=== PATIENT | female | born 1950 | race Caucasian/White ===

== ENCOUNTER 2019-03-02 13:00 | Outpatient (RCR) | payer MEDICARE, SELFPAY ==
--- NOTE | 2019-02-16 07:52 | HP.PTEVAL_ITS ---
Patient's Visit Information SHANE BRITO is a 69 year old F referred to Physical Therapy by GRACIE GarciaC with a diagnosis of spinal stenosis. Date of Evaluation: 02/16/19 Physical Therapist: Barrera Allen, PT, ATC - Visit Plan Frequency: 2x /Week Duration: 2-4 Weeks Plan: SKTC/DKTC, core stab ex's, L LE strengthening, postural edu, nustep, and HEP - Subjective Findings: Pt reports she has had LBP for 10 years. Pt reports the pain has become consistent now, but the bad pain comes and goes. Pt reports 2 years ago her surgeon told her she would eventually need surgery, and she believes she is getting to that point. Pt reports she had x rays taken which revealed she has spinal stenosis. Pt reports she was told she has to do PT prior to having surgery. Pt reports she has constant tingling and numbness in her L LE which extends to her toes. Pt reports she has significant sleep difficulty secondary to pain. Pt reports she can sleep for about 4 hours until she has to wake up from the pain. Pt reports house chores and batheing her dog causes pain. Pt reports sitting is worse than standing. Pt reports it feels really good to bend forward. Pain is 5/10 at rest, 8/10 at worst. - Pain LBP Pain Intensity (Out of 10): 5 Pain Intensity Range: 8 - Objective Neuro: B LE sensation is WNL to light touch. B patellar reflex= 2/3. MMT: R LE is grossly 5/5 throughout. L LE is grossly 4/5 throughout. ROM: Pt is moderately limited with L/S extension. All other ranges are within normal limits. Gait: Pt begins to xperience significant LBP and L LE radiculopathy after 600'. Still able to ambulate 1000 feet but pain continued to increase. Repeated movements: SKTC/DKTC with 10 sec hold x 3 ea - Goals Goal 1:: Decrease LBP x 50% to aid with sleep Goal Time Frame: 2-4 Weeks Goal 2:: Decrease the frequency and intensity of L LE radiculopathy x 25% to aid with ambulation Goal Time Frame: 2-4 Weeks Goal 3:: I with HEP Goal Time Frame: 2-4 Weeks - Rehabilitation Potential Physical Therapy Diagnosis: Pt has LBP, limited L/S ROM, and L LE weakness secondary to spinal stenosis Rehabilitation Potential: Good - Anticipated Interventions Patient/Client Instruction: Educate patient on: Condition, Plan of Care For the Purpose of:: To improve self management Therapeutic Exercise to Include: Strength training, Endurance training, Postural training, Dynamic Lumbar Stabilization For the Purpose of:: To decrease pain, To increase ROM, To improve muscle performance and motor function Cryotherapy (ice pack, ice massage): Yes Thermo therapy (hot pack): Yes For the Purpose of:: To decrease pain Thank you for the opportunity to evaluate your patient. For Medicare and Medicare HMO plans, please review the plan of care and approve it. It will need to be FAXED BACK to us at [phone] for Medicare purposes. For Medicare only, by signing this I certify the plan of care. Please let me know if there are questions or concerns regarding this plan of care. Physician Signature: Date:___
--- NOTE | 2019-03-02 13:27 | HP.PTDCSUM ---
HP - PT D/C Summary It has been my pleasure to treat SHANE BRITO under orders from Shira Avila, JOSE-C, for the diagnosis of spinal stenosis for a total of 5 visit(s). Discharge Date: Please see the following information for a summary of their discharge status. - Subjective Subjective: Pt reports PT has only increased her pain - Pain LBP Pain Intensity (Out of 10): 6 - Overall Improvement % Improvement: 0 - Objective Objective/Function: Pain has remained at 6/10. L LE radiculopathy has remained the same. Pt is not making any progress at this time. - Goals Goal 1:: Decrease LBP x 50% to aid with sleep Goal Progress: Not Progressing Goal 2:: Decrease the frequency and intensity of L LE radiculopathy x 25% to aid with ambulation Goal Progress: Not Progressing Goal 3:: I with HEP Goal Progress: Goal Met - Plan Plan: Discontinue, RTD - D/C Information If there are questions or concerns regarding this patient's physical therapy, please feel free to call me at [phone]. Thank you for the referral of this patient. Sincerely, Barrera Allen, PT, ATC
== END 2019-03-02 14:44 | disposition home or self-care (01) ==
LOC: PT 13:00
PROVIDERS: Family Provider Surgery; PCP Surgery; Visit Provider Nurse Practitioner
DX: M48.061 Spinal stenosis, lumbar region without neurogenic claudication (principal)
CPT/HCPCS: 97110; 97161; 97530

== ENCOUNTER 2021-09-17 10:00 | Outpatient (RCR) | payer MEDICARE, SELFPAY ==
--- NOTE | 2021-08-27 09:02 | HP.PTEVAL_ITS ---
Patient's Visit Information SHANE BRITO is a 71 year old F referred to Physical Therapy by PENNY Pena with a diagnosis of LUMBAR STENOSIS WITH NEUROGENIC CLAUDICATION. Date of Evaluation: 08/27/21 Physical Therapist: Elyssa Ahumada, PT, Cert MDT - Visit Plan Frequency: 2-3x /Week Duration: 4-6 Weeks Plan: AQUATIC THERAPY FOR PAIN RELIEF, POSTURE CORRECTION/STRENGTHENING, INSTRUCTION IN APPROPRIATE BODY MECHANICS AND ACTIVITY MODIFICATIONS. DLS START ING WITH A NEUTRAL SPINE PROGRESSING ROM TOLERATED. NOEMI LE ROM, STRETCHING AND STRENGTHENING. HEP INSTRUCTION. 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 MWF DOES TREADMILL OR ELYPICAL OR WEIGHTS. T,TH DOES 30 MIN ON TREADMILL. [employer]. Interview. [employer]. [employer]ION VOLUNTEER. TRAV[place]ROUGHOUT [place] HAS 6 PROJECTS PLANNED THIS YEAR. Present symptoms: LOW BACK PAIN NOEMI, LEFT FOOT IS ALWAYS NUMB AND RIGHT FOOT IS STARTING TO GET NUMB TOO. PAIN IN RIGHT HIP AND THIGH. RIGHT LE WEAKNESS. Present since: ABOUT 6 MONTHS. Pain Scale: WORST 5/10, LEAST 3/10. Currently: 3/10. Commenced as a result of: NO APPARENT REASON. Symptoms at onset: RIGHT LOW BACK AND HIP PAIN. Worse: TRYING TO LIE DOWN AND SLEEP AT NIGHT, PROLONGED SITTING, RISING FROM SITTING AND TRYING TO WALK AFTER SITTING, WALKING, TWISTING, LIFTING AND TWISTING TOGETHER. STANDING. Better: HEAT, ADVIL. Disturbed sleep: YES. Previous history/Previous treatment: BACK SURGERY FOR STENOSIS APPROX [address] COSTA MONK. LEFT L3 AND LEFT L4 UNILATERAL LAMINECTOMY WITH LEFT L3-L4 MICRODISCECTOMY, LEFT L3-L4 PARTIAL FACETECTOMY AND FORMAINOTOMIES AND L3 AND L4 ON 05/11/19. NO AAKASH'S. PT PRIOR TO SURGERY BUT IT MADE IT WORSE. NO CHIROPRACTOR. LUMBAR MRI [facility] 2017 SHOWING DDD AND SPINAL STENOSIS. Treatment this episode: PT CONSULT. Coughing/sneezing/straining: NEGATIVE. Gait: LIMPING ON RIGHT LE. Difficulty initiating urination: NO. DENIES BOWEL AND BLADDER DYSFUNCTION. Accidents: NO. Unexplained weight loss: NO. Imaging: RECENT [facility] OF LOW BACK - PATIENT REPORTS IT WAS NORMAL. RECOMMENDED PT AND IF THAT DOESN'T HELP WILL DO MRI. PMH/Recent major surgery: ASTHMA, FIBROMYALGIA, ARTHRITIS, *OSTEOPROSIS*, SLEEP AID. OTHER: LEAVING FOR MISSION TRIP BEGINNING OF SEPTEMBER 2021. - Objective Sitting/Standing Posture: POOR. REDUCED LORDOSIS BUT NO RELEVENT LATERAL SHIFT. Active Correction of posture: NE. Other Observations: INDEP GAIT INTO PT WITHOUT ANY ASSISTIVE DEVICES BUT LIMPING ON RIGHT LE. LIMP IS WORSE UPON INITIATION OF GAIT AFTER SITTING. INDEP TRANSFER SIT TO STAND WITHOUT UE ASSIST. Motor deficit: NOEMI LE STRENGTH 5/5 WITH MMT'ING EXCEPT HIPS 4/5. Sensory deficit: NOEMI LE LIGHT TOUCH SENSATION GROSSLY INTACT AND SYMMETRICAL EXCEPT NOEMI FEET WITH DECREASED SENSATION. ROM deficit: NOEMI LE'S WFL. Reflexes: RIGHT LE QUAD AND ACHILLES 2/3. L LE ABSENT. Dural Signs: NEGATIVE NOEMI LE'S. Lumbar mvmt loss: flex - NIL. ext - MOD. R SG - MOD. L SG - MOD. PATIENT C/O INCRASED LBP WITH LUMBAR EXT AND NOEMI SG ROM TESTING. Core strength: POOR. Palpation: NO ACUTE TENDERNESS WITH PALPATION OF THE LOWER THORACIC, LUMBAR OR SACRAL REGIONS. TREATMENT: NEUROMUSCULAR REEDUCATION - RETRAINING OF MVMT AND POSTURE FOR SITTING, LYING AND STANDING ACTIVITIES. - Balance/Special Test Scores Oswestry Low Back Score: 10 - Goals Goal 1:: DECREASE C/O LOW BACK AND RIGHT LE SX'S. Goal Time Frame: 4-6 Weeks Goal 2:: IMPROVE LIFTING, SITTING, STANDING, SLEEP, SOCIAL LIFE, TRAVEL AND HOMEMAKING FUNCTION Goal Time Frame: 4-6 Weeks Goal 3:: INSTRUCT IN PROPHYLAXIS Goal Time Frame: 4-6 Weeks - Anticipated Interventions Patient/Client Instruction: Educate patient on: Condition, Plan of Care, Risk Factors For the Purpose of:: To improve self management Therapeutic Exercise to Include: Strength training, Body mechanics, Postural training, Flexibilty training, Gait and locomotor training, Neuromotor development, In an aquatic setting, Dynamic Lumbar Stabilization For the Purpose of:: To decrease pain, To increase ROM, To improve muscle performance and motor function, To increase tolerance to activity/condition/position, To improve ability of physical actions for home/community/work/leisure, To improve gait and locomotor functions Thank you for the opportunity to evaluate your patient. For Medicare and Medicare HMO plans, please review the plan of care and approve it. It will need to be FAXED BACK to us at [phone] for Medicare purposes. For Medicare only, by signing this I certify the plan of care. Please let me know if there are questions or concerns regarding this plan of care. Physician Signature: Date:
--- NOTE | 2021-09-17 11:12 | HP.PTDCSUM_ITS ---
It has been my pleasure to treat SHANE BRITO referred by PENNY Pena, with the diagnosis of LUMBAR STENOSIS WITH NEUROGENIC CLAUDICATION for a total of 10 visit(s). Discharge Date: 09/17/21 Please see the following information for a summary of their discharge status. Subjective: PATIENT REPORTS SHE IS DOING A LOT BETTER. SHE REPORTS THE PAIN IN HER HIPS IS BETTER. SHE REPORTS SHE IS SLEEPING BETTER TOO. IN GENERAL SHE REPORTS SHE FEELS SHE IS STRONGER AND CAN CORRECT HER MECHANICS NOW FOR PAIN RELIEF. LEAVING FOR [place]ION TRIP NEXT THURSDAY. PLANS TO USE HER MEMBERSHIP TO CONTINUE INDEP WATER PROGRAM BEFORE AND AFTER MISSION TRIP. PATIENT REPORTS HER BACK STILL HURTS THOUGH. HAPPY TO REPORT SHE WAS ABLE TO TRAVEL TO [place] TO SEE HER DAUGHTER WITH MUCH LESS PAIN AND THAT WAS A BIG IMPROVEMENT. NO CHANGE IN FOOT SX'S. Lumbar Spine Pain Intensity (Out of 10): 6 RLE Pain Intensity (Out of 10): 6 LLE Pain Intensity (Out of 10): 0 % Improvement: 75 Objective/Function: PATIENT WAS SEEN TODAY FOR RE-ASSESSMENT OF PROGRESS TOWARD THE SET PT GOALS AND THE NEED FOR FURTHER PHYSICAL THERAPY VS READINESS FOR DISCHARGE. UPON EXAM TODAY, PATIENT IS MAKING GOOD PROGRESS TOWARD ALL PT GOALS BUT HAS TO STOP AT THIS TIME DUE TO LEAVING FOR A MISSION TRIP. PATIENT CONTINUES TO HAVE A LIMP ON THE RIGHT LE AND LUMBAR MVMT LOSS SIMILAR TO INITIAL EVAL. SHE IS ABLE TO RISE FROM SITTING AND INITIATE GAIT MUCH BETTER NOW THOUGH. PHYSICIAN RE-ASSESSMENT RECOMMENDED AND PATIENT AGREEABLE. INSTRUCTED PATIENT IN PROPER USE OF BACK BRACE WHILE ON MISSION TRIP. INSTRUCTED PATIENT ON APPROPRIATE RESUMPTION OF EX AFTER MISSION TRIP BASED ON SX'S. PATIENT COMMUNICATED A GOOD UNDERSTANDING OF ALL INSTRUCTIONS AFTER GIVEN. Goal 1:: DECREASE C/O LOW BACK AND RIGHT LE SX'S. Goal Progress: Progressing Goal 2:: IMPROVE LIFTING, SITTING, STANDING, SLEEP, SOCIAL LIFE, TRAVEL AND HOMEMAKING FUNCTION Goal Progress: Progressing Goal 3:: INSTRUCT IN PROPHYLAXIS Goal Progress: Progressing Plan: D/C DUE TO UPCOMING MISSION TRIP X APPROX 1 MONTH. If there are questions or concerns regarding this patient's physical therapy, please feel free to call me at [phone]. Thank you for the referral of this patient. Sincerely, Elyssa Ahumada, PT, Cert MDT Balance/Gait/Functional tests - Balance/Special Test Scores Oswestry Low Back Score: 9
== END 2021-09-17 12:23 | disposition home or self-care (01) ==
LOC: PT 10:00
PROVIDERS: PCP Family Medicine; Referring Provider Nurse Practitioner Acute Care; Visit Provider Nurse Practitioner Acute Care
DX: M48.062 Spinal stenosis, lumbar region with neurogenic claudication (principal)
CPT/HCPCS: 97112; 97113; 97164

== ENCOUNTER 2022-02-20 10:30 | Outpatient (RCR) | payer MEDICARE, SELFPAY ==
--- NOTE | 2022-01-23 08:59 | HP.PTEVAL ---
Patient's Visit Information SHANE BRITO is a 71 year old F referred to Physical Therapy by PENNY Cheatham with a diagnosis of LUMBAR DDD, RADICULITIS, STENOSIS, IVD DISPLACEMENT AND SPONDYLOSIS.. Date of Evaluation: 01/23/22 Physical Therapist: Elyssa Ahumada, PT, Cert MDT - Visit Plan Frequency: 1x/Week Duration: 3 Weeks Plan: INSTRUCTION IN GYM EX PROGRAM FOR CORE STABILITY AND LE STRENGTH STARTING SLOW AND INSTRUCTING PATIENT HOW TO SAFELY PROGRESS INDEP'LY. - Subjective Work/Leisure: RETIRED. 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 MWF DOES TREADMILL OR ELYPICAL OR WEIGHTS. T,TH DOES 30 MIN ON TREADMILL. [employer]. [employer]ION VOLUNTEER. TRAV[place]S THROUGHOUT [place] HAS 6 PROJECTS PLANNED THIS YEAR. Present symptoms: MILD LOW BACK PAIN NOEMI, LEFT FOOT IS ALWAYS NUMB AND RIGHT FOOT IN R FOOT IS ALWAYS NUMB TOO BUT L>R. INTERMITTENT NOEMI HIP PAIN MAINLY AT NIGHT. Present since: ABOUT A YEAR OR MORE AGO. Pain Scale: WORST 3/10, LEAST 1/10. Currently: /10. Commenced as a result of: NO APPARENT REASON. Symptoms at onset: RIGHT LOW BACK AND HIP PAIN. Worse: BENDING, LIFTING AND TWISTING TOGETHER Better: NORMAL MOVEMENT. Disturbed sleep: NO Previous history/Previous treatment: BACK SURGERY FOR STENOSIS APPROX [address] COSTA MONK. LEFT L3 AND LEFT L4 UNILATERAL LAMINECTOMY WITH LEFT L3-L4 MICRODISCECTOMY, LEFT L3-L4 PARTIAL FACETECTOMY AND FORMAINOTOMIES AND L3 AND L4 ON 05/11/19. PT PRIOR TO SURGERY BUT IT MADE IT WORSE. NO CHIROPRACTOR. LUMBAR MRI [facility] 2016 SHOWING DDD AND SPINAL STENOSIS. Treatment this episode: AAKASH WITH DR. ZAZUETA ABOUT A MONTH AGO. OTHER: PATIENT REPORTS SHE IS CURRENTLY DOING GOOD AND SHE RELATES THE IMPROVEMENT TO A COMBINATION OF AQUATIC THERAPY AND THE AAKASH. SHE IS BACK TODAY TO SEE IF SHE CAN PROGRESS TO A SAFE LAND EX PROGRAM. HAS NOT EXERCISED WITH WEIGHT MACHINES SINCE BEFORE SHE DID THE AQUATIC THERAPY. SHE REPORTS SHE CONTINUED HER WATER EX PROGRAM UNTIL ABOUT A MONTH AGO AND FEELS SHE IS MIGHT BE READY TO PROGRESS TO LAND NOW. Coughing/sneezing/straining: NEGATIVE. Gait: NORMAL. Difficulty initiating urination: NO. DENIES BOWEL AND BLADDER DYSFUNCTION. Accidents: NO. Unexplained weight loss: NO. Imaging: NONE RECENT THAT PATIENT CAN RE-CALL BUT SHE THINKS SHE DID HAVE AN MRI SOMEWHERE THIS YEAR. PMH/Recent major surgery: ASTHMA, FIBROMYALGIA, ARTHRITIS, *OSTEOPROSIS*. - Objective Sitting/Standing Posture: POOR. REDUCED LORDOSIS BUT NO RELEVENT LATERAL SHIFT. Active Correction of posture: NE. Other Observations: INDEP GAIT INTO PT WITHOUT ANY ASSISTIVE DEVICES OR LIMPING ON RIGHT LE. INDEP TRANSFER SIT TO STAND WITHOUT UE ASSIST. Motor deficit: NOEMI LE STRENGTH 5/5 WITH MMT'ING EXCEPT HIPS 4/5. Sensory deficit: NOEMI LE LIGHT TOUCH SENSATION GROSSLY INTACT AND SYMMETRICAL EXCEPT NOEMI FEET WITH DECREASED SENSATION. ROM deficit: NOEMI LE'S WFL. Dural Signs: NEGATIVE NOEMI LE'S. Lumbar mvmt loss: flex - NIL. ext - MOD. R SG - MOD. L SG - MOD. PATIENT DENIES LBP WITH LUMBAR EXT AND NOEMI SG ROM TESTING. Core strength: FAIR. - Balance/Special Test Scores Oswestry Low Back Score: 1 - Goals Goal 1:: PATIENT WILL BE INDEP WITH A GYM EX PROGRAM TO IMPROVE CORE STABILITY AND LE STRENGTH. Goal Time Frame: 2 Weeks - Anticipated Interventions Patient/Client Instruction: Educate patient on: Benefits of Fitness Program For the Purpose of:: To improve self management Therapeutic Exercise to Include: Strength training, Body mechanics, Postural training For the Purpose of:: To improve muscle performance and motor function Thank you for the opportunity to evaluate your patient. For Medicare and Medicare HMO plans, please review the plan of care and approve it. It will need to be FAXED BACK to us at [phone] for Medicare purposes. For Medicare only, by signing this I certify the plan of care. Please let me know if there are questions or concerns regarding this plan of care. Physician Signature: Date:
--- NOTE | 2022-02-20 11:00 | HP.PTDCSUM ---
It has been my pleasure to treat SHANE BRITO referred by PENNY Cheatham, with the diagnosis of LUMBAR DDD, RADICULITIS, STENOSIS, IVD DISPLACEMENT AND SPONDYLOSIS. for a total of 4 visit(s). Discharge Date: 02/20/22 Please see the following information for a summary of their discharge status. Subjective: PATIENT REPORTS SHE IS DOING REALLY GOOD. NOEMI LOW Pain Intensity (Out of 10): 2 % Improvement: 100 Objective/Function: PATIENT WAS SEEN TODAY FOR RE-ASSESSMENT OF PROGRESS TOWARD THE SET PT GOALS AND THE NEED FOR FURTHER PHYSICAL THERAPY VS READINESS FOR DISCHARGE (SEE THER EX ABOVE) UPON EXAM TODAY: PATIENT DEMONSTRATED AND COMMUNICATED A GOOD UNDERSTANDING OF ALL INSTRUCTIONS AFTER GIVEN. WRITTEN GYM EX LOG PROVIDED TO PATIENT. ABLE TO GET FEET UP ON LEG PRESS WITHOUT DIFFICULTY TODAY. MINIMAL CUES NEEDED WITH CYBEX CELI EX'S. AND WTS ADJUSTED A BIT TO REMAIN PAINFREE AND USE GOOD TECHNIQUE. ALL GOALS MET. Goal 1:: PATIENT WILL BE INDEP WITH A GYM EX PROGRAM TO IMPROVE CORE STABILITY AND LE STRENGTH. Goal Progress: Goal Met Plan: D/C TO INDEP EX PROGRAMS. PATIENT AGREEABLE. If there are questions or concerns regarding this patient's physical therapy, please feel free to call me at [phone]. Thank you for the referral of this patient. Sincerely, Elyssa Ahumada, PT, Cert MDT Balance/Gait/Functional tests - Balance/Special Test Scores Oswestry Low Back Score: 0
== END 2022-02-20 13:08 | disposition home or self-care (01) ==
LOC: PT 10:30
PROVIDERS: PCP Family Medicine; Referring Provider Nurse Practitioner Family; Visit Provider Nurse Practitioner Family
DX: M51.17 Intervertebral disc disorders with radiculopathy, lumbosacral region (principal); M48.07 Spinal stenosis, lumbosacral region; M47.27 Other spondylosis with radiculopathy, lumbosacral region
CPT/HCPCS: 97110; 97162; 97164; 97530

== ENCOUNTER 2023-02-26 08:00 | Outpatient (RCR) | payer MEDICARE, SELFPAY ==
--- NOTE | 2023-01-21 08:15 | HP.OTEVAL ---
Patient's Visit Information Visit Information Visit Information: SHANE BRITO is a 72 year old F, referred to Occupational Therapy by Dr. Patric Roberts MD, with a diagnosis of ganglion cyst right LF. Date of Evaluation: 01/20/23 Occupational Therapist: Valerie Barnes, OTR/Remy, CHT Subjective Subjective: This 72 year old female was seen for OT eval with dx of ganglion cyst of right LF. pt had sx. on January 15, 2023 and arrives today for evaluation. pt states really no pain and minimal swelling. states she is changing incision dressing daily. admits she is not performing her ex. 6-8x a day per OT rec'd. ADLs Dressing: Pants and Socks Bathing: Handle washcloth & soap and Wash hair Kitchen: Peel fruits & vegetables, Open jars, Open bottle caps, Lift gallon of milk and Lift saucepan Comments: Due to supportive splint pt limited with IND use of right hand for all ADls and IADLs Pain left LF: Current Pain Intensity: 1 Pain Intensity Range: 1 Objective Objective/Observation: incision clean-dry- red with slight swelling ROM MP: right LF 0/80 PIP: right LF -25/30 DIP: right LF 0/5 ROM Comments: pt demo with healing incision Edema Other: slight signs of swelling Sensation Sensation Comments: denies Quick DASH-Disab of Arm,Shoulder& Hand Quick DASH Score: 45.4525 Goals Goal:Daily scar massage when approriate: Yes Goal:ROM equal to unaffected hand: Yes Goal:Founder And Chief Technical Officer/Pinch strength at least 75% of unaffected hand: Yes Comment: will not initiate until week 6 Goal:No pain with affected hand use: Yes Goal:Decrease scar hypersensitivity: Yes Other Goal: Eval tx AAROM/AROM to digits edema reduction tech remove drssing begin short arch ROM digital gutter splint May progress to full ROM at 3 weeks s/p and then orthosis at night x 4 weeks Rehabilitation General Assessment: Pt arrives5 days following ganglion cyst removal of right LF. Pt also states sx did remove some spurs and cleaned up finger. Pt demo with newly healing incision and limited ROM increasing need of assistance with ADLs and IADLs. pt would benefit from skilled OT services 1-2x week for 4-6 weeks to assist pt in returning to her PLOF. Rehabilitation Potential: Good Anticipated Interventions Anticipated Interventions: A/AAROM/PROM, Edema Control, Scar Care, Triggerpoint Release, Modalities, Orthoses, Joint Protection/Energy Conservation, Ergonomic Education, Education re Diagnosis and Home Program Visit Plan Frequency: 1-2x /Week Duration: 6 Weeks General Plan: Eval tx AAROM/AROM to digits edema reduction tech remove drssing begin short arch ROM digital gutter splint May progress to full ROM at 3 weeks s/p and then spling at night x 4 weeks TEXT: Thank you for the opportunity to evaluate your patient. For Medicare and Medicare HMO plans, please review the plan of care and approve it. It will need to be FAXED BACK to us at [phone] for Medicare purposes. Please let me know if there are questions or concerns regarding this plan of care. Physician Signature: Date:
--- NOTE | 2023-02-26 08:31 | HP.OTREVAL ---
Re-Evaluation Intro: Dr. Patric Roberts MD, It has been my pleasure to treat SHANE BRITO over the last 9 visits for ganglion cyst right LF. Please see the progress note below for an update on the occupational therapy plan of care! Subjective Subjective: Pt arrives at 6 weeks s/p from right LF ganglion cyst removal. Pt reports no limits in her daily activities and is using her hand throughout her daily tasks. She reports no pain. Objective Objective/Function: Pt has been seen for 9 skilled OT visits. Pt is using her right little finger within functional daily tasks. Pt continues to have a lag in extension of the DIP. Patient has been educated in traction stretching, place and hold for flexion/extension for improvement in mobility. Pt was given a handout of an LMB with education of wear. Also recommended to wear gutter splint at night. Measurements were taken and are listed below. right LF MCP Current +19/109 Prior 0/80 right LF PIP Current -30/84 Prior -25/30 right LF DIP Current -10/11, with blocking flexion 15 Prior 0/5 please advise tx plan as needed therapy session was directly supervised and doc. approved by Valerie PARTIDA/Remy,CHT. Plan Plan Frequency: 1-2x /Week Duration: 6 Weeks Visits in this POC: 12 Plan: pt advised to return to wearing the gutter splint at night due to increase in PIP extension lag and LMB day to increase PIP extension pt to continue with DIP blocking pt to return to Dr. Goals Goals Patient Goals: Regain Mobility and Use Hand/Wrist/Arm Normally Again Goal:Daily scar massage when approriate: Yes Goal:ROM equal to unaffected hand: Yes Goal:Perinatal Technician/Pinch strength at least 75% of unaffected hand: Yes Goal:No pain with affected hand use: Yes Goal:Decrease scar hypersensitivity: Yes Other Goal: Eval tx AAROM/AROM to digits edema reduction tech remove drssing begin short arch ROM digital gutter splint May progress to full ROM at 3 weeks s/p and then orthosis at night x 4 weeks Anticipated Interventions Anticipated Interventions Anticipated Interventions: A/AAROM/PROM, Edema Control, Scar Care, Triggerpoint Release, Modalities, Orthoses, Joint Protection/Energy Conservation, Ergonomic Education, Education re Diagnosis and Home Program Re-Evaluation Ending Re-evaluation ending: Please do not hesitate to contact me at [phone] by phone or if you have questions or concerns regarding this new plan of care! Sincerely, Valerie Barnes OTR/L, CHT
--- NOTE | 2023-07-02 12:44 | HP.OTDCSUM ---
Discharge Summary D/C Summary: It has been my pleasure to treat SHANE BRITO under orders from Dr. Patric Roberts MD, for the diagnosis of ganglion cyst right LF for a total of 9 visit(s). Please see the following information for a summary of their discharge status. Overall Improvement % Improvement: 75 Objective Objective/Function: Pt has been seen for 9 skilled OT visits. Pt is using her right little finger within functional daily tasks. Pt continues to have a lag in extension of the DIP. Patient has been educated in traction stretching, place and hold for flexion/extension for improvement in mobility. Pt was given a handout of an LMB with education of wear. Also recommended to wear gutter splint at night. Measurements were taken and are listed below. right LF MCP Current +/109 Prior 0 right LF PIP Current - Prior - right LF DIP Current -05/06, with blocking flexion 15 Prior 0 therapy session was directly supervised and doc. approved by Valerie Barnes OTR/L,CHT. Goals Patient Goals: Regain Mobility and Use Hand/Wrist/Arm Normally Again Goal:Daily scar massage when approriate: Yes Goal:ROM equal to unaffected hand: Yes Goal:Transplant Surgeon/Pinch strength at least 75% of unaffected hand: Yes Goal:No pain with affected hand use: Yes Goal:Decrease scar hypersensitivity: Yes Other Goal: Eval tx AAROM/AROM to digits edema reduction tech remove drssing begin short arch ROM digital gutter splint May progress to full ROM at 3 weeks s/p and then orthosis at night x 4 weeks Plan Plan: pt advised to return to wearing the gutter splint at night due to increase in PIP extension lag and LMB day to increase PIP extension pt to continue with DIP blocking pt to return to Dr. D/C Information d/c sentence: If there are questions or concerns regarding this patient's occupational therapy, please fell free to call me at [phone]. Thank you for the referral of this patient. Sincerely, HELGA Erickson/L, CHT
== END 2023-02-26 19:00 | disposition home or self-care (01) ==
LOC: OT 08:00
PROVIDERS: PCP Family Medicine; Referring Provider Orthopaedic Surgery; Visit Provider Orthopaedic Surgery
DX: M67.441 Ganglion, right hand (principal)
CPT/HCPCS: 97110; 97140; 97166; 97530

== ENCOUNTER 2023-08-03 13:40 | Emergency (ER) | payer MEDICARE, SELFPAY ==
[2023-08-03 13:41] VITALS: BP 129/85; PULSE 82; RESP 18; TEMP 35.8; O2SAT 99; BMI 22.1
--- NOTE | 2023-08-03 13:58 | RAD_ITS ---
STUDY: X-RAY CHEST REASON FOR EXAM: Female, 73 years old. Chest pain. TECHNIQUE: Single frontal view of the chest. COMPARISON: None. FINDINGS: Hyperinflation. There is no demonstrated pleural abnormality. Borderline cardiomegaly. Normal mediastinum and kevon. Normal visualized pulmonary arteries. Aortic tortuosity with calcification. Normal visualized thoracic spine. Normal visualized ribs, clavicles, and shoulders. There is no demonstrated abnormality of the visualized soft tissue structures of the upper abdomen. RAD/Chest 1 View (Portable) IMPRESSION: No active or acute cardiopulmonary disease. Electronically Signed: David Smith MD at 14:56 EST ,
--- NOTE | 2023-08-03 13:58 | EKG12_ITS ---
Test Reason : CHEST TIGHTNESS Blood Pressure : / mmHG Vent. Rate : 074 BPM Atrial Rate : 074 BPM P-R Int : 196 ms QRS Dur : 066 ms QT Int : 382 ms P-R-T Axes : 076 049 059 degrees QTc Int : 424 ms Normal sinus rhythm Normal ECG Confirmed by TOYIN MILLER, BLAINE ([id number]), senior editor SHERRY HAN ([id number]) on 08/04/2023 10:06:56 AM Referred By: Confirmed By:BLAINE DEAL MD
--- NOTE | 2023-08-03 14:02 | EX.ED.DYSGE1 ---
HPI <PENNY Cassidy - Last Filed: 08/03/23 15:27> History of Present Illness Chief Complaint: Chest Pain Narrative Narrative: Patient is a 73-year-old female with history of arthritis asthma who presents to the emergency department with complaints of midsternal chest tightness, some radiation to the left shoulder left arm. The symptoms have been ongoing for the last 2 weeks, they have been intermittent. Patient states that they are not worse on exertion, she goes to the gym 5 times a week, while she is on the treadmill walking they have not affected her. Patient states that this occurred last evening when it radiated down her left arm, she was more concerned, calling her PCP who referred her to the emergency department. Patient denies any cardiac history, has not had any cardiac workup such as a stress test, echocardiogram. Patient denies any recent travel, history of blood clots in the legs or lungs PFSH <PENNY Cassidy - Last Filed: 08/03/23 15:27> [facility] Allergy/AdvReac Type Severity Reaction Status Date / Time Penicillins AdvReac Mild Nausea Verified 08/03/23 13:43 Sulfa (Sulfonamide AdvReac Mild Nausea Verified 08/03/23 13:43 Antibiotics) Social History Smoking Status: Never smoker ROS <PENNY Cassidy - Last Filed: 08/03/23 15:27> ROS ED ROS Narrative Constitutional: Negative for fever, chills, weight loss, weakness Eyes: Negative for vision loss, vision change, double vision ENT: Negative for any sore throat, ear pain, congestion Cardiovascular: Negative for any palpitations. Positive chest pain, chest tightness Respiratory: Negative for any cough, sputum production, hemoptysis, dyspnea, dyspnea on exertion, orthopnea Gastrointestinal: Negative for any abdominal pain, nausea, vomiting, diarrhea, constipation, blood in stool, blood in vomit : Negative for any urinary frequency, dysuria, retention, blood in urine Muscle skeletal: Negative for any myalgias, arthralgias, neck pain, back pain. For radiation to pain to the left shoulder Neurological: Negative for any headache, syncope, paresthesias, dizziness Skin: Negative for any rashes, lumps, itching, abrasions, lacerations Psychiatric: Negative for any depression, anxiety, stress, suicidal ideation, homicidal ideation Hematologic: Negative for any easy bruising, excessive bruising, easy bleeding Allergies: Negative for any eczema, hives, rash EXAM <PENNY Cassidy - Last Filed: 08/03/23 15:27> Physical Exam Narrative Exam Narrative: Vital signs reviewed. HEET: Head normocephalic atraumatic, TMs clear bilaterally. Posterior pharynx is clear, moist mucous membranes. Nares clear bilaterally. Neck: Supple with no lymphadenopathy or tenderness. No signs of meningismus. Cardiac: Regular rate and rhythm no murmurs gallops or rubs, equal peripheral pulses bilaterally. Respiratory: Lungs clear to auscultation bilaterally. No chest tenderness. Abdomen: Soft, nontender, nondistended. No abdominal bruit or pulsatile masses. No hepatosplenomegaly Extremities: No peripheral edema, no signs of gross trauma or deformity. Active full range of motion of all extremities. Neuro: Cranial nerves II through XII intact, no focal neurological deficits. Skin: Clean dry and intact with no rash, purpura, petechiae, vesicles or pustules. Backs/flank: No CVA tenderness, no midline spinal tenderness, no deformity. Psych: Normal mood and affect. No SI, HI or acute psychosis. Const Vital Signs: 08/03/23 13:41 Temperature 96.5 F L Temperature Source Temporal Pulse Rate 82 Respiratory Rate 18 Blood Pressure 129/85 H Blood Pressure Mean 99 Pulse Ox 99 Oxygen Delivery Method Room Air <Dr. Gallo Hurtado MD - Last Filed: 08/03/23 14:32> Physical Exam Const Vital Signs: 08/03/23 13:41 Temperature 96.5 F L Temperature Source Temporal Pulse Rate 82 Respiratory Rate 18 Blood Pressure 129/85 H Blood Pressure Mean 99 Pulse Ox 99 Oxygen Delivery Method Room Air MDM <PENNY Cassidy - Last Filed: 08/03/23 15:27> [facility] Lab Data Labs: Laboratory Results - last 24 hr 08/03/23 14:11 WBC 7.0 RBC 4.06 L Hgb 12.2 Hct 37.1 MCV 91.4 MCH 30.0 MCHC 32.9 RDW Std Deviation 45.0 H RDW Coeff of Angy 13.4 Plt Count 286 MPV 9.3 Immature Gran % (Auto) 0.300 Neut % (Auto) 62.7 Lymph % (Auto) 25.0 [place] % (Auto) 8.2 Eos % (Auto) 2.9 Baso % (Auto) 0.9 Absolute Neuts (auto) 4.4 Absolute Lymphs (auto) 1.74 Nucleated RBC % 0 Sodium 139 Potassium 3.9 Chloride 105 Carbon Dioxide 30.0 Anion Gap 4 L BUN 21 H Creatinine 0.93 Estim Creat Clear Calc 49.93 Est GFR (MDRD) Af Amer 77 Est GFR (MDRD) Non-Af 63 BUN/Creatinine Ratio 22.7 H Glucose 127 H Calcium 9.7 Total Bilirubin 0.60 AST 19 ALT 19 Alkaline Phosphatase 54 Troponin I High Sens 4 Total Protein 7.4 Albumin 3.6 Globulin 3.8 Albumin/Globulin Ratio 0.9 Radiography Diagnostic Testing: Clinical Impression(s) from Imaging Studies Chest X-Ray 08/03/23 13:58 IMPRESSION: No active or acute cardiopulmonary disease. Electronically Signed: David Smith MD at 14:56 EST , Treatment and Re-Evaluation :: Patient appears generally well, patient appears nontoxic, vital signs are stable. Presenting to the emergency department with complaints of midsternal chest pressure, tightness, radiation to the left arm. Differential diagnose includes ACS, MT, pneumonia, muscle skeletal pain, pulmonary embolus. Patient has no history of DVT, long car ride, travel, recent surgery. Patient is asymptomatic on exam. The patient's symptoms are intermittent. Patient received a two-view chest x-ray. Basic laboratory values including troponin will be drawn. All radiologic examinations were read, reviewed by the emergency department attending. From these reads, a plan of care will be put in place. Patient's CBC was unremarkable, chemistries were unremarkable, patient had negative troponin. EKG showed no acute cardiopulmonary process, negative for any ACS, MT. Secondary to the patient's coronary of becoming more short of breath going uphill, did speak with the patient regarding admission for cardiac testing. However we did do shared decision-making, patient like to performed this cardiac testing outpatient. I will speak to the patient's primary care provider and have a outpatient stress test set up [facility]. Patient and were given strict return precaution to return here for worsening chest pain, shortness of breath, fever or chills. All questions were answered, patient stable for discharge. <Dr. Gallo Hurtado MD - Last Filed: 08/03/23 14:32> [facility] Narrative Medical decision making narrative: I have personally performed a face to face assessment of the patient and have reviewed the [facility]HDI Note. I performed a substantive portion of the visit including all aspects of the following. My marcelo findings include: History is [73-year-old healthy female. States over the last several weeks she has had a squeezing chest discomfort. Not specifically associated with exertion. She works out several times a week and has had not had any problems on the treadmill. She has noticed walking her dog or walking up a hill lately she has become more winded. No history of DVT or PE. No leg pain or swelling. No pleuritic chest pain. No hemoptysis. No recent travel, surgery or immobilization. She has no cardiac history or significant family history. She is a non-smoker.] Exam is [well-appearing 73-year-old female. Vital signs stable afebrile. HEENT exam unremarkable. Neck nontender. No JVD. Lungs clear to auscultation bilaterally. Heart regular rhythm no murmur. Chest wall nontender no rashes. No reproducible chest wall pain. Abdomen soft nontender. Moving all 4 extremities. Calves are nontender without edema. Equal symmetrical radial pulses. Normal motor strength. Back nontender. Neurologically she is awake and alert with no focal motor deficits.] Medical Decision Making [73-year-old female with chest pain. Cardiac workup will be done.] Other additions or changes: [None] History & Record Review Discussion w/independent historian: Patient Lab Data Attestation: I reviewed the patient's lab results. Lab results narrative: CBC normal. White count of 7. H&H 12 and 37. Platelets 286. Labs: Laboratory Results - last 24 hr 08/03/23 14:11 WBC 7.0 RBC 4.06 L Hgb 12.2 Hct 37.1 MCV 91.4 MCH 30.0 MCHC 32.9 RDW Std Deviation 45.0 H RDW Coeff of Angy 13.4 Plt Count 286 MPV 9.3 Immature Gran % (Auto) 0.300 Neut % (Auto) 62.7 Lymph % (Auto) 25.0 [place] % (Auto) 8.2 Eos % (Auto) 2.9 Baso % (Auto) 0.9 Absolute Neuts (auto) 4.4 Absolute Lymphs (auto) 1.74 Nucleated RBC % 0 Sodium 139 Potassium 3.9 Chloride 105 Carbon Dioxide 30.0 Anion Gap 4 L BUN 21 H Creatinine 0.93 Estim Creat Clear Calc 49.93 Est GFR (MDRD) Af Amer 77 Est GFR (MDRD) Non-Af 63 BUN/Creatinine Ratio 22.7 H Glucose 127 H Calcium 9.7 Total Bilirubin 0.60 AST 19 ALT 19 Alkaline Phosphatase 54 Troponin I High Sens 4 Total Protein 7.4 Albumin 3.6 Globulin 3.8 Albumin/Globulin Ratio 0.9 Radiography Diagnostic Testing: Clinical Impression(s) from Imaging Studies Chest X-Ray 08/03/23 13:58 IMPRESSION: No active or acute cardiopulmonary disease. Electronically Signed: David Smith MD at 14:56 EST Reading Location ID and State: [address] [place] [address] , Service support , Rhythm Strip Rhythm Strip: Sinus Rhythm Rate: 74 Ectopy: None EKG Initial EKG: Attestation: I personally reviewed and interpreted this EKG as follows: Interpretation: Sinus Rhythm and No Acute Injury Pattern Comments: Normal sinus rhythm no acute abnormality. Rate of 74. No signs of MT nor ischemia. No [id number]. Discharge Plan Triage Chief Complaint: Chest Pain ED Midlevel Provider: Cody Gonzalez ED Provider: Gallo Hurtado Dx/Rx/DC Orders Instructions: ED Chest Pain, Uncertain Cause Primary Care Provider: Tacos Johnson Referrals: Tacos Johnsno MD [Primary Care Provider] - Activity Restrictions/Additional Instructions: We did speak with your primary care physician's office, you need to follow-up outpatient for stress test CHAD. Return for any worsening symptoms Disposition Disposition: Home, Self Care
--- NOTE | 2023-08-03 14:07 | ED.RN ---
NO OLD EKG
[2023-08-03 14:22] LABS: Absolute Lymphocyte Count 1.74 X10^3/uL (0.83-4.51); Absolute Neutrophil Count 4.4 X10^3/uL (2.0-7.7); Basophil# 0.06 X10^3/uL; Basophil% 0.9 % (0-1); Eosinophils% 2.9 % (0-5); Hematocrit 37.1 % (37-47); Hemoglobin 12.2 g/dL (12.0-15.0); Lymphocyte # 1.74 X10^3/ul (0.83-4.51); Mean Corp Hgb Conc 32.9 g/dL (32-36); Mean Corpuscular Volume 91.4 fL (81-99); Mean Platelet Vol. 9.3 fl (6.2-12.0); Monocyte# 0.57 X10^3/uL; Monocyte% 8.2 % (0-10); NRBC Flagged by Analyzer 0 % (0-5); Neutrophil # 4.38 X10^3/uL (2.7-7.7); Neutrophil % 62.7 % (47-70); Platelet Count 286 K/mm3 (150-450); RBC Distribution Width CV 13.4 % (11.6-14.6); Red Blood Count 4.06 M/mm3 (4.2-5.4)
[2023-08-03 14:40] LABS: ALB/GLOB Ratio 0.9 RATIO (0.9-2.4); AST(SGOT) 19 U/L (15-37); Alanine Aminotransfer ALT/SGPT 19 U/L (13-56); Albumin, Serum 3.6 g/dL (3.2-5.0); Alkaline Phosphatase 54 U/L (45-117); Anion Gap 4 (5-15); BUN 21 mg/dL (7-18); BUN/Creat Ratio 22.7 RATIO (10-20); Calcium,Total 9.7 mg/dL (8.5-10.1); Chloride 105 mmol/L (98-107); Creatinine, Serum 0.93 mg/dL (0.55-1.02); EST Glomerular Filtration Rate 63 mL/min (>60); Est Glom Filt Rate - Afr Amer 77 mL/min (>60); Estimated Creatinine Clearance 49.93 ml/min; Globulin 3.8 g/dL (2.2-4.2); Glucose 127 mg/dL (74-106); Potassium 3.9 mmol/L (3.5-5.1); Protein, Total 7.4 g/dL (6.4-8.2); Sodium Level 139 mmol/L (136-145); Troponin-I HS 4 pg/mL (3.0-54.0)
--- OUTSIDE RECORDS SUMMARY | 2023-08-03 15:47 | XMS RPT_ITS | CCD ---
Author Name Unknown Address [address] [place] [address] Organization [facility] Care Team Providers Care 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 Name Role Phone [place] Funez DO Norm Unavailable Joan Hein MD Primary Care Provider Joan Hein MD Primary Care Provider [phone] Joan Hein MD Primary Care Provider Joan Hein MD Primary Care Provider [phone] JAON HEIN Primary Care Unavailable ALONA BAUER Attending Unavailable MELVINA, JOAN A Primary Care Unavailable MELVINA, JOAN A Primary Care Unavailable CHRYSTAL MARIEE Referring Unavailable MELVINA, JOAN A Primary Care Unavailable CHRYSTAL MARIEE Referring Unavailable MELVINA, JOAN A Primary Care Unavailable MELVINA, JOAN A Referring Unavailable CHRYSTAL MARIEE Attending Unavailable MELVINA, JOAN A Primary Care Unavailable MELVINA, JOAN A Referring Unavailable MELVINA, JOAN A Primary Care Unavailable MELVINA, JOAN A Primary Care Unavailable MELVINA, JOAN A Referring Unavailable MELVINA, JOAN A Primary Care Unavailable MELVINA, JOAN A Attending Unavailable MELVINA, JOAN A Primary Care Unavailable MELVINA, JOAN A Referring Unavailable MELVINA, JOAN A Primary Care Unavailable ALONA BAUER Referring Unavailable MELVINA, JOAN A Primary Care Unavailable MELVINA, JOAN A Primary Care Unavailable MARILOU NARVAEZ Attending Unavailable Allergies Allergy Classification Reported Allergen(s) Allergy Type Date of Onset Reaction(s) Facility (20 sources) Mold Extract; Translations: [MOLD] Drug Allergy 09-23-19 17 Other: See Comments [facility] Work Phone: (1 source) Penicillin G Drug Allergy 09-23-19 17 [facility] Work Phone: (1 source) Sulfacetamide Drug Allergy 09-23-19 17 [facility] Work Phone: (1 source) STINGING INSECTS; Translations: [STINGING INSECTS] allergy to substance 08-22-19 [facility] Work Phone: (1 source) PLANT POLLENS; Translations: [PLANT POLLENS] allergy to substance 09-23-19 hay fever [facility] Work Phone: (4 sources) Penicillins; Translations: [PENICILLINS] Propensity to adverse reactions to drug 08-20-19 05 Unknown [facility] Work Phone: (20 sources) Pollen; Translations: [POLLEN EXTRACTS] Drug Allergy 02-10-20 19 Other: See Comments [facility] Work Phone: (20 sources) Sulfonamides (Antibiotic); Translations: [SULFA (SULFONAMIDE ANTIBIOTICS)] Propensity to adverse reactions to drug 08-20-19 05 Unknown [facility] Work Phone: (20 sources) Penicillins Propensity to adverse reactions to drug 08-20-19 05 Unknown [facility] Work Phone: (20 sources) Alendronate; Translations: [ALENDRONATE] Drug Allergy 07-09-20 22 GI Upset [facility] (20 sources) Ibandronate; Translations: [IBANDRONATE] Drug Allergy 07-09-20 22 GI Upset [facility] (9 sources) Clindamycin; Translations: [CLINDAMYCIN] Drug Allergy 02-22-20 23 Rash [facility] Work Phone: Medications Current Medications Medication Drug Class(es) Dates Sig (Normalized) Sig (Original) azithromycin 250 mg oral tablet (1 source) Macrolide Antimicrobial Start: 12-31-2022 End: 01-05-2023 take 2 tablets by mouth once daily, then take 1 tablet by mouth once daily azithromycin (ZITHROMAX) 250 mg tablet Take 2 tablets by mouth once daily for 1 day, THEN 1 tablet once daily for 4 days. 6 tablet 0 12/31/2022 01/05/2023 Active Completed/Discontinued Medications Medication Drug Class(es) Dates Sig (Normalized) Sig (Original) [id number] 200 actuat albuterol 0.09 mg/actuat metered dose inhaler (20 sources) beta2-Adrenergic Agonist Start: 02-09-2019 End: 04-13-2023 take 2 puff(s) by inhalation every four hours as needed for wheezing albuterol HFA (VENTOLIN HFA) 90 mcg/actuation inhaler Inhale 2 Puffs as instructed every 4 hours as needed for Wheezing/Shortness of Breath. 1 Inhaler 5 02/09/2019 04/13/2023 Discontinued Problems Active Problems Problem Classification Problem Date Documented Date Episodic/Chronic Allergic reactions (3 sources) Allergic reaction; Translations: [Allergy, unspecified, initial encounter] 02-21-2023 Episodic Asthma (20 sources) Intrinsic asthma; Translations: [Unspecified asthma, uncomplicated] Onset: 10-31-2014 01-21-2021 Chronic Diseases of white blood cells (1 source) Leukocytosis; Translations: [Elevated white blood cell count, unspecified] Chronic Disorders of lipid metabolism (20 sources) Dyslipidemia; Translations: [Hyperlipidemia, unspecified] Onset: 01-22-2021 01-22-2021 Chronic Menopausal disorders (20 sources) Atrophic vaginitis; Translations: [Postmenopausal atrophic vaginitis] Onset: 11-03-2012 01-21-2021 Chronic Nutritional deficiencies (20 sources) Vitamin D deficiency; Translations: [Vitamin D deficiency, unspecified] Onset: 12-12-2009 01-21-2021 Chronic Osteoarthritis (20 sources) Arthritis; Translations: [Unspecified osteoarthritis, unspecified site] Onset: 03-26-2015 01-21-2021 Chronic Osteoporosis (20 sources) Osteoporosis; Translations: [Age-related osteoporosis without current pathological fracture] Onset: 12-10-2009 01-21-2021 Chronic Other connective tissue disease (3 sources) Ganglion cyst; Translations: [Ganglion, unspecified site] Episodic Other connective tissue disease (3 sources) Ganglion cyst of right hand; Translations: [Ganglion, right hand] Episodic Other hereditary and degenerative nervous system conditions (20 sources) Restless legs; Translations: [Restless legs syndrome] Onset: 03-25-2010 01-21-2021 Chronic Other hereditary and degenerative nervous system conditions (1 source) Restless legs syndrome; Translations: [Restless leg syndrome] Onset: 01-21-2021 Chronic Other inflammatory condition of skin (20 sources) Psoriasis of nail; Translations: [Psoriasis, unspecified] Onset: 03-26-2015 01-21-2021 Chronic Other inflammatory condition of skin (1 source) Seborrheic dermatitis of scalp; Translations: [Seborrheic dermatitis, unspecified] Episodic Other lower respiratory disease (1 source) Dyspnea; Translations: [Dyspnea, unspecified] 03-26-2023 Episodic Other nutritional; endocrine; and metabolic disorders (18 sources) Hypercalcemia; Translations: [Hypercalcemia] Onset: 08-14-2021 08-14-2021 Chronic Other upper respiratory disease (2 sources) Deviated nasal septum; Translations: [Deviated nasal septum] 04-13-2023 Episodic Other upper respiratory infections (5 sources) Viral sinusitis; Translations: [Chronic sinusitis, unspecified] Onset: 02-17-2023 Chronic Other upper respiratory infections (1 source) Acute upper respiratory infection; Translations: [Acute upper respiratory infection, unspecified] Episodic Otitis media and related conditions (1 source) Acute left otitis media; Translations: [Otitis media, unspecified, left ear] Episodic Spondylosis; intervertebral disc disorders; other back problems (20 sources) Prolapsed lumbar intervertebral disc; Translations: [Other intervertebral disc displacement, lumbar region] Onset: 12-16-2010 04-12-2019 Chronic Past or Other Problems Problem Classification Problem Date Documented Da te Episodic/Chronic Administrative/social admission (18 sources) Advance directive discussed with patient; Translations: [Other specified counseling] Onset: 08-15-2022 Episodic Immunizations and screening for infectious disease (2 sources) Needs influenza immunization; Translations: [Encounter for immunization] Onset: 08-15-2022 05-27-2023 Episodic Other aftercare (1 source) Surgical follow-up; Translations: [Encounter for other specified surgical aftercare] Onset: 05-26-2019 05-26-2019 Episodic Other aftercare (20 sources) Patient encounter status; Translations: [Other detention (current) drug therapy] Onset: 01-21-2021 01-21-2021 Episodic Other aftercare (1 source) Other detention (current) drug therapy; Translations: [Medication management] Onset: 01-21-2021 Episodic Other bone disease and musculoskeletal deformities (1 source) Osteopenia; Translations: [Other specified disorders of bone density and structure, multiple sites] Onset: 10-28-2016 10-28-2016 Episodic Other bone disease and musculoskeletal deformities (1 source) Disorder of bone; Translations: [Disorder of bone density and structure, unspecified] Onset: 10-02-2016 10-02-2016 Episodic Other bone disease and musculoskeletal deformities (2 sources) Other specified disorders of bone density and structure, other site; Translations: [Swelling, mass, or lump in head and neck] Onset: 02-17-2023 02-17-2023 Episodic Other connective tissue disease (20 sources) Fibromyalgia; Translations: [Fibromyalgia] Onset: 08-23-2015 01-21-2021 Episodic Other connective tissue disease (1 source) Fibromyalgia; Translations: [Fibromyalgia] Onset: 01-21-2021 Episodic Other lower respiratory disease (1 source) Dyspnea, unspecified; Translations: [Dyspnea, unspecified type] Onset: 04-13-2023 Episodic Other nervous system disorders (18 sources) Numbness of face; Translations: [Anesthesia of skin] Onset: 08-14-2021 08-14-2021 Episodic Residual codes; unclassified (20 sources) Insomnia; Translations: [Insomnia, unspecified] Onset: 03-26-2015 01-21-2021 Episodic Residual codes; unclassified (17 sources) Active living will ; Translations: [Other specified health status] Onset: 08-15-2022 08-15-2022 Episodic Spondylosis; intervertebral disc disorders; other back problems (20 sources) Spinal stenosis of lumbar region; Translations: [Spinal stenosis, lumbar region] Onset: 10-02-2016 10-02-2016 Episodic Unclassified (1 source) Problem Results Test Name Value Interpretation Reference Range Facil ity Vital Signs Date Time Vital Sign Value Performing Clinician Facility 05-27-2023 09:54-0400 Body weight 59.42 kg Marilou Narvaez PA-C Work Phone: [facility] 05-27-2023 09:54-0400 Diastolic blood pressure 80 mm[Hg] Marilou Layla PA-C Work Phone: [facility] 05-27-2023 09:54-0400 Heart rate 74 /min Mariolu Layla PA-C Work Phone: [facility] 05-27-2023 09:54-0400 Respiratory rate 15 /min Marilou Layla PA-C Work Phone: [facility] 05-27-2023 09:54-0400 SaO2% (BldA) [Mass fraction] 100 % Marilou Layla PA-C Work Phone: [facility] 05-27-2023 09:54-0400 Systolic blood pressure 124 mm[Hg] Marilou Layla PA-C Work Phone: [facility] 04-13-2023 08:35-0400 Body height 162.6 cm Alona Bauer MD Work Phone: [facility] 04-13-2023 08:35-0400 Body weight 59.88 kg Alona Bauer MD Work Phone: [facility] 04-13-2023 08:35-0400 Diastolic blood pressure 68 mm[Hg] Alona Bauer MD Work Phone: [facility] 04-13-2023 08:35-0400 Heart rate 80 /min Alona Bauer MD Work Phone: [facility] 04-13-2023 08:35-0400 Respiratory rate 14 /min Alona Bauer MD Work Phone: [facility] 04-13-2023 08:35-0400 SaO2% (BldA) [Mass fraction] 97 % Alona Bauer MD Work Phone: [facility] 04-13-2023 08:35-0400 Systolic blood pressure 112 mm[Hg] Alona Bauer MD Work Phone: [facility] 02-21-2023 13:03-0400 Body temperature 98.2 [degF] Josephine Athy PA-C Work Phone: [facility] 02-21-2023 13:03-0400 Body weight 59.88 kg Josephine Athy PA-C Work Phone: [facility] 02-21-2023 13:03-0400 Diastolic blood pressure 80 mm[Hg] Josephine Athy PA-C Work Phone: [facility] 02-21-2023 13:03-0400 Heart rate 79 /min Josephine Athy PA-C Work Phone: [facility] 02-21-2023 13:03-0400 Respiratory rate 18 /min Josephine Athy PA-C Work Phone: [facility] 02-21-2023 13:03-0400 SaO2% (BldA) [Mass fraction] 97 % Josephine Athy PA-C Work Phone: [facility] 02-21-2023 13:03-0400 Systolic blood pressure 118 mm[Hg] Josephine Athy PA-C Work Phone: [facility] 12-31-2022 13:28-0400 Body temperature 99.19 [degF] Nadia Reddy GLASS CALIBRATOR.RESIDENTIAL SOLAR SALES CONSULTANT Work Phone: [facility] 12-31-2022 13:28-0400 Body weight 58.15 kg Nadia Reddy GLASS CALIBRATOR.RESIDENTIAL SOLAR SALES CONSULTANT Work Phone: [facility] 12-31-2022 13:28-0400 Diastolic blood pressure 80 mm[Hg] Nadia Reddy GLASS CALIBRATOR.RESIDENTIAL SOLAR SALES CONSULTANT Work Phone: [facility] 12-31-2022 13:28-0400 Heart rate 88 /min Nadia Reddy GLASS CALIBRATOR.RESIDENTIAL SOLAR SALES CONSULTANT Work Phone: [facility] 12-31-2022 13:28-0400 Respiratory rate 21 /min Nadia Reddy GLASS CALIBRATOR.RESIDENTIAL SOLAR SALES CONSULTANT Work Phone: [facility] 12-31-2022 13:28-0400 SaO2% (BldA) [Mass fraction] 97 % Nadia Reddy GLASS CALIBRATOR.RESIDENTIAL SOLAR SALES CONSULTANT Work Phone: [facility] 12-31-2022 13:28-0400 Systolic blood pressure 104 mm[Hg] Nadia Reddy GLASS CALIBRATOR.RESIDENTIAL SOLAR SALES CONSULTANT Work Phone: [facility] 08-15-2022 08:00-0500 Body height 163.2 cm Joan Hein MD Work Phone: [facility] 08-15-2022 08:00-0500 Body weight 60.33 kg Joan Hein MD Work Phone: [facility] 08-15-2022 08:00-0500 Diastolic blood pressure 70 mm[Hg] Joan Hein MD Work Phone: [facility] 08-15-2022 08:00-0500 Heart rate 83 /min Joan Hein MD Work Phone: [facility] 08-15-2022 08:00-0500 Respiratory rate 14 /min Joan Hein MD Work Phone: [facility] 08-15-2022 08:00-0500 Systolic blood pressure 110 mm[Hg] Joan Hein MD Work Phone: [facility] 01-28-2022 07:07-0400 Body temperature 97.3 [degF] Chrystal Mariee PA-C Work Phone: [facility] 01-28-2022 07:07-0400 Body weight 60.33 kg Chrystal Mariee PA-C Work Phone: [facility] 01-28-2022 07:07-0400 Diastolic blood pressure 70 mm[Hg] Chrystal Mariee PA-C Work Phone: [facility] 01-28-2022 07:07-0400 Heart rate 68 /min Chrystal Mariee PA-C Work Phone: [facility] 01-28-2022 07:07-0400 Respiratory rate 16 /min Chrystal Mariee PA-C Work Phone: [facility] 01-28-2022 07:07-0400 Systolic blood pressure 106 mm[Hg] Chrystal Mariee PA-C Work Phone: [facility] 12-17-2021 08:07-0400 Body temperature 97 [degF] Chrystal Mariee PA-C Work Phone: [facility] 12-17-2021 08:07-0400 Body weight 59.88 kg Chrystal Mariee PA-C Work Phone: [facility] 12-17-2021 08:07-0400 Diastolic blood pressure 70 mm[Hg] Chrystal Mariee PA-C Work Phone: [facility] 12-17-2021 08:07-0400 Heart rate 84 /min Chrystal Mariee PA-C Work Phone: [facility] 12-17-2021 08:07-0400 Respiratory rate 16 /min Chrystal Mariee PA-C Work Phone: [facility] 12-17-2021 08:07-0400 Systolic blood pressure 100 mm[Hg] Chrystal Mariee PA-C Work Phone: [facility] NEGATED: Highlighted [id number] 08:27-0400 Body height 165.1 cm Susie Sutter AT [facility] Work Phone: NEGATED: Highlighted [id number] 08:27-0400 Body height 165 cm Susie Sutter AT [facility] Work Phone: NEGATED: Highlighted [id number] 08:27-0400 Body mass index (BMI) [Ratio] 21.71 kg/m2 Susie Sutter AT [facility] Work Phone: NEGATED: Highlighted [id number] 08:27-0400 Body weight 58.97 kg Susie Sutter AT [facility] Work Phone: NEGATED: Highlighted [id number] 08:27-0400 Body weight 59 kg Susie Sutter AT [facility] Work Phone: Encounters Encounter Date Encounter Type Care Provider Facility Start: 05-27-2023 End: 05-28-2023 ambulatory ALONA BAUER Facility:[facility] Start: 05-27-2023 End: 05-27-2023 Office outpatient visit 25 minutes Marilou Narvaez PA-C Work Phone: Pulmonary Medicine Procedures Date Procedure Procedure Detail Performing Clinician Start: 05-27-2023 INFLUENZA VACCINE, P RSV FREE, AGE 65+ YR, HIGH DOSE, QUADRIVALENT (FLUZONE HIGH-DOSE) Marilou Narvaez PA-C Work Phone: Start: 02-17-2023 Ct maxillofacial w/o contrast material Chrystal Mariee PA-C Work Phone: Start: 02-12-2023 Lipid 1996 panel - S kelly or Plasma Alona Bauer MD Work Phone: Start: 03-10-2022 Dxa bone density stephan dy 1/> sites axial skel Chrystal Mariee PA-C Work Phone: Start: 01-03-2008 Colonoscopy Ryann ugarte NEGATED: Highlighted rowStart: 10-29-2021 End: 10-29-2021 Documentation of current medications Susie Limon AT Plan of Treatment Date Care Activity Detail Author Start: 02-09-2029 Urine microalbumin profile [facility] Start: 02-13-2028 Lipid 1996 panel - S kelly or Plasma Lipid Screening [facility] Start: 02-13-2028 LIPID SCREEN LIPID SCREEN [facility] Start: 08-15-2027 LIPID SCREEN LIPID SCREEN [facility] Start: 02-24-2027 LIPID SCREEN LIPID SCREEN [facility] Start: 08-15-2026 LIPID SCREEN LIPID SCREEN [facility] Start: 02-12-2026 DIABETES SCREEN DIABETES SCREEN [facility] Start: 02-12-2026 Diabetes Screening Diabetes Screenin g [facility] Start: 08-15-2025 DIABETES SCREEN DIABETES SCREEN [facility] Start: 02-24-2025 DIABETES SCREEN DIABETES SCREEN [facility] Start: 02-13-2024 ANNUAL PCP TEAM PIPE FITTER GAS PIPE LIBRADO DISEASE VISIT ANNUAL PCP TEAM CHRONIC DISEASE VISIT [facility] Start: 01-22-2024 DIABETES SCREEN DIABETES SCREEN [facility] Start: 08-15-2023 ANNUAL PCP TEAM PIPE FITTER GAS PIPE LIBRADO DISEASE VISIT ANNUAL PCP TEAM CHRONIC DISEASE VISIT [facility] Start: 08-15-2023 COVID-19 VACCINE (5 - Booster for Moderna series) COVID-19 VACCINE (5 - Booster for Moderna series) [facility] Immunizations Immunization Date Immunization Notes Care Provider Fa cass 05-27-2023 influenza (HD-IIV4) vaccine, age 65+ yr, high dose, quadrivalent, PF (FLUZONE HIGH-DOSE) Marilou Narvaez PA-C Work Phone: [facility] 04-22-2022 influenza (aIIV4) vaccine, age 65+ yr, quadrivalent, PF (FLUAD QUADRIVALENT) Joan Hein MD Work Phone: [facility] 04-22-2022 zoster vaccine recombinant Joan Hein MD Work Phone: [facility] 04-22-2022 influenza virus vacc ine, unspecified formulation Alona Bauer MD Work Phone: [facility] 11-04-2021 COVID-19 vaccine, booster dose (MODERNA) Chrystal Mariee PA-C Work Phone: [facility] 08-14-2021 pneumococcal polysaccharide vaccine, 23 valent Ry[facility] 05-14-2021 influenza (aIIV4) vaccine, age 65+ yr, quadrivalent, PF (FLUAD QUADRIVALENT) Chrystal Mariee PA-C Work Phone: [facility] 05-14-2021 influenza, high dose seasonal, preservative-free Ry[facility] Work Phone: 01-22-2021 zoster vaccine recombinant Chrystal Mariee PA-C Work Phone: [facility] 11-15-2020 COVID-19 vaccine, fu ll dose (MODERNA) Ryann [facility] Work Phone: 10-11-2020 COVID-19 vaccine, fu ll dose (MODERNA) Ryann [facility] Work Phone: 04-19-2020 influenza, seasonal, injectable [facility] 05-24-2019 influenza, high dose seasonal, preservative-free [facility] 02-09-2019 pneumococcal conjuga te vaccine, [address] [facility] 02-09-2019 tetanus toxoid, redu ira diphtheria toxoid, and acellular pertussis vaccine, adsorbed [facility] 04-08-2018 influenza, high dose seasonal, preservative-free [facility] 05-19-2017 influenza, seasonal, injectable [facility] Work Phone: 05-15-2016 influenza, injectabl e, quadrivalent, contains preservative [facility] Work Phone: 05-15-2016 pneumococcal polysaccharide vaccine, [address] [facility] Work Phone: 04-30-2015 influenza, seasonal, injectable [facility] Work Phone: 05-24-2014 influenza, seasonal, injectable [facility] 06-22-2012 zoster vaccine, live [facility] Payers Date Payer Category Payer Medicare A[employer] MEDICARE A ETNA MEDICARE PPO [id number] 2021-Present [phone] [address] [place] [address] O [id number] 2021 Medicare AET[employer] MEDICARE A ETNA MEDICARE PPO [id number] 2021-Present [phone] [address] [place] [address] PP [id number] 2021 Medicare [id number] Social History Date Type Detail Facility Start: 10-30-2021 End: 10-30-2021 Assertion Unknown if ever smoked [facility] Work Phone: Start: 02-18-2011 Tobacco smoking status NHIS Never smoked tobacco [facility] Start: 08-14-2021 End: 02-12-2023 Alcohol intake Current drinker of alcohol (finding) [facility] Start: 08-12-2021 End: 08-08-2022 History SDOH Alcohol Frequency 3 [facility] Start: 08-12-2021 End: 08-08-2022 History SDOH Alcohol Std Drinks 1 [facility] Start: 08-12-2021 End: 08-08-2022 History SDOH Social Connections Get Together 2 [facility] Start: 08-12-2021 End: 08-08-2022 History SDOH Physical Activity DPW 5 [facility] Start: 08-12-2021 History SDOH Physical Activity MPS 4 [facility] Start: 04-03-2020 Education 18 [facility] Start: 1950 Sex Assigned At Female [facility] Start: 12-07-2021 End: 04-21-2022 Exposure to SARS-CoV-2 (event) Not sure [facility] Start: 01-04-2022 End: 01-14-2022 Exposure to SARS-CoV-2 (event) Unable to assess [facility] Start: 02-18-2011 Tobacco use and exposure Smokeless tobacco non-user [facility] Start: 08-08-2022 End: 01-29-2023 History of Social function [facility] Start: 08-08-2022 End: 01-29-2023 Social connection and isolation panel [facility] Attends [employer] Not on file [facility] Do you belong to any clubs or organizations such as judaism groups, unions, fraternal or athletic groups, or school groups? Yes [facility] Are you now , , , , never or living with a partner? [facility] How often to you hav e a drink containing alcohol? 2-4 times a month [facility] How often do you hav e 6 or more drinks on 1 occasion? Never [facility] Do you feel stress - tense, restless, nervous, or anxious, or unable to sleep at night because your mind is troubled all the time - these days [OSQ] Not at all [facility] (I/We) worried wheth er (my/our) food would run out before (I/we) got money to buy more. Never true [facility] In the past 12 month s, was there a time when you were not able to pay the mortgage or rent on time? No [facility] Start: 2021 Gender identity Identifies as female gender (finding) [facility] Start: 2021 Sexual orientation Heterosexual (finding) [facility] Clinical Notes 01-03-2008 to 07-02-2023 Marilou Narvaez PA-C - 05/27/2023 10:00 AM EDTTelephone Encounter - Cassia Santos LPN - 04/14/2023 11:11 AM Alona Fry MD - 04/13/2023 8:45 AM EDTPatient Instructions Note Date & Type Note Facility 07-02-2023 Note HNO ID: [id number] Author: Manny Holm LPN Service: ? Author Type: ? Type: Progress Notes Filed: 07/02/2023 2:06 PM Note Text: Scan on 07/02/2023 12:48 PM by Provider, PHUONG Juarez: Consultation - PT/OT/Speech [facility] 05-27-2023 Note HNO ID: [id number] Author: Marilou Narvaez PA-C Service: ? Author Type: Physician Meter Technician Type: Progress Notes Filed: 05/27/2023 11:37 AM Note Text: Patient: Lupis Ramirez PCP: Joan Hein MD CC: follow up HPI: Lupis Ramirez 73 year old female never smoker with PMH significant for allergic rhinitis, asthma, fibromyalgia, and osteoporosis. 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 Initially evaluated by Dr. Bauer on 04/13 at which time she was started on ICS with as needed Albuterol. She was also instructed to continue Singulair. Today, patient states since starting ICS cough has subsided. No wheezing. She does note a whistling sound through her nose. She has a history of a deviated septum that was repaired years ago . Is planning on following up with ENT, however, she has been out of town on a mission trip for the past 3 weeks. No SOB since starting Qvar. Is not requiring Albuterol. No nocturnal awakenings. PAST MEDICAL HISTORY Diagnosis Date Acute gastritis without mention of hemorrhage Advance directive discussed with patient 08/15/2022 Discussed 07/2022: Needs to bring in copies. Arthritis of both hips 08/23/2015 Benign neoplasm of colon Dyslipidemia 01/22/2021 Fibromyalgia 03/25/2010 Incidental lung nodule, less than or equal to 3mm 10/19/2014 F/u not needed Inflammatory arthritis 03/26/2015 Insomnia 03/26/2015 Intrinsic asthma 10/31/[address] 08/15/2022 DPA: Lainey () Lumbar degenerative disc disease 12/16/2010 Medicare annual wellness visit, subsequent 08/14/2021 Medicare Part B: Not able to find, Last done: 08/14/2021 Osteoporosis 12/10/2009 PMH - PAST MEDICAL HISTORY OF allergic rhinitis Postmenopausal atrophic vaginitis 11/03/2012 Psoriasis of nail 03/26/2015 Restless leg syndrome 03/25/2010 Spinal stenosis of lumbar region with radiculopathy 10/09/2016 Vitamin D deficiency 12/12/2009 Allergies: Clindamycin Rash Boniva [Ibandronate] GI Upset Comment:Increase in GERD Fosamax [Alendronat* GI Upset Comment:Increase heartburn/GI Mold Other: See Comments Comment:Nasal/sinus Penicillins Unknown Pollen Extracts Other: See Comments Comment:Nasal/sinus Sulfa (Sulfonamide * Unknown beclomethasone (QVAR REDIHALER) 80 mcg/actuation inhaler Inhale 2 Puffs as instructed twice daily. calcium carbonate (CALCIUM 300 ORAL) Take by mouth once daily. fluticasone (FLOVENT HFA) 44 mcg/actuation inhaler Inhale 2 Puffs as instructed twice daily. Shake well before use. Rinse mouth after use. albuterol HFA (VENTOLIN HFA) 90 mcg/actuation inhaler Inhale 2 Puffs as instructed every 4 hours as needed for wheezing/shortness of breath. fluticasone (FLONASE) 50 mcg/actuation nasal spray instill 2 sprays into each nostril once daily meloxicam (MOBIC) 7.5 mg tablet Take 1 tablet by mouth once daily. gabapentin (NEURONTIN) 300 mg capsule Take 1 capsule by mouth twice daily for 180 days. montelukast (SINGULAIR) 10 mg tablet Take 1 tablet by mouth daily at bedtime. denosumab (PROLIA) 60 mg/mL 1 milliliter subcutaneously every 6 months. MELATONIN ORAL Take by mouth as directed. VITAMIN B COMPLEX ORAL Take by mouth. L.ACID/L.CASEI/B.BIF/B.ROBIN/FOS (PROBIOTIC BLEND ORAL) Take by mouth. folic acid 800 mcg ORAL Tab Take one(1) tablet daily. DAILY MULTIVITAMIN TAB Take one(1) tablet daily. Social History Tobacco Use Smoking status: Never Smokeless tobacco: Never Vaping Use Vaping Use: Never used Substance Use Topics Alcohol use: Yes Comment: occasionally Drug use: No Family History Problem Relation Age of Onset Hypertension Mother Lipids Mother Skin Cancer Mother chemo and radiation Heart Father irregular heart beat. Asthma No Family History PAST SURGICAL HISTORY Procedure Laterality Date COLSC FLX W/RMVL OF TUMOR POLYP LESION SNARE TQ 01/03/2008 Repeat in EGD TRANSORAL BIOPSY SINGLE/MULTIPLE 01/03/2008 EXC LESION TDN SHTH/JT CAPSL HAND/FNGR Right 04/10/2022 Excision ganglion cyst right 5th finger PAST SURGICAL HISTORY OF 07/27/1979 deviated septum I reviewed the past medical history, family history, social history and surgical history with changes noted above and updated in EMR. IMMUNIZATIONS Prevnar 01/2019 Pneumovax 07/2021 Influenza - 05/27/2023 COVID-19 - most recent 11/04/2021 ROS: CONSTITUTIONAL: No fevers, chills, nightsweats, unintended weight loss HEENT: Denies nasal congestion/sinus symptoms, current allergy problems. EYES: No diplopia or blurry vision, itchy eyes CARDIOVASCULAR: No chest pain, dyspnea, palpitations, orthopnea, PND, edema. PULM: See HPI GI: No dysphagia/odynophagia, problematic reflux, MUSC-SKEL: No joint pain, swelling, or erythema. INTEGUMENTARY: No new skin changes, rashes, eczema PHYSICAL EXAMINATION: BP 124/80 Pulse 74 Resp 15 (more content not included)... [facility] 05-27-2023 History of Presen t illness Narrative Images from the original note were not included. Patient: Lupis Ramirez PCP: Joan Hein MD CC: follow up HPI: Lupis Ramirez 73 year old female never smoker with PMH significant for allergic rhinitis, asthma, fibromyalgia, and osteoporosis. 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 Initially evaluated by Dr. Bauer on 04/13 at which time she was started on ICS with as needed Albuterol. She was also instructed to continue Singulair. Today, patient states since starting ICS cough has subsided. No wheezing. She does note a whistling sound through her nose. She has a history of a deviated septum that was repaired years ago . Is planning on following up with ENT, however, she has been out of town on a mission trip for the past 3 weeks. No SOB since starting Qvar. Is not requiring Albuterol. No nocturnal awakenings. PAST MEDICAL HISTORY Diagnosis Date Acute gastritis without mention of hemorrhage Advance directive discussed with patient 08/15/2022 Discussed 07/2022: Needs to bring in copies. Arthritis of both hips 08/23/2015 Benign neoplasm of colon Dyslipidemia 01/22/2021 Fibromyalgia 03/25/2010 Incidental lung nodule, less than or equal to 3mm 10/19/2014 F/u not needed Inflammatory arthritis 03/26/2015 Insomnia 03/26/2015 Intrinsic asthma 10/31/[address] 08/15/2022 DPA: Lainey () Lumbar degenerative disc disease 12/16/2010 Medicare annual wellness visit, subsequent 08/14/2021 Medicare Part B: Not able to find, Last done: 08/14/2021 Osteoporosis 12/10/2009 PMH - PAST MEDICAL HISTORY OF allergic rhinitis Postmenopausal atrophic vaginitis 11/03/2012 Psoriasis of nail 03/26/2015 Restless leg syndrome 03/25/2010 Spinal stenosis of lumbar region with radiculopathy 10/09/2016 Vitamin D deficiency 12/12/2009 Allergies: Clindamycin Rash Boniva [Ibandronate] GI Upset Comment:Increase in GERD Fosamax [Alendronat* GI Upset Comment:Increase heartburn/GI Mold Other: See Comments Comment:Nasal/sinus Penicillins Unknown Pollen Extracts Other: See Comments Comment:Nasal/sinus Sulfa (Sulfonamide * Unknown beclomethasone (QVAR REDIHALER) 80 mcg/actuation inhaler Inhale 2 Puffs as instructed twice daily. calcium carbonate (CALCIUM 300 ORAL) Take by mouth once daily. fluticasone (FLOVENT HFA) 44 mcg/actuation inhaler Inhale 2 Puffs as instructed twice daily. Shake well before use. Rinse mouth after use. albuterol HFA (VENTOLIN HFA) 90 mcg/actuation inhaler Inhale 2 Puffs as instructed every 4 hours as needed for wheezing/shortness of breath. fluticasone (FLONASE) 50 mcg/actuation nasal spray instill 2 sprays into each nostril once daily meloxicam (MOBIC) 7.5 mg tablet Take 1 tablet by mouth once daily. gabapentin (NEURONTIN) 300 mg capsule Take 1 capsule by mouth twice daily for 180 days. montelukast (SINGULAIR) 10 mg tablet Take 1 tablet by mouth daily at bedtime. denosumab (PROLIA) 60 mg/mL 1 milliliter subcutaneously every 6 months. MELATONIN ORAL Take by mouth as directed. VITAMIN B COMPLEX ORAL Take by mouth. L.ACID/L.CASEI/B.BIF/B.ROBIN/FOS (PROBIOTIC BLEND ORAL) Take by mouth. folic acid 800 mcg ORAL Tab Take one(1) tablet daily. DAILY MULTIVITAMIN TAB Take one(1) tablet daily. Social History Tobacco Use Smoking status: Never Smokeless tobacco: Never Vaping Use Vaping Use: Never used Substance Use Topics Alcohol use: Yes Comment: occasionally Drug use: No Family History Problem Relation Age of Onset Hypertension Mother Lipids Mother Skin Cancer Mother chemo and radiation Heart Father irregular heart beat. Asthma No Family History PAST SURGICAL HISTORY Procedure Laterality Date COLSC FLX W/RMVL OF TUMOR POLYP LESION SNARE TQ 01/03/2008 Repeat in EGD TRANSORAL BIOPSY SINGLE/MULTIPLE 01/03/2008 EXC LESION TDN SHTH/JT CAPSL HAND/FNGR Right 04/10/2022 Excision ganglion cyst right 5th finger PAST SURGICAL HISTORY OF 07/27/1979 deviated septum I reviewed the past medical history, family history, social history and surgical history with changes noted above and updated in EMR. IMMUNIZATIONS Prevnar 01/2019 Pneumovax - 07/2021 Influenza - 05/27/2023 COVID-19 - most recent 11/04/2021 ROS: CONSTITUTIONAL: No fevers, chills, nightsweats, unintended weight loss HEENT: Denies nasal congestion/sinus symptoms, current allergy problems. EYES: No diplopia or blurry vision, itchy eyes CARDIOVASCULAR: No chest pain, dyspnea, palpitations, orthopnea, PND, edema. PULM: See HPI GI: No dysphagia/odynophagia, problematic reflux, MUSC-SKEL: No joint pain, swelling, or erythema. INTEGUMENTARY: No new skin changes, rashes, eczema PHYSICAL EXAMINATION: BP 124/80 Pulse 74 Resp 15 Wt 59.4 kg (131 lb) SpO2 100% BMI 22.49 kg/m Gen: No acute distress. Cooperative with examination. HEENT: Normocephalic. Sclera, conjunctiva clear. Oral hygeine and dentition good. No thrush. Resp: No stridor, accessory respiratory muscle use, supra-sternal or intercostal retractions. No wheezes, crackles. CV: Regular rythm. Heart tones normal. Radial pulses normal. MSK: No kyphoscoliosis. Ext: Warm and well perfused. No clubbing, cyanosis, edema. Skin: No rash, ecchymoses Neuro: Mental status normal. Affect normal. No tremor. DATA: PFT, 04/13/2023: Pulmonary function tests show no obstruction PFT 2020: Imaging / Diagnostic Studies: DATE OF EXAM: Feb 17 2023 10:34AM [facility] 0488 - CT SINUS WO IVCON / IMPRESSION: Clear paranasal sinuses. No acute process. DATE OF EXAM: Sep 04 2014 9:00AM [facility] 0347 - CT CHEST W CONTRAST / Findings: CT CHEST FINDINGS: There is some parenchymal scarring or atelectasis in the lingula and in the RIGHT middle lobe which may account for the density noted on previous chest x-ray. There is apical pleural parenchymal scarring bilaterally . There is a 2 mm noncalcified nodular density RIGHT midlung field image 80. No hilar or mediastinal adenopathy is seen. ASSESSMENT/PLAN: 1. Mild persistent asthma without complication - ICD9: 493.90, ICD10: J45.30 (primary diagnosis) Continue Qvar at this time. Rinse mouth after each use to help prevent oral thrush. Albuterol HFA inhaler, 2 inhalations 10-15 minutes prior to activities associated with shortness of breath, and as needed for rescue relief of shortness of breath or wheezing, up to 4 times daily. Continue Singulair. - QVAR REDIHALER 80 MCG/ACTUATION HFA BREATH ACTIVATED AEROSOL 2. Need for influenza vaccination - ICD9: V04.81, ICD10: Z23 - INFLUENZA VACCINE, PRSV FREE, AGE 65+ YR, HIGH DOSE, QUADRIVALENT (FLUZONE HIGH-DOSE) 3. Deviated nasal septum - ICD9: 470, ICD10: J34.2 Patient to follow up with ENT for further evaluation and treatment. 4. History of seasonal allergies - ICD9: V15.09, ICD10: Z88.9 See #1. Will get allergy labs done today. Portions of this documentation were copied and pasted from previous office visit notes in order to provide a cohesive continuity of the history. The note has been reviewed and edited and updated as necessary. Marilou Narvaez PA-C documented in this encounter [facility] 04-14-2023 Miscellaneous Notes Flovent non formulary on patient's insurance. Requesting Asmanex Twisthaler, Asmanex HFA, or Qvar Redihaler. Cassia Santos LPN documented in this encounter [facility] 04-13-2023 Note HNO ID: [id number] Author: Alona Bauer MD Service: ? Author Type: Physician Type: Progress Notes Filed: 04/13/2023 12:29 PM Note Text: . Respiratory [place] Note Patient name: Lupis Ramirez PCP: Joan Hein MD Referring Physician: Self CC: SOB HPI: Lupis Ramirez 73 year old female never smoker with PMH significant for allergic rhinitis, asthma, fibromyalgia, osteoporosis being seen as a self referral for SOB. Cough variant diagnosed by positive methacholine challenge testing in 2014 (24% drop in FEV1 at 10 mg/mL). Patient's symptoms at that time consisted of dry cough and difficulty taking a deep breath. She has been on albuterol as needed for many years. At her initial diagnosis, Qvar was recommended but she does not remember ever taking an inhaled corticosteroid. She also has a history of allergies with testing positive to grass, pollen, corn. She never required immunotherapy. Allergy treatment consists of Singulair and OTC antihistamines. Her concerns today are twofold including recrudescence of her shortness of breath/feeling that she cannot take a deep breath and whistling noise through her nose and difficulty breathing at night. Symptoms have been occurring over the last several months. Albuterol does help with her shortness of breath but is not long-lasting. She has noted poor vocal quality and phonation especially when trying to sing at judaism. She has raspy voice and difficulty speaking for prolonged periods. She does have some mild intermittent acid reflux symptoms. She has noted difficulty breathing through her nose with whistling noise at night and states that it makes it difficult for her to breathe. At times she has to sleep in her recliner. She has had a history of this deviated septum repair in her 20s. Recent sinus CT showed no sinusitis. Denies any allergy symptoms at this time. No significant cough, activity limiting shortness of breath, audible wheezing. DATA: PFT: Pulmonary function tests show no obstruction PFT 2020: Labs: Component Ref Range AND Units 1 mo ago (02/12/23) 2 yr ago (01/21/21) WBC 3.70 - 11.00 k/uL 6.17 7.20 RBC 3.90 - 5.20 m/uL 4.12 4.44 Hemoglobin 11.5 - 15.5 g/dL 12.2 13.3 Hematocrit 36.0 - 46.0 % 37.4 40.5 MCV 80.0 - 100.0 fL 90.8 91.2 MCH 26.0 - 34.0 pg 29.6 30.0 R MCHC 30.5 - 36.0 g/dL 32.6 32.8 RDW-CV 11.5 - 15.0 % 13.9 13.8 Platelet Count 150 - 400 k/uL 276 289 MPV 9.0 - 12.7 fL 9.7 9.7 Neutrophils % % 56.4 55.3 Abs Neut 1.45 - 7.50 k/uL 3.48 3.96 Lymphocytes % % 31.9 34.7 Abs Lymph 1.00 - 4.00 k/uL 1.97 2.50 Monocytes % % 8.1 6.3 Abs [place] <0.87 k/uL 0.50 0.45 Eosinophils % % 2.4 2.6 Abs Eosin <0.46 k/uL 0.15 0.19 Basophils % % 1.0 1.1 Abs Baso <0.11 k/uL 0.06 0.08 Immature Granulocytes % % 0.2 Abs Immature Gran <0.10 k/uL <0.03 NRBC /100 WBC 0.0 Absolute nRBC <0.01 k/uL <0.01 <0.01 Diff Type Auto Imaging / Diagnostic Studies: DATE OF EXAM: Feb 17 2023 10:34AM [facility] 0488 - CT SINUS WO IVCON / IMPRESSION: Clear paranasal sinuses. No acute process. DATE OF EXAM: Sep 04 2014 9:00AM [facility] 0347 - CT CHEST W CONTRAST / Findings: CT CHEST FINDINGS: There is some parenchymal scarring or atelectasis in the lingula and in the RIGHT middle lobe which may account for the density noted on previous chest x-ray. There is apical pleural parenchymal scarring bilaterally . There is a 2 mm noncalcified nodular density RIGHT midlung field image 80. No hilar or mediastinal adenopathy is seen. I personally reviewed the images of her past CT of the chest which is relatively unremarkable PAST MEDICAL HISTORY Diagnosis Date Acute gastritis without mention of hemorrhage Advance directive discussed with patient 08/15/2022 Discussed 07/2022: Needs to bring in copies. Arthritis of both hips 08/23/2015 Benign neoplasm of colon Dyslipidemia 01/22/2021 Fibromyalgia 03/25/2010 Incidental lung nodule, less than or equal to 3mm 10/19/2014 F/u not needed Inflammatory arthritis 03/26/2015 Insomnia 03/26/2015 Intrinsic asthma 10/31/[address] 08/15/2022 DPA: Lainey () Lumbar degenerative disc disease 12/16/2010 Medicare annual wellness visit, subsequent 08/14/2021 Medicare Part B: Not able to find, Last done: 08/14/2021 Osteoporosis 12/10/2009 PMH - PAST MEDICAL HISTORY OF allergic rhinitis Postmenopausal atrophic vaginitis 11/03/2012 Psoriasis of nail 03/26/2015 Restless leg syndrome 03/25/2010 Spinal stenosis of lumbar region with radiculopathy 10/09/2016 Vitamin D deficiency 12/12/2009 ALLERGIES Allergen Reactions Clindamycin Rash Boniva [Ibandronate] GI Upset Increase in GERD Fosamax [Alendronat* GI Upset Increase heartburn/GI Mold Other: See Comments Nasal/sinus Penicillins Unknown Pollen Extracts Other: See Comments Na (more content not included)... [facility] 04-13-2023 Note HNO ID: [id number] Author: Dinah Colón RPFT Service: ? Author Type: Respiratory Therapist Type: Progress Notes Filed: 04/13/2023 8:30 AM Note Text: PULM FUNCTION SMARTBLOCK: Provider: Alona Bauer MD Assisting Tech: Dinah Colón RPFT Spirometry: 1 [facility] 04-13-2023 History of Presen t illness Narrative Images from the original note were not included. . [facility] [place] Note Patient name: Lupis Ramirez PCP: Joan Hein MD Referring Physician: Self CC: SOB HPI: Lupis Ramirez 73 year old female never smoker with PMH significant for allergic rhinitis, asthma, fibromyalgia, osteoporosis being seen as a self referral for SOB. Cough variant diagnosed by positive methacholine challenge testing in 2014 (24% drop in FEV1 at 10 mg/mL). Patient's symptoms at that time consisted of dry cough and difficulty taking a deep breath. She has been on albuterol as needed for many years. At her initial diagnosis, Qvar was recommended but she does not remember ever taking an inhaled corticosteroid. She also has a history of allergies with testing positive to grass, pollen, corn. She never required immunotherapy. Allergy treatment consists of Singulair and OTC antihistamines. Her concerns today are twofold including recrudescence of her shortness of breath/feeling that she cannot take a deep breath and whistling noise through her nose and difficulty breathing at night. Symptoms have been occurring over the last several months. Albuterol does help with her shortness of breath but is not long-lasting. She has noted poor vocal quality and phonation especially when trying to sing at judaism. She has raspy voice and difficulty speaking for prolonged periods. She does have some mild intermittent acid reflux symptoms. She has noted difficulty breathing through her nose with whistling noise at night and states that it makes it difficult for her to breathe. At times she has to sleep in her recliner. She has had a history of this deviated septum repair in her 20s. Recent sinus CT showed no sinusitis. Denies any allergy symptoms at this time. No significant cough, activity limiting shortness of breath, audible wheezing. DATA: PFT: Pulmonary function tests show no obstruction PFT 2020: Labs: Component Ref Range & Units 1 mo ago (02/12/23) 2 yr ago (01/21/21) WBC 3.70 - 11.00 k/uL 6.17 7.20 RBC 3.90 - 5.20 m/uL 4.12 4.44 Hemoglobin 11.5 - 15.5 g/dL 12.2 13.3 Hematocrit 36.0 - 46.0 % 37.4 40.5 MCV 80.0 - 100.0 fL 90.8 91.2 MCH 26.0 - 34.0 pg 29.6 30.0 R MCHC 30.5 - 36.0 g/dL 32.6 32.8 RDW-CV 11.5 - 15.0 % 13.9 13.8 Platelet Count 150 - 400 k/uL 276 289 MPV 9.0 - 12.7 fL 9.7 9.7 Neutrophils % % 56.4 55.3 Abs Neut 1.45 - 7.50 k/uL 3.48 3.96 Lymphocytes % % 31.9 34.7 Abs Lymph 1.00 - 4.00 k/uL 1.97 2.50 Monocytes % % 8.1 6.3 Abs [place] <0.87 k/uL 0.50 0.45 Eosinophils % % 2.4 2.6 Abs Eosin <0.46 k/uL 0.15 0.19 Basophils % % 1.0 1.1 Abs Baso <0.11 k/uL 0.06 0.08 Immature Granulocytes % % 0.2 Abs Immature Gran <0.10 k/uL <0.03 NRBC /100 WBC 0.0 Absolute nRBC <0.01 k/uL <0.01 <0.01 Diff Type Auto Imaging / Diagnostic Studies: DATE OF EXAM: Feb 17 2023 10:34AM [facility] 0488 - CT SINUS WO IVCON / IMPRESSION: Clear paranasal sinuses. No acute process. DATE OF EXAM: Sep 04 2014 9:00AM [facility] 0347 - CT CHEST W CONTRAST / Findings: CT CHEST FINDINGS: There is some parenchymal scarring or atelectasis in the lingula and in the RIGHT middle lobe which may account for the density noted on previous chest x-ray. There is apical pleural parenchymal scarring bilaterally . There is a 2 mm noncalcified nodular density RIGHT midlung field image 80. No hilar or mediastinal adenopathy is seen. I personally reviewed the images of her past CT of the chest which is relatively unremarkable PAST MEDICAL HISTORY Diagnosis Date Acute gastritis without mention of hemorrhage Advance directive discussed with patient 08/15/2022 Discussed 07/2022: Needs to bring in copies. Arthritis of both hips 08/23/2015 Benign neoplasm of colon Dyslipidemia 01/22/2021 Fibromyalgia 03/25/2010 Incidental lung nodule, less than or equal to 3mm 10/19/2014 F/u not needed Inflammatory arthritis 03/26/2015 Insomnia 03/26/2015 Intrinsic asthma 10/31/[address] 08/15/2022 DPA: Lainey () Lumbar degenerative disc disease 12/16/2010 Medicare annual wellness visit, subsequent 08/14/2021 Medicare Part B: Not able to find, Last done: 08/14/2021 Osteoporosis 12/10/2009 PMH - PAST MEDICAL HISTORY OF allergic rhinitis Postmenopausal atrophic vaginitis 11/03/2012 Psoriasis of nail 03/26/2015 Restless leg syndrome 03/25/2010 Spinal stenosis of lumbar region with radiculopathy 10/09/2016 Vitamin D deficiency 12/12/2009 ALLERGIES Allergen Reactions Clindamycin Rash Boniva [Ibandronate] GI Upset Increase in GERD Fosamax [Alendronat* GI Upset Increase heartburn/GI Mold Other: See Comments Nasal/sinus Penicillins Unknown Pollen Extracts Other: See Comments Nasal/sinus Sulfa (Sulfonamide * Unknown calcium carbonate (CALCIUM 300 ORAL) Take by mouth once daily. fluticasone (FLONASE) 50 mcg/actuation nasal spray instill 2 sprays into each nostril once daily meloxicam (MOBIC) 7.5 mg tablet Take 1 tablet by mouth once daily. gabapentin (NEURONTIN) 300 mg capsule Take 1 capsule by mouth twice daily for 180 days. montelukast (SINGULAIR) 10 mg tablet Take 1 tablet by mouth daily at bedtime. denosumab (PROLIA) 60 mg/mL 1 milliliter subcutaneously every 6 months. MELATONIN ORAL Take by mouth as directed. VITAMIN B COMPLEX ORAL Take by mouth. L.ACID/L.CASEI/B.BIF/B.ROBIN/FOS (PROBIOTIC BLEND ORAL) Take by mouth. folic acid 800 mcg ORAL Tab Take one(1) tablet daily. DAILY MULTIVITAMIN TAB Take one(1) tablet daily. fluticasone (FLOVENT HFA) 44 mcg/actuation inhaler Inhale 2 Puffs as instructed twice daily. Shake well before use. Rinse mouth after use. albuterol HFA (VENTOLIN HFA) 90 mcg/actuation inhaler Inhale 2 Puffs as instructed every 4 hours as needed for wheezing/shortness of breath. 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 Asthma No Family History PAST SURGICAL HISTORY Procedure Laterality Date COLSC FLX W/RMVL OF TUMOR POLYP LESION SNARE TQ 01/03/2008 Repeat in EGD TRANSORAL BIOPSY SINGLE/MULTIPLE 01/03/2008 EXC LESION TDN SHTH/JT CAPSL HAND/FNGR Right 04/10/2022 Excision ganglion cyst right 5th finger PAST SURGICAL HISTORY OF 07/27/1979 deviated septum PMH, Social history, family history and surgical history reviewed and updated in EMR REVIEW OF SYSTEMS: CONSTITUTIONAL: No fevers, chills, nightsweats, unintended weight loss HEENT: Denies nasal congestion/sinus symptoms, current allergy problems. EYES: No diplopia or blurry vision, itchy eyes CARDIOVASCULAR: No chest pain, dyspnea, palpitations, orthopnea, PND, edema. PULM: No dyspnea, unexplained cough. GI: No dysphagia/odynophagia, problematic reflux, constipation, diarrhea, changes in stool habits : No urinary complaints, including dysuria, gross hematuria or pyuria. NEURO: No balance problems, peripheral weakness/paresthesias or numbness of concern. MUSC-SKEL: No joint pain, swelling, or erythema. PSY: No concerns regarding depression, anxiety INTEGUMENTARY: No new skin changes, rashes, eczema PHYSICAL EXAMINATION: BP 112/68 Pulse 80 Resp 14 Ht 5' 4 (1.63m) Wt 132 lb (59.9kg) SpO2 97% BMI 22.65 kg/(m^2). General Appearance: Age-appropriate female, NAD. Skin: Skin color, texture, turgor normal, no suspicious rashes or lesions. Head: Atraumatic, no lesions Eyes: Sclera, conjunctiva normal. Oropharynx: No oral lesions, no posterior pharyngeal cobblestoning. Neck: No JVD, no masses, no thyromegaly. Lungs: Not labored, normal to percussion, no wheezes or crackles. Heart: Regular rate and rhythm, no murmurs or gallops. Extremities: No edema or clubbing. Musculoskeletal: Osteoarthritis. Neurologic: Alert and oriented, no focal findings. Restless, shifting positions Lymph Nodes: No cervical lymphadenopathy and No supraclavicular lymphadenopathy. Assessment/Plan 1. Mild persistent asthma, uncomplicated -Started inhaled corticosteroid, Flovent 44 mcg -She will continue albuterol as needed -Update allergy panel 2. Deviated nasal septum -History of deviated septum with difficulty breathing through her nose -She had a previous ENT evaluation which she canceled. Reinstate consultation 3. History of seasonal allergies -See #1 -Continue Singulair, Flonase and antihistamines for now Alona Bauer MD Respiratory [place] documented in this encounter [facility] 03-19-2023 Miscellaneous Notes The following approved medication requests have been transmitted electronically. Requested Prescriptions Signed Prescriptions Disp Refills fluticasone (FLONASE) 50 mcg/actuation nasal spray 3 Each 3 Sig: instill 2 sprays into each nostril once daily Authorizing Provider: JOAN HEIN meloxicam (MOBIC) 7.5 mg tablet 90 tablet 1 Sig: Take 1 tablet by mouth once daily. Authorizing Provider: JOAN HEIN gabapentin (NEURONTIN) 300 mg capsule 180 capsule 1 Sig: Take 1 capsule by mouth twice daily for 180 days. Authorizing Provider: JOAN HEIN montelukast (SINGULAIR) 10 mg tablet 90 tablet 1 Sig: Take 1 tablet by mouth daily at bedtime. Authorizing Provider: JOAN HEIN denosumab (PROLIA) 60 mg/mL 1 mL 1 Si milliliter subcutaneously every 6 months. Authorizing Provider: JOAN HEIN MD Spoke with pt. She would like rx for Prolia to go to [facility]. Manny Holm LPN Find out from patient if she wants the [facility]? Pt is requesting to have refills sent to [facility]. Last refills went to [facility]. [facility] 02/12/23 NOV 08/27/23 Manny Holm LPN documented in this encounter [facility] 03-19-2023 Miscellaneous Notes This is being addressed in another encounter. Manny Holm LPN documented in this encounter [facility] 02-21-2023 Note HNO ID: [id number] Author: Josephine Iniguez PA-C Service: ? 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 Subjective Lupis Ramirez is a 73 year old female. HPI Presents with a rash on her face for 1 day. She had started clindamycin and has taken 2 days worth of doses. She was put on 300 mg 4 times a day. Started getting a tingling red rash on her face bilaterally. She denies any history of rosacea. No new soaps or detergents. No new lotions. She was put on clindamycin for possible tooth abscess. She had a CT scan for chronic sinusitis and right-sided sinus pain which showed periapical lucency around the maxillary molar. No other rash anywhere else. No trouble breathing or wheezing. No swelling of her mouth tongue or posterior oropharynx. Review of Systems Constitutional: Negative. HENT: Positive for facial swelling. Eyes: Negative. Respiratory: Negative. Cardiovascular: Negative. Gastrointestinal: Negative. Genitourinary: Negative. Musculoskeletal: Negative. Skin: Positive for rash. All other systems reviewed and are negative. PAST MEDICAL HISTORY Diagnosis Date Acute gastritis without mention of hemorrhage Advance directive discussed with patient 08/15/2022 Discussed 07/2022: Needs to bring in copies. Arthritis of both hips 08/23/2015 Benign neoplasm of colon Dyslipidemia 01/22/2021 Fibromyalgia 03/25/2010 Incidental lung nodule, less than or equal to 3mm 10/19/2014 F/u not needed Inflammatory arthritis 03/26/2015 Insomnia 03/26/2015 Intrinsic asthma 10/31/[address] 08/15/2022 DPA: Lainey () Lumbar degenerative disc disease 12/16/2010 Medicare annual wellness visit, subsequent 08/14/2021 Medicare Part B: Not able to find, Last done: 08/14/2021 Osteoporosis 12/10/2009 PMH - PAST MEDICAL HISTORY OF allergic rhinitis Postmenopausal atrophic vaginitis 11/03/2012 Psoriasis of nail 03/26/2015 Restless leg syndrome 03/25/2010 Spinal stenosis of lumbar region with radiculopathy 10/09/2016 Vitamin D deficiency 12/12/2009 Current Outpatient Medications Medication Sig Dispense Refill clindamycin (CLEOCIN) 300 mg capsule Take 1 capsule by mouth four times daily for 7 days. 28 capsule 0 fluticasone (FLONASE) 50 mcg/actuation nasal spray instill 2 sprays into each nostril once daily 48 g 11 meloxicam (MOBIC) 7.5 mg tablet Take 1 tablet by mouth once daily. 90 tablet 1 gabapentin (NEURONTIN) 300 mg capsule Take 1 capsule by mouth twice daily for 180 days. 180 capsule 1 montelukast (SINGULAIR) 10 mg tablet Take 1 tablet by mouth daily at bedtime. 90 tablet 1 denosumab (PROLIA) 60 mg/mL 1 milliliter subcutaneously every 6 months. 1 mL 1 MELATONIN ORAL Take by mouth as directed. albuterol HFA (VENTOLIN HFA) 90 mcg/actuation inhaler Inhale 2 Puffs as instructed every 4 hours as needed for Wheezing/Shortness of Breath. 1 Inhaler 5 VITAMIN B COMPLEX ORAL Take by mouth. L.ACID/L.CASEI/B.BIF/B.ROBIN/FOS (PROBIOTIC BLEND ORAL) Take by mouth. folic acid 800 mcg ORAL Tab Take one(1) tablet daily. 0 DAILY MULTIVITAMIN TAB Take one(1) tablet daily. 0 cephALEXin (KEFLEX) 500 mg capsule Take 1 capsule by mouth four times daily for 7 days. 28 capsule 0 No current facility-administered medications for this visit. PAST SURGICAL HISTORY Procedure Laterality Date COLSC FLX W/RMVL OF TUMOR POLYP LESION SNARE TQ 01/03/2008 Repeat in EGD TRANSORAL BIOPSY SINGLE/MULTIPLE 01/03/2008 EXC LESION TDN SHTH/JT CAPSL HAND/FNGR Right 04/10/2022 Excision ganglion cyst right 5th finger PAST SURGICAL HISTORY OF 07/27/1979 deviated septum FAMILY HISTORY Problem Relation Age of Onset Hypertension Mother Lipids Mother Heart Father irregular heart beat. Social History Tobacco Use Smoking status: Never Smokeless tobacco: Never Vaping Use Vaping Use: Never used Substance Use Topics Alcohol use: Yes Comment: occasionally Drug use: No Objective BP 118/80 Pulse 79 Temp 36.8 ?C (98.2 ?F) (Tympanic) Resp 18 Wt 59.9 kg (132 lb) SpO2 97% BMI 22.48 kg/m? Physical Exam Vitals reviewed. Constitutional: Appearance: Normal appearance. HENT: Head: Atraumatic. Comments: Patient has erythematous slightly raised rash to the bilateral cheek areas of her face. No vesicles. No petechia or purpura. Blanches. Skin: General: Skin is warm and dry. Findings: Rash present. Neurological: Mental Status: She is alert. Assessment and Plan ASSESSMENT/PLAN: 1. Allergic reaction, initial encounter - ICD9: 995.3, ICD10: T78.40XA Patient having allergic reaction to the clindamycin. No signs of anaphylaxis. I did add this to her list of allergies. I did review the CT scan of her sinuses which did show the periapical lucency on the right maxillary molar so I will start her on keflex. She has been on cephalosporins previously. (more content not included)... [facility] 02-21-2023 History of Presen t illness Narrative Images from the original note were not included. This note was created using [employer] Foundry[employer]. Subjective Lupis Ramirez is a 73 year old female. HPI Presents with a rash on her face for 1 day. She had started clindamycin and has taken 2 days worth of doses. She was put on 300 mg 4 times a day. Started getting a tingling red rash on her face bilaterally. She denies any history of rosacea. No new soaps or detergents. No new lotions. She was put on clindamycin for possible tooth abscess. She had a CT scan for chronic sinusitis and right-sided sinus pain which showed periapical lucency around the maxillary molar. No other rash anywhere else. No trouble breathing or wheezing. No swelling of her mouth tongue or posterior oropharynx. Review of Systems Constitutional: Negative. HENT: Positive for facial swelling. Eyes: Negative. Respiratory: Negative. Cardiovascular: Negative. Gastrointestinal: Negative. Genitourinary: Negative. Musculoskeletal: Negative. Skin: Positive for rash. All other systems reviewed and are negative. PAST MEDICAL HISTORY Diagnosis Date Acute gastritis without mention of hemorrhage Advance directive discussed with patient 08/15/2022 Discussed 07/2022: Needs to bring in copies. Arthritis of both hips 08/23/2015 Benign neoplasm of colon Dyslipidemia 01/22/2021 Fibromyalgia 03/25/2010 Incidental lung nodule, less than or equal to 3mm 10/19/2014 F/u not needed Inflammatory arthritis 03/26/2015 Insomnia 03/26/2015 Intrinsic asthma 10/31/[address] 08/15/2022 DPA: Lainey () Lumbar degenerative disc disease 12/16/2010 Medicare annual wellness visit, subsequent 08/14/2021 Medicare Part B: Not able to find, Last done: 08/14/2021 Osteoporosis 12/10/2009 PMH - PAST MEDICAL HISTORY OF allergic rhinitis Postmenopausal atrophic vaginitis 11/03/2012 Psoriasis of nail 03/26/2015 Restless leg syndrome 03/25/2010 Spinal stenosis of lumbar region with radiculopathy 10/09/2016 Vitamin D deficiency 12/12/2009 Current Outpatient Medications Medication Sig Dispense Refill clindamycin (CLEOCIN) 300 mg capsule Take 1 capsule by mouth four times daily for 7 days. 28 capsule 0 fluticasone (FLONASE) 50 mcg/actuation nasal spray instill 2 sprays into each nostril once daily 48 g 11 meloxicam (MOBIC) 7.5 mg tablet Take 1 tablet by mouth once daily. 90 tablet 1 gabapentin (NEURONTIN) 300 mg capsule Take 1 capsule by mouth twice daily for 180 days. 180 capsule 1 montelukast (SINGULAIR) 10 mg tablet Take 1 tablet by mouth daily at bedtime. 90 tablet 1 denosumab (PROLIA) 60 mg/mL 1 milliliter subcutaneously every 6 months. 1 mL 1 MELATONIN ORAL Take by mouth as directed. albuterol HFA (VENTOLIN HFA) 90 mcg/actuation inhaler Inhale 2 Puffs as instructed every 4 hours as needed for Wheezing/Shortness of Breath. 1 Inhaler 5 VITAMIN B COMPLEX ORAL Take by mouth. L.ACID/L.CASEI/B.BIF/B.ROBIN/FOS (PROBIOTIC BLEND ORAL) Take by mouth. folic acid 800 mcg ORAL Tab Take one(1) tablet daily. 0 DAILY MULTIVITAMIN TAB Take one(1) tablet daily. 0 cephALEXin (KEFLEX) 500 mg capsule Take 1 capsule by mouth four times daily for 7 days. 28 capsule 0 No current facility-administered medications for this visit. PAST SURGICAL HISTORY Procedure Laterality Date COLSC FLX W/RMVL OF TUMOR POLYP LESION SNARE TQ 01/03/2008 Repeat in EGD TRANSORAL BIOPSY SINGLE/MULTIPLE 01/03/2008 EXC LESION TDN SHTH/JT CAPSL HAND/FNGR Right 04/10/2022 Excision ganglion cyst right 5th finger PAST SURGICAL HISTORY OF 07/27/1979 deviated septum FAMILY HISTORY Problem Relation Age of Onset Hypertension Mother Lipids Mother Heart Father irregular heart beat. Social History Tobacco Use Smoking status: Never Smokeless tobacco: Never Vaping Use Vaping Use: Never used Substance Use Topics Alcohol use: Yes Comment: occasionally Drug use: No Objective BP 118/80 Pulse 79 Temp 36.8 C (98.2 F) (Tympanic) Resp 18 Wt 59.9 kg (132 lb) SpO2 97% BMI 22.48 kg/m Physical Exam Vitals reviewed. Constitutional: Appearance: Normal appearance. HENT: Head: Atraumatic. Comments: Patient has erythematous slightly raised rash to the bilateral cheek areas of her face. No vesicles. No petechia or purpura. Blanches. Skin: General: Skin is warm and dry. Findings: Rash present. Neurological: Mental Status: She is alert. Assessment and Plan ASSESSMENT/PLAN: 1. Allergic reaction, initial encounter - ICD9: 995.3, ICD10: T78.40XA Patient having allergic reaction to the clindamycin. No signs of anaphylaxis. I did add this to her list of allergies. I did review the CT scan of her sinuses which did show the periapical lucency on the right maxillary molar so I will start her on keflex. She has been on cephalosporins previously. Recommended dental follow-up. Also did discuss she has multiple antibiotic class allergies, may benefit from follow-up with allergy to have penicillin testing to see if she is truly allergic. She was not sure what had happened when she took a penicillin and had been so many years. Discussed red flags to be seen in the emergency department. Patient agreeable with plan. Josephine Iniguez PA-C documented in this encounter [facility] 02-17-2023 Note HNO ID: [id number] Author: Kira Villasenor RT(R) Service: ? Author Type: Facilities Maintenance Assistant Type: Progress Notes Filed: 02/17/2023 1:56 PM Note Text: Radiology Service Progress Note PATIENT NAME: Lupis Ramirez DATE OF SERVICE: February 17, 2023 TIME: 1:55 PM PATIENT IDENTITY VERIFICATION COMPLETED USING TWO (2) IDENTIFIERS: Name and Date of confirmed by patient verbally. FALL SCREENING: Has the patient had 2 falls in the last year or 1 fall with injury or currently using an Ambulatory Assistive Device (Walker, Cane, Wheelchair, Crutches, etc.)? No PATIENT GENDER DATA: Female. status: : No status: NO. PATIENT RELEVANT IMPLANT DATA REVIEWED: Yes RADIOLOGY DEPARTMENT: CT; Exam(s) Completed: Sinus PERIPHERAL IV DATA: Not applicable SIGNED BY: RT Rodney(R) February 17, 2023 1:55 PM [facility] 02-17-2023 History of Presen t illness Narrative Radiology Service Progress Note PATIENT NAME: Lupis Ramirez DATE OF SERVICE: February 17, 2023 TIME: 1:55 PM PATIENT IDENTITY VERIFICATION COMPLETED USING TWO (2) IDENTIFIERS: Name and Date of confirmed by patient verbally. FALL SCREENING: Has the patient had 2 falls in the last year or 1 fall with injury or currently using an Ambulatory Assistive Device (Walker, Cane, Wheelchair, Crutches, etc.)? No PATIENT GENDER DATA: Female. status: : No status: NO. PATIENT RELEVANT IMPLANT DATA REVIEWED: Yes RADIOLOGY DEPARTMENT: CT; Exam(s) Completed: Sinus PERIPHERAL IV DATA: Not applicable SIGNED BY: RT Rodney(R) February 17, 2023 1:55 PM documented in this encounter [facility] 02-12-2023 Note HNO ID: [id number] Author: Chrystal Mariee PA-C Service: ? Author Type: Physician Meter Technician Type: Progress Notes Filed: 02/12/2023 8:24 AM Note Text: Chief Complaint Patient presents with: 6 Month Exam HPI Lupis Ramirez is a 73 year old female who presents here today for Chronic Medical Conditions.. Patient with hx of hyperlipidemia, osteoporosis, DDD, RLS, insomnia, fibro, and those as below. Patient has been dealing with recurring sinus and teeth pain for months. Gets better and then worsens again. Dentist has not mentioned any issues with her teeth. She is taking singulair, flonase, sudafed and tylenol. Otherwise doing okay. Past medical history, appointments, medications, allergies reviewed. Previous Medical History PAST MEDICAL HISTORY Diagnosis Date Acute gastritis without mention of hemorrhage Advance directive discussed with patient 08/15/2022 Discussed 07/2022: Needs to bring in copies. Arthritis of both hips 08/23/2015 Benign neoplasm of colon Dyslipidemia 01/22/2021 Fibromyalgia 03/25/2010 Incidental lung nodule, less than or equal to 3mm 10/19/2014 F/u not needed Inflammatory arthritis 03/26/2015 Insomnia 03/26/2015 Intrinsic asthma 10/31/[address] 08/15/2022 DPA: Lainey () Lumbar degenerative disc disease 12/16/2010 Medicare annual wellness visit, subsequent 08/14/2021 Medicare Part B: Not able to find, Last done: 08/14/2021 Osteoporosis 12/10/2009 PMH - PAST MEDICAL HISTORY OF allergic rhinitis Postmenopausal atrophic vaginitis 11/03/2012 Psoriasis of nail 03/26/2015 Restless leg syndrome 03/25/2010 Spinal stenosis of lumbar region with radiculopathy 10/09/2016 Vitamin D deficiency 12/12/2009 Previous Surgical History PAST SURGICAL HISTORY Procedure Laterality Date COLSC FLX W/RMVL OF TUMOR POLYP LESION SNARE TQ 01/03/2008 Repeat in EGD TRANSORAL BIOPSY SINGLE/MULTIPLE 01/03/2008 EXC LESION TDN SHTH/JT CAPSL HAND/FNGR Right 04/10/2022 Excision ganglion cyst right 5th finger PAST SURGICAL HISTORY OF 07/27/1979 deviated septum Family History FAMILY HISTORY Problem Relation Age of Onset Hypertension Mother Lipids Mother Heart Father irregular heart beat. Patient Allergies ALLERGIES Allergen Reactions Boniva [Ibandronate] GI Upset Increase in GERD Fosamax [Alendronat* GI Upset Increase heartburn/GI Mold Other: See Comments Nasal/sinus Penicillins Unknown Pollen Extracts Other: See Comments Nasal/sinus Sulfa (Sulfonamide * Unknown Current Medications Current Outpatient Medications on File Prior to Visit Medication Sig montelukast (SINGULAIR) 10 mg tablet Take 1 tablet by mouth daily at bedtime. meloxicam (MOBIC) 7.5 mg tablet Take 1 tablet by mouth once daily. gabapentin (NEURONTIN) 300 mg capsule Take 1 capsule by mouth daily at bedtime for 180 days. denosumab (PROLIA) 60 mg/mL 1 milliliter subcutaneously every 6 months. fluticasone (FLONASE) 50 mcg/actuation nasal spray instill 2 sprays into each nostril once daily MELATONIN ORAL Take by mouth as directed. albuterol HFA (VENTOLIN HFA) 90 mcg/actuation inhaler Inhale 2 Puffs as instructed every 4 hours as needed for Wheezing/Shortness of Breath. VITAMIN B COMPLEX ORAL Take by mouth. L.ACID/L.CASEI/B.BIF/B.ROBIN/FOS (PROBIOTIC BLEND ORAL) Take by mouth. folic acid 800 mcg ORAL Tab Take one(1) tablet daily. DAILY MULTIVITAMIN TAB Take one(1) tablet daily. cefADROxil (DURICEF) 500 mg capsule Take 1 capsule by mouth twice daily. (Patient not taking: Reported on 12/31/2022) Calcium-Cholecalciferol, D3, 600 mg-10 mcg (400 unit) cap Take by mouth. (Patient not taking: Reported on 02/12/2023) No current facility-administered medications on file prior to visit. Social History Social History Tobacco Use Smoking status: Never Smokeless tobacco: Never Vaping Use Vaping Use: Never used Substance Use Topics Alcohol use: Yes Comment: occasionally Drug use: No Review of Symptoms REVIEW OF SYSTEMS GENERAL: No weight loss, malaise or fevers HEENT: SEE HPI NECK: Negative for lumps, goiter, pain and significant neck swelling RESPIRATORY: Negative for cough, hemoptysis, wheezing, COPD, dyspnea or shortness of breath CARDIOVASCULAR: Negative for chest pain, leg swelling, hypertension, CHF or palpitations NEURO: has noted increase in her RLS/neuropathy in her feet at night/evening EXAM: BP 120/70 (BP Site: Right Arm, BP Position: Sitting, BP Cuff Size: Regular Adult) Pulse 60 Temp 36.6 ?C (97.8 ?F) Resp 16 Wt 59.4 kg (131 lb) BMI 22.31 kg/m? General Appearance: Well appearing, alert, in no acute distress, well-hydrated, well nourished.. Ears: External ears normal, canals clear, TMs pearly balderas. Nose/Sinuses: Nares normal, septum midline, mucosa normal, no drainage or sinus tenderness. Oropharynx: Neck: Supple, no adenopathy; thyroid symmetric, normal size, no bruits. Lungs: L (more content not included)... [facility] 01-29-2023 Note HNO ID: [id number] Author: Felicia Love MA Service: ? Author Type: Metal Fabricating Inspector Type: Progress Notes Filed: 01/29/2023 5:25 PM Note Text: Scan on 01/21/2023 8:22 AM by External Provider, PHUONG: Consultation - PT/OT/Speech Felicia Love MA [facility] 01-29-2023 History of Presen t illness Narrative Scan on 01/21/2023 8:22 AM by External Provider, PHUONG: Consultation - PT/OT/Speech Felicia Love MA documented in this encounter [facility] 01-29-2023 Note HNO ID: [id number] Author: Susanne West LPN Service: ? Author Type: ? Type: Progress Notes Filed: 01/29/2023 10:07 AM Note Text: Patient presents for Prolia injection. Denies any problems at this time. Brought own medication. Patient instructed on any SE of medication, verbalized understanding and agreed to proceed with treatment. Tolerated injection well. Susanne West LPN [facility] 01-29-2023 History of Presen t illness Narrative Patient presents for Prolia injection. Denies any problems at this time. Brought own medication. Patient instructed on any SE of medication, verbalized understanding and agreed to proceed with treatment. Tolerated injection well. Susanne West LPN documented in this encounter [facility] 12-31-2022 Note HNO ID: [id number] Author: Nadia Reddy APRN.RESIDENTIAL SOLAR SALES CONSULTANT Service: ? Author Type: Nurse Practitioner Type: Progress Notes Filed: 12/31/2022 1:58 PM Note Text: This note was created using NoteWriter. Subjective Lupis Ramirez is a 72 year old female. 72 year old female with PMH asthma, RLS, fibromyalgia, dyslipidemia, arthritis presents for illness. Acute onset 4 days ago +post nasal drainage +runny nose Has since progressed into cough Harsh and non productive Denies wheezing Denies fever or chills. Denies tobacco usage Has used nasal spray and Tylenol (last dosage @ 2100 yesterday) Denies SOB or dyspnea Denies CP. Denies malaise or fatigue. The history is provided by the patient. No commission clerk was used. Cough This is a new problem. The current episode started more than 2 days ago. The problem occurs constantly. The problem has been gradually worsening. The cough is Non-productive. The maximum temperature recorded prior to her arrival was 100 to 100.9 F. Associated symptoms include ear congestion and rhinorrhea. Pertinent negatives include no chest pain, no chills, no sweats, no weight loss, no ear pain, no headaches, no sore throat, no myalgias, no shortness of breath, no wheezing and no eye redness. Treatments tried: nasal spray and Tylenol. The treatment provided mild relief. She is not a smoker. Her past medical history is significant for asthma. Her past medical history does not include bronchitis, pneumonia, bronchiectasis, COPD or emphysema. PAST MEDICAL HISTORY Diagnosis Date Acute gastritis without mention of hemorrhage Advance directive discussed with patient 08/15/2022 Discussed 07/2022: Needs to bring in copies. Arthritis of both hips 08/23/2015 Benign neoplasm of colon Dyslipidemia 01/22/2021 Fibromyalgia 03/25/2010 Incidental lung nodule, less than or equal to 3mm 10/19/2014 F/u not needed Inflammatory arthritis 03/26/2015 Insomnia 03/26/2015 Intrinsic asthma 10/31/[address] 08/15/2022 DPA: Lainey () Lumbar degenerative disc disease 12/16/2010 Medicare annual wellness visit, subsequent 08/14/2021 Medicare Part B: Not able to find, Last done: 08/14/2021 Osteoporosis 12/10/2009 PMH - PAST MEDICAL HISTORY OF allergic rhinitis Postmenopausal atrophic vaginitis 11/03/2012 Psoriasis of nail 03/26/2015 Restless leg syndrome 03/25/2010 Spinal stenosis of lumbar region with radiculopathy 10/09/2016 Vitamin D deficiency 12/12/2009 PAST SURGICAL HISTORY Procedure Laterality Date COLSC FLX W/RMVL OF TUMOR POLYP LESION SNARE TQ 01/03/2008 Repeat in EGD TRANSORAL BIOPSY SINGLE/MULTIPLE 01/03/2008 EXC LESION TDN SHTH/JT CAPSL HAND/FNGR Right 04/10/2022 Excision ganglion cyst right 5th finger PAST SURGICAL HISTORY OF 07/27/1979 deviated septum ALLERGIES Boniva [Ibandronate], Fosamax [Alendronate], Mold, Penicillins, Pollen Extracts, and Sulfa (Sulfonamide Antibiotics) MEDICATIONS montelukast (SINGULAIR) 10 mg tabletTake 1 tablet by mouth daily at bedtime.Disp: 90 tabletRfl: 1 meloxicam (MOBIC) 7.5 mg tabletTake 1 tablet by mouth once daily.Disp: 90 tabletRfl: 1 gabapentin (NEURONTIN) 300 mg capsuleTake 1 capsule by mouth daily at bedtime for 180 days.Disp: 90 capsuleRfl: 1 denosumab (PROLIA) 60 mg/mL1 milliliter subcutaneously every 6 months.Disp: 1 mLRfl: 1 fluticasone (FLONASE) 50 mcg/actuation nasal sprayinstill 2 sprays into each nostril once dailyDisp: 48 gRfl: 11 MELATONIN ORALTake by mouth as directed.Disp: Rfl: albuterol HFA (VENTOLIN HFA) 90 mcg/actuation inhalerInhale 2 Puffs as instructed every 4 hours as needed for Wheezing/Shortness of Breath.Disp: 1 InhalerRfl: 5 VITAMIN B COMPLEX ORALTake by mouth.Disp: Rfl: L.ACID/L.CASEI/B.BIF/B.ROBIN/FOS (PROBIOTIC BLEND ORAL)Take by mouth.Disp: Rfl: Calcium-Cholecalciferol, D3, 600 mg-10 mcg (400 unit) capTake by mouth.Disp: Rfl: 0 folic acid 800 mcg ORAL TabTake one(1) tablet daily.Disp: Rfl: 0 DAILY MULTIVITAMIN TABTake one(1) tablet daily.Disp: Rfl: 0 azithromycin (ZITHROMAX) 250 mg tabletTake 2 tablets by mouth once daily for 1 day, THEN 1 tablet once daily for 4 days.Disp: 6 tabletRfl: 0 cefADROxil (DURICEF) 500 mg capsuleTake 1 capsule by mouth twice daily.Disp: 20 capsuleRfl: 0 (Patient not taking: Reported on 12/31/2022) FAMILY HISTORY Problem Relation Age of Onset Hypertension Mother Lipids Mother Heart Father irregular heart beat. Social History Tobacco Use Smoking status: Never Smokeless tobacco: Never Vaping Use Vaping Use: Never used Substance Use Topics Alcohol use: Yes Comment: occasionally Drug use: No Review of Systems Constitutional: Positive for fever. Negative for chills, fatigue and weight loss. HENT: Positive for congestion, postnasal drip, rhinorrhea, sinus pressure and sinus pain. Negative for ear pain and sore throat. Eyes: Negative for pain, discharge, redness and itching. (more content not included)... [facility] 12-31-2022 History of Presen t illness Narrative This note was created using [employer]. Subjective Lupis Ramirez is a 72 year old female. 72 year old female with PMH asthma, RLS, fibromyalgia, dyslipidemia, arthritis presents for illness. Acute onset 4 days ago +post nasal drainage +runny nose Has since progressed into cough Harsh and non productive Denies wheezing Denies fever or chills. Denies tobacco usage Has used nasal spray and Tylenol (last dosage @ 2100 yesterday) Denies SOB or dyspnea Denies CP. Denies malaise or fatigue. The history is provided by the patient. No commission clerk was used. Cough This is a new problem. The current episode started more than 2 days ago. The problem occurs constantly. The problem has been gradually worsening. The cough is Non-productive. The maximum temperature recorded prior to her arrival was 100 to 100.9 F. Associated symptoms include ear congestion and rhinorrhea. Pertinent negatives include no chest pain, no chills, no sweats, no weight loss, no ear pain, no headaches, no sore throat, no myalgias, no shortness of breath, no wheezing and no eye redness. Treatments tried: nasal spray and Tylenol. The treatment provided mild relief. She is not a smoker. Her past medical history is significant for asthma. Her past medical history does not include bronchitis, pneumonia, bronchiectasis, COPD or emphysema. PAST MEDICAL HISTORY Diagnosis Date Acute gastritis without mention of hemorrhage Advance directive discussed with patient 08/15/2022 Discussed 07/2022: Needs to bring in copies. Arthritis of both hips 08/23/2015 Benign neoplasm of colon Dyslipidemia 01/22/2021 Fibromyalgia 03/25/2010 Incidental lung nodule, less than or equal to 3mm 10/19/2014 F/u not needed Inflammatory arthritis 03/26/2015 Insomnia 03/26/2015 Intrinsic asthma 10/31/[address] 08/15/2022 DPA: Lainey () Lumbar degenerative disc disease 12/16/2010 Medicare annual wellness visit, subsequent 08/14/2021 Medicare Part B: Not able to find, Last done: 08/14/2021 Osteoporosis 12/10/2009 PMH - PAST MEDICAL HISTORY OF allergic rhinitis Postmenopausal atrophic vaginitis 11/03/2012 Psoriasis of nail 03/26/2015 Restless leg syndrome 03/25/2010 Spinal stenosis of lumbar region with radiculopathy 10/09/2016 Vitamin D deficiency 12/12/2009 PAST SURGICAL HISTORY Procedure Laterality Date COLSC FLX W/RMVL OF TUMOR POLYP LESION SNARE TQ 01/03/2008 Repeat in EGD TRANSORAL BIOPSY SINGLE/MULTIPLE 01/03/2008 EXC LESION TDN SHTH/JT CAPSL HAND/FNGR Right 04/10/2022 Excision ganglion cyst right 5th finger PAST SURGICAL HISTORY OF 07/27/1979 deviated septum ALLERGIES Boniva [Ibandronate], Fosamax [Alendronate], Mold, Penicillins, Pollen Extracts, and Sulfa (Sulfonamide Antibiotics) MEDICATIONS montelukast (SINGULAIR) 10 mg tablet^Take 1 tablet by mouth daily at bedtime.^Disp: 90 tablet^Rfl: 1 meloxicam (MOBIC) 7.5 mg tablet^Take 1 tablet by mouth once daily.^Disp: 90 tablet^Rfl: 1 gabapentin (NEURONTIN) 300 mg capsule^Take 1 capsule by mouth daily at bedtime for 180 days.^Disp: 90 capsule^Rfl: 1 denosumab (PROLIA) 60 mg/mL^1 milliliter subcutaneously every 6 months.^Disp: 1 mL^Rfl: 1 fluticasone (FLONASE) 50 mcg/actuation nasal spray^instill 2 sprays into each nostril once daily^Disp: 48 g^Rfl: 11 MELATONIN ORAL^Take by mouth as directed.^Disp: ^Rfl: albuterol HFA (VENTOLIN HFA) 90 mcg/actuation inhaler^Inhale 2 Puffs as instructed every 4 hours as needed for Wheezing/Shortness of Breath.^Disp: 1 Inhaler^Rfl: 5 VITAMIN B COMPLEX ORAL^Take by mouth.^Disp: ^Rfl: L.ACID/L.CASEI/B.BIF/B.ROBIN/FOS (PROBIOTIC BLEND ORAL)^Take by mouth.^Disp: ^Rfl: Calcium-Cholecalciferol, D3, 600 mg-10 mcg (400 unit) cap^Take by mouth.^Disp: ^Rfl: 0 folic acid 800 mcg ORAL Tab^Take one(1) tablet daily.^Disp: ^Rfl: 0 DAILY MULTIVITAMIN TAB^Take one(1) tablet daily.^Disp: ^Rfl: 0 azithromycin (ZITHROMAX) 250 mg tablet^Take 2 tablets by mouth once daily for 1 day, THEN 1 tablet once daily for 4 days.^Disp: 6 tablet^Rfl: 0 cefADROxil (DURICEF) 500 mg capsule^Take 1 capsule by mouth twice daily.^Disp: 20 capsule^Rfl: 0 (Patient not taking: Reported on 12/31/2022) FAMILY HISTORY Problem Relation Age of Onset Hypertension Mother Lipids Mother Heart Father irregular heart beat. Social History Tobacco Use Smoking status: Never Smokeless tobacco: Never Vaping Use Vaping Use: Never used Substance Use Topics Alcohol use: Yes Comment: occasionally Drug use: No Review of Systems Constitutional: Positive for fever. Negative for chills, fatigue and weight loss. HENT: Positive for congestion, postnasal drip, rhinorrhea, sinus pressure and sinus pain. Negative for ear pain and sore throat. Eyes: Negative for pain, discharge, redness and itching. Respiratory: Positive for cough. Negative for apnea, choking, chest tightness, shortness of breath and wheezing. Cardiovascular: Negative for chest pain. Gastrointestinal: Negative for abdominal pain, diarrhea, nausea and vomiting. Musculoskeletal: Negative for arthralgias, back pain and myalgias. Allergic/Immunologic: Negative for environmental allergies, food allergies and immunocompromised state. Neurological: Negative for headaches. Hematological: Negative for adenopathy. Does not bruise/bleed easily. Psychiatric/Behavioral: Negative for agitation and behavioral problems. Objective BP 104/80 Pulse 88 Temp 37.3 C (99.2 F) Resp 21 Wt 58.2 kg (128 lb 3.2 oz) SpO2 97% BMI 21.83 kg/m Physical Exam Vitals and nursing note reviewed. Constitutional: General: She is not in acute distress. Appearance: Normal appearance. She is normal weight. She is not ill-appearing, toxic-appearing or diaphoretic. HENT: Head: Normocephalic and atraumatic. Comments: +maxillary sinus pressure Right Ear: Ear canal and external ear normal. Left Ear: Ear canal and external ear normal. Ears: Comments: TM erythematous and bulging Nose: Nose normal. No congestion or rhinorrhea. Mouth/Throat: Mouth: Mucous membranes are moist. Pharynx: No oropharyngeal exudate or posterior oropharyngeal erythema. Eyes: General: Right eye: No discharge. Left eye: No discharge. Extraocular Movements: Extraocular movements intact. Conjunctiva/sclera: Conjunctivae normal. Pupils: Pupils are equal, round, and reactive to light. Cardiovascular: Rate and Rhythm: Normal rate and regular rhythm. Pulses: Normal pulses. Heart sounds: Normal heart sounds. No murmur heard. No friction rub. Pulmonary: Effort: Pulmonary effort is normal. No respiratory distress. Breath sounds: Normal breath sounds. No stridor. No wheezing, rhonchi or rales. Chest: Chest wall: No tenderness. Abdominal: General: Abdomen is flat. There is no distension. Palpations: Abdomen is soft. There is no mass. Tenderness: There is no abdominal tenderness. There is no right CVA tenderness, left CVA tenderness, guarding or rebound. Hernia: No hernia is present. Musculoskeletal: General: No swelling, tenderness, deformity or signs of injury. Normal range of motion. Cervical back: Normal range of motion and neck supple. No rigidity. Right lower leg: No edema. Left lower leg: No edema. Lymphadenopathy: Cervical: No cervical adenopathy. Skin: General: Skin is warm and dry. Coloration: Skin is not jaundiced or pale. Findings: No bruising, erythema, lesion or rash. Neurological: General: No focal deficit present. Mental Status: She is alert and oriented to person, place, and time. Cranial Nerves: No cranial nerve deficit. Sensory: No sensory deficit. Motor: No weakness. Coordination: Coordination normal. Gait: Gait normal. Psychiatric: Mood and Affect: Mood normal. Behavior: Behavior normal. Thought Content: Thought content normal. Judgment: Judgment normal. Assessment and Plan ASSESSMENT/PLAN: 1. Acute otitis media, left - ICD9: 382.9, ICD10: H66.92 (primary diagnosis) - Will begin treatment with as per antibiotic as written, see orders - The patient should also be given OTC cough and cold meds as needed and nasal saline gtts and suction prn for the first 5-7 days of treatment. - Supportive care with plenty of fluids, rest, and analgesia prn. - Follow up in 3-5 days if symptoms persist or worsen. 2. URI, acute - ICD9: 465.9, ICD10: J06.9 - Symptomatic treatment with prn analgesia - Supportive care with fluids and rest - The patient may also use OTC cough and cold meds as needed, warm salt water gargles, throat lozenges and/or OTC throat spray as needed, and nasal saline gtts and suction prn. - Follow up in 3-5 days if symptoms persist or sooner if worsening of symptoms Nadia Reddy APRN.RESIDENTIAL SOLAR SALES CONSULTANT documented in this encounter [facility] 12-26-2022 Miscellaneous Notes Records have been faxed as requested. Confirmation received. Patient called. Verified name and date of . Patient states she was told by someone when she called into the clinic to call department to get her records and have them sent to [facility], Dr. Calvert. Attention: Brisa- fax to [phone]. Records from June including operative records, x-rays, testing done. Kira Miles LPN documented in this encounter [facility] 09-12-2022 Note Patient Outreach (MICHELLE DUNCANAV) LUPIS RAMIREZ ([id number]) 1950 F Date Time Provider Department 09/12/22 RYANN NEWTON ([facility]) LAI During your visit today, we recorded the following information about you: Ryann Newton [facility] 09/12/2022 10:29 AM Signed POPULATION HEALTH NAVIGATION OUTREACH Action/FYI: [employer] Care Gaps 09/12/22 Discuss the following due/overdue care gaps: ~6 Month follow up (around 02/12/23 w/ GLASS CALIBRATOR.RESIDENTIAL SOLAR SALES CONSULTANT per 08/15/22 PCP notes) Outcome: ~Spoke with patient, scheduled with PA per patient request on 02/12/23. Patient Identified by Name and : YES, via phone Outreach Outcome/Action Spoke to patient / parent / legal guardian: Patient scheduled Did you use a PCP flex slot to schedule this appointment? No Reason for Outreach Care Gap or Scheduling/Wellness visits Payer: Payor: [employer] MEDICARE / Plan: AET MEDICARE PPO / Product Type: PPO / Care Gap Reviewed:: Follow-up appointment Reminder: Reminder note to check Health Maintenance for items below Health Maintenance items due: There are no preventive care reminders to display for this patient. Navigation Signature: Ryann Newton Population Health Navigator September 12, 2022 10:02 AM Allergies As of Date: 09/12/2022 Noted Allergy Reaction BONIVA (IBANDRONATE) 07/09/2022 8 - GI Upset Comments: Increase in GERD FOSAMAX (ALENDRONATE) 07/09/2022 8 - GI Upset Comments: Increase heartburn/GI MOLD 02/09/2019 14 - Other: See Comments Comments: Nasal/sinus PENICILLINS 08/20/2004 16 - Unknown POLLEN EXTRACTS 02/09/2019 14 - Other: See Comments Comments: Nasal/sinus SULFA (SULFONAMIDE ANTIBIOTICS) 08/20/2004 16 - Unknown Date Reviewed: 08/15/2022 Reviewed by: Joan Hein MD - Fully Assessed Reason for Visit: Population Health Navigation Outreach [3910] Cmt: [employer] Care Gaps Prescriptions as of 09/12/2022 - montelukast (SINGULAIR) 10 mg tablet Take 1 tablet by mouth daily at bedtime. - meloxicam (MOBIC) 7.5 mg tablet Take 1 tablet by mouth once daily. - gabapentin (NEURONTIN) 300 mg capsule Take 1 capsule by mouth daily at bedtime for 180 days. - cefADROxil (DURICEF) 500 mg capsule Take 1 capsule by mouth twice daily. - denosumab (PROLIA) 60 mg/mL 1 milliliter subcutaneously every 6 months. - fluticasone (FLONASE) 50 mcg/actuation nasal spray instill 2 sprays into each nostril once daily - MELATONIN ORAL Take by mouth as directed. - albuterol HFA (VENTOLIN HFA) 90 mcg/actuation inhaler Inhale 2 Puffs as instructed every 4 hours as needed for Wheezing/Shortness of Breath. - VITAMIN B COMPLEX ORAL Take by mouth. - L.ACID/L.CASEI/B.BIF/B.ROBIN/FOS (PROBIOTIC BLEND ORAL) Take by mouth. - Calcium-Cholecalciferol, D3, 600 mg-10 mcg (400 unit) cap Take by mouth. - folic acid 800 mcg ORAL Tab Take one(1) tablet daily. - DAILY MULTIVITAMIN TAB Take one(1) tablet daily. Facility-Administered Medications as of 09/12/2022 - denosumab 60 mg injection (PROLIA) Problem List As Of Date 09/12/2022 Noted Resolved BURSITIS NEC [M71.50] 08/20/2004 10/18/2004 Acute gastritis without mention of hemorrhage [*01/03/2008 01/01/2015 Osteoporosis [M81.0] 12/10/2009 Vitamin D deficiency [E55.9] 12/12/2009 Restless leg syndrome [G25.81] 03/25/2010 Lumbar degenerative disc disease [M51.36] 12/16/2010 Postmenopausal atrophic vaginitis [N95.2] 11/03/2012 Intrinsic asthma [J45.909] 10/31/2014 Insomnia [G47.00] 03/26/2015 Inflammatory arthritis [M19.90] 03/26/2015 Psoriasis of nail [L40.9] 03/26/2015 Arthritis of both hips [M16.0] 08/23/2015 Fibromyalgia [M79.7] 08/23/2015 Spinal stenosis of lumbar region with radiculop*10/09/2016 Screening for colon cancer [Z12.11] 01/21/2021 Medication management [Z79.899] 01/21/2021 Dyslipidemia [E78.5] 01/22/2021 Medicare annual wellness visit, subsequent [Z00*08/14/[address] [Z78.9] 08/15/2022 Advance directive discussed with patient [Z71.8*08/15/2022 Encounter Status:Closed by RYANN HAQUE on 09/12/22 [facility] 09-12-2022 Note HNO ID: [id number] Author: Ryann Spears Service: ? Author Type: ? Type: Progress Notes Filed: 09/12/2022 10:29 AM Note Text: POPULATION HEALTH NAVIGATION OUTREACH Action/FYI: [employer] Care Gaps 09/12/22 Discuss the following due/overdue HM care gaps: ~6 Month follow up (around 02/12/23 w/ GLASS CALIBRATOR.RESIDENTIAL SOLAR SALES CONSULTANT per 08/15/22 PCP notes) Outcome: ~Spoke with patient, scheduled with PA per patient request on 02/12/23. Patient Identified by Name and : YES, via phone Outreach Outcome/Action Spoke to patient / parent / legal guardian: Patient scheduled Did you use a PCP flex slot to schedule this appointment? No Reason for Outreach Care Gap or Scheduling/Wellness visits Payer: Payor: [employer] MEDICARE / Plan: [employer] MEDICARE PPO / Product Type: PPO / Care Gap Reviewed:: Follow-up appointment Reminder: Reminder note to check Health Maintenance for items below Health Maintenance items due: There are no preventive care reminders to display for this patient. Navigation Signature: Ryann Newton Population Health Navigator September 12, 2022 10:02 AM [facility] 09-12-2022 History of Presen t illness Narrative POPULATION HEALTH NAVIGATION OUTREACH Action/FYI: [employer] Care Gaps 09/12/22 Discuss the following due/overdue HM care gaps: ~6 Month follow up (around 02/12/23 w/ GLASS CALIBRATOR.RESIDENTIAL SOLAR SALES CONSULTANT per 08/15/22 PCP notes) Outcome: ~Spoke with patient, scheduled with PA per patient request on 02/12/23. Patient Identified by Name and : YES, via phone Outreach Outcome/Action Spoke to patient / parent / legal guardian: Patient scheduled Did you use a PCP flex slot to schedule this appointment? No Reason for Outreach Care Gap or Scheduling/Wellness visits Payer: Payor: [employer] MEDICARE / Plan: [employer] MEDICARE PPO / Product Type: PPO / Care Gap Reviewed:: Follow-up appointment Reminder: Reminder note to check Health Maintenance for items below Health Maintenance items due: There are no preventive care reminders to display for this patient. Navigation Signature: Ryann Newton Population Health Navigator September 12, 2022 10:02 AM documented in this encounter [facility] 08-28-2022 Miscellaneous Notes Pt notified an Rx has been sent to the pharmacy for her. Pt voiced understanding. Josee Berman LPN Let patient know antibiotic sent to [facility]. The following approved medication requests have been transmitted electronically. Requested Prescriptions Signed Prescriptions Disp Refills cefADROxil (DURICEF) 500 mg capsule 20 capsule 0 Sig: Take 1 capsule by mouth twice daily. Authorizing Provider: JOAN HEIN MD Esme saw Dr. Hein on 08-15-22 for a check up and had some cold symptoms. They have not improved much and she was told that he would call in a script if she let him know her status. Please send to [facility] in [place]. Esme [phone] documented in this encounter [facility] 08-20-2022 Miscellaneous Notes Patient notified and voiced understanding. Felicia Love MA Let patient know her elevated white blood cell count may be from the steroid injection. I want to repeat the CBC in a month. Order placed. Spoke with pt and information listed below given. Pt verbalizes understanding. Pt got a pain injection about 2 to 3 weeks ago. Pt not scheduled for another injections but they are considering doing a procedure and she is not sure what it is called. Kim Charles LPN Left message for patient to contact office. Felicia Love MA Let patient know her UA, electrolytes, liver functions, kidney functions and Vit D were all good. Here CBC shows that her white blood cells are elevated. See if she just got a steroid inject from pain management recently? If so is she to get another one in the next month? Her lipid pane showed Trigs are good at 133, HDL good at 86. LDL high at 162 (goal<130 and last time was 150). Advise working on less fat in diet and walking for exercise. If this continues to be elevated we may need to treat with medication. documented in this encounter [facility] 08-15-2022 Note HNO ID: [id number] Author: Joan Hein MD Service: ? Author Type: Physician Type: Progress Notes Filed: 08/15/2022 2:24 PM Note Text: Medicare Yearly Visit Medical B eligibilty date Not able to find Date of last exam 08/04/2021 PAST MEDICAL HISTORY PAST MEDICAL HISTORY Diagnosis Date Acute gastritis without mention of hemorrhage Arthritis of both hips 08/23/2015 Benign neoplasm of colon Dyslipidemia 01/22/2021 Fibromyalgia 03/25/2010 Incidental lung nodule, less than or equal to 3mm 10/19/2014 F/u not needed Inflammatory arthritis 03/26/2015 Insomnia 03/26/2015 Intrinsic asthma 10/31/2014 Lumbar degenerative disc disease 12/16/2010 Medicare annual wellness visit, subsequent 08/14/2021 Medicare Part B: Not able to find, Last done: 08/14/2021 Osteoporosis 12/10/2009 PMH - PAST MEDICAL HISTORY OF allergic rhinitis Postmenopausal atrophic vaginitis 11/03/2012 Psoriasis of nail 03/26/2015 Restless leg syndrome 03/25/2010 Spinal stenosis of lumbar region with radiculopathy 10/09/2016 Vitamin D deficiency 12/12/2009 PAST SURGICAL HISTORY PAST SURGICAL HISTORY Procedure Laterality Date COLSC FLX W/RMVL OF TUMOR POLYP LESION SNARE TQ 01/03/08 Repeat in EGD TRANSORAL BIOPSY SINGLE/MULTIPLE 01/03/08 PAST SURGICAL HISTORY OF 1980 deviated septum ALLERGIES: Mold, Penicillins, Pollen Extracts, and Sulfa (Sulfonamide Antibiotics) Medications reviewed: Yes FAMILY HISTORY FAMILY HISTORY Problem Relation Age of Onset Hypertension Mother Lipids Mother Heart Father irregular heart beat. SOCIAL HISTORY: SOCIAL HISTORY Social History Tobacco Use Smoking status: Never Smoker Smokeless tobacco: Never Used Substance Use Topics Alcohol use: Yes Comment: occasionally Drug use: No Lupis works out regularly 7 times per week with walking on treadmill and light weights. She watches her diet for sodium, low fat and low cholesterol generally not very much. List of current specialists seen: Dr. Seth Funez ([place]) Dr. Alves (pain management) End of Live Planning discussed including patients advanced directive wishes: Yes I am willing to follow Lupis's advanced directives. PHQ-2 / Depression screen Depression Screening 10/09/2016 11/10/2017 02/09/2019 08/15/2022 PHQ-2 Score 0 0 0 0 Depression screening tool completed and reviewed. Based on score and interview, patient is not at risk for depression. Screening tool discussed with patient, and I recommended no further intervention at this time. Functional Ability/Safety Screen 1. Was the patient's timed Up and Go test unsteady or longer than 30 seconds? No 2. Does the patient need help with the phone, transportation, shopping,preparing meals, housework, laundry, medications or managing money? No 3. Does your home have rugs in the hallway, lack of grab bars in the bathroom, lack of handrails on the stairs or have poor lighting? No Hearing Evaluation: normal PHYSICAL EXAM BP 110/70 (BP Site: Left Arm, BP Position: Sitting, BP Cuff Size: Regular Adult) Pulse 83 Resp 14 Ht 163.2 cm (5' 4.25 ) Wt 60.3 kg (133 lb) BMI 22.65 kg/m? Alert and oriented X 3: YES Body mass index is 22.65 kg/m?. Visual acuity: seeing optho See below ASSESSMENT/PLAN: 72 year old female The following prevention plan was discussed during the office visit and provided to the patient: See below Joan Hein MD Chief Complaint Patient presents with: Medicare Wellness Exam HPI Lupis Ramirez is a 72 year old female who presents here today for Medicare wellness. Patient with hx of asthma, HLP, inflammatory arthritis, RLS, insomnia, fibro, osteoporosis, chronic back pains and those as reviewed below. Patient has been doing ok. Had a cyst removed from the right pinkie. No new issues or concern. Past medical history, appointments, medications, allergies reviewed. Previous Medical History PAST MEDICAL HISTORY Diagnosis Date Acute gastritis without mention of hemorrhage Arthritis of both hips 08/23/2015 Benign neoplasm of colon Dyslipidemia 01/22/2021 Fibromyalgia 03/25/2010 Incidental lung nodule, less than or equal to 3mm 10/19/2014 F/u not needed Inflammatory arthritis 03/26/2015 Insomnia 03/26/2015 Intrinsic asthma 10/31/2014 Lumbar degenerative disc disease 12/16/2010 Medicare annual wellness visit, subsequent 08/14/2021 Medicare Part B: Not able to find, Last done: 08/14/2021 Osteoporosis 12/10/2009 PMH - PAST MEDICAL HISTORY OF allergic rhinitis Postmenopausal atrophic vaginitis 11/03/2012 Psoriasis of nail 03/26/2015 Restless leg syndrome 03/25/2010 Spinal stenosis of lumbar region with radiculopathy 10/09/2016 Vitamin D deficiency 12/12/2009 Previous Surgical History PAST SURGICAL HISTORY Procedure Laterality Date COLSC FLX W/RMVL OF TUMOR POLYP LESION SNARE TQ 01/03/2008 Repeat in EGD TRANSORAL BIOPSY SINGLE/MULTIPLE 01/03/2008 EXC (more content not included)... [facility] 08-15-2022 Instructions Joan Hein MD - 08/15/2022 8:12 AM EST Please bring in copies of living davis and durable power of clip wrapper's for health care. For Lain[place] Dr. Bauer Recommend over the counter Astepro nasal spray. He can still use flonase. documented in this encounter [facility] 08-15-2022 History of Presen t illness Narrative Medicare Yearly Visit Medical B eligibilty date Not able to find Date of last exam 08/04/2021 PAST MEDICAL HISTORY PAST MEDICAL HISTORY Diagnosis Date Acute gastritis without mention of hemorrhage Arthritis of both hips 08/23/2015 Benign neoplasm of colon Dyslipidemia 01/22/2021 Fibromyalgia 03/25/2010 Incidental lung nodule, less than or equal to 3mm 10/19/2014 F/u not needed Inflammatory arthritis 03/26/2015 Insomnia 03/26/2015 Intrinsic asthma 10/31/2014 Lumbar degenerative disc disease 12/16/2010 Medicare annual wellness visit, subsequent 08/14/2021 Medicare Part B: Not able to find, Last done: 08/14/2021 Osteoporosis 12/10/2009 PMH - PAST MEDICAL HISTORY OF allergic rhinitis Postmenopausal atrophic vaginitis 11/03/2012 Psoriasis of nail 03/26/2015 Restless leg syndrome 03/25/2010 Spinal stenosis of lumbar region with radiculopathy 10/09/2016 Vitamin D deficiency 12/12/2009 PAST SURGICAL HISTORY PAST SURGICAL HISTORY Procedure Laterality Date COLSC FLX W/RMVL OF TUMOR POLYP LESION SNARE TQ 01/03/08 Repeat in EGD TRANSORAL BIOPSY SINGLE/MULTIPLE 01/03/08 PAST SURGICAL HISTORY OF 1980 deviated septum ALLERGIES: Mold, Penicillins, Pollen Extracts, and Sulfa (Sulfonamide Antibiotics) Medications reviewed: Yes FAMILY HISTORY FAMILY HISTORY Problem Relation Age of Onset Hypertension Mother Lipids Mother Heart Father irregular heart beat. SOCIAL HISTORY: SOCIAL HISTORY Social History Tobacco Use Smoking status: Never Smoker Smokeless tobacco: Never Used Substance Use Topics Alcohol use: Yes Comment: occasionally Drug use: No Lupis works out regularly 7 times per week with walking on treadmill and light weights. She watches her diet for sodium, low fat and low cholesterol generally not very much. List of current specialists seen: Dr. Seth Funez (oth[place]) Dr. Alves (pain management) End of Live Planning discussed including patients advanced directive wishes: Yes I am willing to follow Lupis's advanced directives. PHQ-2 / Depression screen Depression Screening 10/09/2016 11/10/2017 02/09/2019 08/15/2022 PHQ-2 Score 0 0 0 0 Depression screening tool completed and reviewed. Based on score and interview, patient is not at risk for depression. Screening tool discussed with patient, and I recommended no further intervention at this time. Functional Ability/Safety Screen 1. Was the patient's timed Up and Go test unsteady or longer than 30 seconds? No 2. Does the patient need help with the phone, transportation, shopping,preparing meals, housework, laundry, medications or managing money? No 3. Does your home have rugs in the hallway, lack of grab bars in the bathroom, lack of handrails on the stairs or have poor lighting? No Hearing Evaluation: normal PHYSICAL EXAM BP 110/70 (BP Site: Left Arm, BP Position: Sitting, BP Cuff Size: Regular Adult) Pulse 83 Resp 14 Ht 163.2 cm (5' 4.25 ) Wt 60.3 kg (133 lb) BMI 22.65 kg/m Alert and oriented X 3: YES Body mass index is 22.65 kg/m . Visual acuity: seeing optho See below ASSESSMENT/PLAN: 72 year old female The following prevention plan was discussed during the office visit and provided to the patient: See below Joan Hein MD Chief Complaint Patient presents with: Medicare Wellness Exam HPI Lupis Ramirez is a 72 year old female who presents here today for Medicare wellness. Patient with hx of asthma, HLP, inflammatory arthritis, RLS, insomnia, fibro, osteoporosis, chronic back pains and those as reviewed below. Patient has been doing ok. Had a cyst removed from the right pinkie. No new issues or concern. Past medical history, appointments, medications, allergies reviewed. Previous Medical History PAST MEDICAL HISTORY Diagnosis Date Acute gastritis without mention of hemorrhage Arthritis of both hips 08/23/2015 Benign neoplasm of colon Dyslipidemia 01/22/2021 Fibromyalgia 03/25/2010 Incidental lung nodule, less than or equal to 3mm 10/19/2014 F/u not needed Inflammatory arthritis 03/26/2015 Insomnia 03/26/2015 Intrinsic asthma 10/31/2014 Lumbar degenerative disc disease 12/16/2010 Medicare annual wellness visit, subsequent 08/14/2021 Medicare Part B: Not able to find, Last done: 08/14/2021 Osteoporosis 12/10/2009 PMH - PAST MEDICAL HISTORY OF allergic rhinitis Postmenopausal atrophic vaginitis 11/03/2012 Psoriasis of nail 03/26/2015 Restless leg syndrome 03/25/2010 Spinal stenosis of lumbar region with radiculopathy 10/09/2016 Vitamin D deficiency 12/12/2009 Previous Surgical History PAST SURGICAL HISTORY Procedure Laterality Date COLSC FLX W/RMVL OF TUMOR POLYP LESION SNARE TQ 01/03/2008 Repeat in EGD TRANSORAL BIOPSY SINGLE/MULTIPLE 01/03/2008 EXC LESION TDN SHTH/JT CAPSL HAND/FNGR Right 04/10/2022 Excision ganglion cyst right 5th finger PAST SURGICAL HISTORY OF 07/27/1979 deviated septum Family History FAMILY HISTORY Problem Relation Age of Onset Hypertension Mother Lipids Mother Heart Father irregular heart beat. Patient Allergies ALLERGIES Allergen Reactions Boniva [Ibandronate] GI Upset Increase in GERD Fosamax [Alendronat* GI Upset Increase heartburn/GI Mold Other: See Comments Nasal/sinus Penicillins Unknown Pollen Extracts Other: See Comments Nasal/sinus Sulfa (Sulfonamide * Unknown Current Medications Current Outpatient Medications on File Prior to Visit Medication Sig denosumab (PROLIA) 60 mg/mL 1 milliliter subcutaneously every 6 months. fluticasone (FLONASE) 50 mcg/actuation nasal spray instill 2 sprays into each nostril once daily montelukast (SINGULAIR) 10 mg tablet Take 1 tablet by mouth daily at bedtime. meloxicam (MOBIC) 7.5 mg tablet Take 1 tablet by mouth once daily. gabapentin (NEURONTIN) 300 mg capsule Take 1 capsule by mouth daily at bedtime for 180 days. triamcinolone acetonide (KENALOG) 0.1 % cream Apply 1 application to affected area twice daily. Apply to affected area. MELATONIN ORAL Take by mouth as directed. ketoconazole (NIZORAL) 2 % shampoo Apply to affected area every 72 hours. albuterol HFA (VENTOLIN HFA) 90 mcg/actuation inhaler Inhale 2 Puffs as instructed every 4 hours as needed for Wheezing/Shortness of Breath. VITAMIN B COMPLEX ORAL Take by mouth. L.ACID/L.CASEI/B.BIF/B.ROBIN/FOS (PROBIOTIC BLEND ORAL) Take by mouth. Calcium-Cholecalciferol, D3, 600 mg-10 mcg (400 unit) cap Take by mouth. folic acid 800 mcg ORAL Tab Take one(1) tablet daily. DAILY MULTIVITAMIN TAB Take one(1) tablet daily. Current Facility-Administered Medications on File Prior to Visit Medication denosumab 60 mg injection (PROLIA) Social History Social History Tobacco Use Smoking status: Never Smokeless tobacco: Never Vaping Use Vaping Use: Never used Substance Use Topics Alcohol use: Yes Comment: occasionally Drug use: No Review of Symptoms REVIEW OF SYSTEMS GENERAL: No weight loss, malaise or fevers HEENT: Negative for frequent or significant headaches, No changes in hearing or vision, slight congestion. Was having sinus pain and now just drainage and seems to be improving. Has some dizziness. NECK: Negative for lumps, goiter, pain and significant neck swelling. Sometimes gets a catching on the right posterior neck and then a sharp pain and stops. RESPIRATORY: Negative for hemoptysis, wheezing, COPD, dyspnea or shortness of breath. Has a slight non-productive cough. CARDIOVASCULAR: Negative for chest pain, leg swelling, hypertension, CHF or palpitations GI: No nausea, vomiting, or diarrhea, No heartburn or reflux symptoms, and no blood : No history of dysuria, blood MUSCULOSKELETAL: Negative for new or changes in her typical joint pain or swelling, back pain or muscle pain SKIN: Negative for lesions, rash, and itching PSYCH: Negative for sleep disturbance, mood disorder and recent psychosocial stressors HEMATOLOGY/LYMPHOLOGY: Negative for prolonged bleeding, bruising easily or swollen nodes ENDOCRINE: Negative for cold or heat intolerance, polyuria, polydipsia and goiter NEURO: No history of headaches, syncope, paralysis, seizures or tremors EXAM: BP 110/70 (BP Site: Left Arm, BP Position: Sitting, BP Cuff Size: Regular Adult) Pulse 83 Resp 14 Ht 163.2 cm (5' 4.25 ) Wt 60.3 kg (133 lb) BMI 22.65 kg/m General Appearance: Well appearing, alert, in no acute distress, well-hydrated, well nourished. and Thin. Skin: Skin color, texture, turgor normal, no suspicious rashes or lesions. Head: Normocephalic, no masses, lesions, tenderness or abnormalities. Eyes: Anicteric sclera. Pupils are equally round and reactive to light. Extraocular movements are intact. . Ears: External ears, TM's normal, canals clear. Neck: Supple, no adenopathy; thyroid symmetric, normal size, no bruits. Lungs: Lungs clear to auscultation. No wheezing, rhonchi, rales.. Heart: RRR without murmur, gallop, or rubs. No ectopy. Abdomen: Normal abdominal exam, Abdomen soft, non-tender. Bowel sounds normal. No masses, organomegaly. Extremities: No deformities, edema, skin discoloration, Good capillary refill. . Musculoskeletal:Muscular strength intact, No joint swelling, deformity, or tenderness. Peripheral Pulses: Normal. Neurologic: Gait normal. Reflexes normal and symmetric. Sensation to light touch and crainal nerves 2-12 intact.. Health Maintenance List SHINGRIX VACCINE(3 of 3) due on 03/19/2021 COVID-19 VACCINE(5 - Booster for Moderna series) due on 12/30/2021 ADVANCE DIRECTIVE DISCUSSION Never done DEPRESSION ASSESSMENT Never done ANNUAL PCP TEAM CHRONIC DISEASE VISIT due on 01/28/2023 DIABETES SCREEN due on 02/24/2025 LIPID SCREEN due on 02/24/2027 DTAP,TDAP,TD(2 - Td or Tdap) due on 02/09/2029 BONE DENSITY Completed SPIROMETRY Completed INFLUENZA Completed PNEUMOCOCCAL: 65+ Completed MAMMOGRAM Discontinued COLORECTAL CANCER SCREENING Discontinued HEPATITIS C SCREENING Discontinued Data reviewed Component Latest Ref Rng & Units 02/24/2022 WBC 3.70 - 11.00 k/uL 6.26 RBC 3.90 - 5.20 m/uL 4.17 Hemoglobin 11.5 - 15.5 g/dL 12.4 Hematocrit 36.0 - 46.0 % 37.6 MCV 80.0 - 100.0 fL 90.2 MCH 26.0 - 34.0 pg 29.7 MCHC 30.5 - 36.0 g/dL 33.0 RDW-CV 11.5 - 15.0 % 13.4 Platelet Count 150 - 400 k/uL 272 MPV 9.0 - 12.7 fL 9.1 Neut% % 55.9 Abs Neut (ANC) 1.45 - 7.50 k/uL 3.50 Lymph% % 34.7 Abs Lymph 1.00 - 4.00 k/uL 2.17 Livingston% % 5.6 Abs Livingston <0.87 k/uL 0.35 Eosin% % 2.7 Abs Eosin <0.46 k/uL 0.17 Baso% % 1.1 Abs Baso <0.11 k/uL 0.07 Immature Gran % % 0.0 IMMATURE GRANS (ABS) <0.10 k/uL <0.03 NRBC /100 WBC 0.0 Absolute nRBC <0.01 k/uL <0.01 DTYPE Auto Protein, Total 6.3 - 8.0 g/dL 7.0 Albumin 3.9 - 4.9 g/dL 4.4 Calcium 8.5 - 10.2 mg/dL 8.6 Bilirubin, Total 0.2 - 1.3 mg/dL 0.5 Alkaline Phosphatase 34 - 123 U/L 74 AST 13 - 35 U/L 22 ALT 7 - 38 U/L 12 Glucose 74 - 99 mg/dL 103 (H) BUN 7 - 21 mg/dL 18 Creatinine 0.58 - 0.96 mg/dL 0.70 Sodium 136 - 144 mmol/L 139 Potassium 3.7 - 5.1 mmol/L 4.2 Chloride 97 - 105 mmol/L 103 CO2 22 - 30 mmol/L 22 Anion Gap 9 - 18 mmol/L 14 eGFR >=60 mL/min/1.73m 93 Total Cholesterol, Nonfasting <200 mg/dL 253 (H) Triglycerides, Nonfasting <150 mg/dL 78 HDL Cholesterol, Nonfasting >39 mg/dL 87 LDL Cholesterol, Nonfasting <100 mg/dL 150 (H) Non HDL Cholesterol, Nonfasting <130 mg/dL 166 (H) VLDL Cholesterol, Nonfasting <30 mg/dL 16 Total Chol/HDL Ratio, Nonfasting <5.10 mg/dL 2.91 LDL/HDL Ratio, Nonfasting <2.54 mg/dL 1.72 Vitamin D 25 Hydroxy 31.0 - 80.0 ng/mL 33.9 A/P ASSESSMENT/PLAN: 1. Medicare annual wellness visit, subsequent - ICD9: V70.0, ICD10: Z00.00 (primary diagnosis) - Counseled on healthy diet and regular exercise - Calcium intake with supplements or by diet of 1000 mg/day for under 50, 2562-2005 mg/day for 50+ - Follow up for annual exam in one year 2. Dyslipidemia - ICD9: 272.4, ICD10: E78.5 - to be determined upon return of lab results - Encouraged following a low fat, low cholesterol diet. - Discussed the benefits of regular aerobic exercise and weight loss. - Encouraged following a low carbohydrate, healthy oil intake diet. - Continue current therapy. Check - COMP METABOLIC PANEL - URINALYSIS, WITH MICROSCOPIC - LIPID PANEL, NONFASTING 3. Intrinsic asthma - ICD9: 493.10, ICD10: J45.909 Mild intermittent Asthma stable - Avoidance of triggers recommended 4. Vitamin D deficiency - ICD9: 268.9, ICD10: E55.9 Cont daily intake. Check - VITAMIN D 25 HYDROXY 5. Restless leg syndrome - ICD9: 333.94, ICD10: G25.81 Stable no changes. - COMP METABOLIC PANEL 6. Insomnia, unspecified type - ICD9: 780.52, ICD10: G47.00 - stable no changes. 7. Fibromyalgia - ICD9: 729.1, ICD10: M79.7 - stable no changes. - CBC + DIFF 8. Lumbar degenerative disc disease - ICD9: 722.52, ICD10: M51.36 - management per Ortho and pain management 9. Medication management - ICD9: V58.69, ICD10: Z79.899 Check - CBC + DIFF 10. Advance directive discussed with patient - ICD9: V65.49, ICD10: Z71.89 - patient to bring in copies. 11. Neck pain - ICD9: 723.1, ICD10: M54.2 - muscular in nature. Discussed a HEP 12. Viral sinusitis - ICD9: 473.9, 079.99, ICD10: J32.9, B97.89 - Discussed viral etiology and rationale for treatment. - Symptomatic treatment with prn analgesia - Supportive care with fluids and rest - if not continuing to improve or getting worse in the next week patient is to contact office and will treat with course of antibiotics. Requested Prescriptions Signed Prescriptions Disp Refills montelukast (SINGULAIR) 10 mg tablet 30 tablet 5 Sig: Take 1 tablet by mouth daily at bedtime. meloxicam (MOBIC) 7.5 mg tablet 90 tablet 1 Sig: Take 1 tablet by mouth once daily. gabapentin (NEURONTIN) 300 mg capsule 30 capsule 5 Sig: Take 1 capsule by mouth daily at bedtime for 180 days. F/u 6 months routine I spent a total of 40 minutes on the date of the service which included preparing to see the patient, [id number] patient care, completing clinical documentation, performing a medically appropriate examination, counseling and educating the patient/family/caregiver and ordering medications, tests, or procedures. Joan Hein MD documented in this encounter [facility] 07-25-2022 Miscellaneous Notes Patient signed medical release form. Operative note faxed. Release form scanned into [employer]. Phone call to patient. Advised patient to sign release of medical records prior to faxing report. Patient to stop in office and sign release. Release placed at Ortho/Podi/PT PSS desk. Patient is requesting the procedure notes from her surgery on 04/10/[address] Burgess. Please fax to [facility] at [phone] attn: Maya Mohan. documented in this encounter [facility] 07-16-2022 Note HNO ID: [id number] Author: Susanne West LPN Service: ? Author Type: ? Type: Progress Notes Filed: 07/16/2022 9:48 AM Note Text: Patient presents for Prolia injection. Denies any problems at this time. Brought own medication. Patient instructed on any SE of medication, verbalized understanding and agreed to proceed with treatment. Tolerated injection well. Susanne West LPN [facility] 07-16-2022 History of Presen t illness Narrative Patient presents for Prolia injection. Denies any problems at this time. Brought own medication. Patient instructed on any SE of medication, verbalized understanding and agreed to proceed with treatment. Tolerated injection well. Susanne West LPN documented in this encounter [facility] 07-07-2022 Miscellaneous Notes The following approved medication requests have been transmitted electronically. Requested Prescriptions Signed Prescriptions Disp Refills denosumab (PROLIA) 60 mg/mL 1 mL 1 Si milliliter subcutaneously every 6 months. Authorizing Provider: JOAN HEIN MD Patient has been identified by name and date of : Yes Requested Prescriptions Pending Prescriptions Disp Refills denosumab (PROLIA) 60 mg/mL 1 mL 1 Si milliliter subcutaneously every 6 months. RX INSTRUCTIONS: Patient aware RX will be sent to pharmacy. No need to notify patient. Felicia Love MA Asim: 01/2022 Nov: 07/2022 Last refill: 01/2021 documented in this encounter [facility] 07-07-2022 History of Presen t illness Narrative Jose A Burgess MD Department of Orthopaedics Orthopaedics [address] [facility] [address] Dept: [phone] Dept July 07, 2022 CHIEF COMPLAINT: Established Patient and Blister of the Right Hand HPI Patient here today for right 5th finger blister . She is s/p excision ganglion cyst right 5th finger on 04/10/2022. She reports the blister has been there for about a month. ASSESSMENT: M67.441 Ganglion cyst of finger of right hand (primary encounter diagnosis) PLAN: Recollection had recurrence of the ganglion over the PIP joint. We had a discussion about her options. Certainly we can repeat surgical procedure under local if she would like to. She will let us know if she has any issues with it. Ms. Lupis Ramirez was advised as to contrast therapies and/or to take analgesics/anti-inflammatories as needed and all contraindications were reviewed. OBJECTIVE: Ms. Lupis Ramirez is a pleasant 72 year old in no apparent distress. Gen:There were no vitals taken for this visit. nl development, non obese, no deformities ENT: Normocephalic, normal hearing, moist mucosa CV: Pulses:Radial= 2+ and symmetric, capillary refill < 2 secs, no peripheral edema/varicosities Skin: no rash, bruising or lesions. Good turgor. Psych: cooperative and appropriate, alert and oriented x 3, good mood and affect. Musculoskeletal: Obvious ganglion cyst over the PIP joint. Little bit of pinkness but no signs of infection, likely secondary to the thinner skin. Supporting Subjective Information Below: Past Surgical History: PAST SURGICAL HISTORY Procedure Laterality Date COLSC FLX W/RMVL OF TUMOR POLYP LESION SNARE TQ 01/03/2008 Repeat in EGD TRANSORAL BIOPSY SINGLE/MULTIPLE 01/03/2008 EXC LESION TDN SHTH/JT CAPSL HAND/FNGR Right 04/10/2022 Excision ganglion cyst right 5th finger PAST SURGICAL HISTORY OF 07/27/1979 deviated septum Medications: Current Outpatient Medications Medication Sig fluticasone (FLONASE) 50 mcg/actuation nasal spray instill 2 sprays into each nostril once daily montelukast (SINGULAIR) 10 mg tablet Take 1 tablet by mouth daily at bedtime. meloxicam (MOBIC) 7.5 mg tablet Take 1 tablet by mouth once daily. gabapentin (NEURONTIN) 300 mg capsule Take 1 capsule by mouth daily at bedtime for 180 days. triamcinolone acetonide (KENALOG) 0.1 % cream Apply 1 application to affected area twice daily. Apply to affected area. MELATONIN ORAL Take by mouth as directed. ketoconazole (NIZORAL) 2 % shampoo Apply to affected area every 72 hours. denosumab (PROLIA) 60 mg/mL 1 milliliter subcutaneously every 6 months. albuterol HFA (VENTOLIN HFA) 90 mcg/actuation inhaler Inhale 2 Puffs as instructed every 4 hours as needed for Wheezing/Shortness of Breath. VITAMIN B COMPLEX ORAL Take by mouth. L.ACID/L.CASEI/B.BIF/B.ROBIN/FOS (PROBIOTIC BLEND ORAL) Take by mouth. Calcium-Cholecalciferol, D3, 600 mg-10 mcg (400 unit) cap Take by mouth. folic acid 800 mcg ORAL Tab Take one(1) tablet daily. DAILY MULTIVITAMIN TAB Take one(1) tablet daily. Current Facility-Administered Medications Medication Dose Route Frequency [START ON 07/16/2022] denosumab 60 mg injection (PROLIA) 60 mg SUBCUTANEOUS Q 6 MONTH Allergies: Mold, Penicillins, Pollen Extracts, and Sulfa (Sulfonamide Antibiotics) ROS: General (negative for fatigue, malaise, weight loss/gain) HEENT (negative for headache, earache, recent vision changes, sinus pain, sore throat) Respiratory (no recent shortness of breath, hemoptysis) CV (negative for chest tightness, palpitations) Musculoskeletal (see HPI) Psych (no depression, anxiety) Jose A Burgess, MD documented in this encounter [facility] 07-02-2022 Miscellaneous Notes Patient has been contacted and appointment moved to 07/07/2022. Pt scheduled an appt for 07/17/22, the soonest appt available at the time of call. She states she is having pain at the site of her surgery done in March along with what looks like a water blister and some redness. She was concerned she should be seen sooner. documented in this encounter [facility] 06-30-2022 Miscellaneous Notes done Patient scheduled for nurse visit 07/16/22 to receive Prolia injection. Please place new administration order at this time. Susanne West LPN documented in this encounter [facility] 06-07-2022 Miscellaneous Notes The following approved medication requests have been transmitted electronically. Requested Prescriptions Signed Prescriptions Disp Refills fluticasone (FLONASE) 50 mcg/actuation nasal spray 48 g 11 Sig: instill 2 sprays into each nostril once daily Authorizing Provider: JOAN HEIN MD Patient phones requesting refills as follows: Requested Prescriptions Pending Prescriptions Disp Refills fluticasone (FLONASE) 50 mcg/actuation nasal spray 48 g 11 Sig: instill 2 sprays into each nostril once daily ASIM 01/28/22 NOV 08/15/22 Please review and advise. Bryan Faustin LPN documented in this encounter [facility] 04-21-2022 History of Presen t illness Narrative Anna Delcid PA-C Department of Orthopaedics Orthopaedics [address] [facility] [address] Dept: [phone] Dept April 21, 2022 CHIEF COMPLAINT: Established Patient and Post Op of the Right Hand (1wk 4days postop excision ganglion cyst right 5th finger). ASSESSMENT: M67.441 Ganglion cyst of finger of right hand (primary encounter diagnosis) SUMMARY/PLAN: Patient presents 1 week and 4 days status post excision of right fifth digit ganglion cyst. She is doing very well and denies any pain today. We discussed proper hand washing, no soaking of the operative hand. No heavy lifting, pushing or pulling with the operative hand, encourage gentle motion. We discussed scar massage. Follow up as planned. Exam: Incision site is well approximated without erythema or drainage. There is mild but appropriate edema of the right pinky digit. Patient is able to form a composite fist and extend all digits. Imaging: Deferred today. Ms. Lupis Ramirez was advised as to contrast therapies and/or to take analgesics/anti-inflammatories as needed and all contraindications were reviewed. Supporting Information Below: Medications: Current Outpatient Medications Medication Sig montelukast (SINGULAIR) 10 mg tablet Take 1 tablet by mouth daily at bedtime. meloxicam (MOBIC) 7.5 mg tablet Take 1 tablet by mouth once daily. gabapentin (NEURONTIN) 300 mg capsule Take 1 capsule by mouth daily at bedtime for 180 days. triamcinolone acetonide (KENALOG) 0.1 % cream Apply 1 application to affected area twice daily. Apply to affected area. MELATONIN ORAL Take by mouth as directed. ketoconazole (NIZORAL) 2 % shampoo Apply to affected area every 72 hours. denosumab (PROLIA) 60 mg/mL 1 milliliter subcutaneously every 6 months. fluticasone (FLONASE) 50 mcg/actuation nasal spray instill 2 sprays into each nostril once daily albuterol HFA (VENTOLIN HFA) 90 mcg/actuation inhaler Inhale 2 Puffs as instructed every 4 hours as needed for Wheezing/Shortness of Breath. VITAMIN B COMPLEX ORAL Take by mouth. L.ACID/L.CASEI/B.BIF/B.ROBIN/FOS (PROBIOTIC BLEND ORAL) Take by mouth. Calcium-Cholecalciferol, D3, 600 mg-10 mcg (400 unit) cap Take by mouth. folic acid 800 mcg ORAL Tab Take one(1) tablet daily. DAILY MULTIVITAMIN TAB Take one(1) tablet daily. No current facility-administered medications for this visit. Allergies: Mold, Penicillins, Pollen Extracts, and Sulfa (Sulfonamide Antibiotics) This note was partially generated using [employer] voice recognition system, and there may be some incorrect words, spellings, and punctuation that were not noted in checking the note before saving. Anna Delcid PA-C Patient presents with: Right Hand - Established Patient, Post Op: 1wk 4days postop excision ganglion cyst right 5th finger AMB ROOMING INTAKE FLOWSHEET DATA Risk Screening Do you have concerns about personal safety or safety in the home?: No Patient is here 1wk 4days postop ganglion cyst removal right 5th finger. Patient states everything is healing well and she is not having any pain. documented in this encounter [facility] 03-10-2022 Miscellaneous Notes Patient notified and voiced understanding. Felicia Love MA Let patient know that bone density still shows osteoporosis however has improved. Continue prolia. Chrystal Mariee PA-C documented in this encounter [facility] 03-10-2022 Miscellaneous Notes PDMP website checked and validated. All prescriptions have been APPROPRIATELY filled. No suspicious activity was identified. 03/10/2022 by Ginny Frey APRN.CNP The following approved medication requests have been transmitted electronically. Requested Prescriptions Signed Prescriptions Disp Refills montelukast (SINGULAIR) 10 mg tablet 30 tablet 5 Sig: Take 1 tablet by mouth daily at bedtime. Authorizing Provider: JOAN HEIN Ordering User: GINNY FREY meloxicam (MOBIC) 7.5 mg tablet 90 tablet 1 Sig: Take 1 tablet by mouth once daily. Authorizing Provider: JOAN HEIN Ordering User: GINNY FREY gabapentin (NEURONTIN) 300 mg capsule 30 capsule 5 Sig: Take 1 capsule by mouth daily at bedtime for 180 days. Authorizing Provider: JOAN HEIN Ordering User: GINNY FREY APRN.CNP Patient has been identified by name and date of : Yes Requested Prescriptions Pending Prescriptions Disp Refills montelukast (SINGULAIR) 10 mg tablet 30 tablet 5 Sig: Take 1 tablet by mouth daily at bedtime. meloxicam (MOBIC) 7.5 mg tablet 90 tablet 1 Sig: Take 1 tablet by mouth once daily. gabapentin (NEURONTIN) 300 mg capsule 30 capsule 5 Sig: Take 1 capsule by mouth daily at bedtime for 180 days. RX INSTRUCTIONS: Patient aware RX will be sent to pharmacy. No need to notify patient. Felicia Love MA Asim: 01/2022 Nov: 07/2022 Last refill: 08/2021 documented in this encounter [facility] 03-10-2022 History of Presen t illness Narrative Radiology Service Progress Note PATIENT NAME: Lupis Ramirez DATE OF SERVICE: March 10, 2022 TIME: 9:32 AM PATIENT IDENTITY VERIFICATION COMPLETED USING TWO (2) IDENTIFIERS: Name and Date of confirmed by patient verbally. FALL SCREENING: Has the patient had 2 falls in the last year or 1 fall with injury or currently using an Ambulatory Assistive Device (Walker, Cane, Wheelchair, Crutches, etc.)? No PATIENT GENDER DATA: Female. status: : No status: NO. PATIENT RELEVANT IMPLANT DATA REVIEWED: Not Applicable RADIOLOGY DEPARTMENT: Bone Density PERIPHERAL IV DATA: Not applicable SIGNED BY: RT Inés(R) March 10, 2022 9:32 AM documented in this encounter [facility] 02-28-2022 Miscellaneous Notes Surgery has been scheduled as requested. Patient scheduled for Right 5th finger excision ganglion cyst on 04/10/22. Surgical request completed. Post op appointment scheduled and mailed to patient. documented in this encounter [facility] 02-25-2022 Miscellaneous Notes Noted. Chrystal Mariee PA-C Call to pt and notified of message below. Verbalized understanding. Pt ate about 30 minutes before completing labs. Ruchi Domínguez Ma Let patient know that cholesterol Is high. LDL at 150 with goal of 100. Glucose was 103. Was she fasting? Rest of labs are normal. Watch diet. documented in this encounter [facility] 02-20-2022 History of Presen t illness Narrative Patient presents with: Right Hand - New, Pain: 5th finger Jose A Burgess MD Department of Orthopaedics Orth[facility] [address] [place] [address] Dept: [phone] Dept February 20, 2022 Consultation requested by Chrystal PIPER for an opinion regarding finger cyst. My final recommendations will be communicated back to the requesting physician by way of shared Medical record or letter to requesting physician via [place] mail. CHIEF COMPLAINT: New and Pain of the Right Hand (5th finger ) HPI Pt states cyst is more painful with movement of the right hand. Pt is right hand dominant. AMB ROOMING INTAKE FLOWSHEET DATA Risk Screening Do you have concerns about personal safety or safety in the home?: No Pain Pain Level: 0 Pain Location: Hand-Right (5th finger) Description: Dull, Aching Duration Amount of Time: 6 Duration Units: Months Frequency: Intermittent ASSESSMENT: M67.40 Ganglion cyst PLAN: We discussed different treatment options. The risks, benefits, alternatives and potential complications were reviewed. She would like to pursue excision of the ganglion. FOLLOW UP INSTRUCTIONS: As above Ms. Lupis Ramirez was advised as to contrast therapies and/or to take analgesics/anti-inflammatories as needed and all contraindications were reviewed. OBJECTIVE: Ms. Lupis Ramirez is a pleasant 72 year old in no apparent distress. Gen:There were no vitals taken for this visit. nl development, non obese, no deformities ENT: Normocephalic, normal hearing, moist mucosa CV: Pulses:Radial= 2+ and symmetric, capillary refill < 2 secs, no peripheral edema/varicosities Skin: no rash, bruising or lesions. Good turgor. Psych: cooperative and appropriate, alert and oriented x 3, good mood and affect. Musculoskeletal: Right hand, small finger, over the PIP. Ganglion cyst. IMAGING: Deferred today Supporting Subjective Information Below: Past Medical History: PAST MEDICAL HISTORY Diagnosis Date Acute gastritis without mention of hemorrhage Arthritis of both hips 08/23/2015 Benign neoplasm of colon Dyslipidemia 01/22/2021 Fibromyalgia 03/25/2010 Incidental lung nodule, less than or equal to 3mm 10/19/2014 F/u not needed Inflammatory arthritis 03/26/2015 Insomnia 03/26/2015 Intrinsic asthma 10/31/2014 Lumbar degenerative disc disease 12/16/2010 Medicare annual wellness visit, subsequent 08/14/2021 Medicare Part B: Not able to find, Last done: 08/14/2021 Osteoporosis 12/10/2009 PMH - PAST MEDICAL HISTORY OF allergic rhinitis Postmenopausal atrophic vaginitis 11/03/2012 Psoriasis of nail 03/26/2015 Restless leg syndrome 03/25/2010 Spinal stenosis of lumbar region with radiculopathy 10/09/2016 Vitamin D deficiency 12/12/2009 Past Surgical History: PAST SURGICAL HISTORY Procedure Laterality Date COLSC FLX W/RMVL OF TUMOR POLYP LESION SNARE TQ 01/03/08 Repeat in EGD TRANSORAL BIOPSY SINGLE/MULTIPLE 01/03/08 PAST SURGICAL HISTORY OF 1980 deviated septum Family History: FAMILY HISTORY Problem Relation Age of Onset Hypertension Mother Lipids Mother Heart Father irregular heart beat. Social History: Social History Tobacco Use Smoking status: Never Smoker Smokeless tobacco: Never Used Vaping Use Vaping Use: Never used Substance Use Topics Alcohol use: Yes Comment: occasionally Drug use: No Medications: Current Outpatient Medications Medication Sig triamcinolone acetonide (KENALOG) 0.1 % cream Apply 1 application to affected area twice daily. Apply to affected area. MELATONIN ORAL Take by mouth as directed. ketoconazole (NIZORAL) 2 % shampoo Apply to affected area every 72 hours. gabapentin (NEURONTIN) 300 mg capsule Take 1 capsule by mouth daily at bedtime for 180 days. meloxicam (MOBIC) 7.5 mg tablet Take 1 tablet by mouth once daily. montelukast (SINGULAIR) 10 mg tablet Take 1 tablet by mouth daily at bedtime. denosumab (PROLIA) 60 mg/mL 1 milliliter subcutaneously every 6 months. fluticasone (FLONASE) 50 mcg/actuation nasal spray instill 2 sprays into each nostril once daily albuterol HFA (VENTOLIN HFA) 90 mcg/actuation inhaler Inhale 2 Puffs as instructed every 4 hours as needed for Wheezing/Shortness of Breath. VITAMIN B COMPLEX ORAL Take by mouth. L.ACID/L.CASEI/B.BIF/B.ROBIN/FOS (PROBIOTIC BLEND ORAL) Take by mouth. Calcium-Cholecalciferol, D3, (CALCIUM 600 WITH VITAMIN D3) 600 mg(1,500mg) -400 unit cap Take by mouth. folic acid 800 mcg ORAL Tab Take one(1) tablet daily. DAILY MULTIVITAMIN TAB Take one(1) tablet daily. No current facility-administered medications for this visit. Allergies: Mold, Penicillins, Pollen Extracts, and Sulfa (Sulfonamide Antibiotics) ROS: General (negative for fatigue, malaise, weight loss/gain) HEENT (negative for headache, earache, recent vision changes, sinus pain, sore throat) Respiratory (no recent shortness of breath, hemoptysis) CV (negative for chest tightness, palpitations) Musculoskeletal (see HPI) Psych (no depression, anxiety) REFERRING PHYSICIAN: Ms. Lupis Ramirez was referred to me for consultation by the following physician. This consultation note will be sent to the following physician by either mail or electronic medical record. Chrystal Mariee [address] [facility] [id number] Joan Hein MD [address] [facility] [id number] Jose A Burgess MD documented in this encounter [facility] 01-28-2022 Instructions Chrystal Mariee PA-C - 01/28/2022 7:46 AM EDT BONE MINERAL DENSITY PATIENT INSTRUCTIONS ========= Bone mineral density testing measures the amount of calcium in certain parts of your bones. This information determines how strong your bones are. The test is used to detect osteoporosis, a disease in which the bone's mineral content and density are low, increasing a person's risk of fractures. The lumbar spine (lower back) and the hip are the skeletal sites usually examined. For the test, remember that: 1. You cannot take this test if you are . 2. Eat a normal diet on the day of the test. 3. Take your medications as you normally would. 4. DO NOT take calcium supplements (such as Tums) for 24 hours before the test. 5. On the day of the test, leave valuables (jewelry or credit cards) at home. 6. The test should be performed prior to oral, rectal or IV contrast studies, or at least 7 days after any of these studies. For the test, you may be asked to wear a hospital gown. You will lie on your back, on a padded table, in a comfortable position. Generally, you can resume your usual activities immediately. documented in this encounter [facility] 01-28-2022 History of Presen t illness Narrative Chief Complaint Patient presents with: F/U 6 Month HPI Lupis Ramirez is a 71 year old female who presents here today for Chronic Medical Conditions.. Patient with hx of asthma, HLP, inflammatory arthritis, RLS, insomnia, fibro, osteoporosis, chronic back pains and those as below. Patient overall doing okay. Cyst on Right 5th digit is getting larger. Does have a rash on her legs after doing some yard work. Has been improving. Past medical history, appointments, medications, allergies reviewed. Previous Medical History PAST MEDICAL HISTORY Diagnosis Date Acute gastritis without mention of hemorrhage Arthritis of both hips 08/23/2015 Benign neoplasm of colon Dyslipidemia 01/22/2021 Fibromyalgia 03/25/2010 Incidental lung nodule, less than or equal to 3mm 10/19/2014 F/u not needed Inflammatory arthritis 03/26/2015 Insomnia 03/26/2015 Intrinsic asthma 10/31/2014 Lumbar degenerative disc disease 12/16/2010 Medicare annual wellness visit, subsequent 08/14/2021 Medicare Part B: Not able to find, Last done: 08/14/2021 Osteoporosis 12/10/2009 PMH - PAST MEDICAL HISTORY OF allergic rhinitis Postmenopausal atrophic vaginitis 11/03/2012 Psoriasis of nail 03/26/2015 Restless leg syndrome 03/25/2010 Spinal stenosis of lumbar region with radiculopathy 10/09/2016 Vitamin D deficiency 12/12/2009 Previous Surgical History PAST SURGICAL HISTORY Procedure Laterality Date COLSC FLX W/RMVL OF TUMOR POLYP LESION SNARE TQ 01/03/08 Repeat in EGD TRANSORAL BIOPSY SINGLE/MULTIPLE 01/03/08 PAST SURGICAL HISTORY OF 1980 deviated septum Family History FAMILY HISTORY Problem Relation Age of Onset Hypertension Mother Lipids Mother Heart Father irregular heart beat. Patient Allergies ALLERGIES Allergen Reactions Mold Other: See Comments Nasal/sinus Penicillins Unknown Pollen Extracts Other: See Comments Nasal/sinus Sulfa (Sulfonamide * Unknown Current Medications Current Outpatient Medications on File Prior to Visit Medication Sig MELATONIN ORAL Take by mouth as directed. ketoconazole (NIZORAL) 2 % shampoo Apply to affected area every 72 hours. gabapentin (NEURONTIN) 300 mg capsule Take 1 capsule by mouth daily at bedtime for 180 days. meloxicam (MOBIC) 7.5 mg tablet Take 1 tablet by mouth once daily. montelukast (SINGULAIR) 10 mg tablet Take 1 tablet by mouth daily at bedtime. denosumab (PROLIA) 60 mg/mL 1 milliliter subcutaneously every 6 months. fluticasone (FLONASE) 50 mcg/actuation nasal spray instill 2 sprays into each nostril once daily albuterol HFA (VENTOLIN HFA) 90 mcg/actuation inhaler Inhale 2 Puffs as instructed every 4 hours as needed for Wheezing/Shortness of Breath. VITAMIN B COMPLEX ORAL Take by mouth. L.ACID/L.CASEI/B.BIF/B.ROBIN/FOS (PROBIOTIC BLEND ORAL) Take by mouth. Calcium-Cholecalciferol, D3, (CALCIUM 600 WITH VITAMIN D3) 600 mg(1,500mg) -400 unit cap Take by mouth. folic acid 800 mcg ORAL Tab Take one(1) tablet daily. DAILY MULTIVITAMIN TAB Take one(1) tablet daily. No current facility-administered medications on file prior to visit. Social History Social History Tobacco Use Smoking status: Never Smoker Smokeless tobacco: Never Used Vaping Use Vaping Use: Never used Substance Use Topics Alcohol use: Yes Comment: occasionally Drug use: No Review of Symptoms REVIEW OF SYSTEMS GENERAL: No weight loss, malaise or fevers NECK: Negative for lumps, goiter, pain and significant neck swelling RESPIRATORY: Negative for cough, hemoptysis, wheezing, COPD, dyspnea or shortness of breath CARDIOVASCULAR: Negative for chest pain, leg swelling, hypertension, CHF or palpitations NEURO: No history of headaches, syncope, paralysis, seizures or tremors EXAM: BP 106/70 (BP Site: Left Arm, BP Position: Sitting, BP Cuff Size: Regular Adult) Pulse 68 Temp 36.3 C (97.3 F) Resp 16 Wt 60.3 kg (133 lb) BMI 22.03 kg/m General Appearance: Well appearing, alert, in no acute distress, well-hydrated, well nourished.. Neck: Supple, no adenopathy; thyroid symmetric, normal size, no bruits. Lungs: Lungs clear to auscultation. No wheezing, rhonchi, rales.. Heart: RRR without murmur, gallop, or rubs. No ectopy. Extremities: No deformities, edema, skin discoloration, clubbing or cyanosis. Good capillary refill. . Peripheral Pulses: Normal. Health Maintenance List SHINGRIX VACCINE(3 of 3) due on 03/19/2021 ADVANCE DIRECTIVE DISCUSSION Never done COLORECTAL CANCER SCREENING due on 01/22/2022 INFLUENZA(1) due on 03/27/2022 ANNUAL PCP TEAM CHRONIC DISEASE VISIT due on 01/28/2023 DIABETES SCREEN due on 01/22/2024 LIPID SCREEN due on 08/15/2026 DTAP,TDAP,TD(2 - Td or Tdap) due on 02/09/2029 BONE DENSITY Completed SPIROMETRY Completed COVID-19 VACCINE Completed PNEUMOCOCCAL: 65+ Completed MAMMOGRAM Discontinued HEPATITIS C SCREENING Discontinued DEPRESSION SCREENING Discontinued Data reviewed ASSESSMENT/PLAN: 1. Dyslipidemia - ICD9: 272.4, ICD10: E78.5 (primary diagnosis) Await labs - Encouraged following a low carbohydrate, healthy oil intake diet. - Continue current therapy. - LIPID PANEL, NONFASTING - CBC + DIFF 2. Insomnia, unspecified type - ICD9: 780.52, ICD10: G47.00 stable 3. Lumbar degenerative disc disease - ICD9: 722.52, ICD10: M51.36 Continue with pain management 4. Osteoporosis, unspecified osteoporosis type, unspecified pathological fracture presence - ICD9: 733.00, ICD10: M81.0 - Reviewed the need for Calcium and Vitamin D supplements and weight bearing exercise as tolerated - DXA-AXIAL SKELETON 5. Inflammatory arthritis - ICD9: 714.9, ICD10: M19.90 stable 6. Screening for colon cancer - ICD9: V76.51, ICD10: Z12.11 7. Restless leg syndrome - ICD9: 333.94, ICD10: G25.81 stable 8. Intrinsic asthma - ICD9: 493.10, ICD10: J45.909 stable 9. Fibromyalgia - ICD9: 729.1, ICD10: M79.7 - COMP METABOLIC PANEL 10. Vitamin D deficiency - ICD9: 268.9, ICD10: E55.9 - VITAMIN D 25 HYDROXY 11. Ganglion cyst - ICD9: 727.43, ICD10: M67.40 - CONSULT TO ORTHOPAEDICS 12. Age-related osteoporosis without current pathological fracture - ICD9: 733.01, ICD10: M81.0 - Reviewed the need for Calcium and Vitamin D supplements and weight bearing exercise as tolerated Chrystal Mariee PA-C documented in this encounter [facility] 01-14-2022 History of Presen t illness Narrative Patient presents for Prolia injection. Denies any problems at this time. Brought own medication. Patient instructed on any SE of medication, verbalized understanding and agreed to proceed with treatment. Tolerated injection well. Susanne West LPN documented in this encounter [facility] 12-17-2021 History of Presen t illness Narrative Chief Complaint Patient presents with: Derm Problem: cyst? on right fifth digit HPI Lupis Ramirez is a 71 year old female who presents here today for Above Complaints.. Patient has had a lump on her R fifth digit on the PIP joint. Has arthritic changes but then area swollen and was more tender which is when she called for the appointment. Since then has improved. This is first time she had this. Rash on scalp. Itchy. Flakes. Started around left ear and now more in her hair. Patient also hx of fibro. Has had some increased symptoms. On Thursday she was feeling more stress and had all over body pain and brain fog. Past medical history, appointments, medications, allergies reviewed. Previous Medical History PAST MEDICAL HISTORY Diagnosis Date Acute gastritis without mention of hemorrhage Arthritis of both hips 08/23/2015 Benign neoplasm of colon Dyslipidemia 01/22/2021 Fibromyalgia 03/25/2010 Incidental lung nodule, less than or equal to 3mm 10/19/2014 F/u not needed Inflammatory arthritis 03/26/2015 Insomnia 03/26/2015 Intrinsic asthma 10/31/2014 Lumbar degenerative disc disease 12/16/2010 Medicare annual wellness visit, subsequent 08/14/2021 Medicare Part B: Not able to find, Last done: 08/14/2021 Osteoporosis 12/10/2009 PMH - PAST MEDICAL HISTORY OF allergic rhinitis Postmenopausal atrophic vaginitis 11/03/2012 Psoriasis of nail 03/26/2015 Restless leg syndrome 03/25/2010 Spinal stenosis of lumbar region with radiculopathy 10/09/2016 Vitamin D deficiency 12/12/2009 Previous Surgical History PAST SURGICAL HISTORY Procedure Laterality Date COLSC FLX W/RMVL OF TUMOR POLYP LESION SNARE TQ 01/03/08 Repeat in EGD TRANSORAL BIOPSY SINGLE/MULTIPLE 01/03/08 PAST SURGICAL HISTORY OF 1980 deviated septum Family History FAMILY HISTORY Problem Relation Age of Onset Hypertension Mother Lipids Mother Heart Father irregular heart beat. Patient Allergies ALLERGIES Allergen Reactions Mold Other: See Comments Nasal/sinus Penicillins Unknown Pollen Extracts Other: See Comments Nasal/sinus Sulfa (Sulfonamide * Unknown Current Medications Current Outpatient Medications on File Prior to Visit Medication Sig MELATONIN ORAL Take by mouth as directed. meloxicam (MOBIC) 7.5 mg tablet Take 1 tablet by mouth once daily. montelukast (SINGULAIR) 10 mg tablet Take 1 tablet by mouth daily at bedtime. denosumab (PROLIA) 60 mg/mL 1 milliliter subcutaneously every 6 months. fluticasone (FLONASE) 50 mcg/actuation nasal spray instill 2 sprays into each nostril once daily albuterol HFA (VENTOLIN HFA) 90 mcg/actuation inhaler Inhale 2 Puffs as instructed every 4 hours as needed for Wheezing/Shortness of Breath. VITAMIN B COMPLEX ORAL Take by mouth. L.ACID/L.CASEI/B.BIF/B.ROBIN/FOS (PROBIOTIC BLEND ORAL) Take by mouth. folic acid 800 mcg ORAL Tab Take one(1) tablet daily. DAILY MULTIVITAMIN TAB Take one(1) tablet daily. traZODone (DESYREL) 50 mg tablet Take 1 tablet by mouth daily at bedtime. Calcium-Cholecalciferol, D3, (CALCIUM 600 WITH VITAMIN D3) 600 mg(1,500mg) -400 unit cap Take by mouth. Current Facility-Administered Medications on File Prior to Visit Medication denosumab 60 mg injection (PROLIA) Social History Social History Tobacco Use Smoking status: Never Smoker Smokeless tobacco: Never Used Substance Use Topics Alcohol use: Yes Comment: occasionally Drug use: No Review of Symptoms REVIEW OF SYSTEMS see hpi EXAM: BP 100/70 (BP Site: Left Arm, BP Position: Sitting, BP Cuff Size: Regular Adult) Pulse 84 Temp 36.1 C (97 F) Resp 16 Wt 59.9 kg (132 lb) BMI 21.86 kg/m General Appearance: Well appearing, alert, in no acute distress, well-hydrated, well nourished.. Skin: scaling and erythema on posterior scalp. . Head: Normocephalic, no masses, lesions, tenderness or abnormalities. Musculoskeletal: small nontender cyst like lump on 5th PIP joint.. Health Maintenance List SHINGRIX VACCINE(3 of 3) due on 03/19/2021 ADVANCE DIRECTIVE DISCUSSION Never done COLORECTAL CANCER SCREENING due on 01/22/2022 ANNUAL PCP TEAM CHRONIC DISEASE VISIT due on 08/14/2022 DIABETES SCREEN due on 01/22/2024 LIPID SCREEN due on 08/15/2026 DTAP,TDAP,TD(2 - Td or Tdap) due on 02/09/2029 BONE DENSITY Completed SPIROMETRY Completed INFLUENZA Completed COVID-19 VACCINE Completed PNEUMOCOCCAL: 65+ Completed MAMMOGRAM Discontinued HEPATITIS C SCREENING Discontinued DEPRESSION SCREENING Discontinued Data reviewed ASSESSMENT/PLAN: 1. Fibromyalgia - ICD9: 729.1, ICD10: M79.7 (primary diagnosis) Discussed different options. Patient would like to try gabapentin 300mg qhs Recheck in 1 month 2. Seborrheic dermatitis of scalp - ICD9: 690.18, ICD10: L21.9 Start ketoconazole shampoo 3. 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 Ganglion cyst - ICD9: 727.43, ICD10: M67.40 As #3. Could consider consult to ortho if worsening. Chrystal Mariee PA-C documented in this encounter [facility] 11-01-2021 History of Presen t illness Narrative POPULATION HEALTH NAVIGATION OUTREACH Action/FYI: [employer] Care Gaps Discuss/Due: Advance Directives, Colorectal Cancer Screening 01/23/22 or after Outcome: Left message on voice mail and sent [employer] message. Pt identified by name and : NO Outreach Outcome/Action Unable to reach patient: Left message MyChart message sent Reason for Outreach Care Gap or Scheduling/Wellness visits Payer: Payor: [employer] MEDICARE / Plan: [employer] MED[employer]ARE PPO / Product Type: PPO / Care Gap Reviewed:: Colorectal Cancer Screening Reminder: Reminder note to check Health Maintenance for items below Health Maintenance items due: ADVANCE DIRECTIVE DISCUSSION Never done Message Sent to Practice: No Navigation Signature: Ryann Newton Population Health Navigator November 01, 2021 10:40 AM documented in this encounter [facility] documented as of this encounter (statuses as of 11/01/2021) [facility] History of Past illness Narrative* Problem Noted Date Resolved Date Acute gastritis without mention of hemorrhage 01/01/2015 Other bursitis disorders 08/20/2004 005 documented as of this encounter (statuses as of 12/17/2021) [facility] History of Past illness Narrative* Problem Noted Date Resolved Date Acute gastritis without mention of hemorrhage 01/01/2015 Other bursitis disorders 08/20/2004 005 documented as of this encounter (statuses as of 01/14/2022) [facility] History of Past illness Narrative* Problem Noted Date Resolved Date Acute gastritis without mention of hemorrhage 01/01/2015 Other bursitis disorders 08/20/2004 005 documented as of this encounter (statuses as of 01/28/2022) [facility] History of Past illness Narrative* Problem Noted Date Resolved Date Acute gastritis without mention of hemorrhage 01/01/2015 Other bursitis disorders 08/20/2004 005 documented as of this encounter (statuses as of 02/25/2022) [facility] History of Past illness Narrative* Problem Noted Date Resolved Date Acute gastritis without mention of hemorrhage 01/01/2015 Other bursitis disorders 08/20/2004 005 documented as of this encounter (statuses as of 02/28/2022) [facility] History of Past illness Narrative* Problem Noted Date Resolved Date Acute gastritis without mention of hemorrhage 01/01/2015 Other bursitis disorders 08/20/2004 005 documented as of this encounter (statuses as of 03/04/2022) [facility] History of Past illness Narrative* Problem Noted Date Resolved Date Acute gastritis without mention of hemorrhage 01/01/2015 Other bursitis disorders 08/20/2004 005 documented as of this encounter (statuses as of 03/10/2022) [facility] History of Past illness Narrative* Problem Noted Date Resolved Date Acute gastritis without mention of hemorrhage 01/01/2015 Other bursitis disorders 08/20/2004 005 documented as of this encounter (statuses as of 03/10/2022) [facility] History of Past illness Narrative* Problem Noted Date Resolved Date Acute gastritis without mention of hemorrhage 01/01/2015 Other bursitis disorders 08/20/2004 005 documented as of this encounter (statuses as of 03/11/2022) [facility] History of Past illness Narrative* Problem Noted Date Resolved Date Acute gastritis without mention of hemorrhage 01/01/2015 Other bursitis disorders 08/20/2004 005 documented as of this encounter (statuses as of 04/21/2022) [facility] History of Past illness Narrative* Problem Noted Date Resolved Date Acute gastritis without mention of hemorrhage 01/01/2015 Other bursitis disorders 08/20/2004 005 documented as of this encounter (statuses as of 06/07/2022) [facility] History of Past illness Narrative* Problem Noted Date Resolved Date Acute gastritis without mention of hemorrhage 01/01/2015 Other bursitis disorders 08/20/2004 005 documented as of this encounter (statuses as of 06/30/2022) [facility] History of Past illness Narrative* Problem Noted Date Resolved Date Acute gastritis without mention of hemorrhage 01/01/2015 Other bursitis disorders 08/20/2004 005 documented as of this encounter (statuses as of 07/02/2022) [facility] History of Past illness Narrative* Problem Noted Date Resolved Date Acute gastritis without mention of hemorrhage 01/01/2015 Other bursitis disorders 08/20/2004 005 documented as of this encounter (statuses as of 07/07/2022) [facility] History of Past illness Narrative* Problem Noted Date Resolved Date Acute gastritis without mention of hemorrhage 01/01/2015 Other bursitis disorders 08/20/2004 005 documented as of this encounter (statuses as of 07/07/2022) [facility] History of Past illness Narrative* Problem Noted Date Resolved Date Acute gastritis without mention of hemorrhage 01/01/2015 Other bursitis disorders 08/20/2004 005 documented as of this encounter (statuses as of 07/16/2022) [facility] History of Past illness Narrative* Problem Noted Date Resolved Date Acute gastritis without mention of hemorrhage 01/01/2015 Other bursitis disorders 08/20/2004 005 documented as of this encounter (statuses as of 07/30/2022) [facility] History of Past illness Narrative* Problem Noted Date Resolved Date Acute gastritis without mention of hemorrhage 01/01/2015 Other bursitis disorders 08/20/2004 005 documented as of this encounter (statuses as of 08/15/2022) [facility] History of Past illness Narrative* Problem Noted Date Resolved Date Acute gastritis without mention of hemorrhage 01/01/2015 Other bursitis disorders 08/20/2004 005 documented as of this encounter (statuses as of 08/20/2022) [facility] History of Past illness Narrative* Problem Noted Date Resolved Date Acute gastritis without mention of hemorrhage 01/01/2015 Other bursitis disorders 08/20/2004 005 documented as of this encounter (statuses as of 08/28/2022) [facility] History of Past illness Narrative* Problem Noted Date Resolved Date Acute gastritis without mention of hemorrhage 01/01/2015 Other bursitis disorders 08/20/2004 005 documented as of this encounter (statuses as of 09/12/2022) [facility] History of Past illness Narrative* Problem Noted Date Resolved Date Acute gastritis without mention of hemorrhage 01/01/2015 Other bursitis disorders 08/20/2004 005 documented as of this encounter (statuses as of 12/26/2022) [facility] History of Past illness Narrative* Problem Noted Date Resolved Date Acute gastritis without mention of hemorrhage 01/01/2015 Other bursitis disorders 08/20/2004 005 documented as of this encounter (statuses as of 12/31/2022) [facility] History of Past illness Narrative* Problem Noted Date Resolved Date Acute gastritis without mention of hemorrhage 01/01/2015 Other bursitis disorders 08/20/2004 005 documented as of this encounter (statuses as of 01/29/2023) [facility] History of Past illness Narrative* Problem Noted Date Resolved Date Acute gastritis without mention of hemorrhage 01/01/2015 Other bursitis disorders 08/20/2004 005 documented as of this encounter (statuses as of 01/30/2023) [facility] History of Past illness Narrative* Problem Noted Date Diagnosed Date Resolved Date Acute gastritis without mention of hemorrhage 01/03/20 08 01/01/2015 Other bursitis disorders 08/20/2004 documented as of this encounter (statuses as of 02/21/2023) [facility] History of Past illness Narrative* Problem Noted Date Diagnosed Date Resolved Date Acute gastritis without mention of hemorrhage 01/03/20 08 01/01/2015 Other bursitis disorders 08/20/2004 documented as of this encounter (statuses as of 03/19/2023) [facility] History of Past illness Narrative* Problem Noted Date Diagnosed Date Resolved Date Acute gastritis without mention of hemorrhage 01/03/20 08 01/01/2015 Other bursitis disorders 08/20/2004 documented as of this encounter (statuses as of 03/19/2023) [address]09-2008 History of Past illness Narrative* Problem Noted Date Diagnosed Date Resolved Date Acute gastritis without mention of hemorrhage 01/03/20 08 01/01/2015 Other bursitis disorders 08/20/2004 documented as of this encounter (statuses as of 03/19/2023) [facility] History of Past illness Narrative* Problem Noted Date Diagnosed Date Resolved Date Acute gastritis without mention of hemorrhage 01/03/20 08 01/01/2015 Other bursitis disorders 08/20/2004 documented as of this encounter (statuses as of 03/26/2023) [facility] History of Past illness Narrative* Problem Noted Date Diagnosed Date Resolved Date Acute gastritis without mention of hemorrhage 01/03/20 08 01/01/2015 Other bursitis disorders 08/20/2004 documented as of this encounter (statuses as of 04/13/2023) [address]09-2008 History of Past illness Narrative* Problem Noted Date Diagnosed Date Resolved Date Acute gastritis without mention of hemorrhage 01/03/20 08 01/01/2015 Other bursitis disorders 08/20/2004 documented as of this encounter (statuses as of 04/15/2023) [facility] History of Past illness Narrative* Problem Noted Date Diagnosed Date Resolved Date Acute gastritis without mention of hemorrhage 01/03/20 08 01/01/2015 Other bursitis disorders 08/20/2004 documented as of this encounter (statuses as of 05/27/2023) [facility] History of Past illness Narrative* Problem Noted Date Diagnosed Date Resolved Date Acute gastritis without mention of hemorrhage 01/03/20 08 01/01/2015 Other bursitis disorders 08/20/2004 documented as of this encounter (statuses as of 05/31/2023) [facility] noteThere may be information available, but it has not been provided by the sender.[facility] Work Phone: Evaluation note* Diagnosis Fibromyalgia- Primary Mylagia and myositis, unspecified Seborrheic dermatitis of scalp Other seborrheic dermatitis Hand arthritis Unspecified arthropathy, hand Ganglion cyst Ganglion, unspecified [facility] this encounter [facility]* Diagnosis Osteoporosis, unspecified osteoporosis type, unspecified pathological fracture presence- Primary [facility] Diagnosis Dyslipidemia- Primary Other and unspecified hyperlipidemia Insomnia, unspecified type Lumbar degenerative disc disease Degeneration of lumbar or lumbosacral intervertebral disc Osteoporosis, unspecified osteoporosis type, unspecified pathological fracture presence Inflammatory arthritis Unspecified inflammatory polyarthropathy Screening for colon cancer Special screening for malignant neoplasms, colon Restless leg syndrome Restless legs syndrome (RLS) Intrinsic asthma Intrinsic asthma, unspecified Fibromyalgia Mylagia and myositis, unspecified Vitamin D deficiency Unspecified vitamin D deficiency Ganglion cyst Ganglion, unspecified Age-related osteoporosis without current pathological fracture Senile osteoporosis [facility] Diagnosis Ganglion cyst of finger of right hand- Primary Ganglion cyst of finger of right hand [facility] Diagnosis Ganglion cyst Ganglion, unspecified Ganglion cyst of finger of right hand [facility] Diagnosis Osteoporosis, unspecified osteoporosis type, unspecified pathological fracture presence Ganglion cyst of finger of right hand documented [facility] this encounter [facility]* Diagnosis Ganglion cyst of finger of right hand- Primary [facility] this encounter [facility]* Diagnosis Osteoporosis, unspecified osteoporosis type, unspecified pathological fracture presence- Primary [facility] Diagnosis Ganglion cyst of finger of right hand- Primary [facility] Diagnosis Osteoporosis, unspecified osteoporosis type, unspecified pathological fracture presence documented [facility]* Diagnosis Osteoporosis, unspecified osteoporosis type, unspecified pathological fracture presence- Primary documented [facility] this encounter [facility]* Diagnosis Medicare annual wellness visit, subsequent- Primary Routine general medical examination at a health care facility Dyslipidemia Other and unspecified hyperlipidemia Intrinsic asthma Intrinsic asthma, unspecified Vitamin D deficiency Unspecified vitamin D deficiency Restless leg syndrome Restless legs syndrome (RLS) Insomnia, unspecified type Fibromyalgia Mylagia and myositis, unspecified Lumbar degenerative disc disease Degeneration of lumbar or lumbosacral intervertebral disc Medication management Encounter for long-term (current) use of other medications Advance directive discussed with patient Other specified counseling Neck pain Cervicalgia Viral sinusitis Unspecified sinusitis (chronic) documented [facility] this [facility]* Diagnosis Leukocytosis, unspecified type- Primary documented [facility] this encounter [facility]* Diagnosis Acute otitis media, left- Primary Unspecified otitis media URI, acute Acute upper respiratory infections of unspecified site [facility]* Diagnosis Allergic reaction, initial encounter- Primary documented [facility]* Diagnosis Osteoporosis, unspecified osteoporosis type, unspecified pathological fracture presence [facility]* Diagnosis Osteoporosis, unspecified osteoporosis type, unspecified pathological fracture presence [facility]* Diagnosis Dyspnea, unspecified type- Primary documented in this encounter [facility] note* Diagnosis Mild persistent asthma without complication- Primary Unspecified asthma Deviated nasal septum History of seasonal allergies Other allergy, other than to medicinal agents documented in this encounter [facility] note* Diagnosis Mild persistent asthma without complication- Primary Unspecified asthma Need for influenza vaccination Need for prophylactic vaccination and inoculation against influenza Deviated nasal septum History of seasonal allergies Other allergy, other than to medicinal agents [facility]* Diagnosis Chronic sinusitis, unspecified location Chronic pansinusitis Other chronic sinusitis Mass of hard palate Swelling, mass, or lump in head and neck documented [facility] this encounter [facility] Instruction Description Start Date Completed [facility] Work Phone: Reason for referral (narrative)* Outpatient Procedure (Routine) - Authorized Specialty Diagnoses / Procedures Referred By Neeraj frias Referred To Contact [facility] Diagnoses Dyspnea, unspecified type Procedures SPIROMETRY WITH DILATOR IF OBSTRUCTED BRNCDILAT RSPSE SPMTRY PRE&POST-BRNCDILAT ADMAlona Srivastava MD [address] [place] [address] Respiratory [place] [address] [place] [address] Referral ID Status Reason Start Date Expiration Date Visits Requested Visits Authorized [id number] Authorized Auto-Generat ed Referral 03/26/2023 04/24/2024 1 1 [facility] Chief Complaint Chief Complaint Description Start Date lower back pain Preliminary chief co mplaint data, not yet signed by the author as of Advance Directives There may be information available, but it has not been provided by the sender. No Advanced Directives Records Found Family History There may be information available, but it has not been provided by the sender.No Family History Records Found Medications Administered Section Inactive Administered Medications - up to 3 most recent administrations Medication Order MAR Action Action Date Dose Rate Site denosumab 60 mg injection (PROLIA) 60 mg, SUBCUTANEOUS, EVERY 6 MONTHS, 2 doses, First dose on Silvia 02/07/21 at 0000, Last dose on Thu08/06/21 at 0000, Allow To Come To Room Temperature Before Administration. REFRIGERATE Given 01/14/2022 10:49 AM EDT 60 mg Arm, Left Active Administered Medications - up to 3 most recent administrations Medication Order MAR Action Action Date Dose Rate Site denosumab 60 mg injection (PROLIA) 60 mg, SUBCUTANEOUS, EVERY 6 MONTHS, 2 doses, First dose on Thu07/16/22 at 0000, Last dose on Thu01/12/23 at 0000, Allow To Come To Room Temperature Before Administration. REFRIGERATE Given 07/16/2022 9:47 AM EST 60 mg Arm, Right Inactive Administered Medications - up to 3 most recent administrations Medication Order MAR Action Action Date Dose Rate Site denosumab 60 mg injection (PROLIA) 60 mg, SUBCUTANEOUS, EVERY 6 MONTHS, 2 doses, First dose on Thu07/16/22 at 0000, Last dose on Thu01/12/23 at 0000, Allow To Come To Room Temperature Before Administration. REFRIGERATE Given 01/29/2023 10:06 AM EDT 60 mg Arm, Right Reason for Referral Specialty Diagnoses / Procedures Referred By Neeraj frias Referred To Contact Orthopedics Diagnoses Ganglion cyst Procedures CONSULT TO ORTHOPAEDICS OFFICE/OUTPATIENT [facility] [place] 60-74 MINUTES Chrystal Mariee PA-C [address] [place] [address] Referral ID Status Reason Start Date Expiration Date Visits Requested Visits Authorized [id number] Pending Review PCP Requested Referral 01/28/2022 01/28/2023 1 1 Specialty Diagnoses / Procedures Referred By Contac t Referred To Contact Ent - Otolaryngology Diagnoses Deviated nasal septum Procedures CONSULT TO ENT Alona Bauer MD [address] [place] [address] Ray Ediall Nicole [address] [place] [address] Referral ID Status Reason Start Date Expiration Date Visits Requested Visits Authorized [id number] Ref Not Required PCP Requested Referral 04/13/2023 04/12/2024 1 1 Specialty Diagnoses / Procedures Referred By Contac t Referred To Contact CT IMAGING Diagnoses Chronic sinusitis, unspecified location Chronic pansinusitis Mass of hard palate Procedures CT SINUS WO IVCON CT MAXILLOFACIAL W/O CONTRAST MATERIAL Chrystal Mariee PA-C [address] [place] [address] Ct Imaging [id number] Referral ID Status Reason Start Date Expiration Date V isits Requested Visits Authorized [id number] Closed Auto-Generate d Referral 02/12/2023 03/13/2024 1 1 Summary Purpose Additional Source Comments Reason for Visit (unrecogniz ed section and content) Reason Onset Date Comments Population Health Navigation Outreach 11/01/2021 [employer] Care Gaps Reason Comments Derm Problem cyst? on right fifth digit Reason Comments Imm/Inj Reason Comments F/U 6 Month Reason Comments Results Reason Comments Schedule Surgery Reason Comments New 5th finger Pain 5th finger Specialty Diagnoses / Procedures Referred By Contac t Referred To Contact Orthopedics Diagnoses Ganglion cyst Procedures CONSULT TO ORTHOPAEDICS OFFICE/OUTPATIENT NEW HIGH MDM 60-74 MINUTES Chrystal Mariee PA-C [address] [place] [address] Referral ID Status Reason Start Date Expiration Date Visits Requested Visits Authorized [id number] Pending Review PCP Requested Referral 01/28/2022 01/28/2023 1 1 Reason Onset Date Comments Refill Request 03/10/2022 Reason Comments Established Patient 1wk 4days postop exc ision ganglion cyst right 5th finger Post Op 1wk 4days postop exc ision ganglion cyst right 5th finger Reason Onset Date Comments Refill Request 06/07/2022 Reason Comments Orders Reason Comments Patient Question Reason Comments Established Patient Blister Reason Onset Date Comments Refill Request 07/07/2022 Reason Comments Medicare Wellness Exam Reason Comments Symptoms Reason Onset Date Comments Population Health Navigation Outreach 09/12/2022 [employer] Care Gaps Reason Comments Release Of Medical Records Reason Comments Cough Chest congestion x 3 days Reason Comments Physical Therapy Reason Comments Rash Rash on face x 1 day Reason Onset Date Comments Refill Request 03/19/2023 Reason Comments Difficulty Breathing Nasal , worse at ni ght, using flonase and inhaler for past months Reason Comments Insurance Authorization Reason Onset Date Comments Established Patient 6 week follo w up asthma Immunizations 05/27/2023 Flu vaccination Reason Comments Radiology CT Specialty Diagnoses / Procedures Referred By Neeraj frias Referred To Contact CT IMAGING Diagnoses Chronic sinusitis, unspecified location Chronic pansinusitis Mass of hard palate Procedures CT SINUS WO IVCON CT MAXILLOFACIAL W/O CONTRAST MATERIAL Chrystal Mariee PA-C [address] [place] [address] [place] [address] Referral ID Status Reason Start Date Expiration Date V isits Requested Visits Authorized [id number] Closed Auto-Generate d Referral 02/12/2023 03/13/2024 1 1 Source Comments (unrecognize d section and content) In the event this informatio n is protected by the Federal Confidentiality of Alcohol and Drug Abuse Patient Records regulations: The Federal rules restrict any use of the information to criminally investigate or prosecute any alcohol or drug abuse patient.[facility] the event this information is protected by the Federal Confidentiality of Alcohol and Drug Abuse Patient Records regulations: The Federal rules restrict any use of the information to criminally investigate or prosecute any alcohol or drug abuse patient.[facility] CenterIn the event this information is protected by the Federal Confidentiality of Alcohol and Drug Abuse Patient Records regulations: The Federal rules restrict any use of the information to criminally investigate or prosecute any alcohol or drug abuse patient.[facility] CenterIn the event this information is protected by the Federal Confidentiality of Alcohol and Drug Abuse Patient Records regulations: The Federal rules restrict any use of the information to criminally investigate or prosecute any alcohol or drug abuse patient.[facility] CenterIn the event this information is protected by the Federal Confidentiality of Alcohol and Drug Abuse Patient Records regulations: The Federal rules restrict any use of the information to criminally investigate or prosecute any alcohol or drug abuse patient.[facility] CenterIn the event this information is protected by the Federal Confidentiality of Alcohol and Drug Abuse Patient Records regulations: The Federal rules restrict any use of the information to criminally investigate or prosecute any alcohol or drug abuse patient.[facility] CenterIn the event this information is protected by the Federal Confidentiality of Alcohol and Drug Abuse Patient Records regulations: The Federal rules restrict any use of the information to criminally investigate or prosecute any alcohol or drug abuse patient.[facility] CenterIn the event this information is protected by the Federal Confidentiality of Alcohol and Drug Abuse Patient Records regulations: The Federal rules restrict any use of the information to criminally investigate or prosecute any alcohol or drug abuse patient.[facility] CenterIn the event this information is protected by the Federal Confidentiality of Alcohol and Drug Abuse Patient Records regulations: The Federal rules restrict any use of the information to criminally investigate or prosecute any alcohol or drug abuse patient.[facility] CenterIn the event this information is protected by the Federal Confidentiality of Alcohol and Drug Abuse Patient Records regulations: The Federal rules restrict any use of the information to criminally investigate or prosecute any alcohol or drug abuse patient.[facility] CenterIn the event this information is protected by the Federal Confidentiality of Alcohol and Drug Abuse Patient Records regulations: The Federal rules restrict any use of the information to criminally investigate or prosecute any alcohol or drug abuse patient.[facility] CenterIn the event this information is protected by the Federal Confidentiality of Alcohol and Drug Abuse Patient Records regulations: The Federal rules restrict any use of the information to criminally investigate or prosecute any alcohol or drug abuse patient.[facility] CenterIn the event this information is protected by the Federal Confidentiality of Alcohol and Drug Abuse Patient Records regulations: The Federal rules restrict any use of the information to criminally investigate or prosecute any alcohol or drug abuse patient.[facility] CenterIn the event this information is protected by the Federal Confidentiality of Alcohol and Drug Abuse Patient Records regulations: The Federal rules restrict any use of the information to criminally investigate or prosecute any alcohol or drug abuse patient.[facility] CenterIn the event this information is protected by the Federal Confidentiality of Alcohol and Drug Abuse Patient Records regulations: The Federal rules restrict any use of the information to criminally investigate or prosecute any alcohol or drug abuse patient.[facility] CenterIn the event this information is protected by the Federal Confidentiality of Alcohol and Drug Abuse Patient Records regulations: The Federal rules restrict any use of the information to criminally investigate or prosecute any alcohol or drug abuse patient.[facility] CenterIn the event this information is protected by the Federal Confidentiality of Alcohol and Drug Abuse Patient Records regulations: The Federal rules restrict any use of the information to criminally investigate or prosecute any alcohol or drug abuse patient.[facility] CenterIn the event this information is protected by the Federal Confidentiality of Alcohol and Drug Abuse Patient Records regulations: The Federal rules restrict any use of the information to criminally investigate or prosecute any alcohol or drug abuse patient.[facility] CenterIn the event this information is protected by the Federal Confidentiality of Alcohol and Drug Abuse Patient Records regulations: The Federal rules restrict any use of the information to criminally investigate or prosecute any alcohol or drug abuse patient.[facility] CenterIn the event this information is protected by the Federal Confidentiality of Alcohol and Drug Abuse Patient Records regulations: The Federal rules restrict any use of the information to criminally investigate or prosecute any alcohol or drug abuse patient.[facility] CenterIn the event this information is protected by the Federal Confidentiality of Alcohol and Drug Abuse Patient Records regulations: The Federal rules restrict any use of the information to criminally investigate or prosecute any alcohol or drug abuse patient.[facility] CenterIn the event this information is protected by the Federal Confidentiality of Alcohol and Drug Abuse Patient Records regulations: The Federal rules restrict any use of the information to criminally investigate or prosecute any alcohol or drug abuse patient.[facility] CenterIn the event this information is protected by the Federal Confidentiality of Alcohol and Drug Abuse Patient Records regulations: The Federal rules restrict any use of the information to criminally investigate or prosecute any alcohol or drug abuse patient.[facility] CenterIn the event this information is protected by the Federal Confidentiality of Alcohol and Drug Abuse Patient Records regulations: The Federal rules restrict any use of the information to criminally investigate or prosecute any alcohol or drug abuse patient.[facility] CenterIn the event this information is protected by the Federal Confidentiality of Alcohol and Drug Abuse Patient Records regulations: The Federal rules restrict any use of the information to criminally investigate or prosecute any alcohol or drug abuse patient.[facility] CenterIn the event this information is protected by the Federal Confidentiality of Alcohol and Drug Abuse Patient Records regulations: The Federal rules restrict any use of the information to criminally investigate or prosecute any alcohol or drug abuse patient.[facility] CenterIn the event this information is protected by the Federal Confidentiality of Alcohol and Drug Abuse Patient Records regulations: The Federal rules restrict any use of the information to criminally investigate or prosecute any alcohol or drug abuse patient.[facility] CenterIn the event this information is protected by the Federal Confidentiality of Alcohol and Drug Abuse Patient Records regulations: The Federal rules restrict any use of the information to criminally investigate or prosecute any alcohol or drug abuse patient.[facility] CenterIn the event this information is protected by the Federal Confidentiality of Alcohol and Drug Abuse Patient Records regulations: The Federal rules restrict any use of the information to criminally investigate or prosecute any alcohol or drug abuse patient.[facility] CenterIn the event this information is protected by the Federal Confidentiality of Alcohol and Drug Abuse Patient Records regulations: The Federal rules restrict any use of the information to criminally investigate or prosecute any alcohol or drug abuse patient.[facility] CenterIn the event this information is protected by the Federal Confidentiality of Alcohol and Drug Abuse Patient Records regulations: The Federal rules restrict any use of the information to criminally investigate or prosecute any alcohol or drug abuse patient.[facility] CenterIn the event this information is protected by the Federal Confidentiality of Alcohol and Drug Abuse Patient Records regulations: The Federal rules restrict any use of the information to criminally investigate or prosecute any alcohol or drug abuse patient.[facility] CenterIn the event this information is protected by the Federal Confidentiality of Alcohol and Drug Abuse Patient Records regulations: The Federal rules restrict any use of the information to criminally investigate or prosecute any alcohol or drug abuse patient.[facility] CenterIn the event this information is protected by the Federal Confidentiality of Alcohol and Drug Abuse Patient Records regulations: The Federal rules restrict any use of the information to criminally investigate or prosecute any alcohol or drug abuse patient.[facility] CenterIn the event this information is protected by the Federal Confidentiality of Alcohol and Drug Abuse Patient Records regulations: The Federal rules restrict any use of the information to criminally investigate or prosecute any alcohol or drug abuse patient.[facility] Care Teams (unrecognized sec tion and content) 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 Start Date End Date Joan Hein MD [address] [place], [place] [id number] PCP - General Family Practice 01/22/21 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 Start Date End Date Joan Hein MD [address] [place] [address] PCP - General Family Practice 01/22/21 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 Start Date End Date Joan Hein MD [address] [place] [address] PCP - General Family Practice 01/22/21 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 Start Date End Date Joan Hein MD [address] [place] [address], [place] [address] PCP - General Family Practice 01/22/21 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 Start Date End Date Joan Hein MD [address] [place] [address], [place] [address] PCP - General Family Practice 01/22/21 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 Start Date End Date Joan Hein MD [address] [place] [address] PCP - General Family Practice 01/22/21 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 Start Date End Date Joan Hein MD [address] [place] [address] PCP - General Family Practice 01/22/21 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 Start Date End Date Joan Hein MD [address] [place] [address] [place] [address] PCP - General Family Practice 01/22/21 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 Start Date End Date Joan Hein MD [address] [place] [address] PCP - General Family Medicine 01/22/21 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 Start Date End Date Joan Hein MD [address] [place] [address] [place] [address] PCP - General Family Medicine 01/22/21 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 Start Date End Date Joan Hein MD [address] [place] [address] [place] [address] PCP - General Family Medicine 01/22/21 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 Start Date End Date Joan Hein MD [address] [facility] [place] [address] PCP - General Family Medicine 01/22/21 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 Start Date End Date Joan Hein MD [address] [place] [address] PCP - General Family Medicine 01/22/21 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 Start Date End Date Joan Hein MD [address] [place] [address] PCP - General Family Medicine 01/22/21 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 Start Date End Date Joan Hein MD [address] [place] [address] PCP - General Family Medicine 01/22/21 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 Start Date End Date Joan Hein MD [address] [place] [address] PCP - General Family Medicine 01/22/21 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 Start Date End Date Joan Hein MD [address] [place] [address] PCP - General Family Medicine 01/22/21 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 Start Date End Date Joan Hein MD [address] [place] [address] PCP - General Family Medicine 01/22/21 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 Start Date End Date Joan Hein MD [address] [place] [address] PCP - General Family Medicine 01/22/21 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 Start Date End Date Joan Hein MD [address] [place] [address] PCP - General Family Medicine 01/22/21 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 Start Date End Date Joan Hein MD [address] [place], [place] [address] PCP - General Family Medicine 01/22/21 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 This clinical summary was aggregated from multiple sources. Caution should be exercised in using it in the provision of clinical care. This summary normalizes information from multiple sources, and as a consequence, information in this document may materially change the coding, format and clinical context of patient data. In addition, data may be omitted in some cases. CLINICAL DECISIONS SHOULD BE BASED ON THE PRIMARY CLINICAL RECORDS. [employer] provides no warranty or guarantee of the accuracy or completeness of information in this document.
== END 2023-08-03 15:36 | disposition home or self-care (01) ==
PROVIDERS: Nurse Practitioner; Emergency Provider Emergency Medicine; PCP Family Medicine; Visit Provider Emergency Medicine
DX: R07.9 Chest pain, unspecified (principal)
CPT/HCPCS: 71045; 80053; 84484; 85025; 93005; 99284; A4216

== ENCOUNTER → 2023-08-11 | Outpatient (CLI) | payer MEDICARE, SELFPAY ==
--- NOTE | 2023-08-11 13:28 | STRESSREP_ITS ---
Stress Test Report Exercise myocardial perfusion stress test. 73-year-old lady with a history of chest pain Stress protocol: Resting EKG demonstrates normal sinus rhythm with a rate of 75 bpm resting blood pressure is 110/76 mmHg. The patient exercised according to the regular Natan protocol for a total duration of 8 minutes and 14 seconds attaining a maximum heart rate of 142 bpm which was 95% of maximum predicted heart rate; the maximum workload was 10.1 metabolic equivalents. At rest there were no ST or T wave changes noted to suggest ischemia and at peak exercise upsloping ST changes only were noted which did not meet the criteria for ischemia. No clinical angina was noted the test was terminated due to the target heart rate being achieved/fati yuniel. The peak blood pressure was 148/84 mmHg. Rate-pressure product was 21,000. Conclusion: Normal sinus rhythm with no acute changes and no chest pain or EKG changes suggestive of ischemia
== END | disposition home or self-care (01) ==
LOC: CVS 10:50
PROVIDERS: PCP Family Medicine; Referring Provider Family Medicine; Visit Provider Family Medicine
DX: I20.0 Unstable angina (principal)
CPT/HCPCS: 93017

== ENCOUNTER 2024-01-28 23:14 | Observation (INO) | payer MEDICARE, SELFPAY ==
[2024-01-28 23:17] VITALS: BP 132/100; PULSE 130; RESP 18; TEMP 36.7; O2SAT 98; BMI 22.6
--- NOTE | 2024-01-28 23:24 | EKG12_ITS ---
Test Reason : DYSRHYTHMIA Blood Pressure : / mmHG Vent. Rate : 127 BPM Atrial Rate : 000 BPM P-R Int : 000 ms QRS Dur : 078 ms QT Int : 298 ms P-R-T Axes : 000 055 066 degrees QTc Int : 433 ms Accelerated Junctional rhythm Nonspecific ST abnormality Abnormal ECG Confirmed by Son Fontana ([id number]), editorial assistant SHERRY HAN ([id number]) on 02/01/2024 10:34:24 AM Referred By: MARCY Confirmed By:Son Fontana
--- NOTE | 2024-01-28 23:24 | EKG12_ITS ---
Test Reason : DYSRHYTHMIA Blood Pressure : / mmHG Vent. Rate : 085 BPM Atrial Rate : 085 BPM P-R Int : 196 ms QRS Dur : 078 ms QT Int : 348 ms P-R-T Axes : 078 046 064 degrees QTc Int : 414 ms Normal sinus rhythm Normal ECG Confirmed by Son Fontana ([id number]), proposal editor SHERRY HAN ([id number]) on 02/01/2024 10:34:04 AM Referred By: MARCY Confirmed By:Son Fontaan
--- NOTE | 2024-01-28 23:24 | RAD_ITS ---
INDICATION: cp EXAMINATION/TECHNIQUE: X-RAY - XR Chest 1 View COMPARISON: 08/03/2023. FINDINGS: LINES/DEVICES: None. LUNGS: Lungs symmetrically hyperexpanded. No consolidation, edema or effusion. No pneumothorax. MEDIASTINUM AND CARDIOVASCULAR STRUCTURES: Cardiac silhouette not enlarged. Mild aortic atherosclerosis and tortuosity BONES AND SOFT TISSUES: Unremarkable. RAD/Chest 1 View (Portable) IMPRESSION: Hyperexpansion as can be seen with chronic obstructive pulmonary disease. No radiographic evidence of consolidative pneumonia or florid edema. Electronically Signed: Yassine Whittington MD at 0:14 EDT ,
--- NOTE | 2024-01-28 23:32 | EDS_ITS ---
HPI History of Present Illness Chief Complaint: Palpitations Detail of Chief Complaint: Palpitations, nausea, chest tightness Informant: patient Narrative Narrative: Patient presents with high heart rate, chest tightness, and some nausea that started around 8 PM this evening. She was wearing an Apple Watch and noted her heart rate was between 130s and 150s. She had some slight chest tightness. No significant lightheadedness or dizziness. She does not feel short of breath. [facility] Medical History (Updated 01/29/24 @ 02:[address] Marilou Ariza MD) Asthma Arthritis Home Medications ?Medication ?Instructions ?Recorded ?Last Taken ?Type albuterol sulfate 90 mcg/actuation 2 puff inhalation Q4H PRN 01/28/24 Unknown History aerosol inhaler shortness of breath or wheezing beclomethasone dipropionate 80 2 inh inhalation BID 01/28/24 Unknown History mcg/actuation HFA breath activated aerosol (Qvar RediHaler) denosumab 60 mg/mL subcutaneous 60 mg subcut .[id number] 01/28/24 Unknown History syringe (Prolia) doxycycline hyclate 100 mg tablet 50 mg PO BID 01/28/24 Unknown History fluticasone furoate 100 1 inh inhalation DAILY 01/28/24 Unknown History mcg/actuation blister powder for inhalation (Arnuity Ellipta) gabapentin 300 mg capsule 300 mg PO Q12H 01/28/24 Unknown History meloxicam 7.5 mg tablet 7.5 mg PO DAILY 01/28/24 Unknown History montelukast 10 mg tablet 10 mg PO QHS 01/28/24 Unknown History Allergy/AdvReac Type Severity Reaction Status Date / Time Penicillins AdvReac Mild Nausea Verified 01/28/24 23:22 Sulfa (Sulfonamide AdvReac Mild Nausea Verified 01/28/24 23:22 Antibiotics) Social History Smoking Status: Never smoker ROS ROS ED Constitutional Constitutional ED: Denies chills or fever(s) Eyes Eyes: Denies change in vision ENT ENT ED: Denies rhinorrhea or sore throat Cardiovascular Cardiovascular: Reports chest pain and palpitations Respiratory/Chest Respiratory/Chest: Denies cough or dyspnea Gastrointestinal Gastrointestinal: Reports nausea; Denies abdominal pain, diarrhea or vomiting Genitourinary Genitourinary ED: Denies dysuria Musculoskeletal Musculoskeletal: Denies back pain or extremity pain Integumentary Denies Abrasions or rash Neurologic Neurologic: Denies headache(s) or weakness Psychiatric Psychiatric: Denies anxiety or depression Allergic/Immunologic Allergic/Immunologic ED: Denies lip swelling or urticaria EXAM Physical Exam Const Vital Signs: 01/28/24 23:17 01/29/24 01:14 Temperature 98.1 F Temperature Source Temporal Pulse Rate 130 H 75 Respiratory Rate 18 12 Blood Pressure 132/100 H 117/81 H Blood Pressure Mean 110 93 Pulse Ox 98 97 Oxygen Delivery Method Room Air Room Air Positive well nourished and well developed General Appearance ED: well developed HEENT Reports moist mucous membranes Eyes EOMs intact bilaterally Chest Wall inspection of chest normal and palpation of chest normal Resp normal respiratory effort and clear to auscultation bilaterally Cardio regular rate and regular rhythm GI non-tender Auscultation: hypoactive bowel sounds Palpation: soft Extremity normal to inspection Neuro oriented x3 and no sensory deficits noted Motor Exam: strength 5/5 throughout Psych mental status grossly normal Skin no rashes or lesions noted MDM MDM MDM Narrative Medical decision making narrative: Patient was placed on compliance monitor. IV line initiated. EKG obtained to evaluate for cardiac arrhythmia/ischemia. Chest x-ray obtained to evaluate for acute lung pathology, cardiac size, or mediastinal abnormality. Labwork obtained to evaluate for leukocytosis, anemia, and electrolyte derangement. Lab Data Labs: Laboratory Results - last 24 hr 01/28/24 01/29/24 23:31 01:39 WBC 7.3 RBC 4.16 L Hgb 12.3 Hct 37.6 MCV 90.4 MCH 29.6 MCHC 32.7 RDW Std Deviation 44.4 H RDW Coeff of Angy 13.3 Plt Count 288 MPV 9.3 Immature Gran % (Auto) 0.100 Neut % (Auto) 48.1 Lymph % (Auto) 38.1 Vance % (Auto) 9.8 Eos % (Auto) 3.1 Baso % (Auto) 0.8 Absolute Neuts (auto) 3.5 Absolute Lymphs (auto) 2.79 Nucleated RBC % 0 Sodium 140 Potassium 4.1 Chloride 105 Carbon Dioxide 25.0 Anion Gap 10 BUN 27 H Creatinine 0.81 Estim Creat Clear Calc 55.01 Est GFR (MDRD) Af Amer 89 Est GFR (MDRD) Non-Af 74 BUN/Creatinine Ratio 33.2 H Glucose 110 H Calcium 9.4 Total Bilirubin 0.40 Direct Bilirubin 0.09 AST 21 ALT 18 Alkaline Phosphatase 52 Troponin I High Sens 31 94 H Total Protein 7.7 Albumin 3.7 Globulin 4.0 TSH 4.95 H Radiography Chest X-Ray - ED: 1 View, Read by ED Physician, Normal, Heart, Lungs and Mediastinum Diagnostic Testing: Clinical Impression(s) from Imaging Studies Chest X-Ray 01/28/24 23:24 IMPRESSION: Hyperexpansion as can be seen with chronic obstructive pulmonary disease. No radiographic evidence of consolidative pneumonia or florid edema. Electronically Signed: Yassine Whittington MD at 0:14 EDT , Treatment and Re-Evaluation :: Patient's initial EKG reveals an accelerated junctional rhythm at 127. There is mild, 1/2 to 1 mm, ST depression in V3, V4, and V5. When I walked in the room to evaluate the patient her heart rate was in the 80s and appeared to be in a sinus rhythm. Repeat EKG was obtained and does confirm sinus rhythm 85 bpm with no obvious ischemia. Patient does report her chest tightness is improving. CBC reveals normal white count 7.3 with a hemoglobin of 12.3. Differential unremarkable. Chemistry studies are normal. LFTs are unremarkable and initial troponin is 31. 2-hour repeat troponin has increased to 94 for a delta troponin of 63. Patient's TSH is slightly elevated at 4.95. Portable chest x-ray per my interpretation reveals hyperinflation with no focal infiltrate or pneumothorax. Radiology interpretation reviewed and agrees. Given the patient's delta troponin did increase from the 20 points, I will speak with hospitalist regarding observation for cycling of enzymes and cardiac monitoring. Discharge Plan Triage Chief Complaint: Palpitations ED Provider: Marilou Ariza Dx/Rx/DC Orders Clinical Impression: Accelerated atrioventricular junctional rhythm, Chest pain, Elevated troponin Prescriptions: No Action albuterol sulfate 90 mcg/actuation HFA aerosol inhaler 2 puff inhalation Q4H PRN (Reason: shortness of breath or wheezing) doxycycline hyclate 100 mg tablet 50 mg PO BID Qvar RediHaler 80 mcg/actuation HFA aerosol breath activated 2 inh inhalation BID Prolia 60 mg/mL syringe 60 mg subcut .[id number] gabapentin 300 mg capsule 300 mg PO Q12H Arnuity Ellipta 100 mcg/actuation blister with device 1 inh INHALATION DAILY meloxicam 7.5 mg tablet 7.5 mg PO DAILY montelukast 10 mg tablet 10 mg PO QHS Primary Care Provider: Tacos Johnson Referrals: Tacos Johnson MD [Primary Care Provider] - Print Language: Tongan Disposition Disposition: Acute Care Hospital [facility]
[2024-01-28] MEDS: 0.9% Normal Saline (1000mL) 1,000 ML 150 ML IV (23:34)
[2024-01-28 23:41] LABS: Absolute Lymphocyte Count 2.79 X10^3/uL (0.83-4.51); Absolute Neutrophil Count 3.5 X10^3/uL (2.0-7.7); Basophil# 0.06 X10^3/uL; Basophil% 0.8 % (0-1); Eosinophil# 0.23 X10^3/uL; Eosinophils% 3.1 % (0-5); Hematocrit 37.6 % (37-47); Hemoglobin 12.3 g/dL (12.0-15.0); Lymphocyte # 2.79 X10^3/ul (0.83-4.51); Lymphocyte % 38.1 % (19-41); Mean Corp Hgb Conc 32.7 g/dL (32-36); Mean Corpuscular Hgb 29.6 pg (27.0-32.0); Mean Corpuscular Volume 90.4 fL (81-99); Mean Platelet Vol. 9.3 fl (6.2-12.0); Monocyte# 0.72 X10^3/uL; Monocyte% 9.8 % (0-10); NRBC Flagged by Analyzer 0 % (0-5); Neutrophil # 3.52 X10^3/uL (2.7-7.7); Neutrophil % 48.1 % (47-70); Platelet Count 288 K/mm3 (150-450); RBC Distribution Width CV 13.3 % (11.6-14.6); RBC Distribution Width SD 44.4 fl (35.1-43.9); Red Blood Count 4.16 M/mm3 (4.2-5.4); White Blood Count 7.3 K/mm3 (4.4-11.0)
[2024-01-29 00:15] LABS: AST(SGOT) 21 U/L (15-37); Alanine Aminotransfer ALT/SGPT 18 U/L (13-56); Albumin, Serum 3.7 g/dL (3.2-5.0); Alkaline Phosphatase 52 U/L (45-117); Anion Gap 10 (5-15); BUN 27 mg/dL (7-18); BUN/Creat Ratio 33.2 RATIO (10-20); Bilirubin, Direct 0.09 mg/dL (0.00-0.30); Calcium,Total 9.4 mg/dL (8.5-10.1); Chloride 105 mmol/L (98-107); Creatinine, Serum 0.81 mg/dL (0.55-1.02); EST Glomerular Filtration Rate 74 mL/min (>60); Est Glom Filt Rate - Afr Amer 89 mL/min (>60); Estimated Creatinine Clearance 55.01 ml/min; Glucose 110 mg/dL (74-106); Potassium 4.1 mmol/L (3.5-5.1); Protein, Total 7.7 g/dL (6.4-8.2); Sodium Level 140 mmol/L (136-145); Thyroid Stim Hormone (TSH) 4.95 uIU/mL (0.358-3.74); Troponin-I HS (w/2H Reflex) 31 pg/mL (3.0-54.0)
[2024-01-29 01:14] VITALS: BP 117/81; PULSE 75; RESP 12; O2SAT 97
[2024-01-29 01:37] LABS: Reflex Troponin-HS? (from REC) Y
[2024-01-29 02:01] LABS: Troponin-I HS 94 pg/mL (3.0-54.0)
--- NOTE | 2024-01-29 02:16 | PCM.HP.STD ---
HPI - General General Date of Admission: 01/29/24 Date of Service: 01/29/24 Chief Complaint: Palpitations. HPI Narrative SHANE RAMIREZ, is a 73 F with a past medical history of asthma, history of chest pain; with negative stress test in July 2023, history of osteoporosis; on Prolia, neuropathy, history of ganglion cyst (2022), osteoarthritis and recently diagnosed blocked oil duct with suspected mild persistent infection of the Left eye for which she was recently started on oral Doxycycline two days ago who presents to [facility] ER complaining of palpitations. Ms. Ramirez reports her symptoms began at approximately 8 PM on January 28, 2024 when she began to experience a rapid-onset of elevated heart rate with her Apple Watch indicating speeds of 130 to 150 bpm. She also admits to associated chest tightness that was slight, precordial and nonradiating with associated nausea but she denies vomiting, abdominal pain, shortness of breath, lightheadedness or dizziness. She denies excessive caffeine use, increased rescue inhaler use, recent travel, recent asthma exacerbation or similar previous episodes but both the patient and her daughter suspect her issues are related to an adverse drug reaction to her recently started oral Doxycycline. There is no report of fever, chills, diarrhea, constipation, chest pain or diaphoresis. In the ER her initial EKG revealed accelerated atrial ventricular junctional rhythm @ ~127 bpm suspected to be due an adverse drug reaction to recently started oral Doxycycline (with this agent now added to her list of allergies) with CXR revealing only hyperexpansion as can be seen with COPD with no radiographic evidence of consolidative pneumonia or florid edema with the patient then quickly converted back to normal sinus rhythm at 85 bpm with EKG showing no signs of ischemia though her troponin had increased from initial troponin of 31 pg/mL and a 2-hour repeat troponin increased to 94 pg/mL consistent with suspected troponin leak due to acute cardiac strain and she was then admitted to the PCU under observation status for ongoing care and monitoring for stay that is expected to be less than 2 midnights. [facility] Medical History Asthma Arthritis Home Medications ?Medication ?Instructions ?Recorded ?Last Taken ?Type albuterol sulfate 90 mcg/actuation 2 puff inhalation Q4H PRN 01/28/24 Unknown History aerosol inhaler shortness of breath or wheezing beclomethasone dipropionate 80 2 inh inhalation BID 01/28/24 Unknown History mcg/actuation HFA breath activated aerosol (Qvar RediHaler) denosumab 60 mg/mL subcutaneous 60 mg subcut .[id number] 01/28/24 Unknown History syringe (Prolia) doxycycline hyclate 100 mg tablet 50 mg PO BID 01/28/24 Unknown History fluticasone furoate 100 1 inh inhalation DAILY 01/28/24 Unknown History mcg/actuation blister powder for inhalation (Arnuity Ellipta) gabapentin 300 mg capsule 300 mg PO Q12H 01/28/24 Unknown History meloxicam 7.5 mg tablet 7.5 mg PO DAILY 01/28/24 Unknown History montelukast 10 mg tablet 10 mg PO QHS 01/28/24 Unknown History Allergy/AdvReac Type Severity Reaction Status Date / Time doxycycline AdvReac Intermediate Other Verified 01/29/24 03:39 Penicillins AdvReac Mild Nausea Verified 01/28/24 23:22 Sulfa (Sulfonamide AdvReac Mild Nausea Verified 01/28/24 23:22 Antibiotics) Social History Smoking Status: Never smoker ROS ROS Narrative Review of systems: General: Patient denies fever or chills. HENT: Denies headache, denies stuffy nose, denies sore throat EYES: Denies changes in vision or discharge from eyes. Resp: Denies cough, denies shortness of breath Cardiac: Patient admits to chest pressure and palpitations but she denies chest pain. GI: Denies abdominal pain, denies changes in bowel, had some nausea but denies vomiting : Denies changes in urination Extremity: Denies swelling Musculoskeletal: Patient denies arthralgias or myalgias. Neuro: Patient denies headache, paresthesias or focal neurologic deficits. Heme: Denies any bleeding or bruising Skin: Denies rashes Psychiatric: No complaints voiced related to uncontrolled depression or anxiety. Endocrine: No polyuria, polydipsia or polyphagia. The rest of the 14 point ROS was negative except for positives in HPI. Vital Signs Vital Signs Vital Signs: 01/28/24 23:17 01/29/24 01:14 Temperature 98.1 F Temperature Source Temporal Pulse Rate 130 H 75 Respiratory Rate 18 12 Blood Pressure 132/100 H 117/81 H Blood Pressure Mean 110 93 Pulse Ox 98 97 Oxygen Delivery Method Room Air Room Air Weight Weight: 132 lb Body Mass Index (BMI) 22.6 Physical Exam Const alert, oriented x3, no apparent distress, average body habitus and healthy appearing General Appearance: cooperative HEENT normocephalic, head/scalp atraumatic, hearing grossly normal bilaterally and moist oral mucous membranes Eyes PERRL and EOMs intact bilaterally Neck no lymphadenopathy and supple Resp normal respiratory effort, no retractions, no use of accessory muscles and clear to auscultation bilaterally Cardio regular rate and regular rhythm GI normal to inspection, nondistended, normoactive bowel sounds, soft to palpation, non-tender and non-distended Extremity normal to inspection, full ROM and no clubbing, cyanosis or edema Skin Skin Narrative: Patient has no evidence of abscess, rash or jaundice Neuro oriented x3, CN's II-XII intact bilaterally, moves all extremities and no focal motor deficits Sensorium / Orientation: awake, alert, oriented to person, oriented to place and oriented to time Speech: speech normal Psych affect normal Results Medical Records Data Attestation: I reviewed the patient's medical records Lab / Micro Data Attestation: I reviewed the patient's lab results. 01/28/24 23:31 01/28/24 23:31 Labs: Laboratory Results - last 24 hr 01/28/24 23:31: WBC 7.3, RBC 4.16 L, Hgb 12.3, Hct 37.6, MCV 90.4, MCH 29.6, MCHC 32.7, RDW Std Deviation 44.4 H, RDW Coeff of Angy 13.3, Plt Count 288, MPV 9.3, Immature Gran % (Auto) 0.100, Neut % (Auto) 48.1, Lymph % (Auto) 38.1, Castro % (Auto) 9.8, Eos % (Auto) 3.1, Baso % (Auto) 0.8, Absolute Neuts (auto) 3.5, Absolute Lymphs (auto) 2.79, Nucleated RBC % 0, Sodium 140, Potassium 4.1, Chloride 105, Carbon Dioxide 25.0, Anion Gap 10, BUN 27 H, Creatinine 0.81, Estim Creat Clear Calc 55.01, Est GFR (MDRD) Af Amer 89, Est GFR (MDRD) Non-Af 74, BUN/Creatinine Ratio 33.2 H, Glucose 110 H, Calcium 9.4, Total Bilirubin 0.40, Direct Bilirubin 0.09, AST 21, ALT 18, Alkaline Phosphatase 52, Troponin I High Sens 31, Total Protein 7.7, Albumin 3.7, Globulin 4.0, TSH 4.95 H 01/29/24 01:39: Troponin I High Sens 94 H Imaging Radiology Impression Chest X-Ray 01/28/24 23:24 IMPRESSION: Hyperexpansion as can be seen with chronic obstructive pulmonary disease. No radiographic evidence of consolidative pneumonia or florid edema. Electronically Signed: Yassine Whittington MD at 0:14 EDT , Assessment & Plan Assessment/Plan (1) Accelerated atrioventricular junctional rhythm: (2) Elevated troponin: (3) Chest pressure: (4) Adverse drug reaction: QUALIFIERS: Encounter type: initial encounter Qualified Code(s): T50.905A - Adverse effect of unspecified drugs, medicaments and biological substances, initial encounter (5) Chronic asthma: QUALIFIERS: Asthma complication type: unspecified Asthma persistence: unspecified Asthma severity: unspecified severity Qualified Code(s): J45.909 - Unspecified asthma, uncomplicated PLAN: Plan 1. EKG revealed accelerated atrial ventricular junctional rhythm @ ~127 bpm followed by spontaneous conversion back to normal sinus rhythm - Admit to PCU under observation status. Maintain on telemetric monitoring in case of possible recurrence. Beta-blockers would be a suboptimal choice in this patient with severe and longstanding asthma with plan for initiation of oral Cardizem in case of recurrence. Give Zofran IV as needed for nausea. Give Tylenol as needed for pain or fever. 2. Troponin had increased from initial troponin of 31 pg/mL and a 2-hour repeat troponin increased to 94 pg/mL consistent with suspected troponin leak due to acute cardiac strain arising from #1 - Serialize troponin. Give baby aspirin and check lipid profile. Recent negative stress test in July 2023 noted. Check echocardiogram to evaluate LVEF. TSH normal when adjusted for age at 4.95. 3. Suspected adverse drug reaction to Doxycycline used to treat suspected infection in Left eye with blocked oil duct and persistent mild irritation since a mission trip precipitating #1 & #2 - Add doxycycline to list of allergies to prevent recurrence though admittedly this agent is rarely associated with cardiac side effects. Start Cipro 0.3% eye drops q. 4 hours to treat potential infection and help resolve oil duct obstruction. 4. Chronic asthma - Stable and without evidence of acute flare at this time. Continue scheduled and as needed nebulizers/inhalers plus daily montelukast. Non-acute CXR noted above. 5. Osteoporosis; on Prolia - Stable. Resume this agent as outpatient. 6. Neuropathy - Continue gabapentin as previous. 7. History of ganglion cyst (2022) - Resolved. 8. Osteoarthritis - Hold meloxicam in light of #2. Give Tylenol as needed. 9. DVT prophylaxis - Lovenox 40 mg subcu daily. Total time: Approximately 85 minutes. Charges/Coding Visit Charges OBSV E&M: 32928 Observ/hosp same date L2
--- NOTE | 2024-01-29 02:48 | ECHOD_ITS ---
Reason For Study: OTHER Procedure This was a 2D Doppler, Color Flow transthoracic echocardiogram. Exam performed portable in patient room. Left Ventricle Normal LV size. Left ventricular systolic function is normal. The left ventricular ejection fraction is 55 %. No regional wall motion abnormalities noted. Right Ventricle Normal RV size. Normal systolic function. Atria Normal left atrium. Normal right atrium. Mitral Valve Normal mitral valve. Tricuspid Valve Normal tricuspid valve. Mild tricuspid valve insufficiency. Pulmonary artery systolic pressure is 26 mmHg. Aortic Valve Trisinus/trileaflet aortic valve. Pulmonic Valve Normal pulmonic valve. Great Vessels Normal aortic root. The pulmonary artery is normal size. Normal inferior vena cava. Pericardium/Pleural No pericardial effusion. MMode/2D Measurements & Calculations LVIDd: 4.5 cm IVSd: 0.64 cm LVOT diam: 2.0 cm LVIDs: 3.2 cm LVPWd: 0.76 cm LVOT area: 3.2 cm2 FS: 28.4 % Ao root diam: 3.3 cm LAV(MOD-bp): 36.1 ml LVAd ap4: 25.5 cm2 LAV(MOD-bp) Indexed: 22.1 ml/m2 LVLd ap4: 7.4 cm LAV(MOD-sp2): 35.4 ml EDV(MOD-sp4): 75.9 ml LAV(MOD-sp4): 27.2 ml EDV(sp4-el): 74.1 ml LVAs ap4: 12.7 cm2 LVLs ap4: 5.5 cm ESV(MOD-sp4): 25.5 ml ESV(sp4-el): 24.8 ml EF(MOD-sp4): 66.5 % EF(sp4-el): 66.5 % SV(MOD-sp4): 50.5 ml SV(sp4-el): 49.2 ml LA A4 area: 11.4 cm2 LA dimension(2D): 2.8 cm RA A4 area: 14.9 cm2 TAPSE: 2.4 cm Time Measurements MV dec time: 0.16 sec Doppler Measurements & Calculations MV E max gutierrez: 58.7 cm/sec Lat Peak E' Gutierrez: 10.5 cm/sec Med Peak E' Gutierrez: 9.2 cm/sec MV A max gutierrez: 61.9 cm/sec E/E' lat: 5.6 E/E' med: 6.4 MV E/A: 0.95 Ao V2 max: 141.7 cm/sec LV V1 max: 100.7 cm/sec MV dec slope: 364.1 cm/sec2 Ao max P.0 mmHg LV V1 max P.1 mmHg Ao V2 mean: 98.9 cm/sec LV V1 mean P.1 mmHg Ao mean P.5 mmHg LV V1 mean: 67.3 cm/sec Ao V2 VTI: 32.9 cm LV V1 VTI: 21.9 cm AV (velocity ratio): 0.67 CHIKA(I,D): 2.1 cm2 CHIKA(V,D): 2.2 cm2 SV(LVOT): 69.5 ml PA V2 max: 71.9 cm/sec PI end-d gutierrez: 77.3 cm/sec PA max PG (full): 0.76 mmHg TR max gutierrez: 237.6 cm/sec TR max P.6 mmHg ECHO/Echo Complete Interpretation Summary Normal LV size. Left ventricular systolic function is normal. No regional wall motion abnormalities noted. The left ventricular ejection fraction is 55 %. Pulmonary artery systolic pressure is 26 mmHg. Structurally normal valves. Ordering Physician: Odin Ware Referring Physician: JOAN HEIN Performed By: Cherelle Saldana and Student
[2024-01-29 03:00] VITALS: BP 127/87; PULSE 74; RESP 16; TEMP 36.6; O2SAT 98
[2024-01-29 03:01] LABS: Magnesium 2.2 mg/dL (1.6-2.6); Phosphorus 4.1 mg/dL (2.5-4.9)
[2024-01-29 03:25] VITALS: BP 122/80; PULSE 72; RESP 18; TEMP 36.3; O2SAT 98; BMI 22.6
[2024-01-29] MEDS: 0.9% Normal Saline (1000mL) 1,000 ML 70 ML IV (04:30)
[2024-01-29] MEDS: Aspirin 81 MG TAB.CHEW PO (04:30)
[2024-01-29] MEDS: Ciprofloxacin 0.3% 2.5ml Bottle 1 DRP LEFT EYE ×3 (05:25→14:02)
[2024-01-29 05:39] VITALS: BMI 22.6
--- NOTE | 2024-01-29 07:18 | PCM.PN.HOSP ---
Reason for Visit Reason for Visit: Diagnoses Other specified cardiac arrhythmias (01/29/24) Unspecified asthma, uncomplicated (01/29/24) Other chest pain (01/29/24) Chest pain, unspecified (01/29/24) Other specified abnormal findings of blood chemistry (01/29/24) Adverse effect of unspecified drugs, medicaments and biological substances, initial encounter (01/29/24) Subjective Subjective 73-year-old female with history of asthma, osteoporosis on Prolia, neuropathy, ganglion cyst, osteoarthritis, was admitted last night from the ED for concerns regarding ongoing palpitations. Her EKG revealed accelerated atrioventricular junctional rhythm off around 127 bpm suspected to be due to an adverse drug reaction to oral doxycycline. Her evaluation for ischemia was negative but troponin increased from 31-94 PG/mL consistent with acute cardiac strain. She is being admitted for further observation and management. Objective Data Objective Data Vital Signs: Vital Signs Temp Pulse Resp BP Pulse Ox O2 Del Method 97.4 F L 72 18 122/80 H 98 Room Air 01/29/24 03:25 01/29/24 03:25 01/29/24 03:25 01/29/24 03:25 01/29/24 03:25 01/29/24 04:51 Oxygen Delivery Method Room Air Weight: 131 lb 13.383 oz Body Mass Index (BMI) 22.6 Intake & Output: Intake and Output for Last 24 Hours 01/27/24 01/28/24 01/29/24 23:59 23:59 23:59 Intake Total 1000 / 1000 Balance 1000 / 1000 Lab / Micro Data 01/29/24 05:39 01/29/24 05:39 Labs: Laboratory Results - last 24 hr 01/28/24 23:31: WBC 7.3, RBC 4.16 L, Hgb 12.3, Hct 37.6, MCV 90.4, MCH 29.6, MCHC 32.7, RDW Std Deviation 44.4 H, RDW Coeff of Angy 13.3, Plt Count 288, MPV 9.3, Immature Gran % (Auto) 0.100, Neut % (Auto) 48.1, Lymph % (Auto) 38.1, Sharkey % (Auto) 9.8, Eos % (Auto) 3.1, Baso % (Auto) 0.8, Absolute Neuts (auto) 3.5, Absolute Lymphs (auto) 2.79, Nucleated RBC % 0, Sodium 140, Potassium 4.1, Chloride 105, Carbon Dioxide 25.0, Anion Gap 10, BUN 27 H, Creatinine 0.81, Estim Creat Clear Calc 55.01, Est GFR (MDRD) Af Amer 89, Est GFR (MDRD) Non-Af 74, BUN/Creatinine Ratio 33.2 H, Glucose 110 H, Calcium 9.4, Total Bilirubin 0.40, Direct Bilirubin 0.09, AST 21, ALT 18, Alkaline Phosphatase 52, Troponin I High Sens 31, Total Protein 7.7, Albumin 3.7, Globulin 4.0, TSH 4.95 H 01/29/24 01:39: Troponin I High Sens 94 H 01/29/24 02:50: Phosphorus 4.1, Magnesium 2.2 Radiography Diagnostic Testing: Radiology Impression Chest X-Ray 01/28/24 23:24 IMPRESSION: Hyperexpansion as can be seen with chronic obstructive pulmonary disease. No radiographic evidence of consolidative pneumonia or florid edema. Electronically Signed: Yassine Whittington MD at 0:14 EDT Reading Location ID and State: [facility] / [place] Tel , Service support , Physical Exam Const alert, oriented x3, no apparent distress, average body habitus and healthy appearing General Appearance: cooperative HEENT normocephalic, head/scalp atraumatic, hearing grossly normal bilaterally and moist oral mucous membranes Eyes PERRL and EOMs intact bilaterally Neck no lymphadenopathy and supple Resp normal respiratory effort, no retractions, no use of accessory muscles and clear to auscultation bilaterally Cardio regular rate and regular rhythm GI normal to inspection, nondistended, normoactive bowel sounds, soft to palpation, non-tender and non-distended Extremity normal to inspection, full ROM and no clubbing, cyanosis or edema Skin no rashes or lesions noted Skin Narrative: Patient has no evidence of abscess, rash or jaundice Neuro oriented x3, CN's II-XII intact bilaterally, moves all extremities and no focal motor deficits Sensorium / Orientation: awake, alert, oriented to person, oriented to place and oriented to time Speech: speech normal Psych affect normal Assessment & Plan Assessment/Plan (1) Accelerated atrioventricular junctional rhythm: (2) Chest pressure: (3) Adverse drug reaction: QUALIFIERS: Encounter type: initial encounter Qualified Code(s): T50.905A - Adverse effect of unspecified drugs, medicaments and biological substances, initial encounter PLAN: Plan 73-year-old female is admitted under observation for evaluation management of palpitations and associated elevated troponin levels. Her stress test was recently negative on July 2023. #accelerated atrioventricular junctional rhythm: -Continue telemetry monitoring -Will consult initiation of Cardizem if there is a recurrence of the rhythm #Troponin increase: -Follow-up on echocardiogram -If any further chest pain/rising troponin levels will consider cardiology consult #Chronic asthma: -Continue home as needed nebulizers and inhalers with montelukast. #Osteoporosis: On Prolia, Continue same #Neuropathy: Continue gabapentin #Ganglion cyst resolved #Osteoarthritis: Tylenol as needed #DVT prophylaxis: Levofloxacin 40 mg subcu
[2024-01-29 07:20] LABS: ALB/GLOB Ratio 0.9 RATIO (0.9-2.4); AST(SGOT) 26 U/L (15-37); Alanine Aminotransfer ALT/SGPT 16 U/L (13-56); Albumin, Serum 3.3 g/dL (3.2-5.0); Alkaline Phosphatase 36 U/L (45-117); Anion Gap 6 (5-15); BUN 21 mg/dL (7-18); BUN/Creat Ratio 32.1 RATIO (10-20); Calcium,Total 8.6 mg/dL (8.5-10.1); Chloride 108 mmol/L (98-107); Creatinine, Serum 0.66 mg/dL (0.55-1.02); EST Glomerular Filtration Rate 94 mL/min (>60); Est Glom Filt Rate - Afr Amer 114 mL/min (>60); Globulin 3.6 g/dL (2.2-4.2); Glucose 86 mg/dL (74-106); Protein, Total 6.9 g/dL (6.4-8.2); Sodium Level 140 mmol/L (136-145)
[2024-01-29 07:26] LABS: Troponin-I HS 86 pg/mL (3.0-54.0)
[2024-01-29 07:36] LABS: Absolute Lymphocyte Count 2.14 X10^3/uL (0.83-4.51); Absolute Neutrophil Count 3.4 X10^3/uL (2.0-7.7); Basophil# 0.06 X10^3/uL; Basophil% 0.9 % (0-1); Eosinophil# 0.22 X10^3/uL; Eosinophils% 3.5 % (0-5); Hematocrit 35.4 % (37-47); Hemoglobin 11.3 g/dL (12.0-15.0); Lymphocyte # 2.14 X10^3/ul (0.83-4.51); Lymphocyte % 33.7 % (19-41); Mean Corp Hgb Conc 31.9 g/dL (32-36); Mean Corpuscular Hgb 29.4 pg (27.0-32.0); Mean Corpuscular Volume 91.9 fL (81-99); Mean Platelet Vol. 9.7 fl (6.2-12.0); Monocyte# 0.55 X10^3/uL; Monocyte% 8.7 % (0-10); NRBC Flagged by Analyzer 0 % (0-5); Neutrophil # 3.36 X10^3/uL (2.7-7.7); Neutrophil % 52.9 % (47-70); Platelet Count 252 K/mm3 (150-450); RBC Distribution Width CV 13.4 % (11.6-14.6); RBC Distribution Width SD 45.3 fl (35.1-43.9); Red Blood Count 3.85 M/mm3 (4.2-5.4); White Blood Count 6.4 K/mm3 (4.4-11.0)
[2024-01-29 08:39] LABS: Cholesterol 260 mg/dL (200); High Density Lipoprotein 75 mg/dL; T4 Free Direct 0.95 ng/dL (0.76-1.46); Triglycerides 197 mg/dL; Very Low Density Lipoprotein 39 mg/dL (5-40)
[2024-01-29] MEDS: Budesonide Respules 0.5 MG/2 ML AMPUL.NEB. INHALATION (09:17)
[2024-01-29 09:18] VITALS: PULSE 93; RESP 16; O2SAT 96
[2024-01-29] MEDS: Gabapentin 300 MG Capsule PO (10:58)
--- NOTE | 2024-01-29 11:40 | CASEMGMT ---
JOHANNA STEELE NOTE: JOHANNA CM to room. Pt resting in bed. Introduced self and role. Pt states she lives w/her and is independent and manages her own medications. Pt denies having any discharge needs/concerns. Geoffrey MCKAY RN, CM
[2024-01-29 14:00] VITALS: BP 132/76; PULSE 60; RESP 16; TEMP 36; O2SAT 99
--- NOTE | 2024-01-29 15:23 | PCM.DC.SUM ---
Providers Date of Admission: 01/29/24 Date of Discharge: 01/29/24 Primary Care Physician: Dr. Joan Hein MD Reason For Visit: ACCELERATED AV-JUNCTIONAL RHYTHM W/INC Diagnosis Discharge Diagnosis (1) Accelerated atrioventricular junctional rhythm: Status: Acute Code(s): I49.8 - Other specified cardiac arrhythmias (2) Elevated troponin: Status: Acute Code(s): R79.89 - Other specified abnormal findings of blood chemistry (3) Chest pressure: Status: Acute Code(s): R07.89 - Other chest pain (4) Adverse drug reaction: Status: Acute Code(s): T50.905A - Adverse effect of unspecified drugs, medicaments and biological substances, initial encounter Qualifiers: Encounter type: initial encounter Qualified Code(s): T50.905A - Adverse effect of unspecified drugs, medicaments and biological substances, initial encounter (5) Chronic asthma: Status: Chronic Code(s): J45.909 - Unspecified asthma, uncomplicated Qualifiers: Asthma severity: unspecified severity Asthma persistence: unspecified Asthma complication type: unspecified Qualified Code(s): J45.909 - Unspecified asthma, uncomplicated Plan 73-year-old female is admitted under observation for evaluation management of palpitations and associated elevated troponin levels. Her stress test was recently negative back in July 2023. Her rhythm during her observation was sinus and normal. No runs of tachycardia. Echocardiogram was normal ejection fraction no valvular changes. She will follow-up with cardiology as an outpatient. The tachycardia rhythm was considered a side effect of doxycycline. For this reason it was discontinued and she was started on ciprofloxacin 0.3% eyedrops for her blocked duct Medications at Discharge Home Medications albuterol sulfate 90 mcg/actuation aerosol inhaler 2 puff inhalation Q4H PRN shortness of breath or wheezing 01/28/24 beclomethasone dipropionate 80 mcg/actuation HFA breath activated aerosol (Qvar RediHaler) 2 inh inhalation BID 01/28/24 denosumab 60 mg/mL subcutaneous syringe (Prolia) 60 mg subcut .[id number] 01/28/24 fluticasone furoate 100 mcg/actuation blister powder for inhalation (Arnuity Ellipta) 1 inh inhalation DAILY 01/28/24 gabapentin 300 mg capsule 300 mg PO Q12H 01/28/24 meloxicam 7.5 mg tablet 7.5 mg PO DAILY 01/28/24 montelukast 10 mg tablet 10 mg PO QHS 01/28/24 ciprofloxacin HCl 0.3 % eye drops 1 drp LEFT EYE Q4 #5 mL 01/29/24 Hospital Course Summary of Care Provided Hospital Course: 73-year-old female was admitted to the hospital with concerns regarding accelerated idioventricular junctional rhythm for further monitoring. After overnight monitoring her heart rate was in sinus rhythm and regular. Echocardiogram was done which showed normal ejection fraction. The tachycardia rhythm was considered a side effect of doxycycline. 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 #Troponin increase: -No changes on echocardiogram, patient has no symptoms at this time, stress test was recently negative #Chronic asthma: -Continue home as needed nebulizers and inhalers with montelukast. #Osteoporosis: On Prolia, Continue same #Neuropathy: Continue gabapentin #Ganglion cyst resolved #Osteoarthritis: Tylenol as needed #DVT prophylaxis: Levofloxacin 40 mg subcu Physical Exam Const alert and oriented x3 HEENT normocephalic Eyes PERRL Neck no lymphadenopathy Resp normal respiratory effort Cardio regular rate and regular rhythm GI normal to inspection, nondistended, normoactive bowel sounds Extremity normal to inspection Skin no rashes or lesions noted Neuro oriented x3 Psych affect normal Weight / BMI Weight Weight: 131 lb 13.383 oz Body Mass Index (BMI) 22.6 ABG / Lab / Microbiology Data 01/29/24 05:39 01/29/24 05:39 Laboratory: Laboratory Results - last 24 hr 01/28/24 23:31: WBC 7.3, RBC 4.16 L, Hgb 12.3, Hct 37.6, MCV 90.4, MCH 29.6, MCHC 32.7, RDW Std Deviation 44.4 H, RDW Coeff of Angy 13.3, Plt Count 288, MPV 9.3, Immature Gran % (Auto) 0.100, Neut % (Auto) 48.1, Lymph % (Auto) 38.1, Walton % (Auto) 9.8, Eos % (Auto) 3.1, Baso % (Auto) 0.8, Absolute Neuts (auto) 3.5, Absolute Lymphs (auto) 2.79, Nucleated RBC % 0, Sodium 140, Potassium 4.1, Chloride 105, Carbon Dioxide 25.0, Anion Gap 10, BUN 27 H, Creatinine 0.81, Estim Creat Clear Calc 55.01, Est GFR (MDRD) Af Amer 89, Est GFR (MDRD) Non-Af 74, BUN/Creatinine Ratio 33.2 H, Glucose 110 H, Calcium 9.4, Total Bilirubin 0.40, Direct Bilirubin 0.09, AST 21, ALT 18, Alkaline Phosphatase 52, Troponin I High Sens 31, Total Protein 7.7, Albumin 3.7, Globulin 4.0, TSH 4.95 H 01/29/24 01:39: Troponin I High Sens 94 H 01/29/24 02:50: Phosphorus 4.1, Magnesium 2.2 01/29/24 05:39: WBC 6.4, RBC 3.85 L, Hgb 11.3 L, Hct 35.4 L, MCV 91.9, MCH 29.4, MCHC 31.9 L, RDW Std Deviation 45.3 H, RDW Coeff of Angy 13.4, Plt Count 252, MPV 9.7, Immature Gran % (Auto) 0.300, Neut % (Auto) 52.9, Lymph % (Auto) 33.7, Walton % (Auto) 8.7, Eos % (Auto) 3.5, Baso % (Auto) 0.9, Absolute Neuts (auto) 3.4, Absolute Lymphs (auto) 2.14, Nucleated RBC % 0, Sodium 140, Potassium 4.0, Chloride 108 H, Carbon Dioxide 26.0, Anion Gap 6, BUN 21 H, Creatinine 0.66, Estim Creat Clear Calc 55.70, Est GFR (MDRD) Af Amer 114, Est GFR (MDRD) Non-Af 94, BUN/Creatinine Ratio 32.1 H, Glucose 86, Calcium 8.6, Total Bilirubin 0.50, AST 26, ALT 16, Alkaline Phosphatase 36 L, Troponin I High Sens 86 H, Total Protein 6.9, Albumin 3.3, Globulin 3.6, Albumin/Globulin Ratio 0.9, Triglycerides 197, Cholesterol 260 H, LDL Cholesterol 146 H, VLDL Cholesterol 39, HDL Cholesterol 75, Free T4 0.95 Radiography Diagnostic Testing: Radiology Impression Chest X-Ray 01/28/24 23:24 IMPRESSION: Hyperexpansion as can be seen with chronic obstructive pulmonary disease. No radiographic evidence of consolidative pneumonia or florid edema. Electronically Signed: Yassine Whittington MD at 0:14 EDT Reading Location ID and State: [facility] / [place] Tel , Service support , Echocardiogram 01/29/24 02:48 Interpretation Summary Normal LV size. Left ventricular systolic function is normal. No regional wall motion abnormalities noted. The left ventricular ejection fraction is 55 %. Pulmonary artery systolic pressure is 26 mmHg. Structurally normal valves. Ordering Physician: Odin Ware Referring Physician: JOAN HEIN Performed By: Cherelle Saldana and Student D/C Instructions Discharge Diet: No restrictions Meaningful Use Info Meaningful Use Meaningful Use Diagnoses (Choose all that apply): None applicable Ischemic Stroke Statin Dosing Therapy Reference: STATIN DOSE THERAPY REFERENCE: * Patients > 75 years receive moderate or high dose statin therapy. * Patients 75 years or YOUNGER should receive HIGH intensity statin dose unless contraindicated. You will be required to document reason for non-treatment if statin daily dose does not meet guidelines. HIGH DOSE STATIN THERAPY DAILY Atorvastatin > than or = to 40 mg Rosuvastatin > than or = to 20 mg Amlodipine + Atorvastatin > than or = to 2.5/40 mg Ezetimibe + Simvastatin 10/80 mg Simvastatin 80mg Discharge Plan Admission Admit Date/Time: 01/29/24 02:42 Attending Provider: Inez Moya Primary Care Provider: Joan Hein Consulting Providers: Odin Ware Discharge Orders/Prescriptions Prescriptions: New ciprofloxacin HCl 0.3 % Drops 1 drp LEFT EYE Q4 Qty: 5 0RF Continued albuterol sulfate 90 mcg/actuation HFA aerosol inhaler 2 puff inhalation Q4H PRN (Reason: shortness of breath or wheezing) Qvar RediHaler 80 mcg/actuation HFA aerosol breath activated 2 inh inhalation BID Prolia 60 mg/mL syringe 60 mg subcut .[id number] gabapentin 300 mg capsule 300 mg PO Q12H Arnuity Ellipta 100 mcg/actuation blister with device 1 inh INHALATION DAILY meloxicam 7.5 mg tablet 7.5 mg PO DAILY montelukast 10 mg tablet 10 mg PO QHS Discontinued doxycycline hyclate 100 mg tablet 50 mg PO BID Referrals / Follow Up: Joan Hein MD [Primary Care Provider] - Disposition Disposition (needs filled in before D/C Order can be placed): Home, Self Care
== END 2024-01-29 16:19 | disposition home or self-care (01) ==
LOC: ED 01-29 02:15 → PCU 01-29 03:18
PROVIDERS: Admitting Provider Internal Medicine; Emergency Provider Emergency Medicine; PCP Family Medicine; Visit Provider Internal Medicine
DX: I49.8 Other specified cardiac arrhythmias (principal); R07.89 Other chest pain; R79.89 Other specified abnormal findings of blood chemistry; R00.2 Palpitations; Z79.51 Long term (current) use of inhaled steroids; R11.0 Nausea; T36.4X5A Adverse effect of tetracyclines, initial encounter; J45.909 Unspecified asthma, uncomplicated; G62.9 Polyneuropathy, unspecified; Z79.899 Other long term (current) drug therapy; M81.0 Age-related osteoporosis without current pathological fracture
CPT/HCPCS: 71045; 80048; 80053; 80061; 80076; 83735; 84100; 84439; 84443; 84484; 85025; 93005; 93306; 94640; 94668; 96360; 96361; 99221; 99252; 99285; J7030; A4216; G0378; G0463

== ENCOUNTER → 2024-08-31 | Outpatient (CLI) | payer MEDICARE, SELFPAY ==
--- NOTE | 2024-08-31 14:30 | NEURO ---
NCS and/or EMG Patient Report Ordering Doctor: Tacos Johnson DATE OF SERVICE: 08/31/24 Lupis presents with complaints of numbness and tingling in both feet. Electrodiagnostic findings: Peroneal motor nerve demonstrates normal distal latency, amplitude on the left side. There is decrease in conduction velocity across the fibular head. Right peroneal motor nerve demonstrates normal distal latency, amplitude with a drop in conduction across the fibular head. Tibial motor responses are within normal limits bilaterally. Sensory responses are normal. Normal peroneal and tibial F?waves. H?reflex normal bilaterally. Needle EMG testing shows no evidence of denervation with normal motor unit action potentials. Electrodiagnostic impression: This is an abnormal study. 1. 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 2. There is no electrodiagnostic evidence for peripheral polyneuropathy. 3. There is no electrodiagnostic evidence for lumbosacral radiculopathy. Multi Select Codes Neurology Neurology Interp Codes: 67546-72 Musc test done w/n test comp (interp) (2) and 93962-50 Nrv cndj test 9-10 studies (interp)
== END | disposition home or self-care (01) ==
LOC: PSN 08:23
PROVIDERS: PCP Family Medicine; Referring Provider Family Medicine; Visit Provider Family Medicine
DX: R20.0 Anesthesia of skin (principal); R20.2 Paresthesia of skin
CPT/HCPCS: 95886; 95911

== ENCOUNTER 2024-11-15 09:02 | Emergency (ER) | payer MEDICARE, SELFPAY ==
[2024-11-15 09:02] VITALS: BP 113/93; PULSE 147; RESP 19; TEMP 36.8; O2SAT 99; BMI 21.9
[2024-11-15 09:11] VITALS: BP 127/89; PULSE 133; RESP 16; O2SAT 97
--- NOTE | 2024-11-15 09:18 | EX.ED.DYSGE1 ---
HPI History of Present Illness Chief Complaint: Palpitations Informant: patient Onset/Context/Timing Onset: Today Context: Sudden Onset Timing: Continuous Quality: Racing, tightness Location: Chest Worsened by: Nothing Relieved by: Nothing Narrative Narrative: Patient presents with palpitations that began this morning. Patient states she feels like her heart is racing. Patient states that started about 5:30 AM today. Patient states it has been constant. Patient states nothing makes it better and nothing makes it worse. Patient admits to some slight shortness of breath. Patient denies any nausea or vomiting. Patient states she does have some pain into her upper back. Patient denies any fevers or chills. [facility] Medical History (Updated 11/15/24 @ 12:[address] Isai Landeros, DO) Chronic asthma Elevated troponin Chest pain Asthma Arthritis Home Medications ?Medication ?Instructions ?Recorded ?Last Taken ?Type albuterol sulfate 90 mcg/actuation 2 puff inhalation Q4H PRN 01/28/24 Unknown History aerosol inhaler shortness of breath or wheezing denosumab 60 mg/mL subcutaneous 60 mg subcut .[id number] bone health 01/28/24 10/04/24 History syringe (Prolia) gabapentin 300 mg capsule 300 mg PO Q12H nerve pain 01/28/24 11/15/24 History meloxicam 7.5 mg tablet 7.5 mg PO DAILY pain 01/28/24 11/15/24 History montelukast 10 mg tablet 10 mg PO QHS allergies 01/28/24 11/14/24 History beclomethasone dipropionate 40 2 inh inhalation BID 11/15/24 11/15/24 History mcg/actuation HFA breath activated aerosol (Qvar RediHaler) cyclosporine 0.05 % eye drops in a 1 drp ophthalmic (eye) BID 11/15/24 11/15/24 History dropperette (Restasis) fluticasone propionate 50 2 spray intranasal DAILY 11/15/24 11/15/24 History mcg/actuation nasal spray,suspension Allergy/AdvReac Type Severity Reaction Status Date / Time doxycycline AdvReac Intermediate Other Verified 11/15/24 09:06 Penicillins AdvReac Mild Nausea Verified 11/15/24 09:06 Sulfa (Sulfonamide AdvReac Mild Nausea Verified 11/15/24 09:06 Antibiotics) Surgical History (Updated 11/15/24 @ 09:[address] Isai Landeros DO) Hx of section Hx of rhinoplasty Social History Smoking Status: Never smoker ROS ROS ED Constitutional Constitutional ED: Denies chills or fever(s) Eyes Eyes: Denies blurry vision or change in vision ENT ENT ED: Denies rhinorrhea or sore throat Cardiovascular Cardiovascular: Reports chest pain and palpitations Respiratory/Chest Respiratory/Chest: Reports dyspnea; Denies cough Gastrointestinal Gastrointestinal: Denies nausea or vomiting Genitourinary Genitourinary ED: Denies dysuria or hematuria Musculoskeletal Musculoskeletal: Reports back pain and neck pain Integumentary Reports rash; Denies abscess Neurologic Neurologic: Denies headache(s) or weakness Allergic/Immunologic Allergic/Immunologic ED: Denies mouth swelling or urticaria EXAM Physical Exam Const Vital Signs: 11/15/24 09:02 11/15/24 09:02 11/15/24 09:11 Temperature 98.2 F Temperature Source Oral Pulse Rate 147 H 133 H Respiratory Rate 19 H 16 Respiratory Effort Normal Blood Pressure 113/93 H 127/89 H Blood Pressure Mean 99 101 Pulse Ox 99 97 Oxygen Delivery Method Room Air Room Air 11/15/24 10:11 11/15/24 11:00 11/15/24 12:00 Temperature Temperature Source Pulse Rate 81 63 75 Respiratory Rate 13 18 16 Respiratory Effort Blood Pressure 102/77 123/80 H 123/80 H Blood Pressure Mean 85 94 94 Pulse Ox 100 98 98 Oxygen Delivery Method Room Air 11/15/24 12:11 Temperature 98.6 F Temperature Source Pulse Rate 75 Respiratory Rate 16 Respiratory Effort Blood Pressure 123/80 H Blood Pressure Mean 94 Pulse Ox 98 Oxygen Delivery Method Positive well nourished and well developed Constitutional Narrative: BMI is 22.0 General Appearance ED: well developed and NAD HEENT Reports moist mucous membranes Neck supple and no JVD Resp normal respiratory effort and clear to auscultation bilaterally Cardio regular rhythm Rate: tachycardic GI non-tender and non-distended Palpation: soft Extremity normal to inspection General Extremety ED: Negative for edema or tenderness General Extremity: Negative for edema Neuro oriented x3, CN's II-XII intact bilaterally and no sensory deficits noted Sensorium / Orientation: alert Motor Exam: strength 5/5 throughout MDM MDM MDM Narrative Medical decision making narrative: Differential diagnosis includes cardiac dysrhythmia, cardiac ischemia, pneumonia, pneumothorax, electrolyte abnormality, and anxiety. EKG will be obtained to assess for cardiac dysrhythmia cardiac ischemia. Chest x-ray will be obtained to assess for pneumonia and pneumothorax. CBC will be obtained to assess for leukocytosis and anemia. Basic metabolic profile will be obtained to assess for electrolyte abnormality and renal function. High-sensitivity troponin will be obtained to assess for cardiac ischemia. 2-hour repeat high-sensitivity troponin will be obtained to assess for ongoing cardiac ischemia. History & Record Review Additional record(s) reviewed:: Prior outpatient record and Prior labs Lab Data Attestation: I reviewed the patient's lab results. Lab results narrative: CBC was reviewed and was within normal limits. Basic metabolic profile was reviewed and was essentially within normal limits. Initial high-sensitivity troponin was reviewed and was normal at 7. 2-hour repeat high-sensitivity troponin was reviewed and was normal at 12. Labs: Laboratory Results - last 24 hr 11/15/24 11/15/24 09:08 11:14 WBC 10.9 RBC 4.74 Hgb 14.1 Hct 42.0 MCV 88.6 MCH 29.7 MCHC 33.6 RDW Std Deviation 44.9 H RDW Coeff of Angy 13.9 Plt Count 350 MPV 9.4 Immature Gran % (Auto) 0.400 Neut % (Auto) 66.1 Lymph % (Auto) 22.1 White % (Auto) 8.1 Eos % (Auto) 2.1 Baso % (Auto) 1.2 H Absolute Neuts (auto) 7.2 Absolute Lymphs (auto) 2.42 Nucleated RBC % 0 Sodium 138 Potassium 4.3 Chloride 102 Carbon Dioxide 22.9 Anion Gap 13 BUN 20 H Creatinine 0.98 Estim Creat Clear Calc 44.81 L Est GFR (MDRD) Non-Af 61 BUN/Creatinine Ratio 20.3 H Glucose 105 H Calcium 9.9 Troponin T High Sens 7 Troponin T Hi Sens 2 Hr 12 Radiography Chest X-Ray - ED: 1 View, Read by ED Physician, Read by Radiologist and No Acute Disease Diagnostic Testing: Clinical Impression(s) from Imaging Studies Chest X-Ray 11/15/24 10:15 IMPRESSION: No acute cardiopulmonary process. Reading Location: [facility] Portable 1 view chest x-ray was obtained. On my independent interpretation, lung simeon are clear. There is normal cardiac silhouette. Bony thorax is normal. There is no acute process noted. Radiologist also interpreted the x-ray and agrees. EKG Initial EKG: Attestation: I personally reviewed and interpreted this EKG as follows: Interpretation: SVT (134) Comments: EKG was obtained. On my independent interpretation, it showed a supraventricular tachycardia with a rate of 134. QRS and QTc intervals were normal. [place] was normal. There are no acute ST or T wave changes. Prior EKG tracings: available for review Prior: Unchanged (01/28/2024 ) Follow-up EKG: Attestation: I personally reviewed and interpreted this EKG as follows: Interpretation: Sinus Rhythm (99) and No Acute Injury Pattern Comments: EKG was obtained. On my independent interpretation, it showed a normal sinus rhythm with a rate of 99. NE interval, QRS interval, and QTc intervals were all normal. [place] was normal. There are no acute ST or T wave changes. Prior EKG tracings: available for review Prior: Unchanged (01/28/2024) Treatment and Re-Evaluation :: Patient was given a dose of 6 mg of adenosine. Patient heart rate slowed down and a underlying sinus rhythm was identified. Patient went back into SVT after this. Patient was given a dose of 12 mg of adenosine. Patient had a sinus pause and then went to a normal sinus rhythm. Patient was feeling better after this. On reevaluation, patient was advised of her findings. Patient states she is feeling better. Patient was instructed to follow-up with her primary care physician in 5 to 7 days. Patient instructed to return if worse in any way. Patient understood and was agreeable with the plan. All questions were answered. Discharge Plan Triage Chief Complaint: Palpitations ED Provider: Isai Landeros Dx/Rx/DC Orders Clinical Impression: Supraventricular tachycardia, Asthma Instructions: ED Understanding Supraventricular Tachycardia (SVT) Prescriptions: No Action albuterol sulfate 90 mcg/actuation HFA aerosol inhaler 2 puff inhalation Q4H PRN (Reason: shortness of breath or wheezing) Prolia 60 mg/mL syringe 60 mg subcut .[id number] gabapentin 300 mg capsule 300 mg PO Q12H meloxicam 7.5 mg tablet 7.5 mg PO DAILY montelukast 10 mg tablet 10 mg PO QHS fluticasone propionate 50 mcg/actuation spray,suspension 2 spray INTRANASAL DAILY cyclosporine [Restasis] 0.05 % dropperette 1 drp ophthalmic (eye) BID Qvar RediHaler 40 mcg/actuation HFA aerosol breath activated 2 inh inhalation BID Primary Care Provider: Tacos Johnson Referrals: Tacos Johnson MD [Primary Care Provider] - 5-7 Days Print Language: Maldivian Disposition Disposition: Home, Self Care Discharge Date/Time: 11/15/24 12:12
[2024-11-15] MEDS: Adenosine 6 MG/2 ML Syringe IV (09:25)
[2024-11-15] MEDS: Adenosine 6 MG/2 ML Syringe 12 MG IV (09:33)
[2024-11-15 09:53] LABS: Absolute Lymphocyte Count 2.42 X10^3/uL (0.83-4.51); Absolute Neutrophil Count 7.2 X10^3/uL (2.0-7.7); Basophil# 0.13 X10^3/uL; Basophil% 1.2 % (0-1); Eosinophil# 0.23 X10^3/uL; Eosinophils% 2.1 % (0-5); Hemoglobin 14.1 g/dL (12.0-15.0); Lymphocyte # 2.42 X10^3/ul (0.83-4.51); Lymphocyte % 22.1 % (19-41); Mean Corp Hgb Conc 33.6 g/dL (32-36); Mean Corpuscular Hgb 29.7 pg (27.0-32.0); Mean Corpuscular Volume 88.6 fL (81-99); Mean Platelet Vol. 9.4 fl (6.2-12.0); Monocyte# 0.89 X10^3/uL; Monocyte% 8.1 % (0-10); NRBC Flagged by Analyzer 0 % (0-5); Neutrophil # 7.22 X10^3/uL (2.7-7.7); Neutrophil % 66.1 % (47-70); Platelet Count 350 K/mm3 (150-450); RBC Distribution Width CV 13.9 % (11.6-14.6); RBC Distribution Width SD 44.9 fl (35.1-43.9); Red Blood Count 4.74 M/mm3 (4.2-5.4); White Blood Count 10.9 K/mm3 (4.4-11.0)
[2024-11-15] MEDS: 0.9% Normal Saline (1000mL) 1,000 ML 1000 ML IV (10:04)
[2024-11-15 10:11] VITALS: BP 102/77; PULSE 81; RESP 13; O2SAT 100
--- NOTE | 2024-11-15 10:15 | RAD_ITS ---
EXAM: XR Chest, 1 View CLINICAL INDICATION: SHORTNESS OF BREATH TECHNIQUE: Frontal view of the chest. COMPARISON: No relevant prior studies available. FINDINGS: LUNGS AND PLEURAL SPACES: Unremarkable. No consolidation. No pneumothorax. HEART: Unremarkable. No cardiomegaly. MEDIASTINUM: Unremarkable. Normal mediastinal contour. BONES/JOINTS: Unremarkable. No acute fracture. RAD/Chest 1 View (Portable) IMPRESSION: No acute cardiopulmonary process. Reading Location: [facility]
[2024-11-15 10:58] LABS: Anion Gap 13 (5-15); BUN 20 mg/dL (4-19); BUN/Creat Ratio 20.3 RATIO (10-20); Calcium,Total 9.9 mg/dL (7.6-11.0); Carbon Dioxide 22.9 mmol/L (21.0-32.0); Chloride 102 mmol/L (98-108); Creatinine, Serum 0.98 mg/dL (0.70-1.20); EST Glomerular Filtration Rate 61 (>60); Estimated Creatinine Clearance 44.81 ml/min (50-250); Glucose 105 mg/dL (70-99); Potassium 4.3 mmol/L (3.3-5.1); Sodium Level 138 mmol/L (133-145)
[2024-11-15 11:00] VITALS: BP 123/80; PULSE 63; RESP 18; O2SAT 98
[2024-11-15 11:27] LABS: Troponin T High Sensitivity 7 ng/L (<=14)
[2024-11-15 11:42] LABS: Troponin T High Sens 2 HR 12 ng/L (<=14)
[2024-11-15 12:00] VITALS: BP 123/80; PULSE 75; RESP 16; O2SAT 98
[2024-11-15 12:11] VITALS: BP 123/80; PULSE 75; RESP 16; TEMP 37; O2SAT 98
== END 2024-11-15 12:12 | disposition home or self-care (01) ==
PROVIDERS: Emergency Provider Emergency Medicine; PCP Family Medicine; Visit Provider Emergency Medicine
DX: I47.10 Supraventricular tachycardia, unspecified (principal); J45.909 Unspecified asthma, uncomplicated; R07.9 Chest pain, unspecified; R06.00 Dyspnea, unspecified
CPT/HCPCS: 71045; 80048; 84484; 85025; 93005; 96360; 96361; 99284; A4216; J0153

== ENCOUNTER → 2025-01-20 | Outpatient (CLI) | payer MEDICARE, SELFPAY ==
--- OUTSIDE RECORDS SUMMARY | 2025-01-20 06:05 | XMS RPT_ITS | CCD ---
Author Organization [facility] Care Team Providers Care Trim Die Maker Name Role Phone [place] Funez DO Unavailable Tacos Hein MD Primary Care Provider Tacos Hein MD Primary Care Provider Tacos Hein MD Primary Care Provider Tacos Hein MD Primary Care Provider Dr. Tacos Hein Primary Care Provider Dr. Tacos Hein Referring Provider Dr. Tacos eHin Other Provider Dr. Rasta Alejandro Attending Provider Tacos Hein MD Primary Care Provider Tacos Hein MD Primary Care Provider Gildardo EXECUTIVE ADMINISTRATIVE ASSISTANT.Tess SPENCER Unavailable Madison Mariee PA-C Unavailable Rody Pablo PA-C Unavailable Dr. Tacos Hein MD Primary Care Provider Dr. Tacos Hein MD Attending Provider Dr. Tacos Hein MD Referring Provider Dr. Tacos Hein MD Other Provider Dr. Jackson Mcallister MD Attending Provider Dr. Isai Landeros DO Emergency Provider [place]le EXECUTIVE ADMINISTRATIVE ASSISTANT.SNOW RANGER, Tess Unavailable Gildardo EXECUTIVE ADMINISTRATIVE ASSISTANT.SNOW RANGER, Tess Unavailable Madison Mariee PA-C Unavailable Melvina, Tacos Referring Unavailable Melvina, Tacos Primary Care Unavailable Kailee Mcnair Attending Unavailable Melvina, Tacos Primary Care Unavailable Kailee Mcnair Attending Unavailable Kailee Mcnair Referring Unavailable Inez Moya Attending Unavailable Odin Ware Consulting Unavailable Melvina, Tacos Primary Care Unavailable Odin Ware Admitting Unavailable Rasta Alejandro Attending Unavailable Melvina, Tacos Primary Care Unavailable Jackson Mcallister Attending Unavailable Melvina, Tacos Consulting Unavailable Melvina, Tacos Referring Unavailable Melvina, Tacos Primary Care Unavailable Melvina, Tacos Primary Care Unavailable Odin Ware Consulting Unavailable Odin Ware Attending Unavailable Odin Ware Admitting Unavailable Melvina, Tacos Attending Unavailable Melvina, Tacos Referring Unavailable Melvina, Tacos Primary Care Unavailable Isai Landeros Attending Unavailable Melvina, Tacos Primary Care Unavailable Dr. Isai Landeros DO Attending Provider [phone]. Kailee Mcnair MD Attending Provider [phone] MELVINA, TACOS A Primary Care Unavailable QUEENER, RODY Referring Unavailable MELVINA, TACOS A Primary Care Unavailable QUEENER, RODY Referring Unavailable MELVINA, TACOS A Attending Unavailable MELVINA, TACOS A Primary Care Unavailable ALONA CRUZ Attending Unavailable MELVINA, TACOS A Primary Care Unavailable MELVINA, TACOS A Primary Care Unavailable TESS NAVARRETE Attending Unavailable MELVINA, TACOS A Referring Unavailable MELVINA, TACOS A Primary Care Unavailable MASCI, CODY A Attending Unavailable MELVINA, TACOS A Primary Care Unavailable QUEENER, RODY Referring Unavailable MASCI, CODY A Referring Unavailable MELVINA, TACOS A Primary Care Unavailable MELVINA, TACOS A Referring Unavailable MELVINA, TACOS A Primary Care Unavailable MELVINA, TACOS A Primary Care Unavailable QUEENER, RODY Referring Unavailable MELVINA, TACOS A Primary Care Unavailable MELVINA, TACOS A Attending Unavailable MELVINA, TACOS A Primary Care Unavailable MELVINA, TACOS A Referring Unavailable MELVINA, TACOS A Primary Care Unavailable QUEENER, RODY Referring Unavailable MELVINA, TACOS A Primary Care Unavailable QUEENER, RODY Referring Unavailable ROBERTO, BARRERA Attending Unavailable MELVINA, TACOS A Primary Care Unavailable QUEENER, RODY Referring Unavailable ROBERTO, BARRERA Attending Unavailable ROBERTO, BARRERA Attending Unavailable QUEENER, RODY Referring Unavailable MELVINA, TACOS A Primary Care Unavailable MELVINA, TACOS A Primary Care Unavailable MELVINA, TACOS A Primary Care Unavailable QUEENER, RODY Referring Unavailable ROBERTO, BARRERA Attending Unavailable QUEENER, RODY Referring Unavailable MELVINA, TACOS A Primary Care Unavailable CODY JULIAN Attending Unavailable MELVINA, TACOS A Primary Care Unavailable MELVINA, TACOS A Referring Unavailable MELVINA, TACOS A Primary Care Unavailable MELVINA, TACOS A Referring Unavailable MELVINA, TACOS A Primary Care Unavailable QUEENER, RODY Attending Unavailable MELVINA, TACOS A Primary Care Unavailable QUEENER, RODY Referring Unavailable MELVINA, TACOS A Referring Unavailable MELVINA, TACOS A Primary Care Unavailable MELVINA, TACOS A Primary Care Unavailable ALONA CRUZ Attending Unavailable MELVINA, TACOS A Primary Care Unavailable MELVINA, TACOS A Attending Unavailable Allergies Allergy Classification Reported Allergen(s) Allergy Type Date of Onset Reaction(s) Facility (20 sources) Mold Extract; Translations: [MOLD] Drug Allergy 09-23-19 17 Other: See Comments [facility] Work Phone: (1 source) Penicillin G Drug Allergy 09-23-19 17 [facility] Work Phone: (1 source) Sulfacetamide Drug Allergy 09-23-19 17 [facility] Work Phone: (1 source) STINGING INSECTS; Translations: [STINGING INSECTS] allergy to substance 08-22-19 22 [facility] Work Phone: (1 source) PLANT POLLENS; Translations: [PLANT POLLENS] allergy to substance 09-23-19 17 hay fever [facility] Work Phone: (14 sources) Penicillins; Translations: [PENICILLINS] Propensity to adverse reactions to drug 08-20-19 05 Unknown [facility] Work Phone: (20 sources) Pollen; Translations: [pollen extracts] Drug Allergy 02-10-20 19 Other: See Comments [facility] Work Phone: (20 sources) Sulfonamides (Antibiotic); Translations: [SULFA (SULFONAMIDE ANTIBIOTICS)] Propensity to adverse reactions to drug 08-20-19 05 Unknown [facility] Work Phone: (20 sources) Penicillins Propensity to adverse reactions to drug 08-20-19 05 Unknown [facility] Work Phone: (20 sources) Alendronate; Translations: [ALENDRONATE] Drug Allergy 07-09-20 GI Upset [facility] (20 sources) Ibandronate; Translations: [IBANDRONATE] Drug Allergy 07-09-20 GI Upset [facility] (20 sources) Clindamycin; Translations: [CLINDAMYCIN] Drug Allergy 02-22-20 23 Rash [facility] Work Phone: (4 sources) Penicillins Propensity to adverse reactions 08-03-19 24 Nausea [facility] (4 sources) Sulfonamides (Antibiotic) Propensity to adverse reactions 08-03-19 24 Nausea [facility] (20 sources) Doxycycline; Translations: [DOXYCYCLINE] Drug Allergy 02-01-20 Other: See Comments [facility] Comment on above: atrioventricular tac hycardia (14 sources) Penicillins Propensity to adverse reactions to drug 08-20-19 05 Unknown [facility] (1 source) Alendronate Drug Allergy 12-27-19 25 [facility] (1 source) Clindamycin Drug Allergy 12-27-19 25 [facility] (1 source) Doxycycline Drug Allergy 12-27-19 25 [facility] (1 source) Ibadronate Drug Allergy 12-27-19 25 [facility] (1 source) Penicillins Drug allergy (disorder) 12-27-19 25 [facility] (1 source) Sulfonamides (Antibiotic) Drug allergy (disorder) 12-27-19 25 [facility] Medications Current Medications Medication Drug Class(es) Dates Sig (Normalized) Sig (Original) [id number] 200 actuat albuterol 0.09 mg/actuat metered dose inhaler (20 sources) beta2-Adrenergic Agonist Start: 01-28-2024 Albuterol Sulfate 90 mcg/actuation HFA aerosol inhaler Active 2 NMA INHALATION Q4H as needed for shortness of breath or wheezing January 28, 2024 12:00am Start: 02-09-2019 End: 04-13-2023 take 2 puff(s) by inhalation every four hours as needed for wheezing albuterol HFA (VENTOLIN HFA) 90 mcg/actuation inhaler Inhale 2 Puffs as instructed every 4 hours as needed for wheezing/shortness of breath. 3 Each 2 04/13/2023 Active Start: 09-23-2016 PROAIR HFA 108 (90 Base) MCG/ACT AERS using inhaler as needed as directed albuterol sulfate [id number] Stephanie Juárez LPN Comment on above: Inhale 2 Puffs as in structed every 4 hours as needed for Wheezing/Shortness of Breath. azithromycin 250 mg oral tablet (1 source) Macrolide Antimicrobial Start: 2022 End: 2022 take 2 tablets by mouth once daily, then take 1 tablet by mouth once daily azithromycin (ZITHROMAX) 250 mg tablet Take 2 tablets by mouth once daily for 1 day, THEN 1 tablet once daily for 4 days. 6 tablet 0 12/31/2022 01/05/2023 Active Comment on above: Take 2 tablets by mo uth once daily for 1 day, THEN 1 tablet once daily for 4 days. Beclomethasone Dipropionate [Beclomethasone Dipropionate 40 Mcg/Actuation Hfa Breath Activated Aerosol] (20 sources) Corticosteroid Start: 2024 take 40 ug by inhalation twice daily Beclomethasone Dipropionate [Beclomethasone Dipropionate 40 Mcg/Actuation Hfa Breath Activated Aerosol] (Beclomethasone Dipropionate 40 Mcg/Actuation Hfa ) 40 mcg/actuation HFA aerosol breath activated Active 2 NMA INHALATION TWICE A DAY November 15, 2024 12:00am Start: 08-29-2024 take 2 puff(s) by in halation twice daily QVAR REDIHALER 40 mcg/actuation inhaler Inhale 2 Puffs as instructed two times a day. 08/29/2024 Active Start: 06-30-2024 End: 08-16-2024 take 2 puff(s) by inhalation twice daily beclomethasone (QVAR REDIHALER) 40 mcg/actuation inhaler Inhale 2 Puffs as instructed two times a day. 1 Each 06/30/2024 08/16/2024 Discontinued (Not on Formulary) Start: 01-28-2024 End: 11-15-2024 take 80 ug by inhalation twice daily Beclomethasone Dipropionate (Qvar Redihaler) 80 mcg/actuation HFA aerosol breath activated Discontinued 2 NMA INHALATION TWICE A DAY January 28, 2024 12:00am November 15, 2024 9:20am Start: 09-02-2023 End: 02-29-2024 take 2 puff(s) by inhalation twice daily beclomethasone (QVAR REDIHALER) 80 mcg/actuation inhaler Indications: Mild persistent asthma without complication Inhale 2 Puffs as instructed two times a day. 32 g 1 09/02/2023 11/18/2023 Discontinued (Not on Formulary) Start: 04-14-2023 End: 05-27-2023 take 2 puff(s) by inhalation twice daily beclomethasone (QVAR REDIHALER) 80 mcg/actuation inhaler Indications: Mild persistent asthma without complication Inhale 2 Puffs as instructed two times a day. 3 Each 3 05/27/2023 Active Comment on above: Inhale 2 Puffs as in structed twice daily. Inhale 2 Puffs as in structed two times a day. calcium carbonate 750 mg chewable tablet (20 sources) Start: 12-26-2024 take 1 tablet by mouth once daily Calcium Carbonate (Calcium Antacid) 300 mg (750 mg) tablet,chewable Active 300 mg PO daily December 26, 2024 12:00am take 1 tablet by mouth once abdullahi y calcium carbonate (CALCIUM 300 ORAL) Take 1 tablet by mouth once daily. Active calcium carbonat e (CALCIUM 300 ORAL) Take by mouth once daily. Active calcium carbonat e (CALCIUM 300 ORAL) Take by mouth once daily. 0 Active Comment on above: Take by mouth once d aily. cephalexin 500 mg oral capsule (1 source) Cephalosporin Antibacterial Start: 3 End: 3 take 1 capsule by mouth four times daily cephALEXin (KEFLEX) 500 mg capsule Take 1 capsule by mouth four times daily for 7 days. 28 capsule 0 02/21/2023 02/28/2023 Active Comment on above: Take 1 capsule by [facility] four times daily for 7 days. clindamycin 300 mg oral capsule (2 sources) Lincosamide Antibacterial Start: take 1 capsule by mouth three times daily Clindamycin Hcl 300 mg capsule Active 300 mg PO THREE TIMES A DAY December 27, 2024 12:00am Start: 02-17-2023 End: 02-24-2023 take 1 capsule by mouth four times daily clindamycin (CLEOCIN) 300 mg capsule Take 1 capsule by mouth four times daily for 7 days. 28 capsule 0 02/17/2023 02/24/2023 Active Comment on above: Take 1 capsule by [facility] four times daily for 7 days. cyclobenzaprine hydrochloride 10 mg oral tablet (5 sources) Muscle Relaxant Start: 2024 take 1 tablet by mouth every twelve hours as needed cyclobenzaprine (FLEXERIL) 10 mg tablet Take 1 tablet by mouth two times a day as needed. 40 tablet 12/26/2024 Active cycloSPORINE 0.5 mg/ml ophthalmic suspension (20 sources) Calcineurin Inhibitor Immunosuppressant Start: 2024 take 1 drop(s) into the eye(s) twice daily RESTASIS 0.05 % ophthalmic emulsion Use 1 Drop in both eyes two times a day. 08/29/2024 Active Start: 08-29-2024 take 1 drop(s) into the eye(s) every twelve hours RESTASIS 0.05 % ophthalmic emulsion Use 1 Drop in both eyes every 12 hours. 08/29/2024 Active Cyclosporine (Cyclosporine 0.05 % Eye Drops In A Dropperette) 0.05 % dropperette (2 sources) Start: 11-15-2024 Cyclosporine (Cyclosporine 0.05 % Eye Drops In A Dropperette) 0.05 % dropperette Active 1 NMA OPHTHALMIC TWICE A DAY November 15, 2024 12:00am DAILY MULTIVITAMIN TAB (20 sources) Start: 06-03-2006 take 1 tablet by mouth once daily DAILY MULTIVITAMIN TAB Take 1 tablet by mouth once daily. 0 06/03/2006 Active Start: 06-03-2006 DAILY MULTIVIT KOHLER TAB Take one(1) tablet daily. 0 06/03/2006 Active Comment on above: Take one(1) tablet d aily. 1 ml denosumab 60 mg/ml prefilled syringe (20 sources) RANK Ligand Inhibitor Start: 10-05-2024 End: 09-29-2025 denosumab 60 mg injection (PROLIA) Start: 10-05-2024 End: 09-29-2025 60 mg, SUBCUTANEOUS, EVERY 6 MONTHS, 2 doses, First dose on Thu10/05/24 at 0000, Last dose on Thu04/03/25 at 0000, Allow To Come To Room Temperature Before Administration. REFRIGERATE Start: 09-18-2023 End: 04-06-2024 60 mg, SUBCUTANEOUS, EVERY 6 MONTHS, 2 doses, First dose on Thu09/18/23 at 0000, Last dose on Thu03/16/24 at 0000, Allow To Come To Room Temperature Before Administration. REFRIGERATE Start: 09-18-2023 End: 09-11-2024 denosumab 60 mg injection (P ROLIA) Start: 08-14-2023 End: 09-22-2024 Denosumab (Prolia) 60 mg/mL syringe Active 60 mg SC [id number] January 28, 2024 12:00am Start: 07-16-2022 End: 07-10-2023 denosumab 60 mg injection (P ROLIA) Start: 02-07-2021 End: 02-01-2022 denosumab 60 mg injection (P ROLIA) Start: 01-30-2021 End: 03-19-2023 denosumab (PROLIA) 60 mg/mL Indications: Osteoporosis, unspecified osteoporosis type, unspecified pathological fracture presence 1 milliliter subcutaneously every 6 months. 1 mL 1 07/07/2022 03/19/2023 Discontinued PROLIA 60 MG/ML SOSY subcutaneously as directed 2 injections annually denosumab [id number] Stephanie Juárez LPN Comment on above: 1 milliliter subcuta neously every 6 months. folic acid 0.8 mg oral tablet (20 sources) Start: 12-26-2024 take 0.8 mg by mouth once daily Folic Acid 800 mcg tablet Active 0.8 mg PO daily December 26, 2024 12:00am Start: 02-03-2007 take 1 tablet by chuckie th once daily folic acid 800 mcg ORAL Tab Take 800 mcg by mouth once daily. 0 02/03/2007 Active Comment on above: Take one(1) tablet d aily. gabapentin 300 mg oral capsule (20 sources) Anti-epileptic Agent Start: 01-28-2024 take 1 capsule by mouth every twelve hours Gabapentin 300 mg capsule Active 300 mg PO Q12H January 28, 2024 12:00am Start: 02-12-2023 End: 03-25-2025 take 1 capsule by mouth twice daily gabapentin (NEURONTIN) 300 mg capsule Take 1 capsule by mouth two times a day for 180 days. 180 capsule 1 09/26/2024 03/25/2025 Active Start: 12-17-2021 End: 03-11-2023 take 1 capsule by mouth once daily at bedtime gabapentin (NEURONTIN) 300 mg capsule Take 1 capsule by mouth daily at bedtime for 180 days. 90 capsule 1 09/12/2022 03/11/2023 Active Comment on above: Take 1 capsule by mo [facility] daily at bedtime for 180 days. Take 1 capsule by mo [facility] twice daily for 180 days. L.ACID/L.CASEI/B.BIF/B .ROBIN/FOS (PROBIOTIC BLEND ORAL) (20 sources) take 1 tablet by mouth once daily L.ACID/L.CASEI/B.BIF /B.ROBIN/FOS (PROBIOTIC BLEND ORAL) Take 1 tablet by mouth once daily. Active L.ACID/L.CASEI/B .BIF/B.ROBIN/FOS (PROBIOTIC BLEND ORAL) Take by mouth. Active L.ACID/L.CASEI/B .BIF/B.ROBIN/FOS (PROBIOTIC BLEND ORAL) Take by mouth. 0 Active Comment on above: Take by mouth. L.acidoph,saliva-B.bif-S.t herm (Acidophilus Probiotic Blend) (1 source) Start: 12-26-2024 L.acidoph,sali va-B.bif-S. therm (Acidophilus Probiotic Blend) Active PO DAILY December 26, 2024 12:00am Melatonin (20 sources) Start: 12-26-2024 melatonin Acti ve PO BEDTIME as needed December 26, 2024 12:00am take 10 mg by mouth every twenty-four hours as needed MELATONIN ORAL Take 10 mg by mouth at bedtime as needed. Active MELATONIN ORAL T niesha by mouth as directed. Active MELATONIN ORAL T niesha by mouth as directed. 0 Active Comment on above: Take by mouth as dir ected. meloxicam 7.5 mg oral tablet (20 sources) Nonsteroidal Anti-inflammatory Drug Start: 02-12-2023 End: 06-28-2024 take 1 tablet by mouth once daily meloxicam (MOBIC) 7.5 mg tablet Take 1 tablet by mouth once daily. 90 tablet 1 06/28/2024 Active Start: 09-12-2022 take 1 tablet by chuckie th once daily meloxicam (MOBIC) 7.5 mg tablet Take 1 tablet by mouth once daily. 90 tablet 1 09/12/2022 Active Start: 02-07-2019 End: 08-15-2022 take 1 tablet by mouth once daily meloxicam (MOBIC) 7.5 mg tablet Take 1 tablet by mouth once daily. 90 tablet 1 08/15/2022 Active Comment on above: Take 1 tablet by chuckie th once daily. montelukast 10 mg oral tablet (20 sources) Leukotriene Receptor Antagonist Start: 3 End: 5 take 1 tablet by mouth once daily at bedtime montelukast (SINGULAIR) 10 mg tablet Take 1 tablet by mouth daily at bedtime. 90 tablet 1 11/10/2024 Active Start: 09-12-2022 take 1 tablet by chuckie th once daily at bedtime montelukast (SINGULAIR) 10 mg tablet Take 1 tablet by mouth daily at bedtime. 90 tablet 1 09/12/2022 Active Start: 08-27-2021 End: 08-15-2022 take 1 tablet by mouth once daily at bedtime montelukast (SINGULAIR) 10 mg tablet Take 1 tablet by mouth daily at bedtime. 30 tablet 5 08/15/2022 Active Comment on above: Take 1 tablet by chuckie th daily at bedtime. Multivitamin tablet (1 source) Start: 5 Multivitamin tablet Active 1 {tbl} PO daily December 26, 2024 12:00am polymyxin b [id number] unt/ml / trimethoprim 1 mg/ml ophthalmic solution (1 source) Dihydrofolate Reductase Inhibitor Antibacterial, Polymyxin-class Antibacterial Start: 4 End: 4 take 1 drop(s) into the eye(s) every four hours trimethoprim-polymyx in (POLYTRIM) 10,000 unit- 1 mg/mL ophthalmic solution Use 1 Drop in the right eye every 4 hours for 7 days. 10 mL 0 10/13/2023 10/20/2023 Active Comment on above: Use 1 Drop in the ri ght eye every 4 hours for 7 days. predniSONE 20 mg oral tablet (6 sources) Start: Prednisone 20 mg tablet Active mg PO December 27, 2024 12:00am Start: 12-26-2024 predniSONE (DE LTASONE) 20 mg tablet Take 3 tabs by mouth for 3 days, then 2 tabs by mouth for 3 days, then 1 tab by mouth for 3 days and then 1/2 a tab by mouth for 4 days. 20 tablet 12/26/2024 Active tiZANidine 2 mg oral tablet (1 source) Central alpha-2 Adrenergic Agonist Start: 12-27-2024 Tizanidine 2 mg tablet Active 2 - 4 mg PO EVERY 6-8 HOURS as needed December 27, 2024 12:00am Completed/Discontinued Medications Medication Drug Class(es) Dates Sig (Normalized) Sig (Original) calcium carbonate 1500 mg / cholecalciferol 0.01 mg oral capsule (20 sources) Vitamin D Start: 01-01-2015 Calcium-Cholecalci ferol, D3, 600 mg-10 mcg (400 unit) cap Take by mouth. 0 01/01/2015 Active Comment on above: Take by mouth. cefadroxil 500 mg oral capsule (6 sources) Cephalosporin Antibacterial Start: 08-28-2022 take 1 capsule by mouth twice daily cefADROxil (DURICEF) 500 mg capsule Take 1 capsule by mouth twice daily. 20 capsule 0 08/28/2022 Active Comment on above: Take 1 capsule by [facility] twice daily. ciprofloxacin 3 mg/ml ophthalmic solution (2 sources) Quinolone Antimicrobial Start: 01-29-2024 End: 11-15-2024 Ciprofloxacin Hcl 0.3 % Drops Discontinued 1 NMA LEFT EYE EVERY 4 HOURS 5 January 29, 2024 12:00am November 15, 2024 9:19am doxycycline hyclate 100 mg oral tablet (3 sources) Tetracycline-class Drug Start: 01-28-2024 End: 01-29-2024 Doxycycline Hyclate 100 mg tablet Discontinued 50 mg PO TWICE A DAY January 28, 2024 12:00am January 29, 2024 3:26pm Start: 10-13-2023 End: 10-20-2023 take 1 tablet by mouth twice daily doxycycline (VIBRA-TABS) 100 mg tablet Take 1 tablet by mouth two times a day for 7 days. 14 tablet 0 10/13/2023 10/20/2023 Active Comment on above: Take 1 tablet by chuckie th two times a day for 7 days. 30 actuat fluticasone furoate 0.1 mg/actuat dry powder inhaler (20 sources) Corticosteroid Start: 12-27-19 End: 12-28-19 take 100 ug by inhalation once daily Fluticasone Furoate (Arnuity Ellipta) 100 mcg/actuation blister with device Discontinued 1 NMA INHALATION DAILY December 26, 2024 12:00am December 27, 2024 10:09am Start: 11-15-2024 Fluticasone Pr opionate 50 mcg/actuation spray,suspension Active 2 NMA INTRANASAL DAILY November 15, 2024 12:00am Start: 01-28-2024 End: 11-15-2024 take 100 ug by inhalation once daily Fluticasone Furoate (Arnuity Ellipta) 100 mcg/actuation blister with device Discontinued 1 NMA INHALATION DAILY January 28, 2024 12:00am November 15, 2024 9:20am Start: 11-18-2023 End: 12-03-2024 take 1 puff(s) by inhalation once daily fluticasone furoate (ARNUITY ELLIPTA) 100 mcg/actuation inhaler Inhale 1 Puff as instructed once daily. 30 Each 06/06/2024 08/16/2024 Discontinued (Discontinued by Patient) Start: 04-13-2023 End: 05-27-2023 take 2 puff(s) by mouth twice daily fluticasone (FLOVENT HFA) 44 mcg/actuation inhaler Inhale 2 Puffs as instructed twice daily. Shake well before use. Rinse mouth after use. 1 Each 5 04/13/2023 05/27/2023 Discontinued Start: 03-19-2023 End: 02-08-2024 take 2 spray(s) nasal route once daily fluticasone (FLONASE) 50 mcg/actuation nasal spray instill 2 sprays into each nostril once daily 3 Each 3 02/08/2024 Active Start: 02-12-2023 End: 03-19-2023 take 2 spray(s) nasal route once daily fluticasone (FLONASE) 50 mcg/actuation nasal spray instill 2 sprays into each nostril once daily 48 g 11 02/12/2023 03/19/2023 Discontinued Start: 01-30-2021 End: 06-07-2022 take 2 spray(s) nasal route once daily fluticasone (FLONASE) 50 mcg/actuation nasal spray instill 2 sprays into each nostril once daily 48 g 11 06/07/2022 Active fluticasone furo ate 50 mcg/actuation blister with device as directed once a day fluticasone furoate Stephanie Juárez LPN Comment on above: instill 2 sprays int o each nostril once daily Inhale 2 Puffs as in structed twice daily. Shake well before use. Rinse mouth after use. ketoconazole 20 mg/ml medicated shampoo (18 sources) Azole Antifungal Start: End: ketoconazole (NIZORAL) 2 % shampoo Apply to affected area every 72 hours. 120 mL 1 12/17/2021 08/15/2022 Discontinued Comment on above: Apply to affected ar ea every 72 hours. 120 actuat mometasone furoate 0.1 mg/actuat metered dose inhaler (5 sources) Corticosteroid Start: 024 End: take 1 puff(s) by inhalation twice daily mometasone (ASMANEX HFA) 100 mcg/actuation Inhale 1 Puff as instructed two times a day. 1 Each 11/05/2023 11/18/2023 Discontinued (Not on Formulary) Comment on above: Inhale 1 Puff as ins tructed two times a day. traZODone hydrochloride 50 mg oral tablet (3 sources) Serotonin Reuptake Inhibitor Start: 017 End: take 1 tablet by mouth once daily at bedtime traZODone (DESYREL) 50 mg tablet Indications: Fibromyalgia Take 1 tablet by mouth daily at bedtime. 90 tablet 1 08/27/2021 12/17/2021 Discontinued Comment on above: Take 1 tablet by chuckie th daily at bedtime. triamcinolone acetonide 1 mg/ml topical cream (16 sources) Corticosteroid Start: 022 End: 023 triamcinolone acetonide (KENALOG) 0.1 % cream Apply 1 application to affected area twice daily. Apply to affected area. 30 g 0 01/28/2022 08/15/2022 Discontinued Comment on above: Apply 1 application to affected area twice daily. Apply to affected area. VITAMIN B COMPLEX ORAL (20 sources) End: 025 VITAMIN B COMPLEX ORAL Take by mouth. 10/20/2024 Discontinued VITAMIN B COMPLE X ORAL Take by mouth. Active VITAMIN B COMPLE X ORAL Take by mouth. 0 Active Comment on above: Take by mouth. Vitamin B Complex tablet (1 source) Start: 12-26-2024 End: 12-27-2024 Vitamin B Complex tablet Discontinued 1 {tbl} PO daily December 26, 2024 12:00am December 27, 2024 10:09am Problems Active Problems Problem Classification Problem Date Documented Date Episodic/Chronic Allergic reactions (3 sources) Allergic reaction; Translations: [Allergy, unspecified, initial encounter] 02-21-2023 Episodic Asthma (20 sources) Intrinsic asthma; Translations: [Unspecified asthma, uncomplicated] Onset: 10-31-2014 Resolved: 12-01-2023 01-21-2021 Chronic Cardiac dysrhythmias (14 sources) EKG: accelerated junctional rhythm; Translations: [Other specified cardiac arrhythmias] Onset: 01-29-2024 02-12-2024 Chronic Cardiac dysrhythmias (1 source) Palpitations; Translations: [Palpitations] Onset: 11-21-2024 Episodic Diseases of white blood cells (1 source) Leukocytosis; Translations: [Elevated white blood cell count, unspecified] Chronic Disorders of lipid metabolism (20 sources) Dyslipidemia; Translations: [Hyperlipidemia, unspecified] Onset: 01-22-2021 01-22-2021 Chronic Immunizations and screening for infectious disease (2 sources) Needs influenza immunization; Translations: [Encounter for immunization] 05-27-2023 Episodic Inflammation; infection of eye (except that caused by tuberculosis or sexually transmitteddisease) (1 source) Conjunctivitis of right eye; Translations: [Unspecified conjunctivitis] 10-13-2023 Episodic Menopausal disorders (20 sources) Atrophic vaginitis; Translations: [Postmenopausal atrophic vaginitis] Onset: 11-03-2012 01-21-2021 Chronic Neoplasms of unspecified nature or uncertain behavior (2 sources) Monoclonal gammopathy (clinical); Translations: [Monoclonal gammopathy] Onset: 10-04-2024 10-04-2024 Chronic Nonspecific chest pain (7 sources) Chest discomfort; Translations: [Other chest pain] Onset: 01-29-2024 2024 Episodic Nutritional deficiencies (20 sources) Vitamin D deficiency; Translations: [Vitamin D deficiency, unspecified] Onset: 12-12-2009 01-21-2021 Chronic Osteoarthritis (20 sources) Arthritis; Translations: [Unspecified osteoarthritis, unspecified site] Onset: 03-26-2015 01-21-2021 Chronic Osteoporosis (20 sources) Osteoporosis; Translations: [Age-related osteoporosis without current pathological fracture] Onset: 12-10-2009 01-21-2021 Chronic Other bone disease and musculoskeletal deformities (1 source) Other specified disorders of bone density and structure, other site; Translations: [Swelling, mass, or lump in head and neck] 02-17-2023 Episodic Other connective tissue disease (3 sources) Ganglion cyst; Translations: [Ganglion, unspecified site] Episodic Other connective tissue disease (3 sources) Ganglion cyst of right hand; Translations: [Ganglion, right hand] Episodic Other connective tissue disease (1 source) Trochanteric bursitis; Translations: [Trochanteric bursitis, right hip] 12-26-2024 Episodic Other connective tissue disease (1 source) Recurrent falls ; Translations: [Repeated falls] 12-27-2024 Episodic Other connective tissue disease (1 source) Trochanteric bursitis, right hip; Translations: [Greater trochanteric bursitis of right hip] Onset: 12-26-2024 Episodic Other hereditary and degenerative nervous system conditions (20 sources) Restless legs; Translations: [Restless legs syndrome] Onset: 03-25-2010 01-21-2021 Chronic Other inflammatory condition of skin (20 sources) Psoriasis of nail; Translations: [Psoriasis, unspecified] Onset: 03-26-2015 01-21-2021 Chronic Other inflammatory condition of skin (1 source) Seborrheic dermatitis of scalp; Translations: [Seborrheic dermatitis, unspecified] Episodic Other lower respiratory disease (1 source) Dyspnea; Translations: [Dyspnea, unspecified] 03-26-2023 Episodic Other nervous system disorders (20 sources) Neuropathy of lower limb; Translations: [Lesion of lateral popliteal nerve, unspecified lower limb] Onset: 09-01-2024 09-01-2024 Chronic Other nervous system disorders (3 sources) Neuropathy; Translations: [Polyneuropathy, unspecified] 09-13-2024 Chronic Other nervous system disorders (1 source) Polyneuropathy, unspecified; Translations: [Neuropathy] Onset: 10-07-2024 Chronic Other nervous system disorders (1 source) Lesion of lateral popliteal nerve, unspecified lower limb; Translations: [Peroneal neuropathy, unspecified laterality] Onset: 09-01-2024 Chronic Other nervous system disorders (2 sources) Paresthesia of foot ; Translations: [Anesthesia of skin] 08-16-2024 Episodic Other nervous system disorders (1 source) Paresthesia; Translations: [Paresthesia of skin] 10-07-2024 Episodic Other nervous system disorders (2 sources) Paresthesia of skin; Translations: [Paresthesia of skin] Onset: 09-29-2024 Episodic Other nervous system disorders (3 sources) Anesthesia of skin; Translations: [Anesthesia of skin] Onset: 09-29-2024 Episodic Other nutritional; endocrine; and metabolic disorders (18 sources) Hypercalcemia; Translations: [Hypercalcemia] Onset: 08-14-2021 08-14-2021 Chronic Other upper respiratory disease (1 source) Seasonal allergy; Translations: [Other seasonal allergic rhinitis] 12-01-2023 Chronic Other upper respiratory disease (2 sources) Deviated nasal septum; Translations: [Deviated nasal septum] 04-13-2023 Episodic Other upper respiratory disease (1 source) Hoarse; Translations: [Dysphonia] 06-30-2024 Episodic Other upper respiratory infections (4 sources) Viral sinusitis; Translations: [Chronic sinusitis, unspecified] Chronic Other upper respiratory infections (1 source) Acute upper respiratory infection; Translations: [Acute upper respiratory infection, unspecified] Episodic Otitis media and related conditions (1 source) Acute left otitis media; Translations: [Otitis media, unspecified, left ear] Episodic Poisoning by nonmedicinal substances (1 source) Spider bite wound; Translations: [Toxic effect of unspecified spider venom, accidental (unintentional), initial encounter] 12-27-2024 Episodic Comment on above: brown recluse Spondylosis; intervertebral disc disorders; other back problems (20 sources) Prolapsed lumbar intervertebral disc; Translations: [Other intervertebral disc displacement, lumbar region] Onset: 12-16-2010 04-12-2019 Chronic Spondylosis; intervertebral disc disorders; other back problems (20 sources) Spinal stenosis of lumbar region; Translations: [Spinal stenosis, lumbar region] Onset: 10-02-2016 10-02-2016 Episodic Thyroid disorders (2 sources) Subclinical hypothyroidism; Translations: [Other specified hypothyroidism] Onset: 02-12-2024 02-12-2024 Chronic Unclassified (1 source) Supraventricular tachycardia, unspecified; Translations: [Supraventricular tachycardia, unspecified] Onset: 12-27-2024 Unclassified (1 source) Appointment Cancelled Onset: 11-15-2024 Past or Other Problems Problem Classification Problem Date Documented Da te Episodic/Chronic Administrative/social admission (20 sources) Advance directive discussed with patient; Translations: [Other specified counseling] Onset: 08-15-2022 Episodic E Codes: Adverse effects of medical drugs (3 sources) Adverse reaction to drug; Translations: [Adverse effect of unspecified drugs, medicaments and biological substances, initial encounter] Onset: 01-29-2024 2024 Episodic Gastritis and duodenitis (20 sources) Acute gastritis; Translations: [Acute gastritis without bleeding] Onset: 01-03-2008 Resolved: 01-01-2015 01-01-2015 Episodic Other aftercare (1 source) Surgical follow-up; Translations: [Encounter for other specified surgical aftercare] Onset: 05-26-2019 05-26-2019 Episodic Other aftercare (20 sources) Patient encounter status; Translations: [Other correction (current) drug therapy] Onset: 01-21-2021 01-21-2021 Episodic Other aftercare (1 source) Other correction (current) drug therapy; Translations: [Medication management] Onset: 01-21-2021 Episodic Other bone disease and musculoskeletal deformities (1 source) Osteopenia; Translations: [Other specified disorders of bone density and structure, multiple sites] Onset: 10-28-2016 10-28-2016 Episodic Other bone disease and musculoskeletal deformities (1 source) Disorder of bone; Translations: [Disorder of bone density and structure, unspecified] Onset: 10-02-2016 10-02-2016 Episodic Other connective tissue disease (20 sources) Fibromyalgia; Translations: [Fibromyalgia] Onset: 08-23-2015 01-21-2021 Episodic Other connective tissue disease (20 sources) Bursitis; Translations: [Other bursitis, not elsewhere classified, unspecified site] Onset: 08-20-2004 Resolved: 10-18-2004 10-18-2004 Episodic Other nervous system disorders (18 sources) Numbness of face; Translations: [Anesthesia of skin] Onset: 08-14-2021 08-14-2021 Episodic Other screening for suspected conditions (not mental disorders or infectious disease) (3 sources) Raised cardiac enzyme or marker; Translations: [Other specified abnormal findings of blood chemistry] Onset: 01-29-2024 2024 Episodic Residual codes; unclassified (20 sources) Insomnia; Translations: [Insomnia, unspecified] Onset: 03-26-2015 01-21-2021 Episodic Residual codes; unclassified (20 sources) Active living will ; Translations: [Other specified health status] Onset: 08-15-2022 08-15-2022 Episodic Screening and history of mental health and substance abuse codes (2 sources) Encounter for screening for depression; Translations: [Encounter for screening examination for other mental health and behavioral disorders] Onset: 08-16-2024 Episodic Unclassified (1 source) Problem Results Test Name Value Interpretation Reference Range Facility CNTHERAPYon 01-16-2025 CNTHERAPY OT/PT/Speech Visit (PTWS) LUPIS BRITO ([id number]) 1950 F Date Time Provider Department 01/16/25 3:30 PM BARRERA MEJIA PTWS Date Time Provider Department Center 01/16/2025 3:30 PM [id number], SEAN PTWS Rashad Purcell Reason for Visit: PT Discharge [752] Primary Visit Diagnosis:Spinal stenosis of lumbar region without neurogenic claudication [M48.061] Allergies As of Date: 01/16/2025 Noted Allergy Reaction CLINDAMYCIN 02/21/2023 2 - Rash BONIVA (IBANDRONATE) 07/09/2022 8 - GI Upset Comments: Increase in GERD DOXYCYCLINE 02/01/2024 14 - Other: See Comments Comments: Accelerated heart rate FOSAMAX (ALENDRONATE) 07/09/2022 8 - GI Upset Comments: Increase heartburn/GI MOLD 02/09/2019 14 - Other: See Comments Comments: Nasal/sinus PENICILLINS 08/20/2004 16 - Unknown POLLEN EXTRACTS 02/09/2019 14 - Other: See Comments Comments: Nasal/sinus SULFA (SULFONAMIDE ANTIBIOTICS) 08/20/2004 16 - Unknown Date Reviewed: 01/06/2025 Reviewed by: Alona Cruz MD - Fully Assessed Prescriptions as of 01/18/2025 - predniSONE (DELTASONE) 20 mg tablet Take 3 tabs by mouth for 3 days, then 2 tabs by mouth for 3 days, then 1 tab by mouth for 3 days and then 1/2 a tab by mouth for 4 days. - cyclobenzaprine (FLEXERIL) 10 mg tablet Take 1 tablet by mouth two times a day as needed. - montelukast (SINGULAIR) 10 mg tablet Take 1 tablet by mouth daily at bedtime. - QVAR REDIHALER 40 mcg/actuation inhaler Inhale 2 Puffs as instructed two times a day. - gabapentin (NEURONTIN) 300 mg capsule Take 1 capsule by mouth two times a day for 180 days. - RESTASIS 0.05 % ophthalmic emulsion Use 1 Drop in both eyes two times a day. - meloxicam (MOBIC) 7.5 mg tablet Take 1 tablet by mouth once daily. - fluticasone (FLONASE) 50 mcg/actuation nasal spray instill 2 sprays into each nostril once daily - calcium carbonate (CALCIUM 300 ORAL) Take 1 tablet by mouth once daily. - albuterol HFA (VENTOLIN HFA) 90 mcg/actuation inhaler Inhale 2 Puffs as instructed every 4 hours as needed for wheezing/shortness of breath. - MELATONIN ORAL Take 10 mg by mouth at bedtime as needed. - L.ACID/L.CASEI/B.BIF/ B.ROBIN/FOS (PROBIOTIC BLEND ORAL) Take 1 tablet by mouth once daily. - folic acid 800 mcg ORAL Tab Take 800 mcg by mouth once daily. - DAILY MULTIVITAMIN TAB Take 1 tablet by mouth once daily. Facility-Administered Medications as of 01/18/2025 - denosumab 60 mg injection (PROLIA) [employer]: Therapy (PT/OT/Speech/Resp) ID: [id number] 01/16/2025 4:02 PM Author: BARRERA MEJIA Signed by BARRERA MEJIA PT on 01/16/2025 at 4:02 PM Document text: Program_ID:[id number] Access Code: [email or web address] URL: [email or web address] Date: 01-16-2025 Prepared By: Barrera Mejia Program Notes Exercises - Hooklying Single Knee to Chest - 1 x daily - 7 x weekly - 3 sets - 3 reps - Supine Double Knee to Chest - 1 x daily - 7 x weekly - 3 sets - 3 reps - Supine Posterior Pelvic Tilt - 1 x daily - 7 x weekly - 3 sets - 10 reps - Seated Thoracic Flexion and Rotation with Citizen [place] Ball - 1 x daily - 7 x weekly - 2 sets - 10 reps - Supine Lower Trunk Rotation - 1 x daily - 7 x weekly - 2 sets - 10 reps - Hooklying Lumbar Traction - 1 x daily - 7 x weekly - 3 sets - 10 reps ----- Normal [facility] THERAPY NTon 01-16-2025 THERAPY NT HNO ID: [id number] Author: BARRERA MEJIA PT Service: ? Author Type: Physical Therapist Type: Therapy (PT/OT/Speech/Resp) Filed: 01/16/2025 16:02 Note Text: Program_ID:[id number] Access Code: [email or web address] URL: [email or web address] Date: 01-16-2025 Prepared By: Barrera Mejia Program Notes Exercises - Hooklying Single Knee to Chest - 1 x daily - 7 x weekly - 3 sets - 3 reps - Supine Double Knee to Chest - 1 x daily - 7 x weekly - 3 sets - 3 reps - Supine Posterior Pelvic Tilt - 1 x daily - 7 x weekly - 3 sets - 10 reps - Seated Thoracic Flexion and Rotation with Citizen [place] Ball - 1 x daily - 7 x weekly - 2 sets - 10 reps - Supine Lower Trunk Rotation - 1 x daily - 7 x weekly - 2 sets - 10 reps - Hooklying Lumbar Traction - 1 x daily - 7 x weekly - 3 sets - 10 reps Normal [facility] CNOVon 01-06-2025 CNOV Office Visit (PULMWS ) LUPIS BRITO ([id number]) 1950 F Date Time Provider Department 01/06/25 9:30 AM ALONA CRUZ PULMCAIO During your visit today, we recorded the following information about you: Pulse Respiration Blood pressure Weight 64/minute 16/minute 120/74 59 kg Alona Cruz MD 01/06/2025 9:43 AM Signed . Respiratory [place] Note Patient name: Lupis Brito PCP: Tacos Hein MD CC: Asthma HPI: Lupis Brito 74 year old female never smoker with PMH significant for asthma diagnosed by methacholine challenge, allergic rhinitis, fibromyalgia, osteoporosis, neuropathy presenting for follow-up. Previous therapy with ICS (Arnuity) and as needed albuterol. At [facility] [place], she had issues with dysphonia due to ICS. Initially she was prescribed QVAR which controlled her symptoms and had no adverse effects but this inhaler became nonformulary. She has since changed back to QVAR Redihaler. Doing well. Only needed albuterol when very physically active with home projects. She denies significant dyspnea, cough, sputum production or wheezing. She has not been ill with any upper respiratory infection nor required hospitalization. No nocturnal awakenings. She has significant seasonal allergies but did well this past spring due to the fact that [place]. Still has some slight raspy voice but able to sing. DATA: ASTHMA CONTROL TEST Date: 01/06/2025 In the last 4 weeks, how much of the time did your asthma keep you from getting as much done at work or home that you wanted to do? None of the time (5) In the last 4 weeks, how often have you had shortness of breath? Not at all (5) In the last 4 weeks, how often did your asthma symptoms (wheezing, coughing, shortness of breath, chest tightness or pain) wake you up at night or earlier than usual? Not at all (5) In the last 4 weeks, how often have you used your rescue inhaler or nebulizer medication (such as Albuterol, Proventil, Ventolin, Maxair, Xoponex, or Primatene Mist)? Once a week or less (4) In the last 4 weeks, how would you rate your asthma control? Completely controlled (5) Total: more than 20 PAST MEDICAL HISTORY Diagnosis Date Acute gastritis without mention of hemorrhage Advance directive discussed with patient 08/15/2022 Discussed 07/2022: Needs to bring in copies. Arthritis of both hips 08/23/2015 Asthma (HCC) Positive JEREMIAH Benign neoplasm of colon Dyslipidemia 01/22/2021 Fibromyalgia 03/25/2010 Incidental lung nodule, less than or equal to 3mm 10/19/2014 F/u not needed Inflammatory arthritis 03/26/2015 Insomnia 03/26/[address] 08/15/2022 DPA: Lainey [...] Boniva [Ibandronate] GI Upset Increase in GERD Doxycycline Other: See Comments Accelerated heart rate Fosamax [Alendronat* GI Upset Increase heartburn/GI Mold Other: See Comments Nasal/sinus Penicillins Unknown Pollen Extracts Other: See Comments Nasal/sinus Sulfa (Sulfonamide * Unknown predniSONE (DELTASONE) 20 mg tabletTake 3 tabs by mouth for 3 days, then 2 tabs by mouth for 3 days, then 1 tab by mouth for 3 days and then 1/2 a tab by mouth for 4 days.Disp: 20 tabletRfl: 0 montelukast (SINGULAIR) 10 mg tabletTake 1 tablet by mouth daily at bedtime.Disp: 90 tabletRfl: 1 QVAR REDIHALER 40 mcg/actuation inhalerInhale 2 Puffs as instructed two times a day.Disp: Rfl: albuterol HFA (VENTOLIN HFA) 90 mcg/actuation inhalerInhale 2 Puffs as instructed every 4 hours as needed for wheezing/shortness of breath.Disp: 3 EachRfl: 2 cyclobenzaprine (FLEXERIL) 10 mg tabletTake 1 tablet by mouth two times a day as needed.Disp: 40 tabletRfl: 0 gabapentin (NEURONTIN) 300 mg capsuleTake 1 capsule by mouth two times a day for 180 days.Disp: 180 capsuleRfl: 1 RESTASIS 0.05 % ophthalmic emulsionUse 1 Drop in both eyes two times a day.Disp: Rfl: meloxicam (MOBIC) 7.5 mg tabletTake 1 tablet by mouth once daily.Disp: 90 tabletRfl: 1 fluticasone (FLONASE) 50 mcg/actuation nasal sprayinstill 2 sprays into each nostril once dailyDisp: 3 EachRfl: 3 calcium carbonate (CALCIUM 300 ORAL)Take 1 tablet by mouth once daily.Disp: Rfl: MELATONIN ORALTake 10 mg by mouth at bedtime as needed.Disp: Rfl: L.ACID/L.CASEI/B.BIF/ B.ROBIN/FOS (PROBIOTIC BLEND ORAL)Take 1 tablet by mouth once daily.Disp: Rfl: folic a (more content not included)... Normal [facility] CNTHERAPYon 12-30-2024 CNTHERAPY OT/PT/Speech Visit (PTWS) LUPIS BRITO ([id number]) 1950 F Date Time Provider Department 12/30/24 9:00 AM BARRERA MEJIA PTWS Date Time Provider Department Center 12/30/2024 9:00 AM [id number], SEAN PTWS Rashad Purcell Reason for Visit: PT Progress Note [1596] Primary Visit Diagnosis:Spinal stenosis of lumbar region without neurogenic claudication [M48.061] Allergies As of Date: 12/30/2024 Noted Allergy Reaction CLINDAMYCIN 02/21/2023 2 - Rash BONIVA (IBANDRONATE) 07/09/2022 8 - GI Upset Comments: Increase in GERD DOXYCYCLINE 02/01/2024 14 - Other: See Comments Comments: Accelerated heart rate FOSAMAX (ALENDRONATE) 07/09/2022 8 - GI Upset Comments: Increase heartburn/GI MOLD 02/09/2019 14 - Other: See Comments Comments: Nasal/sinus PENICILLINS 08/20/2004 16 - Unknown POLLEN EXTRACTS 02/09/2019 14 - Other: See Comments Comments: Nasal/sinus SULFA (SULFONAMIDE ANTIBIOTICS) 08/20/2004 16 - Unknown Date Reviewed: 12/26/2024 Reviewed by: Tacos Hein MD - Fully Assessed Prescriptions as of 12/30/2024 - predniSONE (DELTASONE) 20 mg tablet Take 3 tabs by mouth for 3 days, then 2 tabs by mouth for 3 days, then 1 tab by mouth for 3 days and then 1/2 a tab by mouth for 4 days. - cyclobenzaprine (FLEXERIL) 10 mg tablet Take 1 tablet by mouth two times a day as needed. - montelukast (SINGULAIR) 10 mg tablet Take 1 tablet by mouth daily at bedtime. - QVAR REDIHALER 40 mcg/actuation inhaler Inhale 2 Puffs as instructed two times a day. - gabapentin (NEURONTIN) 300 mg capsule Take 1 capsule by mouth two times a day for 180 days. - RESTASIS 0.05 % ophthalmic emulsion Use 1 Drop in both eyes two times a day. - meloxicam (MOBIC) 7.5 mg tablet Take 1 tablet by mouth once daily. - fluticasone (FLONASE) 50 mcg/actuation nasal spray instill 2 sprays into each nostril once daily - calcium carbonate (CALCIUM 300 ORAL) Take 1 tablet by mouth once daily. - albuterol HFA (VENTOLIN HFA) 90 mcg/actuation inhaler Inhale 2 Puffs as instructed every 4 hours as needed for wheezing/shortness of breath. - MELATONIN ORAL Take 10 mg by mouth at bedtime as needed. - L.ACID/L.CASEI/B.BIF/ B.ROBIN/FOS (PROBIOTIC BLEND ORAL) Take 1 tablet by mouth once daily. - folic acid 800 mcg ORAL Tab Take 800 mcg by mouth once daily. - DAILY MULTIVITAMIN TAB Take 1 tablet by mouth once daily. Facility-Administered Medications as of 12/30/2024 - denosumab 60 mg injection (PROLIA) [employer]: Therapy (PT/OT/Speech/Resp) ID: [id number] 12/30/2024 9:20 AM Author: BARRERA MEJIA Signed by BARRERA MEJIA PT on 12/30/2024 at 9:20 AM Document text: Program_ID:[id number] Access Code: [email or web address] URL: [email or web address] Date: 12-30-2024 Prepared By: Barrera Mejia Program Notes Exercises - Hooklying Single Knee to Chest - 1 x daily - 7 x weekly - 3 sets - 3 reps - Supine Double Knee to Chest - 1 x daily - 7 x weekly - 3 sets - 3 reps - Supine Posterior Pelvic Tilt - 1 x daily - 7 x weekly - 3 sets - 10 reps - Seated Thoracic Flexion and Rotation with Citizen [place] Ball - 1 x daily - 7 x weekly - 2 sets - 10 reps - Supine Lower Trunk Rotation - 1 x daily - 7 x weekly - 2 sets - 10 reps ----- Normal [facility] THERAPY NTon 12-30-2024 THERAPY NT HNO ID: [id number] Author: BARRERA MEJIA PT Service: ? Author Type: Physical Therapist Type: Therapy (PT/OT/Speech/Resp) Filed: 12/30/2024 09:20 Note Text: Program_ID:[id number] Access Code: [email or web address] URL: [email or web address] Date: 12-30-2024 Prepared By: Barrera Mejia Program Notes Exercises - Hooklying Single Knee to Chest - 1 x daily - 7 x weekly - 3 sets - 3 reps - Supine Double Knee to Chest - 1 x daily - 7 x weekly - 3 sets - 3 reps - Supine Posterior Pelvic Tilt - 1 x daily - 7 x weekly - 3 sets - 10 reps - Seated Thoracic Flexion and Rotation with Citizen [place] Ball - 1 x daily - 7 x weekly - 2 sets - 10 reps - Supine Lower Trunk Rotation - 1 x daily - 7 x weekly - 2 sets - 10 reps Normal [facility] Cardiology Visit Reporton Cardiology Visit Report [facility] [address] [place] [address]. [address] [place], [place] [address] OFFICE VISIT Date of Service: 12/27/24 MR#: [id number] Acct: [id number] Name: LUPIS BRITO Rep #: [id number] : 1950 Provider: Dr. Kailee Mcnair MD Age/Sex: 74/F [place] [facility] [place]: Signed HPI HPI History of Present Illness Details: This lady is here for evaluation and management of her recently diagnosed SVT. Patient complains of intermittent palpitations. She went to the emergency room with 1 6 long episode back in October of this year. She was noted to be in supraventricular tachycardia. This was successfully terminated with IV adenosine. Since then, patient has had event monitoring done. It showed runs of supraventricular tachycardia. Per patient, she occasionally feels lightheaded with her palpitations. No syncope or presyncope. Denies any chest pains or shortness of breath associated with these. Her last such episode was last week. According to her, it lasted about 10 to 15 minutes. Denies any history of chest pains or shortness of breath either at rest or with exertion. No orthopnea. No PND. No ankle edema. Denies illicit substance abuse. No EtOH abuse. No excessive caffeine intake. Denies being excessively hot or cold. Intake Vital Signs 11/15/24 09:02 12/26/24 07:42 12/27/24 07:32 Height 5 ft 4 in 5 ft 4 in 5 ft 4 in Weight: 130 lb BMI 22.3 BP 107/74 Blood Pressure Location Lt brachial Position Sitting Respiration 18 Pulse 72 Pulse Source NIBP Intake Visit Reasons: S/P [facility] 11/15 (SELF) Radiology Therapist Required: No Accompanied by: Is patient in pain?: Yes (7/10 back pain) Allergies clindamycin Allergy (Mild, Verified 12/26/24 07:30) Rash pollen extracts Allergy (Mild, Verified 12/26/24 07:30) Nasal Congestion doxycycline Adverse Reaction (Intermediate, Verified 12/26/24 07:30) Other alendronate sodium (From Fosamax) Adverse Reaction (Mild, Verified 12/26/24 07:30) Upset Stomach ibandronate sodium (From Boniva) Adverse Reaction (Mild, Verified 12/26/24 07:30) Upset Stomach mold Adverse Reaction (Mild, Verified 12/26/24 07:30) Nasal Congestion Penicillins Adverse Reaction (Mild, Verified 12/26/24 07:30) Nausea Sulfa (Sulfonamide Antibiotics) Adverse Reaction (Mild, Verified 12/26/24 07:30) Nausea Medications ???Medication ???Instructions ???Recorded ???Confirmed ???Type albuterol sulfate 90 mcg/actuation 2 puff inhalation Q4H PRN 12/27/24 History aerosol inhaler shortness of breath or wheezing denosumab 60 mg/mL subcutaneous 60 mg subcut .[id number] bone health 01/28/24 12/27/24 History syringe (Prolia) gabapentin 300 mg capsule 300 mg PO Q12H nerve pain 01/28/24 12/27/24 History meloxicam 7.5 mg tablet 7.5 mg PO DAILY pain 01/28/2410/18 History montelukast 10 mg tablet 10 mg PO QHS allergies 01/28/24 History beclomethasone dipropionate 40 2 inh inhalation BID 11/15/2410/18 History mcg/actuation HFA breath activated aerosol (Qvar RediHaler) cyclosporine 0.05 % eye drops in a 1 drp ophthalmic (eye) BID 11/1512/27/24 History dropperette (Restasis) fluticasone propionate 50 2 spray intranasal DAILY 11/15/24 12/27/24 History mcg/actuation nasal spray,suspension LEduardoacidoph,saliva-B.bi f-S.therm PO DAILY 12/26/24 12/27/24 History [Acidophilus Probiotic Blend] calcium carbonate (Calcium Antacid) 300 mg PO QDAY 12/26/24 5 History folic acid 800 mcg tablet 0.8 mg PO QDAY 12/26/24 12/27/24 H istory melatonin PO HS PRN 12/26/24 12/27/24 Histor y multivitamin 1 tab PO QDAY 12/26/24 12/27/24 Hi story clindamycin HCl 300 mg capsule 300 mg PO TID 12/27/24 12/27/24 Hi story prednisone 20 mg tablet mg PO 12/27/24 12/27/24 History tizanidine 2 mg tablet 2 - 4 mg PO Q6-8H PRN 12/27/2410/18 History Ejection fraction %: 55 Have you fallen in the past year?: Yes (2 in the past month, related to back pain) PFSH Medical History (Updated 12/27/24 @ 10:[address] Kailee Mcnair MD) Numbness and tingling of both feet Mild intermittent asthma without complication History of deviated nasal septum Vitamin D deficiency Psoriasis of nail Allergic rhinitis Spinal stenosis of lumbar region with radiculopathy Restless leg syndrome Postmenopausal atrophic vaginitis Osteoporosis Lumbar degenerative disc disease Intrinsic asthma Insomnia Inflammatory arthritis Incidental lung nodule, less than or equal to 3mm Fibromyalgia Dyslipidemia Benign neoplasm of colon Acute gastritis without mention of hemorrhage Supraventricular tachycardia Accelerated atrioventricular junctional rhythm Chronic asthma Elevated troponin Chest pain Asthma Arthritis Surgical History (Reviewed 12/27/24 (more content not included)... Normal [facility] 12[facility]26[facility]UP[facility] ([id number]) 1950 F Date Time Provider Department 12/26/24 1:00 PM TACOS HEIN During your visit today, we recorded the following information about you: Pulse Respiration Blood pressure Weight 81/minute 16/minute 108/70 59 kg Tacos Hein MD 12/26/2024 3:12 PM Signed Chief Complaint Patient presents with: Hospital F/U HPI Lupis Brito is a 74 year old female who presents here today for Hospital Discharge Follow up.. Phone note 12/12/2024 [facility] Address: [address] [place] [address]. ( # [phone]). Reports she was seen for severe back pain after falling off her RV steps, and falling flat on her back onto soft grassy area. Reports she see's Dr Alves for pain management for chronic back problems, and also does therapy at [facility]. Reports the back is not her problem right now, the problem is that she has bulging discs and the fall probably popped one out. Reports the pain starts at her left hip, radiates down buttock then radiates around to knee and into the foot. Reports the CT showed no breaks anywhere. She is also having pain on the right side in the lower back and numbness radiating down the side of the right leg and into the foot. She also notes that the numbness she was having in her feet prior to the trip is worse. (See below) Reports ER prescribed flexeril 5 mg 1/2 tabs 3 x's daily prn, and tizanidine 2 mg 1-2 tabs q6-8 hours prn, but instructed her if the flexeril does not help after 1 hour she can take 1 tizanidine. Also prescribed hydrocodone-acetamino phen 5-325 and told not to take this one with the muscle relaxers. Reports the hydrocodone/acet doesn't really give relief so she took advil dual action 250- 125 mg. Reports the ER only gave her a couple days worth of these pills and told her to call pcp for more. Patient was seen again in the ER about 1 1/2 weeks ago for a spider bite on the right great toe that was felt to be due to a [place] Recluse spider. Patient was placed on clindamycin and has 3-4 more days to complete. She feels this has been improving. . [place], she had been seen by neuro for numbness in her feet. It was found on MRI done 10/12/2024 that she had spinal stenosis. She was sent to PHYSICAL THERAPY. Prior to the trip the numbness in the feet had been improving but it did make her back hurt more. Has noticed weakness in just the left lower extremity. At times it feels like it could give way. Has not had a fall due to the left leg feeling week. Balance does seem more off. Past medical history, appointments, medications, allergies reviewed. [...] History PAST SURGICAL HISTORY Procedure Laterality Date BACK SURGERY HX SECTION HX 09/27/1980 COLSC FLX W/RMVL OF TUMOR POLYP LESION SNARE TQ 01/03/2008 Repeat in EGD TRANSORAL BIOPSY SINGLE/MULTIPLE 01/03/2008 EXC LESION TDN SHTH/JT CAPSL HAND/FNGR Right 04/10/2022 Excision ganglion cyst right 5th finger PAST SURGICAL HISTORY OF 07/27/1979 deviated septum Family History FAMILY HISTORY Problem Relation Age of Onset Hypertension Mother Lipids Mother Skin Cancer Mother chemo and radiation Heart Father irregular heart beat. Skin Cancer Sister Asthma No Family History Coronary Artery Disease No Family History Patient Allergies ALLERGIES Allergen Reactions Clindamycin Rash Boniva [Ibandronate] GI Upset Increase in GERD Doxycycline Other: See Comments Accelerated heart rate Fosamax [Alendronat* GI Upset Increase heartburn/GI Mold Other: See Comments Nasal/sinus Penicillins Unknown Pollen Extracts Other: See Comments Nasal/sinus Sulfa (Sulfonamide * Unknown Current Medications Current Out (more content not included)... Normal [facility] CNPNon 12-12-2024 CNPN Telephone ([facility]) LUPIS BRITO ([id number]) 1950 F Date Time Provider Department 12/12/24 [facility] During your visit today, we recorded the following information about you: Dorian Thomson RN 12/12/2024 2:00 PM Signed Pt reports she was [facility] yesterday (12/11/24). Address: [address] [place] [address]. ( # [phone]). Reports she was seen for severe back pain after falling off her RV steps, and falling flat on her back onto soft grassy area. Reports she see's Dr Alves for pain management for chronic back problems, and also does therapy at [facility]. Reports the back is not her problem right now, the problem is that she has bulging discs and the fall probably popped one out. Reports the pain starts at her left hip, radiates down buttock then radiates to knee. Reports the CT showed no breaks anywhere. Reports ER prescribed flexeril 5 mg 1/2 tabs 3 x's daily prn, and tizanidine 2 mg 1-2 tabs q6-8 hours prn, but instructed her if the flexeril does not help after 1 hour she can take 1 tizanidine. Also prescribed hydrocodone-acetamino phen 5-325 and told not to take this one with the muscle relaxers. Reports the hydrocodone/acet doesn't really give relief so she took advil dual action 250- 125 mg. Reports the ER only gave her a couple days worth of these pills and told her to call pcp for more. Scheduled hosp f/u for 12/26/24 with pcp. Pt will not return to [place] for 2 weeks. Wants to know if pcp can send Rx for the muscle relaxers and pain medication to where she is at in [place], [place]? Advised pt pcp is out of office until Thu and I will be sending message to Syl Mariee. Advised patient provider would not send controlled, but will ask about the muscle relaxers. Pt states she will try to call Dr. Malik office also. Please advise patient and phone her with reply. Madison Mariee PA-C 12/12/2024 2:36 PM Signed Agree with patient discussing medication usage with Pain management. Prosper Rodriguez LPN 12/12/2024 2:47 PM Signed Pt notified of same and will contact. Dr Alves's office. Prosper Rodriguez LPN Allergies As of Date: 12/12/2024 Noted Allergy Reaction CLINDAMYCIN 02/21/2023 2 - Rash BONIVA (IBANDRONATE) 07/09/2022 8 - GI Upset Comments: Increase in GERD DOXYCYCLINE 02/01/2024 14 - Other: See Comments Comments: Accelerated heart rate FOSAMAX (ALENDRONATE) 07/09/2022 8 - GI Upset Comments: Increase heartburn/GI MOLD 02/09/2019 14 - Other: See Comments Comments: Nasal/sinus PENICILLINS 08/20/2004 16 - Unknown POLLEN EXTRACTS 02/09/2019 14 - Other: See Comments Comments: Nasal/sinus SULFA (SULFONAMIDE ANTIBIOTICS) 08/20/2004 16 - Unknown Date Reviewed: 11/18/2024 Reviewed by: Abbe Rust MA - Fully Assessed Reason for Visit: [facility] ER f/u [Other] Prescriptions as of 12/12/2024 - montelukast (SINGULAIR) 10 mg tablet Take 1 tablet by mouth daily at bedtime. - QVAR REDIHALER 40 mcg/actuation inhaler Inhale 2 Puffs as instructed two times a day. - gabapentin (NEURONTIN) 300 mg capsule Take 1 capsule by mouth two times a day for 180 days. - RESTASIS 0.05 % ophthalmic emulsion Use 1 Drop in both eyes two times a day. - meloxicam (MOBIC) 7.5 mg tablet Take 1 tablet by mouth once daily. - fluticasone (FLONASE) 50 mcg/actuation nasal spray instill 2 sprays into each nostril once daily - calcium carbonate (CALCIUM 300 ORAL) Take 1 tablet by mouth once daily. - albuterol HFA (VENTOLIN HFA) 90 mcg/actuation inhaler Inhale 2 Puffs as instructed every 4 hours as needed for wheezing/shortness of breath. - MELATONIN ORAL Take 10 mg by mouth at bedtime as needed. - L.ACID/L.CASEI/B.BIF/ B.ROBIN/FOS (PROBIOTIC BLEND ORAL) Take 1 tablet by mouth once daily. - folic acid 800 mcg ORAL Tab Take 800 mcg by mouth once daily. - DAILY MULTIVITAMIN TAB Take 1 tablet by mouth once daily. Facility-Administered Medications as of 12/12/2024 - denosumab 60 mg injection (PROLIA) Problem List As Of Date 12/12/2024 Noted Resolved BURSITIS NEC [M71.50] 08/20/2004 10/18/2004 Acute gastritis without mention of hemorrhage [*01/03/2008 01/01/2015 Osteoporosis [M81.0] 12/10/2009 Vitamin D deficiency [E55.9] 12/12/2009 Restless leg syndrome [G25.81] 03/25/2010 Lumbar degenerative disc disease [M51.369] 12/16/2010 Postmenopausal atrophic vaginitis [N95.2] 11/03/2012 Intrinsic asthma [J45.909] 10/31/2014 12/01/2023 Insomnia [G47.00] 03/26/2015 Inflammatory arthritis [M19.90] 03/26/2015 Psoriasis of nail [L40.9] 03/26/2015 Arthritis of both hips [M16.0] 08/23/2015 Fibromyalgia [M79.7] 08/23/2015 Spinal stenosis of lumbar region with radiculop*10/09/2016 Screening for colon cancer [Z12.11] 01/21/2021 Medication management [Z79.899] 01/21/2021 Dyslipidemia [E78.5] 01/22/2021 Medicare (more content not included)... Normal [facility] CNTHERAPYon 11-29-2024 CNTHERAPY OT/PT/Speech Visit (PTWS) LUPIS BRITO ([id number]) 1950 F Date Time Provider Department 11/29/24 9:15 AM BARRERA MEJIA PTCAIO Date Time Provider Department Center 11/29/2024 9:15 AM [id number], SEAN PTCAIO Purcell Reason for Visit: PT Progress Note [1596] Primary Visit Diagnosis:Spinal stenosis of lumbar region without neurogenic claudication [M48.061] Allergies As of Date: 11/29/2024 Noted Allergy Reaction CLINDAMYCIN 02/21/2023 2 - Rash BONIVA (IBANDRONATE) 07/09/2022 8 - GI Upset Comments: Increase in GERD DOXYCYCLINE 02/01/2024 14 - Other: See Comments Comments: Accelerated heart rate FOSAMAX (ALENDRONATE) 07/09/2022 8 - GI Upset Comments: Increase heartburn/GI MOLD 02/09/2019 14 - Other: See Comments Comments: Nasal/sinus PENICILLINS 08/20/2004 16 - Unknown POLLEN EXTRACTS 02/09/2019 14 - Other: See Comments Comments: Nasal/sinus SULFA (SULFONAMIDE ANTIBIOTICS) 08/20/2004 16 - Unknown Date Reviewed: 11/18/2024 Reviewed by: Abbe Rust MA - Fully Assessed Prescriptions as of 11/29/2024 - montelukast (SINGULAIR) 10 mg tablet Take 1 tablet by mouth daily at bedtime. - QVAR REDIHALER 40 mcg/actuation inhaler Inhale 2 Puffs as instructed two times a day. - gabapentin (NEURONTIN) 300 mg capsule Take 1 capsule by mouth two times a day for 180 days. - RESTASIS 0.05 % ophthalmic emulsion Use 1 Drop in both eyes two times a day. - meloxicam (MOBIC) 7.5 mg tablet Take 1 tablet by mouth once daily. - fluticasone (FLONASE) 50 mcg/actuation nasal spray instill 2 sprays into each nostril once daily - calcium carbonate (CALCIUM 300 ORAL) Take 1 tablet by mouth once daily. - albuterol HFA (VENTOLIN HFA) 90 mcg/actuation inhaler Inhale 2 Puffs as instructed every 4 hours as needed for wheezing/shortness of breath. - MELATONIN ORAL Take 10 mg by mouth at bedtime as needed. - L.ACID/L.CASEI/B.BIF/ B.ROBIN/FOS (PROBIOTIC BLEND ORAL) Take 1 tablet by mouth once daily. - folic acid 800 mcg ORAL Tab Take 800 mcg by mouth once daily. - DAILY MULTIVITAMIN TAB Take 1 tablet by mouth once daily. Facility-Administered Medications as of 11/29/2024 - denosumab 60 mg injection (PROLIA) [employer] Helper: Addendum Therapy (PT/OT/Speech/Resp) ID: [id number] 11/29/2024 9:39 AM Author: BARRERA MEJIA Signed by BARRERA MEJIA PT on 11/29/2024 at 9:39 AM * * * This document replaces document [id number] * * * Document text: Program_ID:[id number] Access Code: [email or web address] URL: [email or web address]/ Date: 11-29-2024 Prepared By: Barrera Mejia Program Notes Exercises - Hooklying Single Knee to Chest - 1 x daily - 7 x weekly - 3 sets - 3 reps - Supine Double Knee to Chest - 1 x daily - 7 x weekly - 3 sets - 3 reps - Supine Posterior Pelvic Tilt - 1 x daily - 7 x weekly - 3 sets - 10 reps - Seated Thoracic Flexion and Rotation with Citizen [place] Ball - 1 x daily - 7 x weekly - 2 sets - 10 reps - Supine Lower Trunk Rotation - 1 x daily - 7 x weekly - 2 sets - 10 reps - Supine March with Posterior Pelvic Tilt - 1 x daily - 7 x weekly - 3 sets - 10 reps - Bent Knee Fallouts - 1 x daily - 7 x weekly - 3 sets - 10 reps - Standing Anti-Rotation Press with Anchored Resistance - 1 x daily - 7 x weekly - 3 sets - 10 reps - Stir the Pot - 1 x daily - 7 x weekly - 3 sets - 10 reps ----- Normal [facility] THERAPY NTon 11-29-2024 THERAPY NT HNO ID: [id number] Author: BARRERA MEJIA PT Service: ? Author Type: Physical Therapist Type: Therapy (PT/OT/Speech/Resp) Filed: 11/29/2024 09:39 Note Text: Program_ID:[id number] Access Code: [email or web address] URL: [email or web address]/ Date: 11-29-2024 Prepared By: Barrera Mejia Program Notes Exercises - Hooklying Single Knee to Chest - 1 x daily - 7 x weekly - 3 sets - 3 reps - Supine Double Knee to Chest - 1 x daily - 7 x weekly - 3 sets - 3 reps - Supine Posterior Pelvic Tilt - 1 x daily - 7 x weekly - 3 sets - 10 reps - Seated Thoracic Flexion and Rotation with Citizen [place] Ball - 1 x daily - 7 x weekly - 2 sets - 10 reps - Supine Lower Trunk Rotation - 1 x daily - 7 x weekly - 2 sets - 10 reps - Supine March with Posterior Pelvic Tilt - 1 x daily - 7 x weekly - 3 sets - 10 reps - Bent Knee Fallouts - 1 x daily - 7 x weekly - 3 sets - 10 reps - Standing Anti-Rotation Press with Anchored Resistance - 1 x daily - 7 x weekly - 3 sets - 10 reps - Stir the Pot - 1 x daily - 7 x weekly - 3 sets - 10 reps Normal [facility] CNTHERAPYon 11-21-2024 CNTHERAPY OT/PT/Speech Visit (PTWS) LUPIS BRITO ([id number]) 1950 F Date Time Provider Department 11/21/24 12:30 PM ADRIANA SALCEDO PTCAIO Date Time Provider Department Center 11/21/2024 12:30 PM [id number], MARIAH PTWS Rashad Purcell Reason for Visit: Physical Therapy [503] Primary Visit Diagnosis:Spinal stenosis of lumbar region without neurogenic claudication [M48.061] Allergies As of Date: 11/21/2024 Noted Allergy Reaction CLINDAMYCIN 02/21/2023 2 - Rash BONIVA (IBANDRONATE) 07/09/2022 8 - GI Upset Comments: Increase in GERD DOXYCYCLINE 02/01/2024 14 - Other: See Comments Comments: Accelerated heart rate FOSAMAX (ALENDRONATE) 07/09/2022 8 - GI Upset Comments: Increase heartburn/GI MOLD 02/09/2019 14 - Other: See Comments Comments: Nasal/sinus PENICILLINS 08/20/2004 16 - Unknown POLLEN EXTRACTS 02/09/2019 14 - Other: See Comments Comments: Nasal/sinus SULFA (SULFONAMIDE ANTIBIOTICS) 08/20/2004 16 - Unknown Date Reviewed: 11/18/2024 Reviewed by: Abbe Rust MA - Fully Assessed Prescriptions as of 11/21/2024 - montelukast (SINGULAIR) 10 mg tablet Take 1 tablet by mouth daily at bedtime. - QVAR REDIHALER 40 mcg/actuation inhaler Inhale 2 Puffs as instructed two times a day. - gabapentin (NEURONTIN) 300 mg capsule Take 1 capsule by mouth two times a day for 180 days. - RESTASIS 0.05 % ophthalmic emulsion Use 1 Drop in both eyes two times a day. - meloxicam (MOBIC) 7.5 mg tablet Take 1 tablet by mouth once daily. - fluticasone (FLONASE) 50 mcg/actuation nasal spray instill 2 sprays into each nostril once daily - calcium carbonate (CALCIUM 300 ORAL) Take 1 tablet by mouth once daily. - albuterol HFA (VENTOLIN HFA) 90 mcg/actuation inhaler Inhale 2 Puffs as instructed every 4 hours as needed for wheezing/shortness of breath. - MELATONIN ORAL Take 10 mg by mouth at bedtime as needed. - L.ACID/L.CASEI/B.BIF/ B.ROBIN/FOS (PROBIOTIC BLEND ORAL) Take 1 tablet by mouth once daily. - folic acid 800 mcg ORAL Tab Take 800 mcg by mouth once daily. - DAILY MULTIVITAMIN TAB Take 1 tablet by mouth once daily. Facility-Administered Medications as of 11/21/2024 - denosumab 60 mg injection (PROLIA) [employer] Helper: Therapy (PT/OT/Speech/Resp) ID: [id number] 11/21/2024 12:55 PM Author: ADRIANA SALCEDO Signed by ADRIANA SALCEDO PSYCHIATRIC AIDES TEACHER on 11/21/2024 at 12:55 PM Document text: Program_ID:[id number] Access Code: [email or web address] URL: [email or web address]/ Date: 11-21-2024 Prepared By: Barrera Meija Program Notes Exercises - Hooklying Single Knee to Chest - 1 x daily - 7 x weekly - 3 sets - 3 reps - Supine Double Knee to Chest - 1 x daily - 7 x weekly - 3 sets - 3 reps - Supine Posterior Pelvic Tilt - 1 x daily - 7 x weekly - 3 sets - 10 reps - Seated Thoracic Flexion and Rotation with Citizen [place] Ball - 1 x daily - 7 x weekly - 2 sets - 10 reps - Supine Lower Trunk Rotation - 1 x daily - 7 x weekly - 2 sets - 10 reps - Supine March with Posterior Pelvic Tilt - 1 x daily - 7 x weekly - 3 sets - 10 reps - Bent Knee Fallouts - 1 x daily - 7 x weekly - 3 sets - 10 reps ----- Normal [facility] THERAPY NTon 11-21-2024 THERAPY NT HNO ID: [id number] Author: ADRIANA SALCEDO PTA Service: ? Author Type: Ciso Type: Therapy (PT/OT/Speech/Resp) Filed: 11/21/2024 12:55 Note Text: Program_ID:[id number] Access Code: [email or web address] URL: [email or web address] Date: 11-21-2024 Prepared By: Barrera Mejia Program Notes Exercises - Hooklying Single Knee to Chest - 1 x daily - 7 x weekly - 3 sets - 3 reps - Supine Double Knee to Chest - 1 x daily - 7 x weekly - 3 sets - 3 reps - Supine Posterior Pelvic Tilt - 1 x daily - 7 x weekly - 3 sets - 10 reps - Seated Thoracic Flexion and Rotation with Citizen [place] Ball - 1 x daily - 7 x weekly - 2 sets - 10 reps - Supine Lower Trunk Rotation - 1 x daily - 7 x weekly - 2 sets - 10 reps - Supine March with Posterior Pelvic Tilt - 1 x daily - 7 x weekly - 3 sets - 10 reps - Bent Knee Fallouts - 1 x daily - 7 x weekly - 3 sets - 10 reps Normal [facility] CNOVon 11-18-2024 CNOV Office Visit (FAMPWS ) LUPIS BRITO ([id number]) 1950 F Date Time Provider Department 11/18/24 9:20 AM TESS NAVARRETE During your visit today, we recorded the following information about you: Pulse Blood pressure Weight 80/minute 94/63 59 kg Tess Navarerte APRN.SNOW RANGER 11/18/2024 10:07 AM Signed Chief Complaint Patient presents with: ER F/U HPI Lupis Brito is a 74 year old female who presents here today for Above Complaints.. Patient presents for ER follow up for SVT. Patient reports she was not given any new prescriptions and told to follow up with her PCP for cardiology referral. Patient requesting to go to [facility]. Reports she was given adenosine which was effective. Past medical history, appointments, medications, allergies reviewed. [...] History PAST SURGICAL HISTORY Procedure Laterality Date BACK SURGERY HX SECTION HX 09/27/1980 COLSC FLX W/RMVL OF TUMOR POLYP LESION SNARE TQ 01/03/2008 Repeat in EGD TRANSORAL BIOPSY SINGLE/MULTIPLE 01/03/2008 EXC LESION TDN SHTH/JT CAPSL HAND/FNGR Right 04/10/2022 Excision ganglion cyst right 5th finger PAST SURGICAL HISTORY OF 07/27/1979 deviated septum Family History FAMILY HISTORY Problem Relation Age of Onset Hypertension Mother Lipids Mother Skin Cancer Mother chemo and radiation Heart Father irregular heart beat. Skin Cancer Sister Asthma No Family History Coronary Artery Disease No Family History Patient Allergies ALLERGIES Allergen Reactions Clindamycin Rash Boniva [Ibandronate] GI Upset Increase in GERD Doxycycline Other: See Comments Accelerated heart rate Fosamax [Alendronat* GI Upset Increase heartburn/GI Mold Other: See Comments Nasal/sinus Penicillins Unknown Pollen Extracts Other: See Comments Nasal/sinus Sulfa (Sulfonamide * Unknown Current Medications Current Outpatient Medications on File Prior to Visit Medication Sig montelukast (SINGULAIR) 10 mg tablet Take 1 tablet by mouth daily at bedtime. QVAR REDIHALER 40 mcg/actuation inhaler Inhale 2 Puffs as instructed two times a day. gabapentin (NEURONTIN) 300 mg capsule Take 1 capsule by mouth two times a day for 180 days. RESTASIS 0.05 % ophthalmic emulsion Use 1 Drop in both eyes two times a day. meloxicam (MOBIC) 7.5 mg tablet Take 1 tablet by mouth once daily. fluticasone (FLONASE) 50 mcg/actuation nasal spray instill 2 sprays into each nostril once daily calcium carbonate (CALCIUM 300 ORAL) Take 1 tablet by mouth once daily. albuterol HFA (VENTOLIN HFA) 90 mcg/actuation inhaler Inhale 2 Puffs as instructed every 4 hours as needed for wheezing/shortness of breath. MELATONIN ORAL Take 10 mg by mouth at bedtime as needed. L.ACID/L.CASEI/B.BIF/ B.ROBIN/FOS (PROBIOTIC BLEND ORAL) Take 1 tablet by mouth once daily. folic acid 800 mcg ORAL Tab Take 800 mcg by mouth once daily. DAILY MULTIVITAMIN TAB Take 1 tablet by mouth once daily. Current Facility-Administered Medications on File Prior to Visit Medication denosumab 60 mg injection (PROLIA) Social History Social History Tobacco Use Smoking status: Never Smokeless tobacco: Never Vaping Use Vaping status: Never Used Substance Use Topics Alcohol use: Yes Comment: occasionally Drug use: No Review of Symptoms REVIEW OF SYSTEMS SEE HPI EXAM: BP 94/63 Pulse 80 Wt 59 kg (130 lb 1.1 oz) BMI 22.41 kg/m? General Appearance: Well appearing, alert, in no acute distress, well-hydrated, well nourished. Lungs: Lungs clear to auscultation. No wheezing, rhonchi, rales.. Heart: RRR without murmur, gallop, or rubs. No ectopy. Health Maintenance List RSV Vaccine(1 - Risk 60-74 years 1-dose series) due on 08/16/2025 Annual PCP Team Chronic Disease Visit due on 08/16/2025 Depression Screening due on 08/16/2025 Anxiety Screening due on 08/16/2025 Bone Density Scree (more content not included)... Normal [facility] [id number] 11-18-2024 ECG01 Ventricular Rate : 7 0 BPM Atrial Rate : 70 BPM P-R Interval : 184 ms QRS Duration : 74 ms Q-T Interval : 400 ms QTC Calculation(Bazett) : 432 ms Calculated P [place] : 69 degrees Calculated R [place] : 52 degrees Calculated T [place] : 64 degrees NORMAL SINUS RHYTHM NORMAL ECG Confirmed by TACOS KAUFFMAN M.D. ([id number]) on 11/18/2024 4:39:20 PM NAME : LUPIS BRITO PID : [id number] : 1950 Gender : Female Race : ORD : Procedure Date : Nov 18 2024 09:51:44 Edit Date : Nov 18 2024 16:39:22 Diagnosis: NORMAL SINUS RHYTHM NORMAL ECG Confirmed by TACOS KAUFFMAN M.D. ([id number]) on 11/18/2024 4:39:20 PM Test Reason : Location : 136 : [place] Overread By : TACOS KAUFFMAN M.D. Edited By : TACOS KAUFFMAN M.D. Referred By : Tess Navarrete Acquired by : Femi fenton [facility] Absolute lymphocyte countOrd ered By: Isai Landeros on 11-15-2024 Lymphocytes Auto (Unsp spec) [#/Vol] 2.42 10*3/uL 0.83-4.51 [facility] Absolute neutrophil countOrd ered By: Isai Landeros on 11-15-2024 Neutrophils (Bld) [#/Vol] 7.2 10*3/uL 2.0-7.7 [facility] Anion gap in Serum or Plasma Ordered By: Isai Landeros on 11-15-2024 Anion gap [Moles/Vol] 13 mmol/L 5-15 [facility] Automated lymphocyte count a s percentage of total leukocytesOrdered By: Isai Landeros on 11-15-2024 Lymphocytes/100 WBC Auto (Unsp spec) 22.1 % 19-41 [facility] BUN/creatinine ratioOrdered By: Isai Landeros on 11-15-2024 Urea nitrogen/Creatinine [Mass ratio] 20.3 mg/mg High 10- [facility] Basic Metabolic Profile (BMP )on 11-15-2024 BUN/CRE 20.3 RATIO High 05-15 [facility] Comment on above: Performed By: #### L 500.2500, L100.0100 ####[facility] [address] [place], [address] Calcium [Mass/Vol] 9.9 mg/dL Normal 7.6-11.0 [facility] Comment on above: Performed By: #### L 500.2500, L100.0100 ####[facility] [address] [place], [address] Chloride [Moles/Vol] 102 mmol/L Normal 98-108 [facility] Comment on above: Performed By: #### L 500.2500, L100.0100 ####[facility] [address] [place], [address] CO2 [Moles/Vol] 22.9 mmol/L Normal 21.0-32.0 [facility] Comment on above: Performed By: #### L 500.2500, L100.0100 ####[facility] [address] [place], [address] Creatinine [Mass/Vol] 0.98 mg/dL Normal 0.70-1.20 [facility] Comment on above: Performed By: #### L 500.2500, L100.0100 ####[facility] [address] [place], [address] ECRCL 44.81 ml/min Low 50-250 [facility] Comment on above: Performed By: #### L 500.2500, L100.0100 ####[facility] [address] [place], [address] GAP 13 Normal 5-15 [facility] Comment on above: Performed By: #### L 500.2500, L100.0100 ####[facility] [address] [place], [address] GFR/1.73 sq M.predicted among non-blacks MDRD (S/P/Bld) [Vol rate/Area] 61 mL/min/{1.73_m2} Normal >60 [facility] Comment on above: Result Comment: mL/m in/1.73m2 CKD-EPI Creatinine Equation (2020) Performed By: #### L 500.2500, L100.0100 ####[facility] [address] [place], [address] Glucose [Mass/Vol] 105 mg/dL High 70-99 [facility] Comment on above: Performed By: #### L 500.2500, L100.0100 ####[facility] [address] [place], [address] Potassium [Moles/Vol] 4.3 mmol/L Normal 3.3-5.1 [facility] Comment on above: Performed By: #### L 500.2500, L100.0100 ####[facility] [address] [place], [address] Sodium [Moles/Vol] 138 mmol/L Normal 133-145 [facility] Comment on above: Performed By: #### L 500.2500, L100.0100 ####[facility] [address] [place], [address] Urea nitrogen [Mass/Vol] 20 mg/dL High 4-19 [facility] Comment on above: Performed By: #### L 500.2500, L100.0100 ####[facility] [address] [place], [address] Basophil percentageOrdered B y: Isai Landeros on 11-15-2024 Basophils/100 WBC (Bld) 1.2 % High 0-1 [facility] CBC W/Diff, Automatedon 10-26 Absolute Lymph 2.42 X10 3/uL Normal 0.83-4.51 [facility] Comment on above: Performed By: #### L 500.2500, L100.0100 ####[facility] [address] [place], [address] Absolute Neut 7.2 X10 3/uL Normal 2.0-7.7 [facility] Comment on above: Performed By: #### L 500.2500, L100.0100 ####[facility] [address] [place], [address] Basophils/100 WBC (Bld) 1.2 % High 0-1 [facility] Comment on above: Performed By: #### L 500.2500, L100.0100 ####[facility] [address] [place], [address] Eosinophils/100 WBC (Bld) 2.1 % Normal 0-5 [facility] Comment on above: Performed By: #### L 500.2500, L100.0100 ####[facility] [address] [place], [address] Erythrocyte distribution width (RBC) [Ratio] 13.9 % Normal 11.6-14.6 [facility] Comment on above: Performed By: #### L 500.2500, L100.0100 ####[facility] [address] [place], [address] Hematocrit (Bld) [Volume fraction] 42.0 % Normal 37-47 [facility] Comment on above: Performed By: #### L 500.2500, L100.0100 ####[facility] [address] [place], [address] Hemoglobin (Bld) [Mass/Vol] 14.1 g/dL Normal 12.0-15.0 [facility] Comment on above: Performed By: #### L 500.2500, L100.0100 ####[facility] [address] [place], [address] IG% 0.400 Normal 0.0-0.9 [facility] Comment on above: Result Comment: IG% - Immature Granulocytes (promyelocytes, myelocytes and metamyelocytes) > 1% indicates that a LEFT SHIFT is Present. Performed By: #### L 500.2500, L100.0100 ####[facility] [address] [place], [address] Lymphocytes/100 WBC (Bld) 22.1 % Normal 19-41 [facility] Comment on above: Performed By: #### L 500.2500, L100.0100 ####[facility] [address] [place], [address] MCH (RBC) [Entitic mass] 29.7 pg Normal 27.0-32.0 [facility] Comment on above: Performed By: #### L 500.2500, L100.0100 ####[facility] [address] [place], [address] MCHC (RBC) [Mass/Vol] 33.6 g/dL Normal 32-36 [facility] Comment on above: Performed By: #### L 500.2500, L100.0100 ####[facility] [address] [place], [address] MCV (RBC) [Entitic vol] 88.6 fL Normal 81-99 [facility] Comment on above: Performed By: #### L 500.2500, L100.0100 ####[facility] [address] [place], [address] Monocytes/100 WBC (Bld) 8.1 % Normal 0-10 [facility] Comment on above: Performed By: #### L 500.2500, L100.0100 ####[facility] [address] [place], [address] Neutrophils/100 WBC (Bld) 66.1 % Normal 47-70 [facility] Comment on above: Performed By: #### L 500.2500, L100.0100 ####[facility] [address] [place], [address] Nucleated RBC (Bld) [#/Vol] 0 10*3/uL Normal 0-5 [facility] Comment on above: Performed By: #### L 500.2500, L100.0100 ####[facility] [address] [place], [address] Platelet mean volume (Bld) [Entitic vol] 9.4 fL Normal 6.2-12.0 [facility] Comment on above: Performed By: #### L 500.2500, L100.0100 ####[facility] [address] [place], [address] Platelets (Bld) [#/Vol] 350 10*3/uL Normal 150-450 [facility] Comment on above: Performed By: #### L 500.2500, L100.0100 ####[facility] [address] [place], [address] RBC (Bld) [#/Vol] 4.74 10*6/uL Normal 4.2-5.4 [facility] Comment on above: Performed By: #### L 500.2500, L100.0100 ####[facility] [address] [place], [address] RDW SD 44.9 fl High 35.1-43.9 [facility] Comment on above: Performed By: #### L 500.2500, L100.0100 ####[facility] [address] [place], [address] WBC (Bld) [#/Vol] 10.9 10*3/uL Normal 4.4-11.0 [facility] Comment on above: Performed By: #### L 500.2500, L100.0100 ####[facility] [address] [place], [address] CNTHERAPYon 11-15-2024 CNTHERAPY OT/PT/Speech Visit (PTWS) LUPIS BRITO ([id number]) 1950 F Date Time Provider Department 11/15/24 8:45 AM ADRIANA SALCEDO Date Time Provider Department Center 11/15/2024 8:45 AM [id number], MARIAH PTCAIO [facility] Reason for Visit: Appointment Cancelled [1023] Allergies As of Date: 11/15/2024 Noted Allergy Reaction CLINDAMYCIN 02/21/2023 2 - Rash BONIVA (IBANDRONATE) 07/09/2022 8 - GI Upset Comments: Increase in GERD DOXYCYCLINE 02/01/2024 14 - Other: See Comments Comments: Accelerated heart rate FOSAMAX (ALENDRONATE) 07/09/2022 8 - GI Upset Comments: Increase heartburn/GI MOLD 02/09/2019 14 - Other: See Comments Comments: Nasal/sinus PENICILLINS 08/20/2004 16 - Unknown POLLEN EXTRACTS 02/09/2019 14 - Other: See Comments Comments: Nasal/sinus SULFA (SULFONAMIDE ANTIBIOTICS) 08/20/2004 16 - Unknown Date Reviewed: 10/20/2024 Reviewed by: Charles Meredith MA - Fully Assessed Prescriptions as of 11/15/2024 - montelukast (SINGULAIR) 10 mg tablet Take 1 tablet by mouth daily at bedtime. - QVAR REDIHALER 40 mcg/actuation inhaler Inhale 2 Puffs as instructed two times a day. - gabapentin (NEURONTIN) 300 mg capsule Take 1 capsule by mouth two times a day for 180 days. - RESTASIS 0.05 % ophthalmic emulsion Use 1 Drop in both eyes two times a day. - meloxicam (MOBIC) 7.5 mg tablet Take 1 tablet by mouth once daily. - fluticasone (FLONASE) 50 mcg/actuation nasal spray instill 2 sprays into each nostril once daily - calcium carbonate (CALCIUM 300 ORAL) Take 1 tablet by mouth once daily. - albuterol HFA (VENTOLIN HFA) 90 mcg/actuation inhaler Inhale 2 Puffs as instructed every 4 hours as needed for wheezing/shortness of breath. - MELATONIN ORAL Take 10 mg by mouth at bedtime as needed. - L.ACID/L.CASEI/B.BIF/ B.ROBIN/FOS (PROBIOTIC BLEND ORAL) Take 1 tablet by mouth once daily. - folic acid 800 mcg ORAL Tab Take 800 mcg by mouth once daily. - DAILY MULTIVITAMIN TAB Take 1 tablet by mouth once daily. Facility-Administered Medications as of 11/15/2024 - denosumab 60 mg injection (PROLIA) Normal [facility] Carbon dioxide, total [Moles /volume] in Central venous bloodOrdered By: Isai Landeros on 11-15-2024 CO2 [Moles/Vol] 22.9 mmol/L 21.0-32.0 [facility] Chest 1 View (Portable)on Chest 1 View (Portable) [facility] Imaging Services [address] [place] [address] Chest 1 View (Portable) MR#: [id number] Acct: [id number] Name: LUPIS BRITO Rep #: [id number] : 1950 F 74 From: Ignacio Burgos MD PCP: Dr. Tacos Hein MD Status: [facility] ER Study: Chest 1 View (Portable) Date of Exam: 11/15/24 Exam# [id number] Ordering Dr: Isai Landeros DO EXAM: XR Chest, 1 View CLINICAL INDICATION: SHORTNESS OF BREATH TECHNIQUE: Frontal view of the chest. COMPARISON: No relevant prior studies available. FINDINGS: LUNGS AND PLEURAL SPACES: Unremarkable. No consolidation. No pneumothorax. HEART: Unremarkable. No cardiomegaly. MEDIASTINUM: Unremarkable. Normal mediastinal contour. BONES/JOINTS: Unremarkable. No acute fracture. RAD/Chest 1 View (Portable) IMPRESSION: No acute cardiopulmonary process. Reading Location: [facility] CC: Dr. Isai Landeros DO; Dr. Tacos Hein MD Geophysical Computer: Signed Normal [facility] Chloride assayOrdered By: Vincent Landeros on 11-15-2024 Chloride [Moles/Vol] 102 mmol/L 98-108 [facility] Emergency Department Summary on 11-15-2024 Emergency Department Summary [facility] Medical Records Department [address] [place] [address] Emergency Department Summary 11/15/24 MR#: [id number] Acct: [id number] Name: LUPIS BRITO Rep #: [id number] : 1950 74 From: Isai Landeros DO PCP: Dr. Tacos Hein MD Status:DEP ER Location: ED HPI History of Present Illness Chief Complaint: Palpitations Informant: patient Onset/Context/Timing Onset: Today Context: Sudden Onset Timing: Continuous Quality: Racing, tightness Location: Chest Worsened by: Nothing Relieved by: Nothing Narrative Narrative: Patient presents with palpitations that began this morning. Patient states she feels like her heart is racing. Patient states that started about 5:30 AM today. Patient states it has been constant. Patient states nothing makes it better and nothing makes it worse. Patient admits to some slight shortness of breath. Patient denies any nausea or vomiting. Patient states she does have some pain into her upper back. Patient denies any fevers or chills. [facility] Medical History (Updated 11/15/24 @ 12:[address] Isai Landeros DO) Chronic asthma Elevated troponin Chest pain Asthma Arthritis Home Medications ???Medication ???Instructions ???Recorded ???Last Taken ???Type albuterol sulfate 90 mcg/actuation 2 puff inhalation Q4H PRN Unknown History aerosol inhaler shortness of breath or wheezing denosumab 60 mg/mL subcutaneous 60 mg subcut .[id number] bone health 01/28/24 10/04/24 History syringe (Prolia) gabapentin 300 mg capsule 300 mg PO Q12H nerve pain 01/28/24 11/15/24 History meloxicam 7.5 mg tablet 7.5 mg PO DAILY pain 01/28/2410/26 History montelukast 10 mg tablet 10 mg PO QHS allergies 01/28/24 History beclomethasone dipropionate 40 2 inh inhalation BID 11/15/2410/26 History mcg/actuation HFA breath activated aerosol (Qvar RediHaler) cyclosporine 0.05 % eye drops in a 1 drp ophthalmic (eye) BID 11/1511/15/24 History dropperette (Restasis) fluticasone propionate 50 2 spray intranasal DAILY 11/15/24 11/15/24 History mcg/actuation nasal spray,suspension Allergy/AdvReac Type Severity Reaction Status Date / Time doxycycline AdvReac Intermediate Other Verified 11/15/24 09:06 Penicillins AdvReac Mild Nausea Verified 11/15/24 09:06 Sulfa (Sulfonamide AdvReac Mild Nausea Verified 11/15/24 09:06 Antibiotics) Surgical History (Updated 11/15/24 @ 09:[address] Isai Landeros DO) Hx of section Hx of rhinoplasty Social History Smoking Status: Never smoker ROS ROS ED Constitutional Constitutional ED: Denies chills or fever(s) Eyes Eyes: Denies blurry vision or change in vision ENT ENT ED: Denies rhinorrhea or sore throat Cardiovascular Cardiovascular: Reports chest pain and palpitations Respiratory/Chest Respiratory/Chest: Reports dyspnea; Denies cough Gastrointestinal Gastrointestinal: Denies nausea or vomiting Genitourinary Genitourinary ED: Denies dysuria or hematuria Musculoskeletal Musculoskeletal: Reports back pain and neck pain Integumentary Reports rash; Denies abscess Neurologic Neurologic: Denies headache(s) or weakness Allergic/Immunologic Allergic/Immunologic ED: Denies mouth swelling or urticaria EXAM Physical Exam Const Vital Signs: 11/15/24 09:02 11/15/24 09:02 11/15/24 09:11 Temperature 98.2 F Temperature Source Oral Pulse Rate 147 H 133 H Respiratory Rate 19 H 16 Respiratory Effort Normal Blood Pressure 113/93 H 127/89 H Blood Pressure Mean 99 101 Pulse Ox 99 97 Oxygen Delivery Method Room Air Room Air 11/15/24 10:11 11/15/24 11:00 11/15/24 12:00 Temperature Temperature Source Pulse Rate 81 63 75 Respiratory Rate 13 18 16 Respiratory Effort Blood Pressure 102/77 123/80 H 123/80 H Blood Pressure Mean 85 94 94 Pulse Ox 100 98 98 Oxygen Delivery Method Room Air 11/15/24 12:11 Temperature 98.6 F Temperature Source Pulse Rate 75 Respiratory Rate 16 Respiratory Effort Blood Pressure 123/80 H Blood Pressure Mean 94 Pulse Ox 98 Oxygen Delivery Method Positive well nourished and well developed Constitutional Narrative: BMI is 22.0 General Appearance ED: well developed and NAD HEENT Reports moist mucous membranes Neck supple and no JVD Resp normal respiratory effort and clear to auscultation bilaterally Cardio regular rhythm Rate: tachycardic GI non-tender and non-distended Palpation: soft Extremity normal to inspection General Extremety ED: Negative for edema or tenderness General Extremity: Negative for edema Neuro oriented x3, CN's II-XII intact bilaterally and no sensor (more content not included)... Normal [facility] Eosinophil percentageOrdered By: Isai Landeros on 11-15-2024 Eosinophils/100 WBC (Bld) 2.1 % 0-5 [facility] Erythrocyte distribution wid th (RBC) [Ratio]Ordered By: Isai Landeros on 11-15-2024 Erythrocyte distribution width (RBC) [Entitic vol] 44.9 fL High 35.1-43.9 [facility] Erythrocyte distribution wid th ratioOrdered By: Isai Landeros on 11-15-2024 Erythrocyte distribution width (RBC) [Ratio] 13.9 % 11.6-14.6 [facility] Erythrocyte distribution wid th standard deviationOrdered By: Isai Landeros on 11-15-2024 Erythrocyte distribution width (RBC) [Ratio] 44.9 fl High 35.1-43.9 [facility] Estimation of creatinine katiana aranceOrdered By: Isai Landeros on 11-15-2024 Estimated Creatinine Clearance Calc 44.81 ml/min Low 50-250 [facility] GFR/1.73 sq M.predicted adam g non-blacks MDRD (S/P/Bld) [Vol rate/Area]Ordered By: Isai Landeros on 11-15-2024 Estimated GFR (MDRD) Non-Af Amer 61 >60 [facility] Comment on above: mL/min/1.73m2 CKD-EP I Creatinine Equation (2020) Glomerular filtration rate ( GFR) estimation/1.73 sq m using serum, plasma, or whole bOrdered By: Isai Landeros on 11-15-2024 GFR/1.73 sq M.predicted among non-blacks MDRD (S/P/Bld) [Vol rate/Area] 61 mL/min/{1.73_m2} >60 [facility] Comment on above: mL/min/1.73m2 CKD-EP I Creatinine Equation (2020) Hematocrit Auto (Bld) [Volum e fraction]Ordered By: Isai Landeros on 11-15-2024 Hematocrit (Bld) [Volume fraction] 42.0 % 37-47 [facility] Hemoglobin measurementOrdere d By: Isai Landeros on 11-15-2024 Hemoglobin (Bld) [Mass/Vol] 14.1 g/dL 12.0-15.0 [facility] Immature granulocytes/100 WB C Auto (Bld)Ordered By: Isai Landeros on 11-15-2024 Immature granulocytes/100 WBC (Bld) 0.400 % 0.0-0.9 [facility] Comment on above: IG% - Immature Granu locytes (promyelocytes, myelocytes and metamyelocytes) > 1% indicates that a LEFT SHIFT is Present. L499.0042on 11-15-2024 Trop T High Sen 12 ng/L Normal <=14 [facility] Comment on above: Performed By: #### L 499.0042 #### [facility] [address] [place], [place] [address]taisha. [place], [place], [address] L499.0043on 11-15-2024 Trop T High Sen Normal <=14 [facility] Comment on above: Result Comment: Canc elled via OM: Order cancelled - Patient discharged Performed By: #### L 499.0043 #### [facility] [address] [place], [place], [address] L501.4021on 11-15-2024 Trop T High Sen 7 ng/L Normal <=14 [facility] Comment on above: Performed By: #### L 501.4021 ####[facility] [address] [place], [place], [address] Lymphocytes Auto (Unsp spec) [#/Vol]Ordered By: Isai Landeros on 11-15-2024 Lymphocytes (Bld) [#/Vol] 2.42 10*3/uL 0.83-4.51 [facility] Lymphocytes/100 WBC Auto (Un sp spec)Ordered By: Isai Landeros on 11-15-2024 Lymphocytes/100 WBC (Bld) 22.1 % 19-41 [facility] MCV (mean corpuscular volume ) determinationOrdered By: Isai Landeros on 11-15-2024 MCV (RBC) [Entitic vol] 88.6 fL 81-99 [facility] Mean corpuscular hemoglobin (MCH) determinationOrdered By: Isai Landeros on 11-15-2024 MCH (RBC) [Entitic mass] 29.7 pg 27.0-32.0 [facility] Mean corpuscular hemoglobin concentration (MCHC) determinationOrdered By: Isai Landeros on 11-15-2024 MCHC (RBC) [Mass/Vol] 33.6 g/dL 32-36 [facility] Mean platelet volume determi nationOrdered By: Isai Landeros on 11-15-2024 Platelet mean volume (Bld) [Entitic vol] 9.4 fL 6.2-12.0 [facility] Monocyte percentageOrdered B y: Isai Landeros on 11-15-2024 Monocytes/100 WBC (Bld) 8.1 % 0-10 [facility] Neutrophil percentageOrdered By: Isai Landeros on 11-15-2024 Neutrophils/100 WBC (Bld) 66.1 % 47-70 [facility] Nucleated red blood cell per centageOrdered By: Isai Landeros on 11-15-2024 Nucleated RBC/100 WBC (Bld) [Ratio] 0 % 0-5 [facility] Platelet countOrdered By: Vincent Landeros on 11-15-2024 Platelets (Bld) [#/Vol] 350 10*3/uL 150-450 [facility] Potassium (Unsp spec) [Mass/ Vol]Ordered By: Isai Landeros on 11-15-2024 Potassium [Moles/Vol] 4.3 mmol/L 3.3-5.1 [facility] Potassium measurement (mass/ volume)Ordered By: Isai Landeros on 11-15-2024 Potassium (Unsp spec) [Mass/Vol] 4.3 mmol/L 3.3-5.1 [facility] RBC Auto (Bld) [#/Vol]Ordere d By: Isai Landeros on 11-15-2024 RBC (Bld) [#/Vol] 4.74 10*6/uL 4.2-5.4 [facility] Serum creatinine measurement (mass/volume)Ordered By: Isai Landeros on 11-15-2024 Creatinine [Mass/Vol] 0.98 mg/dL 0.70-1.20 [facility] Serum glucose measurement (m ass/volume)Ordered By: Isai Lnaderos on 11-15-2024 Glucose [Mass/Vol] 105 mg/dL High 70-99 [facility] Serum or plasma calcium radha urement (mass/volume)Ordered By: Isai Landeros on 11-15-2024 Calcium [Mass/Vol] 9.9 mg/dL 7.6-11.0 [facility] Serum or plasma urea nitroge n measurement (mass/volume)Ordered By: Isai Landeros on 11-15-2024 Urea nitrogen [Mass/Vol] 20 mg/dL High 4-19 [facility] Sodium levelOrdered By: Isai Landeros on 11-15-2024 Sodium [Moles/Vol] 138 mmol/L 133-145 [facility] Troponin T.cardiac High sens itivity method [Mass/Vol]Ordered By: Isai Landeros on 11-15-2024 Troponin T High Sensitivity 2 Hour 12 ng/L <14 [facility] Troponin T High Sensitivity 7 ng/L <14 [facility] Troponin T.cardiac [Mass/vol ume] in Serum or Plasma by High sensitivity methodOrdered By: Isai Landeros on 11-15-2024 Troponin T.cardiac High sensitivity method [Mass/Vol] 12 ng/L <14 [facility] Troponin T.cardiac High sensitivity method [Mass/Vol] 7 ng/L <14 [facility] White blood cell (WBC) count Ordered By: Isai Landeros on 11-15-2024 WBC (Bld) [#/Vol] 10.9 10*3/uL 4.4-11.0 [facility] CNTHERAPYon 11-08-2024 CNTHERAPY OT/PT/Speech Visit (PTWS) LUPIS BRITO ([id number]) 1950 F Date Time Provider Department 11/08/24 8:45 AM ADRIANA SALCEDO PTCAIO Date Time Provider Department Center 11/08/2024 8:45 AM [id number], MARIAH PTWS [facility] Reason for Visit: Physical Therapy [503] Primary Visit Diagnosis:Spinal stenosis of lumbar region without neurogenic claudication [M48.061] Allergies As of Date: 11/08/2024 Noted Allergy Reaction CLINDAMYCIN 02/21/2023 2 - Rash BONIVA (IBANDRONATE) 07/09/2022 8 - GI Upset Comments: Increase in GERD DOXYCYCLINE 02/01/2024 14 - Other: See Comments Comments: Accelerated heart rate FOSAMAX (ALENDRONATE) 07/09/2022 8 - GI Upset Comments: Increase heartburn/GI MOLD 02/09/2019 14 - Other: See Comments Comments: Nasal/sinus PENICILLINS 08/20/2004 16 - Unknown POLLEN EXTRACTS 02/09/2019 14 - Other: See Comments Comments: Nasal/sinus SULFA (SULFONAMIDE ANTIBIOTICS) 08/20/2004 16 - Unknown Date Reviewed: 10/20/2024 Reviewed by: Charles Meredith MA - Fully Assessed Prescriptions as of 11/10/2024 - montelukast (SINGULAIR) 10 mg tablet Take 1 tablet by mouth daily at bedtime. - QVAR REDIHALER 40 mcg/actuation inhaler Inhale 2 Puffs as instructed two times a day. - gabapentin (NEURONTIN) 300 mg capsule Take 1 capsule by mouth two times a day for 180 days. - RESTASIS 0.05 % ophthalmic emulsion Use 1 Drop in both eyes two times a day. - meloxicam (MOBIC) 7.5 mg tablet Take 1 tablet by mouth once daily. - fluticasone (FLONASE) 50 mcg/actuation nasal spray instill 2 sprays into each nostril once daily - calcium carbonate (CALCIUM 300 ORAL) Take 1 tablet by mouth once daily. - albuterol HFA (VENTOLIN HFA) 90 mcg/actuation inhaler Inhale 2 Puffs as instructed every 4 hours as needed for wheezing/shortness of breath. - MELATONIN ORAL Take 10 mg by mouth at bedtime as needed. - L.ACID/L.CASEI/B.BIF/ B.ROBIN/FOS (PROBIOTIC BLEND ORAL) Take 1 tablet by mouth once daily. - folic acid 800 mcg ORAL Tab Take 800 mcg by mouth once daily. - DAILY MULTIVITAMIN TAB Take 1 tablet by mouth once daily. 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/OT/Speech/Resp) ID: [id number] 11/08/2024 9:29 AM Author: ADRIANA SALCEDO Signed by ADRIANA SALCEDO PSYCHIATRIC AIDES TEACHER on 11/08/2024 at 9:29 AM Document text: Program_ID:[id number] Access Code: [email or web address] URL: [email or web address]/ Date: 11-08-2024 Prepared By: Barrera Mejia Program Notes Exercises - Hooklying Single Knee to Chest - 1 x daily - 7 x weekly - 3 sets - 3 reps - Supine Double Knee to Chest - 1 x daily - 7 x weekly - 3 sets - 3 reps - Supine Posterior Pelvic Tilt - 1 x daily - 7 x weekly - 3 sets - 10 reps - Seated Thoracic Flexion and Rotation with Citizen Of [place] Ball - 1 x daily - 7 x weekly - 2 sets - 10 reps - Supine Lower Trunk Rotation - 1 x daily - 7 x weekly - 2 sets - 10 reps ----- Normal [facility] THERAPY NTon 11-08-2024 THERAPY NT HNO ID: [id number] Author: ADRIANA SALCEDO PTA Service: ? Author Type: Ciso Type: Therapy (PT/OT/Speech/Resp) Filed: 11/08/2024 09:29 Note Text: Program_ID:[id number] Access Code: [email or web address] URL: [email or web address] Date: 11-08-2024 Prepared By: Barrera Mejia Program Notes Exercises - Hooklying Single Knee to Chest - 1 x daily - 7 x weekly - 3 sets - 3 reps - Supine Double Knee to Chest - 1 x daily - 7 x weekly - 3 sets - 3 reps - Supine Posterior Pelvic Tilt - 1 x daily - 7 x weekly - 3 sets - 10 reps - Seated Thoracic Flexion and Rotation with Citizen Of [place] Ball - 1 x daily - 7 x weekly - 2 sets - 10 reps - Supine Lower Trunk Rotation - 1 x daily - 7 x weekly - 2 sets - 10 reps Normal [facility] [id number] 10-24-2024 [id number] HNO ID: [id number] Author: BARRERA MEJAI PT Service: ? Author Type: Physical Therapist Type: [id number] Filed: 10/24/2024 10:46 Note Text: [facility] Physical Therapy Plan of Care Certification Patient Name: Lupis Brito : 1950 [facility] #: [id number] Date: 10/24/2024 To: Rody Pablo PA-C From Therapist: Barrera Mejia PT RE: Patient Certification/ Recertification Your review, approval and electronic signature are required in order to comply with Payor: [employer] MEDICARE / Plan: [employer] MEDICARE PPO / Product Type: PPO / regulations. The identified Physical Therapy PLAN OF CARE for the patient is as follows: M48.061 Spinal stenosis of lumbar region without neurogenic claudication (primary encounter diagnosis) PLAN OF CARE: Assessment: Lupis Brito presents with chief complaint of LBP and BLE numbness that interferes with sitting, walking in the community, heavy exertion . The patient presents with impairments in ADL's, overall function, range of motion, strength, and symptom management. PROMIS? (Patient-Reported Outcomes Measurement Information System) scores were reviewed and identified as a rehabilitation concern. Prognosis for therapy is Good due to: current objective clinical presentation, good overall health status, within-session changes, good support system/ coping skills . The patient will benefit from skilled therapy services to meet the goals established for this plan of care as noted below. Classification Pain Mechanism Classification: Neuropathic Low Back Pain Classification: Symptom Modulation Goals for Episode of Care: established 10/24/24 Independent in home exercises. Patient will decrease pain rating by 2 points to meet minimal clinical important difference for numeric pain rating scale. Restore pain-free lumbar ROM to WNL to allow for decreased pain and improved functional mobility Sleep through night without pain/symptoms. Sit 1 hours without pain/symptoms to allow for improved tolerance for driving and sitting ADLs Patient will increase strength of trunk/core to 4/5 to allow for improve ability to complete ADLs. Time Frame for Goals and Treatment : 12/24/24 Planned Interventions, Frequency, and Duration: Current Frequency: 1x/week Duration: 8 weeks Total Number of Visits Planned: 8 Planned Treatment Interventions: Therapeutic exercise (31997), Neuromuscular re-education (24629), Manual therapy (18236), Therapeutic activities (15742), Self-alf management (37937), Patient/Family/Caregi leonila Education, Body Mechanics Training PLAN FOR NEXT VISIT: Continue flexion bias, may trial traction, neutral spine strengthening Patient demonstrates good understanding of plan of care and treatment. The above goals and plan of care were discussed and agreed upon by patient/family. For further details regarding this patient refer to the Physical Therapy electronically documented visit dated 10/24/2024. Provider Attestation I have reviewed the treatment plan for Lupis Brito, [facility]# [id number] for the period of 10/24/24 -- 01/23/25, established on 10/24/2024. Signature certifies the need for therapy services. Normal [facility] CNTHERAPYon 10-24-2024 CNTHERAPY OT/PT/Speech Visit (PTWS) LUPIS BRITO ([id number]) 1950 F Date Time Provider Department 10/24/24 9:00 AM BARRERA MEJIA Date Time Provider Department Center 10/24/2024 9:00 AM [id number], SEAN PTCAIO Purcell Reason for Visit: PT Eval [747] Primary Visit Diagnosis:Spinal stenosis of lumbar region without neurogenic claudication [M48.061] Allergies As of Date: 10/24/2024 Noted Allergy Reaction CLINDAMYCIN 02/21/2023 2 - Rash BONIVA (IBANDRONATE) 07/09/2022 8 - GI Upset Comments: Increase in GERD DOXYCYCLINE 02/01/2024 14 - Other: See Comments Comments: Accelerated heart rate FOSAMAX (ALENDRONATE) 07/09/2022 8 - GI Upset Comments: Increase heartburn/GI MOLD 02/09/2019 14 - Other: See Comments Comments: Nasal/sinus PENICILLINS 08/20/2004 16 - Unknown POLLEN EXTRACTS 02/09/2019 14 - Other: See Comments Comments: Nasal/sinus SULFA (SULFONAMIDE ANTIBIOTICS) 08/20/2004 16 - Unknown Date Reviewed: 10/20/2024 Reviewed by: Charles Meredith MA - Fully Assessed Prescriptions as of 10/24/2024 - QVAR REDIHALER 40 mcg/actuation inhaler Inhale 2 Puffs as instructed two times a day. - gabapentin (NEURONTIN) 300 mg capsule Take 1 capsule by mouth two times a day for 180 days. - RESTASIS 0.05 % ophthalmic emulsion Use 1 Drop in both eyes two times a day. - meloxicam (MOBIC) 7.5 mg tablet Take 1 tablet by mouth once daily. - montelukast (SINGULAIR) 10 mg tablet Take 1 tablet by mouth daily at bedtime. - fluticasone (FLONASE) 50 mcg/actuation nasal spray instill 2 sprays into each nostril once daily - calcium carbonate (CALCIUM 300 ORAL) Take 1 tablet by mouth once daily. - albuterol HFA (VENTOLIN HFA) 90 mcg/actuation inhaler Inhale 2 Puffs as instructed every 4 hours as needed for wheezing/shortness of breath. - MELATONIN ORAL Take 10 mg by mouth at bedtime as needed. - L.ACID/L.CASEI/B.BIF/ B.ROBIN/FOS (PROBIOTIC BLEND ORAL) Take 1 tablet by mouth once daily. - folic acid 800 mcg ORAL Tab Take 800 mcg by mouth once daily. - DAILY MULTIVITAMIN TAB Take 1 tablet by mouth once daily. Facility-Administered Medications as of 10/24/2024 - denosumab 60 mg injection (PROLIA) [employer] Helper: Addendum Therapy (PT/OT/Speech/Resp) ID: [id number] 10/24/2024 9:38 AM Author: BARRERA MEJIA Signed by BARRERA MEJIA PT on 10/24/2024 at 9:38 AM * * * This document replaces document [id number] * * * Document text: Program_ID:[id number] Access Code: [email or web address] URL: [email or web address]/ Date: 10-24-2024 Prepared By: Barrera Mejia Program Notes Exercises - Hooklying Single Knee to Chest - 1 x daily - 7 x weekly - 3 sets - 3 reps - Supine Double Knee to Chest - 1 x daily - 7 x weekly - 3 sets - 3 reps - Supine Posterior Pelvic Tilt - 1 x daily - 7 x weekly - 3 sets - 10 reps ----- Normal [facility] THERAPY NTon 10-24-2024 THERAPY NT HNO ID: [id number] Author: BARRERA MEJIA PT Service: ? Author Type: Physical Therapist Type: Therapy (PT/OT/Speech/Resp) Filed: 10/24/2024 09:38 Note Text: Program_ID:[id number] Access Code: [email or web address] URL: [email or web address]/ Date: 10-24-2024 Prepared By: Barrera Mejia Program Notes Exercises - Hooklying Single Knee to Chest - 1 x daily - 7 x weekly - 3 sets - 3 reps - Supine Double Knee to Chest - 1 x daily - 7 x weekly - 3 sets - 3 reps - Supine Posterior Pelvic Tilt - 1 x daily - 7 x weekly - 3 sets - 10 reps Normal [facility] CNOVSPon 10-20-2024 CNOVSP Visit (SP) Office (HEMAWS) LUPIS BRITO ([id number]) 1950 F Date Time Provider Department 10/20/24 9:10 AM CODY JULIAN During your visit today, we recorded the following information about you: Temperature Pulse Blood pressure Weight 98.2 degrees 69/minute 113/75 59.4 kg Height 1.623 m Cody Julian DO 10/20/2024 10:03 AM Signed Oncologic problem(s): 1) 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 HPI: The patient is a 74-year-old female with a past medical history as outlined below. Protein electrophoresis was ordered to workup symptoms of peripheral neuropathy. EMG testing at [facility] suggested left and right peroneal neuropathy with evidence of a mild conduction block at the fibular head bilaterally. There was no electrodiagnostic evidence of peripheral polyneuropathy or lumbosacral radiculopathy. Trace proteinuria on urinalysis 08/12/2024. CBC and chemistry panels in July 2024 were unremarkable. Initial consultation: Fatigued, but active. Walks her dog. Goes to [employer]. Occasional dizziness. Intermittent dull FISHER. Describes the neuropathy as numbness of the soles of the feet and the toes. Toes are very sensitive at night when the sheet is on them. She does not have any balance problems. No strength problems. Occasionally the pain will radiate up to the knee on the left more laterally not so much on the right. Presents for ongoing hematologic management. Interim history: Had MRI spine--results reviewed. Explains symptoms. PAST MEDICAL HISTORY Diagnosis Date Acute gastritis [...] 12/12/2009 PAST SURGICAL HISTORY Procedure Laterality Date BACK SURGERY HX SECTION HX 09/27/1980 COLSC FLX W/RMVL OF TUMOR POLYP LESION SNARE TQ 01/03/2008 Repeat in EGD TRANSORAL BIOPSY SINGLE/MULTIPLE 01/03/2008 EXC LESION TDN SHTH/JT CAPSL HAND/FNGR Right 04/10/2022 Excision ganglion cyst right 5th finger PAST SURGICAL HISTORY OF 07/27/1979 deviated septum QVAR REDIHALER 40 mcg/actuation inhalerInhale 2 Puffs as instructed two times a day.Disp: Rfl: gabapentin (NEURONTIN) 300 mg capsuleTake 1 capsule by mouth two times a day for 180 days.Disp: 180 capsuleRfl: 1 RESTASIS 0.05 % ophthalmic emulsionUse 1 Drop in both eyes two times a day.Disp: Rfl: meloxicam (MOBIC) 7.5 mg tabletTake 1 tablet by mouth once daily.Disp: 90 tabletRfl: 1 montelukast (SINGULAIR) 10 mg tabletTake 1 tablet by mouth daily at bedtime.Disp: 90 tabletRfl: 1 fluticasone (FLONASE) 50 mcg/actuation nasal sprayinstill 2 sprays into each nostril once dailyDisp: 3 EachRfl: 3 calcium carbonate (CALCIUM 300 ORAL)Take 1 tablet by mouth once daily.Disp: Rfl: albuterol HFA (VENTOLIN HFA) 90 mcg/actuation inhalerInhale 2 Puffs as instructed every 4 hours as needed for wheezing/shortness of breath.Disp: 3 EachRfl: 2 MELATONIN ORALTake 10 mg by mouth at bedtime as needed.Disp: Rfl: VITAMIN B COMPLEX ORALTake by mouth.Disp: Rfl: L.ACID/L.CASEI/B.BIF/ B.ROBIN/FOS (PROBIOTIC BLEND ORAL)Take 1 tablet by mouth once daily.Disp: Rfl: folic acid 800 mcg ORAL TabTake one(1) tablet daily.Disp: Rfl: 0 DAILY MULTIVITAMIN TABTake one(1) tablet daily.Disp: Rfl: 0 ALLERGIES Allergen Reactions Clindamycin Rash Boniva [Ibandronate] GI Upset Increase in GERD Doxycycline Other: See Comments Accelerated heart rate Fosamax [Alendronat* GI Upset Increase heartburn/GI Mold Other: See Comments Nasal/sinus Penicillins Unknown Pollen Extracts Other: See Comments Nasal/sinus Sulfa (Sulfonamide * Unknown Social History Tobacco Use Smoking status: Never Smokeless tobacco: Never Vaping Use Vaping status: Never Used Substance Use Topics Alcohol use: Yes Comment: occasionally Drug use: No FAMILY HISTORY Problem Relation Age of Onset Hypertension Mother Lipids Mother Skin Cancer Mother chemo and radiation Heart Father irregular heart beat. Skin Cancer Sister Asthma No Family History Coronary Artery Disease No Family Histo (more content not included)... Normal [facility] MR Lumbar spine WO contrasto n 10-12-2024 IMPRESSION: Multilevel lumbar spine degenerative changes as detailed, without high-grade canal narrowing. Mild to moderate canal narrowing at L1-L2 and L3-L4. Moderate left foraminal narrowing at L3-L4. Additional details as above. Anatomic Lumbar Variant: None. L4-5 is considered the level of the iliac crest and assume there are 5 lumbar-type vertebrae. Geophysical Computer: JOHNATHAN Transcribe Date/Time: Oct 12 2024 8:52A Dictated by : SARA SANON MD This examination was interpreted and the report reviewed and electronically signed by: SARA SANON MD on Oct 12 2024 8:59AM [facility] DIVISION OF RADIOLOGY * * *Final Report* * * DATE OF EXAM: Oct 12 2024 7:25AM [facility] 0303 - MRI LUMBAR SPINE WO IVCON / PROCEDURE REASON: Spinal stenosis of lumbar region without neurogenic claudication * * * * Physician Interpretation * * * * EXAMINATION: MRI LUMBAR SPINE WO IVCON CLINICAL HISTORY: Spinal stenosis of lumbar region without neurogenic claudication TECHNIQUE: Routine lumbosacral spine MR protocol without gadolinium. MQ: [id number] COMPARISON: None. RESULT: Counting reference: Lumbosacral junction. For the purposes of this report, L4-5 is considered the level of the iliac crest and assume there are 5 lumbar-type vertebrae. Anatomic variant: None. Localizer images: Multiple lobulated T2 hyperintensities in the liver, presumably cysts, although incompletely assessed. Bilateral presumed renal cysts. Alignment: Mild dextrocurvature to the apex of the right at L3-4. Straightening of lumbar lordosis. Bone marrow signal/fracture: Prominent superior endplate most noted at T12. Small intraosseous hemangioma at T12. No evidence of pathologic marrow infiltration. No evidence of prior fracture. Conus: The conus is within normal limits of signal intensity and morphology. Paraspinal soft tissues: Paraspinal soft tissues are within normal limits. T11-12: Minimal disc bulge. Canal and foramina are patent. T12-L1: Mild disc bulge with mild canal narrowing. Bilateral facet arthropathy and ligamentous prominence. Mild right foraminal narrowing. Left foramen is patent. L1-L2: Mild diffuse disc bulge eccentric to the right. Bilateral facet arthropathy and ligamentous prominence. Mild to moderate canal narrowing. Mild bilateral foraminal narrowing. L2-L3: Mild disc bulge eccentric to the left. Bilateral facet arthropathy and ligamentous prominence. Mild canal narrowing. Left subarticular recess effacement. Mild left foraminal narrowing. Right foramen is patent. L3-L4: Mild disc bulge with superimposed small left subarticular protrusion and annular fissure. Left subarticular recess effacement with trace contact of the traversing nerve roots. Bilateral facet arthropathy and ligamentous prominence. Mild to moderate canal narrowing. Bilateral subarticular recess effacement. Moderate left and ssdn-iv-kqyirlnh right foraminal narrowing. L4-L5: Mild disc bulge. Bilateral facet arthropathy and ligamentous prominence. Bilateral subarticular recess effacement. Mild canal narrowing. Mild to moderate bilateral foraminal narrowing. L5-S1: Mild disc bulge. Small right central annular fissure. Bilateral facet arthropathy. Canal is patent. Aplp-if-rryumwat right foraminal narrowing. Left foramen is patent. Sacrum and iliac wings: The visualized sacrum and iliac wings are within normal limits. DIVISION OF RADIOLOGY Provider, [facility] - 10/12/2024 * * *Final Report* * * DATE OF EXAM: Oct 12 2024 7:25AM [facility] 0303 - MRI LUMBAR SPINE WO IVCON / PROCEDURE REASON: Spinal stenosis of lumbar region without neurogenic claudication * * * * Physician Interpretation * * * * EXAMINATION: MRI LUMBAR SPINE WO IVCON CLINICAL HISTORY: Spinal stenosis of lumbar region without neurogenic claudication TECHNIQUE: Routine lumbosacral spine MR protocol without gadolinium. MQ: [id number]_[id number] COMPARISON: None. RESULT: Counting reference: Lumbosacral junction. For the purposes of this report, L4-5 is considered the level of the iliac crest and assume there are 5 lumbar-type vertebrae. Anatomic variant: None. Localizer images: Multiple lobulated T2 hyperintensities in the liver, presumably cysts, although incompletely assessed. Bilateral presumed renal cysts. Alignment: Mild dextrocurvature to the apex of the right at L3-4. Straightening of lumbar lordosis. Bone marrow signal/fracture: Prominent superior endplate most noted at T12. Small intraosseous hemangioma at T12. No evidence of pathologic marrow infiltration. No evidence of prior fracture. Conus: The conus is within normal limits of signal intensity and morphology. Paraspinal soft tissues: Paraspinal soft tissues are within normal limits. T11-12: Minimal disc bulge. Canal and foramina are patent. T12-L1: Mild disc bulge with mild canal narrowing. Bilateral facet arthropathy and ligamentous prominence. Mild right foraminal narrowing. Left foramen is patent. L1-L2: Mild diffuse disc bulge eccentric to the right. Bilateral facet arthropathy and ligamentous prominence. Mild to moderate canal narrowing. Mild bilateral foraminal narrowing. L2-L3: Mild disc bulge eccentric to the left. Bilateral facet arthropathy and ligamentous prominence. Mild canal narrowing. Left subarticular recess effacement. Mild left foraminal narrowing. Right foramen is patent. L3-L4: Mild disc bulge with superimposed small left subarticular protrusion and annular fissure. Left subarticular recess effacement with trace contact of the traversing nerve roots. Bilateral facet arthropathy and ligamentous prominence. Mild to moderate canal narrowing. Bilateral subarticular recess effacement. Moderate left and ytif-fz-sveocglu right foraminal narrowing. L4-L5: Mild disc bulge. Bilateral facet arthropathy and ligamentous prominence. Bilateral subarticular recess effacement. Mild canal narrowing. Mild to moderate bilateral foraminal narrowing. L5-S1: Mild disc bulge. Small right central annular fissure. Bilateral facet arthropathy. Canal is patent. Sypn-eb-ybztzkxm right foraminal narrowing. Left foramen is patent. Sacrum and iliac wings: The visualized sacrum and iliac wings are within normal limits. IMPRESSION IMPRESSION: Multilevel lumbar spine degenerative changes as detailed, without high-grade canal narrowing. Mild to moderate canal narrowing at L1-L2 and L3-L4. Moderate left foraminal narrowing at L3-L4. Additional details as above. Anatomic Lumbar Variant: None. L4-5 is considered the level of the iliac crest and assume there are 5 lumbar-type vertebrae. Geophysical Computer: PSCB Transcribe Date/Time: Oct 12 2024 8:52A Dictated by : SARA SANON MD This examination was interpreted and the report reviewed and electronically signed by: SARA SANON MD on Oct 12 2024 8:59AM EST [facility] Radiology Study observation (narrative) [facility] MR Lumbar spine WO contrastO rdered By: [facility] Provider on 10-12-2024 [facility] MRI LUMBAR SPINE WO IVCONon 10-12-2024 MRI LUMBAR SPINE WO IVCON * * *Final Report* * * DATE OF EXAM: Oct 12 2024 7:25AM [facility] 0303 - MRI LUMBAR SPINE WO IVCON / PROCEDURE REASON: Spinal stenosis of lumbar region without neurogenic claudication * * * * Physician Interpretation * * * * EXAMINATION: MRI LUMBAR SPINE WO IVCON CLINICAL HISTORY: Spinal stenosis of lumbar region without neurogenic claudication TECHNIQUE: Routine lumbosacral spine MR protocol without gadolinium. MQ: [email or web address]_[id number] COMPARISON: None. RESULT: Counting reference: Lumbosacral junction. For the purposes of this report, L4-5 is considered the level of the iliac crest and assume there are 5 lumbar-type vertebrae. Anatomic variant: None. Localizer images: Multiple lobulated T2 hyperintensities in the liver, presumably cysts, although incompletely assessed. Bilateral presumed renal cysts. Alignment: Mild dextrocurvature to the apex of the right at L3-4. Straightening of lumbar lordosis. Bone marrow signal/fracture: Prominent superior endplate most noted at T12. Small intraosseous hemangioma at T12. No evidence of pathologic marrow infiltration. No evidence of prior fracture. Conus: The conus is within normal limits of signal intensity and morphology. Paraspinal soft tissues: Paraspinal soft tissues are within normal limits. T11-12: Minimal disc bulge. Canal and foramina are patent. T12-L1: Mild disc bulge with mild canal narrowing. Bilateral facet arthropathy and ligamentous prominence. Mild right foraminal narrowing. Left foramen is patent. L1-L2: Mild diffuse disc bulge eccentric to the right. Bilateral facet arthropathy and ligamentous prominence. Mild to moderate canal narrowing. Mild bilateral foraminal narrowing. L2-L3: Mild disc bulge eccentric to the left. Bilateral facet arthropathy and ligamentous prominence. Mild canal narrowing. Left subarticular recess effacement. Mild left foraminal narrowing. Right foramen is patent. L3-L4: Mild disc bulge with superimposed small left subarticular protrusion and annular fissure. Left subarticular recess effacement with trace contact of the traversing nerve roots. Bilateral facet arthropathy and ligamentous prominence. Mild to moderate canal narrowing. Bilateral subarticular recess effacement. Moderate left and nnjz-cz-fgumoivb right foraminal narrowing. L4-L5: Mild disc bulge. Bilateral facet arthropathy and ligamentous prominence. Bilateral subarticular recess effacement. Mild canal narrowing. Mild to moderate bilateral foraminal narrowing. L5-S1: Mild disc bulge. Small right central annular fissure. Bilateral facet arthropathy. Canal is patent. Pqgc-vx-ijhcndxh right foraminal narrowing. Left foramen is patent. Sacrum and iliac wings: The visualized sacrum and iliac wings are within normal limits. IMPRESSION: Multilevel lumbar spine degenerative changes as detailed, without high-grade canal narrowing. Mild to moderate canal narrowing at L1-L2 and L3-L4. Moderate left foraminal narrowing at L3-L4. Additional details as above. Anatomic Lumbar Variant: None. L4-5 is considered the level of the iliac crest and assume there are 5 lumbar-type vertebrae. Geophysical Computer: JOHNATHAN Transcribe Date/Time: Oct 12 2024 8:52A Dictated by : SARA SANON MD This examination was interpreted and the report reviewed and electronically signed by: SARA SANON MD on Oct 12 2024 8:59AM EST [id number] Normal [facility] EMG(NEURO/NI)on 10-07-2024 Results can be seen in attached scanned documents. If you are a patient reviewing this test result, call the doctor who ordered the test with any questions. [facility] MONOCLONAL PROT 24 UR W/INTE RPon 10-07-2024 INTERPRETATION (PA) Poorly defined reg ion of restricted mobility in IgG and kappa lanes. Pattern is less well defined or fainter than typically seen in monoclonal gammopathy. This could represent either an atypical presentation of polyclonal immunoglobulins or the presence of a low level IgG kappa monoclonal gammopathy. If clinically indicated, serum monoclonal protein analysis and serum free light chain measurements are recommended to evaluate further for monoclonal gammopathy. Clinical correlation is necessary. Normal [facility] Comment on above: Order Comment: Speci men Type: BLOOD SPECIMEN Ordering Facility: [facility] Address: [address] [place] [address] Performed By: #### L [id number] #### [facility] CLIA [id number] [address] [place] [address] [place] STAFF REVIEW ([place]) Reviewed by Nola Mcclellan MD Normal [facility] Comment on above: Order Comment: Speci men Type: BLOOD SPECIMEN Ordering Facility: [facility] Address: [address] [place] [address] Performed By: #### L [id number] #### [facility] CLIA [id number] [address] [place] [address] [place] UMPA RESULT A poorly defined region of restricted mobility is present that may represent an M protein. Abnormal No M protein is identified. [facility] Comment on above: Order Comment: Speci men Type: BLOOD SPECIMEN Ordering Facility: [facility] Address: [address] [place] [address] Performed By: #### L [id number] #### [facility] CLIA [id number] [address] [place] [address] [place] PROT ELEC UR 24HR W/M SPIKE (P)on 10-07-2024 Albumin/Globulin Elph (24H U) [Mass ratio] 44.72 % Normal [facility] Comment on above: Order Comment: Speci men Type: URINE SPECIMEN Ordering Facility: [facility] Address: [address] [place] [address] Performed By: #### L [id number] #### [facility] CLIA [id number] [address] [place] [address] [place] Alpha 1 globulin Elph (24H U) [Mass fraction] 5.63 % Normal [facility] Comment on above: Order Comment: Speci men Type: URINE SPECIMEN Ordering Facility: [facility] Address: [address] [place] [address] Performed By: #### L [id number] #### [facility] CLIA [id number] [address] [place] [address] [place] Alpha 2 globulin Elph (24H U) [Mass fraction] 11.84 % Normal [facility] Comment on above: Order Comment: Speci men Type: URINE SPECIMEN Ordering Facility: [facility] Address: [address] [place] [address] Performed By: #### L [id number] #### [facility] CLIA [id number] [address] [place] [address] [place] Beta globulin Elph (24H U) [Mass fraction] 23.80 % Normal [facility] Comment on above: Order Comment: Speci men Type: URINE SPECIMEN Ordering Facility: [facility] Address: [address] [place] [address] Performed By: #### L [id number] #### [facility] CLIA [id number] [address] [place] [address] [place] Gamma globulin Elph (24H U) [Mass fraction] 14.01 % Normal [facility] Comment on above: Order Comment: Speci men Type: URINE SPECIMEN Ordering Facility: [facility] Address: [address] [place] [address] Performed By: #### L [id number] #### [facility] CLIA [id number] [address] [place] [address] [place] Protein Fractions Elph Jaya (24H U) [Interp] No definitive M protein is identified on protein electrophoresis. Normal No definitive M protein is identified on protein electrophore sis. [facility] Comment on above: Order Comment: Speci men Type: URINE SPECIMEN Ordering Facility: [facility] Address: [address] [place] [address] Performed By: #### L [id number] #### [facility] CLIA [id number] [address] [place] [address] [place] Protein.monoclonal Elph (24H U) [Mass/Time] 0.00 g/24hr Normal [facility] Comment on above: Order Comment: Speci men Type: URINE SPECIMEN Ordering Facility: [facility] Address: [address] [place] [address] Performed By: #### L [id number] #### [facility] CLIA [id number] [id number] [place] STAFF REVIEW ([id number]) Reviewed by Nola Mcclellan MD Normal [facility] Comment on above: Order Comment: Speci men Type: URINE SPECIMEN Ordering Facility: [facility] Address: [address] [place] [address] Performed By: #### L [id number] #### [facility] CLIA [id number] [address] [place] [address] [place] Prot 24h Ur-mRateon 10-08-19 25 Protein (24H U) [Mass/Time] 0.13 g/24 Hr Normal <0.15 [facility] Comment on above: Order Comment: Speci men Type: BLOOD SPECIMEN Ordering Facility: [facility] Address: [address] [place] [address] Result Comment: Adul t Proteinuria Categories: <0.15 g/24 hours is considered normal to mildly increased 0.15 - 0.50 g/24 hours is considered moderately increased >0.50 g/24 hours is considered severely increased KDIGO. (2013). KDIGO 2012 Clinical Practice Guideline for the Evaluation and Management of Chronic Kidney Disease. Official Journal of the International Society of Nephrology, 3(1), 1-150. Performed By: #### L [id number] #### [facility] CLIA [id number] [address] [place] [address] [place] Protein (24H U) [Mass/Time]o n 10-07-2024 PERIOD (HRS) 24 hr Normal [facility] Comment on above: Order Comment: Speci men Type: BLOOD SPECIMEN Ordering Facility: [facility] Address: [address] [place] [address] Performed By: #### L [id number] #### [facility] CLIA [id number] [address] [place] [address] [place] Specimen volume (24H U) 2.125 L Normal [facility] Comment on above: Order Comment: Speci men Type: BLOOD SPECIMEN Ordering Facility: [facility] Address: [address] [place], [place] [address] Performed By: #### L [id number] #### [facility] CLIA [id number] [address] [place] [id number] [place], [place] [id number] [facility] [place] CNNURSEon 10-05-2024 CNNURSE Nurse Visit (FAMPWS) LUPIS BRITO ([id number]) 1950 F Date Time Provider Department 10/05/24 2:15 PM [place] [facility] During your visit today, we recorded the following information about you: SUSANNE WEST 10/05/2024 2:22 PM Signed Patient presents for Prolia injection. Denies any problems at this time. Brought own medication. Patient instructed on any SE of medication, verbalized understanding and agreed to proceed with treatment. Tolerated injection well. Susanne West LPN Referring Provider: TACOS HEIN [[id number]] Allergies As of Date: 10/05/2024 Noted Allergy Reaction CLINDAMYCIN 02/21/2023 2 - Rash BONIVA (IBANDRONATE) 07/09/2022 8 - GI Upset Comments: Increase in GERD DOXYCYCLINE 02/01/2024 14 - Other: See Comments Comments: Accelerated heart rate FOSAMAX (ALENDRONATE) 07/09/2022 8 - GI Upset Comments: Increase heartburn/GI MOLD 02/09/2019 14 - Other: See Comments Comments: Nasal/sinus PENICILLINS 08/20/2004 16 - Unknown POLLEN EXTRACTS 02/09/2019 14 - Other: See Comments Comments: Nasal/sinus SULFA (SULFONAMIDE ANTIBIOTICS) 08/20/2004 16 - Unknown Date Reviewed: 10/04/2024 Reviewed by: Cody Julian DO - Fully Assessed Reason for Visit: Imm/Inj [58] Primary Visit Diagnosis:Osteoporosi s, unspecified osteoporosis type, unspecified pathological fracture presence [M81.0] Prescriptions as of 10/05/2024 - QVAR REDIHALER 40 mcg/actuation inhaler Inhale 2 Puffs as instructed two times a day. - gabapentin (NEURONTIN) 300 mg capsule Take 1 capsule by mouth two times a day for 180 days. - RESTASIS 0.05 % ophthalmic emulsion Use 1 Drop in both eyes two times a day. - meloxicam (MOBIC) 7.5 mg tablet Take 1 tablet by mouth once daily. - montelukast (SINGULAIR) 10 mg tablet Take 1 tablet by mouth daily at bedtime. - fluticasone (FLONASE) 50 mcg/actuation nasal spray instill 2 sprays into each nostril once daily - calcium carbonate (CALCIUM 300 ORAL) Take 1 tablet by mouth once daily. - albuterol HFA (VENTOLIN HFA) 90 mcg/actuation inhaler Inhale 2 Puffs as instructed every 4 hours as needed for wheezing/shortness of breath. - MELATONIN ORAL Take 10 mg by mouth at bedtime as needed. - VITAMIN B COMPLEX ORAL Take by mouth. - L.ACID/L.CASEI/B.BIF/ B.ROBIN/FOS (PROBIOTIC BLEND ORAL) Take 1 tablet by mouth once daily. - folic acid 800 mcg ORAL Tab Take one(1) tablet daily. - DAILY MULTIVITAMIN TAB Take one(1) tablet daily. Facility-Administered Medications as of 10/05/2024 - denosumab 60 mg injection (PROLIA) Problem List As Of Date 10/05/2024 Noted Resolved BURSITIS NEC [M71.50] 08/20/2004 10/18/2004 Acute gastritis without mention of hemorrhage [*01/03/2008 01/01/2015 Osteoporosis [M81.0] 12/10/2009 Vitamin D deficiency [E55.9] 12/12/2009 Restless leg syndrome [G25.81] 03/25/2010 Lumbar degenerative disc disease [M51.369] 12/16/2010 Postmenopausal atrophic vaginitis [N95.2] 11/03/2012 Intrinsic asthma [J45.909] 10/31/2014 12/01/2023 Insomnia [G47.00] 03/26/2015 Inflammatory arthritis [M19.90] 03/26/2015 Psoriasis of nail [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] 03/26/2015 Arthritis of both hips [M16.0] 08/23/2015 Fibromyalgia [M79.7] 08/23/2015 Spinal stenosis of lumbar region with radiculop*10/09/2016 Screening for colon cancer [Z12.11] 01/21/2021 Medication management [Z79.899] 01/21/2021 Dyslipidemia [E78.5] 01/22/2021 Medicare annual wellness visit, subsequent [Z00*08/14/[address] [Z78.9] 08/15/2022 Advance directive discussed with patient [Z71.8*08/15/2022 Mild intermittent asthma without complication [*12/01/2023 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 HPI: The patient is a 74-year-old female with a past medical history as outlined below. Protein electrophoresis was ordered to workup symptoms of peripheral neuropathy. EMG testing at [facility] suggested left and right peroneal neuropathy with evidence of a mild conduction block at the fibular head bilaterally. There was no electrodiagnostic evidence of peripheral polyneuropathy or lumbosacral radiculopathy. Trace proteinuria on urinalysis 08/12/2024. CBC and chemistry panels in July 2024 were unremarkable. Fatigued, but active. Walks her dog. Goes to [employer]. Occasional dizziness. Intermittent dull FISHER. Describes the neuropathy as numbness of the soles of the feet and the toes. Toes are very sensitive at night when the sheet is on them. She does not have any balance problems. No strength problems. Occasionally the pain will radiate up to the knee on the left more laterally not so much on the right. PAST MEDICAL HISTORY Diagnosis Date Acute gastritis [...] 12/12/2009 PAST SURGICAL HISTORY Procedure Laterality Date BACK SURGERY HX SECTION HX 09/27/1980 COLSC FLX W/RMVL OF TUMOR POLYP LESION SNARE TQ 01/03/2008 Repeat in EGD TRANSORAL BIOPSY SINGLE/MULTIPLE 01/03/2008 EXC LESION TDN SHTH/JT CAPSL HAND/FNGR Right 04/10/2022 Excision ganglion cyst right 5th finger PAST SURGICAL HISTORY OF 07/27/1979 deviated septum QVAR REDIHALER 40 mcg/actuation inhalerInhale 2 Puffs as instructed two times a day.Disp: Rfl: gabapentin (NEURONTIN) 300 mg capsuleTake 1 capsule by mouth two times a day for 180 days.Disp: 180 capsuleRfl: 1 RESTASIS 0.05 % ophthalmic emulsionUse 1 Drop in both eyes two times a day.Disp: Rfl: meloxicam (MOBIC) 7.5 mg tabletTake 1 tablet by mouth once daily.Disp: 90 tabletRfl: 1 montelukast (SINGULAIR) 10 mg tabletTake 1 tablet by mouth daily at bedtime.Disp: 90 tabletRfl: 1 fluticasone (FLONASE) 50 mcg/actuation nasal sprayinstill 2 sprays into each nostril once dailyDisp: 3 EachRfl: 3 calcium carbonate (CALCIUM 300 ORAL)Take 1 tablet by mouth once daily.Disp: Rfl: albuterol HFA (VENTOLIN HFA) 90 mcg/actuation inhalerInhale 2 Puffs as instructed every 4 hours as needed for wheezing/shortness of breath.Disp: 3 EachRfl: 2 MELATONIN ORALTake 10 mg by mouth at bedtime as needed.Disp: Rfl: L.ACID/L.CASEI/B.BIF/ B.ROBIN/FOS (PROBIOTIC BLEND ORAL)Take 1 tablet by mouth once daily.Disp: Rfl: folic acid 800 mcg ORAL TabTake one(1) tablet daily.Disp: Rfl: 0 DAILY MULTIVITAMIN TABTake one(1) tablet daily.Disp: Rfl: 0 VITAMIN B COMPLEX ORALTake by mouth.Disp: Rfl: ALLERGIES Allergen Reactions Clindamycin Rash Boniva [Ibandronate] GI Upset Increase in GERD Doxycycline Other: See Comments Accelerated heart rate Fosamax [Alendronat* GI Upset Increase heartburn/GI Mold Other: See Comments Nasal/sinus Penicillins Unknown Pollen Extracts Other: See Comments Nasal/sinus Sulfa (Sulfonamide * Unknown Social History Tobacco Use Smoking status: Never Smokeless tobacco: Never Vaping Use Vaping status: Never Used Substance Use Topics Alcohol use: Yes Comment: occasionally Drug use: No FAMILY HISTORY Problem Relation Age of Onset Hypertension Mother Lipids Mother Skin Cancer Mother chemo and radiation Heart Father irregular heart beat. Skin Cancer Sister Asthma No Family History Coronary Artery Disease No Family History REVIEW OF SYSTEMS: Constitutional: No episodes of fever and night sweats. Not significantly fatigued. Normal appetite. (more content not included)... Normal [facility] IMMUNOFIXATION SCREEN, SERUM on 10-04-2024 MPA RESULT No M protein is identified. Normal No M protein is identified. [facility] Comment on above: Order Comment: Speci men Type: BLOOD SPECIMEN Ordering Facility: [facility] Address: [address] [place] [address] [place] [address] Performed By: #### L [id number] #### [facility] CLIA [id number] [address] [place] [address] [place] STAFF REVIEW (MPA) Reviewed by Christine Glez M.D., Ph.D Normal [facility] Comment on above: Order Comment: Speci men Type: BLOOD SPECIMEN Ordering Facility: [facility] Address: [address] [place] [address] Performed By: #### L [id number] #### [facility] CLIA [id number] [address] [place] [address] [place] IMMUNOGLOBULINS,IGG,IGA,IGMo n 10-04-2024 IgA [Mass/Vol] 367 mg/dL Normal 70-400 [facility] Comment on above: Order Comment: Speci men Type: BLOOD SPECIMEN Ordering Facility: [facility] Address: [address] [place] [address] Performed By: #### L [id number] #### [facility] CLIA [id number] [address] [place] [address] [place] IgG [Mass/Vol] 1696 mg/dL High 700-1600 [facility] Comment on above: Order Comment: Speci men Type: BLOOD SPECIMEN Ordering Facility: [facility] Address: [address] [place] [address] Performed By: #### L [id number] #### [facility] CLIA [id number] [address] [place] [address] [place] IgM [Mass/Vol] 94 mg/dL Normal 40-230 [facility] Comment on above: Order Comment: Speci men Type: BLOOD SPECIMEN Ordering Facility: [facility] Address: [address] [place] [address] Performed By: #### L [id number] #### [facility] CLIA [id number] [address] [place] [address] [place] KAPPA/MARSHALL,FREE,SERon 2024 Immunoglobulin light chains.kappa.free (S) [Mass/Vol] 22.4 mg/L High 3.3-19.4 [facility] Comment on above: Order Comment: Speci men Type: BLOOD SPECIMEN Ordering Facility: [facility] Address: [address] [place] [address] Result Comment: Rare ly, increased serum free light chains levels may not be detected or accurately quantified due to prozone phenomenon or in high viscosity samples using this immunoturbidimetric assay. Correlation with other laboratory results and clinical findings is recommended. The Doctor Phillips Free Light Chain was performed using the Binding Site Optilite immunoturbidimetric method. Result obtained with different assay methods or kits cannot be used interchangeably. Performed By: #### K LFRS #### [facility] CLIA [id number] [address] [place] [address] [place] Immunoglobulin light chains.kappa/Immunoglo bulin light chains.lambda (S) [Mass ratio] 1.38 Normal 0.26-1.65 [facility] Comment on above: Order Comment: Leonori ricardo Type: BLOOD SPECIMEN Ordering Facility: [facility] Address: [address] [place] [address] Performed By: #### K LFRS #### [facility] CLIA [id number] [address] [place] [address] [place] Immunoglobulin light chains.lambda.free [Mass/Vol] 16.2 mg/L Normal 5.7-26.3 [facility] Comment on above: Order Comment: Speci ricardo Type: BLOOD SPECIMEN Ordering Facility: [facility] Address: [address] [place] [address] Result Comment: Rare ly, increased serum free light chains levels may not be detected or accurately quantified due to prozone phenomenon or in high viscosity samples using this immunoturbidimetric assay. Correlation with other laboratory results and clinical findings is recommended. The Lambda Free Light Chain was performed using the Binding Site Optilite immunoturbidimetric method. Result obtained with different assay methods or kits cannot be used interchangeably. Performed By: #### K LFRS #### [facility] CLIA [id number] [address] [place] [address] [place] PROTEIN ELECTROPHORESIS SERU M (P)on 10-04-2024 Albumin [Mass/Vol] 4.41 g/dL Normal 3.43-5.41 [facility] Comment on above: Order Comment: Speci men Type: BLOOD SPECIMEN Ordering Facility: [facility] Address: [address] [place] [address] Performed By: #### L [id number] #### [facility] CLIA [id number] [address] [place] [address] [place] Alpha 1 globulin Elph [Mass/Vol] 0.33 g/dL Normal 0.18-0.43 [facility] Comment on above: Order Comment: Speci men Type: BLOOD SPECIMEN Ordering Facility: [facility] Address: [address] [place] [address] Performed By: #### L [id number] #### [facility] CLIA [id number] [address] [place] [address] [place] Alpha 2 globulin Elph [Mass/Vol] 0.68 g/dL Normal 0.42-0.98 [facility] Comment on above: Order Comment: Speci men Type: BLOOD SPECIMEN Ordering Facility: [facility] Address: [address] [place] [address] Performed By: #### L [id number] #### [facility] CLIA [id number] [address] [place] [address] [place] Beta globulin Elph [Mass/Vol] 0.99 g/dL Normal 0.61-1.17 [facility] Comment on above: Order Comment: Speci men Type: BLOOD SPECIMEN Ordering Facility: [facility] Address: [address] [place] [address] Performed By: #### L [id number] #### [facility] CLIA [id number] [address] [place] [address] [place] Gamma globulin Elph [Mass/Vol] 1.59 g/dL High 0.53-1.51 [facility] Comment on above: Order Comment: Speci men Type: BLOOD SPECIMEN Ordering Facility: [facility] Address: [address] [place] [address] Performed By: #### L [id number] #### [facility] CLIA [id number] [address] [place] [address] [place] INTERPRETATION COMMENT FOR PROTEIN ELECTROPHORESIS The atypical region did not stain on accompanying immunofixation and therefore is unlikely to be a monoclonal immunoglobulin. Normal [facility] Comment on above: Order Comment: Speci men Type: BLOOD SPECIMEN Ordering Facility: [facility] Address: [address] [place] [address] Performed By: #### L [id number] #### [facility] CLIA [id number] [address] [place] [address] [place] M-PROTEIN LOCATION Normal [facility] Comment on above: Order Comment: Speci men Type: BLOOD SPECIMEN Ordering Facility: [facility] Address: [address] [place] [address] Result Comment: Not Applicable. Performed By: #### L [id number] #### [facility] CLIA [id number] [address] [place] [address] [place] Protein Fractions [Interp] An atypical region of restricted mobility is identified on protein electrophoresis. Abnormal No definitive M protein is identified on protein electrophore sis. [facility] Comment on above: Order Comment: Speci men Type: BLOOD SPECIMEN Ordering Facility: [facility] Address: [address] [place] [address] Performed By: #### L [id number] #### [facility] CLIA [id number] [address] [place] [address] [place] Protein.monoclonal Elph [Mass/Vol] 0.00 g/dL Normal <=0.00 [facility] Comment on above: Order Comment: Speci men Type: BLOOD SPECIMEN Ordering Facility: [facility] Address: [address] [place] [address] Performed By: #### L [id number] #### [facility] CLIA [id number] [address] [place] [address] [place] SPE STAFF REVIEW Reviewed by Nola Mcclellan MD Normal [facility] Comment on above: Order Comment: Speci men Type: BLOOD SPECIMEN Ordering Facility: [facility] Address: [address] [place] [address] Performed By: #### L [id number] #### [facility] CLIA [id number] [address] [place] [address] [place] Prot SerPl-mCncon 10-04-2024 Protein [Mass/Vol] 8.0 g/dL Normal 6.3-8.0 [facility] Comment on above: Order Comment: Speci men Type: BLOOD SPECIMEN Ordering Facility: [facility] Address: [address] [place] [address] Performed By: #### L [id number] #### [facility] CLIA [id number] [address] [place] [address] [place] CNPKadni 09-22-2024 [facility] LUPIS BRITO ([id number]) 1950 F Date Time Provider Department 09/22/24 [facility] During your visit today, we recorded the following information about you: SUSANNE WEST 09/22/2024 1:29 PM Signed Patient scheduled for nurse visit 09/1224 to receive Prolia injection. Please place order at this time. 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 Allergies As of Date: 09/22/2024 Noted Allergy Reaction CLINDAMYCIN 02/21/2023 2 - Rash BONIVA (IBANDRONATE) 07/09/2022 8 - GI Upset Comments: Increase in GERD DOXYCYCLINE 02/01/2024 14 - Other: See Comments Comments: Accelerated heart rate FOSAMAX (ALENDRONATE) 07/09/2022 8 - GI Upset Comments: Increase heartburn/GI MOLD 02/09/2019 14 - Other: See Comments Comments: Nasal/sinus PENICILLINS 08/20/2004 16 - Unknown POLLEN EXTRACTS 02/09/2019 14 - Other: See Comments Comments: Nasal/sinus SULFA (SULFONAMIDE ANTIBIOTICS) 08/20/2004 16 - Unknown Date Reviewed: 09/13/2024 Reviewed by: Rody Pablo PA-C - Fully Assessed Reason for Visit: Orders [681] Primary Visit Diagnosis:Osteoporosi s, unspecified osteoporosis type, unspecified pathological fracture presence [M81.0] Order(s):[START ON 10/05/2024] denosumab 60 mg injection (PROLIA)Disp: Rfl: Prescriptions as of 09/22/2024 - RESTASIS 0.05 % ophthalmic emulsion Use 1 Drop in both eyes every 12 hours. - gabapentin (NEURONTIN) 300 mg capsule Take 1 capsule by mouth two times a day for 180 days. - meloxicam (MOBIC) 7.5 mg tablet Take 1 tablet by mouth once daily. - montelukast (SINGULAIR) 10 mg tablet Take 1 tablet by mouth daily at bedtime. - fluticasone (FLONASE) 50 mcg/actuation nasal spray instill 2 sprays into each nostril once daily - calcium carbonate (CALCIUM 300 ORAL) Take by mouth once daily. - albuterol HFA (VENTOLIN HFA) 90 mcg/actuation inhaler Inhale 2 Puffs as instructed every 4 hours as needed for wheezing/shortness of breath. - MELATONIN ORAL Take by mouth as directed. - VITAMIN B COMPLEX ORAL Take by mouth. - L.ACID/L.CASEI/B.BIF/ B.ROBIN/FOS (PROBIOTIC BLEND ORAL) Take by mouth. - folic acid 800 mcg ORAL Tab Take one(1) tablet daily. - DAILY MULTIVITAMIN TAB Take one(1) tablet daily. Facility-Administered Medications as of 09/22/2024 - denosumab 60 mg injection (PROLIA) Problem List As Of Date 09/22/2024 Noted Resolved BURSITIS NEC [M71.50] 08/20/2004 10/18/2004 Acute gastritis without mention of hemorrhage [*01/03/2008 01/01/2015 Osteoporosis [M81.0] 12/10/2009 Vitamin D deficiency [E55.9] 12/12/2009 Restless leg syndrome [G25.81] 03/25/2010 Lumbar degenerative disc disease [M51.369] 12/16/2010 Postmenopausal atrophic vaginitis [N95.2] 11/03/2012 Intrinsic asthma [J45.909] 10/31/2014 12/01/2023 Insomnia [G47.00] 03/26/2015 Inflammatory arthritis [M19.90] 03/26/2015 Psoriasis of nail [L40.9] 03/26/2015 Arthritis of both hips [M16.0] 08/23/2015 Fibromyalgia [M79.7] 08/23/2015 Spinal stenosis of lumbar region with radiculop*10/09/2016 Screening for colon cancer [Z12.11] 01/21/2021 Medication management [Z79.899] 01/21/2021 Dyslipidemia [E78.5] 01/22/2021 Medicare annual wellness visit, subsequent [Z00*08/14/[address] [Z78.9] 08/15/2022 Advance directive discussed with patient [Z71.8*08/15/2022 Mild intermittent asthma without complication [*12/01/2023 Peroneal neuropathy [G57.30] 09/01/2024 Prescriptions ordered this encounter Disp Refills Start End DENOSUMAB 60 MG/ML SUBCUTANEOUS SYRI* 10/05/2024 09/29/2025 Route: SUBCUTANEOUS Medications Discontinued During This Encounter Prescriptions - denosumab (PROLIA) 60 mg/mL (Discontinued) 1 milliliter subcutaneously every 6 months. Encounter Status:Closed by TACOS HEIN on 09/22/24 [facility] Sai 09-20-2024 SHAWN Telephone (NIQ) ESME BRITOELA Sandoval ([id number]) 1950 F Date Time Provider Department 09/20/24 RODY PABLO During your visit today, we recorded the following information about you: tanner Priscila Spears 09/20/2024 9:22 AM Signed Patient is calling requesting a return call to discuss lab results, and why would EMG need repeated. Rody Pablo PA-C 09/23/2024 9:43 AM Signed Patient does have an elevated B6 level and this can contribute to numbness, tingling and nerve damage. Would recommend stopping this supplement. Additionally, one of your labs M protein is a little elevated. This is a protein marker in the blood. This result can be an insignificant finding. We check this as a potential cause of your neuropathy. Would recommend seeing hematology to see if further evaluation is needed. Regarding EMG, would recommend repeating this due to the protocols done at the [facility] and reports at [facility] do not include the specific measurements in the report so this makes it difficult to interpret the results. PHUONG Meyer Samaria, LPN 09/23/2024 10:05 AM Signed Called patient, no answer. [facility] sent mychart. Saba Cruz LPN September 23, 2024 10:05 AM Allergies As of Date: 09/20/2024 Noted Allergy Reaction CLINDAMYCIN 02/21/2023 2 - Rash BONIVA (IBANDRONATE) 07/09/2022 8 - GI Upset Comments: Increase in GERD DOXYCYCLINE 02/01/2024 14 - Other: See Comments Comments: Accelerated heart rate FOSAMAX (ALENDRONATE) 07/09/2022 8 - GI Upset Comments: Increase heartburn/GI MOLD 02/09/2019 14 - Other: See Comments Comments: Nasal/sinus PENICILLINS 08/20/2004 16 - Unknown POLLEN EXTRACTS 02/09/2019 14 - Other: See Comments Comments: Nasal/sinus SULFA (SULFONAMIDE ANTIBIOTICS) 08/20/2004 16 - Unknown Date Reviewed: 09/13/2024 Reviewed by: Rody Pablo PA-C - Fully Assessed Reason for Visit: Patient Question [3998] Primary Visit Diagnosis:Gammopathy, 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 - RESTASIS 0.05 % ophthalmic emulsion Use 1 Drop in both eyes every 12 hours. - meloxicam (MOBIC) 7.5 mg tablet Take 1 tablet by mouth once daily. - montelukast (SINGULAIR) 10 mg tablet Take 1 tablet by mouth daily at bedtime. - fluticasone (FLONASE) 50 mcg/actuation nasal spray instill 2 sprays into each nostril once daily - calcium carbonate (CALCIUM 300 ORAL) Take by mouth once daily. - albuterol HFA (VENTOLIN HFA) 90 mcg/actuation inhaler Inhale 2 Puffs as instructed every 4 hours as needed for wheezing/shortness of breath. - MELATONIN ORAL Take by mouth as directed. - VITAMIN B COMPLEX ORAL Take by mouth. - L.ACID/L.CASEI/B.BIF/ B.ROBIN/FOS (PROBIOTIC BLEND ORAL) Take by mouth. - folic acid 800 mcg ORAL Tab Take one(1) tablet daily. - DAILY MULTIVITAMIN TAB Take one(1) tablet daily. Facility-Administered Medications as of 09/26/2024 - denosumab 60 mg injection (PROLIA) Problem List As Of Date 09/20/2024 Noted Resolved BURSITIS NEC [M71.50] 08/20/2004 10/18/2004 Acute gastritis without mention of hemorrhage [*01/03/2008 01/01/2015 Osteoporosis [M81.0] 12/10/2009 Vitamin D deficiency [E55.9] 12/12/2009 Restless leg syndrome [G25.81] 03/25/2010 Lumbar degenerative disc disease [M51.369] 12/16/2010 Postmenopausal atrophic vaginitis [N95.2] 11/03/2012 Intrinsic asthma [J45.909] 10/31/2014 12/01/2023 Insomnia [G47.00] 03/26/2015 Inflammatory arthritis [M19.90] 03/26/2015 Psoriasis of nail [L40.9] 03/26/2015 Arthritis of both hips [M16.0] 08/23/2015 Fibromyalgia [M79.7] 08/23/2015 Spinal stenosis of lumbar region with radiculop*10/09/2016 Screening for colon cancer [Z12.11] 01/21/2021 Medication management [Z79.899] 01/21/2021 Dyslipidemia [E78.5] 01/22/2021 Medicare annual wellness visit, subsequent [Z00*08/14/[address] [Z78.9] 08/15/2022 Advance directive discussed with patient [Z71.8*08/15/2022 Mild intermittent asthma without complication [*12/01/2023 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 - Return Path C [id number] Date Scanned: 09/19/2024 11:55 AM CLINICAL HISTORY: DIAGNOSTIC Osteoporosis, unspecified osteoporosis type, unspecified pathological fracture presence . RISK FACTORS FOR OSTEOPOROSIS AND ASSOCIATED FRACTURES REPORTED BY THIS PATIENT: Please refer to Bone Health Questionnaire in the EMR CURRENT THERAPY: Please refer to Bone Health Questionnaire in the EMR RESULTS: Lumbar spine (L1, L2, L3, L4): 0.981 g/cm2, T-score -0.6, Z-score 1.7 Lumbar spine: 2021: 0.865 g/cm2 Statistically significant increase Right Femoral Neck: 0.502 g/cm2, T-score -3.1, Z-score -1.2 Right Femoral Neck: 2021: 0.502 g/cm2 No statistically significant change Right Total Hip: 0.694 g/cm2, T-score -2.0, Z-score -0.4 Right Total Hip: 2021: 0.674 g/cm2 No statistically significant change Left Femoral Neck: 0.519 g/cm2, T-score -3.0, Z-score -1.0 Left Femoral Neck: 2021: 0.495 g/cm2 No statistically significant change Left Total Hip: 0.678 g/cm2, T-score -2.2, Z-score -0.5 Left Total Hip: 2021: 0.719 g/cm2 Statistically significant decrease CHANGE IS STATISTICALLY SIGNIFICANT IN THE SPINE OR HIP IF GREATER THAN OR EQUAL TO 0.04 g/cm2 VERTEBRAL FRACTURE ASSESSMENT Not performed. TRABECULAR BONE ASSESSMENT TBS score: 1.294 Bone micro-architecture: Partially degraded (1.231 - 1.310) IMPRESSION: THE LOWEST T-SCORE IS -3.1 IN THE RIGHT HIP 1) DIAGNOSIS (based on BMD alone): OSTEOPOROSIS Caution: Medical conditions other than osteoporosis may cause low bone density, such as osteomalacia or renal osteodystrophy. Clinical correlation is necessary. 2) FRACTURE RISK (Based on TBS adjusted FRAX): 10-year absolute fracture risk: - major osteoporotic fracture = 18 % - hip fracture = 6.8 % - A diagnosis of Osteoporosis, a 10 year probability of hip fracture greater than or equal to 3% or a 10 year probability of any major osteoporosis-related fracture greater than or equal to 20% should be considered for treatment. - DXA scanner generated FRAX calculations may slightly differ from online FRAX calculations due to differences in software versions. - All recommendations and calculations are to be considered as guidelines and should not replace sound clinical judgement - Caution: Fracture risk may be increased independent of BMD in patients with corticosteroid use, age greater than 65 years, or a history of prior fragility fracture. RECOMMENDATIONS: Follow-up in 2 years or as clinically indicated. Patients that are taking corticosteroids, are transplant recipients or have hyperparathyroidism should have annual follow-up. Follow-up scans should always be done on the same machine for accurate comparison. FOR MORE INFORMATION ABOUT DIAGNOSIS AND TREATMENT: [facility] Center for Osteoporosis and Metabolic Bone Disease:? [email or web address].org/arthritis /osteo National Osteoporosis Foundation:? www.nof.org International Society of Clinical Densitometry www.iscd.org Geophysical Computer: JOHNATHAN Transcribe Date/Time: Sep 19 2024 2:35P Dictated by : ALEJANDRA LAMB MD This examination was interpreted and the report reviewed and electronically signed by: ALEJANDRA LAMB MD on Sep 19 2024 2:37PM EST [id number] N -3.1 Normal [facility] BD DXA TRABECLR BONE SCORE ( TBS)on 09-19-2024 BD DXA TRABECLR BONE SCORE (TBS) * * *Final Report* * * DATE OF EXAM: Sep 19 2024 11:55AM [facility] 0801 - BD DXA TRABECLR BONE SCORE (TBS) / PROCEDURE REASON: Osteoporosis, unspecified osteoporosis type, unspecified pathological fracture p * * * * Physician Interpretation * * * * EXAMINATION: DXA BONE DENSITOMETRY BD DXA - AXIAL SKELETON, BD DXA TRABECLR BONE SCORE (TBS) PATIENT DEMOGRAPHICS: Age: 74 years, Gender: Female SCANNER INFORMATION: DXA Model: [employer] - Return Path C [id number] Date Scanned: 09/19/2024 11:55 AM CLINICAL HISTORY: DIAGNOSTIC Osteoporosis, unspecified osteoporosis type, unspecified pathological fracture presence . RISK FACTORS FOR OSTEOPOROSIS AND ASSOCIATED FRACTURES REPORTED BY THIS PATIENT: Please refer to Bone Health Questionnaire in the EMR CURRENT THERAPY: Please refer to Bone Health Questionnaire in the EMR RESULTS: Lumbar spine (L1, L2, L3, L4): 0.981 g/cm2, T-score -0.6, Z-score 1.7 Lumbar spine: 2021: 0.865 g/cm2 Statistically significant increase Right Femoral Neck: 0.502 g/cm2, T-score -3.1, Z-score -1.2 Right Femoral Neck: 2021: 0.502 g/cm2 No statistically significant change Right Total Hip: 0.694 g/cm2, T-score -2.0, Z-score -0.4 Right Total Hip: 2021: 0.674 g/cm2 No statistically significant change Left Femoral Neck: 0.519 g/cm2, T-score -3.0, Z-score -1.0 Left Femoral Neck: 2021: 0.495 g/cm2 No statistically significant change Left Total Hip: 0.678 g/cm2, T-score -2.2, Z-score -0.5 Left Total Hip: 2021: 0.719 g/cm2 Statistically significant decrease CHANGE IS STATISTICALLY SIGNIFICANT IN THE SPINE OR HIP IF GREATER THAN OR EQUAL TO 0.04 g/cm2 VERTEBRAL FRACTURE ASSESSMENT Not performed. TRABECULAR BONE ASSESSMENT TBS score: 1.294 Bone micro-architecture: Partially degraded (1.231 - 1.310) IMPRESSION: THE LOWEST T-SCORE IS -3.1 IN THE RIGHT HIP 1) DIAGNOSIS (based on BMD alone): OSTEOPOROSIS Caution: Medical conditions other than osteoporosis may cause low bone density, such as osteomalacia or renal osteodystrophy. Clinical correlation is necessary. 2) FRACTURE RISK (Based on TBS adjusted FRAX): 10-year absolute fracture risk: - major osteoporotic fracture = 18 % - hip fracture = 6.8 % - A diagnosis of Osteoporosis, a 10 year probability of hip fracture greater than or equal to 3% or a 10 year probability of any major osteoporosis-related fracture greater than or equal to 20% should be considered for treatment. - DXA scanner generated FRAX calculations may slightly differ from online FRAX calculations due to differences in software versions. - All recommendations and calculations are to be considered as guidelines and should not replace sound clinical judgement - Caution: Fracture risk may be increased independent of BMD in patients with corticosteroid use, age greater than 65 years, or a history of prior fragility fracture. RECOMMENDATIONS: Follow-up in 2 years or as clinically indicated. Patients that are taking corticosteroids, are transplant recipients or have hyperparathyroidism should have annual follow-up. Follow-up scans should always be done on the same machine for accurate comparison. FOR MORE INFORMATION ABOUT DIAGNOSIS AND TREATMENT: [facility] Center for Osteoporosis and Metabolic Bone Disease:? [email or web address].org/arthritis /osteo National Osteoporosis Foundation:? www.nof.org International Society of Clinical Densitometry www.iscd.org Geophysical Computer: JOHNATHAN Transcribe Date/Time: Sep 19 2024 2:35P Dictated by : ALEJANDRA LAMB MD This examination was interpreted and the report reviewed and electronically signed by: ALEJANDRA LAMB MD on Sep 19 2024 2:37PM EST [id number] N -3.1 Normal [facility] DXA Femur [T-score] Bone quang sadler 09-19-2024 * * *Final Report* * * DATE OF EXAM: Sep 19 2024 11:55AM [facility] 0801 - BD DXA TRABECLR BONE SCORE (TBS) / PROCEDURE REASON: Osteoporosis, unspecified osteoporosis type, unspecified pathological fracture p * * * * Physician Interpretation * * * * EXAMINATION: DXA BONE DENSITOMETRY BD DXA - AXIAL SKELETON, BD DXA TRABECLR BONE SCORE (TBS) PATIENT DEMOGRAPHICS: Age: 74 years, Gender: Female SCANNER INFORMATION: DXA Model: [employer] - Return Path C [id number] Date Scanned: 09/19/2024 11:55 AM CLINICAL HISTORY: DIAGNOSTIC Osteoporosis, unspecified osteoporosis type, unspecified pathological fracture presence . RISK FACTORS FOR OSTEOPOROSIS AND ASSOCIATED FRACTURES REPORTED BY THIS PATIENT: Please refer to Bone Health Questionnaire in the EMR CURRENT THERAPY: Please refer to Bone Health Questionnaire in the EMR RESULTS: Lumbar spine (L1, L2, L3, L4): 0.981 g/cm2, T-score -0.6, Z-score 1.7 Lumbar spine: 2021: 0.865 g/cm2 Statistically significant increase Right Femoral Neck: 0.502 g/cm2, T-score -3.1, Z-score -1.2 Right Femoral Neck: 2021: 0.502 g/cm2 No statistically significant change Right Total Hip: 0.694 g/cm2, T-score -2.0, Z-score -0.4 Right Total Hip: 2021: 0.674 g/cm2 No statistically significant change Left Femoral Neck: 0.519 g/cm2, T-score -3.0, Z-score -1.0 Left Femoral Neck: 2021: 0.495 g/cm2 No statistically significant change Left Total Hip: 0.678 g/cm2, T-score -2.2, Z-score -0.5 Left Total Hip: 2021: 0.719 g/cm2 Statistically significant decrease CHANGE IS STATISTICALLY SIGNIFICANT IN THE SPINE OR HIP IF GREATER THAN OR EQUAL TO 0.04 g/cm2 VERTEBRAL FRACTURE ASSESSMENT Not performed. TRABECULAR BONE ASSESSMENT TBS score: 1.294 Bone micro-architecture: Partially degraded (1.231 - 1.310) DIVISION [facility]OLOGY [facility] * * *Final Report* * * DATE OF EXAM: Sep 19 2024 11:55AM [facility] 0801 - DXA TRABECLR BONE SCORE (TBS) / PROCEDURE REASON: Osteoporosis, unspecified osteoporosis type, unspecified pathological fracture p * * * * Physician Interpretation * * * * EXAMINATION: DXA BONE DENSITOMETRY BD DXA - AXIAL SKELETON, BD DXA TRABECLR BONE SCORE (TBS) PATIENT DEMOGRAPHICS: Age: 74 years, Gender: Female SCANNER INFORMATION: DXA Model: [employer] - Return Path C [id number] Date Scanned: 09/19/2024 11:55 AM CLINICAL HISTORY: DIAGNOSTIC Osteoporosis, unspecified osteoporosis type, unspecified pathological fracture presence . RISK FACTORS FOR OSTEOPOROSIS AND ASSOCIATED FRACTURES REPORTED BY THIS PATIENT: Please refer to Bone Health Questionnaire in the EMR CURRENT THERAPY: Please refer to Bone Health Questionnaire in the EMR RESULTS: Lumbar spine (L1, L2, L3, L4): 0.981 g/cm2, T-score -0.6, Z-score 1.7 Lumbar spine: 2021: 0.865 g/cm2 Statistically significant increase Right Femoral Neck: 0.502 g/cm2, T-score -3.1, Z-score -1.2 Right Femoral Neck: 2021: 0.502 g/cm2 No statistically significant change Right Total Hip: 0.694 g/cm2, T-score -2.0, Z-score -0.4 Right Total Hip: 2021: 0.674 g/cm2 No statistically significant change Left Femoral Neck: 0.519 g/cm2, T-score -3.0, Z-score -1.0 Left Femoral Neck: 2021: 0.495 g/cm2 No statistically significant change Left Total Hip: 0.678 g/cm2, T-score -2.2, Z-score -0.5 Left Total Hip: 2021: 0.719 g/cm2 Statistically significant decrease CHANGE IS STATISTICALLY SIGNIFICANT IN THE SPINE OR HIP IF GREATER THAN OR EQUAL TO 0.04 g/cm2 VERTEBRAL FRACTURE ASSESSMENT Not performed. TRABECULAR BONE ASSESSMENT TBS score: 1.294 Bone micro-architecture: Partially degraded (1.231 - 1.310) IMPRESSION IMPRESSION: THE LOWEST T-SCORE IS -3.1 IN THE RIGHT HIP 1) DIAGNOSIS (based on BMD alone): OSTEOPOROSIS Caution: Medical conditions other than osteoporosis may cause low bone density, such as osteomalacia or renal osteodystrophy. Clinical correlation is necessary. 2) FRACTURE RISK (Based on TBS adjusted FRAX): 10-year absolute fracture risk: - major osteoporotic fracture = 18 % - hip fracture = 6.8 % - A diagnosis of Osteoporosis, a 10 year probability of hip fracture greater than or equal to 3% or a 10 year probability of any major osteoporosis-related fracture greater than or equal to 20% should be considered for treatment. - DXA scanner generated FRAX calculations may slightly differ from online FRAX calculations due to differences in software versions. - All recommendations and calculations are to be considered as guidelines and should not replace sound clinical judgement - Caution: Fracture risk may be increased independent of BMD in patients with corticosteroid use, age greater than 65 years, or a history of prior fragility fracture. RECOMMENDATIONS: Follow-up in 2 years or as clinically indicated. Patients that are taking corticosteroids, are transplant recipients or have hyperparathyroidism should have annual follow-up. Follow-up scans should always be done on the same machine for accurate comparison. FOR MORE INFORMATION ABOUT DIAGNOSIS AND TREATMENT: [facility] Center for Osteoporosis and Metabolic Bone Disease:? [email or web address]/arthritis /osteo National Osteoporosis Foundation:? www.nof.org International Society of Clinical Densitometry www.iscd.org Geophysical Computer: JOHNATHAN Transcribe Date/Time: Sep 19 2024 2:35P Dictated by : ALEJANDRA LAMB MD This examination was interpreted and the report reviewed and electronically signed by: ALEJANDRA LAMB MD on Sep 19 2024 2:37PM EST [facility] DXA Skeletal system.axial Vi ews for bone densityon 09-19-2024 * * *Final Report* * * DATE OF EXAM: Sep 19 2024 11:55AM [facility] 0804 - BD DXA - AXIAL SKELETON / PROCEDURE REASON: Osteoporosis, unspecified osteoporosis type, unspecified pathological fracture p * * * * Physician Interpretation * * * * EXAMINATION: DXA BONE DENSITOMETRY BD DXA - AXIAL SKELETON, BD DXA TRABECLR BONE SCORE (TBS) PATIENT DEMOGRAPHICS: Age: 74 years, Gender: Female SCANNER INFORMATION: DXA Model: [employer] - Return Path C [id number] Date Scanned: 09/19/2024 11:55 AM CLINICAL HISTORY: DIAGNOSTIC Osteoporosis, unspecified osteoporosis type, unspecified pathological fracture presence . RISK FACTORS FOR OSTEOPOROSIS AND ASSOCIATED FRACTURES REPORTED BY THIS PATIENT: Please refer to Bone Health Questionnaire in the EMR CURRENT THERAPY: Please refer to Bone Health Questionnaire in the EMR RESULTS: Lumbar spine (L1, L2, L3, L4): 0.981 g/cm2, T-score -0.6, Z-score 1.7 Lumbar spine: 2021: 0.865 g/cm2 Statistically significant increase Right Femoral Neck: 0.502 g/cm2, T-score -3.1, Z-score -1.2 Right Femoral Neck: 2021: 0.502 g/cm2 No statistically significant change Right Total Hip: 0.694 g/cm2, T-score -2.0, Z-score -0.4 Right Total Hip: 2021: 0.674 g/cm2 No statistically significant change Left Femoral Neck: 0.519 g/cm2, T-score -3.0, Z-score -1.0 Left Femoral Neck: 2021: 0.495 g/cm2 No statistically significant change Left Total Hip: 0.678 g/cm2, T-score -2.2, Z-score -0.5 Left Total Hip: 2021: 0.719 g/cm2 Statistically significant decrease CHANGE IS STATISTICALLY SIGNIFICANT IN THE SPINE OR HIP IF GREATER THAN OR EQUAL TO 0.04 g/cm2 VERTEBRAL FRACTURE ASSESSMENT Not performed. TRABECULAR BONE ASSESSMENT TBS score: 1.294 Bone micro-architecture: Partially degraded (1.231 - 1.310) DIVISION OF RADIOLOGY Provider, [facility] - 09/19/2024 * * *Final Report* * * DATE OF EXAM: Sep 19 2024 11:55AM [facility] 0804 - BD DXA - AXIAL SKELETON / PROCEDURE REASON: Osteoporosis, unspecified osteoporosis type, unspecified pathological fracture p * * * * Physician Interpretation * * * * EXAMINATION: DXA BONE DENSITOMETRY BD DXA - AXIAL SKELETON, BD DXA TRABECLR BONE SCORE (TBS) PATIENT DEMOGRAPHICS: Age: 74 years, Gender: Female SCANNER INFORMATION: DXA Model: [employer] - Return Path C [id number] Date Scanned: 09/19/2024 11:55 AM CLINICAL HISTORY: DIAGNOSTIC Osteoporosis, unspecified osteoporosis type, unspecified pathological fracture presence . RISK FACTORS FOR OSTEOPOROSIS AND ASSOCIATED FRACTURES REPORTED BY THIS PATIENT: Please refer to Bone Health Questionnaire in the EMR CURRENT THERAPY: Please refer to Bone Health Questionnaire in the EMR RESULTS: Lumbar spine (L1, L2, L3, L4): 0.981 g/cm2, T-score -0.6, Z-score 1.7 Lumbar spine: 2021: 0.865 g/cm2 Statistically significant increase Right Femoral Neck: 0.502 g/cm2, T-score -3.1, Z-score -1.2 Right Femoral Neck: 2021: 0.502 g/cm2 No statistically significant change Right Total Hip: 0.694 g/cm2, T-score -2.0, Z-score -0.4 Right Total Hip: 2021: 0.674 g/cm2 No statistically significant change Left Femoral Neck: 0.519 g/cm2, T-score -3.0, Z-score -1.0 Left Femoral Neck: 2021: 0.495 g/cm2 No statistically significant change Left Total Hip: 0.678 g/cm2, T-score -2.2, Z-score -0.5 Left Total Hip: 2021: 0.719 g/cm2 Statistically significant decrease CHANGE IS STATISTICALLY SIGNIFICANT IN THE SPINE OR HIP IF GREATER THAN OR EQUAL TO 0.04 g/cm2 VERTEBRAL FRACTURE ASSESSMENT Not performed. TRABECULAR BONE ASSESSMENT TBS score: 1.294 Bone micro-architecture: Partially degraded (1.231 - 1.310) IMPRESSION IMPRESSION: THE LOWEST T-SCORE IS -3.1 IN THE RIGHT HIP 1) DIAGNOSIS (based on BMD alone): OSTEOPOROSIS Caution: Medical conditions other than osteoporosis may cause low bone density, such as osteomalacia or renal osteodystrophy. Clinical correlation is necessary. 2) FRACTURE RISK (Based on TBS adjusted FRAX): 10-year absolute fracture risk: - major osteoporotic fracture = 18 % - hip fracture = 6.8 % - A diagnosis of Osteoporosis, a 10 year probability of hip fracture greater than or equal to 3% or a 10 year probability of any major osteoporosis-related fracture greater than or equal to 20% should be considered for treatment. - DXA scanner generated FRAX calculations may slightly differ from online FRAX calculations due to differences in software versions. - All recommendations and calculations are to be considered as guidelines and should not replace sound clinical judgement - Caution: Fracture risk may be increased independent of BMD in patients with corticosteroid use, age greater than 65 years, or a history of prior fragility fracture. RECOMMENDATIONS: Follow-up in 2 years or as clinically indicated. Patients that are taking corticosteroids, are transplant recipients or have hyperparathyroidism should have annual follow-up. Follow-up scans should always be done on the same machine for accurate comparison. FOR MORE INFORMATION ABOUT DIAGNOSIS AND TREATMENT: [facility] for Osteoporosis and Metabolic Bone Disease:? www.cc.org/arthritis /osteo National Osteoporosis Foundation:? www.nof.org International Society of Clinical Densitometry www.iscd.org Geophysical Computer: JOHNATHAN Transcribe Date/Time: Sep 19 2024 2:35P Dictated by : AELJANDRA LAMB MD This examination was interpreted and the report reviewed and electronically signed by: ALEJANDRA LAMB MD on Sep 19 2024 2:37PM EST [facility] No Panel InformationOrdered By: Psychiatric Provider on 09-19-2024 LOWEST T-SCORE -3.1 [facility] No Panel Informationon 09-19 IMPRESSION: THE LOWEST T-SCORE IS -3.1 IN THE RIGHT HIP 1) DIAGNOSIS (based on BMD alone): OSTEOPOROSIS Caution: Medical conditions other than osteoporosis may cause low bone density, such as osteomalacia or renal osteodystrophy. Clinical correlation is necessary. 2) FRACTURE RISK (Based on TBS adjusted FRAX): 10-year absolute fracture risk: - major osteoporotic fracture = 18 % - hip fracture = 6.8 % - A diagnosis of Osteoporosis, a 10 year probability of hip fracture greater than or equal to 3% or a 10 year probability of any major osteoporosis-related fracture greater than or equal to 20% should be considered for treatment. - DXA scanner generated FRAX calculations may slightly differ from online FRAX calculations due to differences in software versions. - All recommendations and calculations are to be considered as guidelines and should not replace sound clinical judgement - Caution: Fracture risk may be increased independent of BMD in patients with corticosteroid use, age greater than 65 years, or a history of prior fragility fracture. RECOMMENDATIONS: Follow-up in 2 years or as clinically indicated. Patients that are taking corticosteroids, are transplant recipients or have hyperparathyroidism should have annual follow-up. Follow-up scans should always be done on the same machine for accurate comparison. FOR MORE INFORMATION ABOUT DIAGNOSIS AND TREATMENT: [facility] for Osteoporosis and Metabolic Bone Disease:? www.ccf.org/arthritis /osteo National Osteoporosis Foundation:? www.nof.org International Society of Clinical Densitometry www.iscd.org Geophysical Computer: JOHNATHAN Transcribe Date/Time: Sep 19 2024 2:35P Dictated by : ALEJANDRA LAMB MD This examination was interpreted and the report reviewed and electronically signed by: ALEJANDRA LAMB MD on Sep 19 2024 2:37PM [facility] DIVISION OF RADIOLOGY Radiology Study observation (narrative) [facility] CNOVon 09-13-2024 CNOV Office Visit (NEMOWS ) LUPIS BRITO ([id number]) 1950 F Date Time Provider Department 09/13/24 9:00 AM RODY PABLO During your visit today, we recorded the following information about you: Blood pressure Weight 111/77 58.3 kg Rody Pablo PA-C 09/13/2024 9:52 AM Signed [facility] for General Neurology Name: Lupis Brito Age: [age] year old Gender: female Primary Care Provider: Tacos Hein MD Consult requested for neuropathy by Tacos Hein. Recommendations will be communicated via shared medical record or US mail. Chief Complaint:New Patient (Peroneal Neuropathy) 09/13/2024 - General Neurology, Rody Pablo PA-C ASSESSMENT ASSESSMENT/PLAN: 1. Neuropathy - ICD9: 355.9, ICD10: G62.9 (primary diagnosis) 2. Peroneal neuropathy, unspecified laterality - ICD9: 355.3, ICD10: G57.30 Patient with a year of slightly worsening paresthesias to the bottom of the feet and toes bilaterally. Started on the left a few months later started on the right. Notes constant ktcy-afi-dtnvrvu and a dull ache to the toes on the bottom which occasionally radiates to the heel but does not go to the top of the foot, ankle or up the leg. Has chronic lumbar issues for which she sees pain management for. Had an EMG done at [facility], but does not show any readings, describes a bilateral peroneal neuropathy, patient states occasionally she crosses her legs but nothing consistent. No surgeries to the lower legs, did have 1 lumbar surgery in the past. History is more suggestive of a possible polyneuropathy, stocknathalie glove, does not really have any deficits in the peroneal distribution on the legs bilaterally. Discussed the close of the lumbar and etiology. Does take B complex and has done so for years, discussed obtaining further laboratory studies, previous B12, TSH were normal. Patient is amenable to this, discussed repeating the EMG and she would like to first complete laboratory studies. No falls, trips, signs or symptoms of cord compression. Notes her discomfort is well-controlled with gabapentin. Patient agreeable to treatment plan of care at this time, questions were answered. Patient to follow-up as needed. Rody Pablo PA-C Encounter Diagnosis ICD-10-CM 1. Neuropathy G62.9 EMG(NEURO/NI) VITAMIN B1 (THIAMINE), WHOLE BLOOD VITAMIN B6/PYRIDOXIN PROTEIN ELECTROPHORESIS SERUM W/INTERP C-REACTIVE PROTEIN SEDIMENTATION RATE, WESTERGREN 2. Peroneal neuropathy, unspecified laterality G57.30 No follow-ups on file. Chart, labs,and relevant images reviewed. HPI: Saw PCP for leg paresthesias, Let patient know her nerve study shows an abnormal conduction study suggestive of a right and left peroneal nerve neuropathy at the fibular head on both sides. Last seen on 08/16/24 Patient fisher been having burning in the toes and bottom of her feet for abut year and has slowly increased. Has not discussed this in the past. Taking the gabapentin twice a day does help reduce this discomfort and control her nightly RSL and improves her ablility to fall asleep. B12, folate and TSH normal. This is a 74 year old female presenting with numbness to the feet. Patient reports about a year ago she began experiencing some numbness starting on the left foot to the toes and bottom of the foot. Few months later she started experiencing similar symptoms to the left foot. Typically the symptoms are constant to the toes but occasionally will radiate to the entire bottom of the foot to the heel. Does not go to the top of the foot at the ankle or higher up to the leg. Started on gabapentin and notes some improvement with this. Also helps with the restless leg symptoms at night as well. No history of surgeries or injuries to the feet or ankles. Does report that she crosses her legs but mostly at the ankles and not at the knees. Has a history of lumbar issues for years, has had 1 spinal stenosis surgery many years ago and follows with Dr. Alves for pain management. Notes that her pain is controlled at this time. No falls recently, occasional weakness in the legs but attributes this more to her lumbar issues. Describes discomfort in the feet as a dull ache with occasional cofh-lfz-yyfmunj that is worse at nighttime. No symptoms in the hands. Of note she has been on B complex for many years, no history of diabetes or risk factors. Numbness in feet: yes, Numbness in hands: no Burning pain in feet: no Burning pain in hands: no Abnormal temperature sensation in limbs:no Falls: no Balance issues: no Worse at night?: yes, Neuropathy risk factors: Excess B6 intake FH- none Review of Systems ACTIVE PROBLEM LIST Osteoporosis Vitamin D Deficiency Restless Leg Syndrome Lumbar Degenerative Disc Disease Postmenopausal Atrophic Vaginitis Insomnia Inflammatory (more content not included)... Normal [facility] CRP [facility] CRP [Mass/Vol] 0.5 mg/dL Normal <0.9 [facility] Comment on above: Order Comment: Speci men Type: BLOOD SPECIMENOrdering Facility: [facility] Address: [address] [place] [address] Performed By: #### 1 988-5, 2885-2 ####[facility] [id number] [place] [address] [place] ESR Westergren method (Bld) [Velocity]on 09-13-2024 ESR (Bld) [Velocity] 27 mm/h High 0-20 [facility] Comment on above: Order Comment: Speci men Type: BLOOD SPECIMEN Ordering Facility: [facility] Address: [address] [place] [address] Performed By: #### L [id number] #### [facility] CLIA [id number] [address] [place] [address] [place] PROTEIN ELECTROPHORESIS SERU M (P)on 02-18-2025 Albumin [Mass/Vol] 4.40 g/dL Normal 3.43-5.41 [facility] Comment on above: Order Comment: Speci men Type: BLOOD SPECIMEN [facility]ing Facility: [facility] Address: [address] [place] [address] Performed By: #### L [id number] #### [facility] CLIA [id number] [address] [place] [address] [place] Alpha 1 globulin Elph [Mass/Vol] 0.31 g/dL Normal 0.18-0.43 [facility] Comment on above: Order Comment: Speci men Type: BLOOD SPECIMEN Ordering Facility: [facility] Address: [address] [place] [address] Performed By: #### L [id number] #### [facility] CLIA [id number] [address] [place] [address] [place] Alpha 2 globulin Elph [Mass/Vol] 0.68 g/dL Normal 0.42-0.98 [facility] Comment on above: Order Comment: Speci men Type: BLOOD SPECIMEN Ordering Facility: [facility] Address: [address] [place] [address] Performed By: #### L [id number] #### [facility] CLIA [id number] [address] [place] [address] [place] Beta globulin Elph [Mass/Vol] 1.00 g/dL Normal 0.61-1.17 [facility] Comment on above: Order Comment: Speci men Type: BLOOD SPECIMEN Order[facility] Facility: [facility] Address: [address] [place] [address] Performed By: #### L [id number] #### [facility] CLIA [id number] [address] [place] [address] [place] Gamma globulin Elph [Mass/Vol] 1.52 g/dL High 0.53-1.51 [facility] Comment on above: Order Comment: Speci men Type: BLOOD SPECIMEN Ordering Facility: [facility] Address: [address] [place] [address] Performed By: #### L [id number] #### [facility] CLIA [id number] [address] [place] [address] [place] INTERPRETATION COMMENT FOR PROTEIN ELECTROPHORESIS The atypical region is relatively poorly defined and may represent an unusual presentation of polyclonal immunoglobulins, but cannot rule out the presence of a low level M protein. If clinically indicated, monoclonal protein analysis and serum free light chain analysis are suggested to evaluate further for monoclonal gammopathy. Normal [facility] Comment on above: Order Comment: Speci men Type: BLOOD SPECIMEN Ordering Facility: [facility] Address: [address] [place] [address] Performed By: #### L [id number] #### [facility] CLIA [id number] [address] [place] [address] [place] M-PROTEIN LOCATION Normal [facility] Comment on above: Order Comment: Speci ricardo Type: BLOOD SPECIMEN [facility] Facility: [facility] Address: [address] [place] [address] Result Comment: Not Applicable. Performed By: #### L [id number] #### [facility] CLIA [id number] [address] [place] [address] [place] Protein Fractions [Interp] An atypical region of restricted mobility is identified on protein electrophoresis. Abnormal No definitive M protein is identified on protein electrophore sis. [facility] Comment on above: Order Comment: Speci men Type: BLOOD SPECIMEN [facility]: [facility] Address: [address] [place] [address] Performed By: #### L [id number] #### [facility] CLIA [id number] [address] [place] [address] [place] Protein.monoclonal Elph [Mass/Vol] 0.00 g/dL Normal <=0.00 [facility] Comment on above: Order Comment: Speci men Type: BLOOD SPECIMEN [facility]: [facility] Address: [address] [place] [address] Performed By: #### L [id number] #### [facility] CLIA [id number] [address] [place] [address] [place] SPE STAFF REVIEW Reviewed by Christine Glez M.D., Ph.D Normal [facility] Comment on above: Order Comment: Speci men Type: BLOOD SPECIMEN [facility]: [facility] Address: [address] [place] [address] Performed By: #### L [id number] #### [facility] CLIA [id number] [address] [place] [address] [place] Prot SerPl-mCncon 09-13-2024 Protein [Mass/Vol] 7.9 g/dL Normal 6.3-8.0 [facility] Comment on above: Order Comment: Carmela silva Type: BLOOD SPECIMENOrdering Facility: [facility] Address: [address] [place] [address] Performed By: #### 1 988-5, 2885-2 ####[facility] [id number] [place] [address] [place] VITAMIN B1 (THIAMINE), WHOLE BLOODon 09-13-2024 Thiamine (Bld) [Moles/Vol] 224.1 nmol/L High 84.3-213.3 [facility] Comment on above: Order Comment: Carmela silva Type: BLOOD SPECIMEN [facility]: [facility] Address: [address] [place] [address] Result Comment: This assay measures the concentration of thiamine diphosphate (TDP), the primary active form of vitamin B1. Approximately 90 percent of vitamin B1 present in whole blood is TDP. Thiamine and thiamine monophosphate, which comprise the remaining 10 percent, are not measured. This test was developed, and its performance characteristics determined by the [facility] Department of Pathology and Laboratory Medicine. It has not been cleared or approved by the FDA. The [facility] Department of Pathology and Laboratory Medicine is regulated under CLIA as qualified to perform high-complexity testing. This test is used for clinical purposes. It should not be regarded as investigational or for research. Performed By: #### L [id number] #### [facility] CLIA [id number] [address] [place] [address] [place] VITAMIN B6/PYRIDOXINon 09-13 VITAMIN B6 177.0 nmol/L High 20.0-125.0 [facility] Comment on above: Order Comment: Speci men Type: URINE SPECIMEN Order[facility] Facility: [facility] Address: [address] [place] [address] Result Comment: INTE RPRETIVE INFORMATION: Vitamin B6 (Pyridoxal 5-Phosphate) Pyridoxal 5'-phosphate measured in a specimen collected following an 8-hour or overnight fast accurately indicates vitamin B6 nutritional status. Non-fasting specimen concentration reflects recent vitamin intake. This test was developed and its performance characteristics determined by [employer] It has not been cleared or approved by the US Food and Drug Administration. This test was performed in a CLIA certified laboratory and is intended for clinical purposes. Performed By: [facility] [address] [place] [address] Utility Aircrewman: Aman Aldridge MD, PhD CLIA Number: [id number] Performed By: #### L [id number] #### [facility] CLIA [id number] [address] [place] [address] [place] CNPNon 09-01-2024 [facility] LUP[facility] BRITO ([id number]) 1950 F Date Time Provider Department 09/01/24 [facility] During your visit today, we recorded the following information about you: Prosper Rodriguez LPN 09/01/2024 7:10 AM Signed Received EMG/NCS report from [facility] ordered by PCP. 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 I have placed a referral to see Neuromuscular. Kyara Gao RN 09/01/2024 5:18 PM Signed Pt called and is notified of providers results and instructions. Pt voices understanding. Pt states she will call back in tomorrow to set up appointment. Kyara Gao RN Allergies As of Date: 09/01/2024 Noted Allergy Reaction CLINDAMYCIN 02/21/2023 2 - Rash BONIVA (IBANDRONATE) 07/09/2022 8 - GI Upset Comments: Increase in GERD DOXYCYCLINE 02/01/2024 14 - Other: See Comments Comments: Accelerated heart rate FOSAMAX (ALENDRONATE) 07/09/2022 8 - GI Upset Comments: Increase heartburn/GI MOLD 02/09/2019 14 - Other: See Comments Comments: Nasal/sinus PENICILLINS 08/20/2004 16 - Unknown POLLEN EXTRACTS 02/09/2019 14 - Other: See Comments Comments: Nasal/sinus SULFA (SULFONAMIDE ANTIBIOTICS) 08/20/2004 16 - Unknown Date Reviewed: 08/16/2024 Reviewed by: Tacos Hein MD - Fully Assessed Reason for Visit: Results [95] Cmt: EMG Primary Visit Diagnosis:Peroneal neuropathy, 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 - meloxicam (MOBIC) 7.5 mg tablet Take 1 tablet by mouth once daily. - montelukast (SINGULAIR) 10 mg tablet Take 1 tablet by mouth daily at bedtime. - fluticasone (FLONASE) 50 mcg/actuation nasal spray instill 2 sprays into each nostril once daily - denosumab (PROLIA) 60 mg/mL 1 milliliter subcutaneously every 6 months. - calcium carbonate (CALCIUM 300 ORAL) Take by mouth once daily. - albuterol HFA (VENTOLIN HFA) 90 mcg/actuation inhaler Inhale 2 Puffs as instructed every 4 hours as needed for wheezing/shortness of breath. - MELATONIN ORAL Take by mouth as directed. - VITAMIN B COMPLEX ORAL Take by mouth. - L.ACID/L.CASEI/B.BIF/ B.ROBIN/FOS (PROBIOTIC BLEND ORAL) Take by mouth. - folic acid 800 mcg ORAL Tab Take one(1) tablet daily. - DAILY MULTIVITAMIN TAB Take one(1) tablet daily. 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] 03/26/2015 Arthritis of both hips [M16.0] 08/23/2015 Fibromyalgia [M79.7] 08/23/2015 Spinal stenosis of lumbar region with radiculop*10/09/2016 Screening for colon cancer [Z12.11] 01/21/2021 Medication management [Z79.899] 01/21/2021 Dyslipidemia [E78.5] 01/22/2021 Medicare annual wellness visit, subsequent [Z00*08/14/[address] [Z78.9] 08/15/2022 Advance directive discussed with patient [Z71.8*08/15/2022 Mild intermittent asthma without complication [*12/01/2023 Peroneal neuropathy [G57.30] 09/01/2024 Encounter Status:Closed by KYARA GAO on 09/01/24 Normal [facility] NCS and/or EMG Patienton NCS and/or EMG Patient [facility] Pulmonary Services/Neurology [address] [place] [address] MR#: [id number] Acct: [id number] Name: LUPIS BRITO Rep #: [id number] : 1950 74 From: Jackson Mcallister MD Referring Dr: Tacos Hein MD Status: REG CLI Location: PSN Date: 08/31/24 Sex: F C NCS and/or EMG Patient Report Ordering Doctor: Tacos Hein DATE OF SERVICE: 08/31/24 Lupis presents with complaints of numbness and tingling in both feet. Electrodiagnostic findings: Peroneal motor nerve demonstrates normal distal latency, amplitude on the left side. There is decrease in conduction velocity across the fibular head. Right peroneal motor nerve demonstrates normal distal latency, amplitude with a drop in conduction across the fibular head. Tibial motor responses are within normal limits bilaterally. Sensory responses are normal. Normal peroneal and tibial F???waves. H???reflex normal bilaterally. Needle EMG testing shows no evidence of denervation with normal motor unit action potentials. Electrodiagnostic impression: This is an abnormal study. 1. 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 2. There is no electrodiagnostic evidence for peripheral polyneuropathy. 3. There is no electrodiagnostic evidence for lumbosacral radiculopathy. Multi Select Codes Neurology Neurology Interp Codes: 28858-97 Musc test done w/n test comp (interp) (2) and 81243-48 Nr cndj test 9-10 studies (interp) 08/31/24 1434 Date Jackson Mcallister MD CC: Dr. Jackson Mcallister MD; Dr. Tacos Hein MD Date Dictated: 08/31/24 1430 Date Transcribed: 08/31/241429 Geophysical Computer: MCKENNA Signed Normal [facility] 08-22-2024 [facility] Telephone ([facility]) DARYLLUPIS Sandoval ([id number]) 1950 F Date Time Provider Department 08/22/24 TACOS HEIN During your visit today, we recorded the following information about you: Leann Leahy LPN 08/22/2024 11:55 AM Signed Last OV: 08/16/24 Pt is calling to report to pcp nurse that she did not get a call from the hospital to schedule nerve conduction study test. Did not see an order for this in pt's chart. Please review and advise. LEYLA Nelson Roxanne, MA 08/22/2024 3:27 PM Signed Re-faxed to [facility]. Jeannie Pool MA Allergies As of Date: 08/22/2024 Noted Allergy Reaction CLINDAMYCIN 02/21/2023 2 - Rash BONIVA (IBANDRONATE) 07/09/2022 8 - GI Upset Comments: Increase in GERD DOXYCYCLINE 02/01/2024 14 - Other: See Comments Comments: Accelerated heart rate FOSAMAX (ALENDRONATE) 07/09/2022 8 - GI Upset Comments: Increase heartburn/GI MOLD 02/09/2019 14 - Other: See Comments Comments: Nasal/sinus PENICILLINS 08/20/2004 16 - Unknown POLLEN EXTRACTS 02/09/2019 14 - Other: See Comments Comments: Nasal/sinus SULFA (SULFONAMIDE ANTIBIOTICS) 08/20/2004 16 - Unknown Date Reviewed: 08/16/2024 Reviewed by: Tacos Hein MD - Fully Assessed Reason for Visit: Appointment [186] Prescriptions as of 08/22/2024 - gabapentin (NEURONTIN) 300 mg capsule Take 1 capsule by mouth two times a day for 180 days. - meloxicam (MOBIC) 7.5 mg tablet Take 1 tablet by mouth once daily. - montelukast (SINGULAIR) 10 mg tablet Take 1 tablet by mouth daily at bedtime. - fluticasone (FLONASE) 50 mcg/actuation nasal spray instill 2 sprays into each nostril once daily - denosumab (PROLIA) 60 mg/mL 1 milliliter subcutaneously every 6 months. - calcium carbonate (CALCIUM 300 ORAL) Take by mouth once daily. - albuterol HFA (VENTOLIN HFA) 90 mcg/actuation inhaler Inhale 2 Puffs as instructed every 4 hours as needed for wheezing/shortness of breath. - MELATONIN ORAL Take by mouth as directed. - VITAMIN B COMPLEX ORAL Take by mouth. - L.ACID/L.CASEI/B.BIF/ B.ROIBN/FOS (PROBIOTIC BLEND ORAL) Take by mouth. - folic acid 800 mcg ORAL Tab Take one(1) tablet daily. - DAILY MULTIVITAMIN TAB Take one(1) tablet daily. 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] 03/26/2015 Arthritis of both hips [M16.0] 08/23/2015 Fibromyalgia [M79.7] 08/23/2015 Spinal stenosis of lumbar region with radiculop*10/09/2016 Screening for colon cancer [Z12.11] 01/21/2021 Medication management [Z79.899] 01/21/2021 Dyslipidemia [E78.5] 01/22/2021 Medicare annual wellness visit, subsequent [Z00*08/14/[address] [Z78.9] 08/15/2022 Advance directive discussed with patient [Z71.8*08/15/2022 Mild intermittent asthma without complication [*12/01/2023 Encounter Status:Closed by JEANNIE POOL on 08/22/24 [facility]UPIS BRITO ([id number]) 1950 F Date Time Provider Department 08/17/24 [facility] During your visit today, we recorded the following information about you: Tacos Hein MD 08/17/2024 9:52 AM Signed Let patient know her labs from yesterday were ok. Prosper Rodriguez LPN 08/17/2024 9:59 AM Signed Pt notified of same. Prosper Rodriguez LPN Allergies As of Date: 08/17/2024 Noted Allergy Reaction CLINDAMYCIN 02/21/2023 2 - Rash BONIVA (IBANDRONATE) 07/09/2022 8 - GI Upset Comments: Increase in GERD DOXYCYCLINE 02/01/2024 14 - Other: See Comments Comments: Accelerated heart rate FOSAMAX (ALENDRONATE) 07/09/2022 8 - GI Upset Comments: Increase heartburn/GI MOLD 02/09/2019 14 - Other: See Comments Comments: Nasal/sinus PENICILLINS 08/20/2004 16 - Unknown POLLEN EXTRACTS 02/09/2019 14 - Other: See Comments Comments: Nasal/sinus SULFA (SULFONAMIDE ANTIBIOTICS) 08/20/2004 16 - Unknown Date Reviewed: 08/16/2024 Reviewed by: Tacos Hein MD - Fully Assessed Reason for Visit: Results [95] Prescriptions as of 08/17/2024 - gabapentin (NEURONTIN) 300 mg capsule Take 1 capsule by mouth two times a day for 180 days. - meloxicam (MOBIC) 7.5 mg tablet Take 1 tablet by mouth once daily. - montelukast (SINGULAIR) 10 mg tablet Take 1 tablet by mouth daily at bedtime. - fluticasone (FLONASE) 50 mcg/actuation nasal spray instill 2 sprays into each nostril once daily - denosumab (PROLIA) 60 mg/mL 1 milliliter subcutaneously every 6 months. - calcium carbonate (CALCIUM 300 ORAL) Take by mouth once daily. - albuterol HFA (VENTOLIN HFA) 90 mcg/actuation inhaler Inhale 2 Puffs as instructed every 4 hours as needed for wheezing/shortness of breath. - MELATONIN ORAL Take by mouth as directed. - VITAMIN B COMPLEX ORAL Take by mouth. - L.ACID/L.CASEI/B.BIF/ B.ROBIN/FOS (PROBIOTIC BLEND ORAL) Take by mouth. - folic acid 800 mcg ORAL Tab Take one(1) tablet daily. - DAILY MULTIVITAMIN TAB Take one(1) tablet daily. Problem List As Of Date 08/17/2024 Noted Resolved BURSITIS NEC [M71.50] 08/20/2004 10/18/2004 Acute gastritis without mention of hemorrhage [*01/03/2008 01/01/2015 Osteoporosis [M81.0] 12/10/2009 Vitamin D deficiency [E55.9] 12/12/2009 Restless leg syndrome [G25.81] 03/25/2010 Lumbar degenerative disc disease [M51.369] 12/16/2010 Postmenopausal atrophic vaginitis [N95.2] 11/03/2012 Intrinsic asthma [J45.909] 10/31/2014 12/01/2023 Insomnia [G47.00] 03/26/2015 Inflammatory arthritis [M19.90] 03/26/2015 Psoriasis of nail [L40.9] 03/26/2015 Arthritis of both hips [M16.0] 08/23/2015 Fibromyalgia [M79.7] 08/23/2015 Spinal stenosis of lumbar region with radiculop*10/09/2016 Screening for colon cancer [Z12.11] 01/21/2021 Medication management [Z79.899] 01/21/2021 Dyslipidemia [E78.5] 01/22/2021 Medicare annual wellness visit, subsequent [Z00*08/14/[address] [Z78.9] 08/15/2022 Advance directive discussed with patient [Z71.8*08/15/2022 Mild intermittent asthma without complication [*12/01/2023 Encounter Status:Closed by PROSPER RODRIGUEZ on 08/17/24 [facility] CNOVon 08-16-2024 CNOV Office Visit (FAMPWS ) LUPIS BRITO ([id number]) 1950 F Date Time Provider Department 08/16/24 10:40 AM TACOS HEIN [facility] During your visit today, we recorded the following information about you: Pulse Respiration Blood pressure Weight 68/minute 16/minute 112/78 59 kg Height 1.632 m Tacos Hein MD 08/16/2024 8:14 PM Signed Lupis Brito is a 74 year old female here for a Medicare wellness visit. Medicare Health Risk Assessment General Health Very good Exercise: Minutes/Day 50 min Exercise: Days/Week 5 days Alcohol: Daily Use 2-4 times a month Alcohol: Drinks/Day 1 or 2 Alcohol: 6 or more drinks Never Feel off balance No Concerns: Teeth/Dentures No Concerns: Sexual function No Troubled by feelings None of the above Frequency: Eating healthy diet Several days ADLs requiring help None of the above Safety precautions in home/vehicle No Smoke, vape, chews tobacco No Difficulty hearing No Difficulty seeing No Current Providers Specialists: I have reviewed specialist-related care of the patient in the medical record. Current care team: Patient Care Team: Tacos Hein MD as PCP - General (Family Medicine) Tess Navarrete APRN.CNP as Audit Officer (Family Medicine) Madison Mariee PA-C as Audit Officer (Family Medicine) Dr. Sage: Pulm Medical/Family history review Reviewed and updated problem list, medical/surgical/fami ly/social history, medications, and allergies. Opioid use review Opioid Medications (last 90 days) No data to display Anxiety/Depression screening PHQ-9 Score: 0 . JOVANY-7 Score: 0 . Recommendation: no further intervention at this time Cognitive screening Score: 5 Cognitive screening reviewed and No further action needed (score 3-5). Functional Observation Was the patient's Timed Up AND Go test unsteady or >= 12 seconds? No Advance Care Planning Surrogate decision maker and/or advance care plan documented Measurements BP 112/78 Pulse 68 Resp 16 Ht 163.2 cm (5' 4.25) Wt 59 kg (130 lb) BMI 22.14 kg/m? Vision Screening: Follows with optometry/ophthalmolo gy Assessment/Plan Medicare annual wellness visit, subsequent (Z00.00) - Counseled on healthy diet and regular exercise - Fall avoidance information provided - Personalized prevention plan provided See below Chief Complaint Patient presents with: Medicare Wellness Exam HPI Lupis Brito is a 74 year old female who presents here today for Chronic Medical Conditions. and Medicare Annual Visit. Patient with hx of asthma, HLP, inflammatory arthritis, RLS, insomnia, fibro, osteoporosis, chronic back pains and those as reviewed below. Patient sees Dr. Cruz - Pulmonary last visit 06/2024 Patient fisher been having burning in the toes and bottom of her feet for abut year and has slowly increased. Has not discussed this in the past. Taking the gabapentin twice a day does help reduce this discomfort and control her nightly RSL and improves her ablility to fall asleep. Past medical history, appointments, medications, allergies reviewed. [...] irregular heart beat. Asthma No Family History Coronary Artery Disease No Family History Patient Allergies ALLERGIES Allergen Reactions Clindamycin Rash Boniva [Ibandronate] GI Upset Increase in GERD Doxycycline Other: See Comments Accelerate (more content not included)... Normal [facility] Folate SerPl-mCncon 08-16-19 25 Folate [Mass/Vol] ng/mL Normal >4.7 [facility] Comment on above: Order Comment: Speci men Type: BLOOD SPECIMEN Ordering Facility: [facility] Address: [address] [place] [address] Result Comment: A re sult of > 20 ng/mL is not necessarily indicative of a pathologic or treatable condition: it reflects a limitation of the test methodology. Assay reference range: 4.8 to 24.2 ng/mL. Suitable for detection of folate deficiency. Reference: Folate III (Folate III) [package insert V 1.0 Luxem[place]ish]. [facility], [place], [place]: May 2015. Performed By: #### K LFRS #### [facility] CLIA [id number] [address] [place] [address] [place] T4 Free SerPl-mCncon 025 Free T4 [Mass/Vol] 1.3 ng/dL Normal 0.9-1.7 [facility] Comment on above: Order Comment: Speci men Type: BLOOD SPECIMEN Ordering Facility: [facility] Address: [address] [place] [address] Performed By: #### K LFRS #### [facility] CLIA [id number] [address] [place] [address] OF [facility] TSH SerPl-aCncon 08-16-2024 TSH Qn 2.080 m[IU]/L Normal 0.270-4.200 [facility] Comment on above: Order Comment: Speci men Type: BLOOD SPECIMEN Ordering Facility: [facility] Address: [address] [place] [address] Performed By: #### L [id number] #### [facility] CLIA [id number] [address] [place] [address] OF [facility] Vit B12 [facility] 025 Cobalamin (Vitamin B12) [Mass/Vol] 1711 pg/mL High 232-1245 [facility] Comment on above: Order Comment: Speci men Type: BLOOD SPECIMEN Ordering Facility: [facility] Address: [address] [place] [address] Performed By: #### K LFRS #### [facility] CLIA [id number] [address] [place] [address] 25(OH)D3 [facility] 25-hydroxyvitamin D3 [Mass/Vol] 37.6 ng/mL Normal 31.0-80.0 [facility] Comment on above: Order Comment: Speci men Type: URINE SPECIMEN Ordering Facility: [facility] Address: [address] [place] [address] Result Comment: Clas sification of 25 [place] Vitamin D status: Deficiency/Insufficiency: < or = 30 ng/ml. Sufficiency/Optimal Levels: 31-80 ng/mL Toxicity: > 100 ng/mL. Test performed by chemiluminescent immunoassay. Performed By: #### L [id number] #### [facility] CLIA [id number] [address] [place] [address] [place] CBC W Auto Differential pane l (Bld)on 08-12-2024 Basophils (Bld) [#/Vol] 0.10 10*3/uL Normal <0.11 [facility] Comment on above: Order Comment: Speci men Type: BLOOD SPECIMEN Ordering Facility: [facility] Address: [address] [place] [address] Performed By: #### L [id number] #### [facility] CLIA [id number] [address] [place] [address] [place] Basophils/100 WBC (Bld) 1.3 % Normal [facility] Comment on above: Order Comment: Speci men Type: BLOOD SPECIMEN Ordering Facility: [facility] Address: [address] [place] [address] Performed By: #### L [id number] #### [facility] CLIA [id number] [address] [place] [address] [place] Differential cell count method Nom (Bld) Auto Normal [facility] Comment on above: Order Comment: Speci men Type: BLOOD SPECIMEN Ordering Facility: [facility] Address: [address] [place] [address] Performed By: #### L [id number] #### [facility] CLIA [id number] [address] [place] [address] [place] Eosinophils (Bld) [#/Vol] 0.28 10*3/uL Normal <0.46 [facility] Comment on above: Order Comment: Speci men Type: BLOOD SPECIMEN Ordering Facility: [facility] Address: [address] [place] [address] Performed By: #### L [id number] #### [facility] CLIA [id number] [address] [place] [address] [place] Eosinophils/100 WBC (Bld) 3.6 % Normal [facility] Comment on above: Order Comment: Speci men Type: BLOOD SPECIMEN Ordering Facility: [facility] Address: [address] [place] [address] Performed By: #### L [id number] #### [facility] CLIA [id number] [address] [place] [address] [place] Erythrocyte distribution width (RBC) [Ratio] 13.0 % Normal 11.5-15.0 [facility] Comment on above: Order Comment: Speci men Type: BLOOD SPECIMEN Ordering Facility: [facility] Address: [address] [place] [address] Performed By: #### L [id number] #### [facility] CLIA [id number] [address] [place] [address] [place] Hematocrit (Bld) [Volume fraction] 39.8 % Normal 36.0-46.0 [facility] Comment on above: Order Comment: Speci men Type: BLOOD SPECIMEN Ordering Facility: [facility] Address: [address] [place] [address] Performed By: #### L [id number] #### [facility] CLIA [id number] [address] [place] [address] [place] Hemoglobin (Bld) [Mass/Vol] 12.7 g/dL Normal 11.5-15.5 [facility] Comment on above: Order Comment: Speci men Type: BLOOD SPECIMEN Ordering Facility: [facility] Address: [address] [place] [address] Performed By: #### L [id number] #### [facility] CLIA [id number] [address] [place] [address] [place] Immature granulocytes (Bld) [#/Vol] 0.03 10*3/uL Normal <0.10 [facility] Comment on above: Order Comment: Speci men Type: BLOOD SPECIMEN Ordering Facility: [facility] Address: [address] [place] [address] Performed By: #### L [id number] #### [facility] CLIA [id number] [address] [place] [address] [place] Immature granulocytes/100 WBC (Bld) 0.4 % Normal [facility] Comment on above: Order Comment: Speci men Type: BLOOD SPECIMEN Ordering Facility: [facility] Address: [address] [place] [address] Performed By: #### L [id number] #### [facility] CLIA [id number] [address] [place] [address] [place] Lymphocytes (Bld) [#/Vol] 2.12 10*3/uL Normal 1.00-4.00 [facility] Comment on above: Order Comment: Speci men Type: BLOOD SPECIMEN Ordering Facility: [facility] Address: [address] [place] [address] Performed By: #### L [id number] #### [facility] CLIA [id number] [address] [place] [address] [place] Lymphocytes/100 WBC (Bld) 27.0 % Normal [facility] Comment on above: Order Comment: Speci men Type: BLOOD SPECIMEN Ordering Facility: [facility] Address: [address] [place] [address] Performed By: #### L [id number] #### [facility] CLIA [id number] [address] [place] [address] [place] MCH (RBC) [Entitic mass] 29.5 pg Normal 26.0-34.0 [facility] Comment on above: Order Comment: Speci men Type: BLOOD SPECIMEN Ordering Facility: [facility] Address: [address] [place] [address] Performed By: #### L [id number] #### [facility] CLIA [id number] [address] [place] [address] [place] MCHC (RBC) [Mass/Vol] 31.9 g/dL Normal 30.5-36.0 [facility] Comment on above: Order Comment: Speci men Type: BLOOD SPECIMEN Ordering Facility: [facility] Address: [address] [place] [address] Performed By: #### L [id number] #### [facility] CLIA [id number] [address] [place] [address] [place] MCV (RBC) [Entitic vol] 92.3 fL Normal 80.0-100.0 [facility] Comment on above: Order Comment: Speci men Type: BLOOD SPECIMEN Ordering Facility: [facility] Address: [address] [place] [address] Performed By: #### L [id number] #### [facility] CLIA [id number] [address] [place] [address] [place] Monocytes (Bld) [#/Vol] 0.76 10*3/uL Normal <0.87 [facility] Comment on above: Order Comment: Speci men Type: BLOOD SPECIMEN Ordering Facility: [facility] Address: [address] [place] [address] Performed By: #### L [id number] #### [facility] CLIA [id number] [address] [place] [address] [place] Monocytes/100 WBC (Bld) 9.7 % Normal [facility] Comment on above: Order Comment: Speci men Type: BLOOD SPECIMEN Ordering Facility: [facility] Address: [address] [place] [address] Performed By: #### L [id number] #### [facility] CLIA [id number] [address] [place] [address] [place] Neutrophils (Bld) [#/Vol] 4.56 10*3/uL Normal 1.45-7.50 [facility] Comment on above: Order Comment: Speci men Type: BLOOD SPECIMEN Ordering Facility: [facility] Address: [address] [place] [address] Performed By: #### L [id number] #### [facility] CLIA [id number] [address] [place] [address] [place] Neutrophils/100 WBC (Bld) 58.0 % Normal [facility] Comment on above: Order Comment: Speci men Type: BLOOD SPECIMEN Ordering Facility: [facility] Address: [address] [place] [address] Performed By: #### L [id number] #### [facility] CLIA [id number] [address] [place] [address] [place] Nucleated RBC (Bld) [#/Vol] 10*3/uL Normal <0.01 [facility] Comment on above: Order Comment: Speci men Type: BLOOD SPECIMEN Ordering Facility: [facility] Address: [address] [place] [address] Performed By: #### L [id number] #### [facility] CLIA [id number] [address] [place] [address] [place] Nucleated RBC/100 WBC (Bld) [Ratio] 0.0 /100 WBC Normal [facility] Comment on above: Order Comment: Speci men Type: BLOOD SPECIMEN Ordering Facility: [facility] Address: [address] [place] [address] Performed By: #### L [id number] #### [facility] CLIA [id number] [address] [place] [address] [place] Platelet mean volume (Bld) [Entitic vol] 9.6 fL Normal 9.0-12.7 [facility] Comment on above: Order Comment: Speci men Type: BLOOD SPECIMEN Ordering Facility: [facility] Address: [address] [place] [address] Performed By: #### L [id number] #### [facility] CLIA [id number] [address] [place] [address] [place] Platelets (Bld) [#/Vol] 288 10*3/uL Normal 150-400 [facility] Comment on above: Order Comment: Speci men Type: BLOOD SPECIMEN Ordering Facility: [facility] Address: [address] [place] [address] Performed By: #### L [id number] #### [facility] CLIA [id number] [address] [place], [place] [id number] [place] RBC (Bld) [#/Vol] 4.31 10*6/uL Normal 3.90-5.20 [facility] Comment on above: Order Comment: Speci men Type: BLOOD SPECIMEN Ordering Facility: [facility] Address: [address] [place] [address] Performed By: #### L [id number] #### [facility] CLIA [id number] [address] [place] [address] [place] WBC (Bld) [#/Vol] 7.85 10*3/uL Normal 3.70-11.00 [facility] Comment on above: Order Comment: Speci men Type: BLOOD SPECIMEN Ordering Facility: [facility] Address: [address] [place] [address] Performed By: #### L [id number] #### [facility] CLIA [id number] [address] [place] [address] [place] Comprehensive metabolic 2000 panelon 08-12-2024 Albumin [Mass/Vol] 4.3 g/dL Normal 3.9-4.9 [facility] Comment on above: Order Comment: Speci men Type: BLOOD SPECIMEN Ordering Facility: [facility] Address: [address] [place] [address] Performed By: #### 2 4323-8, LIPNF #### [facility] CLIA [id number] [address] [place] [address] [place] ALP [Catalytic activity/Vol] 62 U/L Normal 34-123 [facility] Comment on above: Order Comment: Speci men Type: BLOOD SPECIMEN Ordering Facility: [facility] Address: [address] [place] [address] Performed By: #### 2 4323-8, LIPNF #### [facility] CLIA [id number] [address] [id number] [address] [place] ALT [Catalytic activity/Vol] 13 U/L Normal 7-38 [facility] Comment on above: Order Comment: Speci men Type: BLOOD SPECIMEN Ordering Facility: [facility] Address: [address] [place] [address] Performed By: #### 2 4323-8, LIPNF #### [facility] CLIA [id number] [address] [place] [address] [place] Anion gap [Moles/Vol] 13 mmol/L Normal 8-15 [facility] Comment on above: Order Comment: Speci men Type: BLOOD SPECIMEN Ordering Facility: [facility] Address: [address] [place] [address] Performed By: #### 2 4323-8, LIPNF #### [facility] CLIA [id number] [address] [place] [address] [place] AST [Catalytic activity/Vol] 25 U/L Normal 13-35 [facility] Comment on above: Order Comment: Speci men Type: BLOOD SPECIMEN Ordering Facility: [facility] Address: [address] [place] [address] Performed By: #### 2 4323-8, LIPNF #### [facility] CLIA [id number] [address] [place] [address] [place] Bilirubin [Mass/Vol] 0.4 mg/dL Normal 0.2-1.3 [facility] Comment on above: Order Comment: Speci men Type: BLOOD SPECIMEN Ordering Facility: [facility] Address: [address] [place] [address] Performed By: #### 2 4323-8, LIPNF #### [facility] CLIA [id number] [address] [place] [address] [place] Calcium [Mass/Vol] 9.8 mg/dL Normal 8.5-10.2 [facility] Comment on above: Order Comment: Speci men Type: BLOOD SPECIMEN Ordering Facility: [facility] Address: [address] [place] [address] Performed By: #### 2 4323-8, LIPNF #### [facility] CLIA [id number] [address] [place] [address] [place] Chloride [Moles/Vol] 100 mmol/L Normal 98-107 [facility] Comment on above: Order Comment: Speci men Type: BLOOD SPECIMEN Ordering Facility: [facility] Address: [address] [place] [address] Performed By: #### 2 4323-8, LIPNF #### [facility] CLIA [id number] [address] [place] [address] [place] CO2 [Moles/Vol] 27 mmol/L Normal 22-30 [facility] Comment on above: Order Comment: Speci men Type: BLOOD SPECIMEN Ordering Facility: [facility] Address: [address] [place] [address] Performed By: #### 2 4323-8, LIPNF #### [facility] CLIA [id number] [address] [place] [address] [place] Creatinine [Mass/Vol] 0.74 mg/dL Normal 0.58-0.96 [facility] Comment on above: Order Comment: Speci men Type: BLOOD SPECIMEN Ordering Facility: [facility] Address: [address] [place] [address] Performed By: #### 2 4323-8, LIPNF #### [facility] CLIA [id number] [address] [place] [address] [place] Creatinine and Glomerular filtration rate.predicted panel (S/P/Bld) 86 mL/min/1.73m??? Normal >=60 [facility] Comment on above: Order Comment: Speci men Type: BLOOD SPECIMEN Ordering Facility: [facility] Address: [address] [place] [address] Result Comment: Tammi mated Glomerular Filtration Rate (eGFR) is calculated using the 2020 CKD-EPI creatinine equation. This equation utilizes serum creatinine, sex, and age as parameters. The creatinine assay has traceable calibration to isotope dilution-mass spectrometry. Refer to KDIGO guidelines for clinical interpretation. In patients with unstable renal function, e.g. those with acute kidney injury, the eGFR may not accurately reflect actual GFR. Performed By: #### 2 4323-8, LIPNF #### [facility] CLIA [id number] [address] [place] [address] [place] Glucose [Mass/Vol] 76 mg/dL Normal 74-99 [facility] Comment on above: Order Comment: Speci ricardo Type: BLOOD SPECIMEN Ordering Facility: [facility] Address: [address] [place] [address] Result Comment: The [place] [employer] (ADA) provides guidance for cutoff values for fasting glucose and random glucose. The ADA defines fasting as no caloric intake for at least 8 hours. Fasting plasma glucose results between 100 to 125 mg/dL indicate increased risk for diabetes (prediabetes). Fasting plasma glucose results greater than or equal to 126 mg/dL meet the criteria for diagnosis of diabetes. In the absence of unequivocal hyperglycemia, results should be confirmed by repeat testing. In a patient with classic symptoms of hyperglycemia or hyperglycemic crisis, random plasma glucose results greater than or equal to 200 mg/dL meet the criteria for diagnosis of diabetes. Reference: Standards of Medical Care in Diabetes 2016, [place] [employer]. Diabetes Care. 2016.39(Suppl 1). Performed By: #### 2 4323-8, LIPNF #### [facility] CLIA [id number] [address] [place] [address] [place] Potassium [Moles/Vol] 4.3 mmol/L Normal 3.7-5.1 [facility] Comment on above: Order Comment: Carmela silva Type: BLOOD SPECIMEN Ordering Facility: [facility] Address: [address] [place] [address] Performed By: #### 2 4323-8, LIPNF #### [facility] CLIA [id number] [address] [place] [address] [place] Protein [Mass/Vol] 8.0 g/dL Normal 6.3-8.0 [facility] Comment on above: Order Comment: Speci men Type: BLOOD SPECIMEN Ordering Facility: [facility] Address: [address] [place] [address] Performed By: #### 2 4323-8, LIPNF #### [facility] CLIA [id number] [address] [place] [address] [place] Sodium [Moles/Vol] 140 mmol/L Normal 136-144 [facility] Comment on above: Order Comment: Speci men Type: BLOOD SPECIMEN Ordering Facility: [facility] Address: [address] [place] [address] Performed By: #### 2 4323-8, LIPNF #### [facility] CLIA [id number] [address] [place] [address] [place] Urea nitrogen [Mass/Vol] 22 mg/dL High 7-21 [facility] Comment on above: Order Comment: Speci men Type: BLOOD SPECIMEN Ordering Facility: [facility] Address: [address] [place] [address] Performed By: #### 2 4323-8, LIPNF #### [facility] CLIA [id number] [address] [place] [address] [place] LIPID PANEL, NONFASTINGon Cholesterol [Mass/Vol] 235 mg/dL High <200 [facility] Comment on above: Order Comment: Speci men Type: BLOOD SPECIMEN Ordering Facility: [facility] Address: [address] [place] [address] Result Comment: <200 mg/dL, Desirable 200-239 mg/dL, Borderline high >239 mg/dL, High Performed By: #### 2 4323-8, LIPNF #### [facility] CLIA [id number] [address] [place] [address] [place] HDL CHOLESTEROL, NF 58 mg/dL Normal >39 [facility] Comment on above: Order Comment: Carmela silva Type: BLOOD SPECIMEN Ordering Facility: [facility] Address: [address] [place] [address] Result Comment: 40-5 9 mg/dL, Acceptable >59 mg/dL, High: Negative risk factor for coronary heart disease <40 mg/dL, Low: Positive risk factor for coronary heart disease Performed By: #### 2 4323-8, LIPNF #### [facility] CLIA [id number] [address] [place] [address] LDL CHOLESTEROL, NF 144 mg/dL High <100 [facility] Comment on above: Order Comment: Carmela silva Type: BLOOD SPECIMEN Ordering Facility: [facility] Address: [address] [place] [address] Result Comment: <100 mg/dL, Optimal 100-129 mg/dL, Near optimal/above optimal 130-159 mg/dL, Borderline high 160-189 mg/dL, High >189 mg/dL, Very high Secondary prevention optimal LDL Cholesterol levels are recommended to be < 70 mg/dL Performed By: #### 2 4323-8, LIPNF #### [facility] CLIA [id number] [address] [place] [address] [place] LDL/HDL RATIO, NF 2.48 mg/dL Normal <2.54 [facility] Comment on above: Order Comment: Carmela silva Type: BLOOD SPECIMEN Ordering Facility: [facility] Address: [address] [place] [address] Result Comment: Reftaisha platace: 1. National Cholesterol Education Program ATP III Guideline At-A-Glance Quick Desk Reference: National Heart, Lung, and Blood [place]. National Institutes of Health. 2001: NIH Publication No. 01-3305. 2. An International Atherosclerosis Society position paper: global recommendations for the management of dyslipidemia: executive summary, Atherosclerosis. 2014: 232(2):410-413. Performed By: #### 2 4323-8, LIPNF #### [facility] CLIA [id number] [id number] [address] [place] NON HDL CHOL, NF 177 mg/dL High <130 [facility] Comment on above: Order Comment: Speci men Type: BLOOD SPECIMEN Ordering Facility: [facility] Address: [address] [place] [address] Result Comment: <130 mg/dL, Optimal 130-159 mg/dL, Near optimal/above optimal 160-189 mg/dL, Borderline high 190-219 mg/dL, High >219 mg/dL, Very high Secondary prevention optimal non HDL Cholesterol levels are recommended to be <100 mg/dL Performed By: #### 2 4323-8, LIPNF #### [facility] CLIA [id number] [address] [place] [address] [place] T CHOL/HDL RATIO NF 4.05 mg/dL Normal <5.10 [facility] Comment on above: Order Comment: Speci men Type: BLOOD SPECIMEN Ordering Facility: [facility] Address: [address] [place] [address] Performed By: #### 2 4323-8, LIPNF #### [facility] CLIA [id number] [address] [place] [address] [place] TRIGLYCERIDES, NF 166 mg/dL High <150 [facility] Comment on above: Order Comment: Speci men Type: BLOOD SPECIMEN Ordering Facility: [facility] Address: [address] [place] [address] Result Comment: <150 mg/dL, Normal 150-199 mg/dL, Borderline high 200-499 mg/dL, High >499 mg/dL, Very high Performed By: #### 2 4323-8, LIPNF #### [facility] CLIA [id number] [address] [place] [address] [place] VLDL CHOLESTEROL, NF 33 mg/dL High <30 [facility] Comment on above: Order Comment: Speci men Type: BLOOD SPECIMEN Ordering Facility: [facility] Address: [address] [place] [address] Performed By: #### 2 4323-8, LIPNF #### [facility] CLIA [id number] [address] [place] [address] [place] Urinalysis complete panel (U )on 08-12-2024 Bacteria LM.HPF (Urine sed) [#/Area] Negative Normal Negative [facility] Comment on above: Order Comment: Speci men Type: BLOOD SPECIMEN Ordering Facility: [facility] Address: [address] [place] [address] Performed By: #### K LFRS #### [facility] CLIA [id number] [address] [place] [address] [place] Bilirubin Ql (U) Negative Normal Negative [facility] Comment on above: Order Comment: Speci men Type: BLOOD SPECIMEN Ordering Facility: [facility] Address: [address] [place] [address] Performed By: #### K LFRS #### [facility] CLIA [id number] [address] [place] [address] [place] Clarity (Unsp spec) Clear Normal Clear [facility] Comment on above: Order Comment: Speci men Type: BLOOD SPECIMEN Ordering Facility: [facility] Address: [address] [place] [address] Performed By: #### K LFRS #### [facility] CLIA [id number] [address] [place] [address] [place] Color (U) Dark Yellow Abnormal Yellow [facility] Comment on above: Order Comment: Speci men Type: BLOOD SPECIMEN Ordering Facility: [facility] Address: [address] [place] [address] Performed By: #### K LFRS #### [facility] CLIA [id number] [address] [place] [address] [place] Epithelial cells LM.HPF (Urine sed) [#/Area] None Seen Normal [facility] Comment on above: Order Comment: Speci men Type: BLOOD SPECIMEN Ordering Facility: [facility] Address: [address] [place] [address] Performed By: #### K LFRS #### [facility] CLIA [id number] [address] [place] [address] [place] Glucose Test strip (U) [Mass/Vol] Negative Normal Negative [facility] Comment on above: Order Comment: Speci men Type: BLOOD SPECIMEN Ordering Facility: [facility] Address: [address] [place] [address] Performed By: #### K LFRS #### [facility] CLIA [id number] [address] [place] [address] [place] Hemoglobin Ql (U) Negative Normal Negative [facility] Comment on above: Order Comment: Speci men Type: BLOOD SPECIMEN Ordering Facility: [facility] Address: [address] [place] [address] Performed By: #### K LFRS #### [facility] CLIA [id number] [address] [place] [address] [place] Hyaline casts (Urine sed) [#/Area] 1-3 /LPF Abnormal 0 /LPF [facility] Comment on above: Order Comment: Speci men Type: BLOOD SPECIMEN Ordering Facility: [facility] Address: [address] [place] [address] Performed By: #### K LFRS #### [facility] CLIA [id number] [address] [place], [place] [id number] [place] Ketones Ql (U) Negative Normal Negative [facility] Comment on above: Order Comment: Speci men Type: BLOOD SPECIMEN Ordering Facility: [facility] Address: [address] [place] [address] Performed By: #### K LFRS #### [facility] CLIA [id number] [address] [place], [place] [id number] [place] Leukocyte esterase Test strip Ql (U) Negative Normal Negative [facility] Comment on above: Order Comment: Speci men Type: BLOOD SPECIMEN Ordering Facility: [facility] Address: [address] [place] [address] Performed By: #### K LFRS #### [facility] CLIA [id number] [address] [place] [address] [place] Nitrite Ql (U) Negative Normal Negative [facility] Comment on above: Order Comment: Speci men Type: BLOOD SPECIMEN Ordering Facility: [facility] Address: [address] [place] [address] Performed By: #### K LFRS #### [facility] CLIA [id number] [address] [place] [address] [place] pH (U) 6.5 [pH] Normal <8.5 [facility] Comment on above: Order Comment: Speci men Type: BLOOD SPECIMEN Ordering Facility: [facility] Address: [address] [place] [address] Performed By: #### K LFRS #### [facility] CLIA [id number] [address] [place] [address] [place] Protein (U) [Mass/Vol] Trace Abnormal Negative [facility] Comment on above: Order Comment: Speci men Type: BLOOD SPECIMEN Ordering Facility: [facility] Address: [address] [place] [address] Performed By: #### K LFRS #### [facility] CLIA [id number] [address] [place] [address] [place] RBC LM.HPF (Urine sed) [#/Area] 0-2 /HPF Normal 0-2 /HPF [facility] Comment on above: Order Comment: Speci men Type: BLOOD SPECIMEN Ordering Facility: [facility] Address: [address] [place] [address] Performed By: #### K LFRS #### [facility] CLIA [id number] [address] [place] [address] [place] Specific gravity (U) [Rel density] 1.025 Normal 1.005-1.030 [facility] Comment on above: Order Comment: Speci men Type: BLOOD SPECIMEN Ordering Facility: [facility] Address: [address] [place] [address] Performed By: #### K LFRS #### [facility] CLIA [id number] [address] [place] [address] Urobilinogen Ql (U) 0.2 EU/dL Normal 0.2-1.0 EU/dL [facility] Comment on above: Order Comment: Speci men Type: BLOOD SPECIMEN Ordering Facility: [facility] Address: [address] [place] [address] Performed By: #### K LFRS #### [facility] CLIA [id number] [address] [place] [address] WBC LM.HPF (Urine sed) [#/Area] 0-5 /HPF Normal 0-5 /HPF [facility] Comment on above: Order Comment: Speci men Type: BLOOD SPECIMEN Ordering Facility: [facility] Address: [address] [place] [address] Performed By: #### K LFRS #### [facility] CLIA [id number] [address] [place] [address] [place] CNOVon 06-30-2024 CNOV Office Visit (PULMWS ) LUPIS BRITO ([id number]) 1950 F Date Time Provider Department 06/30/24 10:00 AM ALONA CRUZ PULMWS During your visit today, we recorded the following information about you: Pulse Respiration Weight 50/minute 16/minute 59 kg Alona Cruz MD 06/30/2024 12:43 PM Signed . [facility]piratory [place] Note Patient name: Lupis Brito PCP: Tacos Hein MD CC: Asthma HPI: Lupis Brito 74 year old female never smoker with PMH significant for asthma (positive JEREMIAH), allergic rhinitis, fibromyalgia, osteoporosis presenting for follow-up. Current therapy with Arnuity and as needed albuterol. From a respiratory standpoint she has been doing well. No cough, wheezing, chest pain or shortness of breath. However, she has had significant dysphonia unable to sing in her [employer]. She had previously been on Qvar with good control of her symptoms and no significant vocal issues but insurance deemed change. No thrush or sore throat. She has not been ill with any upper respiratory infections or ED visits. Rare need for her albuterol inhaler. DATA: ASTHMA CONTROL TEST Date: 06/30/2024 In the last 4 weeks, how much of the time did your asthma keep you from getting as much done at work or home that you wanted to do? None of the time (5) In the last 4 weeks, how often have you had shortness of breath? Not at all (5) In the last 4 weeks, how often did your asthma symptoms (wheezing, coughing, shortness of breath, chest tightness or pain) wake you up at night or earlier than usual? Not at all (5) In the last 4 weeks, how often have you used your rescue inhaler or nebulizer medication (such as Albuterol, Proventil, Ventolin, Maxair, Xoponex, or Primatene Mist)? Once a week or less (4) In the last 4 weeks, how would you rate your asthma control? Completely controlled (5) Total: more than 20 PAST MEDICAL HISTORY Diagnosis Date Acute gastritis [...] Boniva [Ibandronate] GI Upset Increase in GERD Doxycycline Other: See Comments Accelerated heart rate Fosamax [Alendronat* GI Upset Increase heartburn/GI Mold Other: See Comments Nasal/sinus Penicillins Unknown Pollen Extracts Other: See Comments Nasal/sinus Sulfa (Sulfonamide * Unknown beclomethasone (QVAR REDIHALER) 40 mcg/actuation inhaler Inhale 2 Puffs as instructed two times a day. gabapentin (NEURONTIN) 300 mg capsule Take 1 capsule by mouth two times a day for 180 days. meloxicam (MOBIC) 7.5 mg tablet Take 1 tablet by mouth once daily. fluticasone furoate (ARNUITY ELLIPTA) 100 mcg/actuation inhaler Inhale 1 Puff as instructed once daily. montelukast (SINGULAIR) 10 mg tablet Take 1 tablet by mouth daily at bedtime. fluticasone (FLONASE) 50 mcg/actuation nasal spray instill 2 sprays into each nostril once daily denosumab (PROLIA) 60 mg/mL 1 milliliter subcutaneously every 6 months. calcium carbonate (CALCIUM 300 ORAL) Take by mouth once daily. albuterol HFA (VENTOLIN HFA) 90 mcg/actuation inhaler Inhale 2 Puffs as instructed every 4 hours as needed for wheezing/shortness of breath. MELATONIN ORAL Take by mouth as directed. VITAMIN B COMPLEX ORAL Take by mouth. L.ACID/L.CASEI/B.BIF/ B.ROBIN/FOS (PROBIOTIC BLEND ORAL) Take by mouth. folic acid 800 mcg ORAL Tab Take one(1) tablet daily. DAILY MULTIVITAMIN TAB Take one(1) tablet daily. Social History Tobacco Use Smoking status: Never Smokeless tobacco: Never Vaping Use Vaping status: Never Used Substance Use Topics Alcohol use: Yes Comment: occasionally Drug use: No PMH, Social history, family history and surgical history reviewed and updated in EMR REVIEW OF SYSTEMS: CONSTITUTIONAL: No fevers, chills, nightsweats, unintended weight loss HEENT: Denies nasal congestion/sinus symptoms, current allergy problems. EYES: No diplopia or blurry vision. CARDIOVASCULAR: No chest pain, dyspn (more content not included)... Normal [facility] CNNURSEon 04-06-2024 [facility] Nurse Visit (FAMPWS) LUPIS BRITO ([id number]) 1950 F Date Time Provider Department 04/06/24 9:00 AM [place] [facility] During your visit today, we recorded the following information about you: Susanne West LPN 04/06/2024 9:20 AM Signed Patient presents for Prolia injection. Denies any problems at this time. Brought own medication. Patient instructed on any SE of medication, verbalized understanding and agreed to proceed with treatment. Tolerated injection well. Susanne West LPN Allergies As of Date: 04/06/2024 Noted Allergy Reaction CLINDAMYCIN 02/21/2023 2 - Rash BONIVA (IBANDRONATE) 07/09/2022 8 - GI Upset Comments: Increase in GERD DOXYCYCLINE 02/01/2024 14 - Other: See Comments Comments: Accelerated heart rate FOSAMAX (ALENDRONATE) 07/09/2022 8 - GI Upset Comments: Increase heartburn/GI MOLD 02/09/2019 14 - Other: See Comments Comments: Nasal/sinus PENICILLINS 08/20/2004 16 - Unknown POLLEN EXTRACTS 02/09/2019 14 - Other: See Comments Comments: Nasal/sinus SULFA (SULFONAMIDE ANTIBIOTICS) 08/20/2004 16 - Unknown Date Reviewed: 02/20/2024 Reviewed by: Tacos Hein MD - Fully Assessed Reason for Visit: Imm/Inj [58] Primary Visit Diagnosis:Osteoporosi s, unspecified osteoporosis type, unspecified pathological fracture presence [M81.0] Prescriptions as of 04/06/2024 - meloxicam (MOBIC) 7.5 mg tablet Take 1 tablet by mouth once daily. - fluticasone furoate (ARNUITY ELLIPTA) 100 mcg/actuation inhaler Inhale 1 Puff as instructed once daily. - fluticasone (FLONASE) 50 mcg/actuation nasal spray instill 2 sprays into each nostril once daily - gabapentin (NEURONTIN) 300 mg capsule Take 1 capsule by mouth two times a day for 180 days. - denosumab (PROLIA) 60 mg/mL 1 milliliter subcutaneously every 6 months. - montelukast (SINGULAIR) 10 mg tablet Take 1 tablet by mouth daily at bedtime. - calcium carbonate (CALCIUM 300 ORAL) Take by mouth once daily. - albuterol HFA (VENTOLIN HFA) 90 mcg/actuation inhaler Inhale 2 Puffs as instructed every 4 hours as needed for wheezing/shortness of breath. - MELATONIN ORAL Take by mouth as directed. - VITAMIN B COMPLEX ORAL Take by mouth. - L.ACID/L.CASEI/B.BIF/ B.ROBIN/FOS (PROBIOTIC BLEND ORAL) Take by mouth. - folic acid 800 mcg ORAL Tab Take one(1) tablet daily. - DAILY MULTIVITAMIN TAB Take one(1) tablet daily. Problem List As Of Date 04/06/2024 Noted Resolved BURSITIS NEC [M71.50] 08/20/2004 10/18/2004 Acute gastritis without mention of hemorrhage [*01/03/2008 01/01/2015 Osteoporosis [M81.0] 12/10/2009 Vitamin D deficiency [E55.9] 12/12/2009 Restless leg syndrome [G25.81] 03/25/2010 Lumbar degenerative disc disease [M51.36] 12/16/2010 Postmenopausal atrophic vaginitis [N95.2] 11/03/2012 Intrinsic asthma [J45.909] 10/31/2014 12/01/2023 Insomnia [G47.00] 03/26/2015 Inflammatory arthritis [M19.90] 03/26/2015 Psoriasis of nail [L40.9] 03/26/2015 Arthritis of both hips [M16.0] 08/23/2015 Fibromyalgia [M79.7] 08/23/2015 Spinal stenosis of lumbar region with radiculop*10/09/2016 Screening for colon cancer [Z12.11] 01/21/2021 Medication management [Z79.899] 01/21/2021 Dyslipidemia [E78.5] 01/22/2021 Medicare annual wellness visit, subsequent [Z00*08/14/[address] [Z78.9] 08/15/2022 Advance directive discussed with patient [Z71.8*08/15/2022 Mild intermittent asthma without complication [*12/01/2023 Encounter Status:Closed by SUSANNE WEST [facility]06[facility] (FAMWS[facility] LUPIS BRITO ([id number]) 1950 F Date Time Provider Department 02/17/24 TACOS HEIN [facility] During your visit today, we recorded the following information about you: Tacos Hein MD 02/17/2024 1:20 AM Signed Let patient know her lipid panel showed Trigs ok at 143, HDL very good ay 83 and LDL elevated at 152 (goal<130). Her 10 year risk for a heart attack or stroke is only 9%. However is interested we can start a lipid lowering medication to reduce this. Otherwise working on less fat/chol in the diet can help along with moderate exercise. Her other labs were ok. Jeannie Pool MA 02/17/2024 8:18 AM Signed Patient notified and results. She works out 5 days a week. No sure what foods would be good or not good. Mailed cholesterol food guideline. She would like to go that route first. Jeannie Pool MA Allergies As of Date: 02/17/2024 Noted Allergy Reaction CLINDAMYCIN 02/21/2023 2 - Rash BONIVA (IBANDRONATE) 07/09/2022 8 - GI Upset Comments: Increase in GERD DOXYCYCLINE 02/01/2024 14 - Other: See Comments Comments: Accelerated heart rate FOSAMAX (ALENDRONATE) 07/09/2022 8 - GI Upset Comments: Increase heartburn/GI MOLD 02/09/2019 14 - Other: See Comments Comments: Nasal/sinus PENICILLINS 08/20/2004 16 - Unknown POLLEN EXTRACTS 02/09/2019 14 - Other: See Comments Comments: Nasal/sinus SULFA (SULFONAMIDE ANTIBIOTICS) 08/20/2004 16 - Unknown Date Reviewed: 12/01/2023 Reviewed by: Alona Cruz MD - Fully Assessed Reason for Visit: Results [95] Prescriptions as of 02/17/2024 - fluticasone (FLONASE) 50 mcg/actuation nasal spray instill 2 sprays into each nostril once daily - gabapentin (NEURONTIN) 300 mg capsule Take 1 capsule by mouth two times a day for 180 days. - denosumab (PROLIA) 60 mg/mL 1 milliliter subcutaneously every 6 months. - fluticasone furoate (ARNUITY ELLIPTA) 100 mcg/actuation inhaler Inhale 1 Puff as instructed once daily. - meloxicam (MOBIC) 7.5 mg tablet Take 1 tablet by mouth once daily. - montelukast (SINGULAIR) 10 mg tablet Take 1 tablet by mouth daily at bedtime. - calcium carbonate (CALCIUM 300 ORAL) Take by mouth once daily. - albuterol HFA (VENTOLIN HFA) 90 mcg/actuation inhaler Inhale 2 Puffs as instructed every 4 hours as needed for wheezing/shortness of breath. - MELATONIN ORAL Take by mouth as directed. - VITAMIN B COMPLEX ORAL Take by mouth. - L.ACID/L.CASEI/B.BIF/ B.ROBIN/FOS (PROBIOTIC BLEND ORAL) Take by mouth. - folic acid 800 mcg ORAL Tab Take one(1) tablet daily. - DAILY MULTIVITAMIN TAB Take one(1) tablet daily. Facility-Administered Medications as of 02/17/2024 - denosumab 60 mg injection (PROLIA) Problem List As Of Date 02/17/2024 Noted Resolved BURSITIS NEC [M71.50] 08/20/2004 10/18/2004 Acute gastritis without mention of hemorrhage [*01/03/2008 01/01/2015 Osteoporosis [M81.0] 12/10/2009 Vitamin D deficiency [E55.9] 12/12/2009 Restless leg syndrome [G25.81] 03/25/2010 Lumbar degenerative disc disease [M51.36] 12/16/2010 Postmenopausal atrophic vaginitis [N95.2] 11/03/2012 Intrinsic asthma [J45.909] 10/31/2014 12/01/2023 Insomnia [G47.00] 03/26/2015 Inflammatory arthritis [M19.90] 03/26/2015 Psoriasis of nail [L40.9] 03/26/2015 Arthritis of both hips [M16.0] 08/23/2015 Fibromyalgia [M79.7] 08/23/2015 Spinal stenosis of lumbar region with radiculop*10/09/2016 Screening for colon cancer [Z12.11] 01/21/2021 Medication management [Z79.899] 01/21/2021 Dyslipidemia [E78.5] 01/22/2021 Medicare annual wellness visit, subsequent [Z00*08/14/[address] [Z78.9] 08/15/2022 Advance directive discussed with patient [Z71.8*08/15/2022 Mild intermittent asthma without complication [*12/01/2023 Encounter Status:Closed by JEANNIE POOL on 02/17/24 Normal [facility] Comprehensive metabolic 2000 panelon 02-13-2024 Albumin [Mass/Vol] 4.7 g/dL 3.9 - 4.9 g/dL [facility] ALP [Catalytic activity/Vol] 47 U/L 34 - 123 U/L [facility] ALT [Catalytic activity/Vol] 16 U/L 7 - 38 U/L [facility] Anion gap [Moles/Vol] 13 mmol/L 8 - 15 mmol/L [facility] AST [Catalytic activity/Vol] 26 U/L 13 - 35 U/L [facility] Bilirubin [Mass/Vol] 0.6 mg/dL 0.2 - 1 .3 mg/dL [facility] Calcium [Mass/Vol] 9.7 mg/dL 8.5 - 10. 2 mg/dL [facility] Chloride [Moles/Vol] 101 mmol/L 98 - 10 7 mmol/L [facility] CO2 [Moles/Vol] 24 mmol/L 22 - 30 mmol/L [facility] Creatinine [Mass/Vol] 0.70 mg/dL 0.58 - 0.96 mg/dL [facility] GFR/1.73 sq M.predicted among non-blacks MDRD (S/P/Bld) [Vol rate/Area] 92 mL/min/{1.73_m2} - PINF [facility] Comment on above: Estimated Glomerular Filtration Rate (eGFR) is calculated using the 2020 CKD-EPI creatinine equation. This equation utilizes serum creatinine, sex, and age as parameters. The creatinine assay has traceable calibration to isotope dilution-mass spectrometry. Refer to KDIGO guidelines for clinical interpretation. In patients with unstable renal function, e.g. those with acute kidney injury, the eGFR may not accurately reflect actual GFR. Glucose [Mass/Vol] 97 mg/dL 74 - 99 mg/dL [facility] Comment on above: The [place] Diabete s Association (ADA) provides guidance for cutoff values for fasting glucose and random glucose. The ADA defines fasting as no caloric intake for at least 8 hours. Fasting plasma glucose results between 100 to 125 mg/dL indicate increased risk for diabetes (prediabetes). Fasting plasma glucose results greater than or equal to 126 mg/dL meet the criteria for diagnosis of diabetes. In the absence of unequivocal hyperglycemia, results should be confirmed by repeat testing. In a patient with classic symptoms of hyperglycemia or hyperglycemic crisis, random plasma glucose results greater than or equal to 200 mg/dL meet the criteria for diagnosis of diabetes. Reference: Standards of Medical Care in Diabetes 2016, [place] Diabetes Association. Diabetes Care. 2016.39(Suppl 1). Potassium [Moles/Vol] 4.0 mmol/L 3.7 - 5.1 mmol/L [facility] Protein [Mass/Vol] 7.8 g/dL 6.3 - 8.0 g/dL [facility] Sodium [Moles/Vol] 138 mmol/L 136 - 144 mmol/L [facility] Urea nitrogen [Mass/Vol] 20 mg/dL 7 - 21 mg/dL [facility] LIPID PANEL, NONFASTINGon Cholesterol [Mass/Vol] 264 mg/dL High NINF - 200 mg/dL [facility] Comment on above: <200 mg/dL, Desirabl e 200-239 mg/dL, Borderline high >239 mg/dL, High HDL Cholesterol, Nonfasting 83 mg/dL 39 - PINF mg/dL [facility] Comment on above: 40-59 mg/dL, Accepta ble >59 mg/dL, High: Negative risk factor for coronary heart disease <40 mg/dL, Low: Positive risk factor for coronary heart disease Interpretation and review of laboratory results Abnormal [facility] LDL Cholesterol, Nonfasting 152 mg/dL High NINF - 100 mg/dL [facility] Comment on above: <100 mg/dL, Optimal 100-129 mg/dL, Near optimal/above optimal 130-159 mg/dL, Borderline high 160-189 mg/dL, High >189 mg/dL, Very high Secondary prevention optimal LDL Cholesterol levels are recommended to be < 70 mg/dL LDL/HDL Ratio, Nonfasting 1.83 mg/dL NINF - 2.54 mg/dL [facility] Comment on above: Reference: 1. National Cholesterol Education Program ATP III Guideline At-A-Glance Quick Desk Reference: National Heart, Lung, and Blood [place]. National Institutes of Health. 2001: NIH Publication No. 01-3305. 2. An International Atherosclerosis Society position paper: global recommendations for the management of dyslipidemia: executive summary, Atherosclerosis. 2014: 232(2):410-413. Non HDL Cholesterol, Nonfasting 181 mg/dL High NINF - 130 mg/dL [facility] Comment on above: <130 mg/dL, Optimal 130-159 mg/dL, Near optimal/above optimal 160-189 mg/dL, Borderline high 190-219 mg/dL, High >219 mg/dL, Very high Secondary prevention optimal non HDL Cholesterol levels are recommended to be <100 mg/dL Total Chol/HDL Ratio, Nonfasting 3.18 mg/dL NINF - 5.10 mg/dL [facility] Triglycerides, Nonfasting 143 mg/dL NINF - 150 mg/dL [facility] Comment on above: <150 mg/dL, Normal 150-199 mg/dL, Borderline high 200-499 mg/dL, High >499 mg/dL, Very high VLDL Cholesterol, Nonfasting 29 mg/dL NINF - 30 mg/dL [facility] No Panel Informationon 02-12 Interpretation and review of laboratory results Normal [facility] T3, FREEon 02-13-2024 Free T3 [Mass/Vol] 2.9 pg/mL 2.3 - 4.1 pg/mL [facility] T4 FREE/FREE THYROXINEon Free T4 [Mass/Vol] 1.2 ng/dL 0.9 - 1.7 ng/dL [facility] THYROID STIMULATING HORMONEo n 02-13-2024 TSH Qn 1.440 m[IU]/L [facility] TSH Qnon 02-13-2024 Interpretation and review of laboratory results Normal [facility] CNOVon 02-12-2024 CNOV Office Visit (FAMPWS ) LUPIS BRITO ([id number]) 1950 F Date Time Provider Department 02/12/24 2:00 PM [facility] During your visit today, we recorded the following information about you: Pulse Respiration Blood pressure Weight 60/minute 14/minute 112/80 59.4 kg Tacos Hein MD 02/21/2024 1:33 PM Addendum Chief Complaint Patient presents with: Hospital Follow Up HPI Lupis Brito is a 74 year old female who presents here today for Hospital Discharge Follow up.. Patient was admitted to [facility] on on for chest tightness, nausea and Palpitations. There was concern for accelerated Idioventricular junctional rhythm. Overnight monitor showed sinus rhythm and regular. Echocardiogram showed normal ejection fraction. The tachycardia rhythm was considered a side effect of the doxycycline. 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 Patient is to follow up with instruction assistant principal regarding changing of medication. Since discharge she has not had any plpations and her watch has not warned her of any. No shortness of breath or chest pain. No leg swelling. In the hospital her TSH was elevated at 4.95. patient has no Hx of thyroid issues. No FHx of thyroid issues. Past medical history, appointments, medications, allergies reviewed. [...] irregular heart beat. Asthma No Family History Coronary Artery Disease No Family History Patient Allergies ALLERGIES Allergen Reactions Clindamycin Rash Boniva [Ibandronate] GI Upset Increase in GERD Doxycycline Other: See Comments Accelerated heart rate Fosamax [Alendronat* GI Upset Increase heartburn/GI Mold Other: See Comments Nasal/sinus Penicillins Unknown Pollen Extracts Other: See Comments Nasal/sinus Sulfa (Sulfonamide * Unknown Current Medications Current Outpatient Medications on File Prior to Visit Medication Sig fluticasone (FLONASE) 50 mcg/actuation nasal spray instill 2 sprays into each nostril once daily gabapentin (NEURONTIN) 300 mg capsule Take 1 capsule by mouth two times a day for 180 days. denosumab (PROLIA) 60 mg/mL 1 milliliter subcutaneously every 6 months. fluticasone furoate (ARNUITY ELLIPTA) 100 mcg/actuation inhaler Inhale 1 Puff as instructed once daily. meloxicam (MOBIC) 7.5 mg tablet Take 1 tablet by mouth once daily. montelukast (SINGULAIR) 10 mg tablet Take 1 tablet by mouth daily at bedtime. calcium carbonate (CALCIUM 300 ORAL) Take by mouth once daily. albuterol HFA (VENTOLIN HFA) 90 mcg/actuation inhaler Inhale 2 Puffs as instructed every 4 hours as needed for wheezing/shortness of breath. MELATONIN ORAL Take by mouth as directed. VITAMIN B COMPLEX ORAL Take by mouth. L.ACID/L.CASEI/B.BIF/ B.ROBIN/FOS (PROBIOTIC BLEND ORAL) Take by mouth. folic [...] No Review of Symptoms REVIEW OF SYSTEMS See HPI EXAM: BP 112/80 (BP Site: Left Arm, BP Position: Sitting, BP Cuff Size: Regular (more content not included)... Normal [facility] Comprehensive metabolic 2000 panelon 02-12-2024 Albumin [Mass/Vol] 4.7 g/dL Normal 3.9-4.9 [facility] Comment on above: Order Comment: Speci men Type: BLOOD SPECIMEN Ordering Facility: [facility] Address: [address] [place] [address] Performed By: #### 3 051-0, 3024-7, 66904-3, LIPNF #### [facility] CLIA [id number] [address] [place] [address] [place] ALP [Catalytic activity/Vol] 47 U/L Normal 34-123 [facility] Comment on above: Order Comment: Speci men Type: BLOOD SPECIMEN Ordering Facility: [facility] Address: [address] [place] [address] Performed By: #### 3 051-0, 3023-7, 60206-7, LIPNF #### [facility] CLIA [id number] [address] [place] [address] [place] ALT [Catalytic activity/Vol] 16 U/L Normal 7-38 [facility] Comment on above: Order Comment: Speci men Type: BLOOD SPECIMEN Ordering Facility: [facility] Address: [address] [place] [address] Performed By: #### 3 051-0, 3023-7, 69707-6, LIPNF #### [facility] CLIA [id number] [address] [place] [address] [place] Anion gap [Moles/Vol] 13 mmol/L Normal 8-15 [facility] Comment on above: Order Comment: Speci men Type: BLOOD SPECIMEN Ordering Facility: [facility] Address: [address] [place] [address] Performed By: #### 3 051-0, 7, 93660-6, LIPNF #### [facility] CLIA [id number] [address] [place] [address] [place] AST [Catalytic activity/Vol] 26 U/L Normal 13-35 [facility] Comment on above: Order Comment: Speci men Type: BLOOD SPECIMEN Ordering Facility: [facility] Address: [address] [place] [address] Performed By: #### 3 051-0, 7, 15869-0, LIPNF #### [facility] CLIA [id number] [address] [place] [address] [place] Bilirubin [Mass/Vol] 0.6 mg/dL Normal 0.2-1.3 [facility] Comment on above: Order Comment: Speci men Type: BLOOD SPECIMEN Ordering Facility: [facility] Address: [address] [place] [address] Performed By: #### 3 051-0, 7, 29069-4, LIPNF #### [facility] CLIA [id number] [address] [place] [address] [place] Calcium [Mass/Vol] 9.7 mg/dL Normal 8.5-10.2 [facility] Comment on above: Order Comment: Speci men Type: BLOOD SPECIMEN Ordering Facility: [facility] Address: [address] [place] [address] Performed By: #### 3 051-0, 7, 04228-0, LIPNF #### [facility] CLIA [id number] [address] [place] [address] [place] Chloride [Moles/Vol] 101 mmol/L Normal 98-107 [facility] Comment on above: Order Comment: Speci men Type: BLOOD SPECIMEN Ordering Facility: [facility] Address: [address] [place] [address] Performed By: #### 3 051-0, 3024-01, , LIPNF #### [facility] CLIA [id number] [address] [place] [address] [place] CO2 [Moles/Vol] 24 mmol/L Normal 22-30 [facility] Comment on above: Order Comment: Speci men Type: BLOOD SPECIMEN Ordering Facility: [facility] Address: [address] [place] [address] Performed By: #### 3 051-0, 3024-01, , LIPNF #### [facility] CLIA [id number] [address] [place] [address] [place] Creatinine [Mass/Vol] 0.70 mg/dL Normal 0.58-0.96 [facility] Comment on above: Order Comment: Speci men Type: BLOOD SPECIMEN Ordering Facility: [facility] Address: [address] [place] [address] Performed By: #### 3 051-0, 3024-01, , LIPNF #### [facility] CLIA [id number] [address] [place] [address] [place] Creatinine and Glomerular filtration rate.predicted panel (S/P/Bld) 92 mL/min/1.73m??? Normal >=60 [facility] Comment on above: Order Comment: Carmela silva Type: BLOOD SPECIMEN Ordering Facility: [facility] Address: [address] [place] [address] Result Comment: Tammi mated Glomerular Filtration Rate (eGFR) is calculated using the 2020 CKD-EPI creatinine equation. This equation utilizes serum creatinine, sex, and age as parameters. The creatinine assay has traceable calibration to isotope dilution-mass spectrometry. Refer to KDIGO guidelines for clinical interpretation. In patients with unstable renal function, e.g. those with acute kidney injury, the eGFR may not accurately reflect actual GFR. Performed By: #### 3 051-0, 3024-7, 32917-0, LIPNF #### [facility] CLIA [id number] [address] [place] [address] [place] Glucose [Mass/Vol] 97 mg/dL Normal 74-99 [facility] Comment on above: Order Comment: Carmela silva Type: BLOOD SPECIMEN Ordering Facility: [facility] Address: [address] [place] [address] Result Comment: The [place] Diabetes Association (ADA) provides guidance for cutoff values for fasting glucose and random glucose. The ADA defines fasting as no caloric intake for at least 8 hours. Fasting plasma glucose results between 100 to 125 mg/dL indicate increased risk for diabetes (prediabetes). Fasting plasma glucose results greater than or equal to 126 mg/dL meet the criteria for diagnosis of diabetes. In the absence of unequivocal hyperglycemia, results should be confirmed by repeat testing. In a patient with classic symptoms of hyperglycemia or hyperglycemic crisis, random plasma glucose results greater than or equal to 200 mg/dL meet the criteria for diagnosis of diabetes. Reference: Standards of Medical Care in Diabetes 2016, [place] [employer] Association. Diabetes Care. 2016.39(Suppl 1). Performed By: #### 3 051-0, 3024-7, 31500-2, LIPNF #### [facility] CLIA [id number] [address] [place] [address] [place] Potassium [Moles/Vol] 4.0 mmol/L Normal 3.7-5.1 [facility] Comment on above: Order Comment: Speci men Type: BLOOD SPECIMEN Ordering Facility: [facility] Address: [address] [place] [address] Performed By: #### 3 051-0, 3024-01, , LIPNF #### [facility] CLIA [id number] [address] [place] [address] [place] Protein [Mass/Vol] 7.8 g/dL Normal 6.3-8.0 [facility] Comment on above: Order Comment: Speci men Type: BLOOD SPECIMEN Ordering Facility: [facility] Address: [address] [place] [address] Performed By: #### 3 051-0, 3024-01, , LIPNF #### [facility] CLIA [id number] [address] [place] [address] [place] Sodium [Moles/Vol] 138 mmol/L Normal 136-144 [facility] Comment on above: Order Comment: Speci men Type: BLOOD SPECIMEN Ordering Facility: [facility] Address: [address] [place] [address] Performed By: #### 3 051-0, 3024-01, , LIPNF #### [facility] CLIA [id number] [address] [place], [place] [id number] [place] Urea nitrogen [Mass/Vol] 20 mg/dL Normal 7-21 [facility] Comment on above: Order Comment: Speci men Type: BLOOD SPECIMEN Ordering Facility: [facility] Address: [address] [place] [address] Performed By: #### 3 051-0, 3024-01, , LIPNF #### [facility] CLIA [id number] [facility] [place] [address] [place] LIPID PANEL, NONFASTINGon Cholesterol [Mass/Vol] 264 mg/dL High <200 [facility] Comment on above: Order Comment: Speci men Type: BLOOD SPECIMEN Ordering Facility: [facility] Address: [address] [place] [address] Result Comment: <200 mg/dL, Desirable 200-239 mg/dL, Borderline high >239 mg/dL, High Performed By: #### 3 051-0, 3024-7, 43774-7, LIPNF #### [facility] CLIA [id number] [address] [place] [address] [place] HDL CHOLESTEROL, NF 83 mg/dL Normal >39 [facility] Comment on above: Order Comment: Speci men Type: BLOOD SPECIMEN Ordering Facility: [facility] Address: [address] [place] [address] Result Comment: 40-5 9 mg/dL, Acceptable >59 mg/dL, High: Negative risk factor for coronary heart disease <40 mg/dL, Low: Positive risk factor for coronary heart disease Performed By: #### 3 051-0, 302-7, 90012-5, LIPNF #### [facility] CLIA [id number] [address] [place] [address] [place] LDL CHOLESTEROL, NF 152 mg/dL High <100 [facility] Comment on above: Order Comment: Speci men Type: BLOOD SPECIMEN Ordering Facility: [facility] Address: [address] [place] [address] Result Comment: <100 mg/dL, Optimal 100-129 mg/dL, Near optimal/above optimal 130-159 mg/dL, Borderline high 160-189 mg/dL, High >189 mg/dL, Very high Secondary prevention optimal LDL Cholesterol levels are recommended to be < 70 mg/dL Performed By: #### 3 051-0, 3024-7, 30684-9, LIPNF #### [facility] CLIA [id number] [address] [place] [address] [place] LDL/HDL RATIO, NF 1.83 mg/dL Normal <2.54 [facility] Comment on above: Order Comment: Carmela silva Type: BLOOD SPECIMEN Ordering Facility: [facility] Address: [address] [place] [address] Result Comment: Refe bonice: 1. National Cholesterol Education Program ATP III Guideline At-A-Glance Quick Desk Reference: National Heart, Lung, and Blood [place]. National Institutes of Health. 2001: NIH Publication No. 01-3305. 2. An International Atherosclerosis Society position paper: global recommendations for the management of dyslipidemia: executive summary, Atherosclerosis. 2014: 232(2):410-413. Performed By: #### 3 051-0, 3024-7, 14348-9, LIPNF #### [facility] CLIA [id number] [address] [place] [address] [place] NON HDL CHOL, NF 181 mg/dL High <130 [facility] Comment on above: Order Comment: Carmela silva Type: BLOOD SPECIMEN Ordering Facility: [facility] Address: [address] [place] [address] Result Comment: <130 mg/dL, Optimal 130-159 mg/dL, Near optimal/above optimal 160-189 mg/dL, Borderline high 190-219 mg/dL, High >219 mg/dL, Very high Secondary prevention optimal non HDL Cholesterol levels are recommended to be <100 mg/dL Performed By: #### 3 051-0, 3024-7, 46472-4, LIPNF #### [facility] CLIA [id number] [address] [place] [address] [place] T CHOL/HDL RATIO NF 3.18 mg/dL Normal <5.10 [facility] Comment on above: Order Comment: Carmela silva Type: BLOOD SPECIMEN Ordering Facility: [facility] Address: [address] [place] [address] Performed By: #### 3 051-0, 3024-7, 91543-9, LIPNF #### [facility] CLIA [id number] [address] [place] [address] [place] TRIGLYCERIDES, NF 143 mg/dL Normal <150 [facility] Comment on above: Order Comment: Speci men Type: BLOOD SPECIMEN Ordering Facility: [facility] Address: [address] [place] [address] Result Comment: <150 mg/dL, Normal 150-199 mg/dL, Borderline high 200-499 mg/dL, High >499 mg/dL, Very high Performed By: #### 3 051-0, 3024-7, 81243-6, LIPNF #### [facility] CLIA [id number] [address] [place] [address] [place] VLDL CHOLESTEROL, NF 29 mg/dL Normal <30 [facility] Comment on above: Order Comment: Speci men Type: BLOOD SPECIMEN Ordering Facility: [facility] Address: [address] [place] [address] Performed By: #### 3 051-0, 3024-7, 52491-8, LIPNF #### [facility] CLIA [id number] [address] [place] [address] [place] T3Free SerPl-mCncon 20 24 Free T3 [Mass/Vol] 2.9 pg/mL Normal 2.3-4.1 [facility] Comment on above: Order Comment: Speci men Type: BLOOD SPECIMENOrdering Facility: [facility] Address: [address] [place] [address] Performed By: #### 3 051-0, 3024-7, 09085-4, LIPNF ####[facility] [id number] [place] [address] [place] T4 Free SerPl-mCncon 02-11-2 024 Free T4 [Mass/Vol] 1.2 ng/dL Normal 0.9-1.7 [facility] Comment on above: Order Comment: Speci men Type: BLOOD SPECIMENOrdering Facility: [facility] Address: [address] [place] [address] Performed By: #### 3 051-0, 3024-7, 43796-0, LIPNF ####[facility] [id number] [facility] [place] [address] [place] TSH SerPl-aCncon 02-12-2024 TSH Qn 1.440 m[IU]/L Normal 0.270-4.200 [facility] Comment on above: Order Comment: Speci men Type: BLOOD SPECIMEN Ordering Facility: [facility] Address: [address] [place] [address] Performed By: #### 3 016-3 #### [facility] CLIA [id number] [address] [place], [place] [address] [place] [address] [place] Basic Metabolic Profile (BMP )on 01-29-2024 BUN/CRE 33.2 RATIO High 10-20 [facility] Comment on above: Order Comment: 1Y Performed By: #### L 500.2500, L100.0100, L501.9520, L501.5425, L500.3400 ####[facility] [address] [facility] [address] [place],Total 9.4 mg/dL Normal 8.5-10.1 [facility] Comment on above: Order Comment: 1Y Performed By: #### L 500.2500, L100.0100, L501.9520, L501.5425, L500.3400 ####[facility] [address] [place], [address] Chloride [Moles/Vol] 105 mmol/L Normal 98-107 [facility] Comment on above: Order Comment: 1Y Performed By: #### L 500.2500, L100.0100, L501.9520, L501.5425, L500.3400 ####[facility] [address] [place], [address] CO2 [Moles/Vol] 25.0 mmol/L Normal 21.0-32.0 [facility] Comment on above: Order Comment: 1Y Performed By: #### L 500.2500, L100.0100, L501.9520, L501.5425, L500.3400 ####[facility] [address] [place], [address] Creatinine [Mass/Vol] 0.81 mg/dL Normal 0.55-1.02 [facility] Comment on above: Order Comment: 1Y Result Comment: The validity of the calculated GFR GFRAA in patients over 70 years has not been determined. Clinical correlation is essential. Performed By: #### L 500.2500, L100.0100, L501.9520, L501.5425, L500.3400 ####[facility] [address] [place], [address] ECRCL 55.01 ml/min Normal [facility] Comment on above: Order Comment: 1Y Performed By: #### L 500.2500, L100.0100, L501.9520, L501.5425, L500.3400 ####[facility] [address] [place], [address] EST GFR - AA 89 mL/min Normal >60 [facility] Comment on above: Order Comment: 1Y Result Comment: Afri can [place] GFR Calc Performed By: #### L 500.2500, L100.0100, L501.9520, L501.5425, L500.3400 ####[facility] [address] [place], [address] GAP 10 Normal 5-15 [facility] Comment on above: Order Comment: 1Y Performed By: #### L 500.2500, L100.0100, L501.9520, L501.5425, L500.3400 ####[facility] [address] [place], [address] GFR/1.73 sq M.predicted among non-blacks MDRD (S/P/Bld) [Vol rate/Area] 74 mL/min/{1.73_m2} Normal >60 [facility] Comment on above: Order Comment: 1Y Result Comment: Non- GFR Calc Performed By: #### L 500.2500, L100.0100, L501.9520, L501.5425, L500.3400 ####[facility] [address] [place], [address] Glucose [Mass/Vol] 110 mg/dL High 74-106 [facility] Comment on above: Order Comment: 1Y Result Comment: Fast ing Glucose result from 100 to 125 mg/dL suggests IMPAIRED HOMEOSTASIS per A.D.A. criteria. Performed By: #### L 500.2500, L100.0100, L501.9520, L501.5425, L500.3400 ####[facility] [address] [place], [address] Potassium [Moles/Vol] 4.1 mmol/L Normal 3.5-5.1 [facility] Comment on above: Order Comment: 1Y Performed By: #### L 500.2500, L100.0100, L501.9520, L501.5425, L500.3400 ####[facility] [address] [place], [address] Sodium [Moles/Vol] 140 mmol/L Normal 136-145 [facility] Comment on above: Order Comment: 1Y Performed By: #### L 500.2500, L100.0100, L501.9520, L501.5425, L500.3400 ####[facility] [address] [place], [address] Urea nitrogen [Mass/Vol] 27 mg/dL High 7-18 [facility] Comment on above: Order Comment: 1Y Performed By: #### L 500.2500, L100.0100, L501.9520, L501.5425, L500.3400 ####[facility] [address] [place], [address] CBC W/Diff, Automatedon 07-0 5-2023 Absolute Lymph 2.14 X10 3/uL Normal 0.83-4.51 [facility] Comment on above: Performed By: #### L 100.0100, L500.4050 #### [facility] [address] [place], [address] Absolute Neut 3.4 X10 3/uL Normal 2.0-7.7 [facility] Comment on above: Performed By: #### L 100.0100, L500.4050 #### [facility] [address] [place], [address] Basophils/100 WBC (Bld) 0.9 % Normal 0-1 [facility] Comment on above: Performed By: #### L 100.0100, L500.4050 #### [facility] [address] [place], [address] Eosinophils/100 WBC (Bld) 3.5 % Normal 0-5 [facility] Comment on above: Performed By: #### L 100.0100, L500.4050 #### [facility] [address] [place], [address] Erythrocyte distribution width (RBC) [Ratio] 13.4 % Normal 11.6-14.6 [facility] Comment on above: Performed By: #### L 100.0100, L500.4050 #### [facility] [address] [place], [address] Hematocrit (Bld) [Volume fraction] 35.4 % Low 37-47 [facility] Comment on above: Performed By: #### L 100.0100, L500.4050 #### [facility] [address] [place], [address] Hemoglobin (Bld) [Mass/Vol] 11.3 g/dL Low 12.0-15.0 [facility] Comment on above: Performed By: #### L 100.0100, L500.4050 #### [facility] [address] [place], [address] IG% 0.300 Normal 0.0-0.9 [facility] Comment on above: Result Comment: IG% - Immature Granulocytes (promyelocytes, myelocytes and metamyelocytes) > 1% indicates that a LEFT SHIFT is Present. Performed By: #### L 100.0100, L500.4050 #### [facility] [address] [place], [address] Lymphocytes/100 WBC (Bld) 33.7 % Normal 19-41 [facility] Comment on above: Performed By: #### L 100.0100, L500.4050 #### [facility] [address] [place], [address] MCH (RBC) [Entitic mass] 29.4 pg Normal 27.0-32.0 [facility] Comment on above: Performed By: #### L 100.0100, L500.4050 #### [facility] [address] [place], [address] MCHC (RBC) [Mass/Vol] 31.9 g/dL Low 32-36 [facility] Comment on above: Performed By: #### L 100.0100, L500.4050 #### [facility] [address] [place], [address] MCV (RBC) [Entitic vol] 91.9 fL Normal 81-99 [facility] Comment on above: Performed By: #### L 100.0100, L500.4050 #### [facility] [address] [place], [address] Monocytes/100 WBC (Bld) 8.7 % Normal 0-10 [facility] Comment on above: Performed By: #### L 100.0100, L500.4050 #### [facility] [address] [place], [address] Neutrophils/100 WBC (Bld) 52.9 % Normal 47-70 [facility] Comment on above: Performed By: #### L 100.0100, L500.4050 #### [facility] [address] [place], [address] Nucleated RBC (Bld) [#/Vol] 0 10*3/uL Normal 0-5 [facility] Comment on above: Performed By: #### L 100.0100, L500.4050 #### [facility] [address] [place], [address] Platelet mean volume (Bld) [Entitic vol] 9.7 fL Normal 6.2-12.0 [facility] Comment on above: Performed By: #### L 100.0100, L500.4050 #### [facility] [address] [place], [address] Platelets (Bld) [#/Vol] 252 10*3/uL Normal 150-450 [facility] Comment on above: Performed By: #### L 100.0100, L500.4050 #### [facility] [address] [place], [address] RBC (Bld) [#/Vol] 3.85 10*6/uL Low 4.2-5.4 [facility] Comment on above: Performed By: #### L 100.0100, L500.4050 #### [facility] [address] [place], [address] RDW SD 45.3 fl High 35.1-43.9 [facility] Comment on above: Performed By: #### L 100.0100, L500.4050 #### [facility] [address] [place], [address] WBC (Bld) [#/Vol] 6.4 10*3/uL Normal 4.4-11.0 [facility] Comment on above: Performed By: #### L 100.0100, L500.4050 #### [facility] [address] [place], [address] Comprehensive Metabolic Prof caon 01-29-2024 Albumin [Mass/Vol] 3.3 g/dL Normal 3.2-5.0 [facility] Comment on above: Performed By: #### L 100.0100, L500.4050 #### [facility] [address] [place], [address] Albumin/Globulin [Mass ratio] 0.9 {ratio} Normal 0.9-2.4 [facility] Comment on above: Performed By: #### L 100.0100, L500.4050 #### [facility] [address] [place], [address] ALK P 36 U/L Low 45-117 [facility] Comment on above: Performed By: #### L 100.0100, L500.4050 #### [facility] [address] [place], [address] ALT [Catalytic activity/Vol] 16 U/L Normal 13-56 [facility] Comment on above: Performed By: #### L 100.0100, L500.4050 #### [facility] [address] [place], [address] AST [Catalytic activity/Vol] 26 U/L Normal 15-37 [facility] Comment on above: Performed By: #### L 100.0100, L500.4050 #### [facility] [address] [place], [address] Bilirubin [Mass/Vol] 0.50 mg/dL Normal 0.20-1.00 [facility] Comment on above: Result Comment: For patients on eltrombopag therapy, use of Dimension Rosamond TBIL is not recommended. Performed By: #### L 100.0100, L500.4050 #### [facility] [address] [place], [address] BUN/CRE 32.1 RATIO High 10-20 [facility] Comment on above: Performed By: #### L 100.0100, L500.4050 #### [facility] [address] [place], [address] CA,Total 8.6 mg/dL Normal 8.5-10.1 [facility] Comment on above: Performed By: #### L 100.0100, L500.4050 #### [facility] [address] [place], [address] Chloride [Moles/Vol] 108 mmol/L High 98-107 [facility] Comment on above: Performed By: #### L 100.0100, L500.4050 #### [facility] [address] [place], [address] CO2 [Moles/Vol] 26.0 mmol/L Normal 21.0-32.0 [facility] Comment on above: Performed By: #### L 100.0100, L500.4050 #### [facility] [address] [place], [address] Creatinine [Mass/Vol] 0.66 mg/dL Normal 0.55-1.02 [facility] Comment on above: Result Comment: The validity of the calculated GFR GFRAA in patients over 70 years has not been determined. Clinical correlation is essential. Performed By: #### L 100.0100, L500.4050 #### [facility] [address] [place], [address] ECRCL 55.70 ml/min Normal [facility] Comment on above: Performed By: #### L 100.0100, L500.4050 #### [facility] [address] [place], [address] EST GFR - AA 114 mL/min Normal >60 [facility] Comment on above: Result Comment: Afri can Ecuadorean GFR Calc Performed By: #### L 100.0100, L500.4050 #### [facility] [address] [place], [address] GAP 6 Normal 5-15 [facility] Comment on above: Performed By: #### L 100.0100, L500.4050 #### [facility] [address] [place], [address] GFR/1.73 sq M.predicted among non-blacks MDRD (S/P/Bld) [Vol rate/Area] 94 mL/min/{1.73_m2} Normal >60 [facility] Comment on above: Result Comment: Non- GFR Calc Performed By: #### L 100.0100, L500.4050 #### [facility] [address] [place], [address] Globulin (S) [Mass/Vol] 3.6 g/dL Normal 2.2-4.2 [facility] Comment on above: Performed By: #### L 100.0100, L500.4050 #### [facility] [address] [place], [address] Glucose [Mass/Vol] 86 mg/dL Normal 74-106 [facility] Comment on above: Performed By: #### L 100.0100, L500.4050 #### [facility] [address] [place], [address] Potassium [Moles/Vol] 4.0 mmol/L Normal 3.5-5.1 [facility] Comment on above: Performed By: #### L 100.0100, L500.4050 #### [facility] [address] [place], [address] Sodium [Moles/Vol] 140 mmol/L Normal 136-145 [facility] Comment on above: Performed By: #### L 100.0100, L500.4050 #### [facility] [address] [place], [address] T PROT 6.9 g/dL Normal 6.4-8.2 [facility] Comment on above: Performed By: #### L 100.0100, L500.4050 #### [facility] [address] [place], [address] Urea nitrogen [Mass/Vol] 21 mg/dL High 7-18 [facility] Comment on above: Performed By: #### L 100.0100, L500.4050 #### [facility] [address] [place], [address] Echo Completeon 01-29-2024 Echo Complete [facility] [address] [place] [address] Echo Complete 01/29/24 0844 MR#: [id number] Acct: [id number] Name: LUPIS BRITO Rep #: [id number] : 1950 73 From: Rasta Alejandro MD Attending Dr: Dr. Inez Moya MD Status: AURELIO RODOÑEZ Ordering Dr: Odin Ware DO Date: 01/29/24 Location: [facility] Sex: F C Admitted: 01/29/24 Reason For Study: OTHER Procedure This was a 2D Doppler, Color Flow transthoracic echocardiogram. Exam performed portable in patient room. Left Ventricle Normal LV size. Left ventricular systolic function is normal. The left ventricular ejection fraction is 55 %. No regional wall motion abnormalities noted. Right Ventricle Normal RV size. Normal systolic function. Atria Normal left atrium. Normal right atrium. Mitral Valve Normal mitral valve. Tricuspid Valve Normal tricuspid valve. Mild tricuspid valve insufficiency. Pulmonary artery systolic pressure is 26 mmHg. Aortic Valve Trisinus/trileaflet aortic valve. Pulmonic Valve Normal pulmonic valve. Great Vessels Normal aortic root. The pulmonary artery is normal size. Normal inferior vena cava. Pericardium/Pleural No pericardial effusion. MMode/2D Measurements Calculations LVIDd: 4.5 cm IVSd: 0.64 cm LVOT diam: 2.0 cm LVIDs: 3.2 cm LVPWd: 0.76 cm LVOT area: 3.2 cm2 FS: 28.4 % Ao root diam: 3.3 cm LAV(MOD-bp): 36.1 ml LVAd ap4: 25.5 cm2 LAV(MOD-bp) Indexed: 22.1 ml/m2 LVLd ap4: 7.4 cm LAV(MOD-sp2): 35.4 ml EDV(MOD-sp4): 75.9 ml LAV(MOD-sp4): 27.2 ml EDV(sp4-el): 74.1 ml LVAs ap4: 12.7 cm2 LVLs ap4: 5.5 cm ESV(MOD-sp4): 25.5 ml ESV(sp4-el): 24.8 ml EF(MOD-sp4): 66.5 % EF(sp4-el): 66.5 % SV(MOD-sp4): 50.5 ml SV(sp4-el): 49.2 ml LA A4 area: 11.4 cm2 LA dimension(2D): 2.8 cm RA A4 area: 14.9 cm2 TAPSE: 2.4 cm Time Measurements MV dec time: 0.16 sec Doppler Measurements Calculations MV E max dallin: 58.7 cm/sec Lat Peak E' Dallin: 10.5 cm/sec Med Peak E' Dallin: 9.2 cm/sec MV A max dallin: 61.9 cm/sec E/E' lat: 5.6 E/E' med: 6.4 MV E/A: 0.95 Ao V2 max: 141.7 cm/sec LV V1 max: 100.7 cm/sec MV dec slope: 364.1 cm/sec2 Ao max P.0 mmHg LV V1 max P.1 mmHg Ao V2 mean: 98.9 cm/sec LV V1 mean P.1 mmHg Ao mean P.5 mmHg LV V1 mean: 67.3 cm/sec Ao V2 VTI: 32.9 cm LV V1 VTI: 21.9 cm AV (velocity ratio): 0.67 CHIKA(I,D): 2.1 cm2 CHIKA(V,D): 2.2 cm2 SV(LVOT): 69.5 ml PA V2 max: 71.9 cm/sec PI end-d dallin: 77.3 cm/sec PA max PG (full): 0.76 mmHg TR max dallin: 237.6 cm/sec TR max P.6 mmHg ECHO/Echo Complete Interpretation Summary Normal LV size. Left ventricular systolic function is normal. No regional wall motion abnormalities noted. The left ventricular ejection fraction is 55 %. Pulmonary artery systolic pressure is 26 mmHg. Structurally normal valves. Ordering Physician: Odin Ware Referring Physician: TACOS HEIN Performed By: Cherelle Saldana and Student 01/29/244 Date Rasta Alejandro MD CC: Dr. Inez Moya MD; Dr. Odin Ware DO; Dr. Tacos Hein MD Date Dictated: 01/29/2444 Date Transcribed: 01/29/241513 Geophysical Computer: Signed Normal [facility] H AND P Exam - Hospitaliston 01-29-2024 H&P Exam - Hospitalist [facility] Medical Records Department [address] [place] [address] H P Exam - Hospitalist 01/29/24 0216 MR#: [id number] Acct: [id number] Name: LUPIS BRITO Rep #: [id number] : 1950 73 From: Odin Ware DO PCP: Dr. Tacos Hein MD Status:ADM TIGAO Location: [place] [id number] HPI - General General Date of Admission: 01/29/24 Date of Service: 01/29/24 Chief Complaint: Palpitations. HPI Narrative LUPIS BRITO, is a 73 F with a past medical history of asthma, history of chest pain; with negative stress test in July 2023, history of osteoporosis; on Prolia, neuropathy, history of ganglion cyst (2022), osteoarthritis and recently diagnosed blocked oil duct with suspected mild persistent infection of the Left eye for which she was recently started on oral Doxycycline two days ago who presents to [facility] ER complaining of palpitations. Ms. Brito reports her symptoms began at approximately 8 PM on January 28, 2024 when she began to experience a rapid-onset of elevated heart rate with her Apple Watch indicating speeds of 130 to 150 bpm. She also admits to associated chest tightness that was slight, precordial and nonradiating with associated nausea but she denies vomiting, abdominal pain, shortness of breath, lightheadedness or dizziness. She denies excessive caffeine use, increased rescue inhaler use, recent travel, recent asthma exacerbation or similar previous episodes but both the patient and her daughter suspect her issues are related to an adverse drug reaction to her recently started oral Doxycycline. There is no report of fever, chills, diarrhea, constipation, chest pain or diaphoresis. In the ER her initial EKG revealed accelerated atrial ventricular junctional rhythm @ 127 bpm suspected to be due an adverse drug reaction to recently started oral Doxycycline (with this agent now added to her list of allergies) with CXR revealing only hyperexpansion as can be seen with COPD with no radiographic evidence of consolidative pneumonia or florid edema with the patient then quickly converted back to normal sinus rhythm at 85 bpm with EKG showing no signs of ischemia though her troponin had increased from initial troponin of 31 pg/mL and a 2-hour repeat troponin increased to 94 pg/mL consistent with suspected troponin leak due to acute cardiac strain and she was then admitted to the PCU under observation status for ongoing care and monitoring for stay that is expected to be less than 2 midnights. [facility] Medical History Asthma Arthritis Home Medications ???Medication ???Instructions ???Recorded ???Last Taken ???Type albuterol sulfate 90 mcg/actuation 2 puff inhalation Q4H PRN 01/28/24 Unknown History aerosol inhaler shortness of breath or wheezing beclomethasone dipropionate 80 2 inh inhalation BID 01/28/24 Unknown History mcg/actuation HFA breath activated aerosol (Qvar RediHaler) denosumab 60 mg/mL subcutaneous 60 mg subcut .[id number] 01/28/24 Unknown History syringe (Prolia) doxycycline hyclate 100 mg tablet 50 mg PO BID 01/28/24 Unknown History fluticasone furoate 100 1 inh inhalation DAILY 01/28/24 Unknown History mcg/actuation blister powder for inhalation (Arnuity Ellipta) gabapentin 300 mg capsule 300 mg PO Q12H 01/28/24 Unknown History meloxicam 7.5 mg tablet 7.5 mg PO DAILY 01/28/24 Unknown History montelukast 10 mg tablet 10 mg PO QHS 01/28/24 Unknown History Allergy/AdvReac Type Severity Reaction Status Date / Time doxycycline AdvReac Intermediate Other Verified 01/29/24 03:39 Penicillins AdvReac Mild Nausea Verified 01/28/24 23:22 Sulfa (Sulfonamide AdvReac Mild Nausea Verified 01/28/24 23:22 Antibiotics) Social History Smoking Status: Never smoker ROS ROS Narrative Review of systems: General: Patient denies fever or chills. HENT: Denies headache, denies stuffy nose, denies sore throat EYES: Denies changes in vision or discharge from eyes. Resp: Denies cough, denies shortness of breath Cardiac: Patient admits to chest pressure and palpitations but she denies chest pain. GI: Denies abdominal pain, denies changes in bowel, had some nausea but denies vomiting : Denies changes in urination Extremity: Denies swelling Musculoskeletal: Patient denies arthralgias or myalgias. Neuro: Patient denies headache, paresthesias or focal neurologic deficits. Heme: Denies any bleeding or bruising Skin: Denies rashes Psychiatric: No complaints voiced related to uncontrolled depression or anxiety. Endocrine: No polyuria, polydipsia or polyphagia. The rest of the 14 point ROS was negative except for positives in HPI. Vital Signs Vital Signs Vital Signs: 01/28/24 23:17 01/29/24 (more content not included)... Normal [facility] L501.4020on 01-29-2024 TROPONIN-I HS 86 pg/mL High 3.0-54.0 [facility] Comment on above: Order Comment: 'TROP ' Serial specimen #1, #2 or #3: 1 Result Comment: Plea se Note: New Test Units and Gender Specific Reference Ranges. For more information see Policy Stat Procedure [place] High Sensitivity Troponin (TNIH) and attachments. Performed By: #### L 499.0043 #### [facility] [address] [place], [address] TROPONIN-I HS 94 pg/mL High 3.0-54.0 [facility] Comment on above: Result Comment: Plea se Note: New Test Units and Gender Specific Reference Ranges. For more information see Policy Stat Procedure [place] High Sensitivity Troponin (TNIH) and attachments. Performed By: #### L 501.4020 ####[facility] [address] [place], [address] L501.5425on 01-29-2024 TROPONIN-I HS 31 pg/mL Normal 3.0-54.0 [facility] Comment on above: Order Comment: 1Y Result Comment: Plea se Note: New Test Units and Gender Specific Reference Ranges. For more information see Policy Stat Procedure [place] High Sensitivity Troponin (TNIH) and attachments. Performed By: #### L 500.2500, L100.0100, L501.9520, L501.5425, L500.3400 ####[facility] [address] [place], [address] Lipid Profileon 01-29-2024 Cholesterol [Mass/Vol] 260 mg/dL High 200 [facility] Comment on above: Result Comment: <200 mg/dL Desirable 200-240 mg/dL Borderline >240 mg/dL High Risk Performed By: #### L 506.0400, L500.4100 #### [facility] [address] [place], [address] Cholesterol in HDL [Mass/Vol] 75 mg/dL Normal [facility] Comment on above: Result Comment: The drugs N-Acetylcysteine and Metamizole may falsely depress this assay. Reference Range HDL <40 mg/dL Low HDL Cholesterol HDL >or= 60 mg/dL High HDL Cholesterol Performed By: #### L 506.0400, L500.4100 #### [facility] [address] [place], [address] Cholesterol in LDL [Mass/Vol] 146 mg/dL High 0-130 [facility] Comment on above: Performed By: #### L 506.0400, L500.4100 #### [facility] [address] [place], [address] Cholesterol in VLDL [Mass/Vol] 39 mg/dL Normal 5-40 [facility] Comment on above: Performed By: #### L 506.0400, L500.4100 #### [facility] [address] [place], [address] Triglyceride [Mass/Vol] 197 mg/dL Normal [facility] Comment on above: Result Comment: The drugs N-Acetylcysteine and Metamizole may falsely depress this assay. Serum Triglycerides Reference Interval Normal <150 mg/dL Borderline high 150 - 199 mg/dL High 200 - 499 mg/dL Very High > or = 500 mg/dL Performed By: #### L 506.0400, L500.4100 #### [facility] [address] [place], [address] Liver Profileon 01-29-2024 Albumin [Mass/Vol] 3.7 g/dL Normal 3.2-5.0 [facility] Comment on above: Order Comment: 1Y Performed By: #### L 500.2500, L100.0100, L501.9520, L501.5425, L500.3400 ####[facility] [address] [place], [address] ALK P 52 U/L Normal 45-117 [facility] Comment on above: Order Comment: 1Y Performed By: #### L 500.2500, L100.0100, L501.9520, L501.5425, L500.3400 ####[facility] [address] [place], [address] ALT [Catalytic activity/Vol] 18 U/L Normal 13-56 [facility] Comment on above: Order Comment: 1Y Performed By: #### L 500.2500, L100.0100, L501.9520, L501.5425, L500.3400 ####[facility] [address] [place], [address] AST [Catalytic activity/Vol] 21 U/L Normal 15-37 [facility] Comment on above: Order Comment: 1Y Performed By: #### L 500.2500, L100.0100, L501.9520, L501.5425, L500.3400 ####[facility] [address] [place], [address] Bilirubin [Mass/Vol] 0.40 mg/dL Normal 0.20-1.00 [facility] Comment on above: Order Comment: 1Y Result Comment: For patients on eltrombopag therapy, use of Dimension Rosamond TBIL is not recommended. Performed By: #### L 500.2500, L100.0100, L501.9520, L501.5425, L500.3400 ####[facility] [address] [place], [address] Bilirubin.direct [Mass/Vol] 0.09 mg/dL Normal 0.00-0.30 [facility] Comment on above: Order Comment: 1Y Performed By: #### L 500.2500, L100.0100, L501.9520, L501.5425, L500.3400 ####[facility] [address] [place], [address] Globulin (S) [Mass/Vol] 4.0 g/dL Normal 2.2-4.2 [facility] Comment on above: Order Comment: 1Y Performed By: #### L 500.2500, L100.0100, L501.9520, L501.5425, L500.3400 ####[facility] [address] [place], [address] T PROT 7.7 g/dL Normal 6.4-8.2 [facility] Comment on above: Order Comment: 1Y Performed By: #### L 500.2500, L100.0100, L501.9520, L501.5425, L500.3400 ####[facility] [address] [place], [address] Magnesiumon 01-29-2024 Magnesium [Mass/Vol] 2.2 mg/dL Normal 1.6-2.6 [facility] Comment on above: Performed By: #### L 501.5200, L501.2300 #### [facility] [address] [place], [address] Phosphoruson 01-29-2024 Phosphate [Mass/Vol] 4.1 mg/dL Normal 2.5-4.9 [facility] Comment on above: Performed By: #### L 501.5200, L501.2300 #### [facility] [address] [place], [address] T4 Free Directon 01-29-2024 T4 FREE DIRECT 0.95 ng/dL Normal 0.76-1.46 [facility] Comment on above: Performed By: #### L 506.0400, L500.4100 #### [facility] [address] [place], [address] Thyroid Stim Hormone (TSH)on 01-29-2024 TSH 4.95 uIU/mL High 0.358-3.74 [facility] Comment on above: Order Comment: 1Y Performed By: #### L 500.2500, L100.0100, L501.9570, L501.5421, L500.3400 ####[facility] [address] [place], [address] 12 Lead EKGon 01-28-2024 12 Lead EKG [facility] Cardiovascular Services [address] [place] [address] 12 Lead EKG 01/28/24 2319 MR#: [id number] Acct: [id number] Name: LUPIS BRITO Rep #: [id number] : 1950 73 From: Son Fontana MD Attending Dr: Dr. Inez Moya MD Status: KORI ORDOÑEZ Ordering Dr: Marilou Ariza MD Date: 01/28/24 Location: [facility] Sex: F C Admitted: 01/29/24 Test Reason : DYSRHYTHMIA Blood Pressure : / mmHG Vent. Rate : 127 BPM Atrial Rate : 000 BPM P-R Int : 000 ms QRS Dur : 078 ms QT Int : 298 ms P-R-T Axes : 000 055 066 degrees QTc Int : 433 ms Accelerated Junctional rhythm Nonspecific ST abnormality Abnormal ECG Confirmed by Son Fontana ([id number]), editor sound KYARA HAN ([id number]) on 02/01/2024 10:34:24 AM Referred By: MARCY Confirmed By:Son Fontana 02/01/24 1034 Date Son Fontana MD CC: Dr. Inez Moya MD; Dr. Tacos Hein MD; Dr. Marilou Ariza MD Signed Normal [facility] 12 Lead EKG [facility] Cardiovascular Services [address] [place] [address] 12 Lead EKG 01/28/24 2325 MR#: [id number] Acct: [id number] Name: LUPIS BRITO Rep #: [id number] : 1950 73 From: Son Fontana MD Attending Dr: Dr. Inez Moya MD Status: DI S TIAGO Ordering Dr: Marilou Ariza MD Date: 01/28/24 Location: [facility] Sex: F C Admitted: 01/29/24 Test Reason : DYSRHYTHMIA Blood Pressure : / mmHG Vent. Rate : 085 BPM Atrial Rate : 085 BPM P-R Int : 196 ms QRS Dur : 078 ms QT Int : 348 ms P-R-T Axes : 078 046 064 degrees QTc Int : 414 ms Normal sinus rhythm Normal ECG Confirmed by Son Fontana ([id number]), editor sound KYARA HAN ([id number]) on 02/01/2024 10:34:04 AM Referred By: MARCY Confirmed By:Son Fontana 02/01/24 1034 Date Son Fontana MD CC: Dr. Inez Moya MD; Dr. Tacos Hein MD; Dr. Marilou Ariza MD Signed Normal [facility] CBC W/Diff, Automatedon 07-0 -2023 Absolute Lymph 2.79 X10 3/uL Normal 0.83-4.51 [facility] Comment on above: Performed By: #### L 500.2500, L100.0100, L501.9520, L501.5425, L500.3400 ####[facility] [address] [place], [address] Absolute Neut 3.5 X10 3/uL Normal 2.0-7.7 [facility] Comment on above: Performed By: #### L 500.2500, L100.0100, L501.9520, L501.5425, L500.3400 ####[facility] [address] [place], [address] Basophils/100 WBC (Bld) 0.8 % Normal 0-1 [facility] Comment on above: Performed By: #### L 500.2500, L100.0100, L501.9520, L501.5425, L500.3400 ####[facility] [address] [place], [address] Eosinophils/100 WBC (Bld) 3.1 % Normal 0-5 [facility] Comment on above: Performed By: #### L 500.2500, L100.0100, L501.9520, L501.5425, L500.3400 ####[facility] [address] [place], [address] Erythrocyte distribution width (RBC) [Ratio] 13.3 % Normal 11.6-14.6 [facility] Comment on above: Performed By: #### L 500.2500, L100.0100, L501.9520, L501.5425, L500.3400 ####[facility] [address] [place], [address] Hematocrit (Bld) [Volume fraction] 37.6 % Normal 37-47 [facility] Comment on above: Performed By: #### L 500.2500, L100.0100, L501.9520, L501.5425, L500.3400 ####[facility] [address] [place], [address] Hemoglobin (Bld) [Mass/Vol] 12.3 g/dL Normal 12.0-15.0 [facility] Comment on above: Performed By: #### L 500.2500, L100.0100, L501.9520, L501.5425, L500.3400 ####[facility] [address] [place], [address] IG% 0.100 Normal 0.0-0.9 [facility] Comment on above: Result Comment: IG% - Immature Granulocytes (promyelocytes, myelocytes and metamyelocytes) > 1% indicates that a LEFT SHIFT is Present. Performed By: #### L 500.2500, L100.0100, L501.9520, L501.5425, L500.3400 ####[facility] [address] [place], [address] Lymphocytes/100 WBC (Bld) 38.1 % Normal 19-41 [facility] Comment on above: Performed By: #### L 500.2500, L100.0100, L501.9520, L501.5425, L500.3400 ####[facility] [address] [place], [address] MCH (RBC) [Entitic mass] 29.6 pg Normal 27.0-32.0 [facility] Comment on above: Performed By: #### L 500.2500, L100.0100, L501.9520, L501.5425, L500.3400 ####[facility] [address] [place], [address] MCHC (RBC) [Mass/Vol] 32.7 g/dL Normal 32-36 [facility] Comment on above: Performed By: #### L 500.2500, L100.0100, L501.9520, L501.5425, L500.3400 ####[facility] [address] [place], [address] MCV (RBC) [Entitic vol] 90.4 fL Normal 81-99 [facility] Comment on above: Performed By: #### L 500.2500, L100.0100, L501.9520, L501.5425, L500.3400 ####[facility] [address] [place], [address] Monocytes/100 WBC (Bld) 9.8 % Normal 0-10 [facility] Comment on above: Performed By: #### L 500.2500, L100.0100, L501.9520, L501.5425, L500.3400 ####[facility] [address] [place], [address] Neutrophils/100 WBC (Bld) 48.1 % Normal 47-70 [facility] Comment on above: Performed By: #### L 500.2500, L100.0100, L501.9520, L501.5425, L500.3400 ####[facility] [address] [place], [address] Nucleated RBC (Bld) [#/Vol] 0 10*3/uL Normal 0-5 [facility] Comment on above: Performed By: #### L 500.2500, L100.0100, L501.9520, L501.5425, L500.3400 ####[facility] [address] [place], [address] Platelet mean volume (Bld) [Entitic vol] 9.3 fL Normal 6.2-12.0 [facility] Comment on above: Performed By: #### L 500.2500, L100.0100, L501.9520, L501.5425, L500.3400 ####[facility] [address] [place], [address] Platelets (Bld) [#/Vol] 288 10*3/uL Normal 150-450 [facility] Comment on above: Performed By: #### L 500.2500, L100.0100, L501.9520, L501.5425, L500.3400 ####[facility] [address] [place], [address] RBC (Bld) [#/Vol] 4.16 10*6/uL Low 4.2-5.4 [facility] Comment on above: Performed By: #### L 500.2500, L100.0100, L501.9520, L501.5425, L500.3400 ####[facility] [address] [place], [address] RDW SD 44.4 fl High 35.1-43.9 [facility] Comment on above: Performed By: #### L 500.2500, L100.0100, L501.9520, L501.5425, L500.3400 ####[facility] [address] [place], [address] WBC (Bld) [#/Vol] 7.3 10*3/uL Normal 4.4-11.0 [facility] Comment on above: Performed By: #### L 500.2500, L100.0100, L501.9520, L501.5425, L500.3400 ####[facility] [address] [place], [address] Chest 1 View (Portable)on Chest 1 View (Portable) [facility] Imaging Services [address] [place] [address] Chest 1 View (Portable) MR#: [id number] Acct: [id number] Name: LUPIS BRITO Rep #: [id number] : 1950 F 73 From: Yassine Whittington MD PCP: Dr. Tacos Hein MD Status: REG ER Study: Chest 1 View (Portable) Date of Exam: 01/28/24 Exam# [id number] Ordering Dr: Marilou Ariza MD [id number] INDICATION: cp EXAMINATION/TECHNIQUE : X-RAY - XR Chest 1 View COMPARISON: 08/03/2023. __ FINDINGS: LINES/DEVICES: None. LUNGS: Lungs symmetrically hyperexpanded. No consolidation, edema or effusion. No pneumothorax. MEDIASTINUM AND CARDIOVASCULAR STRUCTURES: Cardiac silhouette not enlarged. Mild aortic atherosclerosis and tortuosity BONES AND SOFT TISSUES: Unremarkable. RAD/Chest 1 View (Portable) IMPRESSION: Hyperexpansion as can be seen with chronic obstructive pulmonary disease. No radiographic evidence of consolidative pneumonia or florid edema. Electronically Signed: Yassine Whittington MD at 0:14 EDT , CC: Dr. Tacos Hein MD; Dr. Marilou Ariza MD Geophysical Computer: Signed Normal [facility] Emergency Department Summary on 01-28-2024 Emergency Department Summary [facility] Medical Records Department [address] [place] [address] Emergency Department Summary 01/28/24 MR#: [id number] Acct: [id number] Name: LUPIS BRITO Rep #: [id number] : 1950 73 From: Marilou Ariza MD PCP: Dr. Tacos Hein MD Status:ADM TIAGO Location: [place] [address] HPI History of Present Illness Chief Complaint: Palpitations Detail of Chief Complaint: Palpitations, nausea, chest tightness Informant: patient Narrative Narrative: Patient presents with high heart rate, chest tightness, and some nausea that started around 8 PM this evening. She was wearing an Apple Watch and noted her heart rate was between 130s and 150s. She had some slight chest tightness. No significant lightheadedness or dizziness. She does not feel short of breath. [facility] Medical History (Updated 01/29/24 @ 02:[address] Marilou Ariza MD) Asthma Arthritis Home Medications ???Medication ???Instructions ???Recorded ???Last Taken ???Type albuterol sulfate 90 mcg/actuation 2 puff inhalation Q4H PRN 01/28/24 Unknown History aerosol inhaler shortness of breath or wheezing beclomethasone dipropionate 80 2 inh inhalation BID 01/28/24 Unknown History mcg/actuation HFA breath activated aerosol (Qvar RediHaler) denosumab 60 mg/mL subcutaneous 60 mg subcut .[id number] 01/28/24 Unknown History syringe (Prolia) doxycycline hyclate 100 mg tablet 50 mg PO BID 01/28/24 Unknown History fluticasone furoate 100 1 inh inhalation DAILY 01/28/24 Unknown History mcg/actuation blister powder for inhalation (Arnuity Ellipta) gabapentin 300 mg capsule 300 mg PO Q12H 01/28/24 Unknown History meloxicam 7.5 mg tablet 7.5 mg PO DAILY 01/28/24 Unknown History montelukast 10 mg tablet 10 mg PO QHS 01/28/24 Unknown History Allergy/AdvReac Type Severity Reaction Status Date / Time Penicillins AdvReac Mild Nausea Verified 01/28/24 23:22 Sulfa (Sulfonamide AdvReac Mild Nausea Verified 01/28/24 23:22 Antibiotics) Social History Smoking Status: Never smoker ROS ROS ED Constitutional Constitutional ED: Denies chills or fever(s) Eyes Eyes: Denies change in vision ENT ENT ED: Denies rhinorrhea or sore throat Cardiovascular Cardiovascular: Reports chest pain and palpitations Respiratory/Chest Respiratory/Chest: Denies cough or dyspnea Gastrointestinal Gastrointestinal: Reports nausea; Denies abdominal pain, diarrhea or vomiting Genitourinary Genitourinary ED: Denies dysuria Musculoskeletal Musculoskeletal: Denies back pain or extremity pain Integumentary Denies Abrasions or rash Neurologic Neurologic: Denies headache(s) or weakness Psychiatric Psychiatric: Denies anxiety or depression Allergic/Immunologic Allergic/Immunologic ED: Denies lip swelling or urticaria EXAM Physical Exam Const Vital Signs: 01/28/24 23:17 01/29/24 01:14 Temperature 98.1 F Temperature Source Temporal Pulse Rate 130 H 75 Respiratory Rate 18 12 Blood Pressure 132/100 H 117/81 H Blood Pressure Mean 110 93 Pulse Ox 98 97 Oxygen Delivery Method Room Air Room Air Positive well nourished and well developed General Appearance ED: well developed HEENT Reports moist mucous membranes Eyes EOMs intact bilaterally Chest Wall inspection of chest normal and palpation of chest normal Resp normal respiratory effort and clear to auscultation bilaterally Cardio regular rate and regular rhythm GI non-tender Auscultation: hypoactive bowel sounds Palpation: soft Extremity normal to inspection Neuro oriented x3 and no sensory deficits noted Motor Exam: strength 5/5 throughout Psych mental status grossly normal Skin no rashes or lesions noted MDM MDM MDM Narrative Medical decision making narrative: Patient was placed on monitor and storage bin tender. IV line initiated. EKG obtained to evaluate for cardiac arrhythmia/ischemia. Chest x-ray obtained to evaluate for acute lung pathology, cardiac size, or mediastinal abnormality. Labwork obtained to evaluate for leukocytosis, anemia, and electrolyte derangement. Lab Data Labs: Laboratory Results - last 24 hr 01/28/24 01/29/24 23:31 01:39 WBC 7.3 RBC 4.16 L Hgb 12.3 Hct 37.6 MCV 90.4 MCH 29.6 MCHC 32.7 RDW Std Deviation 44.4 H RDW Coeff of Angy 13.3 Plt Count 288 MPV 9.3 Immature Gran % (Auto) 0.100 Neut % (Auto) 48.1 Lymph % (Auto) 38.1 [place] % (Auto) 9.8 Eos % (Auto) 3.1 Baso % (Auto) 0.8 Absolute Neuts (auto) 3.5 Absolute Lymphs (auto) 2.79 Nucleated RBC % 0 Sodium 140 Potassium 4.1 Chloride 105 Carbon Dioxide 25.0 Anion Gap 10 BUN 27 H Creatinine 0.81 Estim Creat Clear Calc 55.01 Est GFR (MDRD) Af (more content not included)... Normal [facility] Absolute lymphocyte countOrd ered By: Cody Lisa on 08-03-2023 Lymphocytes Auto (Unsp spec) [#/Vol] 1.74 10*3/uL 0.83-4.51 [facility] Basophil percentageOrdered B y: Cody Stacyangelica on 08-03-2023 Basophils/100 WBC (Bld) 0.9 % 0-1 [facility] Bilirubin [Mass/Vol] 0.60 mg/dL 0.20-1.00 [facility] Comment on above: For patients on eltr ombopag therapy, use of Dimension [place] TBIL is not recommended. Chloride [Moles/Vol] 105 mmol/L 98-107 [facility] Eosinophils/100 WBC (Bld) 2.9 % 0-5 [facility] Glucose [Mass/Vol] 127 mg/dL 74-106 [facility] Comment on above: Fasting Glucose resu lt greater than or equal to 126 mg/dL suggests DIABETES MELLITUS per A.D.A. criteria. Neutrophils (Bld) [#/Vol] 4.4 10*3/uL 2.0-7.7 [facility] Neutrophils/100 WBC (Bld) 62.7 % 47-70 [facility] Potassium [Moles/Vol] 3.9 mmol/L 3.5-5.1 [facility] Protein [Mass/Vol] 7.4 g/dL 6.4-8.2 [facility] Sodium [Moles/Vol] 139 mmol/L 136-145 [facility] WBC (Bld) [#/Vol] 7.0 10*3/uL 4.4-11.0 [facility] Blood erythrocytes count (nu mber/volume)Ordered By: Cody Gonzalez on 08-03-2023 RBC (Bld) [#/Vol] 4.06 10*6/uL 4.2-5.4 [facility] Blood hemoglobin measurement (mass/volume)Ordered By: Cody Gonzalez on 08-03-2023 Hemoglobin (Bld) [Mass/Vol] 12.2 g/dL 12.0-15.0 [facility] Blood lymphocytes/100 leukoc ytesOrdered By: Cody Gonzalez on 08-03-2023 Lymphocytes/100 WBC (Bld) 25.0 % 19-41 [facility] Blood monocytes/100 leukocyt esOrdered By: Cody Gonzalez on 08-03-2023 Monocytes/100 WBC (Bld) 8.2 % 0-10 [facility] Blood platelet mean volumeOr dered By: Cody Gonzalez on 08-03-2023 Platelet mean volume (Bld) [Entitic vol] 9.3 fL 6.2-12.0 [facility] Determination of erythrocyte mean corpuscular volume (MCV)Ordered By: Cody Gonzalez on 08-03-2023 MCV (RBC) [Entitic vol] 91.4 fL 81-99 [facility] Hematocrit Auto (Bld) [Volum e fraction]Ordered By: Cody Gonzalez on 08-03-2023 Hematocrit (Bld) [Volume fraction] 37.1 % 37-47 [facility] - Chemistry and C hemistry - challengeOrdered By: Cody Gonzalez on 08-03-2023 ALP [Catalytic activity/Vol] 54 U/L 45-117 [facility] ALT [Catalytic activity/Vol] 19 U/L 13-56 [facility] CO2 [Moles/Vol] 30.0 mmol/L 21.0-32.0 [facility] Globulin (S) [Mass/Vol] 3.8 g/dL 2.2-4.2 [facility] Urea nitrogen/Creatinine [Mass ratio] 22.7 mg/mg 10-20 [facility] - Hematology and Cell countsOrdered By: Cody Gonzalez on 08-03-2023 Erythrocyte distribution width (RBC) [Entitic vol] 45.0 fL 35.1-43.9 [facility] Erythrocyte distribution width (RBC) [Ratio] 13.4 % 11.6-14.6 [facility] Immature granulocytes/100 WBC (Bld) 0.300 % 0.0-0.9 [facility] Comment on above: IG% - Immature Granu locytes (promyelocytes, myelocytes and metamyelocytes) > 1% indicates that a LEFT SHIFT is Present. MCH (RBC) [Entitic mass] 30.0 pg 27.0-32.0 [facility] Nucleated RBC/100 WBC (Bld) [Ratio] 0 % 0-5 [facility] MCHC Auto (RBC) [Mass/Vol]Or dered By: Cody Gonzalez on 08-03-2023 MCHC (RBC) [Mass/Vol] 32.9 g/dL 32-36 [facility] No Panel InformationOrdered By: Cody Gonzalez on 08-03-2023 Estimated Creatinine Clearance Calc 49.93 ml/min [facility] Estimated GFR (MDRD) Amer 77 mL/min >60 [facility] Comment on above: GFR Calc Estimated GFR (MDRD) Non-Af Amer 63 mL/min >60 [facility] Comment on above: Non- GFR Calc Troponin I High Sensitivity 4 pg/mL 3.0-54.0 [facility] Comment on above: Please Note: New Мария t Units and Gender Specific Reference Ranges. For more information see Policy Stat Procedure [place] High Sensitivity Troponin (TNIH) and attachments. Platelets bldOrdered By: Marisa Gonzalez on 08-03-2023 Platelets (Bld) [#/Vol] 286 10*3/uL 150-450 [facility] Serum or plasma albumin radha urement (mass/volume)Ordered By: Cody Gonzalez on 08-03-2023 Albumin [Mass/Vol] 3.6 g/dL 3.2-5.0 [facility] Serum or plasma albumin/glob ulin mass ratioOrdered By: Cody Gonzalez on 08-03-2023 Albumin/Globulin [Mass ratio] 0.9 {ratio} 0.9-2.4 [facility] Serum or plasma calcium radha urement (mass/volume)Ordered By: Cody Gonzalez on 08-03-2023 Calcium [Mass/Vol] 9.7 mg/dL 8.5-10.1 [facility] Serum or plasma creatinine m easurement (mass/volume)Ordered By: Cody Gonzalez on 08-03-2023 Creatinine [Mass/Vol] 0.93 mg/dL 0.55-1.02 [facility] Comment on above: The validity of the calculated GFR & GFRAA in patients over 70 years has not been determined. Clinical correlation is essential. Serum or plasma urea nitroge n measurement (mass/volume)Ordered By: Cody Gonzalez on 08-03-2023 Urea nitrogen [Mass/Vol] 21 mg/dL 7-18 [facility] Thin prep Papanicolaou smear with manual screeningOrdered By: Cody Gonzalez on 08-03-2023 Thin prep Papanicolaou smear with manual screening 19 U/L 15-37 [facility] Thin prep Papanicolaou smear with manual screening 4 5-[address] [facility] [address] SINUS WO IVCONon 02-18-20 [facility] CBC W Auto Differential pane l (Bld)on 08-15-2022 Basophils (Bld) [#/Vol] 0.07 10*3/uL <0.11 k/uL [facility] Basophils/100 WBC (Bld) 0.4 % [facility] Differential cell count method Nom (Bld) Auto [facility] Eosinophils (Bld) [#/Vol] 0.09 10*3/uL <0.46 k/uL [facility] Eosinophils/100 WBC (Bld) 0.6 % [facility] Erythrocyte distribution width (RBC) [Ratio] 13.0 % 11.5 - 15.0 % [facility] Hematocrit (Bld) [Volume fraction] 42.8 % 36.0 - 46.0 % [facility] Hemoglobin (Bld) [Mass/Vol] 13.6 g/dL 11.5 - 15.5 g/dL [facility] Immature granulocytes (Bld) [#/Vol] 0.07 10*3/uL <0.10 k/uL [facility] Immature granulocytes/100 WBC (Bld) 0.4 % [facility] Lymphocytes (Bld) [#/Vol] 1.18 10*3/uL 1.00 - 4.00 k/uL [facility] Lymphocytes/100 WBC (Bld) 7.4 % [facility] MCH (RBC) [Entitic mass] 29.3 pg 26.0 - 34.0 pg [facility] MCHC (RBC) [Mass/Vol] 31.8 g/dL 30.5 - 36.0 g/dL [facility] MCV (RBC) [Entitic vol] 92.2 fL 80.0 - 100.0 fL [facility] Monocytes (Bld) [#/Vol] 0.81 10*3/uL <0.87 k/uL [facility] Monocytes/100 WBC (Bld) 5.1 % [facility] Neutrophils (Bld) [#/Vol] 13.75 10*3/uL High 1.45 - 7.50 k/uL [facility] Neutrophils/100 WBC (Bld) 86.1 % [facility] Nucleated RBC (Bld) [#/Vol] <0.01 k/uL [facility] Nucleated RBC/100 WBC (Bld) [Ratio] 0.0 /100 WBC [facility] Platelet mean volume (Bld) [Entitic vol] 9.5 fL 9.0 - 12.7 fL [facility] Platelets (Bld) [#/Vol] 288 10*3/uL 150 - 400 k/uL [facility] RBC (Bld) [#/Vol] 4.64 10*6/uL 3.90 - 5.2 0 m/uL [facility] WBC (Bld) [#/Vol] 15.97 10*3/uL High 3.70 - 11 .00 k/uL [facility] DXA-AXIAL SKELETONon 022 [facility] Clinical Summary: NichelleWayneerum vivas 10-29-2021 MC75 OP Visit Invalid Interpretation Code [facility] Work Phone: Office Visit: Test Result, R m: 1on 10-29-2021 NEGATED: Highlighted rowMRI (magnetic resonance imaging) history of the Lumbar Spine with and without contrast on 10/25/2021 at [facility] Invalid Interpretation Code [facility] Work Phone: NEGATED: Highlighted rowxray history of the Lumbosacral on 08/22/2021 at [facility] Invalid Interpretation Code [facility] Work Phone: Vital Signs Date Time Vital Sign Value Performing Clinician Facility 01-06-2025 09:14-0400 Body mass index (BMI) [Ratio] 22.4 kg/m2 Alona Cruz MD Work Phone: [facility] 01-06-2025 09:14-0400 Body weight 58.97 kg Alona Cruz MD Work Phone: [facility] 01-06-2025 09:14-0400 Diastolic blood pressure 74 mm[Hg] Alona Cruz MD Work Phone: [facility] 01-06-2025 09:14-0400 Heart rate 64 /min Alona Cruz MD Work Phone: [facility] 01-06-2025 09:14-0400 Respiratory rate 16 /min Alona Cruz MD Work Phone: [facility] 01-06-2025 09:14-0400 SaO2% (BldA) [Mass fraction] 96 % Alnoa Cruz MD Work Phone: [facility] 01-06-2025 09:14-0400 Systolic blood pressure 120 mm[Hg] Alona Cruz MD Work Phone: [facility] 12-27-2024 07:32-0400 Body height 162.[address] Tacos Hein MD Work Phone: [facility] 12-27-2024 07:32-0400 Body mass index (BMI) [Ratio] 22.3 kg/m2 Dr. Tacos Hein MD Work Phone: [facility] 12-27-2024 07:32-0400 Body weight 58.[address] Tacos Hein MD Work Phone: [facility] 12-27-2024 07:32-0400 Diastolic blood pressure 74 mm[Hg] Dr. Tacos Hein MD Work Phone: [facility] 12-27-2024 07:32-0400 Heart rate 72 /min Dr. Tacos Hein MD Work Phone: [facility] 12-27-2024 07:32-0400 Respiratory rate 18 /min Dr. Tacos Hein MD Work Phone: [facility] 12-27-2024 07:32-0400 Systolic blood pressure 107 mm[Hg] Dr. Tacos Hein MD Work Phone: [facility] 12-26-2024 13:00-0400 Body mass index (BMI) [Ratio] 22.4 kg/m2 Tacos Hein MD Work Phone: [facility] 12-26-2024 13:00-0400 Body weight 58.97 kg Tacos Hein MD Work Phone: [facility] 12-26-2024 13:00-0400 Diastolic blood pressure 70 mm[Hg] Tacos Hein MD Work Phone: [facility] 12-26-2024 13:00-0400 Heart rate 81 /min Tacos Hein MD Work Phone: [facility] 12-26-2024 13:00-0400 Respiratory rate 16 /min Tacos Hein MD Work Phone: [facility] 12-26-2024 13:00-0400 SaO2% (BldA) [Mass fraction] 98 % Tacos Hein MD Work Phone: [facility] 12-26-2024 13:00-0400 Systolic blood pressure 108 mm[Hg] Tacos Hein MD Work Phone: [facility] 11-21-2024 12:00-0400 Diastolic blood pressure 81 mm[Hg] Adriana Springernorma PSYCHIATRIC AIDES TEACHER Work Phone: 5(788)065-913092 [place] [address] 11-21-2024 12:00-0400 Heart rate 84 /min Adriana Salcedo PSYCHIATRIC AIDES TEACHER Work Phone: [facility] 11-21-2024 12:00-0400 Systolic blood pressure 129 mm[Hg] Adriana Salcedo PSYCHIATRIC AIDES TEACHER Work Phone: 7(791)340-925992 [place] [address] 11-15-2024 12:11-0400 Body temperature 98.6 [degF] Dr. Tacos Hein MD Work Phone: 7(659)633-832015 [place] [address] 11-15-2024 12:11-0400 Diastolic blood pressure 80 mm[Hg] Dr. Tacos Hein MD Work Phone: 8(995)927-414215 [place] [address] 11-15-2024 12:11-0400 Heart rate 75 /min Dr. Tacos Hein MD Work Phone: 2(417)865-382015 [place] [address] 11-15-2024 12:11-0400 Respiratory rate 16 /min Dr. Tacos Hein MD Work Phone: 1(463)429-916115 [place] [address] 11-15-2024 12:11-0400 SaO2% (BldA) [Mass fraction] 98 % Dr. Tacos Hein MD Work Phone: 5(429)180-167115 [place] [address] 11-15-2024 12:11-0400 Systolic blood pressure 123 mm[Hg] Dr. Tacos Hein MD Work Phone: 6(169)082-870740 [place] [address] 11-15-2024 09:02-0400 Body height 162.[address] Tacos Hein MD Work Phone: 4(701)100-392215 [place] [address] 11-15-2024 09:02-0400 Body mass index (BMI) [Ratio] 21.9 kg/m2 Dr. Tacos Hein MD Work Phone: 5(604)757-161340 [place] [address] 11-15-2024 09:02-0400 Body weight 58.[address] Tacos Hein MD Work Phone: 8(510)836-695415 [place] [address] 10-20-2024 09:31-0400 Body height 162.3 cm Cody Masci DO Work Phone: [facility] 10-20-2024 09:31-0400 Body mass index (BMI) [Ratio] 22.57 kg/m2 Cody Masci DO Work Phone: [facility] 10-20-2024 09:31-0400 Body temperature 98.2 [degF] Cody Masci DO Work Phone: [facility] 10-20-2024 09:31-0400 Body weight 59.42 kg Cody Masci DO Work Phone: [facility] 10-20-2024 09:31-0400 Diastolic blood pressure 75 mm[Hg] Cody Masci DO Work Phone: [facility] 10-20-2024 09:31-0400 Heart rate 69 /min Cody Masci DO Work Phone: [facility] 10-20-2024 09:31-0400 SaO2% (BldA) [Mass fraction] 98 % Cody Masci DO Work Phone: [facility] 10-20-2024 09:31-0400 Systolic blood pressure 113 mm[Hg] Cody Masci DO Work Phone: [facility] 10-04-2024 14:42-0400 Body height 163.2 cm Cody Masci DO Work Phone: [facility] 10-04-2024 14:42-0400 Body mass index (BMI) [Ratio] 22.57 kg/m2 Cody Masci DO Work Phone: [facility] 10-04-2024 14:42-0400 Body temperature 97 [degF] Cody Masci DO Work Phone: [facility] 10-04-2024 14:42-0400 Body weight 60.1 kg Cody Masci DO Work Phone: [facility] 10-04-2024 14:42-0400 Diastolic blood pressure 66 mm[Hg] Cody Masci DO Work Phone: [facility] 10-04-2024 14:42-0400 Heart rate 76 /min Cody Julian DO Work Phone: [facility] 10-04-2024 14:42-0400 SaO2% (BldA) [Mass fraction] 96 % Cody Julian DO Work Phone: [facility] 10-04-2024 14:42-0400 Systolic blood pressure 101 mm[Hg] Cody Julian DO Work Phone: [facility] 09-13-2024 08:54-0500 Body mass index (BMI) [Ratio] 21.9 kg/m2 Rody Queener PA-C Work Phone: [facility] 09-13-2024 08:54-0500 Body weight 58.33 kg Rody Queener PA-C Work Phone: [facility] 09-13-2024 08:54-0500 Diastolic blood pressure 77 mm[Hg] Rody Queener PA-C Work Phone: [facility] 09-13-2024 08:54-0500 SaO2% (BldA) [Mass fraction] 96 % Rody Queener PA-C Work Phone: [facility] 09-13-2024 08:54-0500 Systolic blood pressure 111 mm[Hg] Rody Queener PA-C Work Phone: [facility] 08-16-2024 10:51-0500 Body height 163.2 cm Tacos Hein MD Work Phone: [facility] 08-16-2024 10:51-0500 Body mass index (BMI) [Ratio] 22.14 kg/m2 Tacos Hien MD Work Phone: [facility] 08-16-2024 10:51-0500 Body weight 58.97 kg Tacos Hein MD Work Phone: [facility] 08-16-2024 10:51-0500 Diastolic blood pressure 78 mm[Hg] Tacos Hein MD Work Phone: [facility] 08-16-2024 10:51-0500 Heart rate 68 /min Tacos Hein MD Work Phone: [facility] 08-16-2024 10:51-0500 Respiratory rate 16 /min Tacos Hein MD Work Phone: [facility] 08-16-2024 10:51-0500 Systolic blood pressure 112 mm[Hg] Tacos Hein MD Work Phone: [facility] 06-30-2024 09:46-0500 Body mass index (BMI) [Ratio] 22.31 kg/m2 Alona Cruz MD Work Phone: [facility] 06-30-2024 09:46-0500 Body weight 58.97 kg Alona Cruz MD Work Phone: [facility] 06-30-2024 09:46-0500 Heart rate 50 /min Alona Cruz MD Work Phone: [facility] 06-30-2024 09:46-0500 Respiratory rate 16 /min Alona Cruz MD Work Phone: [facility] 06-30-2024 09:46-0500 SaO2% (BldA) [Mass fraction] 98 % Alona Cruz MD Work Phone: [facility] 02-12-2024 13:48-0400 Body mass index (BMI) [Ratio] 22.49 kg/m2 Tacos Hein MD Work Phone: [facility] 02-12-2024 13:48-0400 Body weight 59.42 kg Tacos Hein MD Work Phone: [facility] 02-12-2024 13:48-0400 Diastolic blood pressure 80 mm[Hg] Tacos Hein MD Work Phone: [facility] 02-12-2024 13:48-0400 Heart rate 60 /min Tacos Hein MD Work Phone: [facility] 02-12-2024 13:48-0400 Respiratory rate 14 /min Tacos Hein MD Work Phone: [facility] 02-12-2024 13:48-0400 SaO2% (BldA) [Mass fraction] 98 % Tacos Hein MD Work Phone: [facility] 02-12-2024 13:48-0400 Systolic blood pressure 112 mm[Hg] Tacos Hein MD Work Phone: [facility] 12-01-2023 09:45-0400 Body mass index (BMI) [Ratio] 22.66 kg/m2 Alona Cruz MD Work Phone: [facility] 12-01-2023 09:45-0400 Body weight 59.88 kg Alona Cruz MD Work Phone: [facility] 10-13-2023 09:37-0400 Body temperature 97.7 [degF] Nadia Reddy EXECUTIVE ADMINISTRATIVE ASSISTANT.SNOW RANGER Work Phone: [facility] 10-13-2023 09:37-0400 Body weight 60.8 kg Nadia Reddy EXECUTIVE ADMINISTRATIVE ASSISTANT.SNOW RANGER Work Phone: [facility] 10-13-2023 09:37-0400 Diastolic blood pressure 82 mm[Hg] Nadia Reddy EXECUTIVE ADMINISTRATIVE ASSISTANT.SNOW RANGER Work Phone: [facility] 10-13-2023 09:37-0400 Heart rate 83 /min Nadia Reddy EXECUTIVE ADMINISTRATIVE ASSISTANT.SNOW RANGER Work Phone: [facility] 10-13-2023 09:37-0400 Respiratory rate 18 /min Nadia Reddy EXECUTIVE ADMINISTRATIVE ASSISTANT.SNOW RANGER Work Phone: [facility] 10-13-2023 09:37-0400 SaO2% (BldA) [Mass fraction] 99 % Nadia Reddy EXECUTIVE ADMINISTRATIVE ASSISTANT.SNOW RANGER Work Phone: [facility] 10-13-2023 09:37-0400 Systolic blood pressure 126 mm[Hg] Nadia Reddy EXECUTIVE ADMINISTRATIVE ASSISTANT.SNOW RANGER Work Phone: [facility] 08-03-2023 13:41-0500 Body height 165.1 cm [facility] 08-03-2023 13:41-0500 Body mass index (BMI) [Ratio] 22.1 kg/m2 [facility] 08-03-2023 13:41-0500 Body temperature 96.5 [degF] [facility] 08-03-2023 13:41-0500 Body weight 60.46 kg [facility] 08-03-2023 13:41-0500 Diastolic blood pressure 85 mm[Hg] [facility] 08-03-2023 13:41-0500 Heart rate 82 /min [facility] 08-03-2023 13:41-0500 Respiratory rate 18 /min [facility] 08-03-2023 13:41-0500 SaO2% (BldA) [Mass fraction] 99 % [facility] 08-03-2023 13:41-0500 Systolic blood pressure 129 mm[Hg] [facility] 05-27-2023 09:54-0400 Body weight 59.42 kg Marilou Layla PA-C Work Phone: [facility] 05-27-2023 09:54-0400 Diastolic blood pressure 80 mm[Hg] Marilou Layla PA-C Work Phone: [facility] 05-27-2023 09:54-0400 Heart rate 74 /min Marilou Layla PA-C Work Phone: [facility] 05-27-2023 09:54-0400 Respiratory rate 15 /min Marilou Layla PA-C Work Phone: [facility] 05-27-2023 09:54-0400 SaO2% (BldA) [Mass fraction] 100 % Marilou Layla PA-C Work Phone: [facility] 05-27-2023 09:54-0400 Systolic blood pressure 124 mm[Hg] Marilou Layla PA-C Work Phone: [facility] 04-13-2023 08:35-0400 Body height 162.6 cm Alona Cruz MD Work Phone: [facility] 04-13-2023 08:35-0400 Body weight 59.88 kg Alona Cruz MD Work Phone: [facility] 04-13-2023 08:35-0400 Diastolic blood pressure 68 mm[Hg] Alona Cruz MD Work Phone: [facility] 04-13-2023 08:35-0400 Heart rate 80 /min Alona Cruz MD Work Phone: [facility] 04-13-2023 08:35-0400 Respiratory rate 14 /min Alona Cruz MD Work Phone: [facility] 04-13-2023 08:35-0400 SaO2% (BldA) [Mass fraction] 97 % Alona Cruz MD Work Phone: [facility] 04-13-2023 08:35-0400 Systolic blood pressure 112 mm[Hg] Alona Cruz MD Work Phone: [facility] 02-21-2023 13:03-0400 Body temperature 98.2 [degF] Josephine Athy PA-C Work Phone: [facility] 02-21-2023 13:03-0400 Body weight 59.88 kg Josephine Athy PA-C Work Phone: [facility] 02-21-2023 13:03-0400 Diastolic blood pressure 80 mm[Hg] Josephine Athy PA-C Work Phone: [facility] 02-21-2023 13:03-0400 Heart rate 79 /min Josephine Athy PA-C Work Phone: [facility] 02-21-2023 13:03-0400 Respiratory rate 18 /min Josephine Athy PA-C Work Phone: [facility] 02-21-2023 13:03-0400 SaO2% (BldA) [Mass fraction] 97 % Josephine Athy PA-C Work Phone: [facility] 02-21-2023 13:03-0400 Systolic blood pressure 118 mm[Hg] Josephine Athy PA-C Work Phone: [facility] 12-31-2022 13:28-0400 Body temperature 99.19 [degF] Nadia Reddy EXECUTIVE ADMINISTRATIVE ASSISTANT.SNOW RANGER Work Phone: [facility] 12-31-2022 13:28-0400 Body weight 58.15 kg Nadia Reddy EXECUTIVE ADMINISTRATIVE ASSISTANT.SNOW RANGER Work Phone: [facility] 12-31-2022 13:28-0400 Diastolic blood pressure 80 mm[Hg] Nadia Reddy EXECUTIVE ADMINISTRATIVE ASSISTANT.SNOW RANGER Work Phone: [facility] 12-31-2022 13:28-0400 Heart rate 88 /min Nadia Reddy EXECUTIVE ADMINISTRATIVE ASSISTANT.SNOW RANGER Work Phone: [facility] 12-31-2022 13:28-0400 Respiratory rate 21 /min Nadia Reddy EXECUTIVE ADMINISTRATIVE ASSISTANT.SNOW RANGER Work Phone: [facility] 12-31-2022 13:28-0400 SaO2% (BldA) [Mass fraction] 97 % Nadia Reddy EXECUTIVE ADMINISTRATIVE ASSISTANT.SNOW RANGER Work Phone: [facility] 12-31-2022 13:28-0400 Systolic blood pressure 104 mm[Hg] Nadia Reddy EXECUTIVE ADMINISTRATIVE ASSISTANT.SNOW RANGER Work Phone: [facility] 08-15-2022 08:00-0500 Body height 163.2 cm Tacos Hein MD Work Phone: [facility] 08-15-2022 08:00-0500 Body weight 60.33 kg Tacos Hein MD Work Phone: [facility] 08-15-2022 08:00-0500 Diastolic blood pressure 70 mm[Hg] Tacos Hein MD Work Phone: [facility] 08-15-2022 08:00-0500 Heart rate 83 /min Tacos Hein MD Work Phone: [facility] 08-15-2022 08:00-0500 Respiratory rate 14 /min Tacos Hein MD Work Phone: [facility] 08-15-2022 08:00-0500 Systolic blood pressure 110 mm[Hg] Tacos Hein MD Work Phone: [facility] 01-28-2022 07:07-0400 Body temperature 97.3 [degF] Madison Mariee PA-C Work Phone: [facility] 01-28-2022 07:07-0400 Body weight 60.33 kg Madison Mariee PA-C Work Phone: [facility] 01-28-2022 07:07-0400 Diastolic blood pressure 70 mm[Hg] Madison Mariee PA-C Work Phone: [facility] 01-28-2022 07:07-0400 Heart rate 68 /min Madison Mariee PA-C Work Phone: [facility] 01-28-2022 07:07-0400 Respiratory rate 16 /min Madison Mariee PA-C Work Phone: [facility] 01-28-2022 07:07-0400 Systolic blood pressure 106 mm[Hg] Madison Mariee PA-C Work Phone: [facility] 12-17-2021 08:07-0400 Body temperature 97 [degF] Madison Mariee PA-C Work Phone: [facility] 12-17-2021 08:07-0400 Body weight 59.88 kg Madison Mariee PA-C Work Phone: [facility] 12-17-2021 08:07-0400 Diastolic blood pressure 70 mm[Hg] Madison Mariee PA-C Work Phone: [facility] 12-17-2021 08:07-0400 Heart rate 84 /min Madison Mariee PA-C Work Phone: [facility] 12-17-2021 08:07-0400 Respiratory rate 16 /min Madison Mariee PA-C Work Phone: [facility] 12-17-2021 08:07-0400 Systolic blood pressure 100 mm[Hg] Madison Mariee PA-C Work Phone: [facility] NEGATED: Highlighted [id number] 08:27-0400 Body height 165.1 cm Susie Hudspeth AT [facility] Work Phone: NEGATED: Highlighted [id number] 08:270400 Body height 165 cm Susei Hudspeth AT [facility] Work Phone: NEGATED: Highlighted [id number] 08:27-0400 Body mass index (BMI) [Ratio] 21.71 kg/m2 Susie Hudspeth AT [facility] Work Phone: NEGATED: Highlighted [id number] 08:270400 Body weight 58.97 kg Susie Hudspeth AT [facility] Work Phone: NEGATED: Highlighted [id number] 08:0400 Body weight 59 kg Susie Hudspeth AT [facility] Work Phone: Encounters Encounter Date Encounter Type Care Provider Facility Start: 02-02-2025 ambulatory Tacos Hein Facility :[facility] Start: 01-16-2025 End: 01-16-2025 ambulatory Barrera Mejia PT [facility] Comment on above: Spinal stenosis of l umbar region without neurogenic claudication (Primary Dx) Start: 01-06-2025 End: 01-06-2025 Patient encounter procedure Alona Cruz MD Work Phone: Pulmonary Medicine Comment on above: Mild intermittent as thma without complication (HCC) (Primary Dx) Start: 01-06-2025 End: 01-06-2025 ambulatory ALONA CRUZ Facility:[facility] Start: 12-30-2024 End: 12-30-2024 ambulatory Barrera Mejia PT [facility] Comment on above: Spinal stenosis of l umbar region without neurogenic claudication (Primary Dx) Start: 12-27-2024 End: 12-27-2024 Chart abstracting Tacos Hein MD Work Phone: [facility] Comment on above: Outside Cardiology Start: 12-27-2024 End: 12-27-[address] Kailee Mcnair MD -[facility] Work Phone: Start: 12-27-2024 End: 12-27-2024 ambulatory Tacos Hein Facility:[facility] Start: 12-26-2024 End: 12-26-2024 Patient encounter procedure Tacos Hein MD Work Phone: [facility] Comment on above: SI (sacroiliac) pain (Primary Dx); Greater trochanteric bursitis of right hip; Numbness and tingling of both feet Start: 12-26-2024 End: 12-26-2024 ambulatory TACOS HEIN Facility:[facility] Start: 12-12-2024 End: 12-12-2024 Telephone encounter Tacos Hein MD Work Phone: [facility] Comment on above: [facility] f[facility]u Start: 12-11-2024 End: 12-22-2024 Follow-up encounter Tess Navarrete APRN.SNOW RANGER Work Phone: [facility] Comment on above: Results Start: 11-29-2024 End: 11-29-2024 ambulatory Barrera Mejia PT [facility] Comment on above: Spinal stenosis of l umbar region without neurogenic claudication (Primary Dx) Start: 11-21-2024 End: 11-21-2024 ambulatory Adriana Salcedo PSYCHIATRIC AIDES TEACHER Work Phone: [facility] Comment on above: Spinal stenosis of l umbar region without neurogenic claudication (Primary Dx) Start: 11-18-2024 End: 11-18-2024 ambulatory TACOS HEIN Facility:[facility] Start: 11-15-2024 End: 11-15-2024 Emergency department patient visit Dr. Tacos Hein MD Work Phone: -Emergency Department Work Phone: Start: 11-15-2024 End: 11-15-2024 ambulatory Adriana Kasdanielba PSYCHIATRIC AIDES TEACHER Work Phone: [facility] Start: 11-10-2024 End: 11-10-2024 Refill Madison Mariee PA-C Work Phone: [facility] Comment on above: Refill Request Start: 11-08-2024 End: 11-08-2024 ambulatory Adriana Salcedo PSYCHIATRIC AIDES TEACHER Work Phone: [facility] Comment on above: Spinal stenosis of l umbar region without neurogenic claudication (Primary Dx) Start: 10-24-2024 End: 10-24-2024 ambulatory Barrera Mejia PT [facility] Comment on above: Spinal stenosis of l umbar region without neurogenic claudication (Primary Dx) Start: 10-20-2024 End: 10-20-2024 ambulatory Cody Julian DO Work Phone: Hematology/Oncology Comment on above: Increased immunoglob ulin (Primary Dx) Start: 10-20-2024 End: 10-20-2024 Patient encounter procedure Cody Julian DO Work Phone: Hematology/Oncology Start: 10-12-2024 End: 12-12-2024 Follow-up encounter Rody Pablo PA-C Work Phone: Neurology Start: 10-12-2024 End: 10-12-2024 ambulatory TACOS HEIN Facility:[facility] Start: 10-12-2024 End: 10-12-2024 Subsequent hospital visit by physician [facility] [employer] [facility] (I-Stat/1.5t) Work Phone: Radiology Comment on above: Spinal stenosis of l umbar region without neurogenic claudication [M48.061] Start: 10-07-2024 End: 10-11-2024 Follow-up encounter Rody Pablo PA-C Work Phone: Neurology Comment on above: Results Start: 10-07-2024 End: 10-07-2024 ambulatory TACOS HEIN Neurology Comment on above: EMG Start: 10-07-2024 End: 10-07-2024 Patient encounter procedure Emg 2 Neur Francisca Mc (Max Weight: 850) Neurology Start: 10-05-2024 End: 10-05-2024 ambulatory TACOS HEIN Facility:[facility] Start: 10-05-2024 End: 10-05-2024 Nursing evaluation of patient and report Mi Nurse Work Phone: [facility] Comment on above: Osteoporosis, unspec ified osteoporosis type, unspecified pathological fracture presence (Primary Dx) Start: 10-04-2024 End: 10-04-2024 ambulatory Cody Julian DO Work Phone: Hematology/Oncology Comment on above: Gammopathy, monoclon al (Primary Dx) Start: 10-04-2024 End: 10-04-2024 Patient encounter procedure Cody Rutledge Eliel DO Work Phone: Hematology/Oncology Start: 09-23-2024 End: 09-26-2024 Refill Madison Mariee PA-C Work Phone: [facility] Comment on above: Refill Request Start: 09-22-2024 End: 09-22-2024 Telephone encounter Tacos Hein MD Work Phone: [facility] Comment on above: Orders Start: 09-19-2024 End: 09-19-2024 Follow-up encounter Tacos Hein MD Work Phone: [facility] Comment on above: Osteoporosis, unspec ified osteoporosis type, unspecified pathological fracture presence (Primary Dx) Start: 09-19-2024 End: 09-19-2024 ambulatory TACOS HEIN Facility:[facility] Start: 09-19-2024 End: 09-19-2024 Subsequent hospital visit by physician [facility] Work Phone: Radiology Comment on above: Osteoporosis, unspec ified osteoporosis type, unspecified pathological fracture presence [M81.0] Start: 09-13-2024 End: 09-13-2024 Patient encounter procedure Rody Pablo PA-C Work Phone: Neurology Comment on above: Neuropathy (Primary Dx); Peroneal neuropathy, unspecified laterality Start: 09-13-2024 End: 09-13-2024 ambulatory TACOS HEIN Facility:[facility] Start: 09-01-2024 End: 09-01-2024 Telephone encounter Tacos Hein MD Work Phone: [facility] Comment on above: Results (EMG) Start: 08-31-2024 ambulatory Jackson Mcallister Facility:[facility] Start: 08-31-2024 Non-patient / Non-visit Dr. Jackson calix MD -[facility]- Start: 08-31-2024 End: 08-31-[address] Tacos Hein MD -Pulmonary Services/Neurology Work Phone: Start: 08-31-2024 End: 08-31-2024 ambulatory Tacos Hein Facility:[facility] Start: 08-23-2024 End: 08-23-2024 ambulatory Madison Mariee PA-C Work Phone: [facility] Comment on above: Meloxicam Start: 08-22-2024 End: 08-22-2024 Refill Madison Mariee PA-C Work Phone: [facility] Comment on above: Refill Request Appointment Start: 08-17-2024 End: 08-17-2024 Telephone encounter Tacos Hein MD Work Phone: [facility] Comment on above: Results Start: 08-16-2024 End: 08-16-2024 ambulatory TACOS HEIN Facility:[facility] Start: 08-16-2024 End: 08-16-2024 ambulatory TACOS HEIN Facility:[facility] Start: 08-16-2024 End: 08-16-2024 Patient encounter procedure Tacos Hein MD Work Phone: [facility] Comment on above: Medicare [facility], subsequent (Primary Dx); Dyslipidemia; Fibromyalgia; Insomnia, unspecified type; Restless leg syndrome; Vitamin D deficiency; Advance directive discussed with patient; Mild intermittent asthma without complication; Osteoporosis, unspecified osteoporosis type, unspecified pathological fracture presence; Numbness and tingling of both feet; Encounter for screening examination for other mental health and behavioral disorders; Screening for depression Start: 08-12-2024 End: 08-12-2024 ambulatory TACOS HEIN Facility:[facility] Start: 08-05-2024 End: 01-28-2025 ambulatory Alona Cruz MD Work Phone: Pulmonary Medicine Comment on above: Qvar Start: 06-30-2024 End: 06-30-2024 [facility] Facility:[facility] Start: 06-30-2024 End: 06-30-2024 Patient encounter procedure Alona Cruz MD Work Phone: Pulmonary Medicine Comment on above: Mild intermittent as thma without complication (Primary Dx); Hoarseness of voice Start: 06-28-2024 End: 06-28-2024 Refill Tess Navarrete EXECUTIVE ADMINISTRATIVE ASSISTANT.SNOW RANGER Work Phone: Family [facility] Comment on above: Refill Request Start: 06-04-2024 End: 06-06-2024 Refill Marilou Rich PA-C Work Phone: Pulmonary Medicine Comment on above: Refill Request Start: 05-31-2024 End: 05-31-2024 Refill Madison Mariee PA-C Work Phone: [facility] Comment on above: Refill Request Start: 05-11-2024 End: 05-11-2024 Refill Madison Mariee PA-C Work Phone: [facility] Comment on above: Refill Request Start: 04-06-2024 End: 04-06-2024 [facility] Facility:[facility] Start: 04-06-2024 End: 04-06-2024 Nursing evaluation of patient and report Mi Nurse Work Phone: Family [facility] [place] Comment on above: Osteoporosis, unspec ified osteoporosis type, unspecified pathological fracture presence (Primary Dx) Start: 04-03-2024 End: 04-04-2024 Refill Tess Navarrete EXECUTIVE ADMINISTRATIVE ASSISTANT.SNOW RANGER Work Phone: [facility] Comment on above: Refill Request Start: 03-09-2024 Refill Madison Sanchez on PA-C Work Phone: [facility] Comment on above: Refill Request Start: 03-05-2024 Refill Alona Cruz MD Work Phone: Pulmonary Medicine Comment on above: Refill Request Start: 02-17-2024 ambulatory Jeannie Pool [facility] Comment on above: Cholesterol informat ion Start: 02-17-2024 E-mail encounter stormy m caregiver Jeannie Pool MA [facility] Start: 02-17-2024 Telephone encounter Tacos Hein MD Work Phone: [facility] Comment on above: Results Start: 02-12-2024 End: 02-12-2024 ambulatory TACOS HEIN Facility:[facility] Start: 02-12-2024 End: 02-12-2024 Patient encounter procedure Tacos Hein MD Work Phone: [facility] Comment on above: Accelerated atrioven tricular junctional rhythm (Primary Dx); Subclinical hypothyroidism; Dyslipidemia; Medication management; Vitamin D deficiency Start: 02-08-2024 Refill Tacos ling MD Work Phone: [facility] Comment on above: Refill Request Start: 01-29-2024 ambulatory [place] Facility:[facility] Start: 01-29-2024 End: 01-29-2024 ambulatory Achintya Moya Facility:[facility] Start: 12-11-2023 ambulatory Tacos ling MD Work Phone: [facility] Comment on above: Medication Renewal P roblem Start: 12-01-2023 End: 12-01-2023 Patient encounter procedure Alona Cruz MD Work Phone: Pulmonary Medicine Comment on above: Mild intermittent as thma without complication (Primary Dx); Seasonal allergies Start: 11-18-2023 ambulatory Alona Cruz MD Work Phone: Pulmonary Medicine Comment on above: Asmanex Start: 11-05-2023 ambulatory Alona Cruz MD Work Phone: Pulmonary Medicine Comment on above: Mometasone Start: 10-29-2023 ambulatory Alona Cruz MD Work Phone: Pulmonary Medicine Comment on above: Prescription change Montelukast Start: 10-13-2023 End: 10-13-2023 Patient encounter procedure Nadia Reddy EXECUTIVE ADMINISTRATIVE ASSISTANT.SNOW RANGER Work Phone: [facility] Comment on above: Conjunctivitis of ri ght eye, unspecified conjunctivitis type (Primary Dx); Rhinosinusitis Start: 09-18-2023 End: 09-18-2023 Nursing evaluation of patient and report Mi Nurse Work Phone: [facility] Comment on above: Osteoporosis, unspec ified osteoporosis type, unspecified pathological fracture presence (Primary Dx) Start: 09-09-2023 Telephone encounter Tacos Hein MD Work Phone: [facility] Comment on above: Orders Start: 09-07-2023 ambulatory Tacos ling MD Work Phone: [facility] Comment on above: Reschedule Injection Start: 08-11-2023 Non-patient / Non-visit Dr. Juan Carlos Hein Work Phone: [facility] Start: 08-11-2023 End: 08-11-[address] Tacos Hein Work Phone: [facility] Work Phone: Start: 08-11-2023 End: 08-11-[address] Tacos Hein Work Phone: [facility] Work Phone: Start: 08-03-2023 End: 08-03-2023 Emergency department patient visit [facility] Work Phone: Start: 05-27-2023 End: 05-27-2023 Office outpatient visit 25 minutes Marilou Rich PA-C Work Phone: Pulmonary Medicine Comment on above: Mild persistent asth ma without complication (Primary Dx); Need for influenza vaccination; Deviated nasal septum; History of seasonal allergies Start: 04-14-2023 Telephone encounter Alona Cruz MD Work Phone: Pulmonary Medicine Comment on above: Insurance Authorizat ion Start: 04-13-2023 End: 04-13-2023 Patient encounter procedure Alona Cruz MD Work Phone: Pulmonary Medicine Comment on above: Mild persistent asth ma without complication (Primary Dx); Deviated nasal septum; History of seasonal allergies Start: 03-26-2023 Orders Only Alona Cruz MD Work Phone: [facility] [place] Comment on above: Dyspnea, unspecified type (Primary Dx) Start: 03-19-2023 Refill Tacos ling MD Work Phone: [facility] Comment on above: Refill Request Prescriptions Start: 02-21-2023 End: 02-21-2023 Patient encounter procedure Josephine Iniguez PA-C Work Phone: [facility] Comment on above: Allergic reaction, i nitial encounter (Primary Dx) Start: 02-17-2023 End: 02-17-2023 Subsequent hospital visit by physician Ct [facility] (I-Stat) Work Phone: [facility] Comment on above: Chronic sinusitis, u nspecified location [J32.9] Start: 01-29-2023 Chart abstracting Tacos babcock MD Work Phone: [facility] Comment on above: Physical Therapy Start: 01-29-2023 End: 01-29-2023 Nursing evaluation of patient and report Mi Nurse Work Phone: [facility] Comment on above: Osteoporosis, unspec ified osteoporosis type, unspecified pathological fracture presence (Primary Dx) Start: 12-31-2022 End: 12-31-2022 Patient encounter procedure Nadia Maureen EXECUTIVE ADMINISTRATIVE ASSISTANT.SNOW RANGER Work Phone: [facility] Comment on above: Acute otitis media, left (Primary Dx); URI, acute Start: 12-24-2022 Telephone encounter Tom vazquez DO Work Phone: Orthopaedics Comment on above: Release Of Medical R ecords Start: 09-12-2022 ambulatory Tess (Pss) [facility] Comment on above: Population Health Na vigation Outreach ([employer] Care Gaps) Start: 08-28-2022 Telephone encounter Tacos Hein MD Work Phone: [facility] [place] Comment on above: Symptoms Start: 08-18-2022 Telephone encounter Tacos Hein MD Work Phone: [facility] Comment on above: Results Start: 08-15-2022 End: 08-15-2022 Patient encounter procedure Tacos Hein MD Work Phone: [facility] [place] Comment on above: Medicare annual well ness visit, subsequent (Primary Dx); Dyslipidemia; Intrinsic asthma; Vitamin D deficiency; Restless leg syndrome; Insomnia, unspecified type; Fibromyalgia; Lumbar degenerative disc disease; Medication management; Advance directive discussed with patient; Neck pain; Viral sinusitis Start: 07-24-2022 Telephone encounter Jose A novoa MD Work Phone: Orthopaedics Comment on above: Results Start: 07-16-2022 End: 07-16-2022 Nursing evaluation of patient and report Mi Nurse Work Phone: [facility] [place] Comment on above: Osteoporosis, unspec ified osteoporosis type, unspecified pathological fracture presence (Primary Dx) Start: 07-07-2022 End: 07-07-2022 Patient encounter procedure Jose A Burgess MD Work Phone: Orthopaedics Comment on above: Ganglion cyst of fin bib of right hand (Primary Dx) Refill Request Start: 07-01-2022 Telephone encounter Jose A novoa MD Work Phone: Orthopaedics Comment on above: Patient Question Start: 06-30-2022 Telephone encounter Tacos Hein MD Work Phone: [facility] [place] Comment on above: Orders Start: 06-07-2022 Refill Tacos ling MD Work Phone: [facility] Comment on above: Refill Request Start: 04-21-2022 End: 04-21-2022 Patient encounter procedure Anna Delcid PA-C Work Phone: Orthopaedics Comment on above: Ganglion cyst of fin bib of right hand (Primary Dx) Start: 03-10-2022 End: 03-10-2022 Refill Madison Mariee PA-C Work Phone: [facility] Comment on above: Refill Request Results Osteoporosis, unspec ified osteoporosis type, unspecified pathological fracture presence [M81.0] Start: 02-27-2022 Telephone encounter Jose A novoa MD Work Phone: Orthopaedics Comment on above: Schedule Surgery Start: 02-25-2022 Telephone encounter Madison serna PA-C Work Phone: [facility] Comment on above: Results Start: 02-20-2022 End: 02-20-2022 Patient encounter procedure Jose A Burgess MD Work Phone: Orthopaedics Comment on above: Ganglion cyst Start: 02-20-2022 End: 02-20-2022 [facility] Start: 01-28-2022 End: 01-28-2022 Patient encounter procedure Madison Mariee PA-C Work Phone: [facility] Comment on above: Dyslipidemia (Primar y Dx); Insomnia, unspecified type; Lumbar degenerative disc disease; Osteoporosis, unspecified osteoporosis type, unspecified pathological fracture presence; Inflammatory arthritis; Screening for colon cancer; Restless leg syndrome; Intrinsic asthma; Fibromyalgia; Vitamin D deficiency; Ganglion cyst; Age-related osteoporosis without current pathological fracture Start: 01-14-2022 End: 01-14-2022 Nursing evaluation of patient and report Mi Nurse Work Phone: [facility] Comment on above: Osteoporosis, unspec ified osteoporosis type, unspecified pathological fracture presence (Primary Dx) Start: 12-17-2021 End: 12-17-2021 Patient encounter procedure Madison Mariee PA-C Work Phone: [facility] Comment on above: Fibromyalgia (Primar y Dx); Seborrheic dermatitis of scalp; Hand arthritis; Ganglion cyst Start: 11-01-2021 ambulatory Tess Acosta (Pss) [facility] [place] Comment on above: Population Health Na vigation Outreach ([employer] Care Gaps) Start: 09-17-2021 End: 09-17-2021 [facility] Start: 08-14-2021 Patient encounter procedure Tess Acosta [facility] Work Phone: Start: 07-30-2021 End: 07-30-2021 Discharged Recurring [facility] Procedures Date Procedure Procedure Detail Performing Clinician Start: 11-15-2024 Plain chest X-ray Dr. Sandoval Hein MD Work Phone: Start: 11-15-[address] Tacos Hein MD Work Phone: Start: 10-12-2024 Mri spinal canal lum bar w/o contrast material Rody Pablo PA-C Work Phone: Start: 10-07-2024 Nerve conduction stephan dies 5-6 studies Rody PIPER-C Work Phone: Start: 09-19-2024 BD DXA TRABECULAR SAMARA NE SCORE (TBS) Tacos Hein MD Work Phone: Start: 09-19-2024 Dxa bone density stephan dy 1/> sites axial skel Tacos Hein MD Work Phone: Start: 08-16-2024 Adult depression screening assessment Tacos Hein MD Work Phone: Start: 08-12-2024 Lipid 1995 panel - S kelly or Plasma Tacos Hein MD Work Phone: Start: 02-12-2024 Lipid 1996 panel - S kelly or Plasma Jeannie Pool MA Start: 08-03-2023 Plain chest X-ray Start: 05-27-2023 INFLUENZA VACCINE, P RSV FREE, AGE 65+ YR, HIGH DOSE, QUADRIVALENT (FLUZONE HIGH-DOSE) Marilou Rich PA-C Work Phone: Start: 02-17-2023 Ct maxillofacial w/o contrast material [place] Mariee PA-C Work Phone: Start: 02-12-2023 Lipid 1996 panel - S kelly or Plasma Alona Cruz MD Work Phone: Start: 03-10-2022 Dxa bone density stephan dy 1/> sites axial natalia Mariee PA-C Work Phone: Start: 01-03-2008 Ghassan ugarte NEGATED: Highlighted rowStart: 10-29-2021 End: 10-29-2021 Documentation of current medications Susie Limon AT Plan of Treatment Date Care Activity Detail Author Start: 08-12-2029 Lipid panel Lipid Screening [facility] Start: 02-11-2029 Lipid panel Lipid Screening [facility] Start: 02-09-2029 Urine microalbumin profile [facility] Start: 02-13-2028 Lipid 1996 panel - S kelly or Plasma Lipid Screening [facility] Start: 02-13-2028 Lipid panel Lipid Screening [facility] Start: 02-13-2028 LIPID SCREEN LIPID SCREEN [facility] Start: 08-15-2027 LIPID SCREEN LIPID SCREEN [facility] Start: 08-12-2027 Diabetes Screening Diabetes Screenin g [facility] Start: 02-24-2027 LIPID SCREEN LIPID SCREEN [facility] Start: 02-11-2027 Diabetes Screening Diabetes Screenin g [facility] Start: 09-19-2026 Screening for osteoporosis Bone Density Screening [facility] Start: 08-15-2026 LIPID SCREEN LIPID SCREEN [facility] Start: 02-12-2026 DIABETES SCREEN DIABETES SCREEN [facility] Start: 02-12-2026 Diabetes Screening Diabetes Screenin g [facility] Start: 12-26-2025 Annual PCP Team Performance Solutions Specialist jakob Disease Visit Annual PCP Team Chronic Disease Visit [facility] Start: 11-18-2025 Annual PCP Team [employer] Solutions Specialist jakob Disease Visit Annual PCP Team Chronic Disease Visit [facility] Start: 08-16-2025 Annual PCP Team [employer] Specialist jakob Disease Visit Annual PCP Team Chronic Disease Visit [facility] Start: 08-16-2025 Anxiety Screening Anxiety Screening [facility] Start: 08-16-2025 Depression Screening Depression Scre ening [facility] Start: 08-16-2025 RSV Vaccine (1 - Ris k 60-74 years 1-dose series) RSV Vaccine (1 - Risk 60-74 years 1-dose series) [facility] Comment on above: Postponed from 02/05 (Insurance Coverage) Start: 08-15-2025 DIABETES SCREEN [facility] Start: 05-04-2025 End: 05-04-2025 ambulatory 05/04/2025 9:30 AM EDT Visit (SP) Office Hematology/Oncology [address] [place] [address] Cody [place] DO [address] [place] [address] 6MO OV/LABS 04/24* Hematology/Oncology Comment on above: 6MO OV/LABS 04/24* Start: 04-24-2025 End: 04-24-2025 ambulatory 04/24/2025 8:00 AM EDT Results Only [place] [facility] [address] [place] [address] CBC/CMP/Myeloma labs/24 hour urine for M-spike [facility] Comment on above: CBC/CMP/Myeloma labs /24 hour urine for M-spike Start: 04-07-2025 End: 04-07-2025 Nursing evaluation of patient and report 04/07/2025 8:00 AM EDT Nurse Visit [facility] [address] [place] [place] [address] Nurse, Ma [address] [place] [address] [facility] [place] Comment on above: [facility] Start: 02-24-2025 DIABETES SCREEN DIABETES SCREEN [facility] Start: 02-20-2025 End: 02-20-2025 ambulatory 02/20/2025 8:15 AM EDT OT/PT/Speech Visit [facility] [address] [place] [address] Barrera Mejia PT M48.061 (ICD-10-CM) - Spinal stenosis of lumbar region without neurogenic claudication P [facility] Comment on above: M48.061 (ICD-10-CM) - Spinal stenosis of lumbar region without neurogenic claudication P Start: 02-14-2025 End: 02-14-2025 Patient encounter procedure 02/14/2025 8:20 AM EDT Office Visit [facility] [address] [facility] [address] [place] Mariee PA-C [address] [place] [address] 6 month follow up [facility] [place] Comment on above: 6 month follow up Start: 02-13-2025 End: 02-13-2025 ambulatory 02/13/2025 8:15 AM EDT OT/PT/Speech Visit [facility] [address] [place] [address] Barrera Mejia, PT M48.061 (ICD-10-CM) - Spinal stenosis of lumbar region without neurogenic claudication P [facility] Comment on above: M48.061 (ICD-10-CM) - Spinal stenosis of lumbar region without neurogenic claudication P Start: 02-11-2025 Annual PCP Team Performance Solutions Specialist jakob Disease Visit Annual PCP Team Chronic Disease Visit [facility] Start: 02-03-2025 End: 05-05-2025 LIPID PANEL, NONFASTING LIPID PANEL, NONFASTING Lab Routine Dyslipidemia Expected: 02/03/2025, Expires: 05/05/2025 [facility] Comment on above: Expected: 02/03/2025 , Expires: 05/05/2025 Start: 01-30-2025 End: 01-30-2025 ambulatory 01/30/2025 8:00 AM EDT OT/PT/Speech Visit [facility] [address] [place] [address] Adriana Salcedo, PSYCHIATRIC AIDES TEACHER [address] [place] [address] M48.061 (ICD-10-CM) - Spinal stenosis of lumbar region without neurogenic claudication P [facility] Comment on above: M48.061 (ICD-10-CM) - Spinal stenosis of lumbar region without neurogenic claudication P Start: 01-16-2025 End: 01-16-2025 ambulatory 01/16/2025 3:30 PM EDT OT/PT/Speech Visit [facility] [address] [place] [address] Barrera Mejia, PT M48.061 (ICD-10-CM) - Spinal stenosis of lumbar region without neurogenic claudication P [facility] Comment on above: M48.061 (ICD-10-CM) - Spinal stenosis of lumbar region without neurogenic claudication P Start: 01-06-2025 End: 01-06-2025 Patient encounter procedure 01/06/2025 9:30 AM EDT Office Visit Pulmonary Medicine [address] [place] [address] Alona Cruz MD [address] [place] [address] 6 month f/u Pulmonary Medicine Comment on above: 6 month f/u Start: 12-30-2024 End: 12-30-2024 ambulatory 12/30/2024 9:00 AM EDT OT/PT/Speech Visit [facility] [address] [place] [address] Barrera Mejia, PT M48.061 (ICD-10-CM) - Spinal stenosis of lumbar region without neurogenic claudication [facility] Comment on above: M48.061 (ICD-10-CM) - Spinal stenosis of lumbar region without neurogenic claudication Start: 12-27-2024 Evaluation of diagno stic study results [facility] Start: 12-26-2024 End: 12-26-2024 Patient encounter procedure 12/26/2024 1:00 PM EDT Office Visit [facility] [address] [place] [address] Tacos Hein MD [address] [place] [address] [facility], [address] [place] [address] (ph [phone]). Severe back pain. 12/11/24 [facility] Comment on above: [facility] ER, [facility] [address] (ph [phone]). Severe back pain. 12/11/24 Start: 11-29-2024 End: 11-29-2024 ambulatory 11/29/2024 9:15 AM EDT OT/PT/Speech Visit [facility] [address] [place] [address] Barrera Mejia, PT M48.061 (ICD-10-CM) - Spinal stenosis of lumbar region without neurogenic claudication [facility] Comment on above: M48.061 (ICD-10-CM) - Spinal stenosis of lumbar region without neurogenic claudication Start: 11-22-2024 End: 11-22-2024 ambulatory 11/22/2024 8:00 AM EDT OT/PT/Speech Visit [facility] [address] [place] [address] Adriana Salcedo, PSYCHIATRIC AIDES TEACHER [address] [place] [address] M48.061 (ICD-10-CM) - Spinal stenosis of lumbar region without neurogenic claudication [facility] Comment on above: M48.061 (ICD-10-CM) - Spinal stenosis of lumbar region without neurogenic claudication Start: 11-18-2024 End: 11-18-2024 Patient encounter procedure 11/18/2024 7:20 AM EDT Office Visit [facility] [place] [address] [place] [address] [place] Mariee PA-C [address] [place] [address] [facility] ER 11/15 follow up with SVT, needs Foster Care Social Worker referral [facility] Comment on above: [facility] ER 11/15 follow u p with SVT, needs Foster Care Social Worker referral Start: 11-15-2024 [facility] Start: 11-15-2024 [facility] Start: 11-15-2024 End: 11-15-2024 ambulatory 11/15/2024 8:45 AM EDT OT/PT/Speech Visit [facility] [address] [place] [address] Joy Adriana, PSYCHIATRIC AIDES TEACHER [address] [place] [address] M48.061 (ICD-10-CM) - Spinal stenosis of lumbar region without neurogenic claudication [facility] Comment on above: M48.061 (ICD-10-CM) - Spinal stenosis of lumbar region without neurogenic claudication Start: 11-08-2024 End: 11-08-2024 ambulatory 11/08/2024 8:45 AM EDT OT/PT/Speech Visit [facility] [address] [place] [address] Rachealonrma Adriana, PSYCHIATRIC AIDES TEACHER [address] [place] [address] M48.061 (ICD-10-CM) - Spinal stenosis of lumbar region without neurogenic claudication [facility] Comment on above: M48.061 (ICD-10-CM) - Spinal stenosis of lumbar region without neurogenic claudication Start: 10-24-2024 End: 10-24-2024 ambulatory 10/24/2024 9:00 AM EDT OT/PT/Speech Visit [facility] [address] [place] [address] Barrera Mejia, PT Determine why I am being sent to PT. [facility] Comment on above: Determine why I am b eing sent to PT. Start: 10-20-2024 End: 10-20-2024 ambulatory 10/20/2024 9:10 AM EDT Visit (SP) Office Hematology/Oncology [address] [place] [address] Cody [place] DO [address] [place] [address] 2WK OV/LABS 10/04* Hematology/Oncology Comment on above: 2WK OV/LABS 10/04* Start: 10-12-2024 End: 10-12-2024 Patient encounter procedure 10/12/2024 7:00 AM EDT Appointment Radiology [address] [place] [address] Spinal stenosis of lumbar region without neurogenic claudication [M48.061] Radiology Comment on above: Spinal stenosis of l umbar region without neurogenic claudication [M48.061] Start: 10-07-2024 End: 10-07-2024 ambulatory Neurology Comment on above: Neuropathy r L LE Start: 10-05-2024 End: 10-05-2024 Nursing evaluation of patient and report 10/05/2024 2:15 PM EDT Nurse Visit [facility] [address] [place] [address] Nurse, Ma [address] [place] [address] [facility] Comment on above: [facility] Start: 10-05-2024 End: 10-05-2024 Nursing evaluation of patient and report 10/05/2024 11:30 AM EDT Nurse Visit [facility] [place] [address] [place] [address] Nurse, Ma [address] [place] [address] [facility] Comment on above: [facility] Start: 10-04-2024 End: 10-04-2024 [facility] visit new patient 10/04/2024 3:00 PM EDT Visit (SP) Office Hematology/Oncology [address] [place], [place] [id number] Cody [place] DO [address] [place] [address] New patient Hematology/Oncology Comment on above: New patient Start: 10-04-2024 End: 01-03-2025 MONOCLONAL PROTEIN, SERUM (BLOOD) [facility] Work Phone: Comment on above: Expected: 10/04/2024 , Expires: 01/03/2025 Start: 10-04-2024 End: 01-03-2025 PROTEIN ELECTROPHORESIS SERUM W/INTERP [facility] Comment on above: Expected: 10/04/2024 , Expires: 01/03/2025 Start: 10-04-2024 End: 10-04-2024 Nursing evaluation of patient and report 10/04/2024 8:30 AM EDT Nurse Visit [facility] [place] [address] [place], [place] [address] Nurse, Ma [address] [place], [place] [address] [facility] [place] Comment on above: David Start: 09-19-2024 End: 09-19-2024 Patient encounter procedure 09/19/2024 1:40 PM EST Appointment Radiology [address] [place] [address] Osteoporosis, unspecified osteoporosis type, unspecified pathological fracture presence [M81.0] Radiology Comment on above: Osteoporosis, unspec ified osteoporosis type, unspecified pathological fracture presence [M81.0] Start: 09-13-2024 End: 12-13-2024 C reactive protein [Mass/volume] in Serum or Plasma [facility] Comment on above: Expected: 09/13/2024 , Expires: 12/13/2024 Start: 09-13-2024 End: 12-13-2024 Erythrocyte sedimentation rate [facility] Comment on above: Expected: 09/13/2024 , Expires: 12/13/2024 Start: 09-13-2024 End: 12-13-2024 PROTEIN ELECTROPHORESIS SERUM W/INTERP [facility] Comment on above: Expected: 09/13/2024 , Expires: 12/13/2024 Start: 09-13-2024 End: 12-13-2024 Pyridoxine [Mass/volume] in Serum or Plasma [facility] Comment on above: Expected: 09/13/2024 , Expires: 12/13/2024 Start: 09-13-2024 End: 12-13-2024 VITAMIN B1 (THIAMINE), WHOLE BLOOD [facility] Comment on above: Expected: 09/13/2024 , Expires: 12/13/2024 Start: 08-16-2024 End: 11-15-2024 Cobalamin (Vitamin B12) [Mass/volume] in Serum or Plasma [facility] Comment on above: Expected: 08/16/2024 , Expires: 11/15/2024 Start: 08-16-2024 End: 11-15-2024 Folate [Mass/volume] in Serum or Plasma [facility] Comment on above: Expected: 08/16/2024 , Expires: 11/15/2024 Start: 08-16-2024 End: 11-15-2024 Thyrotropin [Units/volume] in Serum or Plasma [facility] Comment on above: Expected: 08/16/2024 , Expires: 11/15/2024 Start: 08-16-2024 End: 11-15-2024 Thyroxine (T4) free [Mass/volume] in Serum or Plasma [facility] Comment on above: Expected: 08/16/2024 , Expires: 11/15/2024 Start: 08-16-2024 End: 08-16-2024 Patient encounter procedure 08/16/2024 10:40 AM EST Office Visit [facility] [place] [address] [place], [place] [phone] Tacos Hein MD [address] [place], [place] [phone] Medicare wellness [facility] Comment on above: Medicare wellness Start: 08-10-2024 Annual PCP Team Performance Solutions Specialist jakob Disease Visit Annual PCP Team Chronic Disease Visit [facility] Start: 08-05-2024 End: 11-04-2024 25-hydroxyvitamin D3 [Mass/volume] in Serum or Plasma VITAMIN D 25 HYDROXY Lab Routine Vitamin D deficiency Expected: 08/05/2024, Expires: 11/04/2024 [facility] Work Phone: Comment on above: Expected: 08/05/2024 , Expires: 11/04/2024 Start: 08-05-2024 End: 11-04-2024 CBC W Auto Differential panel - Blood COMPLETE BLOOD COUNT AND DIFFERENTIAL Lab Routine Medication management Expected: 08/05/2024, Expires: 11/04/2024 [facility] Comment on above: Expected: 08/05/2024 , Expires: 11/04/2024 Start: 08-05-2024 End: 11-04-2024 Comprehensive metabolic 2000 panel - Serum or Plasma COMPREHENSIVE METABOLIC PANEL Lab Routine Dyslipidemia Expected: 08/05/2024, Expires: 11/04/2024 [facility] Comment on above: Expected: 08/05/2024 , Expires: 11/04/2024 Start: 08-05-2024 End: 11-04-2024 LIPID PANEL, NONFASTING LIPID PANEL, NONFASTING Lab Routine Dyslipidemia Expected: 08/05/2024, Expires: 11/04/2024 [facility] Comment on above: Expected: 08/05/2024 , Expires: 11/04/2024 Start: 08-05-2024 End: 11-04-2024 Urinalysis complete panel - Urine URINALYSIS, WITH MICROSCOPIC Lab Routine Dyslipidemia Expected: 08/05/2024, Expires: 11/04/2024 [facility] Comment on above: Expected: 08/05/2024 , Expires: 11/04/2024 Start: 06-30-2024 End: 06-30-2024 Patient encounter procedure 06/30/2024 10:00 AM EST Office Visit Pulmonary Medicine [address] [place] [address] Alona Cruz MD [address] [place] [address] 6 MO OV Pulmonary Medicine Comment on above: 6 MO OV Start: 04-06-2024 End: 04-06-2024 Nursing evaluation of patient and report 04/06/2024 9:00 AM EDT Nurse Visit [facility] [address] [place] [id number] Nurse, [place] [address] [place] [address] [facility] [place] Comment on above: [facility] Start: 03-27-2024 Covid-19 Vaccine ( season) Covid-19 Vaccine ( season) [facility] Start: 03-27-2024 Covid-19 Vaccine ( season) Covid-19 Vaccine ( season) [facility] Start: 03-27-2024 Influenza vaccination Influenza Vacc ine (#1) [facility] Start: 03-10-2024 Screening for osteoporosis Bone Density Screening [facility] Start: 02-13-2024 ANNUAL PCP TEAM COMMERCIAL ACCOUNT MANAGER JAKOB DISEASE VISIT ANNUAL PCP TEAM CHRONIC DISEASE VISIT [facility] Start: 02-12-2024 End: 02-12-2024 Patient encounter procedure 02/12/2024 2:00 PM EDT Office Visit Family [facility] [address] [place] [address] Tacos Hein MD [address] [place] [address] Hospital follow up [facility] [place] Comment on above: Hospital follow up Start: 01-22-2024 DIABETES SCREEN DIABETES SCREEN [facility] Start: 12-01-2023 End: 12-01-2023 Patient encounter procedure 12/01/2023 10:00 AM EDT Office Visit Pulmonary Medicine [address] [place] [address] Alona Cruz MD [address] [place] [address] 6 mo follow up Pulmonary Medicine Comment on above: 6 mo follow up Start: 08-15-2023 ANNUAL PCP TEAM COMMERCIAL ACCOUNT MANAGER JAKOB DISEASE VISIT ANNUAL PCP TEAM CHRONIC DISEASE VISIT [facility] Start: 08-15-2023 COVID-19 VACCINE (5 - Booster for Moderna series) COVID-19 VACCINE (5 - Booster for Moderna series) [facility] Comment on above: Postponed from 12/30 (Declined at this time) Start: 08-15-2023 COVID-19 VACCINE (5 - Moderna series) COVID-19 VACCINE (5 - Moderna series) [facility] Comment on above: Postponed from 12/30 (Declined at this time) Start: 08-15-2023 SHINGRIX VACCINE (3 of 3) DAVID GRIX VACCINE (3 of 3) [facility] Comment on above: Postponed from 03/19 (Insurance Coverage) Start: 08-03-2023 [place] [facility] Start: 07-27-2023 Advance Directive Discussion Advance Directive Discussion [facility] Start: 07-27-2023 Behavioral Health Screening Behavioral Health Screening [facility] Start: 07-27-2023 Depression Assessment Depression Ass essment [facility] Start: 04-13-2023 End: 06-13-2023 ALGN ROANOKE GRP ALGN ROANOKE GRP Lab Routine Mild persistent asthma without complication Expected: 04/13/2023, Expires: 06/13/2023 [facility] Work Phone: Comment on above: Expected: 04/13/2023 , Expires: 06/13/2023 Start: 03-27-2023 Covid-19 Vaccine () Covid-19 Vaccine () [facility] Start: 03-27-2023 Influenza vaccination [facility] Start: 01-28-2023 ANNUAL PCP TEAM COMMERCIAL ACCOUNT MANAGER JAKOB DISEASE VISIT ANNUAL PCP TEAM CHRONIC DISEASE VISIT [facility] Start: 12-17-2022 ANNUAL PCP TEAM COMMERCIAL ACCOUNT MANAGER JAKOB DISEASE VISIT ANNUAL PCP TEAM CHRONIC DISEASE VISIT [facility] Start: 09-20-2022 End: 11-20-2022 CBC W Auto Differential panel - Blood CBC + DIFF Lab Routine Leukocytosis, unspecified type Expected: 09/20/2022, Expires: 11/20/2022 [facility] Work Phone: Comment on above: Expected: 09/20/2022 , Expires: 11/20/2022 Start: 08-15-2022 End: 10-15-2022 25-hydroxyvitamin D3 [Mass/volume] in Serum or Plasma [facility] Work Phone: Comment on above: Expected: 08/15/2022 , Expires: 10/15/2022 Start: 08-15-2022 End: 10-15-2022 Comprehensive metabolic 2000 panel - Serum or Plasma [facility] Work Phone: Comment on above: Expected: 08/15/2022 , Expires: 10/15/2022 Start: 08-15-2022 End: 10-15-2022 LIPID PANEL, NONFASTING [facility] Work Phone: Comment on above: Expected: 08/15/2022 , Expires: 10/15/2022 Start: 08-15-2022 End: 03-22-2023 Urinalysis complete panel - Urine [facility] Work Phone: Comment on above: Expected: 08/15/2022 , Expires: 10/15/2022 Start: 08-14-2022 ANNUAL PCP TEAM COMMERCIAL ACCOUNT MANAGER JAKOB DISEASE VISIT ANNUAL PCP TEAM CHRONIC DISEASE VISIT [facility] Start: 07-27-2022 ADVANCE DIRECTIVE DISCUSSION ADVANCE DIRECTIVE DISCUSSION [facility] Start: 07-27-2022 DEPRESSION ASSESSMENT DEPRESSION ASS ESSMENT [facility] Start: 03-27-2022 Influenza vaccination INFLUENZA (#1) [facility] Start: 01-28-2022 End: 03-30-2022 25-hydroxyvitamin D3 [Mass/volume] in Serum or Plasma VITAMIN D 25 HYDROXY Lab Routine Vitamin D deficiency Expected: 01/28/2022, Expires: 03/30/2022 [facility] Work Phone: Comment on above: Expected: 01/28/2022 , Expires: 03/30/2022 Start: 01-28-2022 End: 03-30-2022 CBC W Auto Differential panel - Blood CBC + DIFF Lab Routine Dyslipidemia Expected: 01/28/2022, Expires: 03/30/2022 [facility] Work Phone: Comment on above: Expected: 01/28/2022 , Expires: 03/30/2022 Start: 01-28-2022 End: 03-30-2022 Comprehensive metabolic 2000 panel - Serum or Plasma COMP METABOLIC PANEL Lab Routine Fibromyalgia Expected: 01/28/2022, Expires: 03/30/2022 [facility] Work Phone: Comment on above: Expected: 01/28/2022 , Expires: 03/30/2022 Start: 01-28-2022 End: 03-30-2022 LIPID PANEL, NONFASTING LIPID PANEL, NONFASTING Lab Routine Dyslipidemia Expected: 01/28/2022, Expires: 03/30/2022 [facility] Work Phone: Comment on above: Expected: 01/28/2022 , Expires: 03/30/2022 Start: 01-22-2022 COLORECTAL CANCER SCREENING COLORECTAL CANCER SCREENING [facility] Start: 01-22-2022 FECAL OCCULT BLOOD FECAL OCCULT BLOO D [facility] Start: 01-22-2022 Screening for malign ant neoplasm of colon Fecal Occult Blood [facility] Start: 01-21-2022 SHINGRIX VACCINE (2 of 3) DAVID GRIX VACCINE (2 of 3) [facility] Comment on above: Postponed from 08/17 (Insurance Coverage) Start: 12-30-2021 COVID-19 VACCINE (5 - Booster for Moderna series) COVID-19 VACCINE (5 - Booster for Moderna series) [facility] Start: 07-27-2021 ADVANCE DIRECTIVE DISCUSSION ADVANCE DIRECTIVE DISCUSSION [facility] Start: 07-27-2021 DEPRESSION ASSESSMENT DEPRESSION ASS ESSMENT [facility] Start: 03-19-2021 SHINGRIX VACCINE (3 of 3) DAVID GRIX VACCINE (3 of 3) [facility] Start: 2012 RSV Vaccine (1 - 1-d ose 60+ series) RSV Vaccine (1 - 1-dose 60+ series) [facility] Start: 2012 RSV Vaccine (1 - Ris k 60-74 years 1-dose series) RSV Vaccine (1 - Risk 60-74 years 1-dose series) [facility] Start: 01-02-2009 Colonoscopy COLONOSCOPY [facility] Start: 01-02-2009 Screening for malign ant neoplasm of colon Colonoscopy [facility] Start: 02-05-1997 COLOGUARD (FIT-DNA) COLOGUARD (FIT-D NA) [facility] Start: 02-05-[address] COLONOGRAPHY [facility] Start: 02-05-1997 Screening for malign ant neoplasm of colon [facility] Start: 02-05-1997 SIGMOIDOSCOPY SIGMOIDOSCOPY [facility] Start: 02-05-1970 Anxiety Screening Anxiety Screening [facility] Start: 02-05-1970 Depression Screening Depression Scre ening [facility] End: 09-15-2025 BD DXA TRABECULAR BONE SCORE (TBS) BD DXA TRABECULAR BONE SCORE (TBS) Radiology Routine Osteoporosis, unspecified osteoporosis type, unspecified pathological fracture presence 1 Occurrences starting 08/16/2024 until 09/15/2025 [facility] Comment on above: 1 Occurrences starti ng 08/16/2024 until 09/15/2025 End: 02-27-2023 Dxa bone density study 1/> sites axial skel DXA-AXIAL SKELETON Radiology Routine Osteoporosis, unspecified osteoporosis type, unspecified pathological fracture presence 1 Occurrences starting 01/28/2022 until 02/27/2023 [facility] Work Phone: Comment on above: 1 Occurrences starti ng 01/28/2022 until 02/27/2023 End: 09-15-2025 DXA Skeletal system.axial Views for bone density DXA-AXIAL SKELETON Radiology Routine Osteoporosis, unspecified osteoporosis type, unspecified pathological fracture presence 1 Occurrences starting 08/16/2024 until 09/15/2025 [facility] Work Phone: Comment on above: 1 Occurrences starti ng 08/16/2024 until 09/15/2025 End: 09-13-2025 EMG(NEURO/NI) EMG(NEURO/NI) EMG Routine Neuropathy 1 Occurrences starting 09/13/2024 until 09/13/2025 [facility] Work Phone: Comment on above: 1 Occurrences starti ng 09/13/2024 until 09/13/2025 MONOCLONAL PROT 24 U R W/INTERP MONOCLONAL PROT 24 UR W/INTERP Lab Routine Gammopathy, monoclonal Ordered: 10/04/2024 [facility] Comment on above: Ordered: 10/04/2024 End: 11-06-2025 MR Lumbar spine WO contrast MRI LUMBAR SPINE WO IVCON Radiology Routine Spinal stenosis of lumbar region without neurogenic claudication 1 Occurrences starting 10/07/2024 until 11/06/2025 [facility] Work Phone: Comment on above: 1 Occurrences starti ng 10/07/2024 until 11/06/2025 Patient Education \cps-sql1\CPS_ PtEducati on\[facility] 2001_FALL_PREVENTION. pdf [facility] Work Phone: Patient Education [facility] Work Phone: Patient referral [facility] Work Phone: PROT ELEC UR 24HR W/ M SPIKE (P) PROT ELEC UR 24HR W/M SPIKE (P) Lab Routine Gammopathy, monoclonal Ordered: 10/04/2024 [facility] Comment on above: Ordered: 10/04/2024 PROT ELEC UR 24HR W/ M SPIKE AND INTERP PROT ELEC UR 24HR W/M SPIKE AND INTERP Lab Routine Gammopathy, monoclonal Ordered: 10/04/2024 [facility] Comment on above: Ordered: 10/04/2024 Protein [Mass/time] in 24 hour Urine PROTEIN, 24 HOUR URINE Lab Routine Gammopathy, monoclonal Ordered: 10/04/2024 [facility] Comment on above: Ordered: 10/04/2024 End: 04-24-2024 Radiologic exam chest 2 views XR CHEST 2V FRONTAL/LAT Radiology Routine Dyspnea, unspecified type 1 Occurrences starting 03/26/2023 until 04/24/2024 [facility] Work Phone: Comment on above: 1 Occurrences starti ng 03/26/2023 until 04/24/2024 End: 04-24-2024 SPIROMETRY WITH DILATOR IF OBSTRUCTED SPIROMETRY WITH DILATOR IF OBSTRUCTED PFT Routine Dyspnea, unspecified type 1 Occurrences starting 03/26/2023 until 04/24/2024 [facility] Work Phone: Comment on above: 1 Occurrences starti ng 03/26/2023 until 04/24/2024 [facility] Immunizations Immunization Date Immunization Notes Care Provider [facility] 04-11-2024 influenza, high dose seasonal, preservative-free Tacos Hein MD Work Phone: [facility] 05-27-2023 influenza (HD-IIV4) vaccine, age 65+ yr, high dose, quadrivalent, PF (FLUZONE HIGH-DOSE) Marilou Rich PA-C Work Phone: [facility] 05-27-2023 influenza virus vacc ine, unspecified formulation Tacos Hein MD Work Phone: [facility] 04-22-2022 influenza (aIIV4) vaccine, age 65+ yr, quadrivalent, PF (FLUAD QUADRIVALENT) Tacos Hein MD Work Phone: [facility] 04-22-2022 zoster vaccine recombinant Tacos Hein MD Work Phone: [facility] 04-22-2022 influenza virus vacc ine, unspecified formulation Alona Cruz MD Work Phone: [facility] 11-04-2021 COVID-19 vaccine, booster dose (MODERNA) Madison Mariee PA-C Work Phone: [facility] 08-14-2021 pneumococcal polysaccharide vaccine, 23 valent [facility] 05-14-2021 influenza (aIIV4) vaccine, age 65+ yr, quadrivalent, PF (FLUAD QUADRIVALENT) Madison Mariee PA-C Work Phone: [facility] 05-14-2021 influenza, high dose seasonal, preservative-free [facility] Work Phone: 01-22-2021 zoster vaccine recombinant Madison Mariee PA-C Work Phone: [facility] 11-15-2020 COVID-19 vaccine, fu ll dose (MODERNA) [facility] Work Phone: 10-11-2020 COVID-19 vaccine, fu ll dose (MODERNA) [facility] Work Phone: 04-19-2020 influenza, seasonal, injectable [facility] 05-24-2019 influenza, high dose seasonal, preservative-free [facility] 02-09-2019 pneumococcal conjuga te vaccine, 13 valent [facility] 02-09-2019 tetanus toxoid, redu ira diphtheria toxoid, and acellular pertussis vaccine, adsorbed [facility] 04-08-2018 influenza, high dose seasonal, preservative-free [facility] 05-19-2017 influenza, seasonal, injectable [facility] Work Phone: 05-15-2016 influenza, injectabl e, quadrivalent, contains preservative [facility] Work Phone: 05-15-2016 pneumococcal polysaccharide vaccine, 23 valent Tess [facility] Work Phone: 04-30-2015 influenza, seasonal, injectable [facility] Work Phone: 05-24-2014 influenza, seasonal, injectable Tess [facility] 06-22-2012 zoster vaccine, live Tess [facility] Payers Date Payer Category Payer Self-pay [id number] 2021 Medicare AETNA MEDICARE A ETNA MEDICARE PPO [id number] 2021-Present [phone] [address] [place] [address] [facility] [id number] 2021 Medicare AETNA MEDICARE A ETNA MEDICARE PPO [id number] 2021-Present [phone] [address] [place] [address] PP [id number] 2021 Medicare (Managed Care) [place] [facility] [id number] 2021 Private Health Insurance 101 [id number] 2016 Unknown [id number] Unknown [id number] Unknown [id number] Unknown [id number] Unknown [id number] Unknown [id number] Unknown [id number] Unknown [id number] Unknown [id number] Social History Date Type Detail Facility Start: 10-30-2021 End: 10-30-2021 Assertion Unknown if ever smoked [facility] Work Phone: Start: 02-18-2011 End: 12-26-2024 Tobacco smoking status NHIS Never smoked tobacco [facility] Start: 08-14-2021 End: 01-06-2025 Alcohol intake Current drinker of alcohol (finding) [facility] Start: 08-12-2021 End: 08-08-2022 History SDOH Alcohol Frequency 3 [facility] Start: 08-12-2021 End: 08-08-2022 History SDOH Alcohol Std Drinks 1 [facility] Start: 08-12-2021 End: 08-08-2022 History SDOH Social Connections Get Together 2 [facility] Start: 08-12-2021 End: 08-08-2022 History SDOH Physical Activity DPW 5 [facility] Start: 08-12-2021 History SDOH Physical Activity MPS 4 [facility] Start: 04-03-2020 Education 18 [facility] Start: 1950 Sex Assigned At Female [facility] Start: 12-07-2021 End: 04-21-2022 Exposure to SARS-CoV-2 (event) Not sure [facility] Start: 01-04-2022 End: 01-14-2022 Exposure to SARS-CoV-2 (event) Unable to assess [facility] Start: 02-18-2011 Tobacco use and exposure Smokeless tobacco non-user [facility] Start: 08-08-2022 End: 01-29-2023 History of Social function [facility] Start: 08-08-2022 End: 01-29-2023 Social connection and isolation panel [facility] Attends Synagogue Services Not on file [facility] Do you belong to any clubs or organizations such as episcopal groups, unions, fraternal or athletic groups, or school groups? Yes [facility] Are you now , , , , never or living with a partner? [facility] How often to you hav e a drink containing alcohol? 2-4 times a month [facility] How often do you hav e 6 or more drinks on 1 occasion? Never [facility] Do you feel stress - tense, restless, nervous, or anxious, or unable to sleep at night because your mind is troubled all the time - these days [OSQ] Not at all [facility] (I/We) worried whetan er (my/our) food would run out before (I/we) got money to buy more. Never true [facility] In the past 12 month s, was there a time when you were not able to pay the mortgage or rent on time? No [facility] Start: 2021 Gender identity Identifies as female gender (finding) [facility] Start: 2021 Sexual orientation Heterosexual (finding) [facility] How many standard dr inks containing alcohol do you have on a typical day? 1 or 2 [facility] Do you feel stress - tense, restless, nervous, or anxious, or unable to sleep at night because your mind is troubled all the time - these days [OSQ] Only a little [facility] Start: 11-15-2024 Sex Female (finding) [facility] Functional Status Date Assessment Result Facility 01-01-2015 Are you deaf, or do you have serious difficulty hearing No 01/01/2015 3:10 PM EDT Jeannie Pool MA No [facility] 01-01-2015 Are you blind, or do you have serious difficulty seeing, even when wearing glasses No 01/01/2015 3:10 PM EDT Jeannie Pool MA No [facility] 01-01-2015 Do you have serious difficulty walking or climbing stairs No 01/01/2015 3:10 PM EDT Jeannie Pool MA No [facility] 01-01-2015 Do you have difficul ty dressing or bathing No 01/01/2015 3:10 PM EDT Jeannie Pool MA No [facility] 01-01-2015 Because of a physica l, mental, or emotional condition, do you have difficulty doing errands alone such as visiting a physician's office or shopping No 01/01/2015 3:10 PM EDT Jeannie Pool MA No [facility] Mental Status Date Assessment Result Facility 11-15-2024 Cognitive function Voice/Name [facility] Work Phone: 08-03-2023 Cognitive function Level Of Cons ciousness Awake;Alert;Appropriate;Fol lows Commands [facility] Work Phone: 01-01-2015 Because of a physica l, mental, or emotional condition, do you have serious difficulty concentrating, remembering, or making decisions No 01/01/2015 3:10 PM EDT Jeannie Pool MA [facility] Clinical Notes 01-03-2008 to 01-18-2025 Barrera Mejia PT - 01/18/2025 3:28 PM Barrera Hedrick PT - 01/16/2025 4:02 PM Alona Fry MD - 01/06/2025 9:30 AM Barrera Hedrick PT - 12/30/2024 12:53 PM EDTPatient Instructions Note Date & Type Note Facility 01-18-2025 Note HNO ID: [id number] Author: BARRERA MEJIA PT Service: ? Author Type: Physical Therapist Type: Progress Notes Filed: 01/18/2025 15:30 Note Text: Episode Visit Count: 6 Therapist That Will Accept/Oversee The Plan Of Care: Barrera Mejia Start of Care Date: 10/24/24 Onset Date: 07/27/24 Plan of Care Certification Date: 10/24/24 Next Certification Due Date: 01/23/25 [facility] PHYSICAL THERAPY DISCONTINUANCE OF CARE PLAN OF CARE UPDATE: Assessment: Lupis Brito is discontinued from Physical Therapy services due to goal achievement.. Patient was seen for 6 visits from Start of Care Date: 10/24/24 to 01/18/2025 and treatment included: Therapeutic exercise, Manual therapy, and Self-alf management. Goals updated on 01/18/2025. Goals for Episode of Care: established 10/24/24 Independent in home exercises. Met Patient will decrease pain rating by 2 points to meet minimal clinical important difference for numeric pain rating scale. Met Restore pain-free lumbar ROM to WNL to allow for decreased pain and improved functional mobility. Met Sleep through night without pain/symptoms. Met Sit 1 hours without pain/symptoms to allow for improved tolerance for driving and sitting ADLs. Met Patient will increase strength of trunk/core to 4/5 to allow for improve ability to complete ADLs. Met SUBJECTIVE: Patient notes that the numbness in her legs is worse at night. Both legs, from the knees down, feel totally numb at a certain point in the night. She is confident in her HEP and feels she can continue on her own at this point. Pain: Pain Pain Level: 2 Pain Location: Low Back/Lumbar Spine- Midline Description: Aching, Sore Frequency: Continuous PROMIS Scales 12/27/2024 11/09/2024 11/02/2024 Higher is Better Phys Func - T Score 40 (mild dysfunction) 47 (within normal limits) Phys Func - Percentile 16 38 Self-Eff Symptom - T Score 40 (Average) 42 (Average) Self-Eff Symptom - Percentile 16 21 10/17/2024 Lower is Better Pain Interference - T Score 53 (within normal limits) Pain Interference - Percentile 38 T-scores: mean of general population = 50. 5 points is clinically meaningfully difference Percentiles provide an indication of how the patient's score ranks in relation to the general population. Higher percentile rankings indicate better function/quality of life. 50th percentile is the average of the general population and indicates half of respondents had a worse score. OBJECTIVE MEASURES WITH LEVEL OF FUNCTION: Lumbar Spine AROM Lumbar Flexion: Normal Lumbar Extension: Peripheralizing Lumbar R Side-Bend: Minimal limitation Lumbar L Side-Bend: Minimal limitation Lumbar R Rotation: Minimal limitation Lumbar L Rotation: Minimal limitation LE Strength Trunk Strength: 4/5 grossly Special Tests - Hip and Spine Hip and Spine Special Tests: Prone Knee Bending (Femoral Nerve) Test SLR Test: Right Negative, Left Negative Prone Knee Bending (Femoral Nerve) Test: Right Negative, Left Negative TREATMENT: Therapeutic Exercise: 1: SKC 3x30 sec 2: DKC 3x30 sec 3: LTR 3x10 to R 4: TA bracing 3x10, 3 sec holds 5: TA bracing plus alt marching 3x10/side 6: Objective measures obtained Skilled Intervention: Patient was educated in proper exercise technique and purpose for exercises. Skilled judgment was used in selection of appropriate interventions. Manual Therapy: 1: Manual lumbar traction with BLE elevated on stool with caudal pull to tolerance x 10 minutes. Pt's symptoms monitored throughout Skilled Intervention: Manual skills to improve joint mobility, ROM, and decrease pain. Utilized anatomy knowledge of the clinician, and assessment of patient's response to intervention. Billing Therapeutic Exercise Treatment Minutes: 28 Manual TherapyTreatment Minutes: 10 Skilled Treatment Time Minutes (timed and untimed codes): 38 Total Session Time (minutes): 38 Session Start Time : 1530 Session Stop Time : 1608 Barrera Mejia, PT [facility] 01-18-2025 History of Present illness Narrative Images from the original note were not included. Episode Visit Count: 6 Therapist That Will Accept/Oversee The Plan Of Care: Barrera Mejia Start of Care Date: 10/24/24 Onset Date: 07/27/24 Plan of Care Certification Date: 10/24/24 Next Certification Due Date: 01/23/25 REHABILITATION AND SPORTS THERAPY PHYSICAL THERAPY DISCONTINUANCE OF CARE PLAN OF CARE UPDATE: Assessment: Lupis Brito is discontinued from Physical Therapy services due to goal achievement.. Patient was seen for 6 visits from Start of Care Date: 10/24/24 to 01/18/2025 and treatment included: Therapeutic exercise, Manual therapy, and Self-alf management. Goals updated on 01/18/2025. Goals for Episode of Care: established 10/24/24 Independent in home exercises. Met Patient will decrease pain rating by 2 points to meet minimal clinical important difference for numeric pain rating scale. Met Restore pain-free lumbar ROM to WNL to allow for decreased pain and improved functional mobility. Met Sleep through night without pain/symptoms. Met Sit 1 hours without pain/symptoms to allow for improved tolerance for driving and sitting ADLs. Met Patient will increase strength of trunk/core to 4/5 to allow for improve ability to complete ADLs. Met SUBJECTIVE: Patient notes that the numbness in her legs is worse at night. Both legs, from the knees down, feel totally numb at a certain point in the night. She is confident in her HEP and feels she can continue on her own at this point. Pain: Pain Pain Level: 2 Pain Location: Low Back/Lumbar Spine- Midline Description: Aching, Sore Frequency: Continuous PROMIS Scales 12/27/2024 11/09/2024 11/02/2024 Higher is Better Phys Func - T Score 40 (mild dysfunction) 47 (within normal limits) Phys Func - Percentile 16 38 Self-Eff Symptom - T Score 40 (Average) 42 (Average) Self-Eff Symptom - Percentile 16 21 10/17/2024 Lower is Better Pain Interference - T Score 53 (within normal limits) Pain Interference - Percentile 38 T-scores: mean of general population = 50. 5 points is clinically meaningfully difference Percentiles provide an indication of how the patient's score ranks in relation to the general population. Higher percentile rankings indicate better function/quality of life. 50th percentile is the average of the general population and indicates half of respondents had a worse score. OBJECTIVE MEASURES WITH LEVEL OF FUNCTION: Lumbar Spine AROM Lumbar Flexion: Normal Lumbar Extension: Peripheralizing Lumbar R Side-Bend: Minimal limitation Lumbar L Side-Bend: Minimal limitation Lumbar R Rotation: Minimal limitation Lumbar L Rotation: Minimal limitation LE Strength Trunk Strength: 4/5 grossly Special Tests - Hip and Spine Hip and Spine Special Tests: Prone Knee Bending (Femoral Nerve) Test SLR Test: Right Negative, Left Negative Prone Knee Bending (Femoral Nerve) Test: Right Negative, Left Negative TREATMENT: Therapeutic Exercise: 1: SKC 3x30 sec 2: DKC 3x30 sec 3: LTR 3x10 to R 4: TA bracing 3x10, 3 sec holds 5: TA bracing plus alt marching 3x10/side 6: Objective measures obtained Skilled Intervention: Patient was educated in proper exercise technique and purpose for exercises. Skilled judgment was used in selection of appropriate interventions. Manual Therapy: 1: Manual lumbar traction with BLE elevated on stool with caudal pull to tolerance x 10 minutes. Pt's symptoms monitored throughout Skilled Intervention: Manual skills to improve joint mobility, ROM, and decrease pain. Utilized anatomy knowledge of the clinician, and assessment of patient's response to intervention. Billing Therapeutic Exercise Treatment Minutes: 28 Manual TherapyTreatment Minutes: 10 Skilled Treatment Time Minutes (timed and untimed codes): 38 Total Session Time (minutes): 38 Session Start Time : 1530 Session Stop Time : 1608 Barrera Mejia PT Program_ID:[id number] Access Code: [email or web address] URL: [email or web address] Date: 01-16-2025 Prepared By: Barrera Mejia Program Notes Exercises - Hooklying Single Knee to Chest - 1 x daily - 7 x weekly - 3 sets - 3 reps - Supine Double Knee to Chest - 1 x daily - 7 x weekly - 3 sets - 3 reps - Supine Posterior Pelvic Tilt - 1 x daily - 7 x weekly - 3 sets - 10 reps - Seated Thoracic Flexion and Rotation with Citizen [place] Ball - 1 x daily - 7 x weekly - 2 sets - 10 reps - Supine Lower Trunk Rotation - 1 x daily - 7 x weekly - 2 sets - 10 reps - Hooklying Lumbar Traction - 1 x daily - 7 x weekly - 3 sets - 10 reps documented in this encounter [facility] 01-06-2025 History of Present illness Narrative Images from the original note were not included. . [facility] [place] Note Patient name: Lupis Brito PCP: Tacos Hein MD CC: Asthma HPI: Lupis Brito 74 year old female never smoker with PMH significant for asthma diagnosed by methacholine challenge, allergic rhinitis, fibromyalgia, osteoporosis, neuropathy presenting for follow-up. Previous therapy with ICS (Arnuity) and as needed albuterol. At [facility] [place], she had issues with dysphonia due to ICS. Initially she was prescribed QVAR which controlled her symptoms and had no adverse effects but this inhaler became nonformulary. She has since changed back to QVAR Redihaler. Doing well. Only needed albuterol when very physically active with home projects. She denies significant dyspnea, cough, sputum production or wheezing. She has not been ill with any upper respiratory infection nor required hospitalization. No nocturnal awakenings. She has significant seasonal allergies but did well this past spring due to the fact that [place] during [place]. Still has some slight raspy voice but able to sing. DATA: ASTHMA CONTROL TEST Date: 01/06/2025 In the last 4 weeks, how much of the time did your asthma keep you from getting as much done at work or home that you wanted to do? None of the time (5) In the last 4 weeks, how often have you had shortness of breath? Not at all (5) In the last 4 weeks, how often did your asthma symptoms (wheezing, coughing, shortness of breath, chest tightness or pain) wake you up at night or earlier than usual? Not at all (5) In the last 4 weeks, how often have you used your rescue inhaler or nebulizer medication (such as Albuterol, Proventil, Ventolin, Maxair, Xoponex, or Primatene Mist)? Once a week or less (4) In the last 4 weeks, how would you rate your asthma control? Completely controlled (5) Total: more than 20 PAST MEDICAL HISTORY Diagnosis Date Acute gastritis without mention of hemorrhage Advance directive discussed with patient 08/15/2022 Discussed 07/2022: Needs to bring in copies. Arthritis of both hips 08/23/2015 Asthma (HCC) Positive JEREMIAH Benign neoplasm of colon Dyslipidemia 01/22/2021 Fibromyalgia 03/25/2010 Incidental lung nodule, less than or equal to 3mm 10/19/2014 F/u not needed Inflammatory arthritis 03/26/2015 Insomnia 03/26/[address] 08/15/2022 DPA: Lainey [...] Boniva [Ibandronate] GI Upset Increase in GERD Doxycycline Other: See Comments Accelerated heart rate Fosamax [Alendronat* GI Upset Increase heartburn/GI Mold Other: See Comments Nasal/sinus Penicillins Unknown Pollen Extracts Other: See Comments Nasal/sinus Sulfa (Sulfonamide * Unknown predniSONE (DELTASONE) 20 mg tablet^Take 3 tabs by mouth for 3 days, then 2 tabs by mouth for 3 days, then 1 tab by mouth for 3 days and then 1/2 a tab by mouth for 4 days.^Disp: 20 tablet^Rfl: 0 montelukast (SINGULAIR) 10 mg tablet^Take 1 tablet by mouth daily at bedtime.^Disp: 90 tablet^Rfl: 1 QVAR REDIHALER 40 mcg/actuation inhaler^Inhale 2 Puffs as instructed two times a day.^Disp: ^Rfl: albuterol HFA (VENTOLIN HFA) 90 mcg/actuation inhaler^Inhale 2 Puffs as instructed every 4 hours as needed for wheezing/shortness of breath.^Disp: 3 Each^Rfl: 2 cyclobenzaprine (FLEXERIL) 10 mg tablet^Take 1 tablet by mouth two times a day as needed.^Disp: 40 tablet^Rfl: 0 gabapentin (NEURONTIN) 300 mg capsule^Take 1 capsule by mouth two times a day for 180 days.^Disp: 180 capsule^Rfl: 1 RESTASIS 0.05 % ophthalmic emulsion^Use 1 Drop in both eyes two times a day.^Disp: ^Rfl: meloxicam (MOBIC) 7.5 mg tablet^Take 1 tablet by mouth once daily.^Disp: 90 tablet^Rfl: 1 fluticasone (FLONASE) 50 mcg/actuation nasal spray^instill 2 sprays into each nostril once daily^Disp: 3 Each^Rfl: 3 calcium carbonate (CALCIUM 300 ORAL)^Take 1 tablet by mouth once daily.^Disp: ^Rfl: MELATONIN ORAL^Take 10 mg by mouth at bedtime as needed.^Disp: ^Rfl: L.ACID/L.CASEI/B.BIF/B.ROBIN/FOS (PROBIOTIC BLEND ORAL)^Take 1 tablet by mouth once daily.^Disp: ^Rfl: folic acid 800 mcg ORAL Tab^Take 800 mcg by mouth once daily.^Disp: ^Rfl: 0 DAILY MULTIVITAMIN TAB^Take 1 tablet by mouth once daily.^Disp: ^Rfl: 0 Social History Tobacco Use Smoking status: Never Smokeless tobacco: Never Vaping Use Vaping status: Never Used Substance Use Topics Alcohol use: Yes Comment: occasionally Drug use: No FAMILY HISTORY Problem Relation Age of Onset Hypertension Mother Lipids Mother Skin Cancer Mother chemo and radiation Heart Father irregular heart beat. Skin Cancer Sister Asthma No Family History Coronary Artery Disease No Family History PAST SURGICAL HISTORY Procedure Laterality Date BACK SURGERY HX SECTION HX 09/27/1980 COLSC FLX W/RMVL OF TUMOR POLYP LESION [...] chills, nightsweats, unintended weight loss HEENT: Denies current nasal congestion/sinus symptoms. No throat clearing. CARDIOVASCULAR: No chest pain, dyspnea, palpitations, edema. PULM: See HPI NEURO: Balance issues, neuropathy INTEGUMENTARY: Brown recluse spider bite great toe PHYSICAL EXAMINATION: BP 120/74 Pulse 64 Resp 16 Wt 130 lb (59.0kg) SpO2 96% General Appearance: Age-appropriate female, NAD. Skin: Skin color, texture, turgor normal, no suspicious rashes or lesions. Oropharynx: No oral lesions or thrush. Torus. Neck: No masses or adenopathy. Lungs: Not labored, normal to percussion, no wheezes or crackles. Heart: Regular rate and rhythm, no murmurs. Extremities: No edema or clubbing. Assessment/Plan: 1. Mild intermittent asthma, uncomplicated -Not currently controlled with low-dose ICS and as needed albuterol. She will maintain her current inhaled therapy - RTC 1 year or sooner with problems Alona Cruz MD [facility] [place] documented in this encounter [facility] 01-06-2025 Note HNO ID: [id number] Author: ALONA CRUZ MD Service: ? Author Type: Physician Type: Progress Notes Filed: 01/06/2025 09:43 Note Text: . [facility] [place] Note Patient name: Lupis Brito PCP: Tacos Hein MD CC: Asthma HPI: Lupis Brito 74 year old female never smoker with PMH significant for asthma diagnosed by methacholine challenge, allergic rhinitis, fibromyalgia, osteoporosis, neuropathy presenting for follow-up. Previous therapy with ICS (Arnuity) and as needed albuterol. At [facility] [place], she had issues with dysphonia due to ICS. Initially she was prescribed QVAR which controlled her symptoms and had no adverse effects but this inhaler became nonformulary. She has since changed back to QVAR Redihaler. Doing well. Only needed albuterol when very physically active with home projects. She denies significant dyspnea, cough, sputum production or wheezing. She has not been ill with any upper respiratory infection nor required hospitalization. No nocturnal awakenings. She has significant seasonal allergies but did well this past spring due to the fact that she was [place] of state during [place]. Still has some slight raspy voice but able to sing. DATA: ASTHMA CONTROL TEST Date: 01/06/2025 In the last 4 weeks, how much of the time did your asthma keep you from getting as much done at work or home that you wanted to do? None of the time (5) In the last 4 weeks, how often have you had shortness of breath? Not at all (5) In the last 4 weeks, how often did your asthma symptoms (wheezing, coughing, shortness of breath, chest tightness or pain) wake you up at night or earlier than usual? Not at all (5) In the last 4 weeks, how often have you used your rescue inhaler or nebulizer medication (such as Albuterol, Proventil, Ventolin, Maxair, Xoponex, or Primatene Mist)? Once a week or less (4) In the last 4 weeks, how would you rate your asthma control? Completely controlled (5) Total: more than 20 PAST MEDICAL HISTORY Diagnosis Date Acute gastritis without mention of hemorrhage Advance directive discussed with patient 08/15/2022 Discussed 07/2022: Needs to bring in copies. Arthritis of both hips 08/23/2015 Asthma (HCC) Positive JEREMIAH Benign neoplasm of colon Dyslipidemia 01/22/2021 Fibromyalgia 03/25/2010 Incidental lung nodule, less than or equal to 3mm 10/19/2014 F/u not needed Inflammatory arthritis 03/26/2015 Insomnia 03/26/[address] 08/15/2022 DPA: Lainey [...] Boniva [Ibandronate] GI Upset Increase in GERD Doxycycline Other: See Comments Accelerated heart rate Fosamax [Alendronat* GI Upset Increase heartburn/GI Mold Other: See Comments Nasal/sinus Penicillins Unknown Pollen Extracts Other: See Comments Nasal/sinus Sulfa (Sulfonamide * Unknown predniSONE (DELTASONE) 20 mg tabletTake 3 tabs by mouth for 3 days, then 2 tabs by mouth for 3 days, then 1 tab by mouth for 3 days and then 1/2 a tab by mouth for 4 days.Disp: 20 tabletRfl: 0 montelukast (SINGULAIR) 10 mg tabletTake 1 tablet by mouth daily at bedtime.Disp: 90 tabletRfl: 1 QVAR REDIHALER 40 mcg/actuation inhalerInhale 2 Puffs as instructed two times a day.Disp: Rfl: albuterol HFA (VENTOLIN HFA) 90 mcg/actuation inhalerInhale 2 Puffs as instructed every 4 hours as needed for wheezing/shortness of breath.Disp: 3 EachRfl: 2 cyclobenzaprine (FLEXERIL) 10 mg tabletTake 1 tablet by mouth two times a day as needed.Disp: 40 tabletRfl: 0 gabapentin (NEURONTIN) 300 mg capsuleTake 1 capsule by mouth two times a day for 180 days.Disp: 180 capsuleRfl: 1 RESTASIS 0.05 % ophthalmic emulsionUse 1 Drop in both eyes two times a day.Disp: Rfl: meloxicam (MOBIC) 7.5 mg tabletTake 1 tablet by mouth once daily.Disp: 90 tabletRfl: 1 fluticasone (FLONASE) 50 mcg/actuation nasal sprayinstill 2 sprays into each nostril once dailyDisp: 3 EachRfl: 3 calcium carbonate (CALCIUM 300 ORAL)Take 1 tablet by mouth once daily.Disp: Rfl: MELATONIN ORALTake 10 mg by mouth at bedtime as needed.Disp: Rfl: L.ACID/L.CASEI/B.BIF/B.ROBIN/FOS (PROBIOTIC BLEND ORAL)Take 1 tablet by mouth once daily.Disp: Rfl: folic acid 800 mcg ORAL TabTake 800 mcg by mouth once daily.Disp: Rfl: 0 DAILY MULTIVITAMIN TABTake 1 tablet by mouth once daily.Disp: Rfl: 0 Social History Tobacco Use Smoking status: Never Smokeless tobacco: Never Vaping Use Vaping status: Never Used Substance Use To (more content not included)... [facility] 12-30-2024 Note HNO ID: [id number] Author: BARRERA MEJIA, PT Service: ? Author Type: Physical Therapist Type: Progress Notes Filed: 12/30/2024 12:57 Note Text: Episode Visit Count: 5 Therapist That Will Accept/Oversee The Plan Of Care: Barrera Mejia Start of Care Date: 10/24/24 Onset Date: 07/27/24 Plan of Care Certification Date: 10/24/24 Next Certification Due Date: 01/23/25 REHABILITATION AND SPORTS THERAPY PHYSICAL THERAPY PROGRESS REPORT PLAN OF CARE UPDATE: Assessment: Lupis Brito demonstrates difficulty with standing, walking, and bending. The patient has progressed toward goals. Patient continues to present with impairments in ADL's, overall function, range of motion, strength, and symptom management that interfere with standing, walking, heavy exertion, lifting, bending . Current prognosis is Good due to: current objective clinical presentation, good overall health status, within-session changes, good support system/ coping skills . The patient will benefit from continued skilled therapy services to meet the updated goals for this plan of care as noted below. Goals updated on 12/30/2024. Goals for Episode of Care: established 10/24/24 Independent in home exercises. Met Patient will decrease pain rating by 2 points to meet minimal clinical important difference for numeric pain rating scale. Met Restore pain-free lumbar ROM to WNL to allow for decreased pain and improved functional mobility. Improved Sleep through night without pain/symptoms. Improved Sit 1 hours without pain/symptoms to allow for improved tolerance for driving and sitting ADLs. Improved Patient will increase strength of trunk/core to 4/5 to allow for improve ability to complete ADLs. Improved Time Frame for Goals and Treatment : 01/29/25 Planned Interventions, Frequency, and Duration: 1x/week, 4 weeks Total Number of Visits Planned: 4 Patient to be seen for Therapeutic exercise (30656), Neuromuscular re-education (68451), Manual therapy (80950), Therapeutic activities (05651), Self-alf management (20848), Patient/Family/Caregiver Education, Body Mechanics Training PLAN FOR NEXT VISIT: Continue traction and flexion bias, strengthening per symptom tolerance Classification Pain Mechanism Classification: Neuropathic Low Back Pain Classification: Movement Control SUBJECTIVE: Patient was on a mission trip for a month in [place]. She fell coming out of the RV she was staying in and that caused a great deal of back pain and sciatic symptoms down the L side > R. Trying to do back extension and hip flexor machines [facility] really flare her up now. She was also bit but a brown recluse spider, but she is recovering well from that. Functional Limitations: standing, walking, heavy exertion, lifting, bending Pain: Pain Pain Level: 6 Pain Location: Low Back/Lumbar Spine- Midline Description: Aching, Sore Frequency: Continuous PROMIS Scales 12/27/2024 11/09/2024 11/02/2024 Higher is Better Phys Func - T Score 40 (mild dysfunction) 47 (within normal limits) Phys Func - Percentile 16 38 Self-Eff Symptom - T Score 40 (Average) 42 (Average) Self-Eff Symptom - Percentile 16 21 10/17/2024 Lower is Better Pain Interference - T Score 53 (within normal limits) Pain Interference - Percentile 38 T-scores: mean of general population = 50. 5 points is clinically meaningfully difference Percentiles provide an indication of how the patient's score ranks in relation to the general population. Higher percentile rankings indicate better function/quality of life. 50th percentile is the average of the general population and indicates half of respondents had a worse score. OBJECTIVE MEASURES WITH LEVEL OF FUNCTION: Lumbar Spine AROM Lumbar Flexion: Normal Lumbar Extension: Peripheralizing, Moderate limitation Lumbar R Side-Bend: Minimal limitation Lumbar L Side-Bend: Minimal limitation Lumbar R Rotation: Moderate limitation Lumbar L Rotation: Moderate limitation LE Strength Trunk Strength: 4/5 Special Tests - Hip and Spine SLR Test: Right Negative, Left Negative TREATMENT: Therapeutic Exercise: 1: *SKC 3x30 sec 2: *DKC 3x30 sec 3: *LTR 3x10 to R 4: *TA bracing 3x10, 3 sec holds 5: *TA bracing plus alt marching 3x10/side 6: *Seated flexion/rollouts 3x10, 3-5 sec holds 7: Objective measures obtained Skilled Intervention: Patient was educated in proper exercise technique and purpose for exercises. Skilled judgment was used in selection of appropriate interventions. Provided written instruction for home exercise program to facilitate proper performance and compliance. Correct performance of therapeutic exercises was facilitated with verbal, visual, and tactile cuing. Manual Therapy: 1: Manual lumbar traction with BLE elevated on stool with caudal pull to tolerance x 10 minutes. Pt's symptoms monitored throughout Skilled Intervention: Manual skills to improve joint mobi (more content not included)... [facility] 12-30-2024 History of Present illness Narrative Episode Visit Count: 5 Therapist That Will Accept/Oversee The Plan Of Care: Barrera Mejia Start of Care Date: 10/24/24 Onset Date: 07/27/24 Plan of Care Certification Date: 10/24/24 Next Certification Due Date: 01/23/25 REHABILITATION AND SPORTS THERAPY PHYSICAL THERAPY PROGRESS REPORT PLAN OF CARE UPDATE: Assessment: Lupis Brito demonstrates difficulty with standing, walking, and bending. The patient has progressed toward goals. Patient continues to present with impairments in ADL's, overall function, range of motion, strength, and symptom management that interfere with standing, walking, heavy exertion, lifting, bending . Current prognosis is Good due to: current objective clinical presentation, good overall health status, within-session changes, good support system/ coping skills . The patient will benefit from continued skilled therapy services to meet the updated goals for this plan of care as noted below. Goals updated on 12/30/2024. Goals for Episode of Care: established 10/24/24 Independent in home exercises. Met Patient will decrease pain rating by 2 points to meet minimal clinical important difference for numeric pain rating scale. Met Restore pain-free lumbar ROM to WNL to allow for decreased pain and improved functional mobility. Improved Sleep through night without pain/symptoms. Improved Sit 1 hours without pain/symptoms to allow for improved tolerance for driving and sitting ADLs. Improved Patient will increase strength of trunk/core to 4/5 to allow for improve ability to complete ADLs. Improved Time Frame for Goals and Treatment : 01/29/25 Planned Interventions, Frequency, and Duration: 1x/week, 4 weeks Total Number of Visits Planned: 4 Patient to be seen for Therapeutic exercise (88979), Neuromuscular re-education (44497), Manual therapy (52097), Therapeutic activities (24242), Self-alf management (90468), Patient/Family/Caregiver Education, Body Mechanics Training PLAN FOR NEXT VISIT: Continue traction and flexion bias, strengthening per symptom tolerance Classification Pain Mechanism Classification: Neuropathic Low Back Pain Classification: Movement Control SUBJECTIVE: Patient was on a mission trip for a month in [place]. She fell coming out of the RV she was staying in and that caused a great deal of back pain and sciatic symptoms down the L side > R. Trying to do back extension and hip flexor machines [facility] really flare her up now. She was also bit but a brown recluse spider, but she is recovering well from that. Functional Limitations: standing, walking, heavy exertion, lifting, bending Pain: Pain Pain Level: 6 Pain Location: Low Back/Lumbar Spine- Midline Description: Aching, Sore Frequency: Continuous PROMIS Scales 12/27/2024 11/09/2024 11/02/2024 Higher is Better Phys Func - T Score 40 (mild dysfunction) 47 (within normal limits) Phys Func - Percentile 16 38 Self-Eff Symptom - T Score 40 (Average) 42 (Average) Self-Eff Symptom - Percentile 16 21 10/17/2024 Lower is Better Pain Interference - T Score 53 (within normal limits) Pain Interference - Percentile 38 T-scores: mean of general population = 50. 5 points is clinically meaningfully difference Percentiles provide an indication of how the patient's score ranks in relation to the general population. Higher percentile rankings indicate better function/quality of life. 50th percentile is the average of the general population and indicates half of respondents had a worse score. OBJECTIVE MEASURES WITH LEVEL OF FUNCTION: Lumbar Spine AROM Lumbar Flexion: Normal Lumbar Extension: Peripheralizing, Moderate limitation Lumbar R Side-Bend: Minimal limitation Lumbar L Side-Bend: Minimal limitation Lumbar R Rotation: Moderate limitation Lumbar L Rotation: Moderate limitation LE Strength Trunk Strength: 4/5 Special Tests - Hip and Spine SLR Test: Right Negative, Left Negative TREATMENT: Therapeutic Exercise: 1: *SKC 3x30 sec 2: *DKC 3x30 sec 3: *LTR 3x10 to R 4: *TA bracing 3x10, 3 sec holds 5: *TA bracing plus alt marching 3x10/side 6: *Seated flexion/rollouts 3x10, 3-5 sec holds 7: Objective measures obtained Skilled Intervention: Patient was educated in proper exercise technique and purpose for exercises. Skilled judgment was used in selection of appropriate interventions. Provided written instruction for home exercise program to facilitate proper performance and compliance. Correct performance of therapeutic exercises was facilitated with verbal, visual, and tactile cuing. Manual Therapy: 1: Manual lumbar traction with BLE elevated on stool with caudal pull to tolerance x 10 minutes. Pt's symptoms monitored throughout Skilled Intervention: Manual skills to improve joint mobility, ROM, and decrease pain. Utilized anatomy knowledge of the clinician, and assessment of patient's response to intervention. Billing Therapeutic Exercise Treatment Minutes: 29 Manual TherapyTreatment Minutes: 10 Skilled Treatment Time Minutes (timed and untimed codes): 39 Total Session Time (minutes): 39 Session Start Time : 903 Session Stop Time : 942 Barrera Mejia PT Program_ID:[id number] Access Code: [email or web address] URL: [email or web address] [email or web address] Date: 12-30-2024 Prepared By: Barrera Mejia Program Notes Exercises - Hooklying Single Knee to Chest - 1 x daily - 7 x weekly - 3 sets - 3 reps - Supine Double Knee to Chest - 1 x daily - 7 x weekly - 3 sets - 3 reps - Supine Posterior Pelvic Tilt - 1 x daily - 7 x weekly - 3 sets - 10 reps - Seated Thoracic Flexion and Rotation with Citizen [place] Ball - 1 x daily - 7 x weekly - 2 sets - 10 reps - Supine Lower Trunk Rotation - 1 x daily - 7 x weekly - 2 sets - 10 reps documented in this encounter [facility] 12-27-2024 Note HNO ID: [id number] Author: PROSPER RODRIGUEZ LPN Service: ? Author Type: LICENSED NURSE Type: Progress Notes Filed: 12/27/2024 12:34 Note Text: Scan on 12/27/2024 10:55 AM by ProviderAnn PA-C: Consultation - Cardiology [facility] 12-27-2024 History of Present illness Narrative Scan on 12/27/2024 10:55 AM by Provider, PHUONG Juarez: Consultation - Cardiology documented in this encounter [facility] 12-27-2024 Progress note [facility] 12-26-2024 History of Present illness Narrative Formatting of this note is different fro m the original. Chief Complaint Patient presents with: Hospital F/U HPI Lupis Brito is a 74 year old female who presents here today for Hospital Discharge Follow up.. Phone note 12/12/2024 [facility] Address: [address] [place] [address]. ( # [phone]). Reports she was seen for severe back pain after falling off her RV steps, and falling flat on her back onto soft grassy area. Reports she see's Dr Alves for pain management for chronic back problems, and also does therapy at [facility]. Reports the back is not her problem right now, the problem is that she has bulging discs and the fall probably popped one out. Reports the pain starts at her left hip, radiates down buttock then radiates around to knee and into the foot. Reports the CT showed no breaks anywhere. She is also having pain on the right side in the lower back and numbness radiating down the side of the right leg and into the foot. She also notes that the numbness she was having in her feet prior to the trip is worse. (See below) Reports ER prescribed flexeril 5 mg 1/2 tabs 3 x's daily prn, and tizanidine 2 mg 1-2 tabs q6-8 hours prn, but instructed her if the flexeril does not help after 1 hour she can take 1 tizanidine. Also prescribed hydrocodone-acetaminophen 5-325 and told not to take this one with the muscle relaxers. Reports the hydrocodone/acet doesn't really give relief so she took advil dual action 250- 125 mg. Reports the ER only gave her a couple days worth of these pills and told her to call pcp for more. Patient was seen again in the ER about 1 1/2 weeks ago for a spider bite on the right great toe that was felt to be due to a Brown Recluse spider. Patient was placed on clindamycin and has 3-4 more days to complete. She feels this has been improving. . [place], she had been seen by neuro for numbness in her feet. It was found on MRI done 10/12/2024 that she had spinal stenosis. She was sent to PHYSICAL THERAPY. Prior to the trip the numbness in the feet had been improving but it did make her back hurt more. Has noticed weakness in just the left lower extremity. At times it feels like it could give way. Has not had a fall due to the left leg feeling week. Balance does seem more off. Past medical history, appointments, medications, allergies reviewed. [...] History PAST SURGICAL HISTORY Procedure Laterality Date BACK SURGERY HX SECTION HX 09/27/1980 COLSC FLX W/RMVL OF TUMOR POLYP LESION SNARE TQ 01/03/2008 Repeat in EGD TRANSORAL BIOPSY SINGLE/MULTIPLE 01/03/2008 EXC LESION TDN SHTH/JT CAPSL HAND/FNGR Right 04/10/2022 Excision ganglion cyst right 5th finger PAST SURGICAL HISTORY OF 07/27/1979 deviated septum Family History FAMILY HISTORY Problem Relation Age of Onset Hypertension Mother Lipids Mother Skin Cancer Mother chemo and radiation Heart Father irregular heart beat. Skin Cancer Sister Asthma No Family History Coronary Artery Disease No Family History Patient Allergies ALLERGIES Allergen Reactions Clindamycin Rash Boniva [Ibandronate] GI Upset Increase in GERD Doxycycline Other: See Comments Accelerated heart rate Fosamax [Alendronat* GI Upset Increase heartburn/GI Mold Other: See Comments Nasal/sinus Penicillins Unknown Pollen Extracts Other: See Comments Nasal/sinus Sulfa (Sulfonamide * Unknown Current Medications Current Outpatient Medications on File Prior to Visit Medication Sig montelukast (SINGULAIR) 10 mg tablet Take 1 tablet by mouth daily at bedtime. QVAR REDIHALER 40 mcg/actuation inhaler Inhale 2 Puffs as instructed two times a day. gabapentin (NEURONTIN) 300 mg capsule Take 1 capsule by mouth two times a day for 180 days. RESTASIS 0.05 % ophthalmic emulsion Use 1 Drop in both eyes two times a day. meloxicam (MOBIC) 7.5 mg tablet Take 1 tablet by mouth once daily. fluticasone (FLONASE) 50 mcg/actuation nasal spray instill 2 sprays into each nostril once daily calcium carbonate (CALCIUM 300 ORAL) Take 1 tablet by mouth once daily. albuterol HFA (VENTOLIN HFA) 90 mcg/actuation inhaler Inhale 2 Puffs as instructed every 4 hours as needed for wheezing/shortness of breath. MELATONIN ORAL Take 10 mg by mouth at bedtime as needed. L.ACID/L.CASEI/B.BIF/B.ROBIN/FOS (PROBIOTIC BLEND ORAL) Take 1 tablet by mouth once daily. folic acid 800 mcg ORAL Tab Take 800 mcg by mouth once daily. DAILY MULTIVITAMIN TAB Take 1 tablet by mouth once daily. Current Facility-Administered Medications on File Prior to Visit Medication denosumab 60 mg injection (PROLIA) Social History Social History Tobacco Use Smoking status: Never Smokeless tobacco: Never Vaping Use Vaping status: Never Used Substance Use Topics Alcohol use: Yes Comment: occasionally Drug use: No Review of Symptoms REVIEW OF SYSTEMS SEE HPI EXAM: BP 108/70 Pulse 81 Resp 16 Wt 59 kg (130 lb) SpO2 98% BMI 22.40 kg/m General Appearance: Well appearing, alert, in no acute distress, well-hydrated, well nourished.. Skin: over the right great toe show signs of necrosis from the spider bite but healing. No Gangreen. No signs of infection. Cap refill was good in the great toe. . Back:no pain to palpation of vertebrae. Positive tenderness over the SI joint's (Lt>Rt), back feels better on flexion and worse with extension. Left and right torso rotation and hip bends were ok., no muscle tenderness, reflexes are 2+ and symmetric, motor and sensory are normal and symmetrical, negative SLR test, Musculoskeletal: see back section. Has tenderness to palpation over th right greater trochanter. Neurologic: Gait normal. Reflexes normal and symmetric. Sensation to light touch intact and symmetrical in both lower extremities. .. Health Maintenance List RSV Vaccine(1 - Risk 60-74 years 1-dose series) due on 08/16/2025 Depression Screening due on 08/16/2025 Anxiety Screening due on 08/16/2025 Annual PCP Team Chronic Disease Visit due on 11/18/2025 Bone Density Screening due on 09/19/2026 Diabetes Screening due on 08/12/2027 DTaP,Tdap,Td Vaccine(2 - Td or Tdap) due on 02/09/2029 Lipid Screening due on 08/12/2029 Influenza Vaccine Completed Advance Directive Discussion Completed Shingrix Vaccine Completed Pneumococcal Vaccine: 50+ Completed Mammogram Screening Discontinued Colorectal Cancer Screening Discontinued Hepatitis C Screening Discontinued Covid-19 Vaccine Discontinued Data reviewed No ER reports to be able to review. Assessment and Plan ASSESSMENT/PLAN: 1. SI (sacroiliac) pain - ICD9: 724.6, ICD10: M53.3 (primary diagnosis) - will place on medrol dose pck. - patient to proceed with PHYSICAL THERAPY. - message updating PHYSICAL THERAPY provider sent. - will cont the flexeril. - patient to use OTC tylenol as needed. No NSAID's while on the prednisone - advised on icing. 2. Greater trochanteric bursitis of right hip - ICD9: 726.5, ICD10: M70.61 - as above 3. Numbness and tingling of both feet - ICD9: 782.0, ICD10: R20.0, R20.2 - as above and suspect this is contributing to her feeling off balance. Requested Prescriptions Signed Prescriptions Disp Refills predniSONE (DELTASONE) 20 mg tablet 20 tablet 0 Sig: Take 3 tabs by mouth for 3 days, then 2 tabs by mouth for 3 days, then 1 tab by mouth for 3 days and then 1/2 a tab by mouth for 4 days. cyclobenzaprine (FLEXERIL) 10 mg tablet 40 tablet 0 Sig: Take 1 tablet by mouth two times a day as needed. F/u if not getting better otherwise next routine. I spent a total of 45 minutes on the date of the service which included preparing to see the patient, [id number] patient care, completing clinical documentation, performing a medically appropriate examination, counseling and educating the patient/family/caregiver and ordering medications, tests, or procedures. Tacos Hein MD documented in this encounter [facility] 12-26-2024 Note HNO ID: [id number] Author: TACOS HEIN MD Service: ? Author Type: Physician Type: Progress Notes Filed: 12/26/2024 15:12 Note Text: Chief Complaint Patient presents with: Hospital F/U HPI Lupis Brito is a 74 year old female who presents here today for Hospital Discharge Follow up.. Phone note 12/12/2024 Pt reports [facility]12[facility]). Address: [address] [place] [address]. ( # [phone]). Reports she was seen for severe back pain after falling off her RV steps, and falling flat on her back onto soft grassy area. Reports she see's Dr Alves for pain management for chronic back problems, and also does therapy at [facility]. Reports the back is not her problem right now, the problem is that she has bulging discs and the fall probably popped one out. Reports the pain starts at her left hip, radiates down buttock then radiates around to knee and into the foot. Reports the CT showed no breaks anywhere. She is also having pain on the right side in the lower back and numbness radiating down the side of the right leg and into the foot. She also notes that the numbness she was having in her feet prior to the trip is worse. (See below) Reports ER prescribed flexeril 5 mg 1/2 tabs 3 x's daily prn, and tizanidine 2 mg 1-2 tabs q6-8 hours prn, but instructed her if the flexeril does not help after 1 hour she can take 1 tizanidine. Also prescribed hydrocodone-acetaminophen 5-325 and told not to take this one with the muscle relaxers. Reports the hydrocodone/acet doesn't really give relief so she took advil dual action 250- 125 mg. Reports the ER only gave her a couple days worth of these pills and told her to call pcp for more. Patient was seen again in the ER about 1 1/2 weeks ago for a spider bite on the right great toe that was felt to be due to a Brown Recluse spider. Patient was placed on clindamycin and has 3-4 more days to complete. She feels this has been improving. . Prior to this mission trip out [place] she was on, starting December 01, she had been seen by neuro for numbness in her feet. It was found on MRI done 10/12/2024 that she had spinal stenosis. She was sent to PHYSICAL THERAPY. Prior to the trip the numbness in the feet had been improving but it did make her back hurt more. Has noticed weakness in just the left lower extremity. At times it feels like it could give way. Has not had a fall due to the left leg feeling week. Balance does seem more off. Past medical history, appointments, medications, allergies reviewed. [...] History PAST SURGICAL HISTORY Procedure Laterality Date BACK SURGERY HX SECTION HX 09/27/1980 COLSC FLX W/RMVL OF TUMOR POLYP LESION SNARE TQ 01/03/2008 Repeat in EGD TRANSORAL BIOPSY SINGLE/MULTIPLE 01/03/2008 EXC LESION TDN SHTH/JT CAPSL HAND/FNGR Right 04/10/2022 Excision ganglion cyst right 5th finger PAST SURGICAL HISTORY OF 07/27/1979 deviated septum Family History FAMILY HISTORY Problem Relation Age of Onset Hypertension Mother Lipids Mother Skin Cancer Mother chemo and radiation Heart Father irregular heart beat. Skin Cancer Sister Asthma No Family History Coronary Artery Disease No Family History Patient Allergies ALLERGIES Allergen Reactions Clindamycin Rash Boniva [Ibandronate] GI Upset Increase in GERD Doxycycline Other: See Comments Accelerated heart rate Fosamax [Alendronat* GI Upset Increase heartburn/GI Mold Other: See Comments Nasal/sinus Penicillins Unknown Pollen Extracts Other: See Comments Nasal/sinus Sulfa (Sulfonamide * Unknown Current Medications Current Outpatient Medications on File Prior to Visit Medication Sig montelukast (SINGULAIR) 10 mg tablet Take 1 tablet by mouth daily at bedtime. QVAR REDIHALER 40 mcg/actuation inhaler Inhale 2 Puffs as instructed two times a day. gabapentin (NEURONTIN) 300 mg capsule Mart (more content not included)... [facility] 12-22-2024 Telephone encounter Note Formatting of this note might be differe nt from the original. Spoke with patient and relayed result. She said she has an appointment with Cardiology on 12/27/24 and prefers to wait on the medication until she sees them and then will go from there. Karen Rojas MA [facility] 12-22-2024 Miscellaneous Notes Formatting of this note might be differe nt from the original. Spoke with patient and relayed result. She said she has an appointment with Cardiology on 12/27/24 and prefers to wait on the medication until she sees them and then will go from there. Karen Rojas MA Please let patient know her heart monitor shows SVT or an accelerated regular HR. Recommend starting low dose metoprolol. If patient is agreeable I will send in prescription. documented in this encounter [facility] 12-12-2024 Telephone encounter Note Formatting of this note might be differe nt from the original. Pt notified of same and will contact. Dr Alves's office. Prosper Rodriguez LPN [facility] 12-12-2024 Miscellaneous Notes Formatting of this note might be differe nt from the original. Pt notified of same and will contact. Dr Alves's office. Prosper Rodriguez LPN Agree with patient discussing medication usage with Pain management. Pt reports she [facility] (12/11/24). Address: [address] [place] [address]. ( # [phone]). Reports she was seen for severe back pain after falling off her RV steps, and falling flat on her back onto soft grassy area. Reports she see's Dr Alves for pain management for chronic back problems, and also does therapy at [facility]. Reports the back is not her problem right now, the problem is that she has bulging discs and the fall probably popped one out. Reports the pain starts at her left hip, radiates down buttock then radiates to knee. Reports the CT showed no breaks anywhere. Reports ER prescribed flexeril 5 mg 1/2 tabs 3 x's daily prn, and tizanidine 2 mg 1-2 tabs q6-8 hours prn, but instructed her if the flexeril does not help after 1 hour she can take 1 tizanidine. Also prescribed hydrocodone-acetaminophen 5-325 and told not to take this one with the muscle relaxers. Reports the hydrocodone/acet doesn't really give relief so she took advil dual action 250- 125 mg. Reports the ER only gave her a couple days worth of these pills and told her to call pcp for more. Scheduled hosp f/u for 12/26/24 with pcp. Pt will not return to [place] for 2 weeks. Wants to know if pcp can send Rx for the muscle relaxers and pain medication to where she is at in [place], [place]? Advised pt pcp is out of office until Thu and I will be sending message to Syl Mariee. Advised patient provider would not send controlled, but will ask about the muscle relaxers. Pt states she will try to call Dr. Malik office also. Please advise patient and phone her with reply. documented in this encounter [facility] 12-12-2024 Telephone encounter Note Formatting of this note might be differe nt from the original. Agree with patient discussing medication usage with Pain management. [facility] 12-12-2024 Telephone encounter Note Formatting of this note might be differe nt from the original. Pt reports she [facility] (12/11/24). Address: [address] [place], [place] [address], [place]. ( # [phone]). Reports she was seen for severe back pain after falling off her RV steps, and falling flat on her back onto soft grassy area. Reports she see's Dr Alves for pain management for chronic back problems, and also does therapy at [facility]. Reports the back is not her problem right now, the problem is that she has bulging discs and the fall probably popped one out. Reports the pain starts at her left hip, radiates down buttock then radiates to knee. Reports the CT showed no breaks anywhere. Reports ER prescribed flexeril 5 mg 1/2 tabs 3 x's daily prn, and tizanidine 2 mg 1-2 tabs q6-8 hours prn, but instructed her if the flexeril does not help after 1 hour she can take 1 tizanidine. Also prescribed hydrocodone-acetaminophen 5-325 and told not to take this one with the muscle relaxers. Reports the hydrocodone/acet doesn't really give relief so she took advil dual action 250- 125 mg. Reports the ER only gave her a couple days worth of these pills and told her to call pcp for more. Scheduled hosp f/u for 12/26/24 with pcp. Pt will not return to [place] for 2 weeks. Wants to know if pcp can send Rx for the muscle relaxers and pain medication to where she is at in [place], [place]? Advised pt pcp is out of office until Thu and I will be sending message to Syl Mariee. Advised patient provider would not send controlled, but will ask about the muscle relaxers. Pt states she will try to call Dr. Malik office also. Please advise patient and phone her with reply. T [facility] 12-11-2024 Telephone encounter Note Formatting of this note might be differe nt from the original. Please let patient know her heart monitor shows SVT or an accelerated regular HR. Recommend starting low dose metoprolol. If patient is agreeable I will send in prescription. T [facility] 11-29-2024 Note HNO ID: [id number] Author: BARRERA MEJIA, PT Service: ? Author Type: Physical Therapist Type: Progress Notes Filed: 11/29/2024 14:50 Note Text: Episode Visit Count: 4 Therapist That Will Accept/Oversee The Plan Of Care: Barrera Mejia Start of Care Date: 10/24/24 Onset Date: 07/27/24 Plan of Care Certification Date: 10/24/24 Next Certification Due Date: 01/23/25 REHABILITATION AND SPORTS THERAPY PHYSICAL THERAPY PROGRESS REPORT PLAN OF CARE UPDATE: Assessment: Lupis Brito demonstrates moderate improvement in sitting, rising from a chair, standing, walking, and physical activities. The patient has progressed toward goals. Patient continues to present with impairments in overall function, strength, and symptom management that interfere with sitting, heavy exertion, physical activities . Current prognosis is Good due to: current objective clinical presentation, good overall health status, within-session changes, good support system/ coping skills . The patient will benefit from continued skilled therapy services to meet the updated goals for this plan of care as noted below. Goals updated on 11/29/2024. Goals for Episode of Care: established 10/24/24 Independent in home exercises. Met Patient will decrease pain rating by 2 points to meet minimal clinical important difference for numeric pain rating scale. Met Restore pain-free lumbar ROM to WNL to allow for decreased pain and improved functional mobility. Improved Sleep through night without pain/symptoms. Improved Sit 1 hours without pain/symptoms to allow for improved tolerance for driving and sitting ADLs. Improved Patient will increase strength of trunk/core to 4/5 to allow for improve ability to complete ADLs. Improved Time Frame for Goals and Treatment : 12/30/24 Planned Interventions, Frequency, and Duration: 1x/month, 1 visit Total Number of Visits Planned: 1 Patient to be seen for Therapeutic exercise (76489), Neuromuscular re-education (66896), Manual therapy (23204), Therapeutic activities (76080), Self-alf management (60592), Gait Training (95370), Patient/Family/Caregiver Education, Body Mechanics Training PLAN FOR NEXT VISIT: PN vs DC SUBJECTIVE: Overall patient doing well. She has less numbness in the legs, but her back does hurt a little more. Notes increasing frequency of her R foot catching, but this usually happens after exercising or long bouts of activity. Notes she feels like she is controlling symptoms well. She is going on a mission trip for the next month in [place]. Functional Limitations: sitting, heavy exertion, physical activities Pain: Pain Pain Level: 3 Pain Location: Low Back/Lumbar Spine- Midline Description: Aching, Sore Frequency: Continuous PROMIS Scales 11/09/2024 11/02/2024 10/17/2024 Higher is Better Phys Func - T Score 47 (within normal limits) Phys Func - Percentile 38 Self-Eff Symptom - T Score 42 (Average) 41 (Average) Self-Eff Symptom - Percentile 21 18 10/17/2024 Lower is Better Pain Interference - T Score 53 (within normal limits) Pain Interference - Percentile 38 T-scores: mean of general population = 50. 5 points is clinically meaningfully difference Percentiles provide an indication of how the patient's score ranks in relation to the general population. Higher percentile rankings indicate better function/quality of life. 50th percentile is the average of the general population and indicates half of respondents had a worse score. OBJECTIVE MEASURES WITH LEVEL OF FUNCTION: Lumbar Spine AROM Lumbar Flexion: Normal Lumbar Extension: Normal Lumbar R Side-Bend: Normal Lumbar L Side-Bend: Normal Lumbar R Rotation: Normal Lumbar L Rotation: Normal LE Strength Trunk Strength: 4/5 TREATMENT: Therapeutic Exercise: 1: Seated flexion 3x30 sec 2: LTR x10/side 3: PPT x10 4: PPT with alt LE marching 3x10 B 5: PPT with alt BKFO 3x10 6: Objective measures taken Skilled Intervention: Patient was educated in proper exercise technique and purpose for exercises. Skilled judgment was used in selection of appropriate interventions. Provided written instruction for home exercise program to facilitate proper performance and compliance. Correct performance of therapeutic exercises was facilitated with verbal, visual, and tactile cuing. Manual Therapy: 1: Manual lumbar traction with BLE elevated on stool with caudal pull to tolerance x 10 minutes. Pt's symptoms monitored throughout. Skilled Intervention: Manual skills to improve joint mobility, ROM, and decrease pain. Utilized anatomy knowledge of the clinician, and assessment of patient's response to intervention. Billing Therapeutic Exercise Treatment Minutes: 24 Manual TherapyTreatment Minutes: 15 Skilled Treatment Time Minutes (timed and untimed codes): 39 Total Session Time (minutes): 39 Session Start Time : 919 Session Stop Time : 958 Barrera Mejia PT [facility] 11-29-2024 History of Present illness Narrative Formatting of this note is different fro m the original. Episode Visit Count: 4 Therapist That Will Accept/Oversee The Plan Of Care: Barrera Mejia Start of Care Date: 10/24/24 Onset Date: 07/27/24 Plan of Care Certification Date: 10/24/24 Next Certification Due Date: 01/23/25 REHABILITATION AND SPORTS THERAPY PHYSICAL THERAPY PROGRESS REPORT PLAN OF CARE UPDATE: Assessment: Lupis Brito demonstrates moderate improvement in sitting, rising from a chair, standing, walking, and physical activities. The patient has progressed toward goals. Patient continues to present with impairments in overall function, strength, and symptom management that interfere with sitting, heavy exertion, physical activities . Current prognosis is Good due to: current objective clinical presentation, good overall health status, within-session changes, good support system/ coping skills . The patient will benefit from continued skilled therapy services to meet the updated goals for this plan of care as noted below. Goals updated on 11/29/2024. Goals for Episode of Care: established 10/24/24 Independent in home exercises. Met Patient will decrease pain rating by 2 points to meet minimal clinical important difference for numeric pain rating scale. Met Restore pain-free lumbar ROM to WNL to allow for decreased pain and improved functional mobility. Improved Sleep through night without pain/symptoms. Improved Sit 1 hours without pain/symptoms to allow for improved tolerance for driving and sitting ADLs. Improved Patient will increase strength of trunk/core to 4/5 to allow for improve ability to complete ADLs. Improved Time Frame for Goals and Treatment : 12/30/24 Planned Interventions, Frequency, and Duration: 1x/month, 1 visit Total Number of Visits Planned: 1 Patient to be seen for Therapeutic exercise (49645), Neuromuscular re-education (44376), Manual therapy (55739), Therapeutic activities (80785), Self-alf management (22797), Gait Training (33838), Patient/Family/Caregiver Education, Body Mechanics Training PLAN FOR NEXT VISIT: PN vs DC SUBJECTIVE: Overall patient doing well. She has less numbness in the legs, but her back does hurt a little more. Notes increasing frequency of her R foot catching, but this usually happens after exercising or long bouts of activity. Notes she feels like she is controlling symptoms well. She is going on a mission trip for the next month in [place]. Functional Limitations: sitting, heavy exertion, physical activities Pain: Pain Pain Level: 3 Pain Location: Low Back/Lumbar Spine- Midline Description: Aching, Sore Frequency: Continuous PROMIS Scales 11/09/2024 11/02/2024 10/17/2024 Higher is Better Phys Func - T Score 47 (within normal limits) Phys Func - Percentile 38 Self-Eff Symptom - T Score 42 (Average) 41 (Average) Self-Eff Symptom - Percentile 21 18 10/17/2024 Lower is Better Pain Interference - T Score 53 (within normal limits) Pain Interference - Percentile 38 T-scores: mean of general population = 50. 5 points is clinically meaningfully difference Percentiles provide an indication of how the patient's score ranks in relation to the general population. Higher percentile rankings indicate better function/quality of life. 50th percentile is the average of the general population and indicates half of respondents had a worse score. OBJECTIVE MEASURES WITH LEVEL OF FUNCTION: Lumbar Spine AROM Lumbar Flexion: Normal Lumbar Extension: Normal Lumbar R Side-Bend: Normal Lumbar L Side-Bend: Normal Lumbar R Rotation: Normal Lumbar L Rotation: Normal LE Strength Trunk Strength: 4/5 TREATMENT: Therapeutic Exercise: 1: Seated flexion 3x30 sec 2: LTR x10/side 3: PPT x10 4: PPT with alt LE marching 3x10 B 5: PPT with alt BKFO 3x10 6: Objective measures taken Skilled Intervention: Patient was educated in proper exercise technique and purpose for exercises. Skilled judgment was used in selection of appropriate interventions. Provided written instruction for home exercise program to facilitate proper performance and compliance. Correct performance of therapeutic exercises was facilitated with verbal, visual, and tactile cuing. Manual Therapy: 1: Manual lumbar traction with BLE elevated on stool with caudal pull to tolerance x 10 minutes. Pt's symptoms monitored throughout. Skilled Intervention: Manual skills to improve joint mobility, ROM, and decrease pain. Utilized anatomy knowledge of the clinician, and assessment of patient's response to intervention. Billing Therapeutic Exercise Treatment Minutes: 24 Manual TherapyTreatment Minutes: 15 Skilled Treatment Time Minutes (timed and untimed codes): 39 Total Session Time (minutes): 39 Session Start Time : 919 Session Stop Time : 958 Barrera Mejia PT Program_ID:[id number] Access Code: [email or web address] URL: [email or web address] Date: 11-29-2024 Prepared By: Barrera Mejia Program Notes Exercises - Hooklying Single Knee to Chest - 1 x daily - 7 x weekly - 3 sets - 3 reps - Supine Double Knee to Chest - 1 x daily - 7 x weekly - 3 sets - 3 reps - Supine Posterior Pelvic Tilt - 1 x daily - 7 x weekly - 3 sets - 10 reps - Seated Thoracic Flexion and Rotation with Citizen [place] Ball - 1 x daily - 7 x weekly - 2 sets - 10 reps - Supine Lower Trunk Rotation - 1 x daily - 7 x weekly - 2 sets - 10 reps - Supine March with Posterior Pelvic Tilt - 1 x daily - 7 x weekly - 3 sets - 10 reps - Bent Knee Fallouts - 1 x daily - 7 x weekly - 3 sets - 10 reps - Standing Anti-Rotation Press with Anchored Resistance - 1 x daily - 7 x weekly - 3 sets - 10 reps - Stir the Pot - 1 x daily - 7 x weekly - 3 sets - 10 reps documented in this encounter [facility] 11-21-2024 History of Present illness Narrative Formatting of this note might be differe nt from the original. Program_ID:[id number] Access Code: [email or web address] URL: [email or web address]/ Date: 11-21-2024 Prepared By: Barrera Mejia Program Notes Exercises - Hooklying Single Knee to Chest - 1 x daily - 7 x weekly - 3 sets - 3 reps - Supine Double Knee to Chest - 1 x daily - 7 x weekly - 3 sets - 3 reps - Supine Posterior Pelvic Tilt - 1 x daily - 7 x weekly - 3 sets - 10 reps - Seated Thoracic Flexion and Rotation with Citizen [place] Ball - 1 x daily - 7 x weekly - 2 sets - 10 reps - Supine Lower Trunk Rotation - 1 x daily - 7 x weekly - 2 sets - 10 reps - Supine March with Posterior Pelvic Tilt - 1 x daily - 7 x weekly - 3 sets - 10 reps - Bent Knee Fallouts - 1 x daily - 7 x weekly - 3 sets - 10 reps Episode Visit Count: 3 Therapist That Will Accept/Oversee The Plan Of Care: Barrera Roberto Start of Care Date: 10/24/24 Onset Date: 07/27/24 Plan of Care Certification Date: 10/24/24 Next Certification Due Date: 01/23/25 Patient Identified by Name and Date of : Yes REHABILITATION AND SPORTS THERAPY PHYSICAL THERAPY TREATMENT NOTE ASSESSMENT: Lupis Brito tolerated the session with fatigue and expected muscle soreness. She demonstrated improvements in tolerance to core strengthening without increased LBP. The patient will continue to benefit from ongoing skilled physical therapy to progress toward set goals. PLAN FOR NEXT VISIT: PN SUBJECTIVE: Pt reports that she is feeling much better than last week. She sates her back is not as sore initially. Pt states that the L foot has decreased numbness and is not as bad at night. Pain: Pain Pain Level: 2 Pain Location: Low Back/Lumbar Spine - Left Pain Level 2: 4 Pain Location 2: Foot - Left, Foot - Right OBJECTIVE MEASURES WITH LEVEL OF FUNCTION: Improved lumbar flexibility with physioball rollouts. Vitals BP: 129/81 Pulse: 84 TREATMENT: Therapeutic Exercise: 1: Physioball roll out with R sidebend 3x10 2: LTR to the R only 2x10 3: PPT 2x10 4: *PPT with alt LE marching 3x10 B 5: *PPT with alt BKFO 3x10 Skilled Intervention: Patient was educated in proper exercise technique and purpose for exercises. Reviewed and educated patient on additions/changes for home exercise program as above (*). Skilled judgment was used in selection of appropriate interventions. Provided written instruction for home exercise program to facilitate proper performance and compliance. Correct performance of therapeutic exercises was facilitated with verbal and visual cuing. Manual Therapy: 1: Manual lumbar traction with BLE elevated on stool with caudal pull to tolerance x 10 minutes. Pt's symptoms monitored throughout. Skilled Intervention: Manual skills to improve joint mobility, ROM, and decrease pain. Utilized anatomy knowledge of the clinician, and assessment of patient's response to intervention. [place] Therapeutic Exercise Treatment Minutes: 33 Manual TherapyTreatment Minutes: 10 Skilled Treatment Time Minutes (timed and untimed codes): 43 Total Session Time (minutes): 43 Session Start Time : 1230 Session Stop Time : 1313 ZULAY Alarcon PT documented in this encounter [facility] 11-21-2024 Note HNO ID: [id number] Author: BARRERA MEJIA PT Service: ? Author Type: Physical Therapist Type: Progress Notes Filed: 11/21/2024 16:46 Note Text: Episode Visit Count: 3 Therapist That Will Accept/Oversee The Plan Of Care: Barrera Mejia Start of Care Date: 10/24/24 Onset Date: 07/27/24 Plan of Care Certification Date: 10/24/24 Next Certification Due Date: 01/23/25 Patient Identified by Name and Date of : Yes REHABILITATION AND SPORTS THERAPY PHYSICAL THERAPY TREATMENT NOTE ASSESSMENT: Lupis Brito tolerated the session with fatigue and expected muscle soreness. She demonstrated improvements in tolerance to core strengthening without increased LBP. The patient will continue to benefit from ongoing skilled physical therapy to progress toward set goals. PLAN FOR NEXT VISIT: PN SUBJECTIVE: Pt reports that she is feeling much better than last week. She sates her back is not as sore initially. Pt states that the L foot has decreased numbness and is not as bad at night. Pain: Pain Pain Level: 2 Pain Location: Low Back/Lumbar Spine - Left Pain Level 2: 4 Pain Location 2: Foot - Left, Foot - Right OBJECTIVE MEASURES WITH LEVEL OF FUNCTION: Improved lumbar flexibility with physioball rollouts. Vitals BP: 129/81 Pulse: 84 TREATMENT: Therapeutic Exercise: 1: Physioball roll out with R sidebend 3x10 2: LTR to the R only 2x10 3: PPT 2x10 4: *PPT with alt LE marching 3x10 B 5: *PPT with alt BKFO 3x10 Skilled Intervention: Patient was educated in proper exercise technique and purpose for exercises. Reviewed and educated patient on additions/changes for home exercise program as above (*). Skilled judgment was used in selection of appropriate interventions. Provided written instruction for home exercise program to facilitate proper performance and compliance. Correct performance of therapeutic exercises was facilitated with verbal and visual cuing. Manual Therapy: 1: Manual lumbar traction with BLE elevated on stool with caudal pull to tolerance x 10 minutes. Pt's symptoms monitored throughout. Skilled Intervention: Manual skills to improve joint mobility, ROM, and decrease pain. Utilized anatomy knowledge of the clinician, and assessment of patient's response to intervention. Billing Therapeutic Exercise Treatment Minutes: 33 Manual TherapyTreatment Minutes: 10 Skilled Treatment Time Minutes (timed and untimed codes): 43 Total Session Time (minutes): 43 Session Start Time : 1230 Session Stop Time : 1313 Adriana Salcedo, ZULAY Mejia, PT [facility] 11-18-2024 Note HNO ID: [id number] Author: ABBE RUST MA Service: ? Author Type: Grades 9 Thru 12 Visiting Teacher Type: Progress Notes Filed: 11/18/2024 10:39 Note Text: EVENT MONITOR DISPOSABLE PATCH INSTRUCTIONS Patient Name: Lupis Brito Clinic Number: [id number] Skin prepped and cleansed with alcohol Patch secured to prepped area Monitor Activated Serial #: [id number] Patient Instructed: Prescribed order timeframe Bathing guidelines Usage of event button and diary documentation Return of monitor at the end of prescribed order Call with problems [phone] or [phone] ext. [phone] Patient expresses a good understanding of instructions Abbe Rust MA [facility] 11-18-2024 Note HNO ID: [id number] Author: TESS NAVARRETE APRN.CNP Service: ? Author Type: Nurse Practitioner Type: Progress Notes Filed: 11/18/2024 10:07 Note Text: Chief Complaint Patient presents with: ER F/U HPI Lupis Brito is a 74 year old female who presents here today for Above Complaints.. Patient presents for ER follow up for SVT. Patient reports she was not given any new prescriptions and told to follow up with her PCP for cardiology referral. Patient requesting to go to [facility]. Reports she was given adenosine which was effective. Past medical history, appointments, medications, allergies reviewed. [...] History PAST SURGICAL HISTORY Procedure Laterality Date BACK SURGERY HX SECTION HX 09/27/1980 COLSC FLX W/RMVL OF TUMOR POLYP LESION SNARE TQ 01/03/2008 Repeat in EGD TRANSORAL BIOPSY SINGLE/MULTIPLE 01/03/2008 EXC LESION TDN SHTH/JT CAPSL HAND/FNGR Right 04/10/2022 Excision ganglion cyst right 5th finger PAST SURGICAL HISTORY OF 07/27/1979 deviated septum Family History FAMILY HISTORY Problem Relation Age of Onset Hypertension Mother Lipids Mother Skin Cancer Mother chemo and radiation Heart Father irregular heart beat. Skin Cancer Sister Asthma No Family History Coronary Artery Disease No Family History Patient Allergies ALLERGIES Allergen Reactions Clindamycin Rash Boniva [Ibandronate] GI Upset Increase in GERD Doxycycline Other: See Comments Accelerated heart rate Fosamax [Alendronat* GI Upset Increase heartburn/GI Mold Other: See Comments Nasal/sinus Penicillins Unknown Pollen Extracts Other: See Comments Nasal/sinus Sulfa (Sulfonamide * Unknown Current Medications Current Outpatient Medications on File Prior to Visit Medication Sig montelukast (SINGULAIR) 10 mg tablet Take 1 tablet by mouth daily at bedtime. QVAR REDIHALER 40 mcg/actuation inhaler Inhale 2 Puffs as instructed two times a day. gabapentin (NEURONTIN) 300 mg capsule Take 1 capsule by mouth two times a day for 180 days. RESTASIS 0.05 % ophthalmic emulsion Use 1 Drop in both eyes two times a day. meloxicam (MOBIC) 7.5 mg tablet Take 1 tablet by mouth once daily. fluticasone (FLONASE) 50 mcg/actuation nasal spray instill 2 sprays into each nostril once daily calcium carbonate (CALCIUM 300 ORAL) Take 1 tablet by mouth once daily. albuterol HFA (VENTOLIN HFA) 90 mcg/actuation inhaler Inhale 2 Puffs as instructed every 4 hours as needed for wheezing/shortness of breath. MELATONIN ORAL Take 10 mg by mouth at bedtime as needed. L.ACID/L.CASEI/B.BIF/B.ROBIN/FOS (PROBIOTIC BLEND ORAL) Take 1 tablet by mouth once daily. folic acid 800 mcg ORAL Tab Take 800 mcg by mouth once daily. DAILY MULTIVITAMIN TAB Take 1 tablet by mouth once daily. Current Facility-Administered Medications on File Prior to Visit Medication denosumab 60 mg injection (PROLIA) Social History Social History Tobacco Use Smoking status: Never Smokeless tobacco: Never Vaping Use Vaping status: Never Used Substance Use Topics Alcohol use: Yes Comment: occasionally Drug use: No Review of Symptoms REVIEW OF SYSTEMS SEE HPI EXAM: BP 94/63 Pulse 80 Wt 59 kg (130 lb 1.1 oz) BMI 22.41 kg/m? General Appearance: Well appearing, alert, in no acute distress, well-hydrated, well nourished. Lungs: Lungs clear to auscultation. No wheezing, rhonchi, rales.. Heart: RRR without murmur, gallop, or rubs. No ectopy. Health Maintenance List RSV Vaccine(1 - Risk 60-74 years 1-dose series) due on 08/16/2025 Annual PCP Team Chronic Disease Visit due on 08/16/2025 Depression Screening due on 08/16/2025 Anxiety Screening due on 08/16/2025 Bone Density Screening due on 09/19/2026 Diabetes Screening due on 08/12/2027 DTaP,Tdap,Td Vaccine(2 - Td or Tdap) due on 02/09/2029 Lipid Screening due on 08/12/2029 Spirometry Completed Influenza Vaccine Completed Advance Directive Discussion (more content not included)... [facility] 11-18-2024 Note HNO ID: [id number] Author: MICHELLE ROMAN MD Service: ? Author Type: Physician Type: Procedures Filed: 12/11/2024 07:14 Note Text: Patient Name: Lupis Brito : 1950 Ordering Provider: TESS NAVARRETE Indication: I47.10 Supraventricular Tachycardia, unspecified Type of Monitor: Extended Monitoring-Zio Patch Enrollment Dates: 11/18/2024-12/02/2024 IRHYTHM FINDINGS: Patient had a min HR of 44 bpm, max HR of 152 bpm, and avg HR of 73 bpm. Predominant underlying rhythm was Sinus Rhythm. First Degree AV Block was present. 6 Supraventricular Tachycardia runs occurred, the run with the fastest interval lasting 42 mins 34 secs with a max rate of 152 bpm, the longest lasting 1 hour 11 mins with an avg rate of 111 bpm. Isolated SVEs were rare (<1.0%), SVE Couplets were rare (<1.0%), and no SVE Triplets were present. Isolated VEs were rare (<1.0%), VE Couplets were rare (<1.0%), and no VE Triplets were present. [facility] 11-15-2024 Radiology Diagnostic study note [facility] Imaging Services [address] [place] [address] [id number] Chest 1 View (Portable) MR#: [id number] Acct: [id number] Name: LUPIS BRITO Rep #: [id number] : 1950 F 74 From: Iva Burgos MD PCP: Dr. Tacos Hein MD Status: [facility] ER Study:Chest 1 View (Portable) Date of Exam: 11/15/24 Exam# [id number] Ordering Dr: Isai Landeros DO EXAM: XR Chest, 1 View CLINICAL INDICATION: SHORTNESS OF BREATH TECHNIQUE: Frontal view of the chest. COMPARISON: No relevant prior studies available. FINDINGS: LUNGS AND PLEURAL SPACES: Unremarkable. No consolidation. No pneumothorax. HEART: Unremarkable. No cardiomegaly. MEDIASTINUM: Unremarkable. Normal mediastinal contour. BONES/JOINTS: Unremarkable. No acute fracture. RAD/Chest 1 View (Portable) IMPRESSION: No acute cardiopulmonary process. [facility] CC: Dr. Isai Landeros DO; Dr. Tacos Hein MD ~ Geophysical Computer: Signed [facility] 11-15-2024 Note HNO ID: [id number] Author: ADRIANA SALCEDO PTA Service: ? Author Type: Physical Therapist Type: Progress Notes Filed: 11/15/2024 14:58 Note Text: Pt enters clinic this morning stating that she was not feeling well and woke up dizzy and her watch alerted her that she had a high heart rate. Pt states that she took a shower and felt a little better. Pt questioning if she should have went to ED. Vitals taken in clinic with BP101/72,Pulse 147, and SpO2 98%. Pt wishes to go to ED due to high resting pulse and PMH of this happening before. No treatment performed today. ZULAY Alarcon PT 11/15/24 @ 14:45 Called pt to follow-up and pt stated that she was at home but had supraventricular tachycardia and they got her heart back in rhythm. Adriana Salcedo PTA [facility] 11-15-2024 History of Present illness Narrative Formatting of this note might be differe nt from the original. Pt enters clinic this morning stating that she was not feeling well and woke up dizzy and her watch alerted her that she had a high heart rate. Pt states that she took a shower and felt a little better. Pt questioning if she should have went to ED. Vitals taken in clinic with BP101/72,Pulse 147, and SpO2 98%. Pt wishes to go to ED due to high resting pulse and PMH of this happening before. No treatment performed today. ZULAY Alarcon PT 11/15/24 @ 14:45 Called pt to follow-up and pt stated that she was at home but had supraventricular tachycardia and they got her heart back in rhythm. Adriana Salcedo PTA documented in this encounter [facility] 11-10-2024 Telephone encounter Note Formatting of this note is different fro m the original. Prescription Refill Information The patient has been identified by name and date of : Yes Caregiver verified no other encounters exist for this prescription request: Yes Caregiver confirmed with patient/requestor that no other refills are due, in the near future, with this provider at this time: Yes The last office visit in the department: 08/16/24 Does the patient have a future office visit with this provider/department: Yes Requested Prescriptions Pending Prescriptions Disp Refills montelukast (SINGULAIR) 10 mg tablet 90 tablet 1 Sig: Take 1 tablet by mouth daily at bedtime. Prosper Rodirguez LPN November 10, 2024 12:55 PM [facility] 11-10-2024 Miscellaneous Notes Formatting of this note is different fro m the original. Prescription Refill Information The patient has been identified by name and date of : Yes Caregiver verified no other encounters exist for this prescription request: Yes Caregiver confirmed with patient/requestor that no other refills are due, in the near future, with this provider at this time: Yes The last office visit in the department: 08/16/24 Does the patient have a future office visit with this provider/department: Yes Requested Prescriptions Pending Prescriptions Disp Refills montelukast (SINGULAIR) 10 mg tablet 90 tablet 1 Sig: Take 1 tablet by mouth daily at bedtime. Prosper Rodriguez LPN November 10, 2024 12:55 PM documented in this encounter [facility] 11-08-2024 History of Present illness Narrative Formatting of this note might be differe nt from the original. Program_ID:[id number] Access Code: [email or web address] URL: [email or web address] Date: 11-08-2024 Prepared By: Barrera Mejia Program Notes Exercises - Hooklying Single Knee to Chest - 1 x daily - 7 x weekly - 3 sets - 3 reps - Supine Double Knee to Chest - 1 x daily - 7 x weekly - 3 sets - 3 reps - Supine Posterior Pelvic Tilt - 1 x daily - 7 x weekly - 3 sets - 10 reps - Seated Thoracic Flexion and Rotation with Citizen [place] Ball - 1 x daily - 7 x weekly - 2 sets - 10 reps - Supine Lower Trunk Rotation - 1 x daily - 7 x weekly - 2 sets - 10 reps Episode Visit Count: 2 Therapist That Will Accept/Oversee The Plan Of Care: Barrera Mejia Start of Care Date: 10/24/24 Onset Date: 07/27/24 Plan of Care Certification Date: 10/24/24 Next Certification Due Date: 01/23/25 Patient Identified by Name and Date of : Yes REHABILITATION AND SPORTS THERAPY PHYSICAL THERAPY TREATMENT NOTE ASSESSMENT: Lupis rBito tolerated the session with fatigue, decreased symptoms, and expected muscle soreness. She demonstrated improvements in low back pain with lumbar flexion with R sidebend. The patient will continue to benefit from ongoing skilled physical therapy to progress toward set goals. PLAN FOR NEXT VISIT: Asses prolonged response to manual traction. Continue with flexion bias with R side bend and n/s strengthening, SUBJECTIVE: Pt reports that her back is not good today. The exercises have made her back hurt worse.Pt states she did some yard work outside yesterday and her back hurt a lot worse, feels a little better currently compared to yesterday. Pt states she has been getting really bad leg cramps in the lower leg. Pain in the side of her leg have moved to her low back and butt. Pt was doing her exercises on the floor. Pain: Pain Pain Level: 6 Pain Location: Low Back/Lumbar Spine - Left Pain Level 2: 8 Pain Location 2: Foot - Left, Foot - Right Description 2: Numbness Frequency 2: Continuous OBJECTIVE MEASURES WITH LEVEL OF FUNCTION: Flexion bias and traction helped relieve symptoms TREATMENT: Therapeutic Exercise: 1: Seated, repeated lumbar flexion x 4 discontinued really hurt in L side of low back 2: *Physioball roll out with R sidebend 2x10 (felt a good stretch and felt relief on the back advised pt to use office chair as ball or use kitchen table to complete exercise) 3: LTR to the R only 2x 10 Skilled Intervention: Patient was educated in proper exercise technique and purpose for exercises. Reviewed and educated patient on additions/changes for home exercise program as above (*). Skilled judgment was used in selection of appropriate interventions. Provided written instruction for home exercise program to facilitate proper performance and compliance. Correct performance of therapeutic exercises was facilitated with verbal and visual cuing. Manual Therapy: 1: [place] lumbar traction with BLE elevated on stool with caudal pull to tolerance x 10 minutes. Pt's symptoms monitored throughout. Skilled Intervention: Manual skills to improve joint mobility, ROM, and decrease pain. Utilized anatomy knowledge of the therapist, and assessment of patient's response to intervention. Self-Skilled Nursing Management: 1: Reviewed imaging with pt and explained the disc bulges at multiple levels. Skilled Intervention: Skilled judgment in the selection of proper modification for activity of daily living/home management based on clinical presentation, deficits, and needs. Activity progression based on professional judgement. Billing Therapeutic Exercise Treatment Minutes: 28 Manual TherapyTreatment Minutes: 10 Self-Care/Home Management Treatment Minutes: 5 Skilled Treatment Time Minutes (timed and untimed codes): 43 Total Session Time (minutes): 43 Session Start Time : 845 Session Stop Time : 928 ZULAY Alarcon PT documented in this encounter [facility] 11-08-2024 Note HNO ID: [id number] Author: BARRERA MEJIA PT Service: ? Author Type: Physical Therapist Type: Progress Notes Filed: 11/10/2024 14:54 Note Text: Episode Visit Count: 2 Therapist That Will Accept/Oversee The Plan Of Care: Barrera Mejia Start of Care Date: 10/24/24 Onset Date: 07/27/24 Plan of Care Certification Date: 10/24/24 Next Certification Due Date: 01/23/25 Patient Identified by Name and Date of : Yes REHABILITATION AND SPORTS THERAPY PHYSICAL THERAPY TREATMENT NOTE ASSESSMENT: Lupis Brito tolerated the session with fatigue, decreased symptoms, and expected muscle soreness. She demonstrated improvements in low back pain with lumbar flexion with R sidebend. The patient will continue to benefit from ongoing skilled physical therapy to progress toward set goals. PLAN FOR NEXT VISIT: Asses prolonged response to manual traction. Continue with flexion bias with R side bend and n/s strengthening, SUBJECTIVE: Pt reports that her back is not good today. The exercises have made her back hurt worse.Pt states she did some yard work outside yesterday and her back hurt a lot worse, feels a little better currently compared to yesterday. Pt states she has been getting really bad leg cramps in the lower leg. Pain in the side of her leg have moved to her low back and butt. Pt was doing her exercises on the floor. Pain: Pain Pain Level: 6 Pain Location: Low Back/Lumbar Spine - Left Pain Level 2: 8 Pain Location 2: Foot - Left, Foot - Right Description 2: Numbness Frequency 2: Continuous OBJECTIVE MEASURES WITH LEVEL OF FUNCTION: Flexion bias and traction helped relieve symptoms TREATMENT: Therapeutic Exercise: 1: Seated, repeated lumbar flexion x 4 discontinued really hurt in L side of low back 2: *Physioball roll out with R sidebend 2x10 (felt a good stretch and felt relief on the back advised pt to use office chair as ball or use kitchen table to complete exercise) 3: LTR to the R only 2x 10 Skilled Intervention: Patient was educated in proper exercise technique and purpose for exercises. Reviewed and educated patient on additions/changes for home exercise program as above (*). Skilled judgment was used in selection of appropriate interventions. Provided written instruction for home exercise program to facilitate proper performance and compliance. Correct performance of therapeutic exercises was facilitated with verbal and visual cuing. Manual Therapy: 1: Manula lumbar traction with BLE elevated on stool with caudal pull to tolerance x 10 minutes. Pt's symptoms monitored throughout. Skilled Intervention: Manual skills to improve joint mobility, ROM, and decrease pain. Utilized anatomy knowledge of the therapist, and assessment of patient's response to intervention. Self-Skilled Nursing Management: 1: Reviewed imaging with pt and explained the disc bulges at multiple levels. Skilled Intervention: Skilled judgment in the selection of proper modification for activity of daily living/home management based on clinical presentation, deficits, and needs. Activity progression based on professional judgement. Billing Therapeutic Exercise Treatment Minutes: 28 Manual TherapyTreatment Minutes: 10 Self-Care/Home Management Treatment Minutes: 5 Skilled Treatment Time Minutes (timed and untimed codes): 43 Total Session Time (minutes): 43 Session Start Time : 845 Session Stop Time : 928 ZULAY Alarcon PT [facility] 10-24-2024 Note HNO ID: [id number] Author: BARRERA MEJIA PT Service: ? Author Type: Physical Therapist Type: Progress Notes Filed: 10/24/2024 10:47 Note Text: Episode Visit Count: 1 Therapist That Will Accept/Oversee The Plan Of Care: Barrera Mejia Start of Care Date: 10/24/24 Onset Date: 07/27/24 Plan of Care Certification Date: 10/24/24 Next Certification Due Date: 01/23/25 Patient Identified by Name and Date of : Yes REHABILITATION AND SPORTS THERAPY PHYSICAL THERAPY EVALUATION PLAN OF CARE: Assessment: Lupis Brito presents with chief complaint of LBP and BLE numbness that interferes with sitting, walking in the community, heavy exertion . The patient presents with impairments in ADL's, overall function, range of motion, strength, and symptom management. PROMIS? (Patient-Reported Outcomes Measurement Information System) scores were reviewed and identified as a rehabilitation concern. Prognosis for therapy is Good due to: current objective clinical presentation, good overall health status, within-session changes, good support system/ coping skills . The patient will benefit from skilled therapy services to meet the goals established for this plan of care as noted below. Classification Pain Mechanism Classification: Neuropathic Low Back Pain Classification: Symptom Modulation Goals for Episode of Care: established 10/24/24 Independent in home exercises. Patient will decrease pain rating by 2 points to meet minimal clinical important difference for numeric pain rating scale. Restore pain-free lumbar ROM to WNL to allow for decreased pain and improved functional mobility Sleep through night without pain/symptoms. Sit 1 hours without pain/symptoms to allow for improved tolerance for driving and sitting ADLs Patient will increase strength of trunk/core to 4/5 to allow for improve ability to complete ADLs. Time Frame for Goals and Treatment : 12/24/24 Planned Interventions, Frequency, and Duration: Current Frequency: 1x/week Duration: 8 weeks Total Number of Visits Planned: 8 Planned Treatment Interventions: Therapeutic exercise (60288), Neuromuscular re-education (51851), Manual therapy (28879), Therapeutic activities (93105), Self-alf management (68121), Patient/Family/Caregiver Education, Body Mechanics Training PLAN FOR NEXT VISIT: Continue flexion bias, may trial traction, neutral spine strengthening Patient demonstrates good understanding of plan of care and treatment. The above goals and plan of care were discussed and agreed upon by patient/family. SUBJECTIVE: LBP worsening for ~6 months to a year, with insidious onset. Sitting is the worst pain she gets. L>R numbness in her feet. Denies falls, but has noticed she catches her foot more often with this worsening n/t. Sitting in a recliner is the worst. Anything prolonged can bother her, but she feels best changing positions frequently. Bending can also relieve symptoms. MRI reveals canal and forminal stenosis Functional Limitations: sitting, walking in the community, heavy exertion Prior Level of Function: Independent without limitations Intake Information: Prescription present Pain: Pain Pain Level: 6 Pain Location: Low Back/Lumbar Spine - Left Description: Dull, Aching Frequency: Continuous Additional Pain Information : Location 2 Pain Level 2: 8 Pain Location 2: Foot - Left Description 2: Numbness Frequency 2: Continuous PROMIS Scales 10/17/2024 Higher is Better Self-Eff Symptom - T Score 41 (Average) Self-Eff Symptom - Percentile 18 10/17/2024 Lower is Better Pain Interference - T Score 53 (within normal limits) Pain Interference - Percentile 38 T-scores: mean of general population = 50. 5 points is clinically meaningfully difference Percentiles provide an indication of how the patient's score ranks in relation to the general population. Higher percentile rankings indicate better function/quality of life. 50th percentile is the average of the general population and indicates half of respondents had a worse score. OBJECTIVE MEASURES WITH LEVEL OF FUNCTION: Reflexes - Lower Extremity R Patellar: 2+ R Achilles: 1+ L Patellar: Absent L Achilles: Absent Lumbar Spine AROM Lumbar Flexion: Normal Lumbar Extension: Normal Lumbar R Side-Bend: Increased pain Lumbar L Side-Bend: Increased pain Lumbar R Rotation: Normal Lumbar L Rotation: Normal Repeated Test Movements - Lumbar RFIL - Symptoms During: decreases RFIL - Symptoms After: better LE Strength Trunk Strength: 3+/5 R LE Strength: 4+/5 grossly L LE Strength: 4+/5 grossly Special Tests - Hip and Spine Hip and Spine Special Tests: SLR Test SLR Test: Right Positive, Left Positive Education: Education Learning Preferences: Demonstration, Explanation Barriers: None Learning/educational needs: Home exercise program, Plan of Care, Posture, Body Mechanics Education Provided: Yes, see tricia (more content not included)... [facility] 10-24-2024 History of Present illness Narrative Formatting of this note is different fro m the original. Episode Visit Count: 1 Therapist That Will Accept/Oversee The Plan Of Care: Barrera Mejia Start of Care Date: 10/24/24 Onset Date: 07/27/24 Plan of Care Certification Date: 10/24/24 Next Certification Due Date: 01/23/25 Patient Identified by Name and Date of : Yes REHABILITATION AND SPORTS THERAPY PHYSICAL THERAPY EVALUATION PLAN OF CARE: Assessment: Lupis Brito presents with chief complaint of LBP and BLE numbness that interferes with sitting, walking in the community, heavy exertion . The patient presents with impairments in ADL's, overall function, range of motion, strength, and symptom management. PROMIS (Patient-Reported Outcomes Measurement Information System) scores were reviewed and identified as a rehabilitation concern. Prognosis for therapy is Good due to: current objective clinical presentation, good overall health status, within-session changes, good support system/ coping skills . The patient will benefit from skilled therapy services to meet the goals established for this plan of care as noted below. Classification Pain Mechanism Classification: Neuropathic Low Back Pain Classification: Symptom Modulation Goals for Episode of Care: established 10/24/24 Independent in home exercises. Patient will decrease pain rating by 2 points to meet minimal clinical important difference for numeric pain rating scale. Restore pain-free lumbar ROM to WNL to allow for decreased pain and improved functional mobility Sleep through night without pain/symptoms. Sit 1 hours without pain/symptoms to allow for improved tolerance for driving and sitting ADLs Patient will increase strength of trunk/core to 4/5 to allow for improve ability to complete ADLs. Time Frame for Goals and Treatment : 12/24/24 Planned Interventions, Frequency, and Duration: Current Frequency: 1x/week Duration: 8 weeks Total Number of Visits Planned: 8 Planned Treatment Interventions: Therapeutic exercise (10185), Neuromuscular re-education (64520), Manual therapy (18170), Therapeutic activities (45420), Self-alf management (25537), Patient/Family/Caregiver Education, Body Mechanics Training PLAN FOR NEXT VISIT: Continue flexion bias, may trial traction, neutral spine strengthening Patient demonstrates good understanding of plan of care and treatment. The above goals and plan of care were discussed and agreed upon by patient/family. SUBJECTIVE: LBP worsening for ~6 months to a year, with insidious onset. Sitting is the worst pain she gets. L>R numbness in her feet. Denies falls, but has noticed she catches her foot more often with this worsening n/t. Sitting in a recliner is the worst. Anything prolonged can bother her, but she feels best changing positions frequently. Bending can also relieve symptoms. MRI reveals canal and forminal stenosis Functional Limitations: sitting, walking in the community, heavy exertion Prior Level of Function: Independent without limitations Intake Information: Prescription present Pain: Pain Pain Level: 6 Pain Location: Low Back/Lumbar Spine - Left Description: Dull, Aching Frequency: Continuous Additional Pain Information : Location 2 Pain Level 2: 8 Pain Location 2: Foot - Left Description 2: Numbness Frequency 2: Continuous PROMIS Scales 10/17/2024 Higher is Better Self-Eff Symptom - T Score 41 (Average) Self-Eff Symptom - Percentile 18 10/17/2024 Lower is Better Pain Interference - T Score 53 (within normal limits) Pain Interference - Percentile 38 T-scores: mean of general population = 50. 5 points is clinically meaningfully difference Percentiles provide an indication of how the patient's score ranks in relation to the general population. Higher percentile rankings indicate better function/quality of life. 50th percentile is the average of the general population and indicates half of respondents had a worse score. OBJECTIVE MEASURES WITH LEVEL OF FUNCTION: Reflexes - Lower Extremity R Patellar: 2+ R Achilles: 1+ L Patellar: Absent L Achilles: Absent Lumbar Spine AROM Lumbar Flexion: Normal Lumbar Extension: Normal Lumbar R Side-Bend: Increased pain Lumbar L Side-Bend: Increased pain Lumbar R Rotation: Normal Lumbar L Rotation: Normal Repeated Test Movements - Lumbar RFIL - Symptoms During: decreases RFIL - Symptoms After: better LE Strength Trunk Strength: 3+/5 R LE Strength: 4+/5 grossly L LE Strength: 4+/5 grossly Special Tests - Hip and Spine Hip and Spine Special Tests: SLR Test SLR Test: Right Positive, Left Positive Education: Education Learning Preferences: Demonstration, Explanation Barriers: None Learning/educational needs: Home exercise program, Plan of Care, Posture, Body Mechanics Education Provided: Yes, see treatment interventions for education provided Education Provided To: Patient Education Mode/Type: Demonstration, Explanation/Discussion, Performance Response to Education/Teach Back: States/Identifies, Return Demonstration TREATMENT: PT Treatment Interventions: Therapeutic Exercise Evaluation Therapeutic Exercise: 1: *SKC 3x30 sec 2: *DKC 3x30 sec 3: *PPT 3x10, 3-5 sec holds Skilled Intervention: Patient was educated in proper exercise technique and purpose for exercises. Skilled judgment was used in selection of appropriate interventions. Provided written instruction for home exercise program to facilitate proper performance and compliance. Correct performance of therapeutic exercises was facilitated with verbal, visual, and tactile cuing. Billing * Evaluation Low Complexity: 1 Unit Therapeutic Exercise Treatment Minutes: 10 Skilled Treatment Time Minutes (timed and untimed codes): 30 Total Session Time (minutes): 30 Session Start Time : 09 Session Stop Time : 939 Barrera Mejia PT Program_ID:[id number] Access Code: [email or web address] URL: [email or web address] Date: 10-24-2024 Prepared By: Barrera Mejia Program Notes Exercises - Hooklying Single Knee to Chest - 1 x daily - 7 x weekly - 3 sets - 3 reps - Supine Double Knee to Chest - 1 x daily - 7 x weekly - 3 sets - 3 reps - Supine Posterior Pelvic Tilt - 1 x daily - 7 x weekly - 3 sets - 10 reps documented in this encounter [facility] 10-20-2024 Note HNO ID: [id number] Author: CODY JULIAN, DO Service: ? 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 HPI: The patient is a 74-year-old female with a past medical history as outlined below. Protein electrophoresis was ordered to workup symptoms of peripheral neuropathy. EMG testing at [facility] suggested left and right peroneal neuropathy with evidence of a mild conduction block at the fibular head bilaterally. There was no electrodiagnostic evidence of peripheral polyneuropathy or lumbosacral radiculopathy. Trace proteinuria on urinalysis 08/12/2024. CBC and chemistry panels in July 2024 were unremarkable. Initial consultation: Fatigued, but active. Walks her dog. Goes to [employer]. Occasional dizziness. Intermittent dull FISHER. Describes the neuropathy as numbness of the soles of the feet and the toes. Toes are very sensitive at night when the sheet is on them. She does not have any balance problems. No strength problems. Occasionally the pain will radiate up to the knee on the left more laterally not so much on the right. Presents for ongoing hematologic management. Interim history: Had MRI spine--results reviewed. Explains symptoms. PAST MEDICAL HISTORY Diagnosis Date Acute gastritis [...] 12/12/2009 PAST SURGICAL HISTORY Procedure Laterality Date BACK SURGERY HX SECTION HX 09/27/1980 COLSC FLX W/RMVL OF TUMOR POLYP LESION SNARE TQ 01/03/2008 Repeat in EGD TRANSORAL BIOPSY SINGLE/MULTIPLE 01/03/2008 EXC LESION TDN SHTH/JT CAPSL HAND/FNGR Right 04/10/2022 Excision ganglion cyst right 5th finger PAST SURGICAL HISTORY OF 07/27/1979 deviated septum QVAR REDIHALER 40 mcg/actuation inhalerInhale 2 Puffs as instructed two times a day.Disp: Rfl: gabapentin (NEURONTIN) 300 mg capsuleTake 1 capsule by mouth two times a day for 180 days.Disp: 180 capsuleRfl: 1 RESTASIS 0.05 % ophthalmic emulsionUse 1 Drop in both eyes two times a day.Disp: Rfl: meloxicam (MOBIC) 7.5 mg tabletTake 1 tablet by mouth once daily.Disp: 90 tabletRfl: 1 montelukast (SINGULAIR) 10 mg tabletTake 1 tablet by mouth daily at bedtime.Disp: 90 tabletRfl: 1 fluticasone (FLONASE) 50 mcg/actuation nasal sprayinstill 2 sprays into each nostril once dailyDisp: 3 EachRfl: 3 calcium carbonate (CALCIUM 300 ORAL)Take 1 tablet by mouth once daily.Disp: Rfl: albuterol HFA (VENTOLIN HFA) 90 mcg/actuation inhalerInhale 2 Puffs as instructed every 4 hours as needed for wheezing/shortness of breath.Disp: 3 EachRfl: 2 MELATONIN ORALTake 10 mg by mouth at bedtime as needed.Disp: Rfl: VITAMIN B COMPLEX ORALTake by mouth.Disp: Rfl: L.ACID/L.CASEI/B.BIF/B.ROBIN/FOS (PROBIOTIC BLEND ORAL)Take 1 tablet by mouth once daily.Disp: Rfl: folic acid 800 mcg ORAL TabTake one(1) tablet daily.Disp: Rfl: 0 DAILY MULTIVITAMIN TABTake one(1) tablet daily.Disp: Rfl: 0 ALLERGIES Allergen Reactions Clindamycin Rash Boniva [Ibandronate] GI Upset Increase in GERD Doxycycline Other: See Comments Accelerated heart rate Fosamax [Alendronat* GI Upset Increase heartburn/GI Mold Other: See Comments Nasal/sinus Penicillins Unknown Pollen Extracts Other: See Comments Nasal/sinus Sulfa (Sulfonamide * Unknown Social History Tobacco Use Smoking status: Never Smokeless tobacco: Never Vaping Use Vaping status: Never Used Substance Use Topics Alcohol use: Yes Comment: occasionally Drug use: No FAMILY HISTORY Problem Relation Age of Onset Hypertension Mother Lipids Mother Skin Cancer Mother chemo and radiation Heart Father irregular heart beat. Skin Cancer Sister Asthma No Family History Coronary Artery Disease No Family History REVIEW OF SYSTEMS: Constitutional: No episodes of fever and night sweats. Not significantly fatigued. Normal appetite. Neuro: See above. HEENT: No recent change in voice, vision or hearing. Resp: Morning cough. No hemoptysis. No shortness of breath at rest. No SULTANA with walking. C (more content not included)... [facility] 10-20-2024 History of Present illness Narrative Formatting of this note is different fro m the original. 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 HPI: The patient is a 74-year-old female with a past medical history as outlined below. Protein electrophoresis was ordered to workup symptoms of peripheral neuropathy. EMG testing at [facility] suggested left and right peroneal neuropathy with evidence of a mild conduction block at the fibular head bilaterally. There was no electrodiagnostic evidence of peripheral polyneuropathy or lumbosacral radiculopathy. Trace proteinuria on urinalysis 08/12/2024. CBC and chemistry panels in July 2024 were unremarkable. Initial consultation: Fatigued, but active. Walks her dog. Goes to [employer]. Occasional dizziness. Intermittent dull FISHER. Describes the neuropathy as numbness of the soles of the feet and the toes. Toes are very sensitive at night when the sheet is on them. She does not have any balance problems. No strength problems. Occasionally the pain will radiate up to the knee on the left more laterally not so much on the right. Presents for ongoing hematologic management. Interim history: Had MRI spine--results reviewed. Explains symptoms. PAST MEDICAL HISTORY Diagnosis Date Acute gastritis [...] 12/12/2009 PAST SURGICAL HISTORY Procedure Laterality Date BACK SURGERY HX SECTION HX 09/27/1980 COLSC FLX W/RMVL OF TUMOR POLYP LESION SNARE TQ 01/03/2008 Repeat in EGD TRANSORAL BIOPSY SINGLE/MULTIPLE 01/03/2008 EXC LESION TDN SHTH/JT CAPSL HAND/FNGR Right 04/10/2022 Excision ganglion cyst right 5th finger PAST SURGICAL HISTORY OF 07/27/1979 deviated septum QVAR REDIHALER 40 mcg/actuation inhaler^Inhale 2 Puffs as instructed two times a day.^Disp: ^Rfl: gabapentin (NEURONTIN) 300 mg capsule^Take 1 capsule by mouth two times a day for 180 days.^Disp: 180 capsule^Rfl: 1 RESTASIS 0.05 % ophthalmic emulsion^Use 1 Drop in both eyes two times a day.^Disp: ^Rfl: meloxicam (MOBIC) 7.5 mg tablet^Take 1 tablet by mouth once daily.^Disp: 90 tablet^Rfl: 1 montelukast (SINGULAIR) 10 mg tablet^Take 1 tablet by mouth daily at bedtime.^Disp: 90 tablet^Rfl: 1 fluticasone (FLONASE) 50 mcg/actuation nasal spray^instill 2 sprays into each nostril once daily^Disp: 3 Each^Rfl: 3 calcium carbonate (CALCIUM 300 ORAL)^Take 1 tablet by mouth once daily.^Disp: ^Rfl: albuterol HFA (VENTOLIN HFA) 90 mcg/actuation inhaler^Inhale 2 Puffs as instructed every 4 hours as needed for wheezing/shortness of breath.^Disp: 3 Each^Rfl: 2 MELATONIN ORAL^Take 10 mg by mouth at bedtime as needed.^Disp: ^Rfl: VITAMIN B COMPLEX ORAL^Take by mouth.^Disp: ^Rfl: L.ACID/L.CASEI/B.BIF/B.ROBIN/FOS (PROBIOTIC BLEND ORAL)^Take 1 tablet by mouth once daily.^Disp: ^Rfl: folic acid 800 mcg ORAL Tab^Take one(1) tablet daily.^Disp: ^Rfl: 0 DAILY MULTIVITAMIN TAB^Take one(1) tablet daily.^Disp: ^Rfl: 0 ALLERGIES Allergen Reactions Clindamycin Rash Boniva [Ibandronate] GI Upset Increase in GERD Doxycycline Other: See Comments Accelerated heart rate Fosamax [Alendronat* GI Upset Increase heartburn/GI Mold Other: See Comments Nasal/sinus Penicillins Unknown Pollen Extracts Other: See Comments Nasal/sinus Sulfa (Sulfonamide * Unknown Social History Tobacco Use Smoking status: Never Smokeless tobacco: Never Vaping Use Vaping status: Never Used Substance Use Topics Alcohol use: Yes Comment: occasionally Drug use: No FAMILY HISTORY Problem Relation Age of Onset Hypertension Mother Lipids Mother Skin Cancer Mother chemo and radiation Heart Father irregular heart beat. Skin Cancer Sister Asthma No Family History Coronary Artery Disease No Family History REVIEW OF SYSTEMS: Constitutional: No episodes of fever and night sweats. Not significantly fatigued. Normal appetite. Neuro: See above. HEENT: No recent change in voice, vision or hearing. Resp: Morning cough. No hemoptysis. No shortness of breath at rest. No SULTANA with walking. CVS: No exertional chest pain, PND, orthopnea and LE edema. GI: No reflux, n/v, change in bowel habits or abdominal pain. No diarrhea. : No dysuria or gross hematuria. Endo: No hot flashes. No polyuria and polydipsia. No heat and cold intolerance. Musculoskeletal: Arthritic pain hands, shoulders, neck and low back (spinal stenosis). Derm: No current rash. No history of jaundice or diffuse pruritis. Heme: No unusual bleeding and unexplained bruising. Psych: Normal mood. PHYSICAL EXAM: Vitals: Blood pressure 113/75, pulse 69, temperature 36.8 C (98.2 F), temperature source Temporal, height 162.3 cm (5' 3.88), weight 59.4 kg (131 lb), SpO2 98%. Well-appearing and in no acute distress. EYES: Sclerae are anicteric bilaterally. LYMPHATIC: There is no palpable adenopathy. CARDIOVASCULAR: Rhythm is regular. ABDOMEN: The abdomen is nondistended. Extremities: No swelling or edema. SKIN: No jaundice or rash. No petechiae. NEUROLOGIC: certified personal finance counselor II-XII are grossly intact. No focal motor weakness--able to stand on her tiptoes. Foot dorsiflexion normal bilaterally. Patellar DTR on the left absent. Normal on the right. Achilles reflexes normal bilaterally. 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 -Reviewed all the lab work in detail. No clear evidence of MP. 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 Discussed one further assessment in 6 months and, if no change, then no further monitoring required. Plan: -Recheck in 6 months. Portions of this documentation were copied and pasted from my previous office visit note dated 10/04/2024 in order to provide a cohesive continuity of the history. The note has been reviewed and edited and updated as necessary. I spent a total of 20 minutes on the date of the service which included preparing to see the patient, [id number] patient care, completing clinical documentation, performing a medically appropriate examination, counseling and educating the patient/family/caregiver, communicating with other HCPs (not separately reported), and communicating results to the patient/family/caregiver. Cody Julian DO documented in this encounter [facility] 10-12-2024 History of Present illness Narrative Formatting of this note might be differe nt from the original. Radiology Service Progress Note PATIENT NAME: Lupis Brito DATE OF SERVICE: October 12, 2024 TIME: 7:00 AM PATIENT IDENTITY VERIFICATION COMPLETED USING TWO (2) IDENTIFIERS: Name and Date of confirmed by patient verbally. FALL SCREENING: Has the patient had 2 falls in the last year or 1 fall with injury or currently using an Ambulatory Assistive Device (Walker, Cane, Wheelchair, Crutches, etc.)? No PATIENT GENDER DATA: Assigned female at . status: : No status: NO. PATIENT RELEVANT IMPLANT DATA REVIEWED: Yes PATIENT PRESENTS WITH AN IMPLANTABLE OR ATTACHED INSURANCE ASSOCIATE: No RADIOLOGY DEPARTMENT: MR; Exam(s) Completed: Spine: Lumbar spine PERIPHERAL IV DATA: Not applicable SIGNED BY: RT Judy(R) October 12, 2024 7:00 AM documented in this encounter [facility] 10-12-2024 Note HNO ID: [id number] Author: MELANY CARRIZALES RT(Gonzalo) Service: ? Author Type: Technologist Type: Progress Notes Filed: 10/12/2024 07:04 Note Text: Radiology Service Progress Note PATIENT NAME: Lupis Brito DATE OF SERVICE: October 12, 2024 TIME: 7:00 AM PATIENT IDENTITY VERIFICATION COMPLETED USING TWO (2) IDENTIFIERS: Name and Date of confirmed by patient verbally. FALL SCREENING: Has the patient had 2 falls in the last year or 1 fall with injury or currently using an Ambulatory Assistive Device (Walker, Cane, Wheelchair, Crutches, etc.)? No PATIENT GENDER DATA: Assigned female at . status: : No status: NO. PATIENT RELEVANT IMPLANT DATA REVIEWED: Yes PATIENT PRESENTS WITH AN IMPLANTABLE OR ATTACHED INSURANCE ASSOCIATE: No RADIOLOGY DEPARTMENT: MR; Exam(s) Completed: Spine: Lumbar spine PERIPHERAL IV DATA: Not applicable SIGNED BY: Melany Carrizales, RT(R) October 12, 2024 7:00 AM [facility] 10-11-2024 Telephone encounter Note Formatting of this note might be differe nt from the original. Pt returning a call. Transferred to housekeeping aide's to set up MRI appt. [facility] 10-11-2024 Miscellaneous Notes Formatting of this note might be differe nt from the original. Pt returning a call. Transferred to housekeeping aide's to set up MRI appt. TC to patient who verbalized understanding of providers message below. Patient is already scheduled with PT and would like to move forward with imaging. Please contact patient and assist with scheduling Lumbar MRI. Thank you. PRABHU Jean-Baptiste EMG of the lower extremity shows compression of the S1 nerve but no signs of peroneal neuropathy. Would recommend repeat imaging of the lumbar spine to look for worsening impingement, would also consider PT if patient is amenable as this can relieve some compression on the nerves. documented in this encounter [facility] 10-07-2024 Telephone encounter Note Formatting of this note might be differe nt from the original. TC to patient who verbalized understanding of providers message below. Patient is already scheduled with PT and would like to move forward with imaging. Please contact patient and assist with scheduling Lumbar MRI. Thank you. PRABHU Jean-Baptiste [facility] 10-07-2024 Telephone encounter Note Formatting of this note might be differe nt from the original. EMG of the lower extremity shows compression of the S1 nerve but no signs of peroneal neuropathy. Would recommend repeat imaging of the lumbar spine to look for worsening impingement, would also consider PT if patient is amenable as this can relieve some compression on the nerves. [facility] 10-07-2024 Note HNO ID: [id number] Author: NIEVES HUIZAR DO Service: ? Author Type: Physician Type: Progress Notes Filed: 10/07/2024 08:42 Note Text: UNIVERSAL PROTOCOL / SAFETY CHECKLIST Procedure to be Performed: EMG Sign In: A Moment of CARE was completed. Personnel directly involved with the procedure wore the appropriate PPE (Personal Protective Equipment). Patient/Surrogate Stated/Verified: Patient name, Date of , Relevant allergies, and The intended procedure Time Out Communication: Intended patient and procedure match the source documents. Correct side/site marked and visible. Sign Out: SIGN OUT (optional for EMERGENT procedures): Post-procedure follow-up management communicated and Plan of Care Visit completed when applicable. JENNY Page DO [facility] 10-07-2024 History of Present illness Narrative Formatting of this note might be differe nt from the original. UNIVERSAL PROTOCOL / SAFETY CHECKLIST Procedure to be Performed: EMG Sign In: A Moment of CARE was completed. Personnel directly involved with the procedure wore the appropriate PPE (Personal Protective Equipment). Patient/Surrogate Stated/Verified: Patient name, Date of , Relevant allergies, and The intended procedure Time Out Communication: Intended patient and procedure match the source documents. Correct side/site marked and visible. Sign Out: SIGN OUT (optional for EMERGENT procedures): Post-procedure follow-up management communicated and Plan of Care Visit completed when applicable. JENNY Page DO documented in this encounter [facility] 10-05-2024 Note HNO ID: [id number] Author: ?, ?, ? Service: ? Author Type: LICENSED NURSE Type: Progress Notes Filed: 10/05/2024 14:22 Note Text: Patient presents for Prolia injection. Denies any problems at this time. Brought own medication. Patient instructed on any SE of medication, verbalized understanding and agreed to proceed with treatment. Tolerated injection well. Susanne West LPN [facility] 10-05-2024 History of Present illness Narrative Formatting of this note might be differe nt from the original. Patient presents for Prolia injection. Denies any problems at this time. Brought own medication. Patient instructed on any SE of medication, verbalized understanding and agreed to proceed with treatment. Tolerated injection well. Susanne West LPN documented in this encounter [facility] 10-04-2024 Note HNO ID: [id number] Author: CODY JULIAN DO Service: ? Author Type: Physician Type: Progress Notes Filed: 10/04/2024 15:55 Note Text: Patient referred by Rody Pablo PA-C for possible monoclonal gammopathy. HPI: The patient is a 74-year-old female with a past medical history as outlined below. Protein electrophoresis was ordered to workup symptoms of peripheral neuropathy. EMG testing at [facility] suggested left and right peroneal neuropathy with evidence of a mild conduction block at the fibular head bilaterally. There was no electrodiagnostic evidence of peripheral polyneuropathy or lumbosacral radiculopathy. Trace proteinuria on urinalysis 08/12/2024. CBC and chemistry panels in July 2024 were unremarkable. Fatigued, but active. Walks her dog. Goes to [employer]. Occasional dizziness. Intermittent dull FISHER. Describes the neuropathy as numbness of the soles of the feet and the toes. Toes are very sensitive at night when the sheet is on them. She does not have any balance problems. No strength problems. Occasionally the pain will radiate up to the knee on the left more laterally not so much on the right. PAST MEDICAL HISTORY Diagnosis Date Acute gastritis [...] 12/12/2009 PAST SURGICAL HISTORY Procedure Laterality Date BACK SURGERY HX SECTION HX 09/27/1980 COLSC FLX W/RMVL OF TUMOR POLYP LESION SNARE TQ 01/03/2008 Repeat in EGD TRANSORAL BIOPSY SINGLE/MULTIPLE 01/03/2008 EXC LESION TDN SHTH/JT CAPSL HAND/FNGR Right 04/10/2022 Excision ganglion cyst right 5th finger PAST SURGICAL HISTORY OF 07/27/1979 deviated septum QVAR REDIHALER 40 mcg/actuation inhalerInhale 2 Puffs as instructed two times a day.Disp: Rfl: gabapentin (NEURONTIN) 300 mg capsuleTake 1 capsule by mouth two times a day for 180 days.Disp: 180 capsuleRfl: 1 RESTASIS 0.05 % ophthalmic emulsionUse 1 Drop in both eyes two times a day.Disp: Rfl: meloxicam (MOBIC) 7.5 mg tabletTake 1 tablet by mouth once daily.Disp: 90 tabletRfl: 1 montelukast (SINGULAIR) 10 mg tabletTake 1 tablet by mouth daily at bedtime.Disp: 90 tabletRfl: 1 fluticasone (FLONASE) 50 mcg/actuation nasal sprayinstill 2 sprays into each nostril once dailyDisp: 3 EachRfl: 3 calcium carbonate (CALCIUM 300 ORAL)Take 1 tablet by mouth once daily.Disp: Rfl: albuterol HFA (VENTOLIN HFA) 90 mcg/actuation inhalerInhale 2 Puffs as instructed every 4 hours as needed for wheezing/shortness of breath.Disp: 3 EachRfl: 2 MELATONIN ORALTake 10 mg by mouth at bedtime as needed.Disp: Rfl: L.ACID/L.CASEI/B.BIF/B.ROBIN/FOS (PROBIOTIC BLEND ORAL)Take 1 tablet by mouth once daily.Disp: Rfl: folic acid 800 mcg ORAL TabTake one(1) tablet daily.Disp: Rfl: 0 DAILY MULTIVITAMIN TABTake one(1) tablet daily.Disp: Rfl: 0 VITAMIN B COMPLEX ORALTake by mouth.Disp: Rfl: ALLERGIES Allergen Reactions Clindamycin Rash Boniva [Ibandronate] GI Upset Increase in GERD Doxycycline Other: See Comments Accelerated heart rate Fosamax [Alendronat* GI Upset Increase heartburn/GI Mold Other: See Comments Nasal/sinus Penicillins Unknown Pollen Extracts Other: See Comments Nasal/sinus Sulfa (Sulfonamide * Unknown Social History Tobacco Use Smoking status: Never Smokeless tobacco: Never Vaping Use Vaping status: Never Used Substance Use Topics Alcohol use: Yes Comment: occasionally Drug use: No FAMILY HISTORY Problem Relation Age of Onset Hypertension Mother Lipids Mother Skin Cancer Mother chemo and radiation Heart Father irregular heart beat. Skin Cancer Sister Asthma No Family History Coronary Artery Disease No Family History REVIEW OF SYSTEMS: Constitutional: No episodes of fever and night sweats. Not significantly fatigued. Normal appetite. Neuro: See above. HEENT: No recent change in voice, vision or hearing. Resp: Morning cough. No hemoptysis. No shortness of breath at rest. No SULTANA with walking. CVS: No exertional chest pain, PND, orthopnea and LE edema. GI: No reflux, n/v, change in bowel habits or abdominal pain. No (more content not included)... [facility] 10-04-2024 History of Present illness Narrative Formatting of this note is different fro m the original. Patient referred by Rody Pablo PA-C for possible monoclonal gammopathy. HPI: The patient is a 74-year-old female with a past medical history as outlined below. Protein electrophoresis was ordered to workup symptoms of peripheral neuropathy. EMG testing at [facility] suggested left and right peroneal neuropathy with evidence of a mild conduction block at the fibular head bilaterally. There was no electrodiagnostic evidence of peripheral polyneuropathy or lumbosacral radiculopathy. Trace proteinuria on urinalysis 08/12/2024. CBC and chemistry panels in July 2024 were unremarkable. Fatigued, but active. Walks her dog. Goes to [employer]. Occasional dizziness. Intermittent dull FISHER. Describes the neuropathy as numbness of the soles of the feet and the toes. Toes are very sensitive at night when the sheet is on them. She does not have any balance problems. No strength problems. Occasionally the pain will radiate up to the knee on the left more laterally not so much on the right. PAST MEDICAL HISTORY Diagnosis Date Acute gastritis [...] 12/12/2009 PAST SURGICAL HISTORY Procedure Laterality Date BACK SURGERY HX SECTION HX 09/27/1980 COLSC FLX W/RMVL OF TUMOR POLYP LESION SNARE TQ 01/03/2008 Repeat in EGD TRANSORAL BIOPSY SINGLE/MULTIPLE 01/03/2008 EXC LESION TDN SHTH/JT CAPSL HAND/FNGR Right 04/10/2022 Excision ganglion cyst right 5th finger PAST SURGICAL HISTORY OF 07/27/1979 deviated septum QVAR REDIHALER 40 mcg/actuation inhaler^Inhale 2 Puffs as instructed two times a day.^Disp: ^Rfl: gabapentin (NEURONTIN) 300 mg capsule^Take 1 capsule by mouth two times a day for 180 days.^Disp: 180 capsule^Rfl: 1 RESTASIS 0.05 % ophthalmic emulsion^Use 1 Drop in both eyes two times a day.^Disp: ^Rfl: meloxicam (MOBIC) 7.5 mg tablet^Take 1 tablet by mouth once daily.^Disp: 90 tablet^Rfl: 1 montelukast (SINGULAIR) 10 mg tablet^Take 1 tablet by mouth daily at bedtime.^Disp: 90 tablet^Rfl: 1 fluticasone (FLONASE) 50 mcg/actuation nasal spray^instill 2 sprays into each nostril once daily^Disp: 3 Each^Rfl: 3 calcium carbonate (CALCIUM 300 ORAL)^Take 1 tablet by mouth once daily.^Disp: ^Rfl: albuterol HFA (VENTOLIN HFA) 90 mcg/actuation inhaler^Inhale 2 Puffs as instructed every 4 hours as needed for wheezing/shortness of breath.^Disp: 3 Each^Rfl: 2 MELATONIN ORAL^Take 10 mg by mouth at bedtime as needed.^Disp: ^Rfl: L.ACID/L.CASEI/B.BIF/B.ROBIN/FOS (PROBIOTIC BLEND ORAL)^Take 1 tablet by mouth once daily.^Disp: ^Rfl: folic acid 800 mcg ORAL Tab^Take one(1) tablet daily.^Disp: ^Rfl: 0 DAILY MULTIVITAMIN TAB^Take one(1) tablet daily.^Disp: ^Rfl: 0 VITAMIN B COMPLEX ORAL^Take by mouth.^Disp: ^Rfl: ALLERGIES Allergen Reactions Clindamycin Rash Boniva [Ibandronate] GI Upset Increase in GERD Doxycycline Other: See Comments Accelerated heart rate Fosamax [Alendronat* GI Upset Increase heartburn/GI Mold Other: See Comments Nasal/sinus Penicillins Unknown Pollen Extracts Other: See Comments Nasal/sinus Sulfa (Sulfonamide * Unknown Social History Tobacco Use Smoking status: Never Smokeless tobacco: Never Vaping Use Vaping status: Never Used Substance Use Topics Alcohol use: Yes Comment: occasionally Drug use: No FAMILY HISTORY Problem Relation Age of Onset Hypertension Mother Lipids Mother Skin Cancer Mother chemo and radiation Heart Father irregular heart beat. Skin Cancer Sister Asthma No Family History Coronary Artery Disease No Family History REVIEW OF SYSTEMS: Constitutional: No episodes of fever and night sweats. Not significantly fatigued. Normal appetite. Neuro: See above. HEENT: No recent change in voice, vision or hearing. Resp: Morning cough. No hemoptysis. No shortness of breath at rest. No SULTANA with walking. CVS: No exertional chest pain, PND, orthopnea and LE edema. GI: No reflux, n/v, change in bowel habits or abdominal pain. No diarrhea. : No dysuria or gross hematuria. Endo: No hot flashes. No polyuria and polydipsia. No heat and cold intolerance. Musculoskeletal: Arthritic pain hands, shoulders, neck and low back (spinal stenosis). Derm: No current rash. No history of jaundice or diffuse pruritis. Heme: No unusual bleeding and unexplained bruising. Psych: Normal mood. PHYSICAL EXAM: Vitals: Blood pressure 101/66, pulse 76, temperature 36.1 C (97 F), temperature source Temporal, height 163.2 cm (5' 4.25), weight 60.1 kg (132 lb 8 oz), SpO2 96%. Well-appearing and in no acute distress. EYES: Sclerae are anicteric bilaterally. ENT: Oral mucosa is unremarkable. There is no sign of thrush or mucositis. LYMPHATIC: There is no palpable adenopathy. CARDIOVASCULAR: Rhythm is regular. ABDOMEN: The abdomen is nondistended. No splenomegaly or hepatomegaly. No tenderness. Extremities: No swelling or edema. SKIN: No jaundice or rash. No petechiae. NEUROLOGIC: certified personal finance counselor II-XII are grossly intact. No focal motor weakness--able to stand on her tiptoes. Foot dorsiflexion normal bilaterally. Patellar DTR on the left absent. Normal on the right. Achilles reflexes normal bilaterally. 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 Serum protein electrophoresis with unclear findings. has multiple myeloma. -Discussed rationale for immunofixation of the serum as well as 24-hour urine collection for electrophoresis and immunofixation. I doubtful that even if underlying monoclonal gammopathy is causing neuropathy. More likely due to spinal stenosis given her exam findings. Plan: -Protein electrophoresis and immunofixation of serum and on 24-hour urine collection. -Office visit following above. I spent a total of 45 minutes on the date of the service which included preparing to see the patient, [id number] patient care, completing clinical documentation, obtaining and/or reviewing separately obtained history, performing a medically appropriate examination, counseling and educating the patient/family/caregiver, ordering medications, tests, or procedures, communicating with other HCPs (not separately reported), and communicating results to the patient/family/caregiver. Cody Julian DO documented in this encounter [facility] 09-26-2024 Telephone encounter Note Formatting of this note is different fro m the original. Prescription Refill Information The patient has been identified by name and date of : Yes Caregiver verified no other encounters exist for this prescription request: Yes Caregiver confirmed with patient/requestor that no other refills are due, in the near future, with this provider at this time: Yes The last office visit in the department: 08/16/24 Does the patient have a future office visit with this provider/department: Yes Requested Prescriptions Pending Prescriptions Disp Refills gabapentin (NEURONTIN) 300 mg capsule 180 capsule 1 Sig: Take 1 capsule by mouth two times a day for 180 days. Prosper Rodriguez LPN September 26, 2024 8:16 AM [facility] 09-26-2024 Miscellaneous Notes Formatting of this note is different fro m the original. Prescription Refill Information The patient has been identified by name and date of : Yes Caregiver verified no other encounters exist for this prescription request: Yes Caregiver confirmed with patient/requestor that no other refills are due, in the near future, with this provider at this time: Yes The last office visit in the department: 08/16/24 Does the patient have a future office visit with this provider/department: Yes Requested Prescriptions Pending Prescriptions Disp Refills gabapentin (NEURONTIN) 300 mg capsule 180 capsule 1 Sig: Take 1 capsule by mouth two times a day for 180 days. Prosper Rodriguez LPN September 26, 2024 8:16 AM documented in this encounter [facility] 09-22-2024 Telephone encounter Note Formatting of this note might be differe nt from the original. Patient scheduled for nurse visit 09/1224 to receive Prolia injection. Please place order at this time. Susanne West LPN [facility] 09-22-2024 Miscellaneous Notes Formatting of this note might be differe nt from the original. Patient scheduled for nurse visit 09/1224 to receive Prolia injection. Please place order at this time. Susanne West LPN documented in this encounter [facility] 09-19-2024 Telephone encounter Note Formatting of this note might be differe nt from the original. Patient notified with results. Patient verbalizes understanding. Kim Charles LPN [facility] 09-19-2024 Miscellaneous Notes Formatting of this note might be differe nt from the original. Patient notified with results. Patient verbalizes understanding. Kim Chalres LPN Let patient know her bone strength study is stable from 3 years ago and slightly improved. documented in this encounter [facility] 09-19-2024 Telephone encounter Note Formatting of this note might be differe nt from the original. Let patient know her bone strength study is stable from 3 years ago and slightly improved. [facility] 09-19-2024 History of Present illness Narrative Formatting of this note might be differe nt from the original. Radiology Service Progress Note PATIENT NAME: Lupis Brito DATE OF SERVICE: September 19, 2024 TIME: 11:32 AM PATIENT IDENTITY VERIFICATION COMPLETED USING TWO (2) IDENTIFIERS: Name and Date of confirmed by patient verbally. FALL SCREENING: Has the patient had 2 falls in the last year or 1 fall with injury or currently using an Ambulatory Assistive Device (Walker, Cane, Wheelchair, Crutches, etc.)? No PATIENT GENDER DATA: Assigned female at . status: : No status: NO. PATIENT RELEVANT IMPLANT DATA REVIEWED: Not Applicable PATIENT PRESENTS WITH AN IMPLANTABLE OR ATTACHED INSURANCE ASSOCIATE: No RADIOLOGY DEPARTMENT: Bone Density PERIPHERAL IV DATA: Not applicable SIGNED BY: RT Inés(R) September 19, 2024 11:32 AM documented in this encounter [facility] 09-19-2024 Note HNO ID: [id number] Author: VIDA VANESSA RT(Gonzalo) Service: ? Author Type: Technologist Type: Progress Notes Filed: 09/19/2024 11:39 Note Text: Radiology Service Progress Note PATIENT NAME: Lupis Brito DATE OF SERVICE: September 19, 2024 TIME: 11:32 AM PATIENT IDENTITY VERIFICATION COMPLETED USING TWO (2) IDENTIFIERS: Name and Date of confirmed by patient verbally. FALL SCREENING: Has the patient had 2 falls in the last year or 1 fall with injury or currently using an Ambulatory Assistive Device (Walker, Cane, Wheelchair, Crutches, etc.)? No PATIENT GENDER DATA: Assigned female at . status: : No status: NO. PATIENT RELEVANT IMPLANT DATA REVIEWED: Not Applicable PATIENT PRESENTS WITH AN IMPLANTABLE OR ATTACHED INSURANCE ASSOCIATE: No RADIOLOGY DEPARTMENT: Bone Density PERIPHERAL IV DATA: Not applicable SIGNED BY: RT Inés(R) September 19, 2024 11:32 AM [facility] 09-13-2024 Instructions Rody Pablo PA-C - 09/13/2024 9:29 AM EST Laboratory studies Repeat EMG if labs are normal. Follow up as needed documented in this encounter [facility] 09-13-2024 Note HNO ID: [id number] Author: SABA CRUZ LPN Service: ? Author Type: LICENSED NURSE Type: Progress Notes Filed: 09/13/2024 09:52 Note Text: [facility] 09-13-2024 History of Present illness Narrative Formatting of this note might be differe nt from the original. Images from the original note were not included. [facility] Name: Lupis Briot Age: [age] year old Gender: female Primary Care Provider: Tacos Hein MD Consult requested for neuropathy by Tacos Hein. Recommendations will be communicated via shared medical record or US mail. Chief Complaint:New Patient (Peroneal Neuropathy) 09/13/2024 - General Neurology, Rody Pablo PA-C ASSESSMENT ASSESSMENT/PLAN: 1. Neuropathy - ICD9: 355.9, ICD10: G62.9 (primary diagnosis) 2. Peroneal neuropathy, unspecified laterality - ICD9: 355.3, ICD10: G57.30 Patient with a year of slightly worsening paresthesias to the bottom of the feet and toes bilaterally. Started on the left a few months later started on the right. Notes constant [id number]-[id number] and a dull ache to the toes on the bottom which occasionally radiates to the heel but does not go to the top of the foot, ankle or up the leg. Has chronic lumbar issues for which she sees pain management for. Had an EMG done at [facility], but does not show any readings, describes a bilateral peroneal neuropathy, patient states occasionally she crosses her legs but nothing consistent. No surgeries to the lower legs, did have 1 lumbar surgery in the past. History is more suggestive of a possible polyneuropathy, stocking glove, does not really have any deficits in the peroneal distribution on the legs bilaterally. Discussed the close of the lumbar and etiology. Does take B complex and has done so for years, discussed obtaining further laboratory studies, previous B12, TSH were normal. Patient is amenable to this, discussed repeating the EMG and she would like to first complete laboratory studies. No falls, trips, signs or symptoms of cord compression. Notes her discomfort is well-controlled with gabapentin. Patient agreeable to treatment plan of care at this time, questions were answered. Patient to follow-up as needed. Rody Pablo PA-C Encounter Diagnosis ICD-10-CM 1. Neuropathy G62.9 EMG(NEURO/NI) VITAMIN B1 (THIAMINE), WHOLE BLOOD VITAMIN B6/PYRIDOXIN PROTEIN ELECTROPHORESIS SERUM W/INTERP C-REACTIVE PROTEIN SEDIMENTATION RATE, WESTERGREN 2. Peroneal neuropathy, unspecified laterality G57.30 No follow-ups on file. Chart, labs,and relevant images reviewed. HPI: Saw PCP for leg paresthesias, Let patient know her nerve study shows an abnormal conduction study suggestive of a right and left peroneal nerve neuropathy at the fibular head on both sides. Last seen on 08/16/24 Patient fisher been having burning in the toes and bottom of her feet for abut year and has slowly increased. Has not discussed this in the past. Taking the gabapentin twice a day does help reduce this discomfort and control her nightly RSL and improves her ablility to fall asleep. B12, folate and TSH normal. This is a 74 year old female presenting with numbness to the feet. Patient reports about a year ago she began experiencing some numbness starting on the left foot to the toes and bottom of the foot. Few months later she started experiencing similar symptoms to the left foot. Typically the symptoms are constant to the toes but occasionally will radiate to the entire bottom of the foot to the heel. Does not go to the top of the foot at the ankle or higher up to the leg. Started on gabapentin and notes some improvement with this. Also helps with the restless leg symptoms at night as well. No history of surgeries or injuries to the feet or ankles. Does report that she crosses her legs but mostly at the ankles and not at the knees. Has a history of lumbar issues for years, has had 1 spinal stenosis surgery many years ago and follows with Dr. Alves for pain management. Notes that her pain is controlled at this time. No falls recently, occasional weakness in the legs but attributes this more to her lumbar issues. Describes discomfort in the feet as a dull ache with occasional qzwk-mhc-opnpdjb that is worse at nighttime. No symptoms in the hands. Of note she has been on B complex for many years, no history of diabetes or risk factors. Numbness in feet: yes, Numbness in hands: no Burning pain in feet: no Burning pain in hands: no Abnormal temperature sensation in limbs:no Falls: no Balance issues: no Worse at night?: yes, Neuropathy risk factors: Excess B6 intake FH- none Review of Systems ACTIVE PROBLEM LIST Osteoporosis Vitamin D Deficiency Restless Leg Syndrome Lumbar Degenerative Disc Disease Postmenopausal Atrophic Vaginitis Insomnia Inflammatory arthritis Psoriasis of Nail Arthritis of Both Hips Fibromyalgia Spinal Stenosis of Lumbar Region With Radiculopathy Screening for Colon Cancer Medication Management Dyslipidemia Medicare Annual Wellness Visit, Subsequent Living Will in Place Advance Directive Discussed With Patient Mild Intermittent Asthma Without Complication Peroneal Neuropathy PAST MEDICAL HISTORY Diagnosis Date Acute gastritis [...] with radiculopathy 10/09/2016 Vitamin D deficiency 12/12/2009 Medications: Reviewed RESTASIS 0.05 % ophthalmic emulsion Use 1 Drop in both eyes every 12 hours. gabapentin (NEURONTIN) 300 mg capsule Take 1 capsule by mouth two times a day for 180 days. meloxicam (MOBIC) 7.5 mg tablet Take 1 tablet by mouth once daily. montelukast (SINGULAIR) 10 mg tablet Take 1 tablet by mouth daily at bedtime. fluticasone (FLONASE) 50 mcg/actuation nasal spray instill 2 sprays into each nostril once daily denosumab (PROLIA) 60 mg/mL 1 milliliter subcutaneously every 6 months. calcium carbonate (CALCIUM 300 ORAL) Take by mouth once daily. albuterol HFA (VENTOLIN HFA) 90 mcg/actuation inhaler Inhale 2 Puffs as instructed every 4 hours as needed for wheezing/shortness of breath. MELATONIN ORAL Take by mouth as directed. VITAMIN B COMPLEX ORAL Take by mouth. L.ACID/L.CASEI/B.BIF/B.ROBIN/FOS (PROBIOTIC BLEND ORAL) Take by mouth. folic acid 800 mcg ORAL Tab Take one(1) tablet daily. DAILY MULTIVITAMIN TAB Take one(1) tablet daily. ALLERGIES Allergen Reactions Clindamycin Rash Boniva [Ibandronate] GI Upset Increase in GERD Doxycycline Other: See Comments Accelerated heart rate Fosamax [Alendronat* GI Upset Increase heartburn/GI Mold Other: See Comments Nasal/sinus Penicillins Unknown Pollen Extracts Other: See Comments Nasal/sinus Sulfa (Sulfonamide * Unknown FAMILY HISTORY Problem Relation Age of Onset Hypertension Mother Lipids Mother Skin Cancer Mother chemo and radiation Heart Father irregular heart beat. 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 Language was fluent. Followed simple and complex commands. Cranial Nerves: Visual simeon were full tested binocularly to finger counting in all 4 quadrants with no visual extinction. Pupils were equal and both reactive to light. Extraocular movements were full with no diplopia or nystagmus. Facial sensation was normal to light touch in V1 to V3. Facial strength was symmetric. Normal hearing grossly bilaterally. Palatal raise was symmetric. Shoulder shrug was symmetric. Tongue protrusion was symmetric with no fasciculations. Right Left Shoulder Abduction: 5 5 Elbow Extension 5 5 Elbow Flexion 5 5 Wrist Extension 5 5 Finger Extension 5 5 Finger Abduction 5 5 Right Left Hip Flexion 5 5 Knee Extension 5 5 Knee Flexion 5 5 Dorsiflexion 5 5 Plantar Flexion 5 5 Rest tremor: absent Tone: Normal in all four limbs Reflexes: Right Left Brachioradialis 2 2 Biceps 2 2 Patella 2 1 Ankle 2 2 Sensory: Decreased vibration to the great toe on the left more than the right but diminished in both. Normal at the knee. Poor proprioception on Romberg testing bilaterally to the feet. Very minimal decrease in temperature to the top of the foot on the left compared to the right, also with some very mild decrease sensation to light touch from the lateral right lower leg to the medial right lower leg. Normal on the left side. Hands with normal sensory exam. Coordination: Normal finger to nose and heel to david testing bilaterally. Negative romberg. Normal gait. Labs: Lab Results Component Value Date WBC 7.85 08/12/2024 HCT 39.8 08/12/2024 MCV 92.3 08/12/2024 PLT 288 08/12/2024 No results found for: HBA1C Total Cholesterol, Nonfasting Date Value Ref Range Status 08/12/2024 235 (H) <200 mg/dL Final Comment: <200 mg/dL, Desirable 200-239 mg/dL, Borderline high >239 mg/dL, High HDL Cholesterol, Nonfasting Date Value Ref Range Status 08/12/2024 58 >39 mg/dL Final Comment: 40-59 mg/dL, Acceptable >59 mg/dL, High: Negative risk factor for coronary heart disease <40 mg/dL, Low: Positive risk factor for coronary heart disease LDL Cholesterol, Nonfasting Date Value Ref Range Status 08/12/2024 144 (H) <100 mg/dL Final Comment: <100 mg/dL, Optimal 100-129 mg/dL, Near optimal/above optimal 130-159 mg/dL, Borderline high 160-189 mg/dL, High >189 mg/dL, Very high Secondary prevention optimal LDL Cholesterol levels are recommended to be < 70 mg/dL Triglycerides, Nonfasting Date Value Ref Range Status 08/12/2024 166 (H) <150 mg/dL Final Comment: <150 mg/dL, Normal 150-199 mg/dL, Borderline high 200-499 mg/dL, High >499 mg/dL, Very high Lab Results Component Value Date B12 1,711 08/16/2024 B12 1,174 08/15/2021 No components found for: SPEP Radiology: EMG/NCS: Skin Biopsy: This note was dictated using [employer] speech recognition software and may contain some errors that were a result of the program not accurately transcribing what was dictated, despite efforts to make corrections. Note that unless urgent, test and MRI results will be discussed at next follow-up visit. PROMIS (Patient-Reported Outcomes Measurement Information System) is a set of person-centered measures that evaluates and monitors physical, social, and emotional health. It can be used with the general population and with individuals living with chronic conditions. PROMIS 10: PHYSICAL AND MENTAL HEALTH: 08/16/2024 PHQ-9 PHQ-2 Score 0 PHQ-9 Score 0 Medical Decision Making: Medical Decision Making Level: 1 - N/A I spent a total of 45 minutes on the date of the service which included preparing to see the patient, maop-ws-cuyh patient care, completing clinical documentation, obtaining and/or reviewing separately obtained history, performing a medically appropriate examination, counseling and educating the patient/family/caregiver, and ordering medications, tests, or procedures. documented in this encounter [facility] 09-13-2024 Note HNO ID: [id number] Author: RODY PABLO PA-C Service: ? Author Type: Physician Account Services Specialist Type: Progress Notes Filed: 09/13/2024 09:52 Note Text: [facility] Name: Lupis Brito Age: [age] year old Gender: female Primary Care Provider: Tacos Hein MD Consult requested for neuropathy by Tacos Hein. Recommendations will be communicated via shared medical record or US mail. Chief Complaint:New Patient (Peroneal Neuropathy) 09/13/2024 - General Neurology, Rody Pablo PA-C ASSESSMENT ASSESSMENT/PLAN: 1. Neuropathy - ICD9: 355.9, ICD10: G62.9 (primary diagnosis) 2. Peroneal neuropathy, unspecified laterality - ICD9: 355.3, ICD10: G57.30 Patient with a year of slightly worsening paresthesias to the bottom of the feet and toes bilaterally. Started on the left a few months later started on the right. Notes constant ujey-qbg-aimyynt and a dull ache to the toes on the bottom which occasionally radiates to the heel but does not go to the top of the foot, ankle or up the leg. Has chronic lumbar issues for which she sees pain management for. Had an EMG done at [facility], but does not show any readings, describes a bilateral peroneal neuropathy, patient states occasionally she crosses her legs but nothing consistent. No surgeries to the lower legs, did have 1 lumbar surgery in the past. History is more suggestive of a possible polyneuropathy, stocknathalie kolbve, does not really have any deficits in the peroneal distribution on the legs bilaterally. Discussed the close of the lumbar and etiology. Does take B complex and has done so for years, discussed obtaining further laboratory studies, previous B12, TSH were normal. Patient is amenable to this, discussed repeating the EMG and she would like to first complete laboratory studies. No falls, trips, signs or symptoms of cord compression. Notes her discomfort is well-controlled with gabapentin. Patient agreeable to treatment plan of care at this time, questions were answered. Patient to follow-up as needed. Rody Pablo PA-C Encounter Diagnosis ICD-10-CM 1. Neuropathy G62.9 EMG(NEURO/NI) VITAMIN B1 (THIAMINE), WHOLE BLOOD VITAMIN B6/PYRIDOXIN PROTEIN ELECTROPHORESIS SERUM W/INTERP C-REACTIVE PROTEIN SEDIMENTATION RATE, WESTERGREN 2. Peroneal neuropathy, unspecified laterality G57.30 No follow-ups on file. Chart, labs,and relevant images reviewed. HPI: Saw PCP for leg paresthesias, Let patient know her nerve study shows an abnormal conduction study suggestive of a right and left peroneal nerve neuropathy at the fibular head on both sides. Last seen on 08/16/24 Patient fisher been having burning in the toes and bottom of her feet for abut year and has slowly increased. Has not discussed this in the past. Taking the gabapentin twice a day does help reduce this discomfort and control her nightly RSL and improves her ablility to fall asleep. B12, folate and TSH normal. This is a 74 year old female presenting with numbness to the feet. Patient reports about a year ago she began experiencing some numbness starting on the left foot to the toes and bottom of the foot. Few months later she started experiencing similar symptoms to the left foot. Typically the symptoms are constant to the toes but occasionally will radiate to the entire bottom of the foot to the heel. Does not go to the top of the foot at the ankle or higher up to the leg. Started on gabapentin and notes some improvement with this. Also helps with the restless leg symptoms at night as well. No history of surgeries or injuries to the feet or ankles. Does report that she crosses her legs but mostly at the ankles and not at the knees. Has a history of lumbar issues for years, has had 1 spinal stenosis surgery many years ago and follows with Dr. Alves for pain management. Notes that her pain is controlled at this time. No falls recently, occasional weakness in the legs but attributes this more to her lumbar issues. Describes discomfort in the feet as a dull ache with occasional feoo-yxd-uskniyh that is worse at nighttime. No symptoms in the hands. Of note she has been on B complex for many years, no history of diabetes or risk factors. Numbness in feet: yes, Numbness in hands: no Burning pain in feet: no Burning pain in hands: no Abnormal temperature sensation in limbs:no Falls: no Balance issues: no Worse at night?: yes, Neuropathy risk factors: Excess B6 intake FH- none Review of Systems ACTIVE PROBLEM LIST Osteoporosis Vitamin D Deficiency Restless Leg Syndrome Lumbar Degenerative Disc Disease Postmenopausal Atrophic Vaginitis Insomnia Inflammatory arthritis Psoriasis of Nail Arthritis of Both Hips Fibromyalgia Spinal Stenosis of Lumbar Region With Radiculopathy Screening for Colon Cancer Medication Management Dyslipidemia Medicare Annual Wellness Visi (more content not included)... [facility] 09-01-2024 Telephone encounter Note Formatting of this note might be differe nt from the original. Pt called and is notified of providers results and instructions. Pt voices understanding. Pt states she will call back in tomorrow to set up appointment. Kyara Gao RN [facility] 09-01-2024 Miscellaneous Notes Formatting of this note might be differe nt from the original. Pt called and is notified of providers results and instructions. Pt voices understanding. Pt states she will call back in tomorrow to set up appointment. 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 I have placed a referral to see Neuromuscular. Received EMG/NCS report from [facility] ordered by PCP. Prosper Rodriguez LPN Scan on 09/01/2024 2:36 AM by ProviderAnn PA-C: Neurology documented in this encounter [facility] 09-01-2024 Telephone encounter Note Formatting of this note might be differe nt from the original. 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 I have placed a referral to see Neuromuscular. [facility] 09-01-2024 Telephone encounter Note Formatting of this note might be differe nt from the original. Received EMG/NCS report from [facility] ordered by PCP. Prosper Rodriguez LPN Scan on 09/01/2024 2:36 AM by ProviderAnn PA-C: Neurology [facility] 08-22-2024 Telephone encounter Note Formatting of this note might be differe nt from the original. Re-faxed to [facility]. Jeannie oPol MA [facility] 08-22-2024 Miscellaneous Notes Formatting of this note might be differe nt from the original. Re-faxed to [facility]. Jeannie Pool MA Last OV: 08/16/24 Pt is calling to report to pcp nurse that she did not get a call from the hospital to schedule nerve conduction study test. Did not see an order for this in pt's chart. Please review and advise. Leann Leahy LPN documented in this encounter [facility] 08-22-2024 Telephone encounter Note Formatting of this note might be differe nt from the original. Last OV: 08/16/24 Pt is calling to report to pcp nurse that she did not get a call from the hospital to schedule nerve conduction study test. Did not see an order for this in pt's chart. Please review and advise. Leann Leahy LPN [facility] 08-22-2024 Telephone encounter Note Formatting of this note is different fro m the original. Prescription Refill Information The patient has been identified by name and date of : Yes Caregiver verified no other encounters exist for this prescription request: Yes Caregiver confirmed with patient/requestor that no other refills are due, in the near future, with this provider at this time: Yes The last office visit in the department: 07/2024 Does the patient have a future office visit with this provider/department: Yes 01/2025 Requested Prescriptions Pending Prescriptions Disp Refills meloxicam (MOBIC) 7.5 mg tablet 90 tablet 1 Sig: Take 1 tablet by mouth once daily. Jeannie Pool MA August 22, 2024 9:17 AM [facility] 08-22-2024 Miscellaneous Notes Formatting of this note is different fro m the original. Prescription Refill Information The patient has been identified by name and date of : Yes Caregiver verified no other encounters exist for this prescription request: Yes Caregiver confirmed with patient/requestor that no other refills are due, in the near future, with this provider at this time: Yes The last office visit in the department: 07/2024 Does the patient have a future office visit with this provider/department: Yes 01/2025 Requested Prescriptions Pending Prescriptions Disp Refills meloxicam (MOBIC) 7.5 mg tablet 90 tablet 1 Sig: Take 1 tablet by mouth once daily. Jeannie Pool MA August 22, 2024 9:17 AM documented in this encounter [facility] 08-17-2024 Telephone encounter Note Formatting of this note might be differe nt from the original. Pt notified of same. Prosper Rodriguez LPN [facility] 08-17-2024 Miscellaneous Notes Formatting of this note might be differe nt from the original. Pt notified of same. Prosper Rodriguez LPN Let patient know her labs from yesterday were ok. documented in this encounter [facility] 08-17-2024 Telephone encounter Note Formatting of this note might be differe nt from the original. Let patient know her labs from yesterday were ok. [facility] 08-16-2024 Instructions Tacos Hein MD - 08/16/2024 11:26 AM EST Consider getting the RSV vaccine from a local pharmacy. Please bring in copies of your power of regulatory attorney for health care and living will. Please get lab done on or after 02/03/2025 prior to your next visit. Screening schedule The following prevention plan is recommended: Depression Screening Never done Anxiety Screening Never done RSV Vaccine(1 - Risk 60-74 years 1-dose series) Never done Bone Density Screening due on 03/10/2024 Covid-19 Vaccine(2023- season) due on 03/27/2024 Advance Directive Discussion due on 07/27/2024 WHAT YOU CAN DO TO PREVENT FALLS Many falls can be prevented. By making some changes, you can lower your chances of falling. Four things YOU can do to prevent falls for you* and your caregiver 1. Begin a regular exercise program Exercise is one of the most important ways to lower your chances of falling. It makes you stronger and helps you feel better. Exercises that improve balance and coordination (like Vlad Chi) are the most helpful. Lack of exercise leads to weakness and increases your chances of falling. Ask your doctor or health care provider about the best type of exercise program for you. 2. Have your health care provider review your medicines Have your doctor or pharmacist review all the medicines you take, even uqja-eef-bwgbjyt medicines. As you get older, the way medicines work in your body can change. Some medicines, or combinations of medicines, can make you sleepy or dizzy and can cause you to fall. 3. Have your vision checked Have your eyes checked by an eye doctor at least once a year. You may be wearing the wrong glasses or have a condition like glaucoma or cataracts that limits your vision. Poor vision can increase your chances of falling. 4. Make your home safer About half of all falls happen at home. To make your home safer: Remove things you can trip over (like papers, books, clothes, and shoes) from stairs and places where you walk. Remove small throw rugs or use double-sided tape to keep the rugs from slipping. Keep items you use often in cabinets you can reach easily without using a step stool. Have grab bars put in next to your toilet and in the tub or shower. Use non-slip mats in the bathtub and on shower floors. Improve the lighting in your home. As you get older, you need brighter lights to see well. Hang light-weight curtains or shades to reduce glare. Have handrails and lights put in on all staircases. Wear shoes both inside and outside the house. Avoid going barefoot or wearing slippers. For more information, contact: Centers for Disease Control and Prevention www.cdc.gov/injury * This information may not apply if you have certain medical conditions. documented in this encounter [facility] 08-16-2024 History of Present illness Narrative Formatting of this note is different fro m the original. Images from the original note were not included. Lupis Brito is a 74 year old female here for a Medicare wellness visit. Medicare Health Risk Assessment General Health Very good Exercise: Minutes/Day 50 min Exercise: Days/Week 5 days Alcohol: Daily Use 2-4 times a month Alcohol: Drinks/Day 1 or 2 Alcohol: 6 or more drinks Never Feel off balance No Concerns: Teeth/Dentures No Concerns: Sexual function No Troubled by feelings None of the above Frequency: Eating healthy diet Several days ADLs requiring help None of the above Safety precautions in home/vehicle No Smoke, vape, chews tobacco No Difficulty hearing No Difficulty seeing No Current Providers Specialists: I have reviewed specialist-related care of the patient in the medical record. Current care team: Patient Care Team: Tacos Hein MD as PCP - General (Family Medicine) Tess Navarrete APRN.CNP as Audit Officer (Family Medicine) Madison Mariee PA-C as Audit Officer (Family Medicine) Dr. Sage: Pulm Medical/Family history review Reviewed and updated problem list, medical/surgical/family/social history, medications, and allergies. Opioid use review Opioid Medications (last 90 days) No data to display Anxiety/Depression screening PHQ-9 Score: 0 . JOVANY-7 Score: 0 . Recommendation: no further intervention at this time Cognitive screening Score: 5 Cognitive screening reviewed and No further action needed (score 3-5). Functional Observation Was the patient's Timed Up & Go test unsteady or >= 12 seconds? No Advance Care Planning Surrogate decision maker and/or advance care plan documented Measurements BP 112/78 Pulse 68 Resp 16 Ht 163.2 cm (5' 4.25) Wt 59 kg (130 lb) BMI 22.14 kg/m Vision Screening: Follows with optometry/ophthalmology Assessment/Plan Medicare annual wellness visit, subsequent (Z00.00) - Counseled on healthy diet and regular exercise - Fall avoidance information provided - Personalized prevention plan provided See below Chief Complaint Patient presents with: Medicare Wellness Exam HPI Lupis Brito is a 74 year old female who presents here today for Chronic Medical Conditions. and Medicare Annual Visit. Patient with hx of asthma, HLP, inflammatory arthritis, RLS, insomnia, fibro, osteoporosis, chronic back pains and those as reviewed below. Patient sees Dr. Cruz - Pulmonary last visit 06/2024 Patient fisher been having burning in the toes and bottom of her feet for abut year and has slowly increased. Has not discussed this in the past. Taking the gabapentin twice a day does help reduce this discomfort and control her nightly RSL and improves her ablility to fall asleep. Past medical history, appointments, medications, allergies reviewed. [...] irregular heart beat. Asthma No Family History Coronary Artery Disease No Family History Patient Allergies ALLERGIES Allergen Reactions Clindamycin Rash Boniva [Ibandronate] GI Upset Increase in GERD Doxycycline Other: See Comments Accelerated heart rate Fosamax [Alendronat* GI Upset Increase heartburn/GI Mold Other: See Comments Nasal/sinus Penicillins Unknown Pollen Extracts Other: See Comments Nasal/sinus Sulfa (Sulfonamide * Unknown Current Medications Current Outpatient Medications on File Prior to Visit Medication Sig beclomethasone (QVAR REDIHALER) 40 mcg/actuation inhaler Inhale 2 Puffs as instructed two times a day. gabapentin (NEURONTIN) 300 mg capsule Take 1 capsule by mouth two times a day for 180 days. meloxicam (MOBIC) 7.5 mg tablet Take 1 tablet by mouth once daily. fluticasone furoate (ARNUITY ELLIPTA) 100 mcg/actuation inhaler Inhale 1 Puff as instructed once daily. montelukast (SINGULAIR) 10 mg tablet Take 1 tablet by mouth daily at bedtime. fluticasone (FLONASE) 50 mcg/actuation nasal spray instill 2 sprays into each nostril once daily denosumab (PROLIA) 60 mg/mL 1 milliliter subcutaneously every 6 months. calcium carbonate (CALCIUM 300 ORAL) Take by mouth once daily. albuterol HFA (VENTOLIN HFA) 90 mcg/actuation inhaler Inhale 2 Puffs as instructed every 4 hours as needed for wheezing/shortness of breath. MELATONIN ORAL Take by mouth as directed. VITAMIN B COMPLEX ORAL Take by mouth. L.ACID/L.CASEI/B.BIF/B.ROBIN/FOS (PROBIOTIC BLEND ORAL) Take by mouth. folic acid 800 mcg ORAL Tab Take one(1) tablet daily. DAILY MULTIVITAMIN TAB Take one(1) tablet daily. No current facility-administered medications on file prior to visit. Social History Social History Tobacco Use Smoking status: Never Smokeless tobacco: Never Vaping Use Vaping status: Never Used Substance Use Topics Alcohol use: Yes Comment: occasionally Drug use: No Review of Symptoms REVIEW OF SYSTEMS GENERAL: No significant weight loss, malaise or fevers HEENT: Negative for frequent or significant headaches, No changes in hearing or vision, no nose bleeds or other nasal problems NECK: Negative for lumps, goiter, pain and significant neck swelling RESPIRATORY: Negative for cough, hemoptysis. No increased wheezing, COPD, dyspnea or shortness of breath CARDIOVASCULAR: Negative for chest pain, leg swelling, hypertension, CHF or palpitations GI: No nausea, vomiting, or diarrhea, No heartburn or reflux symptoms, and no blood. : No history of dysuria, frequency or blood MUSCULOSKELETAL: Negative for joint pain or swelling, back pain or muscle pain. See HPI SKIN: Negative for lesions, rash, and itching PSYCH: Negative for sleep disturbance, mood disorder and recent psychosocial stressors HEMATOLOGY/LYMPHOLOGY: Negative for prolonged bleeding, bruising easily or swollen nodes ENDOCRINE: Negative for cold or heat intolerance, polyuria, polydipsia and goiter NEURO: No history of headaches, syncope, paralysis, seizures or tremors EXAM: BP 112/78 Pulse 68 Resp 16 Ht 163.2 cm (5' 4.25) Wt 59 kg (130 lb) BMI 22.14 kg/m Last 5 Encounter Wt Readings: Date: Wt: 08/16/2024 59 kg (130 lb) 06/30/2024 59 kg (130 lb) 02/12/2024 59.4 kg (131 lb) 12/01/2023 59.9 kg (132 lb) 10/13/2023 60.8 kg (134 lb 0.6 oz) General Appearance: Well appearing, alert, in no acute distress, well-hydrated, well nourished.. Skin: Skin color, texture, turgor normal, no suspicious rashes or lesions. Head: Normocephalic, no masses, lesions, tenderness or abnormalities. Eyes: Anicteric sclera. Pupils are equally round and reactive to light. Extraocular movements are intact. . Ears: External ears, TM's normal, canals clear. Nose/Sinuses: Nares normal, septum midline, mucosa normal, no drainage or sinus tenderness. Oropharynx: Lips, mucosa, and tongue normal, teeth and gums normal, oropharynx normal. Neck: Supple, no adenopathy; thyroid symmetric, normal size, no bruits. Lungs: Lungs clear to auscultation. No wheezing, rhonchi, rales.. Heart: RRR without murmur, gallop, or rubs. No ectopy. Abdomen: Normal abdominal exam, Abdomen soft, non-tender. Bowel sounds normal. No masses, organomegaly. Extremities: No deformities, edema, skin discoloration, clubbing or cyanosis. Good capillary refill. . Musculoskeletal: No joint swelling, deformity, or tenderness. Peripheral Pulses: Normal. Neurologic: Gait normal. Reflexes normal and symmetric. Sensation to light touch and crainal nerves 2-12 intact.. Health Maintenance List Depression Screening Never done Anxiety Screening Never done RSV Vaccine(1 - Risk 60-74 years 1-dose series) Never done Bone Density Screening due on 03/10/2024 Covid-19 Vaccine( - 2023- season) due on 03/27/2024 Advance Directive Discussion due on 07/27/2024 Annual PCP Team Chronic Disease Visit due on 02/11/2025 Diabetes Screening due on 08/12/2027 DTaP,Tdap,Td Vaccine(2 - Td or Tdap) due on 02/09/2029 Lipid Screening due on 08/12/2029 Spirometry Completed Influenza Vaccine Completed Shingrix Vaccine Completed Pneumococcal Vaccine: 50+ Completed Mammogram Screening Discontinued Colorectal Cancer Screening Discontinued Hepatitis C Screening Discontinued Data reviewed Latest Ref Rng 02/12/2024 08/12/2024 WBC 3.70 - 11.00 k/uL 7.85 RBC 3.90 - 5.20 m/uL 4.31 Hemoglobin 11.5 - 15.5 g/dL 12.7 Hematocrit 36.0 - 46.0 % 39.8 MCV 80.0 - 100.0 fL 92.3 MCH 26.0 - 34.0 pg 29.5 MCHC 30.5 - 36.0 g/dL 31.9 RDW-CV 11.5 - 15.0 % 13.0 Platelet Count 150 - 400 k/uL 288 MPV 9.0 - 12.7 fL 9.6 Neut% % 58.0 Abs Neut (ANC) 1.45 - 7.50 k/uL 4.56 Lymph% % 27.0 Abs Lymph 1.00 - 4.00 k/uL 2.12 [place]% % 9.7 Abs [place] <0.87 k/uL 0.76 Eosin% % 3.6 Abs Eosin <0.46 k/uL 0.28 Baso% % 1.3 Abs Baso <0.11 k/uL 0.10 Immature Gran % % 0.4 IMMATURE GRANS (ABS) <0.10 k/uL 0.03 NRBC /100 WBC 0.0 Absolute nRBC <0.01 k/uL <0.01 DTYPE Auto Color Yellow Dark Yellow ! Clarity Clear Clear Glucose, Urine Negative Negative Bilirubin, Urine Negative Negative Ketones, Urine Negative Negative Specific [place], Ur 1.005 - 1.030 1.025 Hemoglobin/Blood,Ur Negative Negative pH, Urine <8.5 6.5 Protein, Urine Negative Trace ! Urobilinogen 0.2-1.0 EU/dL 0.2 EU/dL Nitrites Negative Negative Leukest Negative Negative WBC, Urine 0-5 /HPF 0-5 /HPF RBC, Urine 0-2 /HPF 0-2 /HPF Bacteria Negative /HPF Negative Epithelial Cells /HPF None Seen Hyaline Cast 0 /LPF 1-3 /LPF ! Protein, Total 6.3 - 8.0 g/dL 7.8 8.0 Albumin 3.9 - 4.9 g/dL 4.7 4.3 Calcium 8.5 - 10.2 mg/dL 9.7 9.8 Bilirubin, Total 0.2 - 1.3 mg/dL 0.6 0.4 Alkaline Phosphatase 34 - 123 U/L 47 62 AST 13 - 35 U/L 26 25 ALT 7 - 38 U/L 16 13 Glucose 74 - 99 mg/dL 97 76 BUN 7 - 21 mg/dL 20 22 (H) Creatinine 0.58 - 0.96 mg/dL 0.70 0.74 Sodium 136 - 144 mmol/L 138 140 Potassium 3.7 - 5.1 mmol/L 4.0 4.3 Chloride 98 - 107 mmol/L 101 100 CO2 22 - 30 mmol/L 24 27 Anion Gap 8 - 15 mmol/L 13 13 eGFR >=60 mL/min/1.73m 92 86 Total Cholesterol, Nonfasting <200 mg/dL 264 (H) 235 (H) Triglycerides, Nonfasting <150 mg/dL 143 166 (H) HDL Cholesterol, Nonfasting >39 mg/dL 83 58 LDL Cholesterol, Nonfasting <100 mg/dL 152 (H) 144 (H) Non HDL Cholesterol, Nonfasting <130 mg/dL 181 (H) 177 (H) VLDL Cholesterol, Nonfasting <30 mg/dL 29 33 (H) Total Chol/HDL Ratio, Nonfasting <5.10 mg/dL 3.18 4.05 LDL/HDL Ratio, Nonfasting <2.54 mg/dL 1.83 2.48 TSH 0.270 - 4.200 mIU/L 1.440 Free T3 2.3 - 4.1 pg/mL 2.9 Free T4 0.9 - 1.7 ng/dL 1.2 Vitamin D 25 Hydroxy 31.0 - 80.0 ng/mL 37.6 A/P ASSESSMENT/PLAN: 1. Medicare annual wellness visit, subsequent - ICD9: V70.0, ICD10: Z00.00 (primary diagnosis) - Counseled on healthy diet and regular exercise - Follow up for annual exam in one year 2. Dyslipidemia - ICD9: 272.4, ICD10: E78.5 - Improving control - Counseled on healthy diet and regular exercise 3. Fibromyalgia - ICD9: 729.1, ICD10: M79.7 - clinically stable no changes. 4. Insomnia, unspecified type - ICD9: 780.52, ICD10: G47.00 - stable with use of the gabapentin and melatonin. 5. Restless leg syndrome - ICD9: 333.94, ICD10: G25.81 - cont gabapentin at current dose. 6. Vitamin D deficiency - ICD9: 268.9, ICD10: E55.9 - controlled with replacement 7. Advance directive discussed with patient - ICD9: V65.49, ICD10: Z71.89 - patient to bring in copies. 8. Mild intermittent asthma without complication - ICD9: 493.90, ICD10: J45.20 - Mild intermittent asthma stable - Continue current medications - Avoidance of triggers recommended - being managed pr Pulm 9. Osteoporosis, unspecified osteoporosis type, unspecified pathological fracture presence - ICD9: 733.00, ICD10: M81.0 check - DXA-AXIAL SKELETON - DXA TRABECULAR BONE SCORE (TBS) 10. Numbness and tingling of both feet - ICD9: 782.0, ICD10: R20.0, R20.2 Check - VITAMIN B12 - THYROID STIMULATING HORMONE - FOLATE, SERUM - T4 FREE/FREE THYROXINE - NCS/EMG at [facility] 11. Encounter for screening examination for other mental health and behavioral disorders - ICD9: V79.8, ICD10: Z13.39 - ANXIETY SCREENING 12. Screening for depression - ICD9: V79.0, ICD10: Z13.31 - DEPRESSION SCREENING F/u in 6 months routine check Lipids. I spent a total of 40 minutes on the date of the service which included preparing to see the patient, [id number] patient care, completing clinical documentation, performing a medically appropriate examination, counseling and educating the patient/family/caregiver and ordering medications, tests, or procedures. Tacos Hein MD documented in this encounter [facility] 08-16-2024 Note HNO ID: [id number] Author: TACOS HEIN MD Service: ? Author Type: Physician Type: Progress Notes Filed: 08/16/2024 20:14 Note Text: Lupis Brito is a 74 year old female here for a Medicare wellness visit. Medicare Health Risk Assessment General Health Very good Exercise: Minutes/Day 50 min Exercise: Days/Week 5 days Alcohol: Daily Use 2-4 times a month Alcohol: Drinks/Day 1 or 2 Alcohol: 6 or more drinks Never Feel off balance No Concerns: Teeth/Dentures No Concerns: Sexual function No Troubled by feelings None of the above Frequency: Eating healthy diet Several days ADLs requiring help None of the above Safety precautions in home/vehicle No Smoke, vape, chews tobacco No Difficulty hearing No Difficulty seeing No Current Providers Specialists: I have reviewed specialist-related care of the patient in the medical record. Current care team: Patient Care Team: Tacos Hein MD as PCP - General (Family Medicine) Tess Navarrete APRN.CNP as Audit Officer (Family Medicine) Madison Mariee PA-C as Audit Officer (Family Medicine) Dr. Sage: Pulm Medical/Family history review Reviewed and updated problem list, medical/surgical/family/social history, medications, and allergies. Opioid use review Opioid Medications (last 90 days) No data to display Anxiety/Depression screening PHQ-9 Score: 0 . JOVANY-7 Score: 0 . Recommendation: no further intervention at this time Cognitive screening Score: 5 Cognitive screening reviewed and No further action needed (score 3-5). Functional Observation Was the patient's Timed Up AND Go test unsteady or >= 12 seconds? No Advance Care Planning Surrogate decision maker and/or advance care plan documented Measurements BP 112/78 Pulse 68 Resp 16 Ht 163.2 cm (5' 4.25) Wt 59 kg (130 lb) BMI 22.14 kg/m? Vision Screening: Follows with optometry/ophthalmology Assessment/Plan Medicare annual wellness visit, subsequent (Z00.00) - Counseled on healthy diet and regular exercise - Fall avoidance information provided - Personalized prevention plan provided See below Chief Complaint Patient presents with: Medicare Wellness Exam HPI Lupis Brito is a 74 year old female who presents here today for Chronic Medical Conditions. and Medicare Annual Visit. Patient with hx of asthma, HLP, inflammatory arthritis, RLS, insomnia, fibro, osteoporosis, chronic back pains and those as reviewed below. Patient sees Dr. Cruz - Pulmonary last visit 06/2024 Patient fisher been having burning in the toes and bottom of her feet for abut year and has slowly increased. Has not discussed this in the past. Taking the gabapentin twice a day does help reduce this discomfort and control her nightly RSL and improves her ablility to fall asleep. Past medical history, appointments, medications, allergies reviewed. [...] irregular heart beat. Asthma No Family History Coronary Artery Disease No Family History Patient Allergies ALLERGIES Allergen Reactions Clindamycin Rash Boniva [Ibandronate] GI Upset Increase in GERD Doxycycline Other: See Comments Accelerated heart rate Fosamax [Alendronat* GI Upset Increase heartburn/GI Mold Other: See Comments Nasal/sinus Penicillins Unknown Pollen Extracts Other: See Comments Nasal/sinus Sulfa (Sulfonamide * Unknown Current Medications Current Outpatient Medications on File Prior to Visit (more content not included)... [facility] 06-30-2024 History of Present illness Narrative Formatting of this note is different fro m the original. Images from the original note were not included. . [facility] [place] Note Patient name: Lupis Brito PCP: Tacos Hein MD CC: Asthma HPI: Lupis Brito 74 year old female never smoker with PMH significant for asthma (positive EJREMIAH), allergic rhinitis, fibromyalgia, osteoporosis presenting for follow-up. Current therapy with Arnuity and as needed albuterol. From a respiratory standpoint she has been doing well. No cough, wheezing, chest pain or shortness of breath. However, she has had significant dysphonia unable to sing in her [employer] choir. She had previously been on Qvar with good control of her symptoms and no significant vocal issues but insurance deemed change. No thrush or sore throat. She has not been ill with any upper respiratory infections or ED visits. Rare need for her albuterol inhaler. DATA: ASTHMA CONTROL TEST Date: 06/30/2024 In the last 4 weeks, how much of the time did your asthma keep you from getting as much done at work or home that you wanted to do? None of the time (5) In the last 4 weeks, how often have you had shortness of breath? Not at all (5) In the last 4 weeks, how often did your asthma symptoms (wheezing, coughing, shortness of breath, chest tightness or pain) wake you up at night or earlier than usual? Not at all (5) In the last 4 weeks, how often have you used your rescue inhaler or nebulizer medication (such as Albuterol, Proventil, Ventolin, Maxair, Xoponex, or Primatene Mist)? Once a week or less (4) In the last 4 weeks, how would you rate your asthma control? Completely controlled (5) Total: more than 20 PAST MEDICAL HISTORY Diagnosis Date Acute gastritis [...] Boniva [Ibandronate] GI Upset Increase in GERD Doxycycline Other: See Comments Accelerated heart rate Fosamax [Alendronat* GI Upset Increase heartburn/GI Mold Other: See Comments Nasal/sinus Penicillins Unknown Pollen Extracts Other: See Comments Nasal/sinus Sulfa (Sulfonamide * Unknown beclomethasone (QVAR REDIHALER) 40 mcg/actuation inhaler Inhale 2 Puffs as instructed two times a day. gabapentin (NEURONTIN) 300 mg capsule Take 1 capsule by mouth two times a day for 180 days. meloxicam (MOBIC) 7.5 mg tablet Take 1 tablet by mouth once daily. fluticasone furoate (ARNUITY ELLIPTA) 100 mcg/actuation inhaler Inhale 1 Puff as instructed once daily. montelukast (SINGULAIR) 10 mg tablet Take 1 tablet by mouth daily at bedtime. fluticasone (FLONASE) 50 mcg/actuation nasal spray instill 2 sprays into each nostril once daily denosumab (PROLIA) 60 mg/mL 1 milliliter subcutaneously every 6 months. calcium carbonate (CALCIUM 300 ORAL) Take by mouth once daily. albuterol HFA (VENTOLIN HFA) 90 mcg/actuation inhaler Inhale 2 Puffs as instructed every 4 hours as needed for wheezing/shortness of breath. MELATONIN ORAL Take by mouth as directed. VITAMIN B COMPLEX ORAL Take by mouth. L.ACID/L.CASEI/B.BIF/B.ROBIN/FOS (PROBIOTIC BLEND ORAL) Take by mouth. folic acid 800 mcg ORAL Tab Take one(1) tablet daily. DAILY MULTIVITAMIN TAB Take one(1) tablet daily. Social History Tobacco Use Smoking status: Never Smokeless tobacco: Never Vaping Use Vaping status: Never Used Substance Use Topics Alcohol use: Yes Comment: occasionally Drug use: No PMH, Social history, family history and surgical history reviewed and updated in EMR REVIEW OF SYSTEMS: CONSTITUTIONAL: No fevers, chills, nightsweats, unintended weight loss HEENT: Denies nasal congestion/sinus symptoms, current allergy problems. EYES: No diplopia or blurry vision. CARDIOVASCULAR: No chest pain, dyspnea, palpitations, edema. PULM: See HPI INTEGUMENTARY: No new skin changes PHYSICAL EXAMINATION: Pulse 50 Resp 16 Wt 130 lb (59.0kg) SpO2 98% General Appearance: Age-appropriate female, NAD. Head: Normocephalic, no masses, lesions, tenderness or abnormalities. Oropharynx: No oral lesions or thrush. Neck: No JVD, no masses, no adenopathy. Lungs: Not labored, normal percussion, no wheezes or crackles. Heart: Regular rate and rhythm, no murmurs or gallops. Extremities: No edema or clubbing. Assessment/Plan: 1. Mild intermittent asthma, uncomplicated -Asthma well-controlled with inhaled corticosteroid however she is having significant side effect with hoarse voice -Will see if we can get a formulary exception or prior authorization for Qvar 2. Hoarseness of voice -No GERD symptoms or thrush -See #1 Alona Cruz MD [facility] [place] documented in this encounter [facility] 06-30-2024 Note HNO ID: [id number] Author: ALONA CRUZ MD Service: ? Author Type: Physician Type: Progress Notes Filed: 06/30/2024 12:43 Note Text: . [facility] [place] Note Patient name: Lupis Brito PCP: Tacos Hein MD CC: Asthma HPI: Lupis Brito 74 year old female never smoker with PMH significant for asthma (positive JEREMIAH), allergic rhinitis, fibromyalgia, osteoporosis presenting for follow-up. Current therapy with Arnuity and as needed albuterol. From a respiratory standpoint she has been doing well. No cough, wheezing, chest pain or shortness of breath. However, she has had significant dysphonia unable to sing in her [employer] choir. She had previously been on Qvar with good control of her symptoms and no significant vocal issues but insurance deemed change. No thrush or sore throat. She has not been ill with any upper respiratory infections or ED visits. Rare need for her albuterol inhaler. DATA: ASTHMA CONTROL TEST Date: 06/30/2024 In the last 4 weeks, how much of the time did your asthma keep you from getting as much done at work or home that you wanted to do? None of the time (5) In the last 4 weeks, how often have you had shortness of breath? Not at all (5) In the last 4 weeks, how often did your asthma symptoms (wheezing, coughing, shortness of breath, chest tightness or pain) wake you up at night or earlier than usual? Not at all (5) In the last 4 weeks, how often have you used your rescue inhaler or nebulizer medication (such as Albuterol, Proventil, Ventolin, Maxair, Xoponex, or Primatene Mist)? Once a week or less (4) In the last 4 weeks, how would you rate your asthma control? Completely controlled (5) Total: more than 20 PAST MEDICAL HISTORY Diagnosis Date Acute gastritis [...] Boniva [Ibandronate] GI Upset Increase in GERD Doxycycline Other: See Comments Accelerated heart rate Fosamax [Alendronat* GI Upset Increase heartburn/GI Mold Other: See Comments Nasal/sinus Penicillins Unknown Pollen Extracts Other: See Comments Nasal/sinus Sulfa (Sulfonamide * Unknown beclomethasone (QVAR REDIHALER) 40 mcg/actuation inhaler Inhale 2 Puffs as instructed two times a day. gabapentin (NEURONTIN) 300 mg capsule Take 1 capsule by mouth two times a day for 180 days. meloxicam (MOBIC) 7.5 mg tablet Take 1 tablet by mouth once daily. fluticasone furoate (ARNUITY ELLIPTA) 100 mcg/actuation inhaler Inhale 1 Puff as instructed once daily. montelukast (SINGULAIR) 10 mg tablet Take 1 tablet by mouth daily at bedtime. fluticasone (FLONASE) 50 mcg/actuation nasal spray instill 2 sprays into each nostril once daily denosumab (PROLIA) 60 mg/mL 1 milliliter subcutaneously every 6 months. calcium carbonate (CALCIUM 300 ORAL) Take by mouth once daily. albuterol HFA (VENTOLIN HFA) 90 mcg/actuation inhaler Inhale 2 Puffs as instructed every 4 hours as needed for wheezing/shortness of breath. MELATONIN ORAL Take by mouth as directed. VITAMIN B COMPLEX ORAL Take by mouth. L.ACID/L.CASEI/B.BIF/B.ROBIN/FOS (PROBIOTIC BLEND ORAL) Take by mouth. folic acid 800 mcg ORAL Tab Take one(1) tablet daily. DAILY MULTIVITAMIN TAB Take one(1) tablet daily. Social History Tobacco Use Smoking status: Never Smokeless tobacco: Never Vaping Use Vaping status: Never Used Substance Use Topics Alcohol use: Yes Comment: occasionally Drug use: No PMH, Social history, family history and surgical history reviewed and updated in EMR REVIEW OF SYSTEMS: CONSTITUTIONAL: No fevers, chills, nightsweats, unintended weight loss HEENT: Denies nasal congestion/sinus symptoms, current allergy problems. EYES: No diplopia or blurry vision. CARDIOVASCULAR: No chest pain, dyspnea, palpitations, edema. PULM: See HPI INTEGUMENTARY: No new skin changes PHYSICAL EXAMINATION: Pulse 50 Resp 16 Wt 130 lb (59.0kg) SpO2 98% General Appearance: Age-appropriate female, NAD. Head: Normocephalic, no masses, lesions, tendernes (more content not included)... [facility] 06-28-2024 Telephone encounter Note Formatting of this note is different fro m the original. Prescription Refill Information The patient has been identified by name and date of : Yes Caregiver verified no other encounters exist for this prescription request: Yes Caregiver confirmed with patient/requestor that no other refills are due, in the near future, with this provider at this time: Yes The last office visit in the department: 04/06/2024 Does the patient have a future office visit with this provider/department: Yes Requested Prescriptions Pending Prescriptions Disp Refills meloxicam (MOBIC) 7.5 mg tablet 90 tablet 0 Sig: Take 1 tablet by mouth once daily. Maryana Godinez LPN June 28, 2024 9:28 AM [facility] 06-28-2024 Miscellaneous Notes Formatting of this note is different fro m the original. Prescription Refill Information The patient has been identified by name and date of : Yes Caregiver verified no other encounters exist for this prescription request: Yes Caregiver confirmed with patient/requestor that no other refills are due, in the near future, with this provider at this time: Yes The last office visit in the department: 04/06/2024 Does the patient have a future office visit with this provider/department: Yes Requested Prescriptions Pending Prescriptions Disp Refills meloxicam (MOBIC) 7.5 mg tablet 90 tablet 0 Sig: Take 1 tablet by mouth once daily. Maryana Godinez LPN June 28, 2024 9:28 AM documented in this encounter [facility] 06-28-2024 Telephone encounter Note Formatting of this note is different fro m the original. Prescription Refill Information The patient has been identified by name and date of : Yes Caregiver verified no other encounters exist for this prescription request: Yes Caregiver confirmed with patient/requestor that no other refills are due, in the near future, with this provider at this time: Yes The last office visit in the department: 04/06/2024 Does the patient have a future office visit with this provider/department: Yes Requested Prescriptions Pending Prescriptions Disp Refills gabapentin (NEURONTIN) 300 mg capsule 180 capsule 1 Sig: Take 1 capsule by mouth two times a day for 180 days. Maryana Godinez LPN June 28, 2024 9:27 AM [facility] 06-28-2024 Miscellaneous Notes Formatting of this note is different fro m the original. Prescription Refill Information The patient has been identified by name and date of : Yes Caregiver verified no other encounters exist for this prescription request: Yes Caregiver confirmed with patient/requestor that no other refills are due, in the near future, with this provider at this time: Yes The last office visit in the department: 04/06/2024 Does the patient have a future office visit with this provider/department: Yes Requested Prescriptions Pending Prescriptions Disp Refills gabapentin (NEURONTIN) 300 mg capsule 180 capsule 1 Sig: Take 1 capsule by mouth two times a day for 180 days. Maryana Godinez LPN June 28, 2024 9:27 AM documented in this encounter [facility] 06-06-2024 Telephone encounter Note Formatting of this note is different fro m the original. [facility] [place] 12/01/23 Patient phones requesting refills as follows: Requested Prescriptions Pending Prescriptions Disp Refills fluticasone furoate (ARNUITY ELLIPTA) 100 mcg/actuation inhaler 30 Each 5 Sig: Inhale 1 Puff as instructed once daily. Please review and advise. Cassia Santos LPN [facility] 06-06-2024 Miscellaneous Notes Formatting of this note is different fro m the original. [facility] [place] 12/01/23 Patient phones requesting refills as follows: Requested Prescriptions Pending Prescriptions Disp Refills fluticasone furoate (ARNUITY ELLIPTA) 100 mcg/actuation inhaler 30 Each 5 Sig: Inhale 1 Puff as instructed once daily. Please review and advise. Cassia Santos LPN documented in this encounter [facility] 05-11-2024 Telephone encounter Note Formatting of this note is different fro m the original. Prescription Refill Information The patient has been identified by name and date of : Yes Caregiver verified no other encounters exist for this prescription request: Yes Caregiver confirmed with patient/requestor that no other refills are due, in the near future, with this provider at this time: Yes The last office visit in the department: 02/12/24 Does the patient have a future office visit with this provider/department: Yes Requested Prescriptions Pending Prescriptions Disp Refills montelukast (SINGULAIR) 10 mg tablet 90 tablet 1 Sig: Take 1 tablet by mouth daily at bedtime. meloxicam (MOBIC) 7.5 mg tablet 90 tablet 0 Sig: Take 1 tablet by mouth once daily. Prosper Rodriguez LPN May 11, 2024 12:01 PM [facility] 05-11-2024 Miscellaneous Notes Formatting of this note is different fro m the original. Prescription Refill Information The patient has been identified by name and date of : Yes Caregiver verified no other encounters exist for this prescription request: Yes Caregiver confirmed with patient/requestor that no other refills are due, in the near future, with this provider at this time: Yes The last office visit in the department: 02/12/24 Does the patient have a future office visit with this provider/department: Yes Requested Prescriptions Pending Prescriptions Disp Refills montelukast (SINGULAIR) 10 mg tablet 90 tablet 1 Sig: Take 1 tablet by mouth daily at bedtime. meloxicam (MOBIC) 7.5 mg tablet 90 tablet 0 Sig: Take 1 tablet by mouth once daily. Prosper Rodriguez LPN May 11, 2024 12:01 PM documented in this encounter [facility] 04-06-2024 Note HNO ID: [id number] Author: SUSANNE WEST LPN Service: ? Author Type: LICENSED NURSE Type: Progress Notes Filed: 04/06/2024 09:20 Note Text: Patient presents for Prolia injection. Denies any problems at this time. Brought own medication. Patient instructed on any SE of medication, verbalized understanding and agreed to proceed with treatment. Tolerated injection well. Susanne West LPN [facility] 04-06-2024 History of Present illness Narrative Formatting of this note might be differe nt from the original. Patient presents for Prolia injection. Denies any problems at this time. Brought own medication. Patient instructed on any SE of medication, verbalized understanding and agreed to proceed with treatment. Tolerated injection well. Susanne West LPN documented in this encounter [facility] 04-04-2024 Telephone encounter Note Formatting of this note is different fro m the original. Patient phones requesting refills as follows: ASIM: 12/01/23 Requested Prescriptions Pending Prescriptions Disp Refills fluticasone furoate (ARNUITY ELLIPTA) 100 mcg/actuation inhaler 30 Each 5 Sig: Inhale 1 Puff as instructed once daily. Please review and advise. Cassia Santos LPN [facility] 04-04-2024 Miscellaneous Notes Formatting of this note is different fro m the original. Patient phones requesting refills as follows: ASIM: 12/01/23 Requested Prescriptions Pending Prescriptions Disp Refills fluticasone furoate (ARNUITY ELLIPTA) 100 mcg/actuation inhaler 30 Each 5 Sig: Inhale 1 Puff as instructed once daily. Please review and advise. Cassia Santos LPN documented in this encounter [facility] 04-04-2024 Telephone encounter Note Formatting of this note might be differe nt from the original. Prescription was sent to pharmacy on 02/08/2024 180 tablets with 1 additional refill. Jeannie Pool MA [facility] 04-04-2024 Miscellaneous Notes Formatting of this note might be differe nt from the original. Prescription was sent to pharmacy on 02/08/2024 180 tablets with 1 additional refill. Jeannie Pool MA documented in this encounter [facility] 03-09-2024 Telephone encounter Note Formatting of this note is different fro m the original. Prescription Refill Information The patient has been identified by name and date of : Yes Caregiver verified no other encounters exist for this prescription request: Yes Caregiver confirmed with patient/requestor that no other refills are due, in the near future, with this provider at this time: Yes The last office visit in the department: 02/12/24 Does the patient have a future office visit with this provider/department: Yes, 08/16/24 Requested Prescriptions Pending Prescriptions Disp Refills meloxicam (MOBIC) 7.5 mg tablet 90 tablet 0 Sig: Take 1 tablet by mouth once daily. *Last rx written 03/07/24 #90 with 0 refills. Pt is not due for refill. MC message to pt notifying of the same. Bryan Faustin LPN March 09, 2024 10:55 AM [facility] 03-09-2024 Miscellaneous Notes Formatting of this note is different fro m the original. Prescription Refill Information The patient has been identified by name and date of : Yes Caregiver verified no other encounters exist for this prescription request: Yes Caregiver confirmed with patient/requestor that no other refills are due, in the near future, with this provider at this time: Yes The last office visit in the department: 02/12/24 Does the patient have a future office visit with this provider/department: Yes, 08/16/24 Requested Prescriptions Pending Prescriptions Disp Refills meloxicam (MOBIC) 7.5 mg tablet 90 tablet 0 Sig: Take 1 tablet by mouth once daily. *Last rx written 03/07/24 #90 with 0 refills. Pt is not due for refill. MC message to pt notifying of the same. Bryan Faustin LPN March 09, 2024 10:55 AM documented in this encounter [facility] 03-07-2024 Telephone encounter Note Formatting of this note is different fro m the original. Prescription Refill Information The patient has been identified by name and date of : Yes Caregiver verified no other encounters exist for this prescription request: Yes Caregiver confirmed with patient/requestor that no other refills are due, in the near future, with this provider at this time: Yes The last office visit in the department: 01/2024 Does the patient have a future office visit with this provider/department: Yes 07/2024 Last refill: 01/2024 Requested Prescriptions Pending Prescriptions Disp Refills meloxicam (MOBIC) 7.5 mg tablet 90 tablet 0 Sig: Take 1 tablet by mouth once daily. Jeannie Pool MA March 07, 2024 9:51 AM [facility] 03-07-2024 Miscellaneous Notes Formatting of this note is different fro m the original. Prescription Refill Information The patient has been identified by name and date of : Yes Caregiver verified no other encounters exist for this prescription request: Yes Caregiver confirmed with patient/requestor that no other refills are due, in the near future, with this provider at this time: Yes The last office visit in the department: 01/2024 Does the patient have a future office visit with this provider/department: Yes 07/2024 Last refill: 01/2024 Requested Prescriptions Pending Prescriptions Disp Refills meloxicam (MOBIC) 7.5 mg tablet 90 tablet 0 Sig: Take 1 tablet by mouth once daily. Jeannie Pool MA March 07, 2024 9:51 AM documented in this encounter [facility] 03-07-2024 Telephone encounter Note Formatting of this note is different fro m the original. [facility] 12/01/23 Patient phones requesting refills as follows: Requested Prescriptions Pending Prescriptions Disp Refills fluticasone furoate (ARNUITY ELLIPTA) 100 mcg/actuation inhaler 30 Each 5 Sig: Inhale 1 Puff as instructed once daily. Please review and advise. Cassia Santos LPN [facility] 03-07-2024 Miscellaneous Notes Formatting of this note is different fro m the original. [facility] 12/01/23 Patient phones requesting refills as follows: Requested Prescriptions Pending Prescriptions Disp Refills fluticasone furoate (ARNUITY ELLIPTA) 100 mcg/actuation inhaler 30 Each 5 Sig: Inhale 1 Puff as instructed once daily. Please review and advise. Cassia Santos LPN documented in this encounter [facility] 02-17-2024 Telephone encounter Note Formatting of this note might be differe nt from the original. Sent Cholesterol guidelines. Jeannie Pool MA [facility] 02-17-2024 Miscellaneous Notes Formatting of this note might be differe nt from the original. Sent Cholesterol guidelines. Jeannie Pool MA documented in this encounter [facility] 02-17-2024 Telephone encounter Note Formatting of this note might be differe nt from the original. Patient notified and results. She works out 5 days a week. No sure what foods would be good or not good. Mailed cholesterol food guideline. She would like to go that route first. Jeannie Pool MA [facility] 02-17-2024 Miscellaneous Notes Formatting of this note might be differe nt from the original. Patient notified and results. She works out 5 days a week. No sure what foods would be good or not good. Mailed cholesterol food guideline. She would like to go that route first. Jeannie Pool MA Let patient know her lipid panel showed Trigs ok at 143, HDL very good ay 83 and LDL elevated at 152 (goal<130). Her 10 year risk for a heart attack or stroke is only 9%. However is interested we can start a lipid lowering medication to reduce this. Otherwise working on less fat/chol in the diet can help along with moderate exercise. Her other labs were ok. documented in this encounter [facility] 02-17-2024 Telephone encounter Note Formatting of this note might be differe nt from the original. Let patient know her lipid panel showed Trigs ok at 143, HDL very good ay 83 and LDL elevated at 152 (goal<130). Her 10 year risk for a heart attack or stroke is only 9%. However is interested we can start a lipid lowering medication to reduce this. Otherwise working on less fat/chol in the diet can help along with moderate exercise. Her other labs were ok. [facility] 02-12-2024 Instructions Tacos eHin MD - 02/12/2024 2:42 PM EDT Please get labs and urine test done on or after 08/05/2024 prior to your next visit. documented in this encounter [facility] 02-12-2024 History of Present illness Narrative Formatting of this note is different fro m the original. Chief Complaint Patient presents with: Hospital Follow Up HPI Lupis Brito is a 74 year old female who presents here today for Hospital Discharge Follow up.. Patient was admitted to [facility] on on for chest tightness, nausea and Palpitations. There was concern for accelerated Idioventricular junctional rhythm. Overnight monitor showed sinus rhythm and regular. Echocardiogram showed normal ejection fraction. The tachycardia rhythm was considered a side effect of the doxycycline. 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 Patient is to follow up with instruction assistant principal regarding changing of medication. Since discharge she has not had any plpations and her watch has not warned her of any. No shortness of breath or chest pain. No leg swelling. In the hospital her TSH was elevated at 4.95. patient has no Hx of thyroid issues. No FHx of thyroid issues. Past medical history, appointments, medications, allergies reviewed. [...] irregular heart beat. Asthma No Family History Coronary Artery Disease No Family History Patient Allergies ALLERGIES Allergen Reactions Clindamycin Rash Boniva [Ibandronate] GI Upset Increase in GERD Doxycycline Other: See Comments Accelerated heart rate Fosamax [Alendronat* GI Upset Increase heartburn/GI Mold Other: See Comments Nasal/sinus Penicillins Unknown Pollen Extracts Other: See Comments Nasal/sinus Sulfa (Sulfonamide * Unknown Current Medications Current Outpatient Medications on File Prior to Visit Medication Sig fluticasone (FLONASE) 50 mcg/actuation nasal spray instill 2 sprays into each nostril once daily gabapentin (NEURONTIN) 300 mg capsule Take 1 capsule by mouth two times a day for 180 days. denosumab (PROLIA) 60 mg/mL 1 milliliter subcutaneously every 6 months. fluticasone furoate (ARNUITY ELLIPTA) 100 mcg/actuation inhaler Inhale 1 Puff as instructed once daily. meloxicam (MOBIC) 7.5 mg tablet Take 1 tablet by mouth once daily. montelukast (SINGULAIR) 10 mg tablet Take 1 tablet by mouth daily at bedtime. calcium carbonate (CALCIUM 300 ORAL) Take by mouth once daily. albuterol HFA (VENTOLIN HFA) 90 mcg/actuation inhaler Inhale 2 Puffs as instructed every 4 hours as needed for wheezing/shortness of breath. MELATONIN ORAL Take by mouth as directed. [...] No Review of Symptoms REVIEW OF SYSTEMS See HPI EXAM: BP 112/80 (BP Site: Left Arm, BP Position: Sitting, BP Cuff Size: Regular Adult) Pulse 60 Resp 14 Wt 59.4 kg (131 lb) SpO2 98% BMI 22.49 kg/m General Appearance: Well appearing, alert, in no acute distress, well-hydrated, well nourished.. Neck: Supple, no adenopathy; thyroid symmetric, normal size, no bruits. Lungs: Lungs clear to auscultation. No wheezing, rhonchi, rales.. Heart: RRR without murmur, gallop, or rubs. No ectopy. Extremities: No deformities, edema, skin discoloration, clubbing or cyanosis. Good capillary refill. . Health Maintenance List RSV Vaccine(1 - 1-dose 60+ series) Never done Covid-19 Vaccine(2022- season) due on 03/27/2023 Advance Directive Discussion due on 07/27/2023 Behavioral Health Screening Never done Bone Density Screening due on 03/10/2024 Influenza Vaccine(1) due on 03/27/2024 Annual PCP Team Chronic Disease Visit due on 08/10/2024 Diabetes Screening due on 02/12/2026 Lipid Screening due on 02/13/2028 DTaP,Tdap,Td Vaccine(2 - Td or Tdap) due on 02/09/2029 Spirometry Completed Shingrix Vaccine Completed Pneumococcal Vaccine: 65+ Completed Mammogram Screening Discontinued Colorectal Cancer Screening Discontinued Hepatitis C Screening Discontinued Data reviewed Hospital admission papers from [facility]. A/P ASSESSMENT/PLAN: 1. Accelerated atrioventricular junctional rhythm - ICD9: 427.89, ICD10: I49.8 (primary diagnosis) - suspected to be due to doxycycline. Check - THYROID STIMULATING HORMONE - T3, FREE - T4 FREE/FREE THYROXINE Advised patient if she has palpitations again that we should pursue a event monitor. 2. Subclinical hypothyroidism - ICD9: 244.8, ICD10: E03.8 Check - THYROID STIMULATING HORMONE - T3, FREE - T4 FREE/FREE THYROXINE 3. Dyslipidemia - ICD9: 272.4, ICD10: E78.5 - await labs. - Counseled on healthy diet and regular exercise - COMPREHENSIVE METABOLIC PANEL - LIPID PANEL, NONFASTING Patient declined having medicare wellness complete this year. Prefers to wait and do in 6 months. Tacos Hein MD documented in this encounter [facility] 02-12-2024 Note HNO ID: [id number] Author: TACOS HIEN MD Service: ? Author Type: Physician Type: Progress Notes Filed: 02/21/2024 13:33 Note Text: Chief Complaint Patient presents with: Hospital Follow Up HPI Lupis Brito is a 74 year old female who presents here today for Hospital Discharge Follow up.. Patient was admitted to [facility] on on for chest tightness, nausea and Palpitations. There was concern for accelerated Idioventricular junctional rhythm. Overnight monitor showed sinus rhythm and regular. Echocardiogram showed normal ejection fraction. The tachycardia rhythm was considered a side effect of the doxycycline. 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 Patient is to follow up with instruction assistant principal regarding changing of medication. Since discharge she has not had any plpations and her watch has not warned her of any. No shortness of breath or chest pain. No leg swelling. In the hospital her TSH was elevated at 4.95. patient has no Hx of thyroid issues. No FHx of thyroid issues. Past medical history, appointments, medications, allergies reviewed. [...] irregular heart beat. Asthma No Family History Coronary Artery Disease No Family History Patient Allergies ALLERGIES Allergen Reactions Clindamycin Rash Boniva [Ibandronate] GI Upset Increase in GERD Doxycycline Other: See Comments Accelerated heart rate Fosamax [Alendronat* GI Upset Increase heartburn/GI Mold Other: See Comments Nasal/sinus Penicillins Unknown Pollen Extracts Other: See Comments Nasal/sinus Sulfa (Sulfonamide * Unknown Current Medications Current Outpatient Medications on File Prior to Visit Medication Sig fluticasone (FLONASE) 50 mcg/actuation nasal spray instill 2 sprays into each nostril once daily gabapentin (NEURONTIN) 300 mg capsule Take 1 capsule by mouth two times a day for 180 days. denosumab (PROLIA) 60 mg/mL 1 milliliter subcutaneously every 6 months. fluticasone furoate (ARNUITY ELLIPTA) 100 mcg/actuation inhaler Inhale 1 Puff as instructed once daily. meloxicam (MOBIC) 7.5 mg tablet Take 1 tablet by mouth once daily. montelukast (SINGULAIR) 10 mg tablet Take 1 tablet by mouth daily at bedtime. calcium carbonate (CALCIUM 300 ORAL) Take by mouth once daily. albuterol HFA (VENTOLIN HFA) 90 mcg/actuation inhaler Inhale 2 Puffs as instructed every 4 hours as needed for wheezing/shortness of breath. MELATONIN ORAL Take by mouth as directed. [...] No Review of Symptoms REVIEW OF SYSTEMS See HPI EXAM: BP 112/80 (BP Site: Left Arm, BP Position: Sitting, BP Cuff Size: Regular Adult) Pulse 60 Resp 14 Wt 59.4 kg (131 lb) SpO2 98% BMI 22.49 kg/m? General Appearance: Well appearing, alert, in no acute distress, well-hydrated, well nourished.. Neck: Supple, no adenopathy; thyroid symmetric, normal size, no bruits. Lungs: Lungs clear (more content not included)... [facility] 02-08-2024 Telephone encounter Note Formatting of this note is different fro m the original. Prescription Refill Information The patient has been identified by name and date of : Yes Caregiver verified no other encounters exist for this prescription request: Yes Caregiver confirmed with patient/requestor that no other refills are due, in the near future, with this provider at this time: Yes The last office visit in the department: 08/10/2023 Does the patient have a future office visit with this provider/department: Yes Requested Prescriptions Pending Prescriptions Disp Refills fluticasone (FLONASE) 50 mcg/actuation nasal spray 3 Each 3 Sig: instill 2 sprays into each nostril once daily gabapentin (NEURONTIN) 300 mg capsule 180 capsule 1 Sig: Take 1 capsule by mouth two times a day for 180 days. denosumab (PROLIA) 60 mg/mL 1 mL 1 Si milliliter subcutaneously every 6 months. Maryana Godinez LPN February 08, 2024 1:45 PM [facility] 02-08-2024 Miscellaneous Notes Formatting of this note is different fro m the original. Prescription Refill Information The patient has been identified by name and date of : Yes Caregiver verified no other encounters exist for this prescription request: Yes Caregiver confirmed with patient/requestor that no other refills are due, in the near future, with this provider at this time: Yes The last office visit in the department: 08/10/2023 Does the patient have a future office visit with this provider/department: Yes Requested Prescriptions Pending Prescriptions Disp Refills fluticasone (FLONASE) 50 mcg/actuation nasal spray 3 Each 3 Sig: instill 2 sprays into each nostril once daily gabapentin (NEURONTIN) 300 mg capsule 180 capsule 1 Sig: Take 1 capsule by mouth two times a day for 180 days. denosumab (PROLIA) 60 mg/mL 1 mL 1 Si milliliter subcutaneously every 6 months. Maryana Goidnez LPN February 08, 2024 1:45 PM documented in this encounter [facility] 02-08-2024 Telephone encounter Note Formatting of this note is different fro m the original. [facility] 12/01/23 Patient phones requesting refills as follows: Requested Prescriptions Pending Prescriptions Disp Refills fluticasone furoate (ARNUITY ELLIPTA) 100 mcg/actuation inhaler 1 Each 5 Sig: Inhale 1 Puff as instructed once daily. Please review and advise. Cassia Santos LPN [facility] 02-08-2024 Miscellaneous Notes Formatting of this note is different fro m the original. [facility] 12/01/23 Patient phones requesting refills as follows: Requested Prescriptions Pending Prescriptions Disp Refills fluticasone furoate (ARNUITY ELLIPTA) 100 mcg/actuation inhaler 1 Each 5 Sig: Inhale 1 Puff as instructed once daily. Please review and advise. Cassia Santos LPN documented in this encounter [facility] 01-29-2024 Note [facility] Medical Records Department [address] [place] [address] Discharge Summary 01/29/24 1523 MR#: [id number] Acct: [id number] Name: LUPIS BRITO Rep #: [id number] : 1950 73 From: Inez Moya MD PCP: Dr. Tacos Hein MD Status:ADM TIAGO Location: [place] [address] Providers Date of Admission: 01/29/24 Date of Discharge: 01/29/24 Primary Care Physician: Dr. Tacos Hein MD Reason For Visit: ACCELERATED AV-JUNCTIONAL RHYTHM W/INC Diagnosis Discharge Diagnosis (1) Accelerated atrioventricular junctional rhythm: Status: Acute Code(s): I49.8 - Other specified cardiac arrhythmias (2) Elevated troponin: Status: Acute Code(s): R79.89 - Other specified abnormal findings of blood chemistry (3) Chest pressure: Status: Acute Code(s): R07.89 - Other chest pain (4) Adverse drug reaction: Status: Acute Code(s): T50.905A - Adverse effect of unspecified drugs, medicaments and biological substances, initial encounter Qualifiers: Encounter type: initial encounter Qualified Code(s): T50.905A - Adverse effect of unspecified drugs, medicaments and biological substances, initial encounter (5) Chronic asthma: Status: Chronic Code(s): J45.909 - Unspecified asthma, uncomplicated Qualifiers: Asthma severity: unspecified severity Asthma persistence: unspecified Asthma complication type: unspecified Qualified Code(s): J45.909 - Unspecified asthma, uncomplicated Plan 73-year-old female is admitted under observation for evaluation management of palpitations and associated elevated troponin levels. Her stress test was recently negative back in July 2023. Her rhythm during her observation was sinus and normal. No runs of tachycardia. Echocardiogram was normal ejection fraction no valvular changes. She will follow-up with cardiology as an outpatient. The tachycardia rhythm was considered a side effect of doxycycline. For this reason it was discontinued and she was started on ciprofloxacin 0.3% eyedrops for her blocked duct Medications at Discharge Home Medications albuterol sulfate 90 mcg/actuation aerosol inhaler 2 puff inhalation Q4H PRN shortness of breath or wheezing 01/28/24 beclomethasone dipropionate 80 mcg/actuation HFA breath activated aerosol (Qvar RediHaler) 2 inh inhalation BID 01/28/24 denosumab 60 mg/mL subcutaneous syringe (Prolia) 60 mg subcut .[id number] 01/28/24 fluticasone furoate 100 mcg/actuation blister powder for inhalation (Arnuity Ellipta) 1 inh inhalation DAILY 01/28/24 gabapentin 300 mg capsule 300 mg PO Q12H 01/28/24 meloxicam 7.5 mg tablet 7.5 mg PO DAILY 01/28/24 montelukast 10 mg tablet 10 mg PO QHS 01/28/24 ciprofloxacin HCl 0.3 % eye drops 1 drp LEFT EYE Q4 #5 mL 01/29/24 Hospital Course Summary of Care Provided Hospital Course: 73-year-old female was admitted to the hospital with concerns regarding accelerated idioventricular junctional rhythm for further monitoring. After overnight monitoring her heart rate was in sinus rhythm and regular. Echocardiogram was done which showed normal ejection fraction. The tachycardia rhythm was considered a side effect of doxycycline. For this reason it was discontinued and she was started on ciprofloxacin 0.3% eyedrops for her blocked duct #accelerated atrioventricular junctional rhythm: -Likely drug reaction to doxycycline -Discontinue medication, patient will follow-up with her outpatient instruction assistant principal regarding change of medications. #Troponin increase: -No changes on echocardiogram, patient has no symptoms at this time, stress test was recently negative #Chronic asthma: -Continue home as needed nebulizers and inhalers with montelukast. #Osteoporosis: On Prolia, Continue same #Neuropathy: Continue gabapentin #Ganglion cyst resolved #Osteoarthritis: Tylenol as needed #DVT prophylaxis: Levofloxacin 40 mg subcu Physical Exam Const alert and oriented x3 HEENT normocephalic Eyes PERRL Neck no lymphadenopathy Resp normal respiratory effort Cardio regular rate and regular rhythm GI normal to inspection, nondistended, normoactive bowel sounds Extremity normal to inspection Skin no rashes or lesions noted Neuro oriented x3 Psych affect normal Weight / BMI Weight Weight: 131 lb 13.383 oz Body Mass Index (BMI) 22.6 ABG / Lab / Microbiology Data 01/29/24 05:39 01/29/24 05:39 Laboratory: Laboratory Results - last 24 hr 01/28/24 23:31: WBC 7.3, RBC 4.16 L, Hgb 12.3, Hct 37.6, MCV 90.4, MCH 29.6, MCHC 32.7, RDW Std Deviation 44.4 H, RDW Coeff of Angy 13.3, Plt Count 288, MPV 9.3, Immature Gran % (Auto) 0.100, Neut % (Auto) 48.1, Lymph % (Auto) 38.1, [place] % (Auto) 9.8, Eos % (Auto) 3.1, Baso % (Auto) 0.8, Absolute Neuts (auto) 3.5, Absolute Lymphs (auto) 2.79, Nucleated RBC % 0, Sodium 140, Potassium 4.1, Chloride (more content not included)... [facility] 12-11-2023 Telephone encounter Note Formatting of this note is different fro m the original. The following approved medication requests have been transmitted electronically. Requested Prescriptions Signed Prescriptions Disp Refills meloxicam (MOBIC) 7.5 mg tablet 90 tablet 0 Sig: Take 1 tablet by mouth once daily. Tacos Hein MD [facility] 12-11-2023 Miscellaneous Notes Formatting of this note is different fro m the original. The following approved medication requests have been transmitted electronically. Requested Prescriptions Signed Prescriptions Disp Refills meloxicam (MOBIC) 7.5 mg tablet 90 tablet 0 Sig: Take 1 tablet by mouth once daily. Tacos Hein MD Prescription Refill Information The patient has been identified by name and date of : Yes Caregiver verified no other encounters exist for this prescription request: Yes Caregiver confirmed with patient/requestor that no other refills are due, in the near future, with this provider at this time: Yes The last office visit in the department: 08/10/2023 Does the patient have a future office visit with this provider/department: No Have reached out to patient. Requested Prescriptions Pending Prescriptions Disp Refills meloxicam (MOBIC) 7.5 mg tablet 90 tablet 1 Sig: Take 1 tablet by mouth once daily. Jeannie Pool MA December 11, 2023 3:48 PM documented in this encounter [facility] 12-11-2023 Telephone encounter Note Formatting of this note is different fro m the original. Prescription Refill Information The patient has been identified by name and date of : Yes Caregiver verified no other encounters exist for this prescription request: Yes Caregiver confirmed with patient/requestor that no other refills are due, in the near future, with this provider at this time: Yes The last office visit in the department: 08/10/2023 Does the patient have a future office visit with this provider/department: No Have reached out to patient. Requested Prescriptions Pending Prescriptions Disp Refills meloxicam (MOBIC) 7.5 mg tablet 90 tablet 1 Sig: Take 1 tablet by mouth once daily. Jeannie Pool MA December 11, 2023 3:48 PM [facility] 12-01-2023 History of Present illness Narrative Formatting of this note is different fro m the original. Images from the original note were not included. . [facility] [place] Note Patient name: Lupis Brito PCP: Tacos Hein MD CC: Follow-up asthma HPI: Lupis Brito 73 year old female never smoker with PMH significant for asthma, rhinitis, fibromyalgia, osteoporosis. Asthma diagnosed by positive JEREMIAH. At [facility] [place], having issues with breathing through her nose, known deviated septum. Referred to ENT and continued inhaled therapy with QVAR and as needed albuterol. Allergic component treated with Singulair, antihistamines and Flonase. She did see ENT who did not believe her deviated septum was severe enough to require any intervention although she does have a perforation. Perforation not large enough to require repair. She is currently using Arnuity as her insurance would no longer cover Qvar. She states she has been doing well with the Arnuity, no dysphonia, thrush or sore throat. From an asthma standpoint she has noted some increase symptoms related to seasonal allergies as spring is her most problematic time. Symptoms not severe enough to require use of her albuterol. No severe shortness of breath to curtail her activities, no audible wheezing, no chest pain, no severe coughing. PAST MEDICAL HISTORY Diagnosis Date Acute gastritis [...] See Comments Nasal/sinus Sulfa (Sulfonamide * Unknown fluticasone furoate (ARNUITY ELLIPTA) 100 mcg/actuation inhaler^Inhale 1 Puff as instructed once daily.^Disp: 1 Each^Rfl: 5 montelukast (SINGULAIR) 10 mg tablet^Take 1 tablet by mouth daily at bedtime.^Disp: 90 tablet^Rfl: 1 denosumab (PROLIA) 60 mg/mL^1 milliliter subcutaneously every 6 months.^Disp: 1 mL^Rfl: 1 calcium carbonate (CALCIUM 300 ORAL)^Take by mouth once daily.^Disp: ^Rfl: albuterol HFA (VENTOLIN HFA) 90 mcg/actuation inhaler^Inhale 2 Puffs as instructed every 4 hours as needed for wheezing/shortness of breath.^Disp: 3 Each^Rfl: 2 fluticasone (FLONASE) 50 mcg/actuation nasal spray^instill 2 sprays into each nostril once daily^Disp: 3 Each^Rfl: 3 meloxicam (MOBIC) 7.5 mg tablet^Take 1 tablet by mouth once daily.^Disp: 90 tablet^Rfl: 1 MELATONIN ORAL^Take by mouth as directed.^Disp: ^Rfl: VITAMIN B COMPLEX ORAL^Take by mouth.^Disp: ^Rfl: L.ACID/L.CASEI/B.BIF/B.ROBIN/FOS (PROBIOTIC BLEND ORAL)^Take by mouth.^Disp: ^Rfl: folic acid 800 mcg ORAL Tab^Take one(1) tablet daily.^Disp: ^Rfl: 0 DAILY MULTIVITAMIN TAB^Take one(1) tablet daily.^Disp: ^Rfl: 0 gabapentin (NEURONTIN) 300 mg capsule^Take 1 capsule by mouth twice daily for 180 days.^Disp: 180 capsule^Rfl: 1 Social History Tobacco Use Smoking status: Never Smokeless tobacco: Never Vaping Use Vaping Use: Never used Substance Use Topics Alcohol use: Yes Comment: occasionally Drug use: No FAMILY HISTORY Problem Relation Age of Onset Hypertension Mother Lipids Mother Skin Cancer Mother chemo and radiation Heart Father irregular heart beat. Asthma No Family History Coronary Artery Disease No Family History PAST SURGICAL HISTORY Procedure [...] fevers, chills, nightsweats, unintended weight loss HEENT: Some nasal congestion/sinus symptoms, allergy problems. CARDIOVASCULAR: No chest pain, dyspnea, palpitations, orthopnea, PND, edema. PULM: See HPI PHYSICAL EXAMINATION: Wt 132 lb (59.9kg) BP 120/70, pulse 83, RR 14, SpO2 98% on room air General Appearance: Age-appropriate female, NAD. Skin: Skin color, texture, turgor normal, no suspicious rashes or lesions. Head: Normocephalic, no masses, lesions, tenderness or abnormalities. Eyes: Sclera, conjunctiva normal. Oropharynx: No oral lesions or thrush. Neck: No JVD, no masses, no adenopathy. Lungs: Not labored, normal to percussion, no wheezes or crackles. Heart: Regular rate and rhythm, no murmurs or gallops. Extremities: No edema clubbing. Assessment/Plan: 1. Mild intermittent asthma, uncomplicated -Currently controlled on inhaled corticosteroid alone. She will continue therapy with Arnuity and as needed albuterol -Follow-up 6 months or sooner with problems 2. Seasonal allergies -She will continue with Singulair Flonase and as needed OTC antihistamines Alona Cruz MD [facility] [place] documented in this encounter [facility] 11-18-2023 Telephone encounter Note Formatting of this note might be differe nt from the original. Called and spoke with the patient. She states that she is going to reach out to her insurance regarding the Singulair for their preferred alternative. Patient states that she has been out of her inhaler for about a month and asking for a script for the Arnuity be sent. Erika Toledo, RN [facility] 11-18-2023 Miscellaneous Notes Formatting of this note might be differe nt from the original. Called and spoke with the patient. She states that she is going to reach out to her insurance regarding the Singulair for their preferred alternative. Patient states that she has been out of her inhaler for about a month and asking for a script for the Arnuity be sent. Erika Toledo RN documented in this encounter [facility] 10-29-2023 Miscellaneous Notes Formatting of this note is different fro m the original. Patient has been identified by name and date of : Patient phones for refill(s): Requested Prescriptions Pending Prescriptions Disp Refills montelukast (SINGULAIR) 10 mg tablet 90 tablet 1 Sig: Take 1 tablet by mouth daily at bedtime. Date of last office visit in primary care: 08/10/2023 Date of next office visit in primary care: 04/06/2024 Please advise. Thank you. Alona Wolf MA. documented in this encounter [facility] 10-13-2023 History of Present illness Narrative Formatting of this note is different fro m the original. This note was created using NoteWriter. Subjective Lupis Brito is a 73 year old female. 73 year old female with PMH RLS, fibromyalgia, asthma, dyslipidemia presents for eye complaints. Acute onset yesterday Right eye +itching +matted eyelids +drainage Denies loff Of note, recent URI symptoms Started 2 weeks ago + nasal congestion +sinus pressure +cough +post nasal drainage Denies SOB or dyspnea Wears corrective glasses Denies contact lens. Has seen eye doctor in past year Denies tobacco usage The history is provided by the patient. No english as a second language teacher was used. Eye Problem This is a new problem. The current episode started yesterday. The problem occurs constantly. The problem has been unchanged. Associated symptoms include congestion, coughing and headaches. Pertinent negatives include no abdominal pain, anorexia, arthralgias, change in bowel habit, chest pain, chills, diaphoresis, fatigue, fever, joint swelling, myalgias, nausea, neck pain, numbness, rash, sore throat, swollen glands, urinary symptoms, vertigo, visual change, vomiting or weakness. Nothing aggravates the symptoms. She has tried nothing for the symptoms. The treatment provided no relief. Sinus Problem This is a new problem. The current episode started 1 to 4 weeks ago. The problem occurs constantly. The problem has been gradually worsening. Associated symptoms include congestion, coughing and headaches. Pertinent negatives include no abdominal pain, anorexia, arthralgias, change in bowel habit, chest pain, chills, diaphoresis, fatigue, fever, joint swelling, myalgias, nausea, neck pain, numbness, rash, sore throat, swollen glands, urinary symptoms, vertigo, visual change, vomiting or weakness. Nothing aggravates the symptoms. She has tried nothing for the symptoms. The treatment provided no relief. PAST MEDICAL HISTORY Diagnosis Date Acute gastritis [...] SURGICAL HISTORY OF 07/27/1979 deviated septum ALLERGIES Clindamycin, Boniva [Ibandronate], Fosamax [Alendronate], Mold, Penicillins, Pollen Extracts, and Sulfa (Sulfonamide Antibiotics) MEDICATIONS beclomethasone (QVAR REDIHALER) 80 mcg/actuation inhaler^Inhale 2 Puffs as instructed two times a day.^Disp: 32 g^Rfl: 1 denosumab (PROLIA) 60 mg/mL^1 milliliter subcutaneously every 6 months.^Disp: 1 mL^Rfl: 1 calcium carbonate (CALCIUM 300 ORAL)^Take by mouth once daily.^Disp: ^Rfl: albuterol HFA (VENTOLIN HFA) 90 mcg/actuation inhaler^Inhale 2 Puffs as instructed every 4 hours as needed for wheezing/shortness of breath.^Disp: 3 Each^Rfl: 2 fluticasone (FLONASE) 50 mcg/actuation nasal spray^instill 2 sprays into each nostril once daily^Disp: 3 Each^Rfl: 3 meloxicam (MOBIC) 7.5 mg tablet^Take 1 tablet by mouth once daily.^Disp: 90 tablet^Rfl: 1 gabapentin (NEURONTIN) 300 mg capsule^Take 1 capsule by mouth twice daily for 180 days.^Disp: 180 capsule^Rfl: 1 montelukast (SINGULAIR) 10 mg tablet^Take 1 tablet by mouth daily at bedtime.^Disp: 90 tablet^Rfl: 1 MELATONIN ORAL^Take by mouth as directed.^Disp: ^Rfl: VITAMIN B COMPLEX ORAL^Take by mouth.^Disp: ^Rfl: L.ACID/L.CASEI/B.BIF/B.ROBIN/FOS (PROBIOTIC BLEND ORAL)^Take by mouth.^Disp: ^Rfl: folic acid 800 mcg ORAL Tab^Take one(1) tablet daily.^Disp: ^Rfl: 0 DAILY MULTIVITAMIN TAB^Take one(1) tablet daily.^Disp: ^Rfl: 0 doxycycline (VIBRA-TABS) 100 mg tablet^Take 1 tablet by mouth two times a day for 7 days.^Disp: 14 tablet^Rfl: 0 trimethoprim-polymyxin (POLYTRIM) 10,000 unit- 1 mg/mL ophthalmic solution^Use 1 Drop in the right eye every 4 hours for 7 days.^Disp: 10 mL^Rfl: 0 FAMILY HISTORY Problem Relation Age of Onset Hypertension Mother Lipids Mother Skin Cancer Mother chemo and radiation Heart Father irregular heart beat. Asthma No Family History Coronary Artery Disease No Family History Social History Tobacco Use Smoking status: Never Smokeless tobacco: Never Vaping Use Vaping Use: Never used Substance Use Topics Alcohol use: Yes Comment: occasionally Drug use: No Review of Systems Constitutional: Negative for chills, diaphoresis, fatigue and fever. HENT: Positive for congestion, postnasal drip, sinus pressure and sinus pain. Negative for sore throat. Eyes: Positive for discharge and itching. Negative for photophobia, pain, redness and visual disturbance. Respiratory: Positive for cough. Negative for apnea, choking and chest tightness. Cardiovascular: Negative for chest pain. Gastrointestinal: Negative for abdominal pain, anorexia, change in bowel habit, nausea and vomiting. Musculoskeletal: Negative for arthralgias, joint swelling, myalgias and neck pain. Skin: Negative for color change, pallor and rash. Allergic/Immunologic: Negative for environmental allergies, food allergies and immunocompromised state. Neurological: Positive for headaches. Negative for dizziness, vertigo, facial asymmetry, weakness and numbness. Hematological: Negative for adenopathy. Does not bruise/bleed easily. Psychiatric/Behavioral: Negative for agitation. Objective BP 126/82 Pulse 83 Temp 36.5 C (97.7 F) (Tympanic) Resp 18 Wt 60.8 kg (134 lb 0.6 oz) SpO2 99% BMI 23.01 kg/m Physical Exam Vitals and nursing note reviewed. Constitutional: General: She is not in acute distress. Appearance: Normal appearance. She is normal weight. She is not ill-appearing, toxic-appearing or diaphoretic. HENT: Head: Normocephalic and atraumatic. Comments: +frontal sinus pressure +maxillary sinus pressure Right Ear: Ear canal and external ear normal. Left Ear: Ear canal and external ear normal. Nose: Nose normal. No congestion or rhinorrhea. Mouth/Throat: Mouth: Mucous membranes are moist. Pharynx: No oropharyngeal exudate or posterior oropharyngeal erythema. Eyes: General: Right eye: No discharge. Left eye: No discharge. Extraocular Movements: Extraocular movements intact. Conjunctiva/sclera: Conjunctivae normal. Pupils: Pupils are equal, round, and reactive to light. Comments: Vision grossly intact OD with drainage +matted eyelids EOM intact OS normal Cardiovascular: Rate and Rhythm: Normal rate and [...] Left lower leg: No edema. Lymphadenopathy: Cervical: Cervical adenopathy present. Skin: General: Skin is warm and dry. [...] Judgment normal. Assessment and Plan ASSESSMENT/PLAN: 1. Conjunctivitis of right eye, unspecified conjunctivitis type - ICD9: 372.30, ICD10: H10.9 (primary diagnosis) X 2 days No red flags - see medication orders - course and contagiousness issues discussed, including hand washing. - Instructed to call if high fever, development of periorbital redness or swelling, eye pain, visual changes, concerns or if symptoms persist. 2. Rhinosinusitis - ICD9: 473.9, ICD10: J32.9 - Will begin treatment with as per antibiotic as written, see orders - The patient should also be given OTC cough and cold meds as needed, warm salt water gargles, throat lozenges and/or OTC throat spray as needed, and nasal saline gtts and suction prn for the first 5-7 days of treatment. - Supportive care with plenty of fluids, rest, and analgesia prn. - Follow up in 3-5 days if symptoms persist or worsen. Nadia Reddy APRN.SNOW RANGER documented in this encounter [facility] 09-18-2023 History of Present illness Narrative Formatting of this note might be differe nt from the original. Patient presents for Prolia injection. Denies any problems at this time. Brought own medication. Patient instructed on any SE of medication, verbalized understanding and agreed to proceed with treatment. Tolerated injection well. Susanne West LPN documented in this encounter [facility] 09-09-2023 Miscellaneous Notes Formatting of this note might be differe nt from the original. Patient scheduled for nurse visit 09/18/23 to receive Prolia injection. Please place administration order at this time. Susanne West LPN documented in this encounter [facility] 09-08-2023 Miscellaneous Notes Formatting of this note might be differe nt from the original. Pharmacist with [facility] calls to make sure office is aware that pt is having Prolia sent to her home and then bringing it into office to be administered by nurse. Per pt's [facility] message pt has advised office of this. Leann Leahy LPN documented in this encounter [facility] 05-27-2023 History of Present illness Narrative Formatting of this note is different fro m the original. Images from the original note were not included. Patient: Lupis Brito PCP: Tacos Hein MD CC: follow up HPI: Lupis Brito 73 year old female never smoker with PMH significant for allergic rhinitis, asthma, fibromyalgia, and osteoporosis. 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 Initially evaluated by Dr. Cruz on 04/13 at which time she was started on ICS with as needed Albuterol. She was also instructed to continue Singulair. Today, patient states since starting ICS cough has subsided. No wheezing. She does note a whistling sound through her nose. She has a history of a deviated septum that was repaired years ago. Is planning on following up with ENT, [...] DATE OF EXAM: Feb 17 2023 10:34AM [facility] 0488 - CT SINUS WO IVCON / IMPRESSION: Clear paranasal sinuses. No acute process. DATE OF EXAM: Sep 04 2014 9:00AM [facility] 0347 - CT CHEST W CONTRAST [...] and edited and updated as necessary. Marilou Rich PA-C documented in this encounter [facility] 04-14-2023 Miscellaneous Notes Formatting of this note might be differe nt from the original. Flovent non formulary on patient's insurance. Requesting Asmanex Twisthaler, Asmanex HFA, or Qvar Redihaler. Cassia Santos LPN documented in this encounter [facility] 04-13-2023 History of Present illness Narrative Formatting of this note is different fro m the original. Images from the original note were not included. . [facility] [place] Note Patient name: Lupis Brito PCP: Tacos Hein MD Referring Physician: Self CC: SOB HPI: Lupis Brito 73 year old female never smoker with PMH significant for allergic rhinitis, asthma, fibromyalgia, osteoporosis being seen as a self referral for SOB. Cough variant diagnosed by positive methacholine challenge testing in 2015 (24% drop in FEV1 at 10 mg/mL). [...] phonation especially when trying to sing at [facility]. She has raspy voice and difficulty speaking [...] 2.50 Monocytes % % 8.1 6.3 Abs [place] <0.87 k/uL 0.50 0.45 Eosinophils % % 2.4 2.6 Abs Eosin <0.46 k/uL 0.15 0.19 Basophils % % 1.0 1.1 Abs Baso <0.11 k/uL 0.06 0.08 Immature Granulocytes % % 0.2 Abs Immature Gran <0.10 k/uL <0.03 NRBC /100 WBC 0.0 Absolute nRBC <0.01 k/uL <0.01 <0.01 Diff Type Auto Imaging / Diagnostic Studies: DATE OF EXAM: Feb 17 2023 10:34AM [facility] 0488 - CT SINUS WO IVCON / IMPRESSION: Clear paranasal sinuses. No acute process. DATE OF EXAM: Sep 04 2014 9:00AM [facility] 0347 - CT CHEST W CONTRAST [...] Singulair, Flonase and antihistamines for now Alona Cruz MD [facility] [place] documented in this encounter [facility] 03-19-2023 Miscellaneous Notes Formatting of this note is different fro m the original. The following approved medication requests have been transmitted electronically. Requested Prescriptions Signed Prescriptions Disp Refills fluticasone (FLONASE) 50 mcg/actuation nasal spray 3 Each 3 Sig: instill 2 sprays into each nostril once daily Authorizing Provider: TACOS HEIN meloxicam (MOBIC) 7.5 mg tablet 90 tablet 1 Sig: Take 1 tablet by mouth once daily. Authorizing Provider: TACOS HEIN gabapentin (NEURONTIN) 300 mg capsule 180 capsule 1 Sig: Take 1 capsule by mouth twice daily for 180 days. Authorizing Provider: TACOS HEIN montelukast (SINGULAIR) 10 mg tablet 90 tablet 1 Sig: Take 1 tablet by mouth daily at bedtime. Authorizing Provider: TACOS HEIN denosumab (PROLIA) 60 mg/mL 1 mL 1 Si milliliter subcutaneously every 6 months. Authorizing Provider: TACOS HEIN MD Spoke with pt. She would like rx for Prolia to go to [facility]. Prosper Rodriguez LPN Find out from patient if she wants the [facility]? Pt is requesting to have refills sent to [facility]. Last refills went to [facility]. [facility] 02/12/23 NOV 08/27/23 Prosper Rodriguez LPN documented in this encounter [facility] 03-19-2023 Miscellaneous Notes Formatting of this note might be differe nt from the original. This is being addressed in another encounter. Prosper Rodriguez SHREDDING MACHINE OPERATOR documented in this encounter [facility] 02-21-2023 History of Present illness Narrative Formatting of this note is different fro m the original. Images from the original note were not included. This note was created using Wiperriter. Subjective Lupis Brito is a 73 year old female. HPI [...] Josephine Iniguez PA-C documented in this encounter [facility] 02-17-2023 History of Present illness Narrative Formatting of this note might be differe nt from the original. Radiology Service Progress Note PATIENT NAME: Lupis Brito DATE OF SERVICE: February 17, 2023 TIME: [...] 2023 1:55 PM documented in this encounter [facility] 01-29-2023 History of Present illness Narrative Formatting of this note might be differe nt from the original. Scan on 01/21/2023 8:22 AM by External Provider, PHUONG: Consultation - PT/OT/Speech Jeannie Pool MA documented in this encounter [facility] 01-29-2023 History of Present illness Narrative Formatting of this note might be differe nt from the original. Patient presents for Prolia injection. Denies any problems at this time. Brought own medication. Patient instructed on any SE of medication, verbalized understanding and agreed to proceed with treatment. Tolerated injection well. Susanne West LPN documented in this encounter [facility] 12-31-2022 History of Present illness Narrative Formatting of this note is different fro m the original. This note was created using NoteWriter. Subjective Lupis Brito is a 72 year old female. 72 [...] history is provided by the patient. No english as a second language teacher was used. Cough This is a new [...] sooner if worsening of symptoms Nadia Reddy APRN.CNP documented in this encounter [facility] 12-26-2022 Miscellaneous Notes Formatting of this note might be differe nt from the original. Records have been faxed as requested. Confirmation received. Patient called. Verified name and date of . Patient states she was told by someone when she called into the clinic to call department to get her records and have them sent to [facility], Dr. Calvert. Attention: Brisa- fax to [phone]. Records from June including operative records, x-rays, testing done. Kira Miles LPN documented in this encounter [facility] 09-12-2022 History of Present illness Narrative Formatting of this note is different fro m the original. POPULATION HEALTH NAVIGATION OUTREACH Action/FYI: Ozzy Care Gaps 09/12/22 Discuss the following due/overdue care gaps: ~6 Month follow up (around 02/12/23 w/ BRANDON per 08/15/22 PCP notes) Outcome: ~Spoke with patient, scheduled with PA per patient request on 02/12/23. Patient Identified by Name and : YES, via phone Outreach Outcome/Action Spoke to patient / parent / legal guardian: Patient scheduled Did you use a PCP flex slot to schedule this appointment? No Reason for Outreach Care Gap or Scheduling/Wellness visits Payer: Payor: T MEDICARE / Plan: AET MEDICARE PPO / Product Type: PPO / Care Gap Reviewed:: Follow-up appointment Reminder: Reminder note to check Health Maintenance for items below Health Maintenance items due: There are no preventive care reminders to display for this patient. Navigation Signature: Tess Acosta Population Health Navigator September 12, 2022 10:02 AM documented in this encounter [facility] 08-28-2022 Miscellaneous Notes Formatting of this note might be differe nt from the original. Pt notified an Rx has been sent to the pharmacy for her. Pt voiced understanding. Josee Berman LPN Let patient know antibiotic sent to [facility]. The following approved medication requests have been transmitted electronically. Requested Prescriptions Signed Prescriptions Disp Refills cefADROxil (DURICEF) 500 mg capsule 20 capsule 0 Sig: Take 1 capsule by mouth twice daily. Authorizing Provider: TACOS HEIN MD Esme saw Dr. Hein on 08-15-22 for a check up and had some cold symptoms. They have not improved much and she was told that he would call in a script if she let him know her status. [facility] [place] Esme [phone] documented in this encounter [facility] 08-20-2022 Miscellaneous Notes Formatting of this note might be differe nt from the original. Patient notified and voiced understanding. Jeannie Pool MA Let patient know her elevated white [...] Left message for patient to contact office. Jeannie Pool MA Let patient know her UA, electrolytes, [...] treat with medication. documented in this encounter [facility] 08-15-2022 Instructions Tacos Hein MD - 08/15/2022 8:12 AM EST Please bring in copies of living davis and durable power of regulatory attorney's for health care. For Lainey Dr. Cruz Recommend over the counter Astepro nasal spray. He can still use flonase. documented in this encounter [facility] 08-15-2022 History of Present illness Narrative Formatting of this note is different fro m the original. Medicare Yearly Visit Medical B eligibilty date [...] 83 Resp 14 Ht 163.2 cm (5' 4.25) Wt 60.3 kg (133 lb) BMI 22.65 kg/m Alert and oriented X 3: YES Body mass index is 22.65 kg/m . Visual acuity: seeing optho See below ASSESSMENT/PLAN: 72 year old female The following prevention plan was discussed during the office visit and provided to the patient: See below Tacos Hein MD Chief Complaint Patient presents with: Medicare Wellness Exam HPI Lupis Brito is a 72 year old female who [...] 83 Resp 14 Ht 163.2 cm (5' 4.25) Wt 60.3 kg (133 lb) BMI 22.65 [...] Abs Lymph 1.00 - 4.00 k/uL 2.17 [place]% % 5.6 Abs [place] <0.87 k/uL 0.35 [place]% % 2.7 Abs [...] diet of 1000 mg/day for under 50, 4527-9083 mg/day for 50+ - Follow up for [...] which included preparing to see the patient, [id number] patient care, completing clinical documentation, performing a medically appropriate examination, counseling and educating the patient/family/caregiver and ordering medications, tests, or procedures. Tacos Hein MD documented in this encounter [facility] 07-25-2022 Miscellaneous Notes Formatting of this note might be differe nt from the original. Patient signed medical release form. Operative note faxed. Release form scanned into [employer]. Phone call to patient. Advised patient to sign release of medical records prior to faxing report. Patient to stop in office and sign release. Release placed at Ortho/Podi/PT PSS desk. Patient is requesting the procedure notes from her surgery on 04/10/[address] Burgess. Please fax to [facility] at [phone] attn: Maya Mohan. documented in this encounter [facility] 07-16-2022 History of Present illness Narrative Formatting of this note might be differe nt from the original. Patient presents for Prolia injection. Denies any problems at this time. Brought own medication. Patient instructed on any SE of medication, verbalized understanding and agreed to proceed with treatment. Tolerated injection well. Susanne West LPN documented in this encounter [facility] 07-07-2022 Miscellaneous Notes Formatting of this note is different fro m the original. The following approved medication requests have been transmitted electronically. Requested Prescriptions Signed Prescriptions Disp Refills denosumab (PROLIA) 60 mg/mL 1 mL 1 Si milliliter subcutaneously every 6 months. Authorizing Provider: TACOS HEIN MD Patient has been identified by name and date of : Yes Requested Prescriptions Pending Prescriptions Disp Refills denosumab (PROLIA) 60 mg/mL 1 mL 1 Si milliliter subcutaneously every 6 months. RX INSTRUCTIONS: Patient aware RX will be sent to pharmacy. No need to notify patient. Jeannie Pool MA Asim: 01/2022 Nov: 07/2022 Last refill: 01/2021 documented in this encounter [facility] 07-07-2022 History of Present illness Narrative Formatting of this note is different fro m the original. Jose A Burgess MD Department of Orthopaedics Orthopaedics [address] [place] [id number] Dept: [phone] Dept July 07, 2022 CHIEF COMPLAINT: Established Patient and Blister of the Right Hand HPI Patient here today for right 5th finger blister. She is s/p excision ganglion cyst right [...] has any issues with it. Ms. Lupis Brito was advised as to contrast therapies and/or to take analgesics/anti-inflammatories as needed and all contraindications were reviewed. OBJECTIVE: Ms. Lupis Brito is a pleasant 72 year old in [...] HPI) Psych (no depression, anxiety) Jose A Burgess MD documented in this encounter [facility] 07-02-2022 Miscellaneous Notes Formatting of this note might be differe nt from the original. Patient has been contacted and appointment moved to 07/07/2022. Pt scheduled an appt for 07/17/22, the soonest appt available at the time of call. She states she is having pain at the site of her surgery done in March along with what looks like a water blister and some redness. She was concerned she should be seen sooner. documented in this encounter [facility] 06-30-2022 Miscellaneous Notes Formatting of this note might be differe nt from the original. done Patient scheduled for nurse visit 07/16/22 to receive Prolia injection. Please place new administration order at this time. Susanne West LPN documented in this encounter [facility] 06-07-2022 Miscellaneous Notes Formatting of this note is different fro m the original. The following approved medication requests have been transmitted electronically. Requested Prescriptions Signed Prescriptions Disp Refills fluticasone (FLONASE) 50 mcg/actuation nasal spray 48 g 11 Sig: instill 2 sprays into each nostril once daily Authorizing Provider: TACOS HEIN MD Patient phones requesting refills as follows: Requested Prescriptions Pending Prescriptions Disp Refills fluticasone (FLONASE) 50 mcg/actuation nasal spray 48 g 11 Sig: instill 2 sprays into each nostril once daily ASIM 01/28/22 NOV 08/15/22 Please review and advise. Bryan Faustin LPN documented in this encounter [facility] 04-21-2022 History of Present illness Narrative Formatting of this note is different fro m the original. Anna Delcid PA-C Department of Orthopaedics Orthopaedics [address] [facility] [address] Dept: [phone] Dept April 21, 2022 CHIEF COMPLAINT: Established [...] all digits. Imaging: Deferred today. Ms. Lupis Brito was advised as to contrast therapies and/or [...] Antibiotics) This note was partially generated using [employer] voice recognition system, and there may be [...] having any pain. documented in this encounter [facility] 03-10-2022 Miscellaneous Notes Formatting of this note might be differe nt from the original. Patient notified and voiced understanding. Jeannie Pool MA Let patient know that bone density still shows osteoporosis however has improved. Continue prolia. Madison Mariee PA-C documented in this encounter [facility] 03-10-2022 Miscellaneous Notes Formatting of this note is different fro m the original. PDMP website checked and validated. All prescriptions have been APPROPRIATELY filled. No suspicious activity was identified. 03/10/2022 by Jesus Manuel Frey APRN.SNOW RANGER The following approved medication requests have been transmitted electronically. Requested Prescriptions Signed Prescriptions Disp Refills montelukast (SINGULAIR) 10 mg tablet 30 tablet 5 Sig: Take 1 tablet by mouth daily at bedtime. Authorizing Provider: TACOS HEIN Ordering User: JESUS MANUEL FREY meloxicam (MOBIC) 7.5 mg tablet 90 tablet 1 Sig: Take 1 tablet by mouth once daily. Authorizing Provider: TACOS HEIN Ordering User: JESUS MANUEL FREY gabapentin (NEURONTIN) 300 mg capsule 30 capsule 5 Sig: Take 1 capsule by mouth daily at bedtime for 180 days. Authorizing Provider: TACOS HEIN Ordering User: JESUS MANUEL FREY APRN.CNP Patient has been identified by [...] to pharmacy. No need to notify patient. Jeannie Pool MA Asim: 01/2022 Nov: 07/2022 Last refill: 08/2021 documented in this encounter [facility] 03-10-2022 History of Present illness Narrative Formatting of this note might be differe nt from the original. Radiology Service Progress Note PATIENT NAME: Lupis Brito DATE OF SERVICE: March 10, 2022 TIME: [...] 2022 9:32 AM documented in this encounter [facility] 02-28-2022 Miscellaneous Notes Surgery has been scheduled as requested. Patient scheduled for Right 5th finger excision ganglion cyst on 04/10/22. Surgical request completed. Post op appointment scheduled and mailed to patient. documented in this encounter [facility] 02-25-2022 Miscellaneous Notes Noted. Madison Mariee PA-C Call to pt and notified of message below. Verbalized understanding. Pt ate about 30 minutes before completing labs. Ruchi Domínguez Ma Let patient know that cholesterol Is high. LDL at 150 with goal of 100. Glucose was 103. Was she fasting? Rest of labs are normal. Watch diet. documented in this encounter [facility] 02-20-2022 History of Present illness Narrative Formatting of this note is different fro m the original. Patient presents with: Right Hand - New, Pain: 5th finger Jose A Burgess MD Department of Orthopaedics Orthopaedics [facility] [address] [facility] [address] Dept: [phone] Dept February 20, 2022 Consultation requested by Madison PIPER for an opinion regarding finger cyst. [...] FOLLOW UP INSTRUCTIONS: As above Ms. Lupis Brito was advised as to contrast therapies and/or to take analgesics/anti-inflammatories as needed and all contraindications were reviewed. OBJECTIVE: Ms. Lupis Brito is a pleasant 72 year old in [...] (no depression, anxiety) REFERRING PHYSICIAN: Ms. Lupis Brito was referred to me for consultation by the following physician. This consultation note will be sent to the following physician by either mail or electronic medical record. Madison Mariee [address] [facility] [id number] Tacos Hein MD [address] [facility] [address] Jose A Burgess MD documented in this encounter [facility] 01-28-2022 Instructions Madison Mariee PA-C - 01/28/2022 7:46 AM EDT BONE MINERAL DENSITY PATIENT INSTRUCTIONS Bone mineral density testing measures the amount [...] usual activities immediately. documented in this encounter [facility] 01-28-2022 History of Present illness Narrative Chief Complaint Patient presents with: F/U 6 Month HPI Lupis Brito is a 71 year old female who [...] supplements and weight bearing exercise as tolerated Madison Mariee PA-C documented in this encounter [facility] 01-14-2022 History of Present illness Narrative Patient presents for Prolia injection. Denies any problems at this time. Brought own medication. Patient instructed on any SE of medication, verbalized understanding and agreed to proceed with treatment. Tolerated injection well. Susanne West LPN documented in this encounter [facility] 12-17-2021 History of Present illness Narrative Chief Complaint Patient presents with: Derm Problem: cyst? on right fifth digit HPI Lupis Brito is a 71 year old female who [...] Could consider consult to ortho if worsening. Madison Mariee PA-C documented in this encounter [facility] 11-01-2021 History of Present illness Narrative POPULATION HEALTH NAVIGATION OUTREACH Action/FYI: [employer] Care Gaps Discuss/Due: Advance Directives, Colorectal Cancer Screening 01/23/22 or after Outcome: Left message on voice mail and sent [employer] message. Pt identified by name and : NO Outreach Outcome/Action Unable to reach patient: Left message [employer] message sent Reason for Outreach Care Gap or Scheduling/Wellness visits Payer: Payor: [employer] MEDICARE / Plan: [employer] MEDICARE PPO / Product Type: PPO / Care Gap Reviewed:: Colorectal Cancer Screening Reminder: Reminder note to check Health Maintenance for items below Health Maintenance items due: ADVANCE DIRECTIVE DISCUSSION Never done Message Sent to Practice: No Navigation Signature: Tess Acosta Population Health Navigator November 01, 2021 10:40 AM documented in this encounter [facility] 01-03-2008 History of Past i llness Narrative Problem Noted Date Resolved Date Acute gastritis without mention of hemorrhage 01/01/2015 Other bursitis disorders 08/20/2004 005 documented as of this encounter (statuses as of 11/01/2021) [facility] History of Past illness Narrative* Problem Noted Date Resolved Date Acute gastritis without mention of hemorrhage 01/01/2015 Other bursitis disorders 08/20/2004 005 documented as of this encounter (statuses as of 12/17/2021) [facility] of Past illness Narrative* Problem Noted Date Resolved Date Acute gastritis without mention of hemorrhage 01/01/2015 Other bursitis disorders 08/20/2004 005 documented as of this encounter (statuses as of 01/14/2022) [facility] History of Past illness Narrative* Problem Noted Date Resolved Date Acute gastritis without mention of hemorrhage 01/01/2015 Other bursitis disorders 08/20/2004 005 documented as of this encounter (statuses as of 01/28/2022) [facility] of Past illness Narrative* Problem Noted Date Resolved Date Acute gastritis without mention of hemorrhage 01/01/2015 Other bursitis disorders 08/20/2004 005 documented as of this encounter (statuses as of 02/25/2022) [facility] of [facility] Narrative* Problem Noted Date Resolved Date Acute gastritis without mention of hemorrhage 01/01/2015 Other bursitis disorders 08/20/2004 005 documented as of this encounter (statuses as of 02/28/2022) [facility] of Past illness Narrative* Problem Noted Date Resolved Date Acute gastritis without mention of hemorrhage 01/01/2015 Other bursitis disorders 08/20/2004 005 documented as of this encounter (statuses as of 03/04/2022) [facility] of [facility] illness Narrative* Problem Noted Date Resolved Date Acute gastritis without mention of hemorrhage 01/01/2015 Other bursitis disorders 08/20/2004 005 documented as of this encounter (statuses as of 03/10/2022) [facility] of [facility] illness Narrative* Problem Noted Date Resolved Date Acute gastritis without mention of hemorrhage 01/01/2015 Other bursitis disorders 08/20/2004 005 documented as of this encounter (statuses as of 03/10/2022) [facility] of [facility] Narrative* Problem Noted Date Resolved Date Acute gastritis without mention of hemorrhage 01/01/2015 Other bursitis disorders 08/20/2004 005 documented as of this encounter (statuses as of 03/11/2022) [facility] of [facility] Narrative* Problem Noted Date Resolved Date Acute gastritis without mention of hemorrhage 01/01/2015 Other bursitis disorders 08/20/2004 005 documented as of this encounter (statuses as of 04/21/2022) [facility] of [facility] Narrative* Problem Noted Date Resolved Date Acute gastritis without mention of hemorrhage 01/01/2015 Other bursitis disorders 08/20/2004 005 documented as of this encounter (statuses as of 06/07/2022) [facility] Narrative* Problem Noted Date Resolved Date Acute gastritis without mention of hemorrhage 01/01/2015 Other bursitis disorders 08/20/2004 005 documented as of this encounter (statuses as of 06/30/2022) [facility] Narrative* Problem Noted Date Resolved Date Acute gastritis without mention of hemorrhage 01/01/2015 Other bursitis disorders 08/20/2004 005 documented as of this encounter (statuses as of 07/02/2022) [facility] Narrative* Problem Noted Date Resolved Date Acute gastritis without mention of hemorrhage 01/01/2015 Other bursitis disorders 08/20/2004 005 documented as of this encounter (statuses as of 07/07/2022) [facility] Narrative* Problem Noted Date Resolved Date Acute gastritis without mention of hemorrhage 01/01/2015 Other bursitis disorders 08/20/2004 005 documented as of this encounter (statuses as of 07/07/2022) [facility] Narrative* Problem Noted Date Resolved Date Acute gastritis without mention of hemorrhage 01/01/2015 Other bursitis disorders 08/20/2004 005 documented as of this encounter (statuses as of 07/16/2022) [facility] Narrative* Problem Noted Date Resolved Date Acute gastritis without mention of hemorrhage 01/01/2015 Other bursitis disorders 08/20/2004 005 documented as of this encounter (statuses as of 07/30/2022) [facility] Narrative* Problem Noted Date Resolved Date Acute gastritis without mention of hemorrhage 01/01/2015 Other bursitis disorders 08/20/2004 005 documented as of this encounter (statuses as of 08/15/2022) [facility] Narrative* Problem Noted Date Resolved Date Acute gastritis without mention of hemorrhage 01/01/2015 Other bursitis disorders 08/20/2004 005 documented as of this encounter (statuses as of 08/20/2022) [facility] Narrative* Problem Noted Date Resolved Date Acute gastritis without mention of hemorrhage 01/01/2015 Other bursitis disorders 08/20/2004 005 documented as of this encounter (statuses as of 08/28/2022) [facility] Narrative* Problem Noted Date Resolved Date Acute gastritis without mention of hemorrhage 01/01/2015 Other bursitis disorders 08/20/2004 005 documented as of this encounter (statuses as of 09/12/2022) [facility] of [facility] Narrative* Problem Noted Date Resolved Date Acute gastritis without mention of hemorrhage 01/01/2015 Other bursitis disorders 08/20/2004 005 documented as of this encounter (statuses as of 12/26/2022) [facility] Narrative* Problem Noted Date Resolved Date Acute gastritis without mention of hemorrhage 01/01/2015 Other bursitis disorders 08/20/2004 005 documented as of this encounter (statuses as of 12/31/2022) [facility] Narrative* Problem Noted Date Resolved Date Acute gastritis without mention of hemorrhage 01/01/2015 Other bursitis disorders 08/20/2004 005 documented as of this encounter (statuses as of 01/29/2023) [facility] Narrative* Problem Noted Date Resolved Date Acute gastritis without mention of hemorrhage 01/01/2015 Other bursitis disorders 08/20/2004 005 documented as of this encounter (statuses as of 01/30/2023) [facility] of [facility] Narrative* Problem Noted Date Diagnosed Date Resolved Date Acute gastritis without mention of hemorrhage 01/03/20 08 01/01/2015 Other bursitis disorders 08/20/2004 documented as of this encounter (statuses as of 02/21/2023) [facility] Narrative* Problem Noted Date Diagnosed Date Resolved Date Acute gastritis without mention of hemorrhage 01/03/20 08 01/01/2015 Other bursitis disorders 08/20/2004 documented as of this encounter (statuses as of 03/19/2023) [facility] of [facility] Narrative* Problem Noted Date Diagnosed Date Resolved Date Acute gastritis without mention of hemorrhage 01/03/20 08 01/01/2015 Other bursitis disorders 08/20/2004 documented as of this encounter (statuses as of 03/19/2023) [facility] Narrative* Problem Noted Date Diagnosed Date Resolved Date Acute gastritis without mention of hemorrhage 01/03/20 08 01/01/2015 Other bursitis disorders 08/20/2004 documented as of this encounter (statuses as of 03/19/2023) [facility] Narrative* Problem Noted Date Diagnosed Date Resolved Date Acute gastritis without mention of hemorrhage 01/03/20 08 01/01/2015 Other bursitis disorders 08/20/2004 documented as of this encounter (statuses as of 03/26/2023) [address] History of Past illness Narrative* Problem Noted Date Diagnosed Date Resolved Date Acute gastritis without mention of hemorrhage 01/03/20 08 01/01/2015 Other bursitis disorders 08/20/2004 documented as of this encounter (statuses as of 04/13/2023) [facility] Narrative* Problem Noted Date Diagnosed Date Resolved Date Acute gastritis without mention of hemorrhage 01/03/20 08 01/01/2015 Other bursitis disorders 08/20/2004 documented as of this encounter (statuses as of 04/15/2023) [address] History of Past illness Narrative* Problem Noted Date Diagnosed Date Resolved Date Acute gastritis without mention of hemorrhage 01/03/20 08 01/01/2015 Other bursitis disorders 08/20/2004 documented as of this encounter (statuses as of 05/27/2023) [address] History of Past illness Narrative* Problem Noted Date Diagnosed Date Resolved Date Acute gastritis without mention of hemorrhage 01/03/20 08 01/01/2015 Other bursitis disorders 08/20/2004 documented as of this encounter (statuses as of 05/31/2023) [facility] History of Past illness Narrative* Problem Noted Date Diagnosed Date Resolved Date Acute gastritis without mention of hemorrhage 01/03/20 08 01/01/2015 Other bursitis disorders 08/20/2004 documented as of this encounter (statuses as of 09/08/2023) [facility] History of Past illness Narrative* Problem Noted Date Diagnosed Date Resolved Date Acute gastritis without mention of hemorrhage 01/03/20 08 01/01/2015 Other bursitis disorders 08/20/2004 documented as of this encounter (statuses as of 09/09/2023) [facility] History of Past illness Narrative* Problem Noted Date Diagnosed Date Resolved Date Acute gastritis without mention of hemorrhage 01/03/20 08 01/01/2015 Other bursitis disorders 08/20/2004 documented as of this encounter (statuses as of 09/18/2023) [facility] History of Past illness Narrative* Problem Noted Date Diagnosed Date Resolved Date Acute gastritis without mention of hemorrhage 01/03/20 08 01/01/2015 Other bursitis disorders 08/20/2004 documented as of this encounter (statuses as of 10/13/2023) [facility] History of Past illness Narrative* Problem Noted Date Diagnosed Date Resolved Date Acute gastritis without mention of hemorrhage 01/03/20 08 01/01/2015 Other bursitis disorders 08/20/2004 documented as of this encounter (statuses as of 10/29/2023) [facility] History of Past illness Narrative* Problem Noted Date Diagnosed Date Resolved Date Acute gastritis without mention of hemorrhage 01/03/20 08 01/01/2015 Other bursitis disorders 08/20/2004 documented as of this encounter (statuses as of 10/29/2023) [facility] History of Past illness Narrative* Problem Noted Date Diagnosed Date Resolved Date Acute gastritis without mention of hemorrhage 01/03/20 08 01/01/2015 Other bursitis disorders 08/20/2004 documented as of this encounter (statuses as of 11/06/2023) [facility] may be information available, but it has not been provided by the sender.[facility] Work Phone: Evaluation noteNo assessment information available [facility] Work Phone: Evaluation note* Diagnosis Fibromyalgia- Primary Mylagia and myositis, unspecified Seborrheic dermatitis of scalp Other seborrheic dermatitis Hand arthritis Unspecified arthropathy, hand Ganglion cyst Ganglion, unspecified [facility] Diagnosis Osteoporosis, unspecified osteoporosis type, unspecified pathological fracture presence- Primary [facility]* Diagnosis Dyslipidemia- Primary Other and unspecified [...] fracture Senile osteoporosis [facility] [place] [facility] Diagnosis Ganglion cyst of finger of right hand- Primary Ganglion cyst of finger of right hand [facility] [place] [facility]* Diagnosis Ganglion cyst Ganglion, unspecified Ganglion cyst of finger of right hand [facility] [place] [facility]* Diagnosis Osteoporosis, unspecified osteoporosis type, unspecified pathological fracture presence Ganglion cyst of finger of right hand [facility] [place] [facility]* Diagnosis Ganglion cyst of finger of right hand- Primary [facility] [place] [facility]* Diagnosis Osteoporosis, unspecified osteoporosis type, unspecified pathological fracture presence- Primary [facility] [place] [facility]* Diagnosis Ganglion cyst of finger of right hand- Primary [facility] [place] [facility]* Diagnosis Osteoporosis, unspecified osteoporosis type, unspecified pathological fracture presence [facility] [place] [facility]* Diagnosis Osteoporosis, unspecified osteoporosis type, unspecified pathological fracture presence- Primary [facility] [place] [facility]* Diagnosis Medicare annual wellness visit, subsequent- [...] Unspecified sinusitis (chronic) [facility] [place] [facility]* Diagnosis Leukocytosis, unspecified type- Primary [facility] [place] [facility]* Diagnosis Acute otitis media, left- Primary Unspecified otitis media URI, acute Acute upper respiratory infections of unspecified site [facility] [place] [facility]* Diagnosis Allergic reaction, initial encounter- Primary documented [facility] [place] [facility]* Diagnosis Osteoporosis, unspecified osteoporosis type, unspecified pathological fracture presence [facility] [place] [facility] Diagnosis Osteoporosis, unspecified osteoporosis type, unspecified pathological fracture presence [facility] [place] [facility]* Diagnosis Dyspnea, unspecified type- Primary documented in this encounter [facility] note* Diagnosis Mild persistent asthma without complication- Primary Unspecified asthma Deviated nasal septum History of seasonal allergies Other allergy, other than to medicinal agents [facility] [place] [facility]* Diagnosis Mild persistent asthma without complication- Primary Unspecified asthma Need for influenza vaccination Need for prophylactic vaccination and inoculation against influenza Deviated nasal septum History of seasonal allergies Other allergy, other than to medicinal agents [facility] [place] [facility]* Diagnosis Chronic sinusitis, unspecified location Chronic pansinusitis Other chronic sinusitis Mass of hard palate Swelling, mass, or lump in head and neck documented in this encounter [facility] note* Diagnosis Osteoporosis, unspecified osteoporosis type, unspecified pathological fracture presence- Primary documented in this encounter [facility] note* Diagnosis Osteoporosis, unspecified osteoporosis type, unspecified pathological fracture presence- Primary documented in this encounter [facility] note* Diagnosis Conjunctivitis of right eye, unspecified conjunctivitis type- Primary Rhinosinusitis Unspecified sinusitis (chronic) [facility] [place] [facility]* Diagnosis Mild intermittent asthma without complication- Primary Unspecified asthma Seasonal allergies Allergic rhinitis, cause unspecified documented in this encounter [facility] note* Diagnosis Osteoporosis, unspecified osteoporosis type, unspecified pathological fracture presence documented in this encounter [facility] note* Diagnosis Accelerated atrioventricular junctional rhythm- Primary Subclinical hypothyroidism Other specified acquired hypothyroidism Dyslipidemia Other and unspecified hyperlipidemia Medication management Encounter for long-term (current) use of other medications Vitamin D deficiency Unspecified vitamin D deficiency documented in this encounter [facility] note* Diagnosis Osteoporosis, unspecified osteoporosis type, unspecified pathological fracture presence- Primary [facility] [place] [facility]* Diagnosis Mild intermittent asthma without complication- Primary Unspecified asthma Hoarseness of voice Dysphonia documented in this encounter [facility] note* Diagnosis Medicare annual wellness visit, subsequent- Primary Routine general medical examination at a health care facility Dyslipidemia Other and unspecified hyperlipidemia Fibromyalgia Mylagia and myositis, unspecified Insomnia, unspecified type Restless leg syndrome Restless legs syndrome (RLS) Vitamin D deficiency Unspecified vitamin D deficiency Advance directive discussed with patient Other specified counseling Mild intermittent asthma without complication Unspecified asthma Osteoporosis, unspecified osteoporosis type, unspecified pathological fracture presence Numbness and tingling of both feet Encounter for screening examination for other mental health and behavioral disorders Screening for depression [facility] [place] [facility]* Diagnosis Peroneal neuropathy, unspecified laterality- Primary [facility] [place] [facility]* Diagnosis Neuropathy- Primary Mononeuritis of unspecified site Peroneal neuropathy, unspecified laterality documented in this encounter [facility] note* Diagnosis Osteoporosis, unspecified osteoporosis type, unspecified pathological fracture presence- Primary documented in this encounter [facility] note* Diagnosis Osteoporosis, unspecified osteoporosis type, unspecified pathological fracture presence documented in this encounter [facility] note* Diagnosis Osteoporosis, unspecified osteoporosis type, unspecified pathological fracture presence- Primary [facility] [place] [facility]* Diagnosis Gammopathy, monoclonal- Primary Monoclonal paraproteinemia documented [facility] this [facility] [place] [facility]* Diagnosis Osteoporosis, unspecified osteoporosis type, unspecified pathological fracture presence- Primary [facility] [place] [facility]* Diagnosis Radiculopathy, lumbosacral region- Primary Thoracic or lumbosacral neuritis or radiculitis, unspecified Neuropathy Mononeuritis of unspecified site Paresthesia of skin Disturbance of skin sensation documented [facility] [place] [facility]* Diagnosis Spinal stenosis of lumbar region without neurogenic claudication- Primary Spinal stenosis, lumbar region, without neurogenic claudication [facility] [place] [facility]* Diagnosis Spinal stenosis of lumbar region without neurogenic claudication Spinal stenosis, lumbar region, without neurogenic claudication [facility] this [facility] [place] [facility]* Diagnosis Increased immunoglobulin- Primary Other and unspecified nonspecific immunological findings [facility] [place] [facility]* Diagnosis Spinal stenosis of lumbar region without neurogenic claudication- Primary Spinal stenosis, lumbar region, without neurogenic claudication documented [facility] this [facility] [place] [facility]* Diagnosis Spinal stenosis of lumbar region without neurogenic claudication- Primary Spinal stenosis, lumbar region, without neurogenic claudication [facility] [place] [facility]* Diagnosis Spinal stenosis of lumbar region without neurogenic claudication- Primary Spinal stenosis, lumbar region, without neurogenic claudication [facility] Diagnosis SI (sacroiliac) pain- Primary Disorders of sacrum Greater trochanteric bursitis of right hip Enthesopathy of hip region Numbness and tingling of both feet documented [facility] [place] [facility]* Diagnosis Spinal stenosis of lumbar region without neurogenic claudication- Primary Spinal stenosis, lumbar region, without neurogenic claudication documented [facility] this [facility] [place] [facility]* Diagnosis Mild intermittent asthma without complication (HCC)- Primary Unspecified asthma documented [facility] [place] [facility]* Diagnosis Onset Date Resolution Status Admit Date Asthma chronic December 27, 2024 9:59am Dyslipidemia chronic December 27 9:59am Osteoporosis chronic December 27 9:59am Supraventricular tachycardia chronic December 27, 2024 9:59am [facility] Work Phone: Hospital Discharge instructions Additional Instructions We did speak with your primary care physician's office, you need to follow-up outpatient for stress test CHAD. [facility] any [facility] Work [facility]: Instructions* Instruction Description Start Date Completed [facility] Work Phone: Progress note Author Kailee Mcnair [facility] Note Date/Time December 27, 2024 10:43 am [facility] [address] [place] [address]. [address] [place] [address] OFFICE VISIT Date of Service: 12/27/24 MR#: [id number] Acct: [id number] Name: LUPIS BRITO Rep #: [id number] : 1950 Provider: Dr. Jeffry Mcnair MD Age/Sex: 74/F Location: [facility] Status: Signed HPI HPI History of Present Illness Details: This lady is here for evaluation and management of her recently diagnosed SVT. Patient complains of intermittent palpitations. She went to the emergency room with 1 6 long episode back in October of this year. She was noted to be in supraventricular tachycardia. This was successfully terminated with IV adenosine. Since then, patient has had event monitoring done. It showed runs of supraventricular tachycardia. Per patient, she occasionally feels lightheaded with her palpitations. No syncope or presyncope. Denies any chest pains or shortness of breath associatedwith these. Her last such episode was last week. According to her, it lasted about 10 to 15 minutes. Denies any history of chest pains or shortness of breath either at rest or with exertion. No orthopnea. No PND. No ankle edema. Denies illicit substance abuse. No EtOH abuse. No excessive caffeine intake. Denies being excessively hot or cold. Intake Vital Signs 11/15/24 09:02 12/26/24 07:42 12/27/24 07:32 Height 5 ft 4 in 5 ft 4 in 5 ft 4 in Weight: 130 lb BMI 22.3 BP 107/74 Blood Pressure Location Lt brachial Position Sitting Respiration 18 Pulse 72 Pulse Source NIBP Intake Visit Reasons: S/P [facility] 11/15 (SELF) Radiology Therapist Required: No Accompanied by: Is patient in pain?: Yes (7/10 back pain) Allergies clindamycin Allergy (Mild, Verified 12/26/24 07:30) Rash pollen extracts Allergy (Mild, Verified 12/26/24 07:30) Nasal Congestion doxycycline Adverse Reaction (Intermediate, Verified 12/26/24 07:30) Other alendronate sodium (From Fosamax) Adverse Reaction (Mild, Verified 12/26/24 07:30) Upset Stomach ibandronate sodium (From Boniva) Adverse Reaction (Mild, Verified 12/26/24 07:30) Upset Stomach mold Adverse Reaction (Mild, Verified 12/26/24 07:30) Nasal Congestion Penicillins Adverse Reaction (Mild, Verified 12/26/24 07:30) Nausea Sulfa (Sulfonamide Antibiotics) Adverse Reaction (Mild, Verified 12/26/24 07:30) Nausea Medications ?Medication ?Instructions ?Recorded ?Confirmed ?Type albuterol sulfate 90 mcg/actuation 2 puff inhalation Q 4H PRN 01/28/24 12/27/24 History aerosol inhaler shortness of breath or wheez ing denosumab 60 mg/mL subcutaneous 60 mg subcut .[id number] bone health 01/28/24 12/27/24 History syringe (Prolia) gabapentin 300 mg capsule 300 mg PO Q12H nerve pain 12/27/24 History meloxicam 7.5 mg tablet 7.5 mg PO DAILY pain 4 12/27/24 History montelukast 10 mg tablet 10 mg PO QHS allergies 01/2712/27/24 History beclomethasone dipropionate 40 2 inh inhalation BID 12/27/24 History mcg/actuation HFA breath activated aerosol (Qvar RediHaler) cyclosporine 0.05 % eye drops in a 1 drp ophthalmic (e ye) BID 11/15/24 12/27/24 History dropperette (Restasis) fluticasone propionate 50 2 spray intranasal DAILY 12/27/24 History mcg/actuation nasal spray,suspension L.acidoph,saliva-B.bif-S.therm PO DAILY 12/26/2412/27 History [Acidophilus Probiotic Blend] calcium carbonate (Calcium Antacid) 300 mg PO QDAY 09/2012/27/24 History folic acid 800 mcg tablet 0.8 mg PO QDAY 12/26/2410/18 History melatonin PO HS PRN 12/26/24 12/27/24 History multivitamin 1 tab PO QDAY 12/26/2412/27 History clindamycin HCl 300 mg capsule 300 mg PO TID 12/27/24 12/27/24 History prednisone 20 mg tablet mg PO 12/27/24 12/27/24 Hist ory tizanidine 2 mg tablet 2 - 4 mg PO Q6-8H PRN 12/27/24 History Ejection fraction %: 55 Have you fallen in the past year?: Yes (2 in the past month, related to back pain) [facility] Medical History (Updated 12/27/24 @ 10:[address] Kailee Mcnair MD) Numbness and tingling of both feet Mild intermittent asthma without complication History of deviated nasal septum Vitamin D deficiency Psoriasis of nail Allergic rhinitis Spinal stenosis of lumbar region with radiculopathy Restless leg syndrome Postmenopausal atrophic vaginitis Osteoporosis Lumbar degenerative disc disease Intrinsic asthma Insomnia Inflammatory arthritis Incidental lung nodule, less than or equal to 3mm Fibromyalgia Dyslipidemia Benign neoplasm of colon Acute gastritis without mention of hemorrhage Supraventricular tachycardia Accelerated atrioventricular junctional rhythm Chronic asthma Elevated troponin Chest pain Asthma Arthritis Surgical History History of excision of lesion Hx of section Hx of rhinoplasty Family History Mother Hypertension Hyperlipidemia Cancer Father Arrhythmia Social History Smoking Status: Never smoker Electronic Cigarette Use: not used alcohol intake: current details: occasional substance use type: does not use ROS Const Const: Positive for fatigue; Negative for weakness, headache(s) or weight gain ENT ENT: Positive for dizziness and balance problems (related to back); Negative for headache(s) or Nosebleed/epistaxis Cardio Chest Pain: Yes (discomfort with palpitations/SVT) Palpitations: Yes Edema: None Muscle aches with walking: None Resp Respiratory: Negative for SOB with activity, SOB at rest or SOB orthopneaundefinedSOB lying down GI GI: Negative nausea, vomiting or heartburn Musc Musc: Positive for balance problems (related to back); Negative for muscle aches/ myalgia, muscle weakness or joint pain Neuro Neuro: Positive for dizziness and lightheadedness (with palpitations/SVT); Negative for near syncope, syncope, headache(s) or weakness Endo Endo: Positive for fatigue Cardiology Exam Const Appearance: comfortable and no acute distress Nutritional Appearance: well nourished Neck Neck: no JVD Carotids: Negative bruit Chest Auscultation: Bilateral: Clear to Auscultation Cardio Rate: regular rate Rhythm: regular rhythm Heart sounds: S1 normal and S2 normal Neuro General: patient alert, patient awake and patient oriented x3 Extremities Lower Extremity Edema: None: Bilateral Supplemental Info Supplemental Information Echocardiogram 01/29/2024: Interpretation Summary Normal LV size. Left ventricular systolic function is normal. No regional wall motion abnormalities noted. The left ventricular ejection fraction is 55 %. Pulmonary artery systolic pressure is 26 mmHg. Structurally normal valves. Stress Echocardiogram 02/25/2007: Conclusions: Normal stress echo, negative for ischemia at 12'51 (15 METS), HR 173 (104% MPHR) Stress Test 08/11/2023: Exercise myocardial perfusion stress test. 73-year-old lady with a history of chest pain Stress protocol: Resting EKG demonstrates normal sinus rhythm with a rate of 75 bpm resting bloodpressure is 110/76 mmHg. The patient exercised according to the regular Natan protocol for a total duration of 8 minutes and 14 seconds attaining a maximum heart rate of 142 bpm which was 95% of maximum predicted heart rate; the maximumworkload was 10.1 metabolic equivalents. At rest there were no ST or T wave changes noted to suggest ischemia and at peak exercise upsloping ST changes onlywere noted which did not meet the criteria for ischemia. No clinical angina wasnoted the test was terminated due to the target heart rate being achieved/fatigue. The peak blood pressure was 148/84 mmHg. Rate-pressure product was 21,000. Conclusion: Normal sinus rhythm with no acute changes and no chest pain or EKG changes suggestive of ischemia 14-Day Cardiac Event Monitor 12/08/2024: Findings: Patient had a min HR of 44 bpm, max HR of 152 bpm, and abg HR of 73 bpm. Predominant underlying rhythm was Sinus RHythm. First Degree AV Block was present. 6 Supraventricular Tachycardia runs occurred, the run with the fastest interval lasting 42 mins 34 secs with a max rate of 152 bpm, the longest lasting1 hour 11 mins with an abg rate of 111 bpm. Isolated SVEs were rare (<1%). SVE Couplets were rare (<1%), and no SVE Triplets were present. Isolated VEs were rare (<1%), VE couplets were rare (<1%), and no VE Triplets were present. CT Chest w/Contrast 09/04/2024: Impression: 1. Small areas of atelectasis or scarring in the lingula and RIGHT middle lobe probable account for the abnormality on chest x-ray. 2. There is a 2mm noncalcified nodular density in the RIGHT midlung field. Assessment and Plan Assessment and Plan (1) Supraventricular tachycardia: Status: Chronic Plan: ECG in the office today shows normal sinus rhythm. Check echocardiogram. Check exercise stress test. TSH. Start on metoprolol extended release 25 mg once daily. Patient counseled that if she started feeling lightheaded or dizzy, to let us know. Refer to electrophysiology. (2) Asthma: Status: Chronic Plan: As per PCP/pulmonology. (3) Dyslipidemia: Status: Chronic Plan: Check lipid profile. (4) Osteoporosis: Status: Chronic Plan: As per PCP/rheumatology. Orders: Orders 12 Lead EKG performed by [facility] Today I47.10 - Supraventricular tachycardia, unspecified, I49.8 - Other specified cardiac arrhythmias, R07.9 - Chest pain, unspecified Plan Details Follow Up: 3 Months Coding Level of Care Code Off vis,new,level 4 Diagnoses Supraventricular tachycardia I47.10 Asthma J45.909 Dyslipidemia E78.5 Osteoporosis M81.0 Coding Level of Care Code Off vis,new,level 4 Diagnoses Supraventricular tachycardia I47.10 Asthma J45.909 Dyslipidemia E78.5 Osteoporosis M81.0 Clinical Quality Measures Falls Risk Screening/Assistive Devices Have you fallen in the past year?: Yes (2 in the past month, related to back pain) Cardiac Ejection fraction %: 55 12/27/24 1043 <Electronically signed by Kailee Mcnair MD> Date _ Kailee Mcnair MD Cosigner Signature: Date (if applicable) CC: Dr. Tacos Hien MD ~ [facility] Work Phone: [facility] for referral (narrative)* Outpatient Procedure (Routine) - Authorized Specialty Diagnoses / Procedures Referred By Neeraj t Referred To Contact [facility] Diagnoses Dyspnea, unspecified type Procedures SPIROMETRY WITH DILATOR IF OBSTRUCTED BRNCDILAT RSPSE SPMTRY PRE&POST-BRNCDILAT Alona Bills MD [address] [place] [address] Respiratory [place] [address] [place] [place] [id number] Referral ID Status Reason Start Date Expiration Date Visits Requested Visits Authorized [id number] Authorized Auto-Generat ed Referral 03/26/2023 04/24/2024 1 1 [facility] for referral (narrative)* Diagnostic Procedure Only (Routine) - Authorized Specialty Diagnoses / Procedures Referred By Contac t Referred To Contact XR IMAGING Diagnoses Osteoporosis, unspecified osteoporosis type, unspecified pathological fracture presence Procedures DXA-AXIAL SKELETON DXA BONE DENSITY STUDY 1/> SITES AXIAL Tacos Mcmanus MD [address] [place] [address] [place] [address] Referral ID Status Reason Start Date Expiration Date Visits Requested Visits Authorized [id number] Authorized Auto-Generat ed Referral 08/16/2024 09/15/2025 1 1 [facility] for referral (narrative)No reason for referral information availableW[facility] Work Phone: Refsyz for visit Narrative* Diagnostic Procedure Only (Routine) - Closed Specialty Diagnoses / Procedures Referred By Contac t Referred To Contact XR IMAGING Diagnoses Osteoporosis, unspecified osteoporosis type, unspecified pathological fracture presence Procedures DXA-AXIAL SKELETON DXA BONE DENSITY STUDY 1/> SITES AXIAL Tacos Mcmanus MD [address] [place] [address] Phone: tel: fax: [place] [address] Referral ID Status Reason Start Date Expiration Date V isits Requested Visits Authorized [id number] Closed Auto-Generate d Referral 08/16/2024 09/15/2025 1 1 [facility] for visit Narrative* MRI/CT (Routine) - Closed Specialty Diagnoses / Procedures Referred By Contac t Referred To Contact MR IMAGING Diagnoses Spinal stenosis of lumbar region without neurogenic claudication Procedures MRI LUMBAR SPINE WO IVCON MRI SPINAL CANAL LUMBAR W/O CONTRAST MATERIAL Rody Pablo PA-C [address] [place] [address] Phone: tel: fax: [place] [address] Referral ID Status Reason Start Date Expiration Date V isits Requested Visits Authorized [id number] Closed Auto-Generate d Referral 10/07/2024 11/06/2025 1 1 [facility] Chief Complaint Chief Complaint Description Start Date lower back pain Preliminary chief co mplaint data, not yet signed by the author as of Advance Directives No Advanced Directives Records Found Advance Directive Response Recorded Date/ Time Living Will Yes August 03 2:15pm Power of Child Care Nurse Yes August 03, 2 024 2:15pm Name of Medical Power of Child Care Nurse SPOUSE August 03, 2023 2:15pm Advance Directive Response Recorded Date/ Time Name of Medical Power of Child Care Nurse SPOUSE August 03, 2023 2:15pm Living Will Yes August 03 2:15pm Power of Child Care Nurse Yes August 03, 2 024 2:15pm Advance Directive Response Recorded Date/ Time Do you have a Healthcare Power of Child Care Nurse? No November 15, 2024 9:02am Family History No Family History Records Found Relationship Condition Age at Onset Recorded Date/T jayda mother Hypertension Unknown Hyperlipidemia Unknown Malignant neoplasm Unknown father Cardiac arrhythmia Unknown Chief Complaint and Reason for Visit Chief Complaint SP LUMBAR STENOSIS/RX HERE Chief Complaint Radiculopathy, lumbo sacral region/RX HERE Chief Complaint CHEST PAIN Chief Complaint CHEST PAIN I20.0 Unstable angina I20.0 Unstable angina Chief Complaint Admit Date BLE; PARETHESIA/ANESTHESIA August 31, 2024 8:22am BLE; PARETHESIA/ANESTHESIA August 31, 2024 2:30pm PALPATIONS November 15, 2024 9:0 2am Chief Complaint Admit Date BLE; PARETHESIA/ANESTHESIA August 31, 2024 8:22am BLE; PARETHESIA/ANESTHESIA August 31, 2024 2:30pm PALPATIONS November 15, 2024 9:0 2am S/P [facility] 11/15 (SELF) December 27, 2024 9:59 am Reason for Visit Admit Date Asthma December 27, 2024 9:59a m Dyslipidemia December 27, 2024 9:59a m Osteoporosis December 27, 2024 9:59a m Supraventricular tachycardia December 27, 025 9:59am Medications Administered Section Inactive Administered Medications - up to 3 most recent administrations Medication Order MAR Action Action Date Dose Rate Site denosumab 60 mg injection (PROLIA) 60 mg, SUBCUTANEOUS, EVERY 6 MONTHS, 2 doses, First dose on Thu02/07/21 at 0000, Last dose on Thu08/06/21 at 0000, Allow To Come To Room Temperature Before Administration. REFRIGERATE Given 01/14/2022 10:49 AM EDT 60 mg Arm, Left Given 02/07/2021 1:21 PM EDT 60 mg Ar m, Left Active Administered Medications - up to [...] 10:06 AM EDT 60 mg Arm, Right Given 07/16/2022 9:47 AM EST 60 mg Ar m, Right Reason for Referral Specialty Diagnoses / Procedures Referred By Contac t Referred To Contact Orthopedics Diagnoses Ganglion cyst Procedures CONSULT TO ORTHOPAEDICS OFFICE/OUTPATIENT [facility] 60-74 MINUTES Madison Mariee PA-C [address] [place] [address] Referral ID Status Reason Start Date Expiration Date Visits Requested Visits Authorized [id number] Pending Review PCP Requested Referral 01/28/2022 01/28/2023 1 1 Specialty Diagnoses / Procedures Referred By Contac t Referred To Contact Ent - Otolaryngology Diagnoses Deviated nasal septum Procedures CONSULT TO ENT Alona Cruz MD [address] [place] [address] Edi Bell [address] [place] [address] Referral ID Status Reason Start Date Expiration Date Visits Requested Visits Authorized [id number] Ref Not Required PCP Requested Referral 04/13/2023 04/12/2024 1 1 Specialty Diagnoses / Procedures Referred By Contac t Referred To Contact CT IMAGING Diagnoses Chronic sinusitis, unspecified location Chronic pansinusitis Mass of hard palate Procedures CT SINUS WO IVCON CT MAXILLOFACIAL W/O CONTRAST MATERIAL Madison Mariee PA-C [address] [place] [address] Ct Imaging [facility] Referral ID Status Reason Start Date Expiration Date V isits Requested Visits Authorized [id number] Closed Auto-Generate d Referral 02/12/2023 03/13/2024 1 1 Specialty Diagnoses / Procedures Referred By Contac t Referred To Contact Neurology Diagnoses Peroneal neuropathy, unspecified laterality Procedures CONSULT TO NEUROLOGY OFFICE/OUTPATIENT [facility] 60 MINUTES Tacos Hein MD [address] [place] [address] Referral ID Status Reason Start Date Expiration Date Visits Requested Visits Authorized [id number] Authorized PCP Requested Referral 09/01/2024 09/01/2025 1 1 Summary Purpose Additional Source Comments Reason for Visit (unrecogniz ed section and content) Reason Comments PT Discharge Specialty Diagnoses / Procedures Referred By Contac t Referred To Contact [facility] Diagnoses Spinal stenosis of lumbar region without neurogenic claudication Procedures CONSULT TO PHYSICAL THERAPY PHYSICAL THERAPY EVALUATION HIGH COMPLEX 45 MINS Rody Pablo PA-C [address] [place] [address] Phone: tel: fax: [facility] [address] [place] [address] Referral ID Status Reason Start Date Expiration Date Visits Requested Visits Authorized [id number] Authorized Auto-Generat ed Referral 07/27/2024 07/26/2025 99 99 Reason Comments PT Progress Note Reason Comments Physical Therapy Reason Comments Appointment Cancelled Reason Comments Imm/Inj Specialty Diagnoses / Procedures Referred By Contac t Referred To Contact Internal Medicine / FAMILY MEDICINE Diagnoses Prolia injection - please see note patient should be expecting by 09/15. Procedures NURSE Tacos Hein MD [address] [place] [address] [facility] [address] [place] [address] Referral ID Status Reason Start Date Expiration Date Visits Re quested Visits Authorized [id number] Closed 09/18/2023 09/18/2023 1 1 Reason For Visit Description Start Date Test Result Preliminary reason f or visit data, not yet signed by the author as of lower back pain Reason Onset Date Comments Population [facility] Navigation Outreach 11/01/2021 [employer] Care Gaps Reason Comments Derm Problem cyst? on right fifth digit Reason Comments F/U 6 Month Reason Comments Results Reason Comments Schedule Surgery Reason Comments New 5th finger Pain 5th finger Specialty Diagnoses / Procedures Referred By Neeraj frias Referred To Contact Orthopedics Diagnoses Ganglion cyst Procedures CONSULT TO ORTHOPAEDICS OFFICE/OUTPATIENT NEW HIGH MDM 60-74 MINUTES Madison Mariee PA-C [address] [place] [address] Referral ID Status Reason Start Date Expiration Date Visits Requested Visits Authorized [id number] Pending Review PCP Requested Referral 01/28/2022 01/28/2023 [...] Reason Comments Symptoms Reason Onset Date Comments [facility] Outreach 09/12/2022 [employer] Care Gaps Reason Comments Release Of Medical Records Reason Comments Cough Chest congestion x 3 days Reason Comments Rash Rash on face x [...] WO IVCON CT MAXILLOFACIAL W/O CONTRAST MATERIAL Madison Mariee PA-C [address] [place] [address] [place] [address] Referral ID Status Reason Start Date Expiration Date V isits Requested Visits Authorized [id number] Closed Auto-Generate d Referral 02/12/2023 03/13/2024 1 1 Reason Comments Eye Problem Red irritated right eye x 2 days Reason Comments Established Patient 6 month follow up Reason Onset Date Comments Refill Request 02/08/2024 Reason Comments Hospital Follow Up Reason Onset Date Comments Refill Request 03/05/2024 Reason Onset Date Comments Refill Request 03/09/2024 Reason Onset Date Comments Refill Request 04/03/2024 Reason Onset Date Comments Refill Request 05/11/2024 Reason Onset Date Comments Refill Request 05/31/2024 Reason Onset Date Comments Refill Request 06/04/2024 Reason Onset Date Comments Refill Request 06/28/2024 Reason Comments Established Patient 6 month follow up as thma Asthma Reason Comments Medicare Wellness Exam Reason Onset Date Comments Refill Request 08/22/2024 Reason Comments Appointment Reason Comments Results EM[facility] Reason Comments New Patient Peroneal Neuropathy Specialty Diagnoses / Procedures Referred By Contac t Referred To Contact Neurology Diagnoses Peroneal neuropathy, unspecified laterality Procedures CONSULT TO NEUROLOGY OFFICE/OUTPATIENT [facility] 60 MINUTES Tacos Hein MD [address] [place] [address] Phone: tel: fax: Referral ID Status Reason Start Date Expiration Date V isits Requested Visits Authorized [id number] Closed PCP Requested Referral 09/01/2024 09/01/2025 1 1 Reason Onset Date Comments Refill Request 09/23/2024 Reason Comments New Patient Evaluation Specialty Diagnoses / Procedures Referred By Contac t Referred To Contact Diagnoses Gammopathy, monoclonal Procedures CONSULT TO HEMATOLOGY/ONCOLOGY OFFICE/OUTPATIENT [facility] 60 MINUTES Rody Pablo PA-C [address] [place] [address] Phone: tel: fax: Referral ID Status Reason Start Date Expiration Date V isits Requested Visits Authorized [id number] Closed PCP Requested Referral 09/23/2024 09/23/2025 1 1 Reason Onset Date Comments EMG 10/07/2024 Specialty Diagnoses / Procedures Referred By Contac t Referred To Contact [facility] Diagnoses Neuropathy Procedures [facility](NEURO/NI) NERVE CONDUCTION STUDIES 9-10 STUDIES Rody Pablo PA-C [address] [place] [address] Phone: tel: fax: Neurology [address] [place] [address] Phone: tel: Referral ID Status Reason Start Date Expiration Date V isits Requested Visits Authorized [id number] Closed Auto-Generate d Referral 09/27/2024 07/26/2025 1 1 Reason Onset Date Comments Results 10/07/2024 Reason Comments Established Patient Reason Comments PT Eval Reason Onset Date Comments Refill Request 11/10/2024 Reason Comments [facility] f/u Reason Onset Date Comments Results 12/11/2024 Reason Comments Hospital F/U Reason Comments Outside Cardiology Source Comments (unrecognize d section and content) In the event this informatio n is protected by the Federal Confidentiality of Alcohol and Drug Abuse Patient Records regulations: The Federal rules restrict any use of the information to criminally investigate or prosecute any alcohol or drug abuse patient.[facility] the event this information is protected by the Federal Confidentiality of Alcohol and Drug Abuse Patient Records regulations: The Federal rules restrict any use of the information to criminally investigate or prosecute any alcohol or drug abuse patient.[facility] HospitalIn the event this information is protected by the Federal Confidentiality of Alcohol and Drug Abuse Patient Records regulations: The Federal rules restrict any use of the information to criminally investigate or prosecute any alcohol or drug abuse patient.[facility] HospitalIn the event this information is protected by the Federal Confidentiality of Alcohol and Drug Abuse Patient Records regulations: The Federal rules restrict any use of the information to criminally investigate or prosecute any alcohol or drug abuse patient.[facility] HospitalIn the event this information is protected by the Federal Confidentiality of Alcohol and Drug Abuse Patient Records regulations: The Federal rules restrict any use of the information to criminally investigate or prosecute any alcohol or drug abuse patient.[facility] HospitalIn the event this information is protected by the Federal Confidentiality of Alcohol and Drug Abuse Patient Records regulations: The Federal rules restrict any use of the information to criminally investigate or prosecute any alcohol or drug abuse patient.[facility] HospitalIn the event this information is protected by the Federal Confidentiality of Alcohol and Drug Abuse Patient Records regulations: The Federal rules restrict any use of the information to criminally investigate or prosecute any alcohol or drug abuse patient.[facility] HospitalIn the event this information is protected by the Federal Confidentiality of Alcohol and Drug Abuse Patient Records regulations: The Federal rules restrict any use of the information to criminally investigate or prosecute any alcohol or drug abuse patient.[facility] HospitalIn the event this information is protected by the Federal Confidentiality of Alcohol and Drug Abuse Patient Records regulations: The Federal rules restrict any use of the information to criminally investigate or prosecute any alcohol or drug abuse patient.[facility] HospitalIn the event this information is protected by the Federal Confidentiality of Alcohol and Drug Abuse Patient Records regulations: The Federal rules restrict any use of the information to criminally investigate or prosecute any alcohol or drug abuse patient.[facility] HospitalIn the event this information is protected by the Federal Confidentiality of Alcohol and Drug Abuse Patient Records regulations: The Federal rules restrict any use of the information to criminally investigate or prosecute any alcohol or drug abuse patient.[facility] HospitalIn the event this information is protected by the Federal Confidentiality of Alcohol and Drug Abuse Patient Records regulations: The Federal rules restrict any use of the information to criminally investigate or prosecute any alcohol or drug abuse patient.[facility] HospitalIn the event this information is protected by the Federal Confidentiality of Alcohol and Drug Abuse Patient Records regulations: The Federal rules restrict any use of the information to criminally investigate or prosecute any alcohol or drug abuse patient.[facility] HospitalIn the event this information is protected by the Federal Confidentiality of Alcohol and Drug Abuse Patient Records regulations: The Federal rules restrict any use of the information to criminally investigate or prosecute any alcohol or drug abuse patient.[facility] HospitalIn the event this information is protected by the Federal Confidentiality of Alcohol and Drug Abuse Patient Records regulations: The Federal rules restrict any use of the information to criminally investigate or prosecute any alcohol or drug abuse patient.[facility] HospitalIn the event this information is protected by the Federal Confidentiality of Alcohol and Drug Abuse Patient Records regulations: The Federal rules restrict any use of the information to criminally investigate or prosecute any alcohol or drug abuse patient.[facility] HospitalIn the event this information is protected by the Federal Confidentiality of Alcohol and Drug Abuse Patient Records regulations: The Federal rules restrict any use of the information to criminally investigate or prosecute any alcohol or drug abuse patient.[facility] HospitalIn the event this information is protected by the Federal Confidentiality of Alcohol and Drug Abuse Patient Records regulations: The Federal rules restrict any use of the information to criminally investigate or prosecute any alcohol or drug abuse patient.[facility] HospitalIn the event this information is protected by the Federal Confidentiality of Alcohol and Drug Abuse Patient Records regulations: The Federal rules restrict any use of the information to criminally investigate or prosecute any alcohol or drug abuse patient.[facility] HospitalIn the event this information is protected by the Federal Confidentiality of Alcohol and Drug Abuse Patient Records regulations: The Federal rules restrict any use of the information to criminally investigate or prosecute any alcohol or drug abuse patient.[facility] HospitalIn the event this information is protected by the Federal Confidentiality of Alcohol and Drug Abuse Patient Records regulations: The Federal rules restrict any use of the information to criminally investigate or prosecute any alcohol or drug abuse patient.[facility] HospitalIn the event this information is protected by the Federal Confidentiality of Alcohol and Drug Abuse Patient Records regulations: The Federal rules restrict any use of the information to criminally investigate or prosecute any alcohol or drug abuse patient.[facility] HospitalIn the event this information is protected by the Federal Confidentiality of Alcohol and Drug Abuse Patient Records regulations: The Federal rules restrict any use of the information to criminally investigate or prosecute any alcohol or drug abuse patient.[facility] HospitalIn the event this information is protected by the Federal Confidentiality of Alcohol and Drug Abuse Patient Records regulations: The Federal rules restrict any use of the information to criminally investigate or prosecute any alcohol or drug abuse patient.[facility] HospitalIn the event this information is protected by the Federal Confidentiality of Alcohol and Drug Abuse Patient Records regulations: The Federal rules restrict any use of the information to criminally investigate or prosecute any alcohol or drug abuse patient.[facility] HospitalIn the event this information is protected by the Federal Confidentiality of Alcohol and Drug Abuse Patient Records regulations: The Federal rules restrict any use of the information to criminally investigate or prosecute any alcohol or drug abuse patient.[facility] HospitalIn the event this information is protected by the Federal Confidentiality of Alcohol and Drug Abuse Patient Records regulations: The Federal rules restrict any use of the information to criminally investigate or prosecute any alcohol or drug abuse patient.[facility] HospitalIn the event this information is protected by the Federal Confidentiality of Alcohol and Drug Abuse Patient Records regulations: The Federal rules restrict any use of the information to criminally investigate or prosecute any alcohol or drug abuse patient.[facility] HospitalIn the event this information is protected by the Federal Confidentiality of Alcohol and Drug Abuse Patient Records regulations: The Federal rules restrict any use of the information to criminally investigate or prosecute any alcohol or drug abuse patient.[facility] HospitalIn the event this information is protected by the Federal Confidentiality of Alcohol and Drug Abuse Patient Records regulations: The Federal rules restrict any use of the information to criminally investigate or prosecute any alcohol or drug abuse patient.[facility] HospitalIn the event this information is protected by the Federal Confidentiality of Alcohol and Drug Abuse Patient Records regulations: The Federal rules restrict any use of the information to criminally investigate or prosecute any alcohol or drug abuse patient.[facility] HospitalIn the event this information is protected by the Federal Confidentiality of Alcohol and Drug Abuse Patient Records regulations: The Federal rules restrict any use of the information to criminally investigate or prosecute any alcohol or drug abuse patient.[facility] HospitalIn the event this information is protected by the Federal Confidentiality of Alcohol and Drug Abuse Patient Records regulations: The Federal rules restrict any use of the information to criminally investigate or prosecute any alcohol or drug abuse patient.[facility] HospitalIn the event this information is protected by the Federal Confidentiality of Alcohol and Drug Abuse Patient Records regulations: The Federal rules restrict any use of the information to criminally investigate or prosecute any alcohol or drug abuse patient.[facility] HospitalIn the event this information is protected by the Federal Confidentiality of Alcohol and Drug Abuse Patient Records regulations: The Federal rules restrict any use of the information to criminally investigate or prosecute any alcohol or drug abuse patient.[facility] HospitalIn the event this information is protected by the Federal Confidentiality of Alcohol and Drug Abuse Patient Records regulations: The Federal rules restrict any use of the information to criminally investigate or prosecute any alcohol or drug abuse patient.[facility] HospitalIn the event this information is protected by the Federal Confidentiality of Alcohol and Drug Abuse Patient Records regulations: The Federal rules restrict any use of the information to criminally investigate or prosecute any alcohol or drug abuse patient.[facility] HospitalIn the event this information is protected by the Federal Confidentiality of Alcohol and Drug Abuse Patient Records regulations: The Federal rules restrict any use of the information to criminally investigate or prosecute any alcohol or drug abuse patient.[facility] HospitalIn the event this information is protected by the Federal Confidentiality of Alcohol and Drug Abuse Patient Records regulations: The Federal rules restrict any use of the information to criminally investigate or prosecute any alcohol or drug abuse patient.[facility] HospitalIn the event this information is protected by the Federal Confidentiality of Alcohol and Drug Abuse Patient Records regulations: The Federal rules restrict any use of the information to criminally investigate or prosecute any alcohol or drug abuse patient.[facility] HospitalIn the event this information is protected by the Federal Confidentiality of Alcohol and Drug Abuse Patient Records regulations: The Federal rules restrict any use of the information to criminally investigate or prosecute any alcohol or drug abuse patient.[facility] HospitalIn the event this information is protected by the Federal Confidentiality of Alcohol and Drug Abuse Patient Records regulations: The Federal rules restrict any use of the information to criminally investigate or prosecute any alcohol or drug abuse patient.[facility] HospitalIn the event this information is protected by the Federal Confidentiality of Alcohol and Drug Abuse Patient Records regulations: The Federal rules restrict any use of the information to criminally investigate or prosecute any alcohol or drug abuse patient.[facility] HospitalIn the event this information is protected by the Federal Confidentiality of Alcohol and Drug Abuse Patient Records regulations: The Federal rules restrict any use of the information to criminally investigate or prosecute any alcohol or drug abuse patient.[facility] HospitalIn the event this information is protected by the Federal Confidentiality of Alcohol and Drug Abuse Patient Records regulations: The Federal rules restrict any use of the information to criminally investigate or prosecute any alcohol or drug abuse patient.[facility] HospitalIn the event this information is protected by the Federal Confidentiality of Alcohol and Drug Abuse Patient Records regulations: The Federal rules restrict any use of the information to criminally investigate or prosecute any alcohol or drug abuse patient.[facility] HospitalIn the event this information is protected by the Federal Confidentiality of Alcohol and Drug Abuse Patient Records regulations: The Federal rules restrict any use of the information to criminally investigate or prosecute any alcohol or drug abuse patient.[facility] HospitalIn the event this information is protected by the Federal Confidentiality of Alcohol and Drug Abuse Patient Records regulations: The Federal rules restrict any use of the information to criminally investigate or prosecute any alcohol or drug abuse patient.[facility] HospitalIn the event this information is protected by the Federal Confidentiality of Alcohol and Drug Abuse Patient Records regulations: The Federal rules restrict any use of the information to criminally investigate or prosecute any alcohol or drug abuse patient.[facility] HospitalIn the event this information is protected by the Federal Confidentiality of Alcohol and Drug Abuse Patient Records regulations: The Federal rules restrict any use of the information to criminally investigate or prosecute any alcohol or drug abuse patient.[facility] HospitalIn the event this information is protected by the Federal Confidentiality of Alcohol and Drug Abuse Patient Records regulations: The Federal rules restrict any use of the information to criminally investigate or prosecute any alcohol or drug abuse patient.[facility] HospitalIn the event this information is protected by the Federal Confidentiality of Alcohol and Drug Abuse Patient Records regulations: The Federal rules restrict any use of the information to criminally investigate or prosecute any alcohol or drug abuse patient.[facility] HospitalIn the event this information is protected by the Federal Confidentiality of Alcohol and Drug Abuse Patient Records regulations: The Federal rules restrict any use of the information to criminally investigate or prosecute any alcohol or drug abuse patient.[facility] HospitalIn the event this information is protected by the Federal Confidentiality of Alcohol and Drug Abuse Patient Records regulations: The Federal rules restrict any use of the information to criminally investigate or prosecute any alcohol or drug abuse patient.[facility] HospitalIn the event this information is protected by the Federal Confidentiality of Alcohol and Drug Abuse Patient Records regulations: The Federal rules restrict any use of the information to criminally investigate or prosecute any alcohol or drug abuse patient.[facility] HospitalIn the event this information is protected by the Federal Confidentiality of Alcohol and Drug Abuse Patient Records regulations: The Federal rules restrict any use of the information to criminally investigate or prosecute any alcohol or drug abuse patient.[facility] HospitalIn the event this information is protected by the Federal Confidentiality of Alcohol and Drug Abuse Patient Records regulations: The Federal rules restrict any use of the information to criminally investigate or prosecute any alcohol or drug abuse patient.[facility] HospitalIn the event this information is protected by the Federal Confidentiality of Alcohol and Drug Abuse Patient Records regulations: The Federal rules restrict any use of the information to criminally investigate or prosecute any alcohol or drug abuse patient.[facility] HospitalIn the event this information is protected by the Federal Confidentiality of Alcohol and Drug Abuse Patient Records regulations: The Federal rules restrict any use of the information to criminally investigate or prosecute any alcohol or drug abuse patient.[facility] HospitalIn the event this information is protected by the Federal Confidentiality of Alcohol and Drug Abuse Patient Records regulations: The Federal rules restrict any use of the information to criminally investigate or prosecute any alcohol or drug abuse patient.[facility] HospitalIn the event this information is protected by the Federal Confidentiality of Alcohol and Drug Abuse Patient Records regulations: The Federal rules restrict any use of the information to criminally investigate or prosecute any alcohol or drug abuse patient.[facility] HospitalIn the event this information is protected by the Federal Confidentiality of Alcohol and Drug Abuse Patient Records regulations: The Federal rules restrict any use of the information to criminally investigate or prosecute any alcohol or drug abuse patient.[facility] HospitalIn the event this information is protected by the Federal Confidentiality of Alcohol and Drug Abuse Patient Records regulations: The Federal rules restrict any use of the information to criminally investigate or prosecute any alcohol or drug abuse patient.[facility] HospitalIn the event this information is protected by the Federal Confidentiality of Alcohol and Drug Abuse Patient Records regulations: The Federal rules restrict any use of the information to criminally investigate or prosecute any alcohol or drug abuse patient.[facility] HospitalIn the event this information is protected by the Federal Confidentiality of Alcohol and Drug Abuse Patient Records regulations: The Federal rules restrict any use of the information to criminally investigate or prosecute any alcohol or drug abuse patient.[facility] HospitalIn the event this information is protected by the Federal Confidentiality of Alcohol and Drug Abuse Patient Records regulations: The Federal rules restrict any use of the information to criminally investigate or prosecute any alcohol or drug abuse patient.[facility] HospitalIn the event this information is protected by the Federal Confidentiality of Alcohol and Drug Abuse Patient Records regulations: The Federal rules restrict any use of the information to criminally investigate or prosecute any alcohol or drug abuse patient.[facility] HospitalIn the event this information is protected by the Federal Confidentiality of Alcohol and Drug Abuse Patient Records regulations: The Federal rules restrict any use of the information to criminally investigate or prosecute any alcohol or drug abuse patient.[facility] HospitalIn the event this information is protected by the Federal Confidentiality of Alcohol and Drug Abuse Patient Records regulations: The Federal rules restrict any use of the information to criminally investigate or prosecute any alcohol or drug abuse patient.[facility] HospitalIn the event this information is protected by the Federal Confidentiality of Alcohol and Drug Abuse Patient Records regulations: The Federal rules restrict any use of the information to criminally investigate or prosecute any alcohol or drug abuse patient.[facility] HospitalIn the event this information is protected by the Federal Confidentiality of Alcohol and Drug Abuse Patient Records regulations: The Federal rules restrict any use of the information to criminally investigate or prosecute any alcohol or drug abuse patient.[facility] HospitalIn the event this information is protected by the Federal Confidentiality of Alcohol and Drug Abuse Patient Records regulations: The Federal rules restrict any use of the information to criminally investigate or prosecute any alcohol or drug abuse patient.[facility] HospitalIn the event this information is protected by the Federal Confidentiality of Alcohol and Drug Abuse Patient Records regulations: The Federal rules restrict any use of the information to criminally investigate or prosecute any alcohol or drug abuse patient.[facility] HospitalIn the event this information is protected by the Federal Confidentiality of Alcohol and Drug Abuse Patient Records regulations: The Federal rules restrict any use of the information to criminally investigate or prosecute any alcohol or drug abuse patient.[facility] HospitalIn the event this information is protected by the Federal Confidentiality of Alcohol and Drug Abuse Patient Records regulations: The Federal rules restrict any use of the information to criminally investigate or prosecute any alcohol or drug abuse patient.[facility] HospitalIn the event this information is protected by the Federal Confidentiality of Alcohol and Drug Abuse Patient Records regulations: The Federal rules restrict any use of the information to criminally investigate or prosecute any alcohol or drug abuse patient.[facility] HospitalIn the event this information is protected by the Federal Confidentiality of Alcohol and Drug Abuse Patient Records regulations: The Federal rules restrict any use of the information to criminally investigate or prosecute any alcohol or drug abuse patient.[facility] HospitalIn the event this information is protected by the Federal Confidentiality of Alcohol and Drug Abuse Patient Records regulations: The Federal rules restrict any use of the information to criminally investigate or prosecute any alcohol or drug abuse patient.[facility] HospitalIn the event this information is protected by the Federal Confidentiality of Alcohol and Drug Abuse Patient Records regulations: The Federal rules restrict any use of the information to criminally investigate or prosecute any alcohol or drug abuse patient.[facility] HospitalIn the event this information is protected by the Federal Confidentiality of Alcohol and Drug Abuse Patient Records regulations: The Federal rules restrict any use of the information to criminally investigate or prosecute any alcohol or drug abuse patient.[facility] HospitalIn the event this information is protected by the Federal Confidentiality of Alcohol and Drug Abuse Patient Records regulations: The Federal rules restrict any use of the information to criminally investigate or prosecute any alcohol or drug abuse patient.[facility] HospitalIn the event this information is protected by the Federal Confidentiality of Alcohol and Drug Abuse Patient Records regulations: The Federal rules restrict any use of the information to criminally investigate or prosecute any alcohol or drug abuse patient.[facility] HospitalIn the event this information is protected by the Federal Confidentiality of Alcohol and Drug Abuse Patient Records regulations: The Federal rules restrict any use of the information to criminally investigate or prosecute any alcohol or drug abuse patient.[facility] HospitalIn the event this information is protected by the Federal Confidentiality of Alcohol and Drug Abuse Patient Records regulations: The Federal rules restrict any use of the information to criminally investigate or prosecute any alcohol or drug abuse patient.[facility] HospitalIn the event this information is protected by the Federal Confidentiality of Alcohol and Drug Abuse Patient Records regulations: The Federal rules restrict any use of the information to criminally investigate or prosecute any alcohol or drug abuse patient.[facility] HospitalIn the event this information is protected by the Federal Confidentiality of Alcohol and Drug Abuse Patient Records regulations: The Federal rules restrict any use of the information to criminally investigate or prosecute any alcohol or drug abuse patient.[facility] HospitalIn the event this information is protected by the Federal Confidentiality of Alcohol and Drug Abuse Patient Records regulations: The Federal rules restrict any use of the information to criminally investigate or prosecute any alcohol or drug abuse patient.[facility] HospitalIn the event this information is protected by the Federal Confidentiality of Alcohol and Drug Abuse Patient Records regulations: The Federal rules restrict any use of the information to criminally investigate or prosecute any alcohol or drug abuse patient.[facility] HospitalIn the event this information is protected by the Federal Confidentiality of Alcohol and Drug Abuse Patient Records regulations: The Federal rules restrict any use of the information to criminally investigate or prosecute any alcohol or drug abuse patient.[facility] HospitalIn the event this information is protected by the Federal Confidentiality of Alcohol and Drug Abuse Patient Records regulations: The Federal rules restrict any use of the information to criminally investigate or prosecute any alcohol or drug abuse patient.[facility] HospitalIn the event this information is protected by the Federal Confidentiality of Alcohol and Drug Abuse Patient Records regulations: The Federal rules restrict any use of the information to criminally investigate or prosecute any alcohol or drug abuse patient.[facility] HospitalIn the event this information is protected by the Federal Confidentiality of Alcohol and Drug Abuse Patient Records regulations: The Federal rules restrict any use of the information to criminally investigate or prosecute any alcohol or drug abuse patient.[facility] HospitalIn the event this information is protected by the Federal Confidentiality of Alcohol and Drug Abuse Patient Records regulations: The Federal rules restrict any use of the information to criminally investigate or prosecute any alcohol or drug abuse patient.[facility] HospitalIn the event this information is protected by the Federal Confidentiality of Alcohol and Drug Abuse Patient Records regulations: The Federal rules restrict any use of the information to criminally investigate or prosecute any alcohol or drug abuse patient.[facility] Care Teams (unrecognized sec tion and content) Trim Die Maker Relationship Specialty Start Date End Date Tacos Hein MD [address] [place], [place] [id number] PCP - General Family Practice 01/22/21 Trim Die Maker Relationship Specialty Start Date End Date Tacos Hein MD [address] [place] [address] PCP - General Family Practice 01/22/21 Trim Die Maker Relationship Specialty Start Date End Date Tacos Hein MD [address] [place] [id number] PCP - General Family Practice 01/22/21 Trim Die Maker Relationship Specialty Start Date End Date Taocs Hein MD [address] [place] [address] PCP - General Family Practice 01/22/21 Trim Die Maker Relationship Specialty Start Date End Date Tacos Hein MD [address] [place] [address] PCP - General Family Practice 01/22/21 Trim Die Maker Relationship Specialty Start Date End Date Tacos Hein MD [address] [place] [address] PCP - General Family Practice 01/22/21 Trim Die Maker Relationship Specialty Start Date End Date Tacos Hein MD [address] [place] [address] PCP - General Family Practice 01/22/21 Trim Die Maker Relationship Specialty Start Date End Date Tacos Hein MD [address] [place] [address] PCP - General Family Practice 01/22/21 Trim Die Maker Relationship Specialty Start Date End Date Tacos Hein MD [address] [place] [address] [place] [id number] PCP - General Family Practice 01/22/21 Trim Die Maker Relationship Specialty Start Date End Date Tacos Hein MD [address] [place] [address] [place] [address] PCP - General Family Medicine 01/22/21 Trim Die Maker Relationship Specialty Start Date End Date Tacos Hein MD [address] [facility] [place] [address] PCP - General Family Medicine 01/22/21 Trim Die Maker Relationship Specialty Start Date End Date Tacos Hein MD [address] [facility] [place] [address] PCP - General Family Medicine 01/22/21 Trim Die Maker Relationship Specialty Start Date End Date Tacos Hein MD [address] [facility] [place] [place] [address] PCP - General Family Medicine 01/22/21 Trim Die Maker Relationship Specialty Start Date End Date Tacos Hein MD [facility] [place] [address] PCP - General Family Medicine 01/22/21 Trim Die Maker Relationship Specialty Start Date End Date Tacos Hein MD [address] [facility] [place] [address] PCP - General Family Medicine 01/22/21 Trim Die Maker Relationship Specialty Start Date End Date Tacos Hein MD [address] [facility] [place] [place] [address] PCP - General Family Medicine 01/22/21 Trim Die Maker Relationship Specialty Start Date End Date Tacos Hein MD [address] [facility] [place] [place] [address] PCP - General Family Medicine 01/22/21 Trim Die Maker Relationship Specialty Start Date End Date Tacos Hein MD [address] [place] [address], [place] [address] PCP - General Family Medicine 01/22/21 Trim Die Maker Relationship Specialty Start Date End Date Tacos Hein MD [address] [place] [address] PCP - General Family Medicine 01/22/21 Trim Die Maker Relationship Specialty Start Date End Date Tacos Hein MD [address] [place] [address] PCP - General Family Medicine 01/22/21 Trim Die Maker Relationship Specialty Start Date End Date Tacos Hein MD [address] [place] [address] PCP - General Family Medicine 01/22/21 Trim Die Maker Relationship Specialty Start Date End Date Tacos Hein MD [address] [place] [address] PCP - General Family Medicine 01/22/21 Trim Die Maker Relationship Specialty Start Date End Date Tacos Hein MD [address] [place] [address] PCP - General Family Medicine 01/22/21 Trim Die Maker Relationship Specialty Start Date End Date Tacos Hein MD [address] [place] [address] PCP - General Family Medicine 01/22/21 Trim Die Maker Relationship Specialty Start Date End Date Tacos Hein MD [address] [place] [address] PCP - General Family Medicine 01/22/21 Team Status: Active Member Role Status Dates Dr. Nieves Rayo MD Family Provider Active Dr. Tacos Hein MD Primary Care Provider Active Team Status: Inactive Member Role Status Dates Dr. Tacos Hein MD Primary Care Provider Active Dr. Gallo Hurtado MD Emergency Provider Active Team Status: Active Member Role Status Dates Dr. Tacos Hein MD Primary Care Pro vider, Referring Provider, Other Provider Active Dr. Rasta Alejandro MD Attending Provider Active Team Status: Inactive Member Role Status Dates Dr. Tacos Hein MD Primary Care Provider Active Dr. Gallo Hurtado MD Attending Provider, Emergency Pro vider Active Team Status: Inactive Member Role Status Dates Dr. Tacos Hein MD Primary Care Pro vider, Attending Provider, Referring Provider Active Trim Die Maker Relationship Specialty Start Date End Date Tacos Hein MD [address] [place] [address] PCP - General Family Medicine 01/22/21 Trim Die Maker Relationship Specialty Start Date End Date Tacos Hein MD [address] [place] [address] PCP - General Family Medicine 01/22/21 Trim Die Maker Relationship Specialty Start Date End Date Tacos Hein MD [address] [place] [address] PCP - General Family Medicine 01/22/21 Trim Die Maker Relationship Specialty Start Date End Date Tacos Hein MD [address] [place] [address] PCP - General Family Medicine 01/22/21 Trim Die Maker Relationship Specialty Start Date End Date Tacos Hein MD [address] [place] [address] PCP - General Family Medicine 01/22/21 Trim Die Maker Relationship Specialty Start Date End Date Tacos Hein MD [address] [place] [address] PCP - General Family Medicine 01/22/21 Trim Die Maker Relationship Specialty Start Date End Date Tacos Hein MD [address] [place] [address] PCP - General Family Medicine 01/22/21 Trim Die Maker Relationship Specialty Start Date End Date Tacos Hein MD [address] [place] [address] PCP - General Family Medicine 01/22/21 Trim Die Maker Relationship Specialty Start Date End Date Tacos Hein MD [address] [place] [address] PCP - General Family Medicine 01/22/21 Trim Die Maker Relationship Specialty Start Date End Date Tacos Hein MD [address] [place] [address] PCP - General Family Medicine 01/22/21 Tess Navarrete, JUANITA.SNOW RANGER [address] [place] [address] Audit Officer Family Medicine 07/02/24 Madison Mariee PA-C [address] [place] [address] Audit Officer Family Medicine 07/02/24 Trim Die Maker Relationship Specialty Start Date End Date Tacos Hein MD [address] [place] [address] PCP - General Family Medicine 01/22/21 Tess Navarrete, EXECUTIVE ADMINISTRATIVE ASSISTANT.SNOW RANGER [address] [place] [address] Audit Officer Family Medicine 07/02/24 Madison Mariee PA-C [address] [place] [address] Audit Officer Family Medicine 07/02/24 Trim Die Maker Relationship Specialty Start Date End Date Tacos Hein MD [address] [place] [address] PCP - General Family Medicine 01/22/21 Tess Navarrete APRN.SNOW RANGER [address] [place] [address] Audit Officer Family Medicine 07/02/24 Madison Mariee PA-C [address] [place] [address] [facility] 07/02/24 Trim Die Maker Relationship Specialty Start Date End Date Tacos Hein MD [address] [place] [address] PCP - General Family Medicine 01/22/21 Tess Navarrete APRN.SNOW RANGER [address] [place] [address] Audit Officer Family Medicine 07/02/24 Madison Mariee PA-C [address] [place] [address] Audit Officer Family Medicine 07/02/24 Trim Die Maker Relationship Specialty Start Date End Date Tacos Hein MD [address] [place] [address] PCP - General Family Medicine 01/22/21 Tess Navarrete APRN.SNOW RANGER [address] [place] [address] Audit Officer Family Medicine 07/02/24 Madison Mariee PA-C [address] [place] [address] Audit Officer Family Medicine 07/02/24 Trim Die Maker Relationship Specialty Start Date End Date Tacos Hein MD [address] [place] [address] PCP - General Family Medicine 01/22/21 Tess Navarrete APRN.SNOW RANGER [address] [place] [address] Audit Officer Family Medicine 07/02/24 Madison Mariee PA-C [address] [place] [address] Audit Officer Family Medicine 07/02/24 Trim Die Maker Relationship Specialty Start Date End Date Tacos Hein MD [address] [place] [address] PCP - General Family Medicine 01/22/21 Tess Navarrete APRN.SNOW RANGER [address] [place] [address] Audit Officer Family Medicine 07/02/24 Madison Mariee PA-C [address] [place] [address] Audit Officer Family Medicine 07/02/24 Trim Die Maker Relationship Specialty Start Date End Date Tacos Hein MD [address] [place] [address] PCP - General Family Medicine 01/22/21 Tess Navarrete APRN.SNOW RANGER [address] [place] [address] Audit Officer Family [facility] 07/02/24 Madison Mariee PA-C [address] [place] [address] [facility] 07/02/24 Trim Die Maker Relationship Specialty Start Date End Date Tacos Hein MD [address] [place] [address] PCP - General Family Medicine 01/22/21 Tess Navarrete, EXECUTIVE ADMINISTRATIVE ASSISTANT.SNOW RANGER [address] [place] [address] [facility] 07/02/24 Madison Mariee PA-C [address] [place] [address] [facility] 07/02/24 Rody Pablo PA-C [address] [place] [address] Neurology 09/26/24 Trim Die Maker Relationship Specialty Start Date End Date Tacos Hein MD [address] [place] [address] PCP - General Family Medicine 01/22/21 Tess Navarrete, EXECUTIVE ADMINISTRATIVE ASSISTANT.SNOW RANGER [address] [place] [address] [facility] 07/02/24 Madison Mariee PA-C [address] [place] [address] [facility] 07/02/24 Rody Pablo PA-C [address] [place] [address] Neurology 09/26/24 Trim Die Maker Relationship Specialty Start Date End Date Tacos Hein MD [address] [place] [address] PCP - General Family Medicine 01/22/21 Tess Navarrete, JUANITA.SNOW RANGER [address] [place] [address] Audit Officer Family Medicine 07/02/24 Madison Mariee PA-C [address] [place] [address] Audit Officer Family Medicine 07/02/24 Rody Pablo PA-C [address] [place] [address] Neurology 09/26/24 Trim Die Maker Relationship Specialty Start Date End Date Tacos Hein MD [address] [place] [address] PCP - General Family Medicine 01/22/21 Tess Navarrete, EXECUTIVE ADMINISTRATIVE ASSISTANT.SNOW RANGER [address] [place] [address] Audit Officer Family Medicine 07/02/24 Madison Mariee PA-C [address] [place] [address] Audit Officer Family Medicine 07/02/24 Rody Pablo PA-C [address] [place], [place] [address] Neurology 09/26/24 Trim Die Maker Relationship Specialty Start Date End Date Tacos Hein MD [address] [facility] [place] [address] PCP - General Family Medicine 01/22/21 Tess Navarrete APRN.SNOW RANGER [address] [facility] [place] [address] Audit Officer Family Medicine 07/02/24 Madison Mariee PA-C [address] [facility] [place] [address] Audit Officer Family Medicine 07/02/24 Rody Pablo PA-C [address] [place] [address] Neurology 09/26/24 Trim Die Maker Relationship Specialty Start Date End Date Tacos Hein MD [address] [facility] [place] [address] PCP - General Family Medicine 01/22/21 Tess Navarrete, JUANITA.SNOW RANGER [address] [facility] [place] [address] Audit Officer Family Medicine 07/02/24 Madison Mariee PA-C [address] [facility] [place] [address] Audit Officer Family Medicine 07/02/24 Rody Pablo PA-C [address] [place] [address] Neurology 09/26/24 Trim Die Maker Relationship Specialty Start Date End Date Tacos Hein MD [address] [facility] [place] [address] PCP - General Family Medicine 01/22/21 Tess Navarrete APRN.SNOW RANGER [address] [place] [address] [facility] Madison Mariee PA-C [address] [place] [address] [facility]24 Rody Pablo PA-C [address] [place] [address] Neurology 09/26/24 Trim Die Maker Relationship Specialty Start Date End Date Tacos Hein MD [address] [place] [address] PCP - General Family Medicine 01/22/21 Tess Navarrete APRN.SNOW RANGER [address] [place] [address] [facility] 07/02/24 Madison Mariee PA-C [address] [place] [address] [facility] 07/02/24 Rody Pablo PA-C [address] [place] [address] Neurology 09/26/24 Trim Die Maker Relationship Specialty Start Date End Date Tacos Hein MD [address] [facility] [place] [address] PCP - General Family Medicine 01/22/21 Tess Navarrete APRN.SNOW RANGER [address] [place] [address] [phone] Audit Officer Family [facility] 07/02/24 Madison Mariee PA-C [address] [place] [address] [phone] Audit Officer Family Medicine 07/02/24 Rody Pablo PA-C [address] [place] [address] [phone] Neurology 09/26/24 Team Status: Active Member Role Status Dates Dr. Tacos Hein MD Primary Care Provider Active Team Status: Inactive Member Role Status Dates Dr. Tacos Hein MD Primary Care Provider Active Start: August 31, 2024 End: August 31, 2024 Dr. Tacos Hein MD Attending Provider Active Start: August 31, 2024 End: August 31, 2024 Dr. Tacos Hein MD Referring Provider Active Start: August 31, 2024 End: August 31, 2024 Team Status: Active Member Role Status Dates Dr. Tacos Hein MD Primary Care Provider Active Start: August 31, 2024 Dr. Tacos Hein MD Referring Provider Active Start: August 31, 2024 Dr. Tacos Hein MD Other Provider Active St art: August 31, 2024 Dr. Jackson Mcallister MD Attending Provider Active S tart: August 31, 2024 Team Status: Inactive Member Role Status Dates Dr. Tacos Hein MD Primary Care Provider Active Start: November 15, 2024 End: November 15, 2024 Dr. Isai Landeros DO Emergency Provider Active Start: November 15, 2024 End: November 15, 2024 Trim Die Maker Relationship Specialty Start Date End Date Tacos eHin MD [address] [place] [id number] PCP - General Family Medicine 01/22/21 Tess Navarrete APRN.SNOW RANGER [address] [place] [address] [phone] Audit Officer Family Medicine 07/02/24 Madison Mariee PA-C [address] [place] [address] Audit Officer Family Medicine 07/02/24 Rody Pablo PA-C [address] [place] [address] Neurology 09/26/24 Trim Die Maker Relationship Specialty Start Date End Date Tacos Hein MD [address] [place] [address] PCP - General Family Medicine 01/22/21 Madison Mariee PA-C [address] [place] [address] Audit Officer Family Medicine 07/02/24 Rody Pablo PA-C [address] [place] [address] Neurology 09/26/24 Trim Die Maker Relationship Specialty Start Date End Date Tacos Hein MD [address] [place] [address] PCP - General Family Medicine 01/22/21 Tess Navarrete APRN.CNP [address] [place] [address] Audit Officer Family Medicine 07/02/24 12/11/24 Madison Mariee PA-C [address] [place] [address] Audit Officer Family Medicine 07/02/24 Rody Pablo PA-C [address] [place] [address] Neurology 09/26/24 Trim Die Maker Relationship Specialty Start Date End Date Tacos Hein MD [address] [facility] [place] [address] PCP - General Family Medicine 01/22/21 Rody Pablo PA-C [address] [place] [address] Neurology 09/26/24 Tess Navarrete APRN.SNOW RANGER [address] [place] [address] Audit Officer Family Medicine 12/26/24 Madison Mariee PA-C [address] [facility] [place] [address] Audit Officer Family Medicine 12/26/24 Trim Die Maker Relationship Specialty Start Date End Date Tacos Hein MD [address] [facility] [place] [address] PCP - General Family Medicine 01/22/21 Rody Pablo PA-C [address] [place] [address] Neurology 09/26/24 Tess Navarrete APRN.SNOW RANGER [address] [facility] [place] [address] Audit Officer Family Medicine 12/26/24 Madison Mariee PA-C [address] [facility] [place] [address] Audit Officer Family Medicine 12/26/24 Trim Die Maker Relationship Specialty Start Date End Date Tacos Hein MD [address] [facility] [place] [address] PCP - General Family Medicine 01/22/21 Rody Pablo PA-C [address] [place] [address] Neurology 09/26/24 Tess Navarrete, JUANITA.SNOW RANGER [address] [place] [address] [facility] 12/26/24 Madison Mariee PA-C [address] [facility] [place] [address] [facility] 12/26/24 Trim Die Maker Relationship Specialty Start Date End Date Tacos Hein MD [address] [facility] [place] [address] PCP - General Family Medicine 01/22/21 Rody Pablo PA-C [address] [place] [address] Neurology 09/26/24 Tess Navarrete, JUANITA.SNOW RANGER [address] [place] [address] [facility] 12/26/24 Madison Mariee PA-C [address] [facility] [place] [address] [facility] Medicine 12/26/24 Team Status: Inactive Member Role Status Dates Dr. Tacos Hein MD Primary Care Provider Active Start: November 15, 2024 End: November 15, 2024 Dr. Isai Landeros DO Attending Provider Active Start: November 15, 2024 End: November 15, 2024 Dr. Isai Landeros DO Emergency Provider Active Start: November 15, 2024 End: November 15, 2024 Team Status: Inactive Member Role Status Dates Dr. Tacos Hein MD Primary Care Provider Active Start: December 27, 2024 End: December 27, 2024 Dr. Tacos Hein MD Referring Provider Active Start: December 27, 2024 End: December 27, 2024 Dr. Kailee Mcnair MD Attending Provider Active Start: December 27, 2024 End: December 27, 2024 Trim Die Maker Relationship Specialty Start Date End Date Tacos Hein MD [address] [place], [place] [id number] PCP - General Family Medicine 01/22/21 Rody Pablo PA-C [address] [place], [place] [id number] Neurology 09/26/24 Tess Navarrete APRN.SNOW RANGER [address] [place], [place] [id number] [facility] 12/26/24 Madison Mariee PA-C [address] [place], [place] [id number] [facility] 12/26/24 Goals (unrecognized section and content) Goals may be documented in a n alternate sectionGoals may be documented in an alternate sectionGoals may be documented in an alternate sectionGoals may be documented in an alternate sectionGoals may be documented in an alternate sectionGoals may be documented in an alternate sectionGoals may be documented in an alternate section Active Administered Medications - up to 3 most recent administrations Administered Medications (un recognized section and content) Medication Order MAR Action Action Date Dose Rate Site denosumab 60 mg injection (PROLIA) 60 mg, SUBCUTANEOUS, EVERY 6 MONTHS, 2 doses, First dose on Thu09/18/23 at 0000, Last dose on Thu03/16/24 at 0000, Allow To Come To Room Temperature Before Administration. REFRIGERATE Given 09/18/2023 1:18 PM EST 60 mg Arm, Left INFORMATION SOURCE (unrecogn ized section and content) DATE CREATED AUTHOR 12/30/2024 [facility] DATE CREATED AUTHOR AUTHOR'S MORGAN ATION 01/20/2025 [facility] FOR RECORDS PERTAINING TO PATIENTS WHO ARE [...] BE BASED ON THE PRIMARY CLINICAL RECORDS. Art Qualified [facility]. provides no warranty or guarantee of the accuracy or completeness of information in this document.
[2025-01-20 07:50] LABS: Magnesium 2.4 mg/dL (1.5-2.2)
[2025-01-20 08:09] LABS: Cholesterol 284 mg/dL (<=200); High Density Lipoprotein 93 mg/dL; Low Density Lipoprotein Calc. 172 mg/dL; Triglycerides 95 mg/dL; Very Low Density Lipoprotein 19 mg/dL (5-40); cholesterol:hdl ratio screen 3.05
== END | disposition home or self-care (01) ==
LOC: LAB 05:59
PROVIDERS: PCP Family Medicine; Referring Provider Internal Medicine Cardiovascular Disease; Visit Provider Internal Medicine Cardiovascular Disease
DX: E78.5 Hyperlipidemia, unspecified (principal); I49.8 Other specified cardiac arrhythmias; I47.10 Supraventricular tachycardia, unspecified
CPT/HCPCS: 36415; 80061; 83735; 84443

== ENCOUNTER → 2025-02-02 | Outpatient (CLI) | payer MEDICARE, SELFPAY ==
--- NOTE | 2025-02-02 13:53 | ECHOD_ITS ---
Reason For Study Reason For Study: Chest Pain Procedure This was a 2D Doppler, Color Flow transthoracic echocardiogram. Exam performed in department. Left Ventricle Normal size and thickness. The LV ejection fraction is 65 %. Normal diastology for age. Right Ventricle Normal right ventricle. Atria The left and right atria are normal. Mitral Valve Trivial mitral valve insufficiency. Tricuspid Valve Mild tricuspid valve insufficiency. Normal pulmonary artery pressure. Aortic Valve Trisinus/trileaflet aortic valve. Pulmonic Valve Trivial pulmonic valve insufficiency. Great Vessels Normal sized aortic root. Pericardium/Pleural No pericardial effusion. MMode/2D Measurements & Calculations LVIDd: 4.5 cm IVSd: 0.71 cm Ao root diam: 3.4 cm LVIDs: 3.0 cm LVPWd: 0.75 cm RVDd: 3.4 cm FS: 33.3 % LAV(MOD-bp): 24.8 ml LVAd ap4: 22.0 cm2 SV(MOD-sp4): 37.3 ml LAV(MOD-bp) Indexed: 15.5 ml/m2 LVLd ap4: 6.7 cm SI(MOD-sp4): 23.3 ml/m2 LAV(MOD-sp2): 26.7 ml EDV(MOD-sp4): 58.8 ml LAV(MOD-sp4): 18.6 ml EDV(sp4-el): 61.4 ml LVAs ap4: 11.7 cm2 LVLs ap4: 5.3 cm ESV(MOD-sp4): 21.5 ml ESV(sp4-el): 21.7 ml EF(MOD-sp4): 63.4 % EF(sp4-el): 64.6 % SV(sp4-el): 39.7 ml LA A4 area: 9.7 cm2 LA dimension(2D): 3.1 cm RA A4 area: 11.1 cm2 TAPSE: 2.1 cm Time Measurements MV dec time: 0.21 sec Doppler Measurements & Calculations MV E max gutierrez: 65.3 cm/sec Lat Peak E' Gutierrez: 10.8 cm/sec Med Peak E' Gutierrez: 10.5 cm/sec MV A max gutierrez: 77.1 cm/sec E/E' lat: 6.1 E/E' med: 6.2 MV E/A: 0.85 MV V2 max: 90.1 cm/sec MV P1/2t max gutierrez: 82.0 cm/sec Ao V2 max: 132.1 cm/sec MV max P.2 mmHg MV P1/2t: 79.8 msec Ao max P.0 mmHg MV V2 mean: 46.3 cm/sec Ao V2 mean: 89.6 cm/sec MV mean P.0 mmHg MV dec slope: 300.8 cm/sec2 Ao mean P.7 mmHg MV V2 VTI: 29.5 cm MVA(P1/2t): 2.8 cm2 Ao V2 VTI: 31.5 cm AV (velocity ratio): 0.70 LV V1 max: 97.5 cm/sec PA V2 max: 87.8 cm/sec TR max gutierrez: 247.8 cm/sec LV V1 max P.8 mmHg PA V2 mean: 66.1 cm/sec TR max P.6 mmHg LV V1 mean P.8 mmHg LV V1 mean: 62.4 cm/sec LV V1 VTI: 22.1 cm ECHO/Echo Complete Interpretation Summary The LV ejection fraction is 65 %. Mild tricuspid valve insufficiency. Ordering Physician: Kailee Mcnair Referring Physician: Kailee Mcnair Performed By: Santosh Young [facility]
--- OUTSIDE RECORDS SUMMARY | 2025-02-02 22:11 | XMS RPT_ITS | CCD ---
Author Organization [facility] Inform ion Partnership [facility] Care Team Providers Care Television News Producer Name Role Phone [place] Funez DO Unavailable Tacos Hein MD Primary Care Provider Tacos Hein MD Primary Care Provider Tacos Hein MD Primary Care Provider Tacos Hein MD Primary Care Provider Dr. Tacos Hein Primary Care Provider Dr. Tacos Hein Referring Provider Dr. Tacos Hein Other Provider Dr. Rasta Alejandro Attending Provider Tacos Hein MD Primary Care Provider Tacos Hein MD Primary Care Provider Gildardo SUPERINTENDENT COMPRESSOR STATIONS.JOHANNA, Tess Unavailable Madison Mariee PA-C Unavailable Rody Pablo PA-C Unavailable Dr. Tacos Hein MD Primary Care Provider Dr. Tacos Hein MD Attending Provider Dr. Tacos Hein MD Referring Provider Dr. Tacos Hein MD Other Provider Dr. Jackson Mcallister MD Attending Provider Dr. Isai Landeros DO Emergency Provider Gildardo GRANT.ELL TUTOR, Tess Unavailable Gildardo SUPERINTENDENT COMPRESSOR STATIONS.ELL TUTOR, Tess Unavailable Kodi BACA, Madison Unavailable Dr. Isai Landeros DO Attending Provider [phone]. Kailee Mcnair MD Attending Provider [phone] MELVINA, TACOS Primary Care Unavailable QUEENER, RODY Referring Unavailable TIBURCIO BARRERA Attending Unavailable MELVINA, TACOS Primary Care Unavailable QUEENER, RODY Referring Unavailable MELVINA, TACOS Primary Care Unavailable MELVINA, TACOS Attending Unavailable MELVINA, TACOS Primary Care Unavailable MASCI, CODY A Attending Unavailable MELVINA, TACOS Primary Care Unavailable MELVINA, TACOS Primary Care Unavailable QUEENER, RODY Referring Unavailable MELVINA, TACOS Primary Care Unavailable MASCI, CODY A Referring Unavailable MELVINA, TACOS Primary Care Unavailable MELVINA, TACOS Attending Unavailable MELVINA, TACOS Primary Care Unavailable MELVINA, TACOS Referring Unavailable MELVINA, TACOS Primary Care Unavailable MELVINA, TACOS Referring Unavailable MELVINA, TACOS Primary Care Unavailable ALONA CRUZ Attending Unavailable MELVINA, TACOS Primary Care Unavailable MELVINA, TACOS Referring Unavailable MELVINA, TACOS Primary Care Unavailable QUEENER, RODY Referring Unavailable TIBURCIO BARRERA Attending Unavailable MELVINA, TACOS Primary Care Unavailable QUEENER, RODY Referring Unavailable MELVINA, TACOS Primary Care Unavailable QUEENER, RODY Referring Unavailable TIBURCIO BARRERA Attending Unavailable MELVINA, TACOS Primary Care Unavailable QUEENER, RODY Referring Unavailable TIBURCIOLEISAN Attending Unavailable MELVINA, TACOS Primary Care Unavailable QUEENER, RODY Referring Unavailable MELVINA, TACOS Primary Care Unavailable QUEENER, RODY Referring Unavailable MASCI, CODY A Attending Unavailable MELVINA, TACOS Primary Care Unavailable QUEENER, RODY Referring Unavailable MELVINA, TACOS Primary Care Unavailable TESS NAVARRETE Attending Unavailable MELVINA, TACOS Primary Care Unavailable MELVINA, TACOS Attending Unavailable MELVINA, TACOS Primary Care Unavailable QUEENER, RODY Referring Unavailable MELVINA, TACOS Primary Care Unavailable MELVINA, TACOS Referring Unavailable QUEENER, RODY Attending Unavailable MELVINA, TACOS Primary Care Unavailable ALONA CRUZ Attending Unavailable MELVINA, TACOS Primary Care Unavailable MELVINA, TACOS Referring Unavailable MELVINA, TACOS Primary Care Unavailable MELVINA, TACOS Referring Unavailable Melvina MILLER, Dr. Balderrama Primary Care Provider Dr. Tacos Hein MD Referring Provider Xu MILLER, Dr. Dugan Referring Provider [phone] Inez Moya Attending Unavailable Melvina, Tacos Primary Care Unavailable Odin Ware Consulting Unavailable Odin Ware Admitting Unavailable Rasta Alejandro Attending Unavailable Melvina, Tacos Primary Care Unavailable Jackson Mcallister Attending Unavailable Melvina, Tacos Consulting Unavailable Melvina, Tacos Referring Unavailable Melvina, Tacos Primary Care Unavailable Melvina, Tacos Primary Care Unavailable Odin Ware Consulting Unavailable Odin Ware Attending Unavailable Odin Ware Admitting Unavailable Melvina, Tacos Referring Unavailable Melvina, Tacos Primary Care Unavailable Kailee Mcnair Attending Unavailable Tacos Hein Attending Unavailable Melvina, Tacos Referring Unavailable Melvina, Tacos Primary Care Unavailable Isai Landeros Attending Unavailable Melvina, Tacos Primary Care Unavailable Melvina, Tacos Primary Care Unavailable Kailee Mcnair Attending Unavailable Xu, Kailee Referring Unavailable Melvina, Newton Primary Care Unavailable Kailee Mcnair Attending Unavailable XuKailee Referring Unavailable Allergies Allergy Classification Reported Allergen(s) Allergy Type Date of Onset Reaction(s) Facility (20 sources) Mold Extract; Translations: [MOLD] Drug Allergy 09-23-19 17 Other: See Comments [facility] Work Phone: (1 source) Penicillin G Drug Allergy 09-23-19 17 [facility] Work Phone: (1 source) Sulfacetamide Drug Allergy 09-23-19 17 [facility] Work Phone: (1 source) STINGING INSECTS; Translations: [STINGING INSECTS] allergy to substance 08-22-19 22 [facility] Work Phone: (1 source) PLANT POLLENS; Translations: [PLANT POLLENS] allergy to substance 09-23-19 17 hay fever [facility] Work Phone: (14 sources) Penicillins; Translations: [PENICILLINS] Propensity to adverse reactions to drug 08-20-19 05 Unknown [facility] Work Phone: (20 sources) Pollen; Translations: [POLLEN EXTRACTS] Drug Allergy 02-10-20 19 Other: See Comments [facility] Work Phone: (20 sources) Sulfonamides (Antibiotic); Translations: [SULFA (SULFONAMIDE ANTIBIOTICS)] Propensity to adverse reactions to drug 08-20-19 05 Unknown [facility] Work Phone: (20 sources) Penicillins Propensity to adverse reactions to drug 08-20-19 05 Unknown [facility] Work Phone: (20 sources) Alendronate; Translations: [ALENDRONATE] Drug Allergy 07-09-20 22 GI Upset [facility] (20 sources) Ibandronate; Translations: [IBANDRONATE] Drug Allergy 07-09-20 22 GI Upset [facility] (20 sources) Clindamycin; Translations: [CLINDAMYCIN] Drug Allergy 02-22-20 23 Rash [facility] Work Phone: (5 sources) Penicillins Propensity to adverse reactions 08-03-19 24 Nausea [facility] (5 sources) Sulfonamides (Antibiotic) Propensity to adverse reactions 08-03-19 24 Nausea [facility] (20 sources) Doxycycline; Translations: [DOXYCYCLINE] Drug Allergy 02-01-20 24 Other: See Comments [facility] Comment on above: atrioventricular tac hycardia (15 sources) Penicillins Propensity to adverse reactions to drug 08-20-19 05 Unknown [facility] (1 source) Alendronate Drug Allergy 12-27-19 25 [facility] Repository (1 source) Clindamycin Drug Allergy 12-27-19 25 [facility] (1 source) Doxycycline Drug Allergy 12-27-19 25 [facility] (1 source) Ibadronate Drug Allergy 12-27-19 25 [facility] (1 source) Penicillins Drug allergy (disorder) 12-27-19 25 [facility] (1 source) Sulfonamides (Antibiotic) Drug allergy (disorder) 12-27-19 25 [facility] Medications Current Medications Medication Drug Class(es) Dates Sig (Normalized) Sig (Original) [id number] 200 actuat albuterol 0.09 mg/actuat metered dose [...] inhaler as needed as directed albuterol sulfate [id number] Stephanie Juárez LPN Comment on above: Inhale [...] on above: Take 2 tablets by mo [facility] once daily for 1 day, THEN 1 [...] 28, 2024 12:00am November 15, 2024 9:20am breathing Start: 01-28-2024 End: 11-15-2024 take 80 ug [...] on above: Take 1 capsule by mo [facility] four times daily for 7 days. clindamycin 300 mg oral capsule (3 sources) Lincosamide Antibacterial Start: 5 take 1 capsule by mouth three times [...] Comment on above: Take 1 capsule by [facility] four times daily for 7 days. cyclobenzaprine hydrochloride 10 mg oral tablet (6 sources) Muscle Relaxant Start: 2024 take 1 [...] Drops In A Dropperette) 0.05 % dropperette (3 sources) Start: 11-15-2024 Cyclosporine (Cyclosporine 0.05 % [...] 60 mg/mL syringe Active 60 mg SC .[id number] January 28, 2024 12:00am [facility] Start: 07-16-2022 End: 07-10-2023 denosumab 60 mg injection (P ROLIA) Start: 02-07-2021 End: 02-01-2022 denosumab 60 mg injection (P ROLIA) Start: 01-30-2021 End: 03-19-2023 denosumab (PROLIA) 60 mg/mL Indications: Osteoporosis, unspecified osteoporosis type, unspecified pathological fracture presence 1 milliliter subcutaneously every 6 months. 1 mL 1 07/07/2022 03/19/2023 Discontinued PROLIA 60 MG/ML SOSY subcutaneously as directed 2 injections annually denosumab [id number] Stephanie Juárez LPN Comment on above: 1 milliliter subcuta neously every 6 months. folic acid 0.8 mg oral tablet (20 sources) Start: 12-26-2024 take 0.8 mg by mouth once daily Folic Acid 800 mcg tablet Active 0.8 mg PO daily December 26, 2024 12:00am Start: 02-03-2007 take 1 tablet by [facility] once daily folic acid 800 mcg ORAL Tab Take 800 mcg by mouth once daily. 0 02/03/2007 Active Comment on above: Take one(1) tablet d aily. gabapentin 300 mg oral capsule (20 sources) Anti-epileptic Agent Start: 01-28-2024 take 1 capsule by mouth every twelve hours Gabapentin 300 mg capsule Active 300 mg PO Q12H January 28, 2024 12:00am nerve pain Start: 02-12-2023 End: 03-25-2025 take 1 capsule [...] Comment on above: Take 1 capsule by [facility] daily at bedtime for 180 days. Take 1 capsule by [facility] twice daily for 180 days. L.ACID/L.CASEI/B.BIF/B .ROBIN/FOS (PROBIOTIC BLEND ORAL) (20 sources) take 1 tablet by mouth once daily L.ACID/L.CASEI/B.BIF /B.ROBIN/FOS (PROBIOTIC BLEND ORAL) Take 1 tablet by mouth once daily. Active L.ACID/L.CASEI/B .BIF/B.ROBIN/FOS (PROBIOTIC BLEND ORAL) Take by mouth. Active L.ACID/L.CASEI/B .BIF/B.ROBIN/FOS (PROBIOTIC BLEND ORAL) Take by mouth. 0 Active Comment on above: Take by mouth. L.acidoph,saliva-B.bif-S.t herm (Acidophilus Probiotic Blend) (2 sources) Start: 12-26-2024 L.acidoph,sali va-B.bif-S. therm (Acidophilus Probiotic [...] take 1 tablet by mouth once daily Meloxicam 7.5 mg tablet Active 7.5 mg PO DAILY January 28, 2024 12:00am pain Start: 09-12-2022 take 1 tablet by chuckie [...] 1 tablet by [facility]ie [facility] once daily. 24 hr metoprolol succinate 25 mg extended release oral tablet (1 source) beta-Adrenergic Krissy Start: 5 take 1 tablet by mouth once daily Metoprolol Succinate 25 mg tablet extended release 24 hr Active 25 mg PO daily 90 3 December 27, 2024 12:00am montelukast 10 mg oral tablet (20 sources) Leukotriene Receptor Antagonist Start: 3 End: 5 take 1 tablet by mouth at bedtime Montelukast 10 mg tablet Active 10 mg PO AT BEDTIME January 28, 2024 12:00am allergies Start: 09-12-2022 take 1 tablet by chuckie [...] chuckie th daily at bedtime. Multivitamin tablet (2 sources) Start: Multivitamin tablet Active 1 {tbl} PO daily December 26, 2024 12:00am polymyxin b [id number] unt/ml / trimethoprim 1 mg/ml ophthalmic solution (1 source) Dihydrofolate Reductase Inhibitor Antibacterial, Polymyxin-class Antibacterial Start: End: 4 take 1 drop(s) into the eye(s) every four hours trimethoprim-polymyx in (POLYTRIM) 10,000 unit- 1 mg/mL ophthalmic solution Use 1 Drop in the right eye every 4 hours for 7 days. 10 mL 0 10/13/2023 10/20/2023 Active Comment on above: Use 1 Drop in the ri ght eye every 4 hours for 7 days. predniSONE 20 mg oral tablet (8 sources) Start: Prednisone 20 mg tablet Active mg PO December 27, 2024 12:00am Start: 12-26-2024 predniSONE (DE LTASONE) 20 mg tablet Take 3 tabs by mouth for 3 days, then 2 tabs by mouth for 3 days, then 1 tab by mouth for 3 days and then 1/2 a tab by mouth for 4 days. 20 tablet 12/26/2024 Active rosuvastatin calcium 5 mg oral tablet (1 source) HMG-CoA Reductase Inhibitor Start: 01-24-2025 take 1 tablet by mouth once daily Rosuvastatin (Crestor) 5 mg tablet Active 5 mg PO daily 30 6 January 24, 2025 12:00am tiZANidine 2 mg oral tablet (2 sources) Central alpha-2 Adrenergic Agonist Start: 12-27-2024 Tizanidine [...] Comment on above: Take 1 capsule by [facility] twice daily. ciprofloxacin 3 mg/ml ophthalmic solution (3 sources) Quinolone Antimicrobial Start: 01-29-2024 End: 11-15-2024 Ciprofloxacin Hcl 0.3 % Drops Discontinued 1 NMA LEFT EYE EVERY 4 HOURS 5 0 January 29, 2024 12:00am November 15, 2024 9:19am doxycycline hyclate 100 mg oral tablet (4 sources) Tetracycline-class Drug Start: 01-28-2024 End: 01-29-2024 [...] Comment on above: Take 1 tablet by [facility] two times a day for 7 days. 30 actuat fluticasone furoate 0.1 mg/actuat dry powder inhaler (20 sources) Corticosteroid Start: 12-27-19 25 End: 12-28-19 25 take 100 ug by inhalation once daily [...] 28, 2024 12:00am November 15, 2024 9:20am breathing Start: 11-18-2023 End: 12-03-2024 take 1 puff(s) by inhalation once daily fluticasone furoate (ARNUITY ELLIPTA) 100 mcg/actuation inhaler Inhale 1 Puff as instructed once daily. 30 Each 5 06/06/2024 08/16/2024 Discontinued (Discontinued by Patient) Start: [...] medicated shampoo (18 sources) Azole Antifungal Start: 022 End: 023 ketoconazole (NIZORAL) 2 % shampoo Apply to affected area every 72 hours. 120 mL 1 12/17/2021 08/15/2022 Discontinued Comment on above: Apply to affected ar ea every 72 hours. 120 actuat mometasone furoate 0.1 mg/actuat metered dose inhaler (5 sources) Corticosteroid Start: End: 024 take 1 puff(s) by inhalation twice daily [...] mg/ml topical cream (16 sources) Corticosteroid Start: End: triamcinolone acetonide (KENALOG) 0.1 % cream Apply [...] Take by mouth. Vitamin B Complex tablet (2 sources) Start: 12-26-2024 End: 12-27-2024 Vitamin B Complex tablet Discontinued 1 {tbl} PO daily December 26, 2024 12:00am December 27, 2024 10:09am Problems Active Problems Problem Classification Problem Date Documented Date Episodic/Chronic Allergic reactions (3 sources) Allergic reaction; Translations: [Allergy, unspecified, initial encounter] 02-21-2023 Episodic Asthma (20 sources) Intrinsic asthma; Translations: [Unspecified asthma, uncomplicated] Onset: 10-31-2014 Resolved: 12-01-2023 01-21-2021 Chronic Cardiac dysrhythmias (19 sources) EKG: accelerated junctional rhythm; Translations: [Other [...] Onset: 10-04-2024 10-04-2024 Chronic Nonspecific chest pain (10 sources) Chest discomfort; Translations: [Other chest pain] [...] neck] 02-17-2023 Episodic Other connective tissue disease (20 sources) Fibromyalgia; Translations: [Fibromyalgia] Onset: 08-23-2015 01-21-2021 Episodic Other connective tissue disease (3 sources) Ganglion cyst; Translations: [Ganglion, unspecified site] Episodic Other connective tissue disease (3 sources) Ganglion cyst of right hand; Translations: [Ganglion, right hand] Episodic Other connective tissue disease (1 source) Trochanteric bursitis; Translations: [Trochanteric bursitis, right hip] 12-26-2024 Episodic Other connective tissue disease (2 sources) Recurrent falls ; Translations: [Repeated falls] 12-27-2024 [...] (1 source) Polyneuropathy, unspecified; Translations: [Neuropathy] Onset: 09-13-2024 Chronic Other nervous system disorders (1 source) Lesion of lateral popliteal nerve, unspecified lower limb; Translations: [Peroneal neuropathy, unspecified laterality] Onset: 09-01-2024 Chronic Other nervous system disorders (2 sources) Paresthesia of foot ; Translations: [Anesthesia of skin] 08-16-2024 Episodic Other nervous system disorders (1 source) Paresthesia; Translations: [Paresthesia of skin] 10-07-2024 Episodic Other nutritional; endocrine; and metabolic disorders [...] left ear] Episodic Poisoning by nonmedicinal substances (2 sources) Spider bite wound; Translations: [Toxic effect of [...] Onset: 02-12-2024 02-12-2024 Chronic Unclassified (1 source) Appointment Cancelled Onset: 11-15-2024 Unclassified (1 source) Accelerated atrioventricular junctional rhythm Unclassified (1 source) I47.10 - Supraventricular tachycardia, unspecified,I49.8 - Other specified cardiac arrhythmias,R07.9 - Chest pain, unspecified Unclassified (1 source) Supraventricular tachycardia, unspecified; Translations: [Supraventricular tachycardia, unspecified] Onset: 12-27-2024 Past or Other Problems Problem Classification Problem Date Documented Da te Episodic/Chronic Administrative/social admission (20 sources) Advance directive discussed with patient; Translations: [Other specified counseling] Onset: 08-15-2022 Episodic E Codes: Adverse effects of medical drugs (4 sources) Adverse reaction to drug; Translations: [Adverse [...] (20 sources) Patient encounter status; Translations: [Other prison (current) drug therapy] Onset: 01-21-2021 01-21-2021 Episodic Other aftercare (1 source) Other terminal supervisor (current) drug therapy; Translations: [Medication management] Onset: [...] of skin] Onset: 08-14-2021 08-14-2021 Episodic Other nervous system disorders (3 sources) Anesthesia of skin; Translations: [Numbness and tingling of both feet] Onset: 09-29-2024 Episodic Other nervous system disorders (2 sources) Paresthesia of skin; Translations: [Numbness and tingling of both feet] Onset: 09-29-2024 Episodic Other screening for suspected conditions (not mental disorders or infectious disease) (4 sources) Raised cardiac enzyme or marker; Translations: [...] Test Name Value Interpretation Reference Range Facility Calculated very low density lipoprotein (VLDL) cholesterol measurementOrdered By: Kailee Mcnair on 01-20-2025 Calculated very low density lipoprotein (VLDL) cholesterol measurement 19 mg/dL [facility] LDL calc ser/plasOrdered By: Kailee Mcnair on 01-20-2025 Cholesterol in LDL [Mass/Vol] 172 mg/dL Normal [facility] Comment on above: Wtddnjvefz=466-161 m g/dL & Higher Ftai=047 mg/dL or greater Result Comment: Bord nukual=985-868 mg/dL Higher Dive=566 mg/dL or greater Performed By: #### L 499.0042 #### [facility] [address], [place], [id number] Lipid Profileon 01-20-2025 CHOL:HDL 3.05 Normal [facility] Comment on above: Performed By: #### L [id number] #### [facility] [address] [place], [place], [id number] Cholesterol in VLDL [Mass/Vol] 19 mg/dL Normal [facility] Comment on above: Performed By: #### L [id number] #### [facility] [address] [facility] [place], [place], [id number] Magnesiumon 01-20-2025 Magnesium [Mass/Vol] 2.4 mg/dL High 1.5-2.2 [facility] Comment on above: Performed By: #### L [id number] #### [facility] [address] [place], [address] Magnesium measurement (mass/ volume)Ordered By: Kailee Mcnair on 01-20-2025 Magnesium (Unsp spec) [Mass/Vol] 2.4 mg/dL High 1.5-2.2 [facility] Screening total cholesterol/ high density lipoprotein (HDL) cholesterol ratioOrdered By: Kailee Mcnair on 01-20-2025 Cholesterol.total/Chol esterol in HDL [Mass ratio] 3.05 {ratio} [facility] Serum or plasma cholesterol in HDL measurement (mass/volume)Ordered By: Kailee Mcnair on 01-20-2025 Cholesterol in HDL [Mass/Vol] 93 mg/dL Normal [facility] Comment on above: National Cholesterol Education Program (NCEP) guidelines:<40 mg/dL: Low HDL-cholesterol (major risk factor for CHD)>= 60 mg/dL: High HDL-cholesterol (negative risk factor for CHD)HDL-cholesterol is affected by a number of factors, e.g. smoking, exercise, hormones, sex and age. Result Comment: Dede onal Cholesterol Education Program (NCEP) guidelines: <40 mg/dL: Low HDL-cholesterol (major risk factor for CHD) >= 60 mg/dL: High HDL-cholesterol (negative risk factor for CHD) HDL-cholesterol is affected by a number of factors, e.g. smoking, exercise, hormones, sex and age. Performed By: #### L [id number] #### [facility] [address] [place], [place], [id number] Serum or plasma cholesterol measurement (mass/volume)Ordered By: Kailee Mcnair on 01-20-2025 Cholesterol [Mass/Vol] 284 mg/dL High <=200 [facility] Comment on above: Cholesterol level, D esirable <200 mg/dLBorderline high cholesterol 200-239 mg/dLHigh cholesterol >=240 mg/dLRecommendations of the NCEP Adult Treatment Panel for the following risk-cutoff thresholds for the [place] population. Result Comment: Chol esterol level, Desirable <200 mg/dL Borderline high cholesterol 200-239 mg/dL High cholesterol >=240 mg/dL Recommendations of the NCEP Adult Treatment Panel for the following risk-cutoff thresholds for the [place] population. Performed By: #### L [id number] #### [facility] [address] [place], [place], [address] TSH DL <= 0.005 mIU/L QnOrde red By: Kailee Mcnair on 01-20-2025 TSH Qn 2.930 uIU/mL 0.300-4.200 [facility] Thyroid Stim Hormone (TSH)on 01-20-2025 TSH 2.930 uIU/mL Normal 0.300-4.200 [facility] Comment on above: Performed By: #### L [id number] #### [facility] [address] [place], [address] Triglycerides measurementOrd ered By: Kailee Mcnair on 01-20-2025 Triglyceride [Mass/Vol] 95 mg/dL Normal [facility] Comment on above: The drugs N-Acetylcy steine and Metamizole may falsely depress this assay. Normal range: <150 mg/dLBorderline High: 150-199 mg/dLHigh: 200-499 mg/dLVery High: >500 mg/dL Result Comment: The drugs N-Acetylcysteine and Metamizole may falsely depress this assay. Normal range: <150 mg/dL Borderline High: 150-199 mg/dL High: 200-499 mg/dL Very High: >500 mg/dL Performed By: #### L [id number] #### [facility] [address] [place], [place], [id number] CNTHERAPYon 01-16-2025 CNTHERAPY OT/PT/Speech Visit (PTWS) LUPIS BRITO ([id number]) 1950 F Date Time Provider Department 01/16/25 3:30 PM BARRERA MEJIA PTWS Date Time Provider Department Center 01/16/2025 3:30 PM [id number], SEAN PTWS Rashad Purcell Reason for Visit: [...] 01/18/2025 - denosumab 60 mg injection (PROLIA) [employer]: Therapy (PT/OT/Speech/Resp) ID: [id number] 01/16/2025 4:02 PM Author: BARRERA MEJAI Signed by BARRERA MEJIA PT on 01/16/2025 at 4:02 PM Document text: Program_ID:[id number] Access Code: [email or web address] URL: [email or web address] Date: 01-16-2025 Prepared By: Barrera Mejia Program [...] - Seated Thoracic Flexion and Rotation with Pakistani Ball - 1 x daily - 7 x weekly - 2 sets - 10 reps - Supine Lower Trunk Rotation - 1 x daily - 7 x weekly - 2 sets - 10 reps - Hooklying Lumbar Traction - 1 x daily - 7 x weekly - 3 sets - 10 reps ----- Normal [facility] THERAPY NTon 01-16-2025 THERAPY NT HNO ID: [id number] Author: BARRERA MEJIA PT Service: ? Author Type: Physical Therapist Type: Therapy (PT/OT/Speech/Resp) Filed: 01/16/2025 16:02 Note Text: Program_ID:[id number] Access Code: [email or web address] URL: [email or web address] Date: 01-16-2025 Prepared By: Barrera Mejia Program [...] - Seated Thoracic Flexion and Rotation with Pakistani Ball - 1 x daily - 7 x weekly - 2 sets - 10 reps - Supine Lower Trunk Rotation - 1 x daily - 7 x weekly - 2 sets - 10 reps - Hooklying Lumbar Traction - 1 x daily - 7 x weekly - 3 sets - 10 reps Normal [facility] CNOVon 01-06-2025 CNOV Office Visit (PULMWS ) LUPIS BRITO ([id number]) 1950 F Date Time Provider Department 01/06/25 9:30 AM ALONA CRUZ PULMWS During your visit today, we recorded the following information about you: Pulse Respiration Blood pressure Weight 64/minute 16/minute 120/74 59 kg Alona Cruz MD 01/06/2025 9:43 AM [facility] Respiratory Tendoy Note Patient name: Lupis Brito PCP: Tacos Hein MD CC: Asthma HPI: Lupis Brito 74 year old female never smoker with PMH significant for asthma diagnosed by methacholine challenge, allergic rhinitis, fibromyalgia, osteoporosis, neuropathy presenting for follow-up. Previous therapy with ICS (Arnuity) and as needed albuterol. At [facility], she had issues with dysphonia due to [...] folic a (more content not included)... Normal [facility] CNTHERAPYon 12-30-2024 CNTHERAPY OT/PT/Speech Visit (PTWS) LUPIS BRITO ([id number]) 1950 F Date Time Provider Department 12/30/24 9:00 AM BARRERA MEJIA PTWS Date Time Provider Department Center 12/30/2024 9:00 AM [id number], SEAN PTWS [place] Purcell Reason for Visit: [...] 12/30/2024 - denosumab 60 mg injection (PROLIA) Studio Grip: Therapy (PT/OT/Speech/Resp) ID: [id number] 12/30/2024 9:20 AM Author: BARRERA MEJIA Signed by BARRERA MEJIA PT on 12/30/2024 at 9:20 AM Document text: Program_ID:[id number] Access Code: [email or web address] URL: [email or web address] Date: 12-30-2024 Prepared By: Barrera Mejia Program [...] - Seated Thoracic Flexion and Rotation with Pakistani Ball - 1 x daily - 7 x weekly - 2 sets - 10 reps - Supine Lower Trunk Rotation - 1 x daily - 7 x weekly - 2 sets - 10 reps ----- Normal [facility] THERAPY NTon 12-30-2024 THERAPY NT HNO ID: [id number] Author: BARRERA MEJIA PT Service: ? Author Type: Physical Therapist Type: Therapy (PT/OT/Speech/Resp) Filed: 12/30/2024 09:20 Note Text: Program_ID:[id number] Access Code: [email or web address] URL: [email or web address] Date: 12-30-2024 Prepared By: Barrera Mejia Program [...] - Seated Thoracic Flexion and Rotation with Pakistani Ball - 1 x daily - 7 x weekly - 2 sets - 10 reps - Supine Lower Trunk Rotation - 1 x daily - 7 x weekly - 2 sets - 10 reps Normal [facility] Cardiology Visit Reporton Cardiology Visit Report [facility] [address] [place] [address]. [address] [place] [address] OFFICE VISIT Date of Service: 12/27/24 MR#: [id number] Acct: [id number] Name: ZAFARROGELIOLUPIS Sandoval Rep #: [id number] : 1950 Provider: Dr. 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 Normal [facility] CNOVon 12-26-2024 CNOV Office Visit (FAMPWS ) LUPIS BRITO ([id number]) 1950 F Date Time Provider Department 12/26/24 1:00 PM [facility]OS [facility]IN [facility] During your visit today, we recorded the following information about you: Pulse Respiration Blood pressure Weight 81/minute 16/minute 108/70 59 kg Tacos Hein MD 12/26/2024 3:12 PM Signed Chief Complaint Patient presents with: Hospital F/U HPI Lupis Brito is a 74 year old female who presents here today for Hospital Discharge Follow up.. Phone note 12/12/2024 Pt reports she was seen in [facility] ER yesterday (12/11/24). Address: [address] [place] [address]. ( # [phone]). Reports she was seen for severe back pain after falling off her RV steps, and falling flat on her back onto soft grassy area. Reports she see's Dr Alves for pain management for chronic back problems, and also does therapy at [facility]. Reports the back is not her problem [...] Current Out (more content not included)... Normal [facility]UP[facility] ([id number]) 1950 F Date Time Provider Department 12/12/24 TACOS HEIN During your visit today, we recorded the following information about you: Dorian Thomson, RN 12/12/2024 2:00 PM Signed Pt reports she was seen in [facility] ER yesterday (12/11/24). Address: [address] [place] [address]. ( ). Reports she was seen for severe back pain after falling off her RV steps, and falling flat on her back onto soft grassy area. Reports she see's Dr Alves for pain management for chronic back problems, and also does therapy at [facility]. Reports the back is not her problem [...] with pcp. Pt will not return to [place] for 2 weeks. Wants to know if pcp can send Rx for the muscle relaxers and pain medication to where she is at in [place], [place]? Advised pt pcp is out of [...] 01/22/2021 Medicare (more content not included)... Normal [facility] CNTHERAPYon 11-29-2024 CNTHERAPY OT/PT/Speech Visit (PTWS) LUPIS BRITO ([id number]) 1950 F Date Time Provider Department 11/29/24 9:15 AM BARRERA MEJIA PTWS Date Time Provider Department Center 11/29/2024 9:15 AM [id number], SEAN PTWS [place] Purcell Reason for Visit: [...] 11/29/2024 - denosumab 60 mg injection (PROLIA) Studio Grip: Addendum Therapy (PT/OT/Speech/Resp) ID: [id number] 11/29/2024 9:39 AM Author: BARRERA MEJIA Signed by BARRERA MEJIA PT on 11/29/2024 at 9:39 AM * * * This document replaces document [id number] * * * Document text: Program_ID:[id number] Access Code: [email or web address] URL: [email or web address] Date: 11-29-2024 Prepared By: Barrera Mejia Program [...] - Seated Thoracic Flexion and Rotation with Pakistani Ball - 1 x daily - 7 [...] 3 sets - 10 reps ----- Normal [facility] THERAPY NTon 11-29-2024 THERAPY NT HNO ID: [id number] Author: BARRERA MEJIA, DION Service: ? Author Type: Physical Therapist Type: Therapy (PT/OT/Speech/Resp) Filed: 11/29/2024 09:39 Note Text: Program_ID:[id number] Access Code: [email or web address] URL: [email or web address] Date: 11-29-2024 Prepared By: Barrera Mejia Program [...] - Seated Thoracic Flexion and Rotation with Pakistani Ball - 1 x daily - 7 [...] - 3 sets - 10 reps Normal [facility] CNTHERAPYon 11-21-2024 CNTHERAPY OT/PT/Speech Visit (PTWS) LUPIS BRITO ([id number]) 1950 F Date Time Provider Department 11/21/24 12:30 PM ADRIANA SALCEDO Date Time Provider Department [place] 11/21/2024 12:30 PM [id number], MARIAH PTCAIO Purcell Reason for Visit: Physical Therapy [503] [...] 11/21/2024 - denosumab 60 mg injection (PROLIA) Studio Grip: Therapy (PT/OT/Speech/Resp) ID: [id number] 11/21/2024 12:55 PM Author: ADRIANA SALCDEO Signed by ADRIANA SALCEDO ENROLLMENT PROCESSOR on 11/21/2024 at 12:55 PM Document text: Program_ID:[id number] Access Code: [email or web address] URL: [email or web address] Date: 11-21-2024 Prepared By: Barrera Mejia Program [...] - Seated Thoracic Flexion and Rotation with Pakistani Ball - 1 x daily - 7 [...] 3 sets - 10 reps ----- Normal [facility] THERAPY NTon 11-21-2024 THERAPY NT HNO ID: [id number] Author: ADRIANA SALCEDO PTA Service: ? Author Type: Vigoureux Printer Type: Therapy (PT/OT/Speech/Resp) Filed: 11/21/2024 12:55 Note Text: Program_ID:[id number] Access Code: [email or web address] URL: [email or web address]/ Date: 11-21-2024 Prepared By: Barrera Mejia Program [...] - Seated Thoracic Flexion and Rotation with Pakistani Ball - 1 x daily - 7 [...] - 3 sets - 10 reps Normal [facility] CNOVon 11-18-2024 CNOV Office Visit (FAMPWS ) LUPIS BRITO ([id number]) 1950 F Date Time Provider Department 11/18/24 9:20 AM TESS NAVARRETE During your visit today, we recorded the following information about you: Pulse Blood pressure Weight 80/minute 94/63 59 kg Tess Navarrete, SUPERINTENDENT COMPRESSOR STATIONS.ELL TUTOR 11/18/2024 10:07 AM Signed Chief Complaint Patient presents with: ER F/U HPI Lupis Brito is a 74 year old female who presents here today for Above Complaints.. Patient presents for ER follow up for SVT. Patient reports she was not given any new prescriptions and told to follow up with her PCP for cardiology referral. Patient requesting to go to [facility]. Reports she was given adenosine which [...] Density Scree (more content not included)... Normal [facility] [id number] 11-18-2024 ECG01 Ventricular Rate : 7 0 BPM Atrial Rate : 70 BPM P-R Interval : 184 ms QRS Duration : 74 ms Q-T Interval : 400 ms QTC Calculation(Bazett) : 432 ms Calculated P [place] : 69 degrees Calculated R [place] : 52 degrees Calculated T [place] : 64 degrees NORMAL SINUS RHYTHM NORMAL ECG Confirmed by TACOS KAUFFMAN M.D. ([id number]) on 11/18/2024 4:39:20 PM NAME : LUPIS BRITO PID : [id number] : 1950 Gender : Female Race : ORD : Procedure Date : Nov 18 2024 09:51:44 Edit Date : Nov 18 2024 16:39:22 Diagnosis: NORMAL SINUS RHYTHM NORMAL ECG Confirmed by TACOS KAUFFMAN M.D. ([id number]) on 11/18/2024 4:39:20 PM Test Reason : Location : 136 : [facility] Overread By : TACOS KAUFFMAN M.D. Edited By : TACOS KAUFFMAN M.D. Referred By : Tess Navarrete Acquired by : Femi fenton [facility] Absolute lymphocyte countOrd ered By: Isai Landeros on 11-15-2024 Lymphocytes Auto (Unsp spec) [#/Vol] 2.42 10*3/uL 0.83-4.51 [facility] Absolute neutrophil countOrd ered By: Isai Landeros on 11-15-2024 Neutrophils (Bld) [#/Vol] 7.2 10*3/uL 2.0-7.7 [facility] Anion gap in Serum or Plasma Ordered By: Isai Landeros on 11-15-2024 Anion gap [Moles/Vol] 13 mmol/L 5-15 [facility] Automated lymphocyte count a s percentage of total leukocytesOrdered By: Isai Landeros on 11-15-2024 Lymphocytes/100 WBC Auto (Unsp spec) 22.1 % - [facility] BUN/creatinine ratioOrdered By: Isai Landeros on 11-15-2024 Urea nitrogen/Creatinine [Mass ratio] 20.3 mg/mg High 10- [facility] Basic Metabolic Profile (BMP )on 11-15-2024 BUN/CRE 20.3 RATIO High - [facility] Comment on above: Performed By: #### L 500.2500, L100.0100 #### [facility] [address] [place], [address] Calcium [Mass/Vol] 9.9 mg/dL Normal 7.6-11.0 [facility] Comment on above: Performed By: #### L 500.2500, L100.0100 #### [facility] [address] [place], [address] Chloride [Moles/Vol] 102 mmol/L Normal 98-108 [facility] Comment on above: Performed By: #### L 500.2500, L100.0100 #### [facility] [address] [place], [address] CO2 [Moles/Vol] 22.9 mmol/L Normal 21.0-32.0 [facility] Comment on above: Performed By: #### L 500.2500, L100.0100 #### [facility] [address] [place], [address] Creatinine [Mass/Vol] 0.98 mg/dL Normal 0.70-1.20 [facility] Comment on above: Performed By: #### L 500.2500, L100.0100 #### [facility] [address] [place], [address] ECRCL 44.81 ml/min Low 50-250 [facility] Comment on above: Performed By: #### L 500.2500, L100.0100 #### [facility] [address] [place], [address] GAP 13 Normal 5-15 [facility] Comment on above: Performed By: #### L 500.2500, L100.0100 #### [facility] [address] [place], [address] GFR/1.73 sq M.predicted among non-blacks MDRD (S/P/Bld) [Vol rate/Area] 61 mL/min/{1.73_m2} Normal >60 [facility] Comment on above: Result Comment: mL/m in/1.73m2 CKD-EPI Creatinine Equation (2020) Performed By: #### L 500.2500, L100.0100 #### [facility] [address] [place], [address] Glucose [Mass/Vol] 105 mg/dL High 70-99 [facility] Comment on above: Performed By: #### L 500.2500, L100.0100 #### [facility] [address] [place], [address] Potassium [Moles/Vol] 4.3 mmol/L Normal 3.3-5.1 [facility] Comment on above: Performed By: #### L 500.2500, L100.0100 #### [facility] [address] [place], [address] Sodium [Moles/Vol] 138 mmol/L Normal 133-145 [facility] Comment on above: Performed By: #### L 500.2500, L100.0100 #### [facility] [address] [place], [address] Urea nitrogen [Mass/Vol] 20 mg/dL High 4-19 [facility] Comment on above: Performed By: #### L 500.2500, L100.0100 #### [facility] [address] [place], [address] Basophil percentageOrdered B y: Isai Landeros on 11-15-2024 Basophils/100 WBC (Bld) 1.2 % High 0-1 [facility] CBC W/Diff, Automatedon 10-26 Absolute Lymph 2.42 X10 3/uL Normal 0.83-4.51 [facility] Comment on above: Performed By: #### L 500.2500, L100.0100 #### [facility] [address] [place], [address] Absolute Neut 7.2 X10 3/uL Normal 2.0-7.7 [facility] Comment on above: Performed By: #### L 500.2500, L100.0100 #### [facility] [address] [place], [address] Basophils/100 WBC (Bld) 1.2 % High 0-1 [facility] Comment on above: Performed By: #### L 500.2500, L100.0100 #### [facility] [address] [place], [address] Eosinophils/100 WBC (Bld) 2.1 % Normal 0-5 [facility] Comment on above: Performed By: #### L 500.2500, L100.0100 #### [facility] [address] [place], [address] Erythrocyte distribution width (RBC) [Ratio] 13.9 % Normal 11.6-14.6 [facility] Comment on above: Performed By: #### L 500.2500, L100.0100 #### [facility] [address] [place], [address] Hematocrit (Bld) [Volume fraction] 42.0 % Normal 37-47 [facility] Comment on above: Performed By: #### L 500.2500, L100.0100 #### [facility] [address] [place], [address] Hemoglobin (Bld) [Mass/Vol] 14.1 g/dL Normal 12.0-15.0 [facility] Comment on above: Performed By: #### L 500.2500, L100.0100 #### [facility] [address] [place], [address] IG% 0.400 Normal 0.0-0.9 [facility] Comment on above: Result Comment: IG% - Immature Granulocytes (promyelocytes, myelocytes and metamyelocytes) > 1% indicates that a LEFT SHIFT is Present. Performed By: #### L 500.2500, L100.0100 #### [facility] [address] [place], [address] Lymphocytes/100 WBC (Bld) 22.1 % Normal 19-41 [facility] Comment on above: Performed By: #### L 500.2500, L100.0100 #### [facility] [address] [place], [address] MCH (RBC) [Entitic mass] 29.7 pg Normal 27.0-32.0 [facility] Comment on above: Performed By: #### L 500.2500, L100.0100 #### [facility] [address] [place], [address] MCHC (RBC) [Mass/Vol] 33.6 g/dL Normal 32-36 [facility] Comment on above: Performed By: #### L 500.2500, L100.0100 #### [facility] [address] [place], [address] MCV (RBC) [Entitic vol] 88.6 fL Normal 81-99 [facility] Comment on above: Performed By: #### L 500.2500, L100.0100 #### [facility] [address] [place], [address] Monocytes/100 WBC (Bld) 8.1 % Normal 0-10 [facility] Comment on above: Performed By: #### L 500.2500, L100.0100 #### [facility] [address] [place], [address] Neutrophils/100 WBC (Bld) 66.1 % Normal 47-70 [facility] Comment on above: Performed By: #### L 500.2500, L100.0100 #### [facility] [address] [place], [address] Nucleated RBC (Bld) [#/Vol] 0 10*3/uL Normal 0-5 [facility] Comment on above: Performed By: #### L 500.2500, L100.0100 #### [facility] [address] [place], [address] Platelet mean volume (Bld) [Entitic vol] 9.4 fL Normal 6.2-12.0 [facility] Comment on above: Performed By: #### L 500.2500, L100.0100 #### [facility] [address] [place], [address] Platelets (Bld) [#/Vol] 350 10*3/uL Normal 150-450 [facility] Comment on above: Performed By: #### L 500.2500, L100.0100 #### [facility] [address] [place], [address] RBC (Bld) [#/Vol] 4.74 10*6/uL Normal 4.2-5.4 [facility] Comment on above: Performed By: #### L 500.2500, L100.0100 #### [facility] [facility] [address] [place], [address] RDW SD 44.9 fl High 35.1-43.9 [facility] Comment on above: Performed By: #### L 500.2500, L100.0100 #### [facility] [address] [place], [address] WBC (Bld) [#/Vol] 10.9 10*3/uL Normal 4.4-11.0 [facility] Comment on above: Performed By: #### L 500.2500, L100.0100 #### [facility] [address] [place], [address] CNTHERAPYon 11-15-2024 CNTHERAPY OT/PT/Speech Visit (PTWS) LUPIS BRITO ([id number]) 1950 F Date Time Provider Department 11/15/24 8:45 AM ADRIANA SALCEDO Date Time Provider Department Center 11/15/2024 8:45 AM [id number] SALCEDO [facility] Reason for Visit: Appointment Cancelled [1023] Allergies [...] - denosumab 60 mg injection (PROLIA) Normal [facility] Carbon dioxide, total [Moles /volume] in Central venous bloodOrdered By: Isai Landeros on 11-15-2024 CO2 [Moles/Vol] 22.9 mmol/L 21.0-32.0 [facility] Chest 1 View (Portable)on Chest 1 View (Portable) [facility] Imaging Services [address] [place] [address] Chest 1 View (Portable) MR#: [id number] Acct: [id number] Name: LUPIS BRITO Rep #: [id number] : 1950 F 74 From: Ignacio Burgos MD PCP: Dr. Tacos Hein MD Status: [facility] ER Study: Chest 1 View (Portable) Date of Exam: 11/15/24 Exam# [id number] Ordering Dr: Isai Landeros DO EXAM: XR Chest, 1 View CLINICAL INDICATION: SHORTNESS OF BREATH TECHNIQUE: Frontal view of the chest. COMPARISON: No relevant prior studies available. FINDINGS: LUNGS AND PLEURAL SPACES: Unremarkable. No consolidation. No pneumothorax. HEART: Unremarkable. No cardiomegaly. MEDIASTINUM: Unremarkable. Normal mediastinal contour. BONES/JOINTS: Unremarkable. No acute fracture. RAD/Chest 1 View (Portable) IMPRESSION: No acute cardiopulmonary process. Reading Location: [facility] CC: Dr. Isai Landeros DO; Dr. Tacos Hein MD Certified Legal Secretary Specialist: Signed Normal [facility] Chloride assayOrdered By: Rogelio Landeros on 11-15-2024 Chloride [Moles/Vol] 102 mmol/L 98-108 [facility] Emergency Department Summary on 11-15-2024 Emergency Department Summary [facility] Medical Records Department [address] [place] [address] Emergency Department Summary 11/15/24 MR#: [id number] Acct: [id number] Name: LUPIS BRITO Rep #: [id number] : 1950 74 From: Isai Landeros DO PCP: Dr. Tacos Hein MD Status:[facility] ER Location: ED HPI History of Present [...] back. Patient denies any fevers or chills. PFSH PFS Medical History (Updated 11/15/24 @ 12:[address] Isai Landeros, DO) Chronic asthma Elevated troponin Chest pain Asthma Arthritis Home Medications ???Medication ???Instructions ???Recorded ???Last Taken ???Type albuterol sulfate 90 mcg/actuation 2 puff inhalation Q4H PRN Unknown History aerosol inhaler shortness of breath or wheezing denosumab 60 mg/mL subcutaneous 60 mg subcut .[id number] bone health 01/28/24 10/04/24 History syringe (Prolia) [...] (Updated 11/15/24 @ 09:[address] Isai Landeros, DO) Hx of section Hx of rhinoplasty [...] no sensor (more content not included)... Normal [facility] Eosinophil percentageOrdered By: Isai Landeros on 11-15-2024 Eosinophils/100 WBC (Bld) 2.1 % 0-5 [facility] Erythrocyte distribution wid th (RBC) [Ratio]Ordered By: Isai Landeros on 11-15-2024 Erythrocyte distribution width (RBC) [Entitic vol] 44.9 fL High 35.1-43.9 [facility] Erythrocyte distribution wid th ratioOrdered By: Isai Landeros on 11-15-2024 Erythrocyte distribution width (RBC) [Ratio] 13.9 % 11.6-14.6 [facility] Erythrocyte distribution wid th standard deviationOrdered By: Isai Landeros on 11-15-2024 Erythrocyte distribution width (RBC) [Ratio] 44.9 fl High 35.1-43.9 [facility] Estimation of creatinine katiana aranceOrdered By: Isai Landeros on 11-15-2024 Estimated Creatinine Clearance Calc 44.81 ml/min Low 50-250 [facility] GFR/1.73 sq M.predicted adam g non-blacks MDRD (S/P/Bld) [Vol rate/Area]Ordered By: Isai Landeros on 11-15-2024 Estimated GFR (MDRD) Non-Af Amer 61 >60 [facility] Comment on above: mL/min/1.73m2 CKD-EP I Creatinine Equation (2020) Glomerular filtration rate ( GFR) estimation/1.73 sq m using serum, plasma, or whole bOrdered By: Isai Landeros on 11-15-2024 GFR/1.73 sq M.predicted among non-blacks MDRD (S/P/Bld) [Vol rate/Area] 61 mL/min/{1.73_m2} >60 [facility] Comment on above: mL/min/1.73m2 CKD-EP I Creatinine Equation (2020) Hematocrit Auto (Bld) [Volum e fraction]Ordered By: Isai Landeros on 11-15-2024 Hematocrit (Bld) [Volume fraction] 42.0 % 37-47 [facility] Hemoglobin measurementOrdere d By: Isai Landeros on 11-15-2024 Hemoglobin (Bld) [Mass/Vol] 14.1 g/dL 12.0-15.0 [facility] Immature granulocytes/100 WB C Auto (Bld)Ordered By: Isai Landeros on 11-15-2024 Immature granulocytes/100 WBC (Bld) 0.400 % 0.0-0.9 [facility] Comment on above: IG% - Immature Granu locytes (promyelocytes, myelocytes and metamyelocytes) > 1% indicates that a LEFT SHIFT is Present. L499.0042on 11-15-2024 Trop T High Sen 12 ng/L Normal <=14 [facility] Comment on above: Performed By: #### L 499.0042 #### [facility] Laboratory [address] [place], [address] L499.0043on 11-15-2024 Trop T High Sen Normal <=14 [facility] Comment on above: Result Comment: Canc elled via OM: Order cancelled - Patient discharged Performed By: #### L 499.0043 #### [facility] [address] [place], [address] L501.4021on 11-15-2024 Trop T High Sen 7 ng/L Normal <=14 [facility] Comment on above: Performed By: #### L 501.5200, L501.2300 #### [facility] [address] [place], [address] Lymphocytes Auto (Unsp spec) [#/Vol]Ordered By: Isai Landeros on 11-15-2024 Lymphocytes (Bld) [#/Vol] 2.42 10*3/uL 0.83-4.51 [facility] Lymphocytes/100 WBC Auto (Un sp spec)Ordered By: Isai Landeros on 11-15-2024 Lymphocytes/100 WBC (Bld) 22.1 % 19-41 [facility] MCV (mean corpuscular volume ) determinationOrdered By: Isai Landeros on 11-15-2024 MCV (RBC) [Entitic vol] 88.6 fL 81-99 [facility] Mean corpuscular hemoglobin (MCH) determinationOrdered By: Isai Landeros on 11-15-2024 MCH (RBC) [Entitic mass] 29.7 pg 27.0-32.0 [facility] Mean corpuscular hemoglobin concentration (MCHC) determinationOrdered By: Isai Landeros on 11-15-2024 MCHC (RBC) [Mass/Vol] 33.6 g/dL 32-36 [facility] Mean platelet volume determi nationOrdered By: Isai Landeros on 11-15-2024 Platelet mean volume (Bld) [Entitic vol] 9.4 fL 6.2-12.0 [facility] Monocyte percentageOrdered B y: Isai Landeros on 11-15-2024 Monocytes/100 WBC (Bld) 8.1 % 0-10 [facility] Neutrophil percentageOrdered By: Isai Landeros on 11-15-2024 Neutrophils/100 WBC (Bld) 66.1 % 47-70 [facility] Nucleated red blood cell per centageOrdered By: Isai Landeros on 11-15-2024 Nucleated RBC/100 WBC (Bld) [Ratio] 0 % 0-5 [facility] Platelet countOrdered By: Rogelio Landeros on 11-15-2024 Platelets (Bld) [#/Vol] 350 10*3/uL 150-450 [facility] Potassium (Unsp spec) [Mass/ Vol]Ordered By: Isai Landeros on 11-15-2024 Potassium [Moles/Vol] 4.3 mmol/L 3.3-5.1 [facility] Potassium measurement (mass/ volume)Ordered By: Isai Landeros on 11-15-2024 Potassium (Unsp spec) [Mass/Vol] 4.3 mmol/L 3.3-5.1 [facility] RBC Auto (Bld) [#/Vol]Ordere d By: Isai Landeros on 11-15-2024 RBC (Bld) [#/Vol] 4.74 10*6/uL 4.2-5.4 [facility] Serum creatinine measurement (mass/volume)Ordered By: Isai Landeros on 11-15-2024 Creatinine [Mass/Vol] 0.98 mg/dL 0.70-1.20 [facility] Serum glucose measurement (m ass/volume)Ordered By: Isai Landeros on 11-15-2024 Glucose [Mass/Vol] 105 mg/dL High 70-99 [facility] Serum or plasma calcium radha urement (mass/volume)Ordered By: Isai Landeros on 11-15-2024 Calcium [Mass/Vol] 9.9 mg/dL 7.6-11.0 [facility] Serum or plasma urea nitroge n measurement (mass/volume)Ordered By: Isai Landeros on 11-15-2024 Urea nitrogen [Mass/Vol] 20 mg/dL High 4-19 [facility] Sodium levelOrdered By: Isai Landeros on 04-22-2025 Sodium [Moles/Vol] 138 mmol/L 133-145 [facility] Troponin T.cardiac High sens itivity method [Mass/Vol]Ordered By: Isai Landeros on 11-15-2024 Troponin T High Sensitivity 2 Hour 12 ng/L <14 [facility] Troponin T High Sensitivity 7 ng/L <14 [facility] Troponin T.cardiac [Mass/vol ume] in Serum or Plasma by High sensitivity methodOrdered By: Isai Landeros on 11-15-2024 Troponin T.cardiac High sensitivity method [Mass/Vol] 12 ng/L <14 [facility] Troponin T.cardiac High sensitivity method [Mass/Vol] 7 ng/L <14 [facility] White blood cell (WBC) count Ordered By: Isai Landeros on 11-15-2024 WBC (Bld) [#/Vol] 10.9 10*3/uL 4.4-11.0 [facility] CNTHERAPYon 11-08-2024 CNTHERAPY OT/PT/Speech Visit (PTWS) LUPIS BRITO ([id number]) 1950 F Date Time Provider Department 11/08/24 8:45 AM ADRIANA SALCEDO PTCAIO Date Time Provider Department Center 11/08/2024 8:45 AM [id number], MARIAH PTCAIO [facility] Reason for Visit: Physical Therapy [503] Primary [...] - Unknown Date Reviewed: 10/20/2024 Reviewed by: hCarles Meredith MA - Fully Assessed Prescriptions as [...] 11/10/2024 - denosumab 60 mg injection (PROLIA) Studio Grip: Therapy (PT/OT/Speech/Resp) ID: [id number] 11/08/2024 9:29 AM Author: ADRIANA SALCEDO Signed by ADRIANA SALCEDO ENROLLMENT PROCESSOR on 11/08/2024 at 9:29 AM Document text: Program_ID:[id number] Access Code: [email or web address] URL: [email or web address] [email or web address]/ Date: 11-08-2024 Prepared By: Barrera Mejia Program [...] - Seated Thoracic Flexion and Rotation with Pakistani Ball - 1 x daily - 7 x weekly - 2 sets - 10 reps - Supine Lower Trunk Rotation - 1 x daily - 7 x weekly - 2 sets - 10 reps ----- Normal [facility] THERAPY NTon 11-08-2024 THERAPY NT HNO ID: [id number] Author: ADRIANA SALCEDO PTA Service: ? Author Type: Vigoureux Printer Type: Therapy (PT/OT/Speech/Resp) Filed: 11/08/2024 09:29 Note Text: Program_ID:[id number] Access Code: [email or web address] URL: [email or web address]/ Date: 11-08-2024 Prepared By: Barrera Mejia Program [...] - Seated Thoracic Flexion and Rotation with Pakistani Ball - 1 x daily - 7 x weekly - 2 sets - 10 reps - Supine Lower Trunk Rotation - 1 x daily - 7 x weekly - 2 sets - 10 reps Normal [facility] [id number] 10-24-2024 [id number] HNO ID: [id number] Author: BARRERA MEJIA PT Service: ? Author Type: Physical Therapist Type: [id number] Filed: 10/24/2024 10:46 Note Text: [facility] Physical Therapy Plan of Care Certification Patient Name: Lupis Brito : 1950 [facility] #: [id number] Date: 10/24/2024 To: Rody Pablo PA-C From Therapist: Barrera Mejia PT RE: Patient Certification/ Recertification Your review, approval and electronic signature are required in order to comply with Payor: [employer] MEDICARE / Plan: [employer] MEDICARE [...] Planned: 8 Planned Treatment Interventions: Therapeutic exercise (66087), Neuromuscular re-education (91450), Manual therapy (61066), Therapeutic activities (92801), Self-custodial management (55770), Patient/Family/Caregi leonila Education, Body Mechanics Training PLAN [...] reviewed the treatment plan for Lupis Brito, [facility]# [id number] for the period of 10/24/24 -- 01/23/25, established on 10/24/2024. Signature certifies the need for therapy services. Normal [facility] CNTHERAPYon 10-24-2024 CNTHERAPY OT/PT/Speech Visit (PTWS) LUPIS BRITO ([id number]) 1950 F Date Time Provider Department 10/24/24 9:00 AM BARRERA MEJIA PTCAIO Date Time Provider Department Center 10/24/2024 9:00 AM [id number], SEAN PTWS Rashad Purcell Reason for Visit: PT Eval [747] [...] 10/24/2024 - denosumab 60 mg injection (PROLIA) Studio Grip: Addendum Therapy (PT/OT/Speech/Resp) ID: [id number] 10/24/2024 9:38 AM Author: BARRERA MEJIA Signed by BARRERA MEJIA PT on 10/24/2024 at 9:38 AM * * * This document replaces document [id number] * * * Document text: Program_ID:[id number] Access Code: [email or web address] URL: [email or web address] Date: 10-24-2024 Prepared By: Barrera Mejia Program [...] 3 sets - 10 reps ----- Normal [facility] THERAPY NTon 10-24-2024 THERAPY NT HNO ID: [id number] Author: BARRERA MEJIA PT Service: ? Author Type: Physical Therapist Type: Therapy (PT/OT/Speech/Resp) Filed: 10/24/2024 09:38 Note Text: Program_ID:[id number] Access Code: [email or web address] URL: [email or web address] Date: 10-24-2024 Prepared By: Barrera Mejia Program [...] - 3 sets - 10 reps Normal [facility] CNOVSPon 10-20-2024 CNOVSP Visit (SP) Office (HEMAWS) LUPIS BRITO ([id number]) 1950 F Date Time Provider Department 10/20/24 [...] symptoms of peripheral neuropathy. EMG testing at [facility] suggested left and right peroneal neuropathy with evidence of a mild conduction block at the fibular head bilaterally. There was no electrodiagnostic evidence of peripheral polyneuropathy or lumbosacral radiculopathy. Trace proteinuria on urinalysis 08/12/2024. CBC and chemistry panels in July 2024 were unremarkable. Initial consultation: Fatigued, but active. Walks her dog. Goes to [place]. Occasional dizziness. Intermittent dull FISHER. Describes the [...] Family Histo (more content not included)... Normal [facility] MR Lumbar spine WO contrasto n 10-12-2024 IMPRESSION: Multilevel lumbar spine degenerative changes as detailed, without high-grade canal narrowing. Mild to moderate canal narrowing at L1-L2 and L3-L4. Moderate left foraminal narrowing at L3-L4. Additional details as above. Anatomic Lumbar Variant: None. L4-5 is considered the level of the iliac crest and assume there are 5 lumbar-type vertebrae. Certified Legal Secretary Specialist: [facility]ahman Transcribe Date/Time: Oct 12 2024 8:52A Dictated by : SARA SANON MD This examination was interpreted and the report reviewed and electronically signed by: SARA SANON MD on Oct 12 2024 8:59AM [facility] DIVISION OF RADIOLOGY * * *Final Report* * * DATE OF EXAM: Oct 12 2024 7:25AM M 0303 - MRI LUMBAR SPINE WO IVCON [...] Bilateral subarticular recess effacement. Moderate left and ymjp-hz-ldkxprrp right foraminal narrowing. L4-L5: Mild disc bulge. Bilateral facet arthropathy and ligamentous prominence. Bilateral subarticular recess effacement. Mild canal narrowing. Mild to moderate bilateral foraminal narrowing. L5-S1: Mild disc bulge. Small right central annular fissure. Bilateral facet arthropathy. Canal is patent. Bncs-nj-xsvdtpbg right foraminal narrowing. Left foramen is patent. Sacrum and iliac wings: The visualized sacrum and iliac wings are within normal limits. DIVISION OF RADIOLOGY Provider, [facility] - 10/12/2024 * * *Final Report* * * DATE OF EXAM: Oct 12 2024 7:25AM [facility] 0303 - MRI LUMBAR SPINE WO IVCON [...] Bilateral subarticular recess effacement. Moderate left and xhbs-ac-hjiyxonb right foraminal narrowing. L4-L5: Mild disc bulge. Bilateral facet arthropathy and ligamentous prominence. Bilateral subarticular recess effacement. Mild canal narrowing. Mild to moderate bilateral foraminal narrowing. L5-S1: Mild disc bulge. Small right central annular fissure. Bilateral facet arthropathy. Canal is patent. Npbo-qj-qunctedy right foraminal narrowing. Left foramen is patent. [...] and assume there are 5 lumbar-type vertebrae. Certified Legal Secretary Specialist: [facility] Transcribe Date/Time: Oct 12 2024 8:52A Dictated by : SARA SANON MD This examination was interpreted and the report reviewed and electronically signed by: SARA SANON MD on Oct 12 2024 8:59AM EST [facility] Radiology Study observation (narrative) [facility] MR Lumbar spine WO contrastO rdered By: [facility] Provider on 10-12-2024 [facility] MRI LUMBAR SPINE WO IVCONon 10-12-2024 MRI [...] Bilateral subarticular recess effacement. Moderate left and qkwi-hd-iorgjwyt right foraminal narrowing. L4-L5: Mild disc bulge. Bilateral facet arthropathy and ligamentous prominence. Bilateral subarticular recess effacement. Mild canal narrowing. Mild to moderate bilateral foraminal narrowing. L5-S1: Mild disc bulge. Small right central annular fissure. Bilateral facet arthropathy. Canal is patent. Sqkz-cj-isgzqswe right foraminal narrowing. Left foramen is patent. [...] and assume there are 5 lumbar-type vertebrae. Certified Legal Secretary Specialist: [facility] Transcribe Date/Time: Oct 12 2024 8:52A Dictated by : SARA SANON MD This examination was interpreted and the report reviewed and electronically signed by: SARA SANON MD on Oct 12 2024 8:59AM EST [id number] Normal [facility] EMG(NEURO/NI)on 10-07-2024 Results can be seen in attached scanned documents. If you are a patient reviewing this test result, call the doctor who ordered the test with any questions. [facility] MONOCLONAL PROT 24 UR W/INTE RPon 10-07-2024 INTERPRETATION (UMPA) Poorly defined reg ion of restricted mobility [...] monoclonal gammopathy. Clinical correlation is necessary. Normal [facility] Comment on above: Order Comment: Speci men Type: BLOOD SPECIMEN Ordering Facility: [facility] Address: [address] [place] [address] Performed By: #### L [id number] #### [facility] CLIA [id number] [address] [place] [address] [place] STAFF REVIEW (UMPA) Reviewed by Nola Mcclellan MD Normal [facility] Comment on above: Order Comment: Speci men Type: BLOOD SPECIMEN Ordering Facility: [facility] Address: [address] [place] [address] Performed By: #### L [id number] #### [facility] CLIA [id number] [address] [place] [address] [place] UMPA RESULT A poorly defined region of restricted mobility is present that may represent an M protein. Abnormal No M protein is identified. [facility] Comment on above: Order Comment: Speci men Type: BLOOD SPECIMEN Ordering Facility: [facility] Address: [address] [place] [address] Performed By: #### L [id number] #### [facility] CLIA [id number] [address] [place] [address] [place] PROT ELEC UR 24HR W/M SPIKE (P)on 10-07-2024 Albumin/Globulin Elph (24H U) [Mass ratio] 44.72 % Normal [facility] Comment on above: Order Comment: Speci men Type: URINE SPECIMEN Ordering Facility: [facility] Address: [address] [place] [address] Performed By: #### L [id number] #### [facility] CLIA [id number] [address] [place] [address] [place] Alpha 1 globulin Elph (24H U) [Mass fraction] 5.63 % Normal [facility] Comment on above: Order Comment: Speci men Type: URINE SPECIMEN Ordering Facility: [facility] Address: [address] [place] [address] Performed By: #### L [id number] #### [facility] CLIA [id number] [address] [place] [address] [place] Alpha 2 globulin Elph (24H U) [Mass fraction] 11.84 % Normal [facility] Comment on above: Order Comment: Speci men Type: URINE SPECIMEN Ordering Facility: [facility] Address: [address] [place] [address] Performed By: #### L [id number] #### [facility] CLIA [id number] [address] [place] [address] [place] Beta globulin Elph (24H U) [Mass fraction] 23.80 % Normal [facility] Comment on above: Order Comment: Speci men Type: URINE SPECIMEN Ordering Facility: [facility] Address: [address] [place] [address] Performed By: #### L [id number] #### [facility] CLIA [id number] [address] [place] [address] [place] Gamma globulin Elph (24H U) [Mass fraction] 14.01 % Normal [facility] Comment on above: Order Comment: Speci men Type: URINE SPECIMEN Ordering Facility: [facility] Address: [address] [place] [address] Performed By: #### L [id number] #### [facility] CLIA [id number] [address] [place] [address] [place] Protein Fractions Elph Jaya (24H U) [Interp] No definitive M protein is identified on protein electrophoresis. Normal No definitive M protein is identified on protein electrophore sis. [facility] Comment on above: Order Comment: Speci men Type: URINE SPECIMEN Ordering Facility: [facility] Address: [address] [place] [address] Performed By: #### L [id number] #### [facility] CLIA [id number] [address] [place] [address] [place] Protein.monoclonal Elph (24H U) [Mass/Time] 0.00 g/24hr Normal [facility] Comment on above: Order Comment: Speci men Type: URINE SPECIMEN Ordering Facility: [facility] Address: [address] [place], [place] [address] Performed By: #### L [id number] #### [facility] CLIA [id number] [address] [place] [address] OF [place] STAFF REVIEW ([id number]) Reviewed by Nola Mcclellan MD Normal [facility] Comment on above: Order Comment: Speci men Type: URINE SPECIMEN Ordering Facility: [facility] Address: [address] [place] [address] Performed By: #### L [id number] #### [facility] CLIA [id number] [address] [place] [address] [place] Prot 24h Ur-mRateon 10-08-19 25 Protein (24H U) [Mass/Time] 0.13 g/24 Hr Normal <0.15 [facility] Comment on above: Order Comment: Speci men Type: BLOOD SPECIMEN Ordering Facility: [facility] Address: [address] [place] [address] Result Comment: Adul t Proteinuria Categories: <0.15 g/24 hours is considered normal to mildly increased 0.15 - 0.50 g/24 hours is considered moderately increased >0.50 g/24 hours is considered severely increased KDIGO. (2013). KDIGO 2012 Clinical Practice Guideline for the Evaluation and Management of Chronic Kidney Disease. Official Journal of the International Society of Nephrology, 3(1), 1-150. Performed By: #### L [id number] #### [facility] CLIA [id number] [address] [place] [address] [place] Protein (24H U) [Mass/Time]o n 10-07-2024 PERIOD (HRS) 24 hr Normal [facility] Comment on above: Order Comment: Speci men Type: BLOOD SPECIMEN Ordering Facility: [facility] Address: [address] [place] [address] Performed By: #### L [id number] #### [facility] CLIA [id number] [address] [place] [address] [place] Specimen volume (24H U) 2.125 L Normal [facility] Comment on above: Order Comment: Speci men Type: BLOOD SPECIMEN Ordering Facility: [facility] Address: [address] [place] [address] Performed By: #### L [id number] #### [facility] CLIA [id number] [address] [place] [address] OF [facility] CNNURSEon 10-05-2024 CNNURSE Nurse Visit (FAMPWS) LUPIS BRITO ([id number]) 1950 F Date Time Provider Department 10/05/24 2:15 PM [place] NURSE FAMPWS During your visit today, we recorded the following information about you: SUASNNE WEST 10/05/2024 2:22 PM Signed Patient presents for Prolia injection. Denies any problems at this time. Brought own medication. Patient instructed on any SE of medication, verbalized understanding and agreed to proceed with treatment. Tolerated injection well. Susanne West LPN Referring Provider: TACOS HEIN [[id number]] Allergies As of Date: 10/05/2024 Noted Allergy [...] - Unknown Date Reviewed: 10/04/2024 Reviewed by: Masci, Cody A, DO - Fully Assessed Reason for Visit: [...] Status:Closed by SUSANNE WEST on 10/05/24 Normal [facility] CNOVSPon 10-04-2024 CNOVSP Visit (SP) Office (HEMMARGRET) LUPIS BRITO ([id number]) 1950 F Date Time Provider Department 10/04/24 [...] symptoms of peripheral neuropathy. EMG testing at [facility] suggested left and right peroneal neuropathy with [...] Normal appetite. (more content not included)... Normal [facility] IMMUNOFIXATION SCREEN, SERUM on 10-04-2024 MPA RESULT No M protein is identified. Normal No M protein is identified. [facility] Comment on above: Order Comment: Speci men Type: BLOOD SPECIMEN Ordering Facility: [facility] Address: [address] [place], [place] [address] Performed By: #### L [id number] #### [facility] CLIA [id number] [address] [place], [place] [id number] [place] STAFF REVIEW (MPA) Reviewed by Christine Glez M.D., Ph.D Normal [facility] Comment on above: Order Comment: Speci men Type: BLOOD SPECIMEN Ordering Facility: [facility] Address: [address] [place], [place] [address] Performed By: #### L [id number] #### [facility] CLIA [id number] [address] [place], [place] [address] [place] IMMUNOGLOBULINS,IGG,IGA,IGMo n 10-04-2024 IgA [Mass/Vol] 367 mg/dL Normal 70-400 [facility] Comment on above: Order Comment: Speci men Type: BLOOD SPECIMEN Ordering Facility: [facility] Address: [address] [place], [place] [address] Performed By: #### L [id number] #### [facility] CLIA [id number] [address] [place] [address] [place] IgG [Mass/Vol] 1696 mg/dL High 700-1600 [facility] Comment on above: Order Comment: Speci men Type: BLOOD SPECIMEN Ordering Facility: [facility] Address: [address] [place], [place] [address] Performed By: #### L [id number] #### [facility] CLIA [id number] [address] [place], [place] [id number] [place] IgM [Mass/Vol] 94 mg/dL Normal 40-230 [facility] Comment on above: Order Comment: Speci men Type: BLOOD SPECIMEN Ordering Facility: [facility] Address: [address] [place], [place] [address] Performed By: #### L [id number] #### [facility] CLIA [id number] [address] [place] [address] [place] KAPPA/MARSHALL,FREE,SERon 2024 Immunoglobulin light chains.kappa.free (S) [Mass/Vol] 22.4 mg/L High 3.3-19.4 [facility] Comment on above: Order Comment: Speci men Type: BLOOD SPECIMEN Ordering Facility: [facility] Address: [address] [place] [address] Result Comment: Rare ly, increased serum free light chains levels may not be detected or accurately quantified due to prozone phenomenon or in high viscosity samples using this immunoturbidimetric assay. Correlation with other laboratory results and clinical findings is recommended. The [place] Free Light Chain was performed using the Binding Site Optilite immunoturbidimetric method. Result obtained with different assay methods or kits cannot be used interchangeably. Performed By: #### K LFRS #### [facility] CLIA [id number] [address] [place] [address] [place] Immunoglobulin light chains.kappa/Immunoglo bulin light chains.lambda (S) [Mass ratio] 1.38 Normal 0.26-1.65 [facility] Comment on above: Order Comment: Speci men Type: BLOOD SPECIMEN Ordering Facility: [facility] Address: [address] [place] [address] Performed By: #### K LFRS #### [facility] CLIA [id number] [address] [place] [address] [place] Immunoglobulin light chains.lambda.free [Mass/Vol] 16.2 mg/L Normal 5.7-26.3 [facility] Comment on above: Order Comment: Speci men Type: BLOOD SPECIMEN Ordering Facility: [facility] Address: [address] [place] [address] Result Comment: Rare ly, increased serum free [...] interchangeably. Performed By: #### K [id number] #### [facility] CLIA [id number] [address] [place] [address] [place] PROTEIN ELECTROPHORESIS SERU M (P)on 10-04-2024 Albumin [Mass/Vol] 4.41 g/dL Normal 3.43-5.41 [facility] Comment on above: Order Comment: Speci men Type: BLOOD SPECIMEN Ordering Facility: [facility] Address: [address] [place] [address] Performed By: #### L [id number] #### [facility] CLIA [id number] [address] [place] [address] [place] Alpha 1 globulin Elph [Mass/Vol] 0.33 g/dL Normal 0.18-0.43 [facility] Comment on above: Order Comment: Speci men Type: BLOOD SPECIMEN Ordering Facility: [facility] Address: [address] [place] [address] Performed By: #### L [id number] #### [facility] CLIA [id number] [address] [place] [address] [place] Alpha 2 globulin Elph [Mass/Vol] 0.68 g/dL Normal 0.42-0.98 [facility] Comment on above: Order Comment: Speci men Type: BLOOD SPECIMEN Ordering Facility: [facility] Address: [address] [place] [address] Performed By: #### L [id number] #### [facility] CLIA [id number] [address] [place] [address] [place] Beta globulin Elph [Mass/Vol] 0.99 g/dL Normal 0.61-1.17 [facility] Comment on above: Order Comment: Speci men Type: BLOOD SPECIMEN Ordering Facility: [facility] Address: [address] [place] [address] Performed By: #### L [id number] #### [facility] CLIA [id number] [address] [place] [address] [place] Gamma globulin Elph [Mass/Vol] 1.59 g/dL High 0.53-1.51 [facility] Comment on above: Order Comment: Speci men Type: BLOOD SPECIMEN Ordering Facility: [facility] Address: [address] [place] [address] Performed By: #### L [id number] #### [facility] CLIA [id number] [address] [place] [address] [place] INTERPRETATION COMMENT FOR PROTEIN ELECTROPHORESIS The atypical region did not stain on accompanying immunofixation and therefore is unlikely to be a monoclonal immunoglobulin. Normal [facility] Comment on above: Order Comment: Speci men Type: BLOOD SPECIMEN Ordering Facility: [facility] Address: [address] [place] [address] Performed By: #### L [id number] #### [facility] CLIA [id number] [address] [place] [address] [place] M-PROTEIN LOCATION Normal [facility] Comment on above: Order Comment: Speci men Type: BLOOD SPECIMEN Ordering Facility: [facility] Address: [address] [place] [address] Result Comment: Not Applicable. Performed By: #### L [id number] #### [facility] CLIA [id number] [address] [place] [address] [place] Protein Fractions [Interp] An atypical region of restricted mobility is identified on protein electrophoresis. Abnormal No definitive M protein is identified on protein electrophore sis. [facility] Comment on above: Order Comment: Speci men Type: BLOOD SPECIMEN Ordering Facility: [facility] Address: [address] [place] [address] Performed By: #### L [id number] #### [facility] CLIA [id number] [address] Protein.monoclonal Elph [Mass/Vol] 0.00 g/dL Normal <=0.00 [facility] Comment on above: Order Comment: Speci men Type: BLOOD SPECIMEN Ordering Facility: [facility] Address: [address] [place] [address] Performed By: #### L [id number] #### [facility] CLIA [id number] [address] [place] [address] OF [facility] SPE STAFF REVIEW Reviewed by Nola Mcclellan MD [facility] Comment on above: Order Comment: Speci men Type: BLOOD SPECIMEN Ordering Facility: [facility] Address: [address] [place] [address] Performed By: #### L [id number] #### [facility] CLIA [id number] [address] [place] [address] OF [facility] Prot SerPl-mCncon 10-04-2024 Protein [Mass/Vol] 8.0 g/dL Normal 6.3-8.0 [facility] Comment on above: Order Comment: Speci men Type: BLOOD SPECIMEN Ordering Facility: [facility] Address: [address] [place] [address] Performed By: #### L [id number] #### [facility] CLIA [id number] [address] [place] [address] [facility]UP[facility]ITO ([id number]) 1950 F Date Time Provider Department 09/22/[facility] During your visit today, we recorded the following information about you: SUSANNE WEST 09/22/2024 1:29 PM Signed Patient scheduled for nurse visit 09/1224 to receive Prolia injection. Please place order at this time. Susanne West LPN Allergies As of Date: 09/22/2024 Noted Allergy [...] Encounter Status:Closed by TACOS HEIN on 09/22/24 [facility] Sai 09-20-2024 [facility] Telephone (NIQ) DARYLLUPIS Sandoval ([id number]) 1950 F Date Time Provider Department 09/20/24 RODY PABLO [facility] During your visit today, we recorded the following information about you: karlaPriscila Cole 09/20/2024 9:22 AM Signed Patient is calling [...] due to the protocols done at the [facility] and reports at [facility] do not include the specific measurements in the report so this makes it difficult to interpret the results. PHUONG Meyer Samaria, LPN 09/23/2024 10:05 AM Signed Called patient, no answer. [facility] sent Sajant. 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] Order(s):CONSULT TO HEMATOLOGY/ONCOLOGY [[id number]] Order #: [id number]: [id number] FUTURE Prescriptions as of 09/26/2024 - [...] Encounter Status:Closed by SABA CRUZ on 09/23/24 [facility] BD DXA - AXIAL SKELETONon BD DXA - AXIAL SKELETON * * *Final Report* * * DATE OF EXAM: Sep 19 2024 11:55AM [facility] 08 - DXA - AXIAL SKELETON / PROCEDURE REASON: Osteoporosis, unspecified osteoporosis type, unspecified pathological fracture p * * * * Physician Interpretation * * * * EXAMINATION: DXA BONE DENSITOMETRY BD DXA - AXIAL SKELETON, BD DXA TRABECLR BONE SCORE (TBS) PATIENT DEMOGRAPHICS: Age: 74 years, Gender: Female SCANNER INFORMATION: DXA Model: IMT ([employer])wn - SingOn C 11384 Date Scanned: 09/19/2024 11:55 AM CLINICAL HISTORY: [...] FOR MORE INFORMATION ABOUT DIAGNOSIS AND TREATMENT: [facility] for Osteoporosis and Metabolic Bone Disease:? www.ccf.org/arthritis /osteo National Osteoporosis Foundation:? www.nof.org International Society of Clinical Densitometry www.iscd.org Certified Legal Secretary Specialist: JOHNATHAN Transcribe Date/Time: Sep 19 2024 2:35P Dictated by : ALEJANDRA LMAB MD This examination was interpreted and the report reviewed and electronically signed by: ALEJANDRA LAMB MD on Sep 19 2024 2:37PM EST [id number] N -3.1 Normal [facility] BD DXA TRABECLR BONE SCORE ( TBS)on 09-19-2024 BD DXA TRABECLR BONE SCORE (TBS) * * *Final Report* * * DATE OF EXAM: Sep 19 2024 11:55AM [facility] 0801 - BD DXA TRABECLR BONE SCORE (TBS) / PROCEDURE REASON: Osteoporosis, unspecified osteoporosis type, unspecified pathological fracture p * * * * Physician Interpretation * * * * EXAMINATION: DXA BONE DENSITOMETRY BD DXA - AXIAL SKELETON, BD DXA TRABECLR BONE SCORE (TBS) PATIENT DEMOGRAPHICS: Age: 74 years, Gender: Female SCANNER INFORMATION: DXA Model: [employer]Networks - [employer] C 98544 Date Scanned: 09/19/2024 11:55 AM CLINICAL HISTORY: [...] FOR MORE INFORMATION ABOUT DIAGNOSIS AND TREATMENT: [facility]osis and Metabolic Bone Disease:? www.ccf.org/arthritis /osteo National Osteoporosis Foundation:? www.nof.org International Society of Clinical Densitometry www.iscd.org Certified Legal Secretary Specialist: JOHNATHAN Transcribe Date/Time: Sep 19 2024 2:35P Dictated by : ALEJANDRA LAMB MD This examination was interpreted and the report reviewed and electronically signed by: ALEJANDRA LAMB MD on Sep 19 2024 2:37PM EST [id number] N -3.1 Normal [facility] DXA Femur [T-score] Bone den doroteo 09-19-2024 * * *Final Report* * * [...] years, Gender: Female SCANNER INFORMATION: DXA Model: 42Networks - SingOn C 83949 Date Scanned: 09/19/2024 11:55 AM CLINICAL HISTORY: [...] (1.231 - 1.310) DIVISION OF RADIOLOGY Provider, Leilani Byrd - 09/19/2024 * * *Final Report* * [...] years, Gender: Female SCANNER INFORMATION: DXA Model: 42Networks - SingOn C 85438 Date Scanned: 09/19/2024 11:55 AM CLINICAL HISTORY: [...] FOR MORE INFORMATION ABOUT DIAGNOSIS AND TREATMENT: [facility]osis and Metabolic Bone Disease:? www.ccf.org/arthritis /osteo National Osteoporosis Foundation:? www.nof.org International Society of Clinical Densitometry www.iscd.org Certified Legal Secretary Specialist: JOHNATHAN Transcribe Date/Time: Sep 19 2024 2:35P Dictated by : ALEJANDRA LAMB MD This examination was interpreted and the report reviewed and electronically signed by: ALEJANDRA LAMB MD on Sep 19 2024 2:37PM EST [facility] DXA Skeletal system.axial Vi ews for bone densityon 09-19-2024 * * *Final Report* * * DATE OF EXAM: Sep 19 2024 11:55AM [facility] 0804 - BD DXA - AXIAL SKELETON / PROCEDURE REASON: Osteoporosis, unspecified osteoporosis type, unspecified pathological fracture p * * * * Physician Interpretation * * * * EXAMINATION: DXA BONE DENSITOMETRY BD DXA - AXIAL SKELETON, BD DXA TRABECLR BONE SCORE (TBS) PATIENT DEMOGRAPHICS: Age: 74 years, Gender: Female SCANNER INFORMATION: DXA Model: 42Networks - SingOn C 03047 Date Scanned: 09/19/2024 11:55 AM CLINICAL HISTORY: [...] (1.231 - 1.310) DIVISION OF RADIOLOGY Provider, [facility] - 09/19/2024 * * *Final Report* * * DATE OF EXAM: Sep 19 2024 11:55AM [facility] 0804 - DXA - AXIAL SKELETON / PROCEDURE REASON: Osteoporosis, unspecified osteoporosis type, unspecified pathological fracture p * * * * Physician Interpretation * * * * EXAMINATION: DXA BONE DENSITOMETRY BD DXA - AXIAL SKELETON, BD DXA TRABECLR BONE SCORE (TBS) PATIENT DEMOGRAPHICS: Age: 74 years, Gender: Female SCANNER INFORMATION: DXA Model: IMT ([employer])wn - SingOn C 63556 Date Scanned: 09/19/2024 11:55 AM CLINICAL HISTORY: [...] FOR MORE INFORMATION ABOUT DIAGNOSIS AND TREATMENT: [facility] Osteoporosis and Metabolic Bone Disease:? www.ccf.org/arthritis /osteo National Osteoporosis Foundation:? www.nof.org International Society of Clinical Densitometry www.iscd.org Certified Legal Secretary Specialist: JOHNATHAN Transcribe Date/Time: Sep 19 2024 2:35P Dictated by : ALEJANDRA LAMB MD This examination was interpreted and the report reviewed and electronically signed by: ALEJANDRA LAMB MD on Sep 19 2024 2:37PM EST [facility] No Panel InformationOrdered By: [facility] Provider on 09-19-2024 LOWEST T-SCORE -3.1 [facility] No Panel Informationon 09-19 IMPRESSION: THE LOWEST [...] FOR MORE INFORMATION ABOUT DIAGNOSIS AND TREATMENT: [facility] Osteoporosis and Metabolic Bone Disease:? www.ccf.org/arthritis /osteo National Osteoporosis Foundation:? www.nof.org International Society of Clinical Densitometry www.iscd.org Certified Legal Secretary Specialist: JOHNATHAN Transcribe Date/Time: Sep 19 2024 2:35P Dictated by : ALEJANDRA LAMB MD This examination was interpreted and the report reviewed and electronically signed by: ALEJANDRA LAMB MD on Sep 19 2024 2:37PM [facility] DIVISION OF RADIOLOGY Radiology Study observation (narrative) [facility] CNOVon 09-13-2024 CNOV Office Visit (NEMOWS ) LUPIS BRITO ([id number]) 1950 F Date Time Provider Department 09/13/24 9:00 AM RODY PABLO During your visit today, we recorded the following information about you: Blood pressure Weight 111/77 58.3 kg Rody Pablo PA-C 09/13/2024 9:52 AM Signed [facility] Name: Lupis Nick Daryl Age: [age] year old Gender: female Primary [...] later started on the right. Notes constant qwbb-ebb-cexbscp and a dull ache to the toes on the bottom which occasionally radiates to the heel but does not go to the top of the foot, ankle or up the leg. Has chronic lumbar issues for which she sees pain management for. Had an EMG done at [facility], but does not show any readings, describes [...] ELECTROPHORESIS SERUM W/INTERP C-REACTIVE PROTEIN SEDIMENTATION RATE, ELBAREN 2. 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 No symptoms [...] Insomnia Inflammatory (more content not included)... Normal [facility] CRP SerPl-mCncon 09-13-2024 CRP [Mass/Vol] 0.5 mg/dL Normal <0.9 [facility] Comment on above: Order Comment: Speci men Type: BLOOD SPECIMENOrdering Facility: [facility] Address: [address] [place] [address] Performed By: #### 1 988-5, 2885-2 ####[facility] [id number] [place] [address] [place] ESR Westergren method (Bld) [Velocity]on 09-13-2024 ESR (Bld) [Velocity] 27 mm/h High 0-20 [facility] Comment on above: Order Comment: Speci men Type: BLOOD SPECIMEN Ordering Facility: [facility] Address: [address] [place] [address] Performed By: #### L [id number] #### [facility] CLIA [id number] [address] [place] [address] [place] PROTEIN ELECTROPHORESIS SERU M (P)on 09-13-2024 Albumin [Mass/Vol] 4.40 g/dL Normal 3.43-5.41 [facility] Comment on above: Order Comment: Speci men Type: BLOOD SPECIMEN Ordering Facility[facility] Address: [address] [place] [address] Performed By: #### L [id number] #### [facility] CLIA [id number] [address] [place] [address] [place] Alpha 1 globulin Elph [Mass/Vol] 0.31 g/dL Normal 0.18-0.43 [facility] Comment on above: Order Comment: Speci men Type: BLOOD SPECIMEN Ordering Facility: [facility] Address: [address] [place] [address] Performed By: #### L [id number] #### [facility] CLIA [id number] [address] [place] [address] [place] Alpha 2 globulin Elph [Mass/Vol] 0.68 g/dL Normal 0.42-0.98 [facility] Comment on above: Order Comment: Speci men Type: BLOOD SPECIMEN Ordering Facility: [facility] Address: [address] [place] [address] Performed By: #### L [id number] #### [facility] CLIA [id number] [address] [place] [address] [place] Beta globulin Elph [Mass/Vol] 1.00 g/dL Normal 0.61-1.17 [facility] Comment on above: Order Comment: Speci men Type: BLOOD SPECIMEN Ordering Facility: [facility] Address: [address] [place] [address] Performed By: #### L [id number] #### [facility] CLIA [id number] [address] [place] [address] [place] Gamma globulin Elph [Mass/Vol] 1.52 g/dL High 0.53-1.51 [facility] Comment on above: Order Comment: Carmela silva Type: BLOOD SPECIMEN Ordering Facility: [facility] Address: [address] [place] [address] Performed By: #### L [id number] #### [facility] CLIA [id number] [address] [place] [address] [place] INTERPRETATION COMMENT FOR PROTEIN ELECTROPHORESIS The atypical region is relatively poorly defined and may represent an unusual presentation of polyclonal immunoglobulins, but cannot rule out the presence of a low level M protein. If clinically indicated, monoclonal protein analysis and serum free light chain analysis are suggested to evaluate further for monoclonal gammopathy. Normal [facility] Comment on above: Order Comment: Carmela silva Type: BLOOD SPECIMEN Ordering Facility: [facility] Address: [address] [place] [address] Performed By: #### L [id number] #### [facility] CLIA [id number] [address] [place] [address] STATES OF [facility] M-PROTEIN LOCATION Normal [facility] Comment on above: Order Comment: Carmela silva Type: BLOOD SPECIMEN Ordering Facility: [facility] Address: [address] [place] [address] Result Comment: Not Applicable. Performed By: #### L [id number] #### [facility] CLIA [id number] [address] [place] [address] [place] Protein Fractions [Interp] An atypical region of restricted mobility is identified on protein electrophoresis. Abnormal No definitive M protein is identified on protein electrophore sis. [facility] Comment on above: Order Comment: Carmela silva Type: BLOOD SPECIMEN Ordering Facility: [facility] Address: [address] [place] [address] Performed By: #### L [id number] #### [facility] CLIA [id number] [address] [place] [address] [place] Protein.monoclonal Elph [Mass/Vol] 0.00 g/dL Normal <=0.00 [facility] Comment on above: Order Comment: Speci men Type: BLOOD SPECIMEN Ordering Facility: [facility] Address: [address] [place] [address] Performed By: #### L [id number] #### [facility] CLIA [id number] [address] [place] [address] [place] SPE STAFF REVIEW Reviewed by Christine Glez M.D., Ph.D Normal [facility] Comment on above: Order Comment: Speci men Type: BLOOD SPECIMEN Ordering [facility] Address: [address] [place] [address] Performed By: #### L [id number] #### [facility] CLIA [id number] [address] [place] [address] [place] Prot SerPl-mCncon 09-13-2024 Protein [Mass/Vol] 7.9 g/dL Normal 6.3-8.0 [facility] Comment on above: Order Comment: Speci men Type: BLOOD SPECIMENOrdering Facility: [facility] Address: [address] [place] [address] Performed By: #### 1 988-5, 2885-2 ####[facility] [id number] [place] [address] [place] VITAMIN B1 (THIAMINE), WHOLE BLOODon 09-13-2024 Thiamine (Bld) [Moles/Vol] 224.1 nmol/L High 84.3-213.3 [facility] Comment on above: Order Comment: Speci men Type: BLOOD SPECIMEN Order[facility] Address: [address] [place] [address] Result Comment: This assay measures the concentration of thiamine diphosphate (TDP), the primary active form of vitamin B1. Approximately 90 percent of vitamin B1 present in whole blood is TDP. Thiamine and thiamine monophosphate, which comprise the remaining 10 percent, are not measured. This test was developed, and its performance characteristics determined by the [facility] Department of Pathology and Laboratory Medicine. It has not been cleared or approved by the FDA. The [facility] Department of Pathology and Laboratory Medicine is regulated under CLIA as qualified to perform high-complexity testing. This test is used for clinical purposes. It should not be regarded as investigational or for research. Performed By: #### L [id number] #### [facility] CLIA [id number] [address] [place] [address] [place] VITAMIN B6/PYRIDOXINon 09-13 VITAMIN B6 177.0 nmol/L High 20.0-125.0 [facility] Comment on above: Order Comment: Speci men Type: URINE SPECIMEN Ordering Facility[facility] Address: [address] [place] [address] Result Comment: INTE RPRETIVE INFORMATION: Vitamin B6 (Pyridoxal 5-Phosphate) Pyridoxal 5'-phosphate measured in a specimen collected following an 8-hour or overnight fast accurately indicates vitamin B6 nutritional status. Non-fasting specimen concentration reflects recent vitamin intake. This test was developed and its performance characteristics determined by [employer]. It has not been cleared or approved by the US Food and Drug Administration. This test was performed in a CLIA certified laboratory and is intended for clinical purposes. Performed By: [employer] [facility] [address] [place] [address] [employer] Developer: Aman Aldridge MD, PhD [place] Number: [id number] Performed By: #### L [id number] #### [facility] CLIA [id number] [address] [place] [address] [place] CNPNon 09-01-2024 CNPN Telephone (FAMPWS) LUPIS BRITO ([id number]) 1950 F Date Time Provider Department 09/01/24 TACOS HEIN FAMPWS During your visit today, we recorded the following information about you: Prosper Rodriguez LPN 09/01/2024 7:10 AM Signed Received EMG/NCS report from [facility] ordered by PCP. Prosper Rodriguez LPN Scan [...] [G57.30] Order(s):CONSULT TO NEUROLOGY [9019] Order #: [id number]: 1 FUTURE Prescriptions as of 09/01/2024 - [...] Status:Closed by KYARA GAO on 09/01/24 Normal [facility] NCS and/or EMG Patienton NCS and/or EMG Patient [facility] Pulmonary Services/Neurology [address] [place] [address] MR#: [id number] Acct: [id number] Name: LUPIS BRITO Rep #: [id number] : 1950 74 From: Jackson Mcallister MD [...] Multi Select Codes Neurology Neurology Interp Codes: 07364-10 Musc test done w/n test comp (interp) (2) and 42129-85 Nrv cndj test 9-10 studies (interp) 08/31/24 1434 Date Jackson Mcallister MD CC: Dr. Jackson Mcallister MD; Dr. Tacos Hein MD Date Dictated: 08/31/241429 Date Transcribed: 08/31/241429 Certified Legal Secretary Specialist: MCKENNA Signed [facility] 08-22-2024 [facility] Telephone (FAMPWS) ZAFARLUPIS MERCADO ([id number]) 1950 F Date Time Provider Department 08/22/24 [...] MA 08/22/2024 3:27 PM Signed Re-faxed to [facility]. Jeannie Pool MA Allergies As of Date: [...] Encounter Status:Closed by JEANNIE POOL on 08/22/24 [facility]Non [facility] LUPIS BRITO ([id number]) 1950 F Date Time Provider Department 08/17/24 TACOS HEIN During your visit today, we [...] Encounter Status:Closed by PROSPER RODRIGUEZ on 08/17/24 [facility] CNOVon 08-16-2024 CNOV Office Visit (FAMPWS ) LUPIS BRITO ([id number]) 1950 Date Time Provider Department 08/16/24 10:40 AM [facility] your visit today, we recorded the [...] General (Family Medicine) Tess Navarrete APRN.CNP as Senior Microstrategy Developer (Family Medicine) Madison Mariee PA-C as Senior Microstrategy Developer (Family Medicine) Dr. Sage: Pulm Medical/Family history [...] Comments Accelerate (more content not included)... Normal [facility] Folate SerPl-mCncon 08-16-19 25 Folate [Mass/Vol] ng/mL Normal >4.7 [facility] Comment on above: Order Comment: Speci men Type: BLOOD SPECIMEN [facility] Facility[facility] Address: [address] [place] [address] Result Comment: A re sult of > 20 ng/mL is not necessarily indicative of a pathologic or treatable condition: it reflects a limitation of the test methodology. Assay reference range: 4.8 to 24.2 ng/mL. Suitable for detection of folate deficiency. Reference: Folate III (Folate III) [package insert V 1.0 Gambian]. [facility], [place], [place]: May 2015. Performed By: #### K LFRS #### [facility] CLIA [id number] [address] [place] [address] [place] T4 Free SerPl-mCncon 025 Free T4 [Mass/Vol] 1.3 ng/dL Normal 0.9-1.7 [facility] Comment on above: Order Comment: Speci men Type: BLOOD SPECIMEN Ordering Facility: [facility] Address: [address] [place] [address] Performed By: #### K LFRS #### [facility] CLIA [id number] [address] [place] [address] [place] TSH SerPl-aCncon 08-16-2024 TSH Qn 2.080 m[IU]/L Normal 0.270-4.200 [facility] Comment on above: Order Comment: Speci men Type: BLOOD SPECIMEN Ordering Facility: [facility] Address: [address] [place] [address] Performed By: #### L [id number] #### [facility] CLIA [id number] [address] [place] [address] [place] Vit B12 SerPl-mCncon 025 Cobalamin (Vitamin B12) [Mass/Vol] 1711 pg/mL High 232-1245 [facility] Comment on above: Order Comment: Speci men Type: BLOOD SPECIMEN Ordering Facility: [facility] Address: [address] [place] [address] Performed By: #### K LFRS #### [facility] CLIA [id number] [address] [place] [address] [place] 25(OH)D3 SerPl-mCncon 2024 25-hydroxyvitamin D3 [Mass/Vol] 37.6 ng/mL Normal 31.0-80.0 [facility] Comment on above: Order Comment: Speci men Type: URINE SPECIMEN Ordering Facility: [facility] Address: [address] [place] [address] Result Comment: Clas sification of 25 [place] Vitamin D status: Deficiency/Insufficiency: < or = 30 ng/ml. Sufficiency/Optimal Levels: 31-80 ng/mL Toxicity: > 100 ng/mL. Test performed by chemiluminescent immunoassay. Performed By: #### L [id number] #### [facility] CLIA [id number] [address] [place] [address] [place] CBC W Auto Differential pane l (Bld)on 08-12-2024 Basophils (Bld) [#/Vol] 0.10 10*3/uL Normal <0.11 [facility] Comment on above: Order Comment: Speci men Type: BLOOD SPECIMEN Ordering Facility: [facility] Address: [address] [place] [address] Performed By: #### L [id number] #### [facility] CLIA [id number] [address] [place] [address] [place] Basophils/100 WBC (Bld) 1.3 % Normal [facility] Comment on above: Order Comment: Speci men Type: BLOOD SPECIMEN Ordering Facility: [facility] Address: [address] [place] [address] Performed By: #### L [id number] #### [facility] CLIA [id number] [address] [place] [address] [place] Differential cell count method Nom (Bld) Auto Normal [facility] Comment on above: Order Comment: Speci men Type: BLOOD SPECIMEN Ordering Facility: [facility] Address: [address] [place] [address] Performed By: #### L [id number] #### [facility] CLIA [id number] [address] [place] [address] [place] Eosinophils (Bld) [#/Vol] 0.28 10*3/uL Normal <0.46 [facility] Comment on above: Order Comment: Speci men Type: BLOOD SPECIMEN Ordering Facility: [facility] Address: [address] [place] [address] Performed By: #### L [id number] #### [facility] CLIA [id number] [address] [place] [address] [place] Eosinophils/100 WBC (Bld) 3.6 % Normal [facility] Comment on above: Order Comment: Speci men Type: BLOOD SPECIMEN Ordering Facility: [facility] Address: [address] [place] [address] Performed By: #### L [id number] #### [facility] CLIA [id number] [address] [place] [address] [place] Erythrocyte distribution width (RBC) [Ratio] 13.0 % Normal 11.5-15.0 [facility] Comment on above: Order Comment: Speci men Type: BLOOD SPECIMEN Ordering Facility: [facility] Address: [address] [place] [address] Performed By: #### L [id number] #### [facility] CLIA [id number] [address] [place] [address] [place] Hematocrit (Bld) [Volume fraction] 39.8 % Normal 36.0-46.0 [facility] Comment on above: Order Comment: Speci men Type: BLOOD SPECIMEN Ordering Facility: [facility] Address: [address] [place] [address] Performed By: #### L [id number] #### [facility] CLIA [id number] [address] [place] [address] [place] Hemoglobin (Bld) [Mass/Vol] 12.7 g/dL Normal 11.5-15.5 [facility] Comment on above: Order Comment: Speci men Type: BLOOD SPECIMEN Ordering Facility: [facility] Address: [address] [place] [address] Performed By: #### L [id number] #### [facility] CLIA [id number] [address] [place] [address] [place] Immature granulocytes (Bld) [#/Vol] 0.03 10*3/uL Normal <0.10 [facility] Comment on above: Order Comment: Speci men Type: BLOOD SPECIMEN Ordering Facility: [facility] Address: [address] [place] [address] Performed By: #### L [id number] #### [facility] CLIA [id number] [address] [place] [address] [place] Immature granulocytes/100 WBC (Bld) 0.4 % Normal [facility] Comment on above: Order Comment: Speci men Type: BLOOD SPECIMEN Ordering Facility: [facility] Address: [address] [place] [address] Performed By: #### L [id number] #### [facility] CLIA [id number] [address] [place] [address] [place] Lymphocytes (Bld) [#/Vol] 2.12 10*3/uL Normal 1.00-4.00 [facility] Comment on above: Order Comment: Speci men Type: BLOOD SPECIMEN Ordering Facility: [facility] Address: [address] [place] [address] Performed By: #### L [id number] #### [facility] CLIA [id number] [address] [place] [address] [place] Lymphocytes/100 WBC (Bld) 27.0 % Normal [facility] Comment on above: Order Comment: Speci men Type: BLOOD SPECIMEN Ordering Facility: [facility] Address: [address] [place] [address] Performed By: #### L [id number] #### [facility] CLIA [id number] [address] [place] [address] [place] MCH (RBC) [Entitic mass] 29.5 pg Normal 26.0-34.0 [facility] Comment on above: Order Comment: Speci men Type: BLOOD SPECIMEN Ordering Facility: [facility] Address: [address] [place] [address] Performed By: #### L [id number] #### [facility] CLIA [id number] [address] [place] [address] [place] MCHC (RBC) [Mass/Vol] 31.9 g/dL Normal 30.5-36.0 [facility] Comment on above: Order Comment: Speci men Type: BLOOD SPECIMEN Ordering Facility: [facility] Address: [address] [place] [address] Performed By: #### L [id number] #### [facility] CLIA [id number] [address] [place] [address] [place] MCV (RBC) [Entitic vol] 92.3 fL Normal 80.0-100.0 [facility] Comment on above: Order Comment: Speci men Type: BLOOD SPECIMEN Ordering Facility: [facility] Address: [address] [place] [address] Performed By: #### L [id number] #### [facility] CLIA [id number] [address] [place] [address] [place] Monocytes (Bld) [#/Vol] 0.76 10*3/uL Normal <0.87 [facility] Comment on above: Order Comment: Speci men Type: BLOOD SPECIMEN Ordering Facility: [facility] Address: [address] [place] [address] Performed By: #### L [id number] #### [facility] CLIA [id number] [address] [place] [address] [place] Monocytes/100 WBC (Bld) 9.7 % Normal [facility] Comment on above: Order Comment: Speci men Type: BLOOD SPECIMEN Ordering Facility: [facility] Address: [address] [place] [address] Performed By: #### L [id number] #### [facility] CLIA [id number] [address] [place] [address] [place] Neutrophils (Bld) [#/Vol] 4.56 10*3/uL Normal 1.45-7.50 [facility] Comment on above: Order Comment: Speci men Type: BLOOD SPECIMEN Ordering Facility: [facility] Address: [address] [place] [address] Performed By: #### L [id number] #### [facility] CLIA [id number] [address] [place] [address] [place] Neutrophils/100 WBC (Bld) 58.0 % Normal [facility] Comment on above: Order Comment: Speci men Type: BLOOD SPECIMEN Ordering Facility: [facility] Address: [address] [place] [address] Performed By: #### L [id number] #### [facility] CLIA [id number] [address] [place] [address] [place] Nucleated RBC (Bld) [#/Vol] 10*3/uL Normal <0.01 [facility] Comment on above: Order Comment: Speci men Type: BLOOD SPECIMEN Ordering Facility: [facility] Address: [address] [place] [address] Performed By: #### L [id number] #### [facility] CLIA [id number] [address] [place] [address] [place] Nucleated RBC/100 WBC (Bld) [Ratio] 0.0 /100 WBC Normal [facility] Comment on above: Order Comment: Speci men Type: BLOOD SPECIMEN Ordering Facility: [facility] Address: [address] [place] [address] Performed By: #### L [id number] #### [facility] CLIA [id number] [address] [place] [address] [place] Platelet mean volume (Bld) [Entitic vol] 9.6 fL Normal 9.0-12.7 [facility] Comment on above: Order Comment: Speci men Type: BLOOD SPECIMEN Ordering Facility: [facility] Address: [address] [place] [address] Performed By: #### L [id number] #### [facility] CLIA [id number] [address] [place] [address] [place] Platelets (Bld) [#/Vol] 288 10*3/uL Normal 150-400 [facility] Comment on above: Order Comment: Speci men Type: BLOOD SPECIMEN Ordering Facility: [facility] Address: [address] [place] [address] Performed By: #### L [id number] #### [facility] CLIA [id number] [address] [place] [address] [place] RBC (Bld) [#/Vol] 4.31 10*6/uL Normal 3.90-5.20 [facility] Comment on above: Order Comment: Speci men Type: BLOOD SPECIMEN Ordering Facility: [facility] Address: [address] [place] [address] Performed By: #### L [id number] #### [facility] CLIA [id number] [address] [place] [address] [place] WBC (Bld) [#/Vol] 7.85 10*3/uL Normal 3.70-11.00 [facility] Comment on above: Order Comment: Speci men Type: BLOOD SPECIMEN Ordering Facility: [facility] Address: [address] [place] [address] Performed By: #### L [id number] #### [facility] CLIA [id number] [address] [place] [address] [place] Comprehensive metabolic 2000 panelon 08-12-2024 Albumin [Mass/Vol] 4.3 g/dL Normal 3.9-4.9 [facility] Comment on above: Order Comment: Speci men Type: BLOOD SPECIMEN Ordering Facility: [facility] Address: [address] [place] [address] Performed By: #### 2 4323-8, LIPNF #### [facility] CLIA [id number] [address] [place] [address] [place] ALP [Catalytic activity/Vol] 62 U/L Normal 34-123 [facility] Comment on above: Order Comment: Speci men Type: BLOOD SPECIMEN Ordering Facility: [facility] Address: [address] [place] [address] Performed By: #### 2 4323-8, LIPNF #### [facility] CLIA [id number] [address] [place] [address] [place] ALT [Catalytic activity/Vol] 13 U/L Normal 7-38 [facility] Comment on above: Order Comment: Speci men Type: BLOOD SPECIMEN Ordering Facility: [facility] Address: [address] [place] [address] Performed By: #### 2 4323-8, LIPNF #### [facility] CLIA [id number] [address] [place] [address] [place] Anion gap [Moles/Vol] 13 mmol/L Normal 8-15 [facility] Comment on above: Order Comment: Speci men Type: BLOOD SPECIMEN Ordering Facility: [facility] Address: [address] [place] [address] Performed By: #### 2 4323-8, LIPNF #### [facility] CLIA [id number] [address] [place] [address] [place] AST [Catalytic activity/Vol] 25 U/L Normal 13-35 [facility] Comment on above: Order Comment: Speci men Type: BLOOD SPECIMEN Ordering Facility: [facility] Address: [address] [place] [address] Performed By: #### 2 4323-8, LIPNF #### [facility] CLIA [id number] [address] [place] [address] [place] Bilirubin [Mass/Vol] 0.4 mg/dL Normal 0.2-1.3 [facility] Comment on above: Order Comment: Speci men Type: BLOOD SPECIMEN Ordering Facility: [facility] Address: [address] [place] [address] Performed By: #### 2 4323-8, LIPNF #### [facility] CLIA [id number] [address] [place] [address] [place] Calcium [Mass/Vol] 9.8 mg/dL Normal 8.5-10.2 [facility] Comment on above: Order Comment: Speci men Type: BLOOD SPECIMEN Ordering Facility: [facility] Address: [address] [place] [address] Performed By: #### 2 4323-8, LIPNF #### [facility] CLIA [id number] [address] [place] [address] [place] Chloride [Moles/Vol] 100 mmol/L Normal 98-107 [facility] Comment on above: Order Comment: Speci men Type: BLOOD SPECIMEN Ordering Facility: [facility] Address: [address] [place] [address] Performed By: #### 2 4323-8, LIPNF #### [facility] CLIA [id number] [address] [place] [address] [place] CO2 [Moles/Vol] 27 mmol/L Normal 22-30 [facility] Comment on above: Order Comment: Speci men Type: BLOOD SPECIMEN Ordering Facility: [facility] Address: [address] [place] [address] Performed By: #### 2 4323-8, LIPNF #### [facility] CLIA [id number] [address] [place] [address] [place] Creatinine [Mass/Vol] 0.74 mg/dL Normal 0.58-0.96 [facility] Comment on above: Order Comment: Speci men Type: BLOOD SPECIMEN Ordering Facility: [facility] Address: [address] [place] [address] Performed By: #### 2 4323-8, LIPNF #### [facility] CLIA [id number] [address] [place] [address] [place] Creatinine and Glomerular filtration rate.predicted panel (S/P/Bld) 86 mL/min/1.73m??? Normal >=60 [facility] Comment on above: Order Comment: Speci men Type: BLOOD SPECIMEN Ordering Facility: [facility] Address: [address] [place] [address] Result Comment: Tammi mated Glomerular Filtration Rate [...] Performed By: #### 2 4323-8, LIPNF #### [facility] CLIA [id number] [address] [place] [address] [place] Glucose [Mass/Vol] 76 mg/dL Normal 74-99 [facility] Comment on above: Order Comment: Carmela silva Type: BLOOD SPECIMEN Ordering Facility: [facility] Address: [address] [place] [address] Result Comment: The [place] Diabetes Association (ADA) provides guidance for cutoff [...] Standards of Medical Care in Diabetes 2016, [place] [employer]. Diabetes Care. 2016.39(Suppl 1). Performed By: #### 2 4323-8, LIPNF #### [facility] CLIA [id number] [address] [place] [address] [place] Potassium [Moles/Vol] 4.3 mmol/L Normal 3.7-5.1 [facility] Comment on above: Order Comment: Carmela silva Type: BLOOD SPECIMEN Ordering Facility: [facility] Address: [address] [place] [address] Performed By: #### 2 4323-8, LIPNF #### [facility] CLIA [id number] [address] [place] [address] [place] Protein [Mass/Vol] 8.0 g/dL Normal 6.3-8.0 [facility] Comment on above: Order Comment: Speci men Type: BLOOD SPECIMEN Ordering Facility: [facility] Address: [address] [place] [address] Performed By: #### 2 4323-8, LIPNF #### [facility] CLIA [id number] [address] [place] [address] [place] Sodium [Moles/Vol] 140 mmol/L Normal 136-144 [facility] Comment on above: Order Comment: Speci men Type: BLOOD SPECIMEN Ordering Facility: [facility] Address: [address] [place] [address] Performed By: #### 2 4323-8, LIPNF #### [facility] CLIA [id number] [address] [place] [address] [place] Urea nitrogen [Mass/Vol] 22 mg/dL High 7-21 [facility] Comment on above: Order Comment: Speci men Type: BLOOD SPECIMEN Ordering Facility: [facility] Address: [address] [place] [address] Performed By: #### 2 4323-8, LIPNF #### [facility] CLIA [id number] [address] [place] [address] [place] LIPID PANEL, NONFASTINGon Cholesterol [Mass/Vol] 235 mg/dL High <200 [facility] Comment on above: Order Comment: Speci men Type: BLOOD SPECIMEN Ordering Facility: [facility] Address: [address] [place] [address] Result Comment: <200 mg/dL, Desirable 200-239 mg/dL, Borderline high >239 mg/dL, High Performed By: #### 2 4323-8, LIPNF #### [facility] CLIA [id number] [address] [facility] [place] [address] [place] HDL CHOLESTEROL, NF 58 mg/dL Normal >39 [facility] Comment on above: Order Comment: Carmela silva Type: BLOOD SPECIMEN Ordering Facility: [facility] Address: [address] [place] [address] Result Comment: 40-5 9 mg/dL, Acceptable >59 mg/dL, High: Negative risk factor for coronary heart disease <40 mg/dL, Low: Positive risk factor for coronary heart disease Performed By: #### 2 4323-8, LIPNF #### [facility] CLIA [id number] [facility] [place] [address] [place] LDL CHOLESTEROL, NF 144 mg/dL High <100 [facility] Comment on above: Order Comment: Carmela silva Type: BLOOD SPECIMEN Ordering Facility: [facility] Address: [address] [place] [address] Result Comment: <100 mg/dL, Optimal 100-129 mg/dL, Near optimal/above optimal 130-159 mg/dL, Borderline high 160-189 mg/dL, High >189 mg/dL, Very high Secondary prevention optimal LDL Cholesterol levels are recommended to be < 70 mg/dL Performed By: #### 2 4323-8, LIPNF #### [facility] CLIA [id number] [address] [place] [address] [facility] [place] LDL/HDL RATIO, NF 2.48 mg/dL Normal <2.54 [facility] Comment on above: Order Comment: Carmela silva Type: BLOOD SPECIMEN Ordering Facility: [facility] Address: [address] [place] [address] Result Comment: Cassidy lucas: 1. National Cholesterol Education Program ATP III Guideline At-A-Glance Quick Desk Reference: National Heart, Lung, and Blood [place]oy. National Institutes of Health. 2001: NIH Publication No. 01-3305. 2. An International Atherosclerosis Society position paper: global recommendations for the management of dyslipidemia: executive summary, Atherosclerosis. 2014: 232(2):410-413. Performed By: #### 2 4323-8, LIPNF #### [facility] CLIA [id number] [address] [place] [address] [place] NON HDL CHOL, NF 177 mg/dL High <130 [facility] Comment on above: Order Comment: Speci men Type: BLOOD SPECIMEN Ordering Facility: [facility] Address: [address] [place] [address] Result Comment: <130 mg/dL, Optimal 130-159 mg/dL, Near optimal/above optimal 160-189 mg/dL, Borderline high 190-219 mg/dL, High >219 mg/dL, Very high Secondary prevention optimal non HDL Cholesterol levels are recommended to be <100 mg/dL Performed By: #### 2 4323-8, LIPNF #### [facility] CLIA [id number] [address] [place] [address] [place] T CHOL/HDL RATIO NF 4.05 mg/dL Normal <5.10 [facility] Comment on above: Order Comment: Speci men Type: BLOOD SPECIMEN Ordering Facility: [facility] Address: [address] [place] [address] Performed By: #### 2 4323-8, LIPNF #### [facility] CLIA [id number] [address] [place] [address] [place] TRIGLYCERIDES, NF 166 mg/dL High <150 [facility] Comment on above: Order Comment: Speci men Type: BLOOD SPECIMEN Ordering Facility: [facility] Address: [address] [place] [address] Result Comment: <150 mg/dL, Normal 150-199 mg/dL, Borderline high 200-499 mg/dL, High >499 mg/dL, Very high Performed By: #### 2 4323-8, LIPNF #### [facility] CLIA [id number] [address] [place] [address] [place] VLDL CHOLESTEROL, NF 33 mg/dL High <30 [facility] Comment on above: Order Comment: Speci men Type: BLOOD SPECIMEN Ordering Facility: [facility] Address: [address] [place] [address] Performed By: #### 2 4323-8, LIPNF #### [facility] CLIA [id number] [address] [place] [address] [place] Urinalysis complete panel (U )on 08-12-2024 Bacteria LM.HPF (Urine sed) [#/Area] Negative Normal Negative [facility] Comment on above: Order Comment: Speci men Type: BLOOD SPECIMEN Ordering Facility: [facility] Address: [address] [place] [address] Performed By: #### K LFRS #### [facility] CLIA [id number] [address] [place] [address] [place] Bilirubin Ql (U) Negative Normal Negative [facility] Comment on above: Order Comment: Speci men Type: BLOOD SPECIMEN Ordering Facility: [facility] Address: [address] [place] [address] Performed By: #### K LFRS #### [facility] CLIA [id number] [address] [place] [address] [place] Clarity (Unsp spec) Clear Normal Clear [facility] Comment on above: Order Comment: Speci men Type: BLOOD SPECIMEN Ordering Facility: [facility] Address: [address] [place] [address] Performed By: #### K LFRS #### [facility] CLIA [id number] [address] [place], [place] [id number] [place] Color (U) Dark Yellow Abnormal Yellow [facility] Comment on above: Order Comment: Speci men Type: BLOOD SPECIMEN Ordering Facility: [facility] Address: [address] [place], [place] [id number] Performed By: #### K LFRS #### [facility] CLIA [id number] [address] [place], [place] [id number] [place] Epithelial cells LM.HPF (Urine sed) [#/Area] None Seen Normal [facility] Comment on above: Order Comment: Speci men Type: BLOOD SPECIMEN Ordering Facility: [facility] Address: [address] [place] [address] Performed By: #### K LFRS #### [facility] CLIA [id number] [address] [place] [address] [place] Glucose Test strip (U) [Mass/Vol] Negative Normal Negative [facility] Comment on above: Order Comment: Speci men Type: BLOOD SPECIMEN Ordering Facility: [facility] Address: [address] [place] [address] Performed By: #### K LFRS #### [facility] CLIA [id number] [address] [place] [address] [place] Hemoglobin Ql (U) Negative Normal Negative [facility] Comment on above: Order Comment: Speci men Type: BLOOD SPECIMEN Ordering Facility: [facility] Address: [address] [place] [address] Performed By: #### K LFRS #### [facility] CLIA [id number] [address] [place] [address] [place] Hyaline casts (Urine sed) [#/Area] 1-3 /LPF Abnormal 0 /LPF [facility] Comment on above: Order Comment: Speci men Type: BLOOD SPECIMEN Ordering Facility: [facility] Address: [address] [place] [address] Performed By: #### K LFRS #### [facility] CLIA [id number] [address] [place] [address] [place] Ketones Ql (U) Negative Normal Negative [facility] Comment on above: Order Comment: Speci men Type: BLOOD SPECIMEN Ordering Facility: [facility] Address: [address] [place] [address] Performed By: #### K LFRS #### [facility] CLIA [id number] [address] [place] [address] [place] Leukocyte esterase Test strip Ql (U) Negative Normal Negative [facility] Comment on above: Order Comment: Speci men Type: BLOOD SPECIMEN Ordering Facility: [facility] Address: [address] [place] [address] Performed By: #### K LFRS #### [facility] CLIA [id number] [address] [place] [address] [place] Nitrite Ql (U) Negative Normal Negative [facility] Comment on above: Order Comment: Speci men Type: BLOOD SPECIMEN Ordering Facility: [facility] Address: [address] [place] [address] Performed By: #### K LFRS #### [facility] CLIA [id number] [address] [place] [address] [place] pH (U) 6.5 [pH] Normal <8.5 [facility] Comment on above: Order Comment: Speci men Type: BLOOD SPECIMEN Ordering Facility: [facility] Address: [address] [place] [address] Performed By: #### K LFRS #### [facility] CLIA [id number] [address] [place] [address] [place] Protein (U) [Mass/Vol] Trace Abnormal Negative [facility] Comment on above: Order Comment: Speci men Type: BLOOD SPECIMEN Ordering Facility: [facility] Address: [address] [place] [address] Performed By: #### K LFRS #### [facility] CLIA [id number] [address] [place] [address] [place] RBC LM.HPF (Urine sed) [#/Area] 0-2 /HPF Normal 0-2 /HPF [facility] Comment on above: Order Comment: Speci men Type: BLOOD SPECIMEN Ordering Facility: [facility] Address: [address] [place] [address] Performed By: #### K LFRS #### [facility] CLIA [id number] [address] [place] [address] [place] Specific gravity (U) [Rel density] 1.025 Normal 1.005-1.030 [facility] Comment on above: Order Comment: Speci men Type: BLOOD SPECIMEN Ordering Facility: [facility] Address: [address] [place] [address] Performed By: #### K LFRS #### [facility] CLIA [id number] [address] [place] [address] [place] Urobilinogen Ql (U) 0.2 EU/dL Normal 0.2-1.0 EU/dL [facility] Comment on above: Order Comment: Speci men Type: BLOOD SPECIMEN Ordering Facility: [facility] Address: [address] [place] [address] Performed By: #### K LFRS #### [facility] CLIA [id number] [address] [place] [address] [place] WBC LM.HPF (Urine sed) [#/Area] 0-5 /HPF Normal 0-5 /HPF [facility] Comment on above: Order Comment: Speci men Type: BLOOD SPECIMEN Ordering Facility: [facility] Address: [address] [place] [address] Performed By: #### K LFRS #### [facility] CLIA [id number] [address] [place] [address] [place] CNOVon 06-30-2024 CNOV Office Visit (PULMWS ) LUPIS BRITO ([id number]) 1950 F Date Time Provider Department 06/30/24 10:00 AM ALONA CRUZ PULMWS During your visit today, we recorded the following information about you: Pulse Respiration Weight 50/minute 16/minute 59 kg Alona Cruz MD 06/30/2024 12:43 PM Signed . Respiratory Tendoy Note Patient name: Lupis Brito PCP: Tacos [...] significant dysphonia unable to sing in her yazidi choir. She had previously been on Qvar [...] pain, dyspn (more content not included)... [facility] Nurse Visit (FAMPWS) LUPIS BRITO ([id number]) 1950 F Date Time Provider Department 04/06/24 9:00 AM [place] NURSE [facility] During your visit today, we recorded the [...] Encounter Status:Closed by SUSANNE WEST on 04/06/24 [facility] 02[facility]17[facility] ([id number]) 1950 F Date Time Provider Department 02/17/24 [facility] During your visit today, we recorded the [...] Status:Closed by JEANNIE POOL on 02/17/24 Normal [facility] Comprehensive metabolic 2000 panelon 02-13-2024 Albumin [Mass/Vol] 4.7 g/dL 3.9 - 4.9 g/dL [facility] ALP [Catalytic activity/Vol] 47 U/L 34 - 123 U/L [facility] ALT [Catalytic activity/Vol] 16 U/L 7 - 38 U/L [facility] Anion gap [Moles/Vol] 13 mmol/L 8 - 15 mmol/L [facility] AST [Catalytic activity/Vol] 26 U/L 13 - 35 U/L [facility] Bilirubin [Mass/Vol] 0.6 mg/dL 0.2 - 1 .3 mg/dL [facility] Calcium [Mass/Vol] 9.7 mg/dL 8.5 - 10. 2 mg/dL [facility] Chloride [Moles/Vol] 101 mmol/L 98 - 10 7 mmol/L [facility] CO2 [Moles/Vol] 24 mmol/L 22 - 30 mmol/L [facility] Creatinine [Mass/Vol] 0.70 mg/dL 0.58 - 0.96 mg/dL [facility] GFR/1.73 sq M.predicted among non-blacks MDRD (S/P/Bld) [Vol rate/Area] 92 mL/min/{1.73_m2} - PINF [facility] Comment on above: Estimated Glomerular Filtration [...] [Mass/Vol] 97 mg/dL 74 - 99 mg/dL [facility] Comment on above: The [place] Diabete s Association (ADA) provides guidance for [...] Standards of Medical Care in Diabetes 2016, [place] Diabetes Association. Diabetes Care. 2016.39(Suppl 1). Potassium [Moles/Vol] 4.0 mmol/L 3.7 - 5.1 mmol/L [facility] Protein [Mass/Vol] 7.8 g/dL 6.3 - 8.0 g/dL [facility] Sodium [Moles/Vol] 138 mmol/L 136 - 144 mmol/L [facility] Urea nitrogen [Mass/Vol] 20 mg/dL 7 - 21 mg/dL [facility] LIPID PANEL, NONFASTINGon Cholesterol [Mass/Vol] 264 mg/dL High NINF - 200 mg/dL [facility] Comment on above: <200 mg/dL, Desirabl e 200-239 mg/dL, Borderline high >239 mg/dL, High HDL Cholesterol, Nonfasting 83 mg/dL 39 - PINF mg/dL [facility] Comment on above: 40-59 mg/dL, Accepta ble >59 mg/dL, High: Negative risk factor for coronary heart disease <40 mg/dL, Low: Positive risk factor for coronary heart disease Interpretation and review of laboratory results Abnormal [facility] LDL Cholesterol, Nonfasting 152 mg/dL High NINF - 100 mg/dL [facility] Comment on above: <100 mg/dL, Optimal 100-129 mg/dL, Near optimal/above optimal 130-159 mg/dL, Borderline high 160-189 mg/dL, High >189 mg/dL, Very high Secondary prevention optimal LDL Cholesterol levels are recommended to be < 70 mg/dL LDL/HDL Ratio, Nonfasting 1.83 mg/dL NINF - 2.54 mg/dL [facility] Comment on above: Reference: 1. National Cholesterol Education Program ATP III Guideline At-A-Glance Quick Desk Reference: National Heart, Lung, and Blood Tendoy. National Institutes of Health. 2001: NIH Publication No. 01-3305. 2. An International Atherosclerosis Society position paper: global recommendations for the management of dyslipidemia: executive summary, Atherosclerosis. 2014: 232(2):410-413. Non HDL Cholesterol, Nonfasting 181 mg/dL High NINF - 130 mg/dL [facility] Comment on above: <130 mg/dL, Optimal 130-159 mg/dL, Near optimal/above optimal 160-189 mg/dL, Borderline high 190-219 mg/dL, High >219 mg/dL, Very high Secondary prevention optimal non HDL Cholesterol levels are recommended to be <100 mg/dL Total Chol/HDL Ratio, Nonfasting 3.18 mg/dL NINF - 5.10 mg/dL [facility] Triglycerides, Nonfasting 143 mg/dL NINF - 150 mg/dL [facility] Comment on above: <150 mg/dL, Normal 150-199 mg/dL, Borderline high 200-499 mg/dL, High >499 mg/dL, Very high VLDL Cholesterol, Nonfasting 29 mg/dL NINF - 30 mg/dL [facility] No Panel Informationon 02-12 Interpretation and review of laboratory results Normal [facility] T3, FREEon 02-13-2024 Free T3 [Mass/Vol] 2.9 pg/mL 2.3 - 4.1 pg/mL [facility] T4 FREE/FREE THYROXINEon Free T4 [Mass/Vol] 1.2 ng/dL 0.9 - 1.7 ng/dL [facility] THYROID STIMULATING HORMONEo n 02-13-2024 TSH Qn 1.440 m[IU]/L [facility] TSH Qnon 02-13-2024 Interpretation and review of laboratory results Normal [facility] CNOVon 02-12-2024 CNOV Office Visit (LEVCAIO ) LUPIS BRITO ([id number]) 1950 F Date Time Provider Department 02/12/24 2:00 [facility] During your visit today, we recorded the following information about you: Pulse Respiration Blood pressure Weight 60/minute 14/minute 112/80 59.4 kg Tacos Hein MD 02/21/2024 1:33 PM Addendum Chief Complaint Patient presents with: Hospital Follow Up HPI Lupis Brito is a 74 year old female who presents here today for Hospital Discharge Follow up.. Patient was admitted to [facility] on on for chest tightness, nausea and Palpitations. There was concern for accelerated Idioventricular junctional rhythm. Overnight monitor showed sinus rhythm and regular. Echocardiogram showed normal ejection fraction. The tachycardia rhythm was considered a side effect of the doxycycline. 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 Since discharge she [...] Size: Regular (more content not included)... Normal [facility] Comprehensive metabolic 2000 panelon 02-12-2024 Albumin [Mass/Vol] 4.7 g/dL Normal 3.9-4.9 [facility] Comment on above: Order Comment: Speci men Type: BLOOD SPECIMEN Ordering Facility: [facility] Address: [address] [place] [address] Performed By: #### 3 051-0, 19472-9, LIPARGELIA, 3024-7 #### [facility] CLIA [id number] [address] [place] [id number] [place] [address] [place] ALP [Catalytic activity/Vol] 47 U/L Normal 34-123 [facility] Comment on above: Order Comment: Speci men Type: BLOOD SPECIMEN Ordering Facility: [facility] Address: [address] [place] [address] Performed By: #### 3 051-0, 85650-3, LIPNF, 7 #### [facility] CLIA [id number] [address] [place] [address] [place] ALT [Catalytic activity/Vol] 16 U/L Normal 7-38 [facility] Comment on above: Order Comment: Speci men Type: BLOOD SPECIMEN Ordering Facility: [facility] Address: [address] [place] [address] Performed By: #### 3 051-0, 78475-4, LIPNF, 7 #### [facility] CLIA [id number] [address] [place] [address] [place] Anion gap [Moles/Vol] 13 mmol/L Normal 8-15 [facility] Comment on above: Order Comment: Speci men Type: BLOOD SPECIMEN Ordering Facility: [facility] Address: [address] [place] [address] Performed By: #### 3 051-0, 81519-5, LIPNF, 7 #### [facility] CLIA [id number] [address] [place] [address] [place] AST [Catalytic activity/Vol] 26 U/L Normal 13-35 [facility] Comment on above: Order Comment: Speci men Type: BLOOD SPECIMEN Ordering Facility: [facility] Address: [address] [place] [address] Performed By: #### 3 051-0, 66486-2, LIPNF, 3023-7 #### [facility] CLIA [id number] [address] [place] [address] [place] Bilirubin [Mass/Vol] 0.6 mg/dL Normal 0.2-1.3 [facility] Comment on above: Order Comment: Speci men Type: BLOOD SPECIMEN Ordering Facility: [facility] Address: [address] [place] [address] Performed By: #### 3 051-0, 44714-3, LIPNF, 3023-7 #### [facility] CLIA [id number] [address] [place] [address] [place] Calcium [Mass/Vol] 9.7 mg/dL Normal 8.5-10.2 [facility] Comment on above: Order Comment: Speci men Type: BLOOD SPECIMEN Ordering Facility: [facility] Address: [address] [place] [address] Performed By: #### 3 051-0, 36181-0, LIPNF, 3023-7 #### [facility] CLIA [id number] [address] [place] [address] [place] Chloride [Moles/Vol] 101 mmol/L Normal 98-107 [facility] Comment on above: Order Comment: Speci men Type: BLOOD SPECIMEN Ordering Facility: [facility] Address: [address] [place] [address] Performed By: #### 3 051-0, 69407-4, LIPNF, 3023-7 #### [facility] CLIA [id number] [address] [place] [address] [place] CO2 [Moles/Vol] 24 mmol/L Normal 22-30 [facility] Comment on above: Order Comment: Speci men Type: BLOOD SPECIMEN Ordering Facility: [facility] Address: [address] [place] [address] Performed By: #### 3 051-0, 80086-0, LIPNF, 3023-7 #### [facility] CLIA [id number] [address] [place] [address] [place] Creatinine [Mass/Vol] 0.70 mg/dL Normal 0.58-0.96 [facility] Comment on above: Order Comment: Speci men Type: BLOOD SPECIMEN Ordering Facility: [facility] Address: [address] [place] [address] Performed By: #### 3 051-0, 37333-0, LIPNF, 3024-7 #### [facility] CLIA [id number] [address] [place] [address] [place] Creatinine and Glomerular filtration rate.predicted panel (S/P/Bld) 92 mL/min/1.73m??? Normal >=60 [facility] Comment on above: Order Comment: Carmela silva Type: BLOOD SPECIMEN Ordering Facility: [facility] Address: [address] [place] [address] Result Comment: Tammi mated Glomerular Filtration Rate [...] actual GFR. Performed By: #### 3 051-0, 28835-0, LIPNF, 3024-7 #### [facility] CLIA [id number] [address] [place] [address] [place] Glucose [Mass/Vol] 97 mg/dL Normal 74-99 [facility] Comment on above: Order Comment: Carmela silva Type: BLOOD SPECIMEN Ordering Facility: [facility] Address: [address] [place] [address] Result Comment: The [place] Diabetes Association (ADA) provides guidance for cutoff [...] Standards of Medical Care in Diabetes 2016, [place] Diabetes Association. Diabetes Care. 2016.39(Suppl 1). Performed By: #### 3 051-0, 16911-6, LIPNF, 3024-7 #### [facility] CLIA [id number] [address] [place] [address] [place] Potassium [Moles/Vol] 4.0 mmol/L Normal 3.7-5.1 [facility] Comment on above: Order Comment: Speci men Type: BLOOD SPECIMEN Ordering Facility: [facility] Address: [address] [place] [address] Performed By: #### 3 051-0, 18722-5, LIPNF, 302-7 #### [facility] CLIA [id number] [address] [place] [address] [place] Protein [Mass/Vol] 7.8 g/dL Normal 6.3-8.0 [facility] Comment on above: Order Comment: Speci men Type: BLOOD SPECIMEN Ordering Facility: [facility] Address: [address] [place] [address] Performed By: #### 3 051-0, 23679-6, LIPNF, 302-7 #### [facility] CLIA [id number] [address] [place] [address] [place] Sodium [Moles/Vol] 138 mmol/L Normal 136-144 [facility] Comment on above: Order Comment: Speci men Type: BLOOD SPECIMEN Ordering Facility: [facility] Address: [address] [place] [address] Performed By: #### 3 051-0, 99210-8, LIPNF, 3024-7 #### [facility] CLIA [id number] [address] [place] [address] [place] Urea nitrogen [Mass/Vol] 20 mg/dL Normal 7-21 [facility] Comment on above: Order Comment: Speci men Type: BLOOD SPECIMEN Ordering Facility: [facility] Address: [address] [place] [address] Performed By: #### 3 051-0, 77516-9, LIPNF, 3023-7 #### [facility] CLIA [id number] [address] [place] [address] [place] LIPID PANEL, NONFASTINGon Cholesterol [Mass/Vol] 264 mg/dL High <200 [facility] Comment on above: Order Comment: Carmela men Type: BLOOD SPECIMEN Ordering Facility: [facility] Address: [address] [place] [address] Result Comment: <200 mg/dL, Desirable 200-239 mg/dL, Borderline high >239 mg/dL, High Performed By: #### 3 051-0, 41535-0, LIPNF, 3023-7 #### [facility] CLIA [id number] [address] [place] [address] [place] HDL CHOLESTEROL, NF 83 mg/dL Normal >39 [facility] Comment on above: Order Comment: Carmela silva Type: BLOOD SPECIMEN Ordering Facility: [facility] Address: [address] [place] [address] Result Comment: 40-5 9 mg/dL, Acceptable >59 mg/dL, High: Negative risk factor for coronary heart disease <40 mg/dL, Low: Positive risk factor for coronary heart disease Performed By: #### 3 051-0, 77810-8, LIPNF, 3023-7 #### [facility] CLIA [id number] [address] [place] [address] [place] LDL CHOLESTEROL, NF 152 mg/dL High <100 [facility] Comment on above: Order Comment: Carmela men Type: BLOOD SPECIMEN Ordering Facility: [facility] Address: [address] [place] [address] Result Comment: <100 mg/dL, Optimal 100-129 mg/dL, Near optimal/above optimal 130-159 mg/dL, Borderline high 160-189 mg/dL, High >189 mg/dL, Very high Secondary prevention optimal LDL Cholesterol levels are recommended to be < 70 mg/dL Performed By: #### 3 051-0, 33120-9, LIPNF, 302-7 #### [facility] CLIA [id number] [address] [place] [address] [place] LDL/HDL RATIO, NF 1.83 mg/dL Normal <2.54 [facility] Comment on above: Order Comment: Carmela silva Type: BLOOD SPECIMEN Ordering Facility: [facility] Address: [address] [place] [address] Result Comment: Refe rence: 1. National Cholesterol Education Program ATP III Guideline At-A-Glance Quick Desk Reference: National Heart, Lung, and Blood Tendoy. National Institutes of Health. 2001: NIH Publication No. 01-3305. 2. An International Atherosclerosis Society position paper: global recommendations for the management of dyslipidemia: executive summary, Atherosclerosis. 2014: 232(2):410-413. Performed By: #### 3 051-0, 83617-5, LIPARGELIA, 3023-7 #### [facility] CLIA [id number] [address] [place] [address] [place] NON HDL CHOL, NF 181 mg/dL High <130 [facility] Comment on above: Order Comment: Carmela silva Type: BLOOD SPECIMEN Ordering Facility: [facility] Address: [address] [place] [address] Result Comment: <130 mg/dL, Optimal 130-159 mg/dL, Near optimal/above optimal 160-189 mg/dL, Borderline high 190-219 mg/dL, High >219 mg/dL, Very high Secondary prevention optimal non HDL Cholesterol levels are recommended to be <100 mg/dL Performed By: #### 3 051-0, 76584-0, LIPNF, 302-7 #### [facility] CLIA [id number] [address] [place] [address] [place] T CHOL/HDL RATIO NF 3.18 mg/dL Normal <5.10 [facility] Comment on above: Order Comment: Speci men Type: BLOOD SPECIMEN Ordering Facility: [facility] Address: [address] [place] [address] Performed By: #### 3 051-0, 41934-9, LIPNF, 3023-7 #### [facility] CLIA [id number] [address] [place] [address] [place] TRIGLYCERIDES, NF 143 mg/dL Normal <150 [facility] Comment on above: Order Comment: Speci men Type: BLOOD SPECIMEN Ordering Facility: [facility] Address: [address] [place] [address] Result Comment: <150 mg/dL, Normal 150-199 mg/dL, Borderline high 200-499 mg/dL, High >499 mg/dL, Very high Performed By: #### 3 051-0, 61863-3, LIPNF, 3023-7 #### [facility] CLIA [id number] [address] [place] [address] [place] VLDL CHOLESTEROL, NF 29 mg/dL Normal <30 [facility] Comment on above: Order Comment: Speci men Type: BLOOD SPECIMEN Ordering Facility: [facility] Address: [address] [place] [address] Performed By: #### 3 051-0, 98501-7, LIPNF, 3023-7 #### [facility] CLIA [id number] [address] [place] [address] [place] T3Free SerPl-mCncon 02-12-20 24 Free T3 [Mass/Vol] 2.9 pg/mL Normal 2.3-4.1 [facility] Comment on above: Order Comment: Speci men Type: BLOOD SPECIMENOrdering Facility: [facility] Address: [address] [place] [address] Performed By: #### 3 051-0, 74475-6, LIPNF, 3023-7 ####[facility] [id number] [address] [id number] [address] [place] T4 Free SerPl-mCncon 024 Free T4 [Mass/Vol] 1.2 ng/dL Normal 0.9-1.7 [facility] Comment on above: Order Comment: Speci men Type: BLOOD SPECIMENOrdering Facility: [facility] Address: [address] [place] [address] Performed By: #### 3 051-0, 49320-4, LIPNF, 3024-7 ####[facility] [id number] [place] [address] [place] TSH SerPl-aCncon 02-12-2024 TSH Qn 1.440 m[IU]/L Normal 0.270-4.200 [facility] Comment on above: Order Comment: Speci men Type: BLOOD SPECIMEN Ordering Facility: [facility] Address: [address] [place] [address] Performed By: #### 3 016-3 #### [facility] CLIA [id number] [address] [place], [place] [address] [id number] [place] CBC W/Diff, Automatedon 07-0 Absolute Lymph 2.14 X10 3/uL Normal 0.83-4.51 [facility] Comment on above: Performed By: #### L 501.5200, L501.2300 #### [facility] [address] [place], [address] Absolute Neut 3.4 X10 3/uL Normal 2.0-7.7 [facility] Comment on above: Performed By: #### L 501.5200, L501.2300 #### [facility] [address] [place], [address] Basophils/100 WBC (Bld) 0.9 % Normal 0-1 [facility] Comment on above: Performed By: #### L 501.5200, L501.2300 #### [facility] [address] [place], [address] Eosinophils/100 WBC (Bld) 3.5 % Normal 0-5 [facility] Comment on above: Performed By: #### L 501.5200, L501.2300 #### [facility] [address] [place], [address] Erythrocyte distribution width (RBC) [Ratio] 13.4 % Normal 11.6-14.6 [facility] Comment on above: Performed By: #### L 501.5200, L501.2300 #### [facility] [address] [place], [address] Hematocrit (Bld) [Volume fraction] 35.4 % Low 37-47 [facility] Comment on above: Performed By: #### L 501.5200, L501.2300 #### [facility] [address] [place], [address] Hemoglobin (Bld) [Mass/Vol] 11.3 g/dL Low 12.0-15.0 [facility] Comment on above: Performed By: #### L 501.5200, L501.2300 #### [facility] [address] [place], [address] IG% 0.300 Normal 0.0-0.9 [facility] Comment on above: Result Comment: IG% - Immature Granulocytes (promyelocytes, myelocytes and metamyelocytes) > 1% indicates that a LEFT SHIFT is Present. Performed By: #### L 501.5200, L501.2300 #### [facility] [address] [place], [address] Lymphocytes/100 WBC (Bld) 33.7 % Normal 19-41 [facility] Comment on above: Performed By: #### L 501.5200, L501.2300 #### [facility] [address] [place], [address] MCH (RBC) [Entitic mass] 29.4 pg Normal 27.0-32.0 [facility] Comment on above: Performed By: #### L 501.5200, L501.2300 #### [facility] [address] [place], [address] MCHC (RBC) [Mass/Vol] 31.9 g/dL Low 32-36 [facility] Comment on above: Performed By: #### L 501.5200, L501.2300 #### [facility] [address] [place], [address] MCV (RBC) [Entitic vol] 91.9 fL Normal 81-99 [facility] Comment on above: Performed By: #### L 501.5200, L501.2300 #### [facility] [address] [place], [address] Monocytes/100 WBC (Bld) 8.7 % Normal 0-10 [facility] Comment on above: Performed By: #### L 501.5200, L501.2300 #### [facility] [address] [place], [address] Neutrophils/100 WBC (Bld) 52.9 % Normal 47-70 [facility] Comment on above: Performed By: #### L 501.5200, L501.2300 #### [facility] [address] [place], [address] Nucleated RBC (Bld) [#/Vol] 0 10*3/uL Normal 0-5 [facility] Comment on above: Performed By: #### L 501.5200, L501.2300 #### [facility] [address] [place], [address] Platelet mean volume (Bld) [Entitic vol] 9.7 fL Normal 6.2-12.0 [facility] Comment on above: Performed By: #### L 501.5200, L501.2300 #### [facility] [address] [place], [address] Platelets (Bld) [#/Vol] 252 10*3/uL Normal 150-450 [facility] Comment on above: Performed By: #### L 501.5200, L501.2300 #### [facility] [address] [place], [address] RBC (Bld) [#/Vol] 3.85 10*6/uL Low 4.2-5.4 [facility] Comment on above: Performed By: #### L 501.5200, L501.2300 #### [facility] [address] [place], [address] RDW SD 45.3 fl High 35.1-43.9 [facility] Comment on above: Performed By: #### L 501.5200, L501.2300 #### [facility] [address] [place], [address] WBC (Bld) [#/Vol] 6.4 10*3/uL Normal 4.4-11.0 [facility] Comment on above: Performed By: #### L 501.5200, L501.2300 #### [facility] [address] [place], [address] Comprehensive Metabolic Prof [facility] 01-29-2024 Albumin [Mass/Vol] 3.3 g/dL Normal 3.2-5.0 [facility] Comment on above: Performed By: #### L 501.5200, L501.2300 #### [facility] [address] [place], [address] Albumin/Globulin [Mass ratio] 0.9 {ratio} Normal 0.9-2.4 [facility] Comment on above: Performed By: #### L 501.5200, L501.2300 #### [facility] [address] [place], [address] ALK P 36 U/L Low 45-117 [facility] Comment on above: Performed By: #### L 501.5200, L501.2300 #### [facility] [address] [place], [address] ALT [Catalytic activity/Vol] 16 U/L Normal 13-56 [facility] Comment on above: Performed By: #### L 501.5200, L501.2300 #### [facility] [address] [place], [address] AST [Catalytic activity/Vol] 26 U/L Normal 15-37 [facility] Comment on above: Performed By: #### L 501.5200, L501.2300 #### [facility] [address] [place], [address] Bilirubin [Mass/Vol] 0.50 mg/dL Normal 0.20-1.00 [facility] Comment on above: Result Comment: For patients on eltrombopag therapy, use of Dimension E[facility]ence TBIL is not recommended. Performed By: #### L 501.5200, L501.2300 #### [facility] [address] [place], [address] BUN/CRE 32.1 RATIO High 10-20 [facility] Comment on above: Performed By: #### L 501.5200, L501.2300 #### [facility] [address] [place], [address] CA,Total 8.6 mg/dL Normal 8.5-10.1 [facility] Comment on above: Performed By: #### L 501.5200, L501.2300 #### [facility] [address] [place], [address] Chloride [Moles/Vol] 108 mmol/L High 98-107 [facility] Comment on above: Performed By: #### L 501.5200, L501.2300 #### [facility] [address] [place], [address] CO2 [Moles/Vol] 26.0 mmol/L Normal 21.0-32.0 [facility] Comment on above: Performed By: #### L 501.5200, L501.2300 #### [facility] [address] [place], [address] Creatinine [Mass/Vol] 0.66 mg/dL Normal 0.55-1.02 [facility] Comment on above: Result Comment: The validity of the calculated GFR GFRAA in patients over 70 years has not been determined. Clinical correlation is essential. Performed By: #### L 501.5200, L501.2300 #### [facility] [address] [place], [address] ECRCL 55.70 ml/min Normal [facility] Comment on above: Performed By: #### L 501.5200, L501.2300 #### [facility] [address] [place], [address] EST GFR - AA 114 mL/min Normal >60 [facility] Comment on above: Result Comment: Afri can [place] GFR Calc Performed By: #### L 501.5200, L501.2300 #### [facility] [address] [place], [address] GAP 6 Normal 5-15 [facility] Comment on above: Performed By: #### L 501.5200, L501.2300 #### [facility] [address] [place], [address] GFR/1.73 sq M.predicted among non-blacks MDRD (S/P/Bld) [Vol rate/Area] 94 mL/min/{1.73_m2} Normal >60 [facility] Comment on above: Result Comment: Non- GFR Calc Performed By: #### L 501.5200, L501.2300 #### [facility] [address] [place], [address] Globulin (S) [Mass/Vol] 3.6 g/dL Normal 2.2-4.2 [facility] Comment on above: Performed By: #### L 501.5200, L501.2300 #### [facility] [address] [place], [address] Glucose [Mass/Vol] 86 mg/dL Normal 74-106 [facility] Comment on above: Performed By: #### L 501.5200, L501.2300 #### [facility] [address] [place], [address] Potassium [Moles/Vol] 4.0 mmol/L Normal 3.5-5.1 [facility] Comment on above: Performed By: #### L 501.5200, L501.2300 #### [facility] [address] [place], [address] Sodium [Moles/Vol] 140 mmol/L Normal 136-145 [facility] Comment on above: Performed By: #### L 501.5200, L501.2300 #### [facility] [address] [place], [address] T PROT 6.9 g/dL Normal 6.4-8.2 [facility] Comment on above: Performed By: #### L 501.5200, L501.2300 #### [facility] [address] [place], [address] Urea nitrogen [Mass/Vol] 21 mg/dL High 7-18 [facility] Comment on above: Performed By: #### L 501.5200, L501.2300 #### [facility] [address] [place], [address] Echo Completeon 01-29-2024 Echo Complete [facility] [address] [place] [address] Echo Complete 01/29/24 0844 MR#: [id number] Acct: [id number] Name: LUPIS BRITO Rep #: [id number] : 1950 73 From: Rasta Alejandro MD Attending Dr: Dr. Inez Moya MD Status: AD M TIAGO Ordering Dr: Odin Ware DO Date: 01/29/24 Location: [facility] Sex: F C Admitted: 01/29/24 Reason For [...] HEIN Performed By: Cherelle Saldana and Student 07/12/17 1513 Date Rasta Alejandro MD CC: Dr. Inez Moya MD; Dr. Odin Ware DO; Dr. Tacos Hein MD Date Dictated: 01/29/2444 Date Transcribed: 01/29/241513 Certified Legal Secretary Specialist: Signed Normal [facility] H AND P Exam - Hospitaliston 01-29-2024 H&P Exam - Hospitalist [facility] Medical Records Department [address] [place] [address] H P Exam - Hospitalist 01/29/24 0216 MR#: [id number] Acct: [id number] Name: LUPIS BRITO Rep #: [id number] : 1950 73 From: Odin Ware DO PCP: Dr. Tacos Hein MD Status:ADM TIAGO Location: [place] [address] HPI - General General Date of Admission: [...] Doxycycline two days ago who presents to [facility] ER complaining of palpitations. Ms. Brito reports [...] expected to be less than 2 midnights. [facility] Medical History Asthma Arthritis Home Medications ???Medication ???Instructions ???Recorded ???Last Taken ???Type albuterol sulfate 90 mcg/actuation 2 puff inhalation Q4H PRN 01/28/24 Unknown History aerosol inhaler shortness of breath or wheezing beclomethasone dipropionate 80 2 inh inhalation BID 01/28/24 Unknown History mcg/actuation HFA breath activated aerosol (Qvar RediHaler) denosumab 60 mg/mL subcutaneous 60 mg subcut .[id number] 01/28/24 Unknown History syringe (Prolia) doxycycline hyclate [...] 23:17 01/29/24 (more content not included)... Normal [facility] L501.4020on 01-29-2024 TROPONIN-I HS 86 pg/mL High 3.0-54.0 [facility] Comment on above: Order Comment: 'TROP ' Serial specimen #1, #2 or #3: 1 Result Comment: Plea se Note: New Test Units and Gender Specific Reference Ranges. For more information see Policy Stat Procedure Eminence High Sensitivity Troponin (TNIH) and attachments. Performed By: #### L 501.4020 #### [facility] [address] [place], [place], [address] TROPONIN-I HS 94 pg/mL High 3.0-54.0 [facility] Comment on above: Result Comment: Plea se Note: New Test Units and Gender Specific Reference Ranges. For more information see Policy Stat Procedure E[facility] High Sensitivity Troponin (TNIH) and attachments. Performed By: #### L 501.4020 #### [facility] [address] [place], [place], [address] Lipid Profileon 01-29-2024 Cholesterol [Mass/Vol] 260 mg/dL High 200 [facility] Comment on above: Result Comment: <200 mg/dL Desirable 200-240 mg/dL Borderline >240 mg/dL High Risk Performed By: #### L 500.4100, L506.0400 #### [facility] [address] [place], [address] Cholesterol in HDL [Mass/Vol] 75 mg/dL Normal [facility] Comment on above: Result Comment: The drugs N-Acetylcysteine and Metamizole may falsely depress this assay. Reference Range HDL <40 mg/dL Low HDL Cholesterol HDL >or= 60 mg/dL High HDL Cholesterol Performed By: #### L 500.4100, L506.0400 #### [facility] [address] [place], [address] Cholesterol in LDL [Mass/Vol] 146 mg/dL High 0-130 [facility] Comment on above: Performed By: #### L 500.4100, L506.0400 #### [facility] [address] [place], [address] Cholesterol in VLDL [Mass/Vol] 39 mg/dL Normal 5-40 [facility] Comment on above: Performed By: #### L 500.4100, L506.0400 #### [facility] [address] [place], [address] Triglyceride [Mass/Vol] 197 mg/dL Normal [facility] Comment on above: Result Comment: The drugs N-Acetylcysteine and Metamizole may falsely depress this assay. Serum Triglycerides Reference Interval Normal <150 mg/dL Borderline high 150 - 199 mg/dL High 200 - 499 mg/dL Very High > or = 500 mg/dL Performed By: #### L 500.4100, L506.0400 #### [facility] [address] [place], [address] Magnesiumon 01-29-2024 Magnesium [Mass/Vol] 2.2 mg/dL Normal 1.6-2.6 [facility] Comment on above: Performed By: #### L 501.5200, L501.2300 #### [facility] [address] [place], [address] Phosphoruson 01-29-2024 Phosphate [Mass/Vol] 4.1 mg/dL Normal 2.5-4.9 [facility] Comment on above: Performed By: #### L 501.5200, L501.2300 #### [facility] [address] [place], [address] T4 Free Directon 01-29-2024 T4 FREE DIRECT 0.95 ng/dL Normal 0.76-1.46 [facility] Comment on above: Performed By: #### L 500.4100, L506.0400 #### [facility] [address] [place], [address] Absolute lymphocyte countOrd ered By: Cody Gonzalez on 08-03-2023 Lymphocytes Auto (Unsp spec) [#/Vol] 1.74 10*3/uL 0.83-4.51 [facility] Basophil percentageOrdered B y: Cody Gonzalez on 08-03-2023 Basophils/100 WBC (Bld) 0.9 % 0-1 [facility] Bilirubin [Mass/Vol] 0.60 mg/dL 0.20-1.00 [facility] Comment on above: For patients on eltr ombopag therapy, use of Dimension Eminence TBIL is not recommended. Chloride [Moles/Vol] 105 mmol/L 98-107 [facility] Eosinophils/100 WBC (Bld) 2.9 % 0-5 [facility] Glucose [Mass/Vol] 127 mg/dL 74-106 [facility] Comment on above: Fasting Glucose resu lt greater than or equal to 126 mg/dL suggests DIABETES MELLITUS per A.D.A. criteria. Neutrophils (Bld) [#/Vol] 4.4 10*3/uL 2.0-7.7 [facility] Neutrophils/100 WBC (Bld) 62.7 % 47-70 [facility] Potassium [Moles/Vol] 3.9 mmol/L 3.5-5.1 [facility] Protein [Mass/Vol] 7.4 g/dL 6.4-8.2 [facility] Sodium [Moles/Vol] 139 mmol/L 136-145 [facility] WBC (Bld) [#/Vol] 7.0 10*3/uL 4.4-11.0 [facility] Blood erythrocytes count (nu mber/volume)Ordered By: Cody Gonzalez on 08-03-2023 RBC (Bld) [#/Vol] 4.06 10*6/uL 4.2-5.4 [facility] Blood hemoglobin measurement (mass/volume)Ordered By: Cody Gonzalez on 08-03-2023 Hemoglobin (Bld) [Mass/Vol] 12.2 g/dL 12.0-15.0 [facility] Blood lymphocytes/100 leukoc ytesOrdered By: Cody Gonzalez on 08-03-2023 Lymphocytes/100 WBC (Bld) 25.0 % 19-41 [facility] Blood monocytes/100 leukocyt esOrdered By: Cody Gonzalez on 08-03-2023 Monocytes/100 WBC (Bld) 8.2 % 0-10 [facility] Blood platelet mean volumeOr dered By: Cody Gonzalez on 08-03-2023 Platelet mean volume (Bld) [Entitic vol] 9.3 fL 6.2-12.0 [facility] Determination of erythrocyte mean corpuscular volume (MCV)Ordered By: Cody Gonzalez on 08-03-2023 MCV (RBC) [Entitic vol] 91.4 fL 81-99 [facility] Hematocrit Auto (Bld) [Volum e fraction]Ordered By: Cody Gonzalez on 08-03-2023 Hematocrit (Bld) [Volume fraction] 37.1 % 37-47 [facility] - Chemistry and C hemistry - challengeOrdered By: Cody Gonzalez on 08-03-2023 ALP [Catalytic activity/Vol] 54 U/L 45-117 [facility] ALT [Catalytic activity/Vol] 19 U/L 13-56 [facility] CO2 [Moles/Vol] 30.0 mmol/L 21.0-32.0 [facility] Globulin (S) [Mass/Vol] 3.8 g/dL 2.2-4.2 [facility] Urea nitrogen/Creatinine [Mass ratio] 22.7 mg/mg 10-20 [facility] - Hematology and Cell countsOrdered By: Cody Gonzalez on 08-03-2023 Erythrocyte distribution width (RBC) [Entitic vol] 45.0 fL 35.1-43.9 [facility] Erythrocyte distribution width (RBC) [Ratio] 13.4 % 11.6-14.6 [facility] Immature granulocytes/100 WBC (Bld) 0.300 % 0.0-0.9 [facility] Comment on above: IG% - Immature Granu locytes (promyelocytes, myelocytes and metamyelocytes) > 1% indicates that a LEFT SHIFT is Present. MCH (RBC) [Entitic mass] 30.0 pg 27.0-32.0 [facility] Nucleated RBC/100 WBC (Bld) [Ratio] 0 % 0-5 [facility] MCHC Auto (RBC) [Mass/Vol]Or dered By: Cody Gonzalez on 08-03-2023 MCHC (RBC) [Mass/Vol] 32.9 g/dL 32-36 [facility] No Panel InformationOrdered By: Cody Gonzalez on 08-03-2023 Estimated Creatinine Clearance Calc 49.93 ml/min [facility] Estimated GFR (MDRD) Amer 77 mL/min >60 [facility] Comment on above: GFR Calc Estimated GFR (MDRD) Non-Af Amer 63 mL/min >60 [facility] Comment on above: Non- GFR Calc Troponin I High Sensitivity 4 pg/mL 3.0-54.0 [facility] Comment on above: Please Note: New Мария t Units and Gender Specific Reference Ranges. For more information see Policy Stat Procedure [facility] High Sensitivity Troponin (TNIH) and attachments. Platelets bldOrdered By: Marisa Gonzalez on 08-03-2023 Platelets (Bld) [#/Vol] 286 10*3/uL 150-450 [facility] Serum or plasma albumin radha urement (mass/volume)Ordered By: Cody Gonzalez on 08-03-2023 Albumin [Mass/Vol] 3.6 g/dL 3.2-5.0 [facility] Serum or plasma albumin/glob ulin mass ratioOrdered By: Cody Gonzalez on 08-03-2023 Albumin/Globulin [Mass ratio] 0.9 {ratio} 0.9-2.4 [facility] Serum or plasma calcium radha urement (mass/volume)Ordered By: Cody Gonzalez on 08-03-2023 Calcium [Mass/Vol] 9.7 mg/dL 8.5-10.1 [facility] Serum or plasma creatinine m easurement (mass/volume)Ordered By: Cody Gonzalez on 08-03-2023 Creatinine [Mass/Vol] 0.93 mg/dL 0.55-1.02 [facility] Comment on above: The validity of the calculated GFR & GFRAA in patients over 70 years has not been determined. Clinical correlation is essential. Serum or plasma urea nitroge n measurement (mass/volume)Ordered By: Cody Gonzalez on 08-03-2023 Urea nitrogen [Mass/Vol] 21 mg/dL 7-18 [facility] Thin prep Papanicolaou smear with manual screeningOrdered By: Cody Gonzalez on 08-03-2023 Thin prep Papanicolaou smear with manual screening 19 U/L 15-37 [facility] Thin prep Papanicolaou smear with manual screening 4 5-15 [facility] CT SINUS WO IVCONon 02-18-20 [facility] CBC W Auto Differential pane l (Bld)on 08-15-2022 Basophils (Bld) [#/Vol] 0.07 10*3/uL <0.11 k/uL [facility] Basophils/100 WBC (Bld) 0.4 % [facility] Differential cell count method Nom (Bld) Auto [facility] Eosinophils (Bld) [#/Vol] 0.09 10*3/uL <0.46 k/uL [facility] Eosinophils/100 WBC (Bld) 0.6 % [facility] Erythrocyte distribution width (RBC) [Ratio] 13.0 % 11.5 - 15.0 % [facility] Hematocrit (Bld) [Volume fraction] 42.8 % 36.0 - 46.0 % [facility] Hemoglobin (Bld) [Mass/Vol] 13.6 g/dL 11.5 - 15.5 g/dL [facility] Immature granulocytes (Bld) [#/Vol] 0.07 10*3/uL <0.10 k/uL [facility] Immature granulocytes/100 WBC (Bld) 0.4 % [facility] Lymphocytes (Bld) [#/Vol] 1.18 10*3/uL 1.00 - 4.00 k/uL [facility] Lymphocytes/100 WBC (Bld) 7.4 % [facility] MCH (RBC) [Entitic mass] 29.3 pg 26.0 - 34.0 pg [facility] MCHC (RBC) [Mass/Vol] 31.8 g/dL 30.5 - 36.0 g/dL [facility] MCV (RBC) [Entitic vol] 92.2 fL 80.0 - 100.0 fL [facility] Monocytes (Bld) [#/Vol] 0.81 10*3/uL <0.87 k/uL [facility] Monocytes/100 WBC (Bld) 5.1 % [facility] Neutrophils (Bld) [#/Vol] 13.75 10*3/uL High 1.45 - 7.50 k/uL [facility] Neutrophils/100 WBC (Bld) 86.1 % [facility] Nucleated RBC (Bld) [#/Vol] <0.01 k/uL [facility] Nucleated RBC/100 WBC (Bld) [Ratio] 0.0 /100 WBC [facility] Platelet mean volume (Bld) [Entitic vol] 9.5 fL 9.0 - 12.7 fL [facility] Platelets (Bld) [#/Vol] 288 10*3/uL 150 - 400 k/uL [facility] RBC (Bld) [#/Vol] 4.64 10*6/uL 3.90 - 5.2 0 m/uL [facility] WBC (Bld) [#/Vol] 15.97 10*3/uL High 3.70 - 11 .00 k/uL [facility] DXA-AXIAL SKELETONon 022 [facility] Clinical Summary: Cassi vivas 10-29-2021 MC75 OP Visit Invalid Interpretation Code [facility] [place] [facility] Work Phone: Office Visit: Test Result, R m: 1on 10-29-2021 NEGATED: Highlighted rowMRI (magnetic resonance imaging) history of the Lumbar Spine with and without contrast on 10/25/2021 at [facility] Invalid Interpretation Code [facility] Work Phone: NEGATED: Highlighted rowxray history of the Lumbosacral on 08/22/2021 at [facility] Invalid Interpretation Code [facility] [facility] Work Phone: Vital Signs Date Time Vital Sign Value Performing Clinician Facility 01-06-2025 09:14-0400 Body mass index (BMI) [Ratio] 22.4 kg/m2 Alona Cruz MD Work Phone: [facility] 01-06-2025 09:14-0400 Body weight 58.97 kg Alona Cruz MD Work Phone: [facility] 01-06-2025 09:14-0400 Diastolic blood pressure 74 mm[Hg] Alona Cruz MD Work Phone: [facility] 01-06-2025 09:14-0400 Heart rate 64 /min Alona Cruz MD Work Phone: [facility] 01-06-2025 09:14-0400 Respiratory rate 16 /min Alona Cruz MD Work Phone: [facility] 01-06-2025 09:14-0400 SaO2% (BldA) [Mass fraction] 96 % Alona Cruz MD Work Phone: [facility] 01-06-2025 09:14-0400 Systolic blood pressure 120 mm[Hg] Alona Cruz MD Work Phone: [facility] 12-27-2024 07:32-0400 Body height 162.[address] Tacos Hein MD Work Phone: [facility] 12-27-2024 07:32-0400 Body mass index (BMI) [Ratio] 22.3 kg/m2 Dr. Tacos Hein MD Work Phone: [facility] 12-27-2024 07:32-0400 Body weight 58.[address] Tacos Hein MD Work Phone: [facility] 12-27-2024 07:32-0400 Diastolic blood pressure 74 mm[Hg] Dr. Tacos Hein MD Work Phone: [facility] 12-27-2024 07:32-0400 Heart rate 72 /min Dr. Tacos Hein MD Work Phone: [facility] 12-27-2024 07:32-0400 Respiratory rate 18 /min Dr. Tacos Hein MD Work Phone: [facility] 12-27-2024 07:32-0400 Systolic blood pressure 107 mm[Hg] Dr. Tacos Hein MD Work Phone: [facility] 12-26-2024 13:00-0400 Body mass index (BMI) [Ratio] 22.4 kg/m2 Tacos Hein MD Work Phone: [facility] 12-26-2024 13:00-0400 Body weight 58.97 kg Tacos Hein MD Work Phone: [facility] 12-26-2024 13:00-0400 Diastolic blood pressure 70 mm[Hg] Tacos Hein MD Work Phone: [facility] 12-26-2024 13:00-0400 Heart rate 81 /min Tacos Hein MD Work Phone: [facility] 12-26-2024 13:00-0400 Respiratory rate 16 /min Tacos Hein MD Work Phone: [facility] 12-26-2024 13:00-0400 SaO2% (BldA) [Mass fraction] 98 % Tacos Hein MD Work Phone: [facility] 12-26-2024 13:00-0400 Systolic blood pressure 108 mm[Hg] Tacos Hein MD Work Phone: [facility] 11-21-2024 12:00-0400 Diastolic blood pressure 81 mm[Hg] Adriana Kashuba ENROLLMENT PROCESSOR Work Phone: [facility] 11-21-2024 12:00-0400 Heart rate 84 /min Adriana Salcedo ENROLLMENT PROCESSOR Work Phone: [facility] 11-21-2024 12:00-0400 Systolic blood pressure 129 mm[Hg] Adriana Salcedo ENROLLMENT PROCESSOR Work Phone: [facility] 11-15-2024 12:11-0400 Body temperature 98.6 [degF] Dr. Tacos Hein MD Work Phone: [facility] 11-15-2024 12:11-0400 Diastolic blood pressure 80 mm[Hg] Dr. Tacos Hein MD Work Phone: 3(134)945-371906 [place] [address] 11-15-2024 12:11-0400 Heart rate 75 /min Dr. Tacos Hein MD Work Phone: 4(060)293-521457 [place] [address] 11-15-2024 12:11-0400 Respiratory rate 16 /min Dr. Tacos Hein MD Work Phone: 9(913)172-262506 [place] [address] 11-15-2024 12:11-0400 SaO2% (BldA) [Mass fraction] 98 % Dr. Tacos Hein MD Work Phone: 2(102)606-390057 [place] [address] 11-15-2024 12:11-0400 Systolic blood pressure 123 mm[Hg] Dr. Tacos Hein MD Work Phone: 7(708)908-726406 [place] [address] 11-15-2024 09:02-0400 Body height 162.[address] Tacos Hein MD Work Phone: 8(942)294-598006 [place] [address] 11-15-2024 09:02-0400 Body mass index (BMI) [Ratio] 21.9 kg/m2 Dr. Tacos Hein MD Work Phone: 0(400)015-311006 [place] [address] 11-15-2024 09:02-0400 Body weight 58.[address] Tacos Hein MD Work Phone: 4(785)498-709506 [place] [address] 10-20-2024 09:31-0400 Body height 162.3 cm Cody Julian DO Work Phone: [facility] 10-20-2024 09:31-0400 Body mass index (BMI) [Ratio] 22.57 kg/m2 Cody Masci DO Work Phone: [facility] 10-20-2024 09:31-0400 Body temperature 98.2 [degF] Cody Masci DO Work Phone: [facility] 10-20-2024 09:31-0400 Body weight 59.42 kg Cody Masci DO Work Phone: [facility] 10-20-2024 09:31-0400 Diastolic blood pressure 75 mm[Hg] Cody Masci DO Work Phone: [facility] 10-20-2024 09:31-0400 Heart rate 69 /min Cody Masci DO Work Phone: [facility] 10-20-2024 09:31-0400 SaO2% (BldA) [Mass fraction] 98 % Cody Masci DO Work Phone: [facility] 10-20-2024 09:31-0400 Systolic blood pressure 113 mm[Hg] Cody Masci DO Work Phone: [facility] 10-04-2024 14:42-0400 Body height 163.2 cm Cody Masci DO Work Phone: [facility] 10-04-2024 14:42-0400 Body mass index (BMI) [Ratio] 22.57 kg/m2 Cody Masci DO Work Phone: [facility] 10-04-2024 14:42-0400 Body temperature 97 [degF] Cody Masci DO Work Phone: [facility] 10-04-2024 14:42-0400 Body weight 60.1 kg Cody Masci DO Work Phone: [facility] 10-04-2024 14:42-0400 Diastolic blood pressure 66 mm[Hg] Cody Masci DO Work Phone: [facility] 10-04-2024 14:42-0400 Heart rate 76 /min Cody Masci DO Work Phone: [facility] 10-04-2024 14:42-0400 SaO2% (BldA) [Mass fraction] 96 % Cody Montalvoi DO Work Phone: [facility] 10-04-2024 14:42-0400 Systolic blood pressure 101 mm[Hg] Cody Julian DO Work Phone: [facility] 09-13-2024 08:54-0500 Body mass index (BMI) [Ratio] 21.9 kg/m2 Rodymago Ferrerer PA-C Work Phone: [facility] 09-13-2024 08:54-0500 Body weight 58.33 kg Rody Ferrerer PA-C Work Phone: [facility] 09-13-2024 08:54-0500 Diastolic blood pressure 77 mm[Hg] Rodymago Ferrerer PA-C Work Phone: [facility] 09-13-2024 08:54-0500 SaO2% (BldA) [Mass fraction] 96 % Rody Ferrerer PA-C Work Phone: [facility] 09-13-2024 08:54-0500 Systolic blood pressure 111 mm[Hg] Rodymago Ferrerer PA-C Work Phone: [facility] 08-16-2024 10:51-0500 Body height 163.2 cm Tacos Hein MD Work Phone: [facility] 08-16-2024 10:51-0500 Body mass index (BMI) [Ratio] 22.14 kg/m2 Tacos Hein MD Work Phone: [facility] 08-16-2024 10:51-0500 Body weight 58.97 kg Tacos Hein MD Work Phone: [facility] 08-16-2024 10:51-0500 Diastolic blood pressure 78 mm[Hg] Tacos Hein MD Work Phone: [facility] 08-16-2024 10:51-0500 Heart rate 68 /min Tacos Hein MD Work Phone: [facility] 08-16-2024 10:51-0500 Respiratory rate 16 /min Tacos Hein MD Work Phone: [facility] 08-16-2024 10:51-0500 Systolic blood pressure 112 mm[Hg] Tacos Hein MD Work Phone: [facility] 06-30-2024 09:46-0500 Body mass index (BMI) [Ratio] 22.31 kg/m2 Alona Cruz MD Work Phone: [facility] 06-30-2024 09:46-0500 Body weight 58.97 kg Alona Cruz MD Work Phone: [facility] 06-30-2024 09:46-0500 Heart rate 50 /min Alona Cruz MD Work Phone: [facility] 06-30-2024 09:46-0500 Respiratory rate 16 /min Alona Cruz MD Work Phone: [facility] 06-30-2024 09:46-0500 SaO2% (BldA) [Mass fraction] 98 % Alona Cruz MD Work Phone: [facility] 02-12-2024 13:48-0400 Body mass index (BMI) [Ratio] 22.49 kg/m2 Tacos Hein MD Work Phone: [facility] 02-12-2024 13:48-0400 Body weight 59.42 kg Tacos Hein MD Work Phone: [facility] 02-12-2024 13:48-0400 Diastolic blood pressure 80 mm[Hg] Tacos Hein MD Work Phone: [facility] 02-12-2024 13:48-0400 Heart rate 60 /min Tacos Hein MD Work Phone: [facility] 02-12-2024 13:48-0400 Respiratory rate 14 /min Tacos Hein MD Work Phone: [facility] 02-12-2024 13:48-0400 SaO2% (BldA) [Mass fraction] 98 % Tacos Hein MD Work Phone: [facility] 02-12-2024 13:48-0400 Systolic blood pressure 112 mm[Hg] Tacos Hein MD Work Phone: [facility] 12-01-2023 09:45-0400 Body mass index (BMI) [Ratio] 22.66 kg/m2 Alona Cruz MD Work Phone: [facility] 12-01-2023 09:45-0400 Body weight 59.88 kg Alona Cruz MD Work Phone: [facility] 10-13-2023 09:37-0400 Body temperature 97.7 [degF] Nadia Reddy SUPERINTENDENT COMPRESSOR STATIONS.ELL TUTOR Work Phone: [facility] 10-13-2023 09:37-0400 Body weight 60.8 kg Nadia Reddy SUPERINTENDENT COMPRESSOR STATIONS.ELL TUTOR Work Phone: [facility] 10-13-2023 09:37-0400 Diastolic blood pressure 82 mm[Hg] Nadia Reddy SUPERINTENDENT COMPRESSOR STATIONS.ELL TUTOR Work Phone: [facility] 10-13-2023 09:37-0400 Heart rate 83 /min Nadia Reddy SUPERINTENDENT COMPRESSOR STATIONS.ELL TUTOR Work Phone: [facility] 10-13-2023 09:37-0400 Respiratory rate 18 /min Nadia Reddy SUPERINTENDENT COMPRESSOR STATIONS.ELL TUTOR Work Phone: [facility] 10-13-2023 09:37-0400 SaO2% (BldA) [Mass fraction] 99 % Nadia Reddy SUPERINTENDENT COMPRESSOR STATIONS.ELL TUTOR Work Phone: [facility] 10-13-2023 09:37-0400 Systolic blood pressure 126 mm[Hg] Nadia Reddy SUPERINTENDENT COMPRESSOR STATIONS.ELL TUTOR Work Phone: [facility] 08-03-2023 13:41-0500 Body height 165.1 cm [facility] 08-03-2023 13:41-0500 Body mass index (BMI) [Ratio] 22.1 kg/m2 [facility] 08-03-2023 13:41-0500 Body temperature 96.5 [degF] [facility] 08-03-2023 13:41-0500 Body weight 60.46 kg [facility] 08-03-2023 13:41-0500 Diastolic blood pressure 85 mm[Hg] [facility] 08-03-2023 13:41-0500 Heart rate 82 /min [facility] 08-03-2023 13:41-0500 Respiratory rate 18 /min [facility] 08-03-2023 13:41-0500 SaO2% (BldA) [Mass fraction] 99 % [facility] 08-03-2023 13:41-0500 Systolic blood pressure 129 mm[Hg] [facility] 05-27-2023 09:54-0400 Body weight 59.42 kg Marilou Layla PA-C Work Phone: [facility] 05-27-2023 09:54-0400 Diastolic blood pressure 80 mm[Hg] Marilou Layla PA-C Work Phone: [facility] 05-27-2023 09:54-0400 Heart rate 74 /min Marilou Layla PA-C Work Phone: [facility] 05-27-2023 09:54-0400 Respiratory rate 15 /min Marilou Layla PA-C Work Phone: [facility] 05-27-2023 09:54-0400 SaO2% (BldA) [Mass fraction] 100 % Marilou Layla PA-C Work Phone: [facility] 05-27-2023 09:54-0400 Systolic blood pressure 124 mm[Hg] Marilou Layla PA-C Work Phone: [facility] 04-13-2023 08:35-0400 Body height 162.6 cm Alona Cruz MD Work Phone: [facility] 04-13-2023 08:35-0400 Body weight 59.88 kg Alona Cruz MD Work Phone: [facility] 04-13-2023 08:35-0400 Diastolic blood pressure 68 mm[Hg] Alona Cruz MD Work Phone: [facility] 04-13-2023 08:35-0400 Heart rate 80 /min Alona Cruz MD Work Phone: [facility] 04-13-2023 08:35-0400 Respiratory rate 14 /min Alona Cruz MD Work Phone: [facility] 04-13-2023 08:35-0400 SaO2% (BldA) [Mass fraction] 97 % Alona Cruz MD Work Phone: [facility] 04-13-2023 08:35-0400 Systolic blood pressure 112 mm[Hg] Alona Cruz MD Work Phone: [facility] 02-21-2023 13:03-0400 Body temperature 98.2 [degF] Josephine Athy PA-C Work Phone: [facility] 02-21-2023 13:03-0400 Body weight 59.88 kg Josephine Athy PA-C Work Phone: [facility] 02-21-2023 13:03-0400 Diastolic blood pressure 80 mm[Hg] Josephine Athy PA-C Work Phone: [facility] 02-21-2023 13:03-0400 Heart rate 79 /min Josephine Athy PA-C Work Phone: [facility] 02-21-2023 13:03-0400 Respiratory rate 18 /min Josephine Athy PA-C Work Phone: [facility] 02-21-2023 13:03-0400 SaO2% (BldA) [Mass fraction] 97 % Josephine Athy PA-C Work Phone: [facility] 02-21-2023 13:03-0400 Systolic blood pressure 118 mm[Hg] Josephine Athy PA-C Work Phone: [facility] 12-31-2022 13:28-0400 Body temperature 99.19 [degF] Nadia Reddy APRN.ELL TUTOR Work Phone: [facility] 12-31-2022 13:28-0400 Body weight 58.15 kg Nadia Reddy SUPERINTENDENT COMPRESSOR STATIONS.ELL TUTOR Work Phone: [facility] 12-31-2022 13:28-0400 Diastolic blood pressure 80 mm[Hg] Nadia Reddy SUPERINTENDENT COMPRESSOR STATIONS.ELL TUTOR Work Phone: [facility] 12-31-2022 13:28-0400 Heart rate 88 /min Nadia Reddy SUPERINTENDENT COMPRESSOR STATIONS.ELL TUTOR Work Phone: [facility] 12-31-2022 13:28-0400 Respiratory rate 21 /min Nadia Reddy SUPERINTENDENT COMPRESSOR STATIONS.ELL TUTOR Work Phone: [facility] 12-31-2022 13:28-0400 SaO2% (BldA) [Mass fraction] 97 % Nadia Reddy SUPERINTENDENT COMPRESSOR STATIONS.ELL TUTOR Work Phone: [facility] 12-31-2022 13:28-0400 Systolic blood pressure 104 mm[Hg] Nadia Reddy SUPERINTENDENT COMPRESSOR STATIONS.ELL TUTOR Work Phone: [facility] 08-15-2022 08:00-0500 Body height 163.2 cm Tacos Hein MD Work Phone: [facility] 08-15-2022 08:00-0500 Body weight 60.33 kg Tacos Hein MD Work Phone: [facility] 08-15-2022 08:00-0500 Diastolic blood pressure 70 mm[Hg] Tacos Hein MD Work Phone: [facility] 08-15-2022 08:00-0500 Heart rate 83 /min Tacos Hein MD Work Phone: [facility] 08-15-2022 08:00-0500 Respiratory rate 14 /min Tacos Hein MD Work Phone: [facility] 08-15-2022 08:00-0500 Systolic blood pressure 110 mm[Hg] Tacos Hein MD Work Phone: [facility] 01-28-2022 07:07-0400 Body temperature 97.3 [degF] Madison Mariee PA-C Work Phone: [facility] 01-28-2022 07:07-0400 Body weight 60.33 kg Madison Mariee PA-C Work Phone: [facility] 01-28-2022 07:07-0400 Diastolic blood pressure 70 mm[Hg] Madison Mariee PA-C Work Phone: [facility] 01-28-2022 07:07-0400 Heart rate 68 /min Mdaison Mariee PA-C Work Phone: [facility] 01-28-2022 07:07-0400 Respiratory rate 16 /min Madison Mariee PA-C Work Phone: [facility] 01-28-2022 07:07-0400 Systolic blood pressure 106 mm[Hg] Madison Mariee PA-C Work Phone: [facility] 12-17-2021 08:07-0400 Body temperature 97 [degF] Madison Mariee PA-C Work Phone: [facility] 12-17-2021 08:07-0400 Body weight 59.88 kg Madison Mariee PA-C Work Phone: [facility] 12-17-2021 08:07-0400 Diastolic blood pressure 70 mm[Hg] Madison Mariee PA-C Work Phone: [facility] 12-17-2021 08:07-0400 Heart rate 84 /min Madison Mariee PA-C Work Phone: [facility] 12-17-2021 08:07-0400 Respiratory rate 16 /min Madison Mariee PA-C Work Phone: [facility] 12-17-2021 08:07-0400 Systolic blood pressure 100 mm[Hg] Madison Mariee PA-C Work Phone: [facility] NEGATED: Vincent [id number] 08:27-0400 Body height 165.1 cm Susie Limon AT [facility] Work Phone: NEGATED: Highlighted [id number] 08:27-0400 Body height 165 cm Susie Pennington AT [facility] Work Phone: NEGATED: Highlighted [id number] 08:27-0400 Body mass index (BMI) [Ratio] 21.71 kg/m2 Susie Pennington AT [facility] Work Phone: NEGATED: Highlighted [id number] 08:27-0400 Body weight 58.97 kg Susie Pennington AT [facility] Work Phone: NEGATED: Highlighted [id number] 08:270400 Body weight 59 kg Susie Pennington AT [facility] Work Phone: Encounters Encounter Date Encounter Type Care Provider Facility Start: 01-20-2025 End: 01-20-2025 Chart abstracting Tacos Hein MD Work Phone: [facility] Comment on above: Outside [id number] Ordered Start: 01-20-2025 End: 01-20-[address] Tacos Hein MD Work Phone: -Laboratory Start: 01-20-2025 End: 01-20-[address] Kailee Mcnair MD -Laboratory Work Phone: Start: 01-20-2025 End: 01-20-2025 ambulatory Tacos Hein Facility:[facility] Start: 01-16-2025 End: 01-16-2025 ambulatory Barrera Mejia [facility] Comment on above: Spinal stenosis of l umbar region without neurogenic claudication (Primary Dx) Start: 01-06-2025 End: 01-06-2025 Patient encounter procedure Alona Cruz MD Work Phone: Pulmonary Medicine Comment on above: Mild intermittent as thma without complication (HCC) (Primary Dx) Start: 01-06-2025 End: 01-06-2025 ambulatory TACOS HEIN Facility:[facility] Start: 12-30-2024 End: 12-30-2024 ambulatory Barrera Mejia PT [facility] Physical Therapy Comment on above: Spinal stenosis of l umbar region without neurogenic claudication (Primary Dx) Start: 12-27-2024 End: 12-27-2024 Chart abstracting Tacos Hein MD Work Phone: [facility] Comment on above: Outside Cardiology Start: 12-27-2024 End: 12-27-[address] Kailee Mcnair MD -[facility] Work Phone: Start: 12-27-2024 End: 12-27-[address] Tacos Hein MD Work Phone: [facility] Work Phone: Start: 12-26-2024 End: 12-26-2024 Patient encounter procedure Tacos Hein MD Work Phone: [facility] Comment on above: SI (sacroiliac) pain (Primary Dx); Greater trochanteric bursitis of right hip; Numbness and tingling of both feet Start: 12-26-2024 End: 12-26-2024 ambulatory TACOS HEIN Facility:[facility] Start: 12-12-2024 End: 12-12-2024 Telephone encounter Tacos Hein MD Work Phone: [facility] Comment on above: [facility] Start: 12-11-2024 End: 12-22-2024 Follow-up encounter Tess Navarrete APRN.CNP Work Phone: [facility] Comment on above: Results Start: 11-29-2024 End: 11-29-2024 ambulatory Barrera Mejia PT [facility] Physical Therapy Comment on above: Spinal stenosis of l umbar region without neurogenic claudication (Primary Dx) Start: 11-21-2024 End: 11-21-2024 ambulatory Adriana Salcedo ENROLLMENT PROCESSOR Work Phone: [facility] Comment on above: Spinal stenosis of l umbar region without neurogenic claudication (Primary Dx) Start: 11-18-2024 End: 11-18-2024 ambulatory TACOS HEIN Facility:[facility] Start: 11-15-2024 End: 11-15-2024 Emergency department patient visit Dr. Tacos Hein MD Work Phone: -Emergency Department Work Phone: Start: 11-15-2024 End: 11-15-2024 ambulatory Adriana Springerba ENROLLMENT PROCESSOR Work Phone: [facility] Start: 11-10-2024 End: 11-10-2024 Refill Madison Mariee PA-C Work Phone: [facility] Comment on above: Refill Request Start: 11-08-2024 End: 11-08-2024 ambulatory Adriana Springerba ENROLLMENT PROCESSOR Work Phone: [facility] Comment on above: Spinal stenosis of l umbar region without neurogenic claudication (Primary Dx) Start: 10-24-2024 End: 10-24-2024 ambulatory Barrera Mejia PT [facility] Physical Therapy Comment on above: Spinal stenosis [...] Start: 10-12-2024 End: 10-12-2024 ambulatory TACOS HEIN Facility:[facility] Start: 10-12-2024 End: 10-12-2024 Subsequent hospital visit by physician [employer] [facility] (I-Stat/1.5t) Work Phone: Radiology Comment on above: Spinal stenosis of l umbar region without neurogenic claudication [M48.061] Start: 10-07-2024 End: 10-11-2024 Follow-up encounter Rody Pablo PA-C Work Phone: Neurology Comment on above: Results Start: 10-07-2024 End: 10-07-2024 ambulatory TACOS GALVANEY Neurology Comment on above: EMG Start: 10-07-2024 End: 10-07-2024 Patient encounter procedure Emg 2 Neur Francicsa Mc (Max Weight: 850) Neurology Start: 10-05-2024 End: 10-05-2024 ambulatory TACOS [facility] Facility:[facility] Start: 10-05-2024 End: 10-05-2024 Nursing evaluation of patient and report Mi Nurse Work Phone: Family Medicine [facility] Comment on above: Osteoporosis, unspec ified osteoporosis type, unspecified pathological fracture presence (Primary Dx) Start: 10-04-2024 End: 10-04-2024 ambulatory Cody Julian DO Work Phone: Hematology/Oncology Comment on above: Gammopathy, monoclon al (Primary Dx) Start: 10-04-2024 End: 10-04-2024 Patient encounter procedure Cody Julian DO Work Phone: Hematology/Oncology Start: 09-23-2024 End: [...] Start: 09-19-2024 End: 09-19-2024 ambulatory TACOS HEIN Facility:[facility] Start: 09-19-2024 End: 09-19-2024 Subsequent hospital visit by physician [employer] [facility] Work Phone: Radiology Comment on above: Osteoporosis, unspec ified osteoporosis type, unspecified pathological fracture presence [M81.0] Start: 09-13-2024 End: 09-13-2024 Patient encounter procedure Rody Pablo PA-C Work Phone: Neurology Comment on above: Neuropathy (Primary Dx); Peroneal neuropathy, unspecified laterality Start: 09-13-2024 End: 09-13-2024 ambulatory TACOS HEIN Facility:[facility] Start: 09-01-2024 End: 09-01-2024 Telephone encounter Tacos Hein MD Work Phone: [facility] Comment on above: Results (EMG) Start: 08-31-2024 ambulatory Jackson Mcallister Facility:[facility] Start: 08-31-2024 Non-patient / Non-visit Dr. Jackson calix MD -[facility]- Start: 08-31-2024 End: 08-31-[address] Tacos Hein MD -Pulmonary Services/Neurology Work Phone: Start: 08-31-2024 End: 08-31-2024 ambulatory Tacos Hein Facility:[facility] Start: 08-23-2024 End: 08-23-2024 ambulatory Madison Mariee PA-C Work Phone: [facility] Comment on above: Meloxicam Start: 08-22-2024 End: 08-22-2024 Refill Madison Mariee PA-C Work Phone: [facility] Comment on above: Refill Request Appointment Start: 08-17-2024 End: 08-17-2024 Telephone encounter Tacos Hein MD Work Phone: [facility] Comment on above: Results Start: 08-16-2024 End: 08-16-2024 ambulatory TACOS HEIN Facility:[facility] Start: 08-16-2024 End: 08-16-2024 ambulatory TACOS MELVINA Facility:[facility] Start: 08-16-2024 End: 08-16-2024 Patient encounter procedure Tacos Hein MD Work Phone: [facility] Comment on above: Medicare annual well ness visit, subsequent (Primary Dx); Dyslipidemia; Fibromyalgia; Insomnia, unspecified type; Restless leg syndrome; Vitamin D deficiency; Advance directive discussed with patient; Mild intermittent asthma without complication; Osteoporosis, unspecified osteoporosis type, unspecified pathological fracture presence; Numbness and tingling of both feet; Encounter for screening examination for other mental health and behavioral disorders; Screening for depression Start: 08-12-2024 End: 08-12-2024 [facility] Facility:[facility] Start: 08-05-2024 End: 08-23-2024 ambulatory Alona Cruz MD Work Phone: Pulmonary Medicine Comment on above: Qvar Start: 06-30-2024 End: 06-30-2024 [facility] Facility:[facility] Start: 06-30-2024 End: 06-30-2024 Patient encounter procedure Alona Cruz MD Work Phone: Pulmonary Medicine Comment on above: Mild intermittent as thma without complication (Primary Dx); Hoarseness of voice Start: 06-28-2024 End: 06-28-2024 Refill Tess Navarrete APRN.CNP Work Phone: [facility] [place] Comment on above: Refill Request Start: 06-04-2024 End: 06-06-2024 Refill Marilou Rich PA-C Work Phone: Pulmonary Medicine Comment on above: Refill Request Start: 05-31-2024 End: 05-31-2024 Refill Madison Mariee PA-C Work Phone: Family [facility] [place] Comment on above: Refill Request Start: 05-11-2024 End: 05-11-2024 Refill Madison Mariee PA-C Work Phone: [facility] Comment on above: Refill Request Start: 04-06-2024 End: 04-06-2024 [facility] Facility:[facility] Start: 04-06-2024 End: 04-06-2024 Nursing evaluation of patient and report Mi Nurse Work Phone: [facility] Comment on above: Osteoporosis, unspec ified osteoporosis type, unspecified pathological fracture presence (Primary Dx) Start: 04-03-2024 End: 04-04-2024 Refill Tess Navarrete APRN.CNP Work Phone: [facility] Comment on above: Refill Request Start: 03-09-2024 Refill Madison Sanchez on PA-C Work Phone: [facility] Comment on above: Refill Request Start: 03-05-2024 Refill Alona Cruz MD Work Phone: Pulmonary Medicine Comment on above: Refill Request Start: 02-17-2024 ambulatory Jeannie Pool MA [facility] Comment on above: Cholesterol informat ion Start: 02-17-2024 E-mail encounter fro m caregiver Jeannie Pool MA [facility] Start: 02-17-2024 Telephone encounter Tacos Hein MD Work Phone: [facility] Comment on above: Results Start: 02-12-2024 End: 02-12-2024 ambulatory TACOS HEIN Facility:[facility] Start: 02-12-2024 End: 02-12-2024 Patient encounter procedure Tacos Hein MD Work Phone: [facility] Comment on above: Accelerated atrioven tricular junctional rhythm (Primary Dx); Subclinical hypothyroidism; Dyslipidemia; Medication management; Vitamin D deficiency Start: 02-08-2024 Refill Tacos ling MD Work Phone: [facility] Comment on above: Refill Request Start: 01-29-2024 ambulatory Rasta Flavia Facility:[facility] Start: 01-29-2024 End: 01-29-2024 ambulatory Achintya Moya Facility:[facility] Start: 12-11-2023 ambulatory Tacos ling MD Work Phone: [facility] Comment on above: Medication Renewal P roblem [...] End: 10-13-2023 Patient encounter procedure Nadia Reddy APRN.ELL TUTOR Work Phone: [facility] Comment on above: Conjunctivitis of ri ght eye, unspecified conjunctivitis type (Primary Dx); Rhinosinusitis Start: 09-18-2023 End: 09-18-2023 Nursing evaluation of patient and report Mi Nurse Work Phone: [facility] Comment on above: Osteoporosis, unspec ified osteoporosis type, unspecified pathological fracture presence (Primary Dx) Start: 09-09-2023 Telephone encounter Tacos Hein MD Work Phone: [facility] Comment on above: Orders Start: 09-07-2023 ambulatory Taocs ling MD Work Phone: [facility] Comment on above: Reschedule Injection Start: 08-11-2023 Non-patient / Non-visit Dr. Juan Carlos Hein Work Phone: [facility] Start: 08-11-2023 End: 08-11-[address] Tacos Hein Work Phone: [facility] Work Phone: Start: 08-11-2023 End: 08-11-[address] Tacos Hein Work Phone: [facility]-Cardiovascula r Services Work Phone: Start: 08-03-2023 End: 08-03-2023 Emergency department patient visit [facility]-Emergency Department Work Phone: Start: 05-27-2023 End: 05-27-2023 [...] Only Alona Cruz MD Work Phone: [facility] Comment on above: Dyspnea, unspecified type (Primary Dx) Start: 03-19-2023 Refill Tacos ling MD Work Phone: [facility] Comment on above: Refill Request Prescriptions Start: 02-21-2023 End: 02-21-2023 Patient encounter procedure Josephine Iniguez PA-C Work Phone: [facility] Comment on above: Allergic reaction, i nitial encounter (Primary Dx) Start: 02-17-2023 End: 02-17-2023 Subsequent hospital visit by physician [facility] W[facility] (I-Stat) Work Phone: [facility] Comment on above: Chronic sinusitis, u nspecified location [J32.9] Start: 01-29-2023 Chart abstracting Tacos babcock MD Work Phone: [facility] Comment on above: Physical Therapy Start: 01-29-2023 End: 01-29-2023 Nursing evaluation of patient and report Mi Nurse Work Phone: [facility] Comment on above: Osteoporosis, unspec ified osteoporosis type, unspecified pathological fracture presence (Primary Dx) Start: 12-31-2022 End: 12-31-2022 Patient encounter procedure Nadia Reddy SUPERINTENDENT COMPRESSOR STATIONS.ELL TUTOR Work Phone: [facility] Comment on above: Acute otitis media, left (Primary Dx); URI, acute Start: 12-24-2022 Telephone encounter Tom vazquez DO Work Phone: Orthopaedics Comment on above: Release Of Medical R ecords Start: 09-12-2022 ambulatory Tess (Pss) [facility] [place] Comment on above: Population Health Na vigation Outreach ([employer] Care Gaps) Start: 08-28-2022 Telephone encounter Tacos Hein MD Work Phone: [facility] [place] Comment on above: Symptoms Start: 08-18-2022 Telephone encounter Tacos Hein MD Work Phone: Family [facility] [place] Comment on above: Results Start: 08-15-2022 End: 08-15-2022 Patient encounter procedure Tacos Hein MD Work Phone: Family [facility] [place] Comment on above: Medicare annual well ness [...] and report Mi Nurse Work Phone: Family [facility] [place] Comment on above: Osteoporosis, unspec [...] encounter Tacos Hein MD Work Phone: [facility] Comment on above: Orders Start: 06-07-2022 Refill Tacos ling MD Work Phone: [facility] Comment on above: Refill Request Start: 04-21-2022 End: 04-21-2022 Patient encounter procedure Anna Delcid PA-C Work Phone: Orthopaedics Comment on above: Ganglion cyst of fin bib of right hand (Primary Dx) Start: 03-10-2022 End: 03-10-2022 Refill Madison Mariee PA-C Work Phone: [facility] Comment on above: Refill Request Results Osteoporosis, unspec ified osteoporosis type, unspecified pathological fracture presence [M81.0] Start: 02-27-2022 Telephone encounter Jose A novoa MD Work Phone: Orthopaedics Comment on above: Schedule Surgery Start: 02-25-2022 Telephone encounter Madison serna PA-C Work Phone: [facility] Comment on above: Results Start: 02-20-2022 End: 02-20-2022 Patient encounter procedure Jose A Burgess MD Work Phone: Orthopaedics Comment on above: Ganglion cyst Start: 02-20-2022 End: 02-20-2022 Discharged Recurring [place] [facility] Start: 01-28-2022 End: 01-28-2022 Patient encounter procedure Madison Mariee PA-C Work Phone: [facility] Comment on above: Dyslipidemia (Primar y Dx); Insomnia, unspecified type; Lumbar degenerative disc disease; Osteoporosis, unspecified osteoporosis type, unspecified pathological fracture presence; Inflammatory arthritis; Screening for colon cancer; Restless leg syndrome; Intrinsic asthma; Fibromyalgia; Vitamin D deficiency; Ganglion cyst; Age-related osteoporosis without current pathological fracture Start: 01-14-2022 End: 01-14-2022 Nursing evaluation of patient and report Mi Nurse Work Phone: [facility] Comment on above: Osteoporosis, unspec ified osteoporosis type, unspecified pathological fracture presence (Primary Dx) Start: 12-17-2021 End: 12-17-2021 Patient encounter procedure Madison Mariee PA-C Work Phone: [facility] [place] Comment on above: Fibromyalgia (Primar y Dx); Seborrheic dermatitis of scalp; Hand arthritis; Ganglion cyst Start: 11-01-2021 ambulatory Tess (Pss) Karla [facility] [place] Comment on above: Population Health Na vigation Outreach ([employer] Care Gaps) Start: 09-17-2021 End: 09-17-2021 Discharged Recurring [facility]-Physical Therapy Start: 08-14-2021 Patient encounter procedure Tess Acosta [facility] Work Phone: Start: 07-30-2021 End: 07-30-2021 Discharged Recurring [facility]-Massage Therapy, [facility] Procedures Date Procedure Procedure Detail Performing Clinician Start: 11-15-2024 Plain chest X-ray Dr. Sandoval Hein MD Work Phone: Start: 11-15-[address] Tacos Hein MD Work Phone: Start: 10-12-2024 Mri spinal canal lum bar w/o contrast material Rody Pablo PA-C Work Phone: Start: 10-07-2024 Nerve conduction stephan dies 5-6 studies Rody Pablo PA-C Work Phone: Start: 09-19-2024 BD DXA TRABECULAR SAMARA NE SCORE (TBS) Tacos Hein MD Work Phone: Start: 09-19-2024 Dxa bone density stephan dy 1/> sites axial skel Tacos Hein MD Work Phone: Start: 08-16-2024 Adult depression screening assessment Tacos Hein MD Work Phone: Start: 08-12-2024 Lipid 1996 panel - S kelly or Plasma Tacos [...] density stephan dy 1/> sites axial skel Madison Mariee PA-C Work Phone: Start: 01-03-2008 Ghassan ugarte NEGATED: Highlighted rowStart: 10-29-2021 End: 10-29-2021 Documentation of current medications Susie Limon AT Plan of Treatment Date Care Activity Detail Author Start: 08-12-2029 Lipid panel Lipid Screening [facility] Start: 02-11-2029 Lipid panel Lipid Screening [facility] Start: 02-09-2029 Urine microalbumin profile [facility] Start: 02-13-2028 Lipid 1996 panel - S klely or Plasma Lipid Screening [facility] Start: 02-13-2028 Lipid panel Lipid Screening [facility] Start: 02-13-2028 LIPID SCREEN LIPID SCREEN [facility] Start: 08-15-2027 LIPID SCREEN LIPID SCREEN [facility] Start: 08-12-2027 Diabetes Screening Diabetes Screenin [facility] Start: 02-24-2027 LIPID SCREEN LIPID SCREEN [facility] Start: 02-11-2027 Diabetes Screening Diabetes Screenin g [facility] Start: 09-19-2026 Screening for osteoporosis Bone Density Screening [facility] Start: 08-15-2026 LIPID SCREEN LIPID SCREEN [facility] Start: 02-12-2026 DIABETES SCREEN DIABETES SCREEN [facility] Start: 02-12-2026 Diabetes Screening Diabetes Screenin g [facility] Start: 12-26-2025 Annual PCP Team Yeast Distiller jakob Disease Visit Annual PCP Team Chronic Disease Visit [facility] Start: 11-18-2025 Annual PCP Team Yeast Distiller jakob Disease Visit Annual PCP Team Chronic Disease Visit [facility] Start: 08-16-2025 Annual PCP Team Yeast Distiller jakob Disease Visit Annual PCP Team Chronic Disease Visit [facility] Start: 08-16-2025 Anxiety Screening Anxiety Screening [facility] Start: 08-16-2025 Depression Screening Depression Scre ening [facility] Start: 08-16-2025 RSV Vaccine (1 - Ris k 60-74 years 1-dose series) RSV Vaccine (1 - Risk 60-74 years 1-dose series) [facility] Comment on above: Postponed from 02/05 (Insurance Coverage) Start: 08-15-2025 DIABETES SCREEN DIABETES SCREEN [facility] Start: 05-04-2025 End: 05-04-2025 ambulatory 05/04/2025 9:30 AM EDT Visit (SP) Office Hematology/Oncology [address] [place] [address] Cody Julian DO [address] [place] [address] 6MO OV/LABS 04/24* Hematology/Oncology Comment on above: 6MO OV/LABS 04/24* Start: 04-24-2025 End: 04-24-2025 ambulatory 04/24/2025 8:00 AM EDT Results Only [place] Wittwn [facility] [address] [place] [address] CBC/CMP/Myeloma labs/24 hour urine for M-spike [facility] Comment on above: CBC/CMP/Myeloma labs /24 hour urine for M-spike Start: 04-07-2025 End: 04-07-2025 Nursing evaluation of patient and report 04/07/2025 8:00 AM EDT Nurse Visit Family Medicine [facility] [address] [place] [address] Nurse, Nm [address] [place] [address] [facility] [place] Comment on above: Prolia Start: 02-24-2025 DIABETES SCREEN DIABETES SCREEN [facility] Start: 02-20-2025 End: 02-20-2025 ambulatory 02/20/2025 8:15 AM EDT OT/PT/Speech Visit [facility] [address] [place] [address] Barrera Mejia, PT M48.061 (ICD-10-CM) - Spinal stenosis of lumbar region without neurogenic claudication P [facility] Comment on above: M48.061 (ICD-10-CM) - Spinal stenosis of lumbar region without neurogenic claudication P Start: 02-14-2025 End: 02-14-2025 Patient encounter procedure 02/14/2025 8:20 AM EDT Office Visit Family [place] [place] [address] [place] [address] Madison Mariee PA-C [address] [facility] [place] [place] [address] 6 month follow up [facility] [place]a [place] Comment on above: 6 month follow up Start: 02-13-2025 End: 02-13-2025 ambulatory 02/13/2025 8:15 AM EDT OT/PT/Speech Visit [facility] [address] [place] [address] Barrera Mejia, PT M48.061 (ICD-10-CM) - Spinal stenosis of lumbar region without neurogenic claudication P [facility] Comment on above: M48.061 (ICD-10-CM) - Spinal stenosis of lumbar region without neurogenic claudication P Start: 02-11-2025 Annual PCP Team Yeast Distiller jakob Disease Visit Annual PCP Team Chronic Disease Visit [facility] Start: 02-03-2025 End: 05-05-2025 LIPID PANEL, NONFASTING LIPID PANEL, NONFASTING Lab Routine Dyslipidemia Expected: 02/03/2025, Expires: 05/05/2025 [facility] Comment on above: Expected: 02/03/2025 , Expires: 05/05/2025 Start: 02-02-2025 ambulatory Ambulatory Facility:[facility] Start: 01-30-2025 End: 01-30-2025 ambulatory 01/30/2025 8:00 AM EDT OT/PT/Speech Visit [facility] [address] [place] [address] Adriana Salcedo, ZULAY [address] [place] [address] M48.061 (ICD-10-CM) - Spinal stenosis of lumbar region without neurogenic claudication P [facility] Comment on above: M48.061 (ICD-10-CM) - Spinal stenosis of lumbar region without neurogenic claudication P Start: 01-16-2025 End: 01-16-2025 ambulatory 01/16/2025 3:30 PM EDT OT/PT/Speech Visit [facility] [address] [place] [address] Barrera Mejia, PT M48.061 (ICD-10-CM) - Spinal stenosis of lumbar region without neurogenic claudication P [facility] Comment on above: M48.061 (ICD-10-CM) - Spinal stenosis of lumbar region without neurogenic claudication P Start: 01-06-2025 End: 01-06-2025 Patient encounter procedure 01/06/2025 9:30 AM EDT Office Visit Pulmonary Medicine [address] [place] [address] Alona Cruz MD [address] [place] [address] 6 month f/u Pulmonary Medicine Comment on above: 6 month f/u Start: 12-30-2024 End: 12-30-2024 ambulatory 12/30/2024 9:00 AM EDT OT/PT/Speech Visit [facility] [address] [place] [address] Barrera Mejia, PT M48.061 (ICD-10-CM) - Spinal stenosis of lumbar region without neurogenic claudication [facility] Comment on above: M48.061 (ICD-10-CM) - Spinal stenosis of lumbar region without neurogenic claudication Start: 12-27-2024 Evaluation of diagno stic study results [facility] Start: 12-26-2024 End: 12-26-2024 Patient encounter procedure 12/26/2024 1:00 PM EDT Office Visit [facility] [place] [address] [place] [address] Tacos Hein MD [address] [place] [address] [facility] ER, [facility] [address] (ph [phone]). Severe back pain. 12/11/24 [facility] [place] Comment on above: [facility] [address] (ph [phone]). Severe back pain. 12/11/24 Start: 11-29-2024 End: 11-29-2024 ambulatory 11/29/2024 9:15 AM EDT OT/PT/Speech Visit [facility] [address] [place] [address] Barrera Mejia PT M48.061 (ICD-10-CM) - Spinal stenosis of lumbar region without neurogenic claudication [facility] Comment on above: M48.061 (ICD-10-CM) - Spinal stenosis of lumbar region without neurogenic claudication Start: 11-22-2024 End: 11-22-2024 ambulatory 11/22/2024 8:00 AM EDT OT/PT/Speech Visit [facility] [address] [place] [address] Adriana Salcedo, ENROLLMENT PROCESSOR [address] [place] [address] M48.061 (ICD-10-CM) - Spinal stenosis of lumbar region without neurogenic claudication [facility] Comment on above: M48.061 (ICD-10-CM) - Spinal stenosis of lumbar region without neurogenic claudication Start: 11-18-2024 End: 11-18-2024 Patient encounter procedure 11/18/2024 7:20 AM EDT Office Visit [facility] [address] [place] [address] Madison Mariee PA-C [address] [place] [address] [facility] ER 11/15 follow up with SVT, needs Spot Worker referral [facility] [place] Comment on above: [facility] ER 11/15 follow u p with SVT, needs Spot Worker referral Start: 11-15-2024 [facility] Start: 11-15-2024 [facility] Start: 11-15-2024 End: 11-15-2024 ambulatory 11/15/2024 8:45 AM EDT OT/PT/Speech Visit [facility] [address] [place] [address] Adriana Salcedo, ENROLLMENT PROCESSOR [address] [place] [address] M48.061 (ICD-10-CM) - Spinal stenosis of lumbar region without neurogenic claudication [facility] Comment on above: M48.061 (ICD-10-CM) - Spinal stenosis of lumbar region without neurogenic claudication Start: 11-08-2024 End: 11-08-2024 ambulatory 11/08/2024 8:45 AM EDT OT/PT/Speech Visit [facility] [address] [place] [address] Adriana Salcedo, ENROLLMENT PROCESSOR [address] [place] [address] M48.061 (ICD-10-CM) - Spinal stenosis of lumbar region without neurogenic claudication [facility] Comment on above: M48.061 (ICD-10-CM) - Spinal stenosis of lumbar region without neurogenic claudication Start: 10-24-2024 End: 10-24-2024 ambulatory 10/24/2024 9:00 AM EDT OT/PT/Speech Visit [facility] [address] [place] [address] Barrera Mejia, PT Determine why I am being sent to PT. [facility] Comment on above: Determine why I am b eing sent to PT. Start: 10-20-2024 End: 10-20-2024 ambulatory 10/20/2024 9:10 AM EDT Visit (SP) Office Hematology/Oncology [address] [place] [address] Cody Julian DO [address] [place] [address] 2WK OV/LABS 10/04* Hematology/Oncology Comment on above: 2WK OV/LABS 10/04* Start: 10-12-2024 End: 10-12-2024 Patient encounter procedure 10/12/2024 7:00 AM EDT Appointment Radiology [address] [place] [address] Spinal stenosis of lumbar region without neurogenic claudication [M48.061] Radiology Comment on above: Spinal stenosis of l umbar region without neurogenic claudication [M48.061] Start: 10-07-2024 End: 10-07-2024 ambulatory Neurology Comment on above: Neuropathy r L LE Start: 10-05-2024 End: 10-05-2024 Nursing evaluation of patient and report 10/05/2024 2:15 PM EDT Nurse Visit [facility] [place] [address] [place] [address] Nurse, Nm [address] [place] [address] [facility] [place] Comment on above: Prolia Start: 10-05-2024 End: 10-05-2024 Nursing evaluation of patient and report 10/05/2024 11:30 AM EDT Nurse Visit [facility] [place] [address] [place] [address] Nurse, Nm [address] [place] [address] [facility] [place] Comment on above: Prolia Start: 10-04-2024 End: 10-04-2024 [facility] visit new patient 10/04/2024 3:00 PM EDT Visit (SP) Office Hematology/Oncology [address] [place], [place] [id number] Cody Julian DO [address] [place] [address] New patient Hematology/Oncology Comment on above: New patient Start: 10-04-2024 End: 01-03-2025 MONOCLONAL PROTEIN, SERUM (BLOOD) [facility] Work Phone: Comment on above: Expected: 10/04/2024 , Expires: 01/03/2025 Start: 10-04-2024 End: 01-03-2025 PROTEIN ELECTROPHORESIS SERUM W/INTERP [facility] Comment on above: Expected: 10/04/2024 , Expires: 01/03/2025 Start: 10-04-2024 End: 10-04-2024 Nursing evaluation of patient and report 10/04/2024 8:30 AM EDT Nurse Visit Family [facility] [address] [facility] [place], [place] [id number] Nurse, Nm [address] [place] [address] Prolia [facility] Comment on above: Prolia Start: 09-19-2024 End: 09-19-2024 Patient encounter procedure 09/19/2024 1:40 PM EST Appointment Radiology [address] [place] [phone] Osteoporosis, unspecified osteoporosis type, unspecified pathological fracture presence [M81.0] Radiology Comment on above: Osteoporosis, unspec ified osteoporosis type, unspecified pathological fracture presence [M81.0] Start: 09-13-2024 End: 12-13-2024 C reactive protein [Mass/volume] in Serum or Plasma [facility] Comment on above: Expected: 09/13/2024 , Expires: 12/13/2024 Start: 09-13-2024 End: 12-13-2024 Erythrocyte sedimentation rate [facility] Comment on above: Expected: 09/13/2024 , Expires: 12/13/2024 Start: 09-13-2024 End: 12-13-2024 PROTEIN ELECTROPHORESIS SERUM W/INTERP [facility] Comment on above: Expected: 09/13/2024 , Expires: 12/13/2024 Start: 09-13-2024 End: 12-13-2024 Pyridoxine [Mass/volume] in Serum or Plasma [facility] Comment on above: Expected: 09/13/2024 , Expires: 12/13/2024 Start: 09-13-2024 End: 12-13-2024 VITAMIN B1 (THIAMINE), WHOLE BLOOD [facility] Comment on above: Expected: 09/13/2024 , Expires: 12/13/2024 Start: 08-16-2024 End: 11-15-2024 Cobalamin (Vitamin B12) [Mass/volume] in Serum or Plasma [facility] Comment on above: Expected: 08/16/2024 , Expires: 11/15/2024 Start: 08-16-2024 End: 11-15-2024 Folate [Mass/volume] in Serum or Plasma [facility] Comment on above: Expected: 08/16/2024 , Expires: 11/15/2024 Start: 08-16-2024 End: 11-15-2024 Thyrotropin [Units/volume] in Serum or Plasma [facility] Comment on above: Expected: 08/16/2024 , Expires: 11/15/2024 Start: 08-16-2024 End: 11-15-2024 Thyroxine (T4) free [Mass/volume] in Serum or Plasma [facility] Comment on above: Expected: 08/16/2024 , Expires: 11/15/2024 Start: 08-16-2024 End: 08-16-2024 Patient encounter procedure 08/16/2024 10:40 AM EST Office Visit [facility] [place] [address] [place] [address] Tacos Hein MD [address] [place] [address] Medicare wellness [facility] [place] Comment on above: Medicare wellness Start: 08-10-2024 Annual PCP Team Yeast Distiller jakob Disease Visit Annual PCP Team Chronic Disease Visit [facility] Start: 08-05-2024 End: 11-04-2024 25-hydroxyvitamin D3 [Mass/volume] in Serum or Plasma VITAMIN D 25 HYDROXY Lab Routine Vitamin D deficiency Expected: 08/05/2024, Expires: 11/04/2024 [facility] Work Phone: Comment on above: Expected: 08/05/2024 , Expires: 11/04/2024 Start: 08-05-2024 End: 11-04-2024 CBC W Auto Differential panel - Blood COMPLETE BLOOD COUNT AND DIFFERENTIAL Lab Routine Medication management Expected: 08/05/2024, Expires: 11/04/2024 [facility] Comment on above: Expected: 08/05/2024 , Expires: 11/04/2024 Start: 08-05-2024 End: 11-04-2024 Comprehensive metabolic 2000 panel - Serum or Plasma COMPREHENSIVE METABOLIC PANEL Lab Routine Dyslipidemia Expected: 08/05/2024, Expires: 11/04/2024 [facility] Comment on above: Expected: 08/05/2024 , Expires: 11/04/2024 Start: 08-05-2024 End: 11-04-2024 LIPID PANEL, NONFASTING LIPID PANEL, NONFASTING Lab Routine Dyslipidemia Expected: 08/05/2024, Expires: 11/04/2024 [facility] Comment on above: Expected: 08/05/2024 , Expires: 11/04/2024 Start: 08-05-2024 End: 11-04-2024 Urinalysis complete panel - Urine URINALYSIS, WITH MICROSCOPIC Lab Routine Dyslipidemia Expected: 08/05/2024, Expires: 11/04/2024 [facility] Comment on above: Expected: 08/05/2024 , Expires: 11/04/2024 Start: 06-30-2024 End: 06-30-2024 Patient encounter procedure 06/30/2024 10:00 AM EST Office Visit Pulmonary Medicine [address] [place] [address] Alona Cruz MD [address] [place] [address] 6 MO OV Pulmonary Medicine Comment on above: 6 MO OV Start: 04-06-2024 End: 04-06-2024 Nursing evaluation of patient and report 04/06/2024 9:00 AM EDT Nurse Visit [facility] [address] [place] [id number] Nurse, [place] [address] [place] [address] [facility] Comment on above: [facility] Start: 03-27-2024 Covid-19 Vaccine ( season) Covid-19 Vaccine ( season) [facility] Start: 03-27-2024 Covid-19 Vaccine () Covid-19 Vaccine () [facility] Start: 03-27-2024 Influenza vaccination Influenza Vacc ine (#1) [facility] Start: 03-10-2024 Screening for osteoporosis Bone Density Screening [facility] Start: 02-13-2024 ANNUAL PCP TEAM AIR EXPORT AGENT JAKOB DISEASE VISIT ANNUAL PCP TEAM CHRONIC DISEASE VISIT [facility] Start: 02-12-2024 End: 02-12-2024 Patient encounter procedure 02/12/2024 2:00 PM EDT Office Visit [facility] [address] [place] [address] Tacos Hein MD [address] [place] [address] Hospital follow up [facility] Comment on above: Hospital follow up Start: 01-22-2024 DIABETES SCREEN DIABETES SCREEN [facility] Start: 12-01-2023 End: 12-01-2023 Patient encounter procedure 12/01/2023 10:00 AM EDT Office Visit Pulmonary Medicine [address] [place] [address] Alona Cruz MD [address] [place] [address] 6 mo follow up Pulmonary Medicine Comment on above: 6 mo follow up Start: 08-15-2023 ANNUAL PCP TEAM AIR EXPORT AGENT JAKOB DISEASE VISIT ANNUAL PCP TEAM CHRONIC DISEASE VISIT [facility] Start: 08-15-2023 COVID-19 VACCINE (5 - Booster for Moderna series) COVID-19 VACCINE (5 - Booster for Moderna series) [facility] Comment on above: Postponed from 12/30 (Declined at this time) Start: 08-15-2023 COVID-19 VACCINE (5 - Moderna series) COVID-19 VACCINE (5 - Moderna series) [facility] Comment on above: Postponed from 12/30 (Declined at this time) Start: 08-15-2023 SHINGRIX VACCINE (3 of 3) DAVID GRIX VACCINE (3 of 3) [facility] Comment on above: Postponed from 03/19 (Insurance Coverage) Start: 08-03-2023 [facility] Start: 07-27-2023 Advance Directive Discussion Advance Directive Discussion [facility] Start: 07-27-2023 Behavioral Health Screening Behavioral Health Screening [facility] Start: 07-27-2023 Depression Assessment Depression Ass essment [facility] Start: 04-13-2023 End: 06-13-2023 ALGN [place] [facility] ALGN [facility] Lab Routine Mild persistent asthma without complication Expected: 04/13/2023, Expires: 06/13/2023 [facility] Work Phone: Comment on above: Expected: 04/13/2023 , Expires: 06/13/2023 Start: 03-27-2023 Covid-19 Vaccine ( season) Covid-19 Vaccine ( season) [facility] Start: 03-27-2023 Influenza vaccination C [facility] Start: 01-28-2023 ANNUAL PCP TEAM AIR EXPORT AGENT JAKOB DISEASE VISIT ANNUAL PCP TEAM CHRONIC DISEASE VISIT [facility] Start: 12-17-2022 ANNUAL PCP TEAM AIR EXPORT AGENT JAKOB DISEASE VISIT ANNUAL PCP TEAM CHRONIC DISEASE VISIT [facility] Start: 09-20-2022 End: 11-20-2022 CBC W Auto Differential panel - Blood CBC + DIFF Lab Routine Leukocytosis, unspecified type Expected: 09/20/2022, Expires: 11/20/2022 [facility] Work Phone: Comment on above: Expected: 09/20/2022 , Expires: 11/20/2022 Start: 08-15-2022 End: 10-15-2022 25-hydroxyvitamin D3 [Mass/volume] in Serum or Plasma [facility] Work Phone: Comment on above: Expected: 08/15/2022 , Expires: 10/15/2022 Start: 08-15-2022 End: 10-15-2022 Comprehensive metabolic 2000 panel - Serum or Plasma [facility] Work Phone: Comment on above: Expected: 08/15/2022 , Expires: 10/15/2022 Start: 08-15-2022 End: 10-15-2022 LIPID PANEL, NONFASTING [facility] Work Phone: Comment on above: Expected: 08/15/2022 , Expires: 10/15/2022 Start: 08-15-2022 End: 10-15-2022 Urinalysis complete panel - Urine [facility] Work Phone: Comment on above: Expected: 08/15/2022 , Expires: 10/15/2022 Start: 08-14-2022 ANNUAL PCP TEAM AIR EXPORT AGENT JAKOB DISEASE VISIT ANNUAL PCP TEAM CHRONIC DISEASE VISIT [facility] Start: 07-27-2022 ADVANCE DIRECTIVE DISCUSSION ADVANCE DIRECTIVE DISCUSSION [facility] Start: 07-27-2022 DEPRESSION ASSESSMENT DEPRESSION ASS ESSMENT [facility] Start: 03-27-2022 Influenza vaccination INFLUENZA (#1) [facility] Start: 01-28-2022 End: 03-30-2022 25-hydroxyvitamin D3 [Mass/volume] in Serum or Plasma VITAMIN D 25 HYDROXY Lab Routine Vitamin D deficiency Expected: 01/28/2022, Expires: 03/30/2022 [facility] Work Phone: Comment on above: Expected: 01/28/2022 , Expires: 03/30/2022 Start: 01-28-2022 End: 03-30-2022 CBC W Auto Differential panel - Blood CBC + DIFF Lab Routine Dyslipidemia Expected: 01/28/2022, Expires: 03/30/2022 [facility] Work Phone: Comment on above: Expected: 01/28/2022 , Expires: 03/30/2022 Start: 01-28-2022 End: 03-30-2022 Comprehensive metabolic 2000 panel - Serum or Plasma COMP METABOLIC PANEL Lab Routine Fibromyalgia Expected: 01/28/2022, Expires: 03/30/2022 [facility] Work Phone: Comment on above: Expected: 01/28/2022 , Expires: 03/30/2022 Start: 01-28-2022 End: 03-30-2022 LIPID PANEL, NONFASTING LIPID PANEL, NONFASTING Lab Routine Dyslipidemia Expected: 01/28/2022, Expires: 03/30/2022 [facility] Work Phone: Comment on above: Expected: 01/28/2022 , Expires: 03/30/2022 Start: 01-22-2022 COLORECTAL CANCER SCREENING COLORECTAL CANCER SCREENING [facility] Start: 01-22-2022 FECAL OCCULT BLOOD FECAL OCCULT BLOO D [facility] Start: 01-22-2022 Screening for malign ant neoplasm of colon Fecal Occult Blood [facility] Start: 01-21-2022 SHINGRIX VACCINE (2 of 3) DAVID GRIX VACCINE (2 of 3) [facility] Comment on above: Postponed from 08/17 (Insurance Coverage) Start: 12-30-2021 COVID-19 VACCINE (5 - Booster for Moderna series) COVID-19 VACCINE (5 - Booster for Moderna series) [facility] Start: 07-27-2021 ADVANCE DIRECTIVE DISCUSSION ADVANCE DIRECTIVE DISCUSSION [facility] Start: 07-27-2021 DEPRESSION ASSESSMENT DEPRESSION ASS ESSMENT [facility] Start: 03-19-2021 SHINGRIX VACCINE (3 of 3) DAVID GRIX VACCINE (3 of 3) [facility] Start: 2012 RSV Vaccine (1 - 1-d ose 60+ series) RSV Vaccine (1 - 1-dose 60+ series) [facility] Start: 2012 RSV Vaccine (1 - Ris k 60-74 years 1-dose series) RSV Vaccine (1 - Risk 60-74 years 1-dose series) [facility] Start: 01-02-2009 Colonoscopy COLONOSCOPY [facility] Start: 01-02-2009 Screening for malign ant neoplasm of colon Colonoscopy [facility] Start: 02-05-1997 COLOGUARD (FIT-DNA) COLOGUARD (FIT-D NA) [facility] Start: 02-05-[address] COLONOGRAPHY [facility] Start: 02-05-1997 Screening for malign ant neoplasm of colon [facility] Start: 02-05-1997 SIGMOIDOSCOPY SIGMOIDOSCOPY [facility] Start: 02-05-1970 Anxiety Screening Anxiety Screening [facility] Start: 02-05-1970 Depression Screening Depression Scre ening [facility] End: 09-15-2025 BD DXA TRABECULAR BONE SCORE (TBS) BD DXA TRABECULAR BONE SCORE (TBS) Radiology Routine Osteoporosis, unspecified osteoporosis type, unspecified pathological fracture presence 1 Occurrences starting 08/16/2024 until 09/15/2025 [facility] Comment on above: 1 Occurrences starti ng 08/16/2024 until 09/15/2025 End: 02-27-2023 Dxa bone density study 1/ sites axial skel DXA-AXIAL SKELETON Radiology Routine Osteoporosis, unspecified osteoporosis type, unspecified pathological fracture presence 1 Occurrences starting 01/28/2022 until 02/27/2023 [facility] Work Phone: Comment on above: 1 Occurrences starti ng 01/28/2022 until 02/27/2023 End: 09-15-2025 DXA Skeletal system.axial Views for bone density DXA-AXIAL SKELETON Radiology Routine Osteoporosis, unspecified osteoporosis type, unspecified pathological fracture presence 1 Occurrences starting 08/16/2024 until 09/15/2025 [facility] Work Phone: Comment on above: 1 Occurrences starti ng 08/16/2024 until 09/15/2025 End: 09-13-2025 EMG(NEURO/NI) EMG(NEURO/NI) EMG Routine Neuropathy 1 Occurrences starting 09/13/2024 until 09/13/2025 [facility] Work Phone: Comment on above: 1 Occurrences starti ng 09/13/2024 until 09/13/2025 MONOCLONAL PROT 24 U R W/INTERP MONOCLONAL PROT 24 UR W/INTERP Lab Routine Gammopathy, monoclonal Ordered: 10/04/2024 [facility] Comment on above: Ordered: 10/04/2024 End: 11-06-2025 MR Lumbar spine WO contrast MRI LUMBAR SPINE WO IVCON Radiology Routine Spinal stenosis of lumbar region without neurogenic claudication 1 Occurrences starting 10/07/2024 until 11/06/2025 [facility] Work Phone: Comment on above: 1 Occurrences starti ng 10/07/2024 until 11/06/2025 Patient Education \cps-sql1\CPS_ PtEducati on\CDC_FALL_PREVENTION. pdf [facility] Work Phone: Patient Education [facility] Work Phone: Patient referral [facility] Work Phone: PROT ELEC UR 24HR W/ M SPIKE (P) PROT ELEC UR 24HR W/M SPIKE (P) Lab Routine Gammopathy, monoclonal Ordered: 10/04/2024 [facility] Comment on above: Ordered: 10/04/2024 PROT ELEC UR 24HR W/ M SPIKE AND INTERP PROT ELEC UR 24HR W/M SPIKE AND INTERP Lab Routine Gammopathy, monoclonal Ordered: 10/04/2024 [facility] Comment on above: Ordered: 10/04/2024 Protein [Mass/time] in 24 hour Urine PROTEIN, 24 HOUR URINE Lab Routine Gammopathy, monoclonal Ordered: 10/04/2024 [facility] Comment on above: Ordered: 10/04/2024 End: 04-24-2024 Radiologic exam chest 2 views XR CHEST 2V FRONTAL/LAT Radiology Routine Dyspnea, unspecified type 1 Occurrences starting 03/26/2023 until 04/24/2024 [facility] Work Phone: Comment on above: 1 Occurrences starti ng 03/26/2023 until 04/24/2024 End: 04-24-2024 SPIROMETRY WITH DILATOR IF OBSTRUCTED SPIROMETRY WITH DILATOR IF OBSTRUCTED PFT Routine Dyspnea, unspecified type 1 Occurrences starting 03/26/2023 until 04/24/2024 [facility] Work Phone: Comment on above: 1 Occurrences starti ng 03/26/2023 until 04/24/2024 [facility] Immunizations Immunization Date Immunization Notes Care Provider Roney odell 04-11-2024 influenza, high dose seasonal, preservative-free Tacos Hein MD Work Phone: [facility] 05-27-2023 influenza (HD-IIV4) vaccine, age 65+ yr, high dose, quadrivalent, PF (FLUZONE HIGH-DOSE) Marilou Rich PA-C Work Phone: [facility] 05-27-2023 influenza virus vacc ine, unspecified formulation Tacos Hein MD Work Phone: [facility] 04-22-2022 influenza (aIIV4) vaccine, age 65+ yr, quadrivalent, PF (FLUAD QUADRIVALENT) Tacos Hein MD Work Phone: [facility] 04-22-2022 zoster vaccine recombinant Tacos Hein MD Work Phone: [facility] 04-22-2022 influenza virus vacc ine, unspecified formulation Alona Cruz MD Work Phone: [facility] 11-04-2021 COVID-19 vaccine, booster dose (MODERNA) Madison Mariee PA-C Work Phone: [facility] 08-14-2021 pneumococcal polysaccharide vaccine, 23 valent [facility] 05-14-2021 influenza (aIIV4) vaccine, age 65+ yr, quadrivalent, PF (FLUAD QUADRIVALENT) Madison Mariee PA-C Work Phone: [facility] 05-14-2021 influenza, high dose seasonal, preservative-free [facility] Work Phone: 01-22-2021 zoster vaccine recombinant Madison Mariee PA-C Work Phone: [facility] 11-15-2020 COVID-19 vaccine, fu ll dose (MODERNA) [facility] Work Phone: 10-11-2020 COVID-19 vaccine, fu ll dose (MODERNA) [facility] Work Phone: 04-19-2020 influenza, seasonal, injectable [facility] 05-24-2019 influenza, high dose seasonal, preservative-free [facility] 02-09-2019 pneumococcal conjuga te vaccine, 13 valent [facility] 02-09-2019 tetanus toxoid, redu ira diphtheria toxoid, and acellular pertussis vaccine, adsorbed [facility] 04-08-2018 influenza, high dose seasonal, preservative-free [facility] 05-19-2017 influenza, seasonal, injectable [facility] Work Phone: 05-15-2016 influenza, injectabl e, quadrivalent, contains preservative [facility] Work Phone: 05-15-2016 pneumococcal polysaccharide vaccine, 23 valent [facility] Work Phone: 04-30-2015 influenza, seasonal, injectable [facility] Work Phone: 05-24-2014 influenza, seasonal, injectable [facility] 06-22-2012 zoster vaccine, live [facility] Payers Date Payer Category Payer Self-pay [id number] 2021 Medicare AETNA MEDICARE A ETNA MEDICARE PPO [id number] 2021-Present [phone] [address] [place] [address] PPO [id number] 2021 Medicare AETNA MEDICARE A ETNA MEDICARE PPO [id number] 2021-Present [phone] [address] [place] [address] PP [id number] 2021 Medicare (Managed Care) [employer] [place] [id number] 2021 Private Health Insurance [facility] [id number] 2016 Unknown [id number] Unknown [id number] Unknown [id number] Unknown [id number] Unknown [id number] Unknown [id number] Unknown [id number] Unknown [id number] Unknown [id number] Unknown [id number] Social History Date Type Detail Facility Start: 10-30-2021 End: 10-30-2021 Assertion Unknown if ever smoked [facility] Work Phone: Start: 02-18-2011 End: 12-26-2024 Tobacco smoking status NHIS Never smoked tobacco [facility] Start: 08-14-2021 End: 01-06-2025 Alcohol intake Current drinker of alcohol (finding) [facility] Start: 08-12-2021 End: 08-08-2022 History SDOH Alcohol Frequency 3 [facility] Start: 08-12-2021 End: 08-08-2022 History SDOH Alcohol Std Drinks 1 [facility] Start: 08-12-2021 End: 08-08-2022 History SDOH Social Connections Get Together 2 [facility] Start: 08-12-2021 End: 08-08-2022 History SDOH Physical Activity DPW 5 [facility] Start: 08-12-2021 History SDOH Physical Activity MPS 4 [facility] Start: 04-03-2020 Education 18 [facility] Start: 1950 Sex Assigned At Female [facility] Start: 12-07-2021 End: 04-21-2022 Exposure to SARS-CoV-2 (event) Not sure [facility] Start: 01-04-2022 End: 01-14-2022 Exposure to SARS-CoV-2 (event) Unable to assess [facility] Start: 02-18-2011 Tobacco use and exposure Smokeless tobacco non-user [facility] Start: 08-08-2022 End: 01-29-2023 History of Social function [facility] Start: 08-08-2022 End: 01-29-2023 Social connection and isolation panel [facility] Attends Orthodox Services Not on file [facility] Do you belong to any clubs or organizations such as yazidi groups, unions, fraternal or athletic groups, or school groups? Yes [facility] Are you now , , , , never or living with a partner? [facility] How often to you hav e a drink containing alcohol? 2-4 times a month [facility] How often do you hav e 6 or more drinks on 1 occasion? Never [facility] Do you feel stress - tense, restless, nervous, or anxious, or unable to sleep at night because your mind is troubled all the time - these days [OSQ] Not at all [facility] (I/We) worried wheth er (my/our) food would run out before (I/we) got money to buy more. Never true [facility] In the past 12 month s, was there a time when you were not able to pay the mortgage or rent on time? No [facility] Start: 2021 Gender identity Identifies as female gender (finding) [facility] Start: 2021 Sexual orientation Heterosexual (finding) [facility] How many standard dr inks containing alcohol do you have on a typical day? 1 or 2 [facility] Do you feel stress - tense, restless, nervous, or anxious, or unable to sleep at night because your mind is troubled all the time - these days [OSQ] Only a little [facility] Start: 11-15-2024 Sex Female (finding) [facility] Functional Status Date Assessment Result Facility 01-01-2015 Are you deaf, or do you have serious difficulty hearing No 01/01/2015 3:10 PM EDT Jeannie Pool MA No [facility] 01-01-2015 Are you blind, or do you have serious difficulty seeing, even when wearing glasses No 01/01/2015 3:10 PM EDT Jeannie Pool MA No [facility] 01-01-2015 Do you have serious difficulty walking or climbing stairs No 01/01/2015 3:10 PM EDT Jeannie Pool MA No [facility] 01-01-2015 Do you have difficul ty dressing or bathing No 01/01/2015 3:10 PM EDT Jeannie Pool MA [facility] 01-01-2015 Because of a physica l, mental, or emotional condition, do you have difficulty doing errands alone such as visiting a physician's office or shopping No 01/01/2015 3:10 PM EDT Jeannie Pool MA [facility] Mental Status Date Assessment Result Facility 11-15-2024 Cognitive function Voice/Name [facility] Work Phone: 08-03-2023 Cognitive function Level Of Cons ciousness Awake;Alert;Appropriate;Fol lows Commands [facility] Work Phone: 01-01-2015 Because of a physica l, mental, or emotional condition, do you have serious difficulty concentrating, remembering, or making decisions No 01/01/2015 3:10 PM EDT Jeannie Pool MA No [facility] Clinical Notes 01-03-2008 to 01-20-2025 Ruchi Valenzuela MA - 01/20/2025 9:30 AM Barrera Hedrick PT - 01/18/2025 3:28 PM Barrera Hedrick PT - 01/16/2025 4:02 PM Alona Fry MD - 01/06/2025 9:30 AM EDT Note Date & Type Note Facility 01-20-2025 Note HNO ID: [id number] Author: RUCHI VALENZUELA MA Service: ? Author Type: Milliner Helper Type: Progress Notes Filed: 01/20/2025 09:35 Note Text: Lipid, TSH labs. View External Labs - Lipid, TSH [ID [id number]] [facility] 01-20-2025 History of Present illness Narrative Lipid, TSH labs. View External Labs - Lipid, TSH [ID [id number]] documented in this encounter [facility] 01-18-2025 Note HNO ID: [id number] Author: BARRERA MEJIA PT Service: ? Author [...] treatment included: Therapeutic exercise, Manual therapy, and Self-custodial management. Goals updated on 01/18/2025. Goals for [...] Stop Time : 1608 Barrera Mejia, PT [facility] 01-18-2025 History of Present illness Narrative Images from the original note were not included. Episode Visit Count: 6 Therapist That Will Accept/Oversee The Plan Of Care: Barrera Mejia Start of Care Date: 10/24/24 Onset Date: 07/27/24 Plan of Care Certification Date: 10/24/24 Next Certification Due Date: 01/23/25 RE[facility]ABIL[facility]ATION AND SPORTS THERAPY PHYSICAL THERAPY DISCONTINUANCE OF CARE PLAN OF CARE UPDATE: Assessment: Lupis Nick Zafarrogelio is discontinued from Physical Therapy services due to goal achievement.. Patient was seen for 6 visits from Start of Care Date: 10/24/24 to 01/18/2025 and treatment included: Therapeutic exercise, Manual therapy, and Self-custodial management. Goals updated on 01/18/2025. Goals for [...] Stop Time : 1608 Barrera Mejia PT Program_ID:[id number] Access Code: [email or web address] URL: [email or web address] Date: 01-16-2025 Prepared By: Barrera Mejia Program [...] - Seated Thoracic Flexion and Rotation with Pakistani Ball - 1 x daily - 7 x weekly - 2 sets - 10 reps - Supine Lower Trunk Rotation - 1 x daily - 7 x weekly - 2 sets - 10 reps - Hooklying Lumbar Traction - 1 x daily - 7 x weekly - 3 sets - 10 reps documented in this encounter [facility] 01-06-2025 History of Present illness Narrative Images from the original note were not included. . Respiratory Tendoy Note Patient name: Lupis Brito PCP: Tacos Hein MD CC: Asthma HPI: Lupis Brito 74 year old female never smoker with PMH significant for asthma diagnosed by methacholine challenge, allergic rhinitis, fibromyalgia, osteoporosis, neuropathy presenting for follow-up. Previous therapy with ICS (Arnuity) and as needed albuterol. At [facility], she had issues with dysphonia due to [...] sooner with problems Alona Cruz MD Res[facility] T[facility]oy documented in this encounter [facility] 01-06-2025 Note HNO ID: [id number] Author: ALONA CRUZ MD Service: ? Author Type: Physician Type: Progress Notes Filed: 01/06/2025 09:43 Note Text: . Respiratory Tendoy Note Patient name: Lupis Brito PCP: Tacos Hein MD CC: Asthma HPI: Lupis Brito 74 year old female never smoker with PMH significant for asthma diagnosed by methacholine challenge, allergic rhinitis, fibromyalgia, osteoporosis, neuropathy presenting for follow-up. Previous therapy with ICS (Arnuity) and as needed albuterol. At [facility], she had issues with dysphonia due to [...] Substance Use To (more content not included)... [facility] 12-30-2024 Note HNO ID: [id number] Author: BARRERA MEJIA PT Service: ? Author [...] PROGRESS REPORT PLAN OF CARE UPDATE: Assessment: Lupsi Brito demonstrates difficulty with standing, walking, and [...] Patient to be seen for Therapeutic exercise (29147), Neuromuscular re-education (47657), Manual therapy (78851), Therapeutic activities (00707), Self-custodial management (58315), Patient/Family/Caregiver Education, Body Mechanics Training PLAN FOR NEXT VISIT: Continue traction and flexion bias, strengthening per symptom tolerance Classification Pain Mechanism Classification: Neuropathic Low Back Pain Classification: Movement Control SUBJECTIVE: Patient was on a mission trip for a month in [place]. She fell coming out of the RV [...] improve joint mobi (more content not included)... [facility] 12-30-2024 History of Present illness Narrative Episode [...] Patient to be seen for Therapeutic exercise (64443), Neuromuscular re-education (01748), Manual therapy (33539), Therapeutic activities (65068), Self-custodial management (54675), Patient/Family/Caregiver Education, Body Mechanics Training PLAN FOR NEXT VISIT: Continue traction and flexion bias, strengthening per symptom tolerance Classification Pain Mechanism Classification: Neuropathic Low Back Pain Classification: Movement Control SUBJECTIVE: Patient was on a mission trip for a month in [place]. She fell coming out of the RV [...] Stop Time : 942 Barrera Mejia PT Program_ID:[id number] Access Code: [email or web address] URL: [email or web address] [email or web address]/ Date: 12-30-2024 Prepared By: Barrera Mejia Program [...] - Seated Thoracic Flexion and Rotation with Pakistani Ball - 1 x daily - 7 x weekly - 2 sets - 10 reps - Supine Lower Trunk Rotation - 1 x daily - 7 x weekly - 2 sets - 10 reps documented in this encounter [facility] 12-27-2024 Note HNO ID: [id number] Author: PROSPER RODRIGUEZ LPN Service: ? Author Type: LICENSED NURSE Type: Progress Notes Filed: 12/27/2024 12:34 Note Text: Scan on 12/27/2024 10:55 AM by Ann Nieves PA-C: Consultation - Cardiology [facility] 12-27-2024 History of Present illness Narrative Scan on 12/27/2024 10:55 AM by Ann Nieves PA-C: Consultation - Cardiology documented in this encounter [facility] 12-27-2024 Evaluation note Diagnosis Onset Date Resolution Asthma chronic December 27, 2024 9:59am Dyslipidemia chronic December 27 9:59am Osteoporosis chronic December 27 9:59am Supraventricular tachycardia chronic December 27, 2024 9:59am [facility] Work Phone: 1(183) 903-378206-03-2025 Progress [facility] [address] [place] [address] OFFICE VISIT Date of Service: 12/27/24 MR#: [id number] Acct: [id number] Name: LUPIS BRITO Rep #: [id number] : 1950 Provider: Dr. Jeffry Mcnair MD Age/Sex: 74/F Location: [facility] Status: Signed HPI HPI History of [...] has had event monitoring done. It showed runsof supraventricular tachycardia. 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 Accompanied by: Is patient in pain?: Yes (02/02 back pain) Allergies clindamycin Allergy (Mild, Verified [...] denosumab 60 mg/mL subcutaneous 60 mg subcut .[id number] bone health 01/28/24 12/27/24 History syringe (Prolia) [...] intranasal DAILY 12/27/24 History mcg/actuation nasal spray,suspension L.acidoph,saliva-BEduardobif-S.therm PO DAILY 12/26/2412/27 History [Acidophilus Probiotic Blend] [...] there were no ST or T wave changesnoted to suggest ischemia and at peak exercise [...] a max rate of 152 bpm, the longestlasting1 hour 11 mins with an abg rate [...] Orders: Orders 12 Lead EKG performed by [facility] Today I47.10 - Supraventricular tachycardia, unspecified, I49.8 [...] Cardiac Ejection fraction %: 55 12/27/24 1043 > Date _ Kailee Mcnair MD Cosigner Signature: Date (if applicable) CC: Dr. Tacos Hein MD ~ [facility]06-02-2025 History of Present illness Narrative* Tacos Hein MD - 12/26/2024 1:00 PM EDT Chief Complaint Patient presents with: Hospital F/U HPI Lupis Brito is a 74 year old female who presents here today for Hospital Discharge Follow up.. Phone note 12/12/2024 Pt reports she was seen in [facility] ER yesterday (12/11/24). Address: [address] [place] [address]. ( # [phone]). Reports she was seen for severe back pain after falling off her RV steps, and falling flat on her back onto soft grassy area. Reports she see's Sakshi for pain management for chronic back problems, and also does therapy at [facility]. Reports the back is not her problem [...] she can take 1 tizanidine. Also prescribed hydrocodone- acetaminophen 5-325 and told not to take this [...] she had spinal stenosis. She was [facility]. Prior to the trip the numbness in the feet had been improving but it did make janaack hurt more. Has noticed weakness in just [...] 2 Puffs as instructed every 4 hours asneeded for wheezing/shortness of breath. MELATONIN ORAL Take [...] symmetric, motor and sensory are normal and symmetrical,negative SLR test, Musculoskeletal: see back section. Has [...] which included preparing to see the patient, xxij-xw-ekyx patient care, completing clinical documentation, performing a medically appropriate examination, counseling and educating the patient/family/caregiver and ordering medications, tests, or procedures. Tacos Hein MD [facility]25 NoteHNO ID: [id number] Author: TACOS HEIN MD Service: ? Author Type: Physician Type: Progress Notes Filed: 12/26/2024 15:12 Note Text: Chief Complaint Patient presents with: Hospital F/U HPI Lupis Brito is a 74 year old female who presents here today for Hospital Discharge Follow up.. Phone note 12/12/2024 Pt reports she was seen in [facility] ER yesterday (12/11/24). Address: [address] [place] [address]. ( # [phone]). Reports she was seen for severe back pain after falling off her RV steps, and falling flat on her back onto soft grassy area. Reports she see's Dr Alves for pain management for chronic back problems, and also does therapy at [facility]. Reports the back is not her problem [...] . Prior to this mission trip out [place] she was on, starting December 01, she [...] mg capsule Mart (more content not included)... [facility]05-29-2025 Telephone encounter Note* Telephone Encounter - Karen Rojas MA - 12/22/2024 3:10 PM EDT Spoke with patient and relayed result. She said she has an appointment with Cardiology on 12/27/24 and prefers to wait on the medication until she sees them and then will go from there. Karen Rojas MA [facility]05-29-2025 Miscellaneous Notes* Telephone Encounter - Karen Rojas MA - 12/22/2024 3:10 PM EDT Spoke with patient and relayed result. She said she has an appointment with Cardiology on 12/27/24 and prefers to wait on the medication until she sees them and then will go from there. Karen Rojas MA * Telephone Encounter - Tess Navarrete APRN.CNP - 12/11/2024 3:04 PM EDT Please let patient know her heart monitor shows SVT or an accelerated regular HR. Recommend starting low dose metoprolol. If patient is agreeable I will send in prescription. documented [facility]05-[facility] Telephone encounter Note * Telephone Encounter - Prosper Rodriguez LPN - 12/12/2024 2:46 PM EDT Pt notified of same and will contact. Dr Alves's office. Prosper Rodriguez LPN [facility]05-19-2025 Miscellaneous Notes* Telephone Encounter - Prosper Rodriguez LPN - 12/12/2024 2:46 PM EDT Pt notified of same and will contact. Dr Alves's office. Prosper Rodriguez LPN * Telephone Encounter - [place] Mariee PA-C - 12/12/2024 2:35 PM EDT Agree with patient discussing medication usage with Pain management. * Telephone Encounter - Dorian Thomson RN - 12/12/2024 1:42 PM EDT Pt reports she was seen in [facility] ER yesterday (12/11/24). Address: [address] [place] [address], [place], [place]. ( # [phone]). Reports she was seen for severe back pain after falling off her RV steps, and falling flat on her back onto soft grassy area. Reports she see's Sakshi for pain management for chronic back problems, and also does therapy at [facility]. Reports the back is not her problem [...] she can take 1 tizanidine. Also prescribed hydrocodone- acetaminophen 5-325 and told not to take this one with the muscle relaxers. Reports the hydrocodone/acet doesn't really give relief so she took advil dual action 250- 125 mg. Reports the ER only gave her a couple days worth of these pills and told her to call pcp for more. Scheduled hosp f/u for 12/26/24 with pcp. Pt will not return to [place] for 2 weeks. Wants to know if pcp can send Rx for the muscle relaxers and pain medication to where she is at in [place], [place]? Advised pt pcp is out of office until Thu and I will be sending message to Syl Mariee. Advised patient provider would not send controlled, but will ask about the muscle relaxers. Pt states she will try to call Dr. Malik office also. Please advise patient and phone her with reply. documented in [facility] encounter[facility]05-[facility] Telephone encounter Note * Telephone Encounter - [place] Mariee PA-C - 12/12/2024 2:35 PM EDT Agree with patient discussing medication usage with Pain management. [facility]05-19-2025 Telephone encounter Note* Telephone Encounter - Dorian Thomson RN - 12/12/2024 1:42 PM EDT Pt reports she was seen in [facility] ER yesterday (12/11/24). Address: [address] [place] [address]. ( # [phone]). Reports she was seen for severe back pain after falling off her RV steps, and falling flat on her back onto soft grassy area. Reports she see's Sakshi for pain management for chronic back problems, and also does therapy at [facility]. Reports the back is not her problem [...] she can take 1 tizanidine. Also prescribed hydrocodone- acetaminophen 5-325 and told not to take this one with the muscle relaxers. Reports the hydrocodone/acet doesn't really give relief so she took advil dual action 250- 125 mg. Reports the ER only gave her a couple days worth of these pills and told her to call pcp for more. Scheduled hosp f/u for 12/26/24 with pcp. Pt will not return to [place] for 2 weeks. Wants to know if pcp can send Rx for the muscle relaxers and pain medication to where she is at in [place], [place]? Advised pt pcp is out of office until Thu and I will be sending message to Syl Mariee. Advised patient provider would not send controlled, but will ask about the muscle relaxers. Pt states she will try to call Dr. Malik office also. Please advise patient and phone her with reply. [facility]05-18-2025 Telephone encounter Note* Telephone Encounter - Tess Navarrete APRN.CNP - 12/11/2024 3:04 PM EDT Please let patient know her heart monitor shows SVT or an accelerated regular HR. Recommend starting low dose metoprolol. If patient is agreeable I will send in prescription. [facility]05-06-2025 NoteHNO ID: [id number] Author: BARRERA MEJIA PT Service: ? Author [...] Patient to be seen for Therapeutic exercise (99573), Neuromuscular re-education (92867), Manual therapy (10552), Therapeutic activities (33659), Self-custodial management (25032), Gait Training (67820), Patient/Family/Caregiver Education, Body Mechanics Training PLAN FOR [...] mission trip for the next month in [place]. Functional Limitations: sitting, heavy exertion, physical activities [...] Session Stop Time : 958 Barrera Mejia [facility]05-06-2025 History of Present illness Narrative* Barrera Mejia, PT - 11/29/2024 2:45 PM EDT Episode Visit Count: 4 Therapist That Will [...] Patient to be seen for Therapeutic exercise (01815), Neuromuscular re-education (98748), Manual therapy (01535), Therapeutic activities (64073), Self-custodial management (95358), Gait Training (11062), Patient/Family/Caregiver Education, Body Mechanics Training PLAN FOR NEXT VISIT: PN vs DC SUBJECTIVE: Overall patient doing well. She has less numbness in the legs, but her back does hurt alittle more. Notes increasing frequency of her R foot catching, but this usually happens after exercising or long bouts of activity. Notes she feels like she is controlling symptoms well. She is going on a mission trip for the next month in [place]. Functional Limitations: sitting, heavy exertion, physical activities [...] Stop Time : 958 Barrera Mejia PT * Barrera Mejia PT - 11/29/2024 9:39 AM EDT Program_ID:[id number] Access Code: [email or web address] URL: [email or web address] Date: 11-29-2024 Prepared By: Barrera Mejia Program [...] - Seated Thoracic Flexion and Rotation with Pakistani Ball - 1 x daily - 7 [...] sets - 10 reps documented in this encounterCleveland [id number] History of Present illness Narrative* Adriana Salcedo PTA - 11/21/2024 12:55 PM EDT Program_ID:[id number] Access Code: [email or web address] URL: [email or web address] Date: 11-21-2024 Prepared By: Barrera Mejia Program [...] - Seated Thoracic Flexion and Rotation with Pakistani Ball - 1 x daily - 7 [...] weekly - 3 sets - 10 reps * Barrera Mejia, PT - 11/21/2024 12:31 PM EDT Episode Visit Count: 3 Therapist That Will [...] week. She sates her back is not assore initially. Pt states that the L foot [...] [address] Z[address] Alarcon PT documented in this encounterPaul[facility]04-28-2025 NoteHNO ID: [id number] Author: BARRERA MEJIA PT Service: ? Author [...] 1230 Session Stop Time : [address] Alarcon, [facility]04-25-2025 NoteHNO ID: [id number] Author: ABBE RUST MA Service: ? Author Type: Milliner Helper Type: Progress Notes Filed: 11/18/2024 10:39 Note Text: EVENT MONITOR DISPOSABLE PATCH INSTRUCTIONS Patient Name: Lupis Brito [facility] Number: [id number] Skin prepped and cleansed with alcohol Patch secured to prepped area Monitor Activated Serial #: [id number] Patient Instructed: Prescribed order timeframe Bathing guidelines Usage of event button and diary documentation Return of monitor at the end of prescribed order Call with problems [phone] or [phone]. [phone] Patient expresses a good understanding of instructions Abbe Rust [facility]04-25-2025 NoteHNO ID: [id number] Author: TESS NAVARRETE APRN.ELL TUTOR Service: ? Author Type: Nurse Practitioner Type: [...] cardiology referral. Patient requesting to go to [facility]. Reports she was given adenosine which [...] Completed Advance Directive Discussion (more content not included)...[facility]04-25-2025 NoteHNO ID: [id number] Author: MICHELLE ROMAN MD Service: ? Author [...] rare (<1.0%), and no VE Triplets were present.[facility]04-22-2025 Radiology Diagnostic study note [facility] Imaging Services [address] [place] [address] Chest 1 View (Portable) MR#: [id number] Acct: [id number] Name: LUPIS BRITO Rep #: [id number] : 1950 F 74 From: Iva Burgos MD PCP: Dr. Tacos Hein MD Status: REG ER Study:Chest 1 View (Portable) Date of Exam: 11/15/24 Exam# [id number] Ordering Dr: Isai Landeros DO EXAM: XR Chest, 1 View CLINICAL INDICATION: SHORTNESS OF BREATH TECHNIQUE: Frontal view of the chest. COMPARISON: No relevant prior studies available. FINDINGS: LUNGS AND PLEURAL SPACES: Unremarkable. No consolidation. No pneumothorax. HEART: Unremarkable. No cardiomegaly. MEDIASTINUM: Unremarkable. Normal mediastinal contour. BONES/JOINTS: Unremarkable. No acute fracture. RAD/Chest 1 View (Portable) IMPRESSION: No acute cardiopulmonary process. Reading Location: [facility] CC: Dr. Isai Landeros DO; Dr. Tacos Hein MD ~ Certified Legal Secretary Specialist: Signed [facility]04-22-2025 NoteHNO ID: [id number] Author: ADRIANA SALCEDO PTA Service: ? Author [...] happening before. No treatment performed today. ZULAY Alarcon, PT 11/15/24 @ 14:45 Called pt to follow-up and pt stated that she was at home but had supraventricular tachycardia and they got her heart back in rhythm. Adriana Salcedo PTACoshocton [facility]04-22-[facility]25 History of Present illness Narrative* Barrera Mejia, PT - 11/15/2024 8:50 AM EDT Pt enters clinic this morning stating that she was not feeling well and woke up dizzy and her watchalerted her that she had a high heart rate. Pt states that she took a shower and felt a little better. Pt questioning if she should have went to ED. Vitals taken in clinic with BP101/72,Pulse 147, and SpO2 98%. Pt wishes to go to ED due to high resting pulse and PMH of this happening before. No treatment performed today. ZULAY Alarcon, PT 11/15/24 @ 14:45 Called pt to follow-up and pt stated that she was at home but had supraventricular tachycardia and they got her heart back in rhythm. Adriana Salcedo PTA documented in this encounterPaulding [facility] Hospital04-17-2025 Telephone encounter Note * Telephone Encounter - Propser Rodriguez LPN - 11/10/2024 12:54 PM EDT Prescription Refill Information The patient has been [...] Rodriguez LPN November 10, 2024 12:55 PM [facility]04-17-2025 Miscellaneous Notes* Telephone Encounter - Prosper Rodriguez LPN - 11/10/2024 12:54 PM EDT Prescription Refill Information The patient has been [...] 10, 2024 12:55 PM documented in this encounterPaulding [facility] Hospital04-15-2025 History of Present illness Narrative* Adriana Salcedo PTA - 11/08/2024 9:29 AM EDT Program_ID:[id number] Access Code: [email or web address] URL: [email or web address] Date: 11-08-2024 Prepared By: Barrera Mejia Program [...] - Seated Thoracic Flexion and Rotation with Pakistani Ball - 1 x daily - 7 x weekly - 2 sets - 10 reps - Supine Lower Trunk Rotation - 1 x daily - 7 x weekly - 2 sets - 10 reps * Barrera Mejia, PT - 11/08/2024 8:47 AM EDT Episode Visit Count: 2 Therapist That Will Accept/Oversee The Plan Of Care: Barrera Mejia Start of Care Date: 10/24/24 Onset Date: 07/27/24 Plan of Care Certification Date: 10/24/24 Next Certification Due Date: 01/23/25 Patient Identified by Name and Date of : Yes REHABILITATION AND SPORTS THERAPY PHYSICAL THERAPY TREATMENT NOTE ASSESSMENT: Lupis J Zafarrogelio tolerated the session with fatigue, decreased symptoms, [...] and assessment of patient's response to intervention. Self-Custodial Management: 1: Reviewed imaging with pt and [...] [address] ZUL[address] Alarcon PT documented in this encounterPaulding [facility] Hospital04-15-2025 NoteHNO ID: [id number] Author: BARRERA MEJIA PT Service: ? Author [...] and assessment of patient's response to intervention. Self-Custodial Management: 1: Reviewed imaging with pt and [...] 845 Session Stop Time : 928 ZUL[address] Alarcon, [facility]03-31-2025 NoteHNO ID: [id number] Author: BARRERA MEJIA PT Service: ? Author [...] Planned: 8 Planned Treatment Interventions: Therapeutic exercise (04882), Neuromuscular re-education (34288), Manual therapy (34951), Therapeutic activities (80738), Self-custodial management (60697), Patient/Family/Caregiver Education, Body Mechanics Training PLAN FOR [...] Provided: Yes, see tricia (more content not included)...[facility]03-31-2025 History of Present illness Narrative* Barrera Mejia, PT - 10/24/2024 10:43 AM EDT Episode Visit Count: 1 Therapist That Will [...] coping skills . The patient will benefit fromskilled therapy services to meet the goals established [...] Planned: 8 Planned Treatment Interventions: Therapeutic exercise (47643), Neuromuscular re- education (36577), Manual therapy (02642), Therapeutic activities (45607), Self- custodial management (41547), Patient/Family/Caregiver Education, Body Mechanics Training PLAN FOR [...] also relieve symptoms. MRI reveals canal and forminalstenosis Functional Limitations: sitting, walking in the community, [...] Time (minutes): 30 Session Start Time : 909 Session Stop Time : 939 Barrera Mejia PT * Barrera Mejia PT - 10/24/2024 9:38 AM EDT Program_ID:[id number] Access Code: [email or web address] URL: [email or web address] Date: 10-24-2024 Prepared By: Barrera Mejia Program [...] sets - 10 reps documented in this encounterPaulding County Hospital03-27-2025 NoteHNO ID: [id number] Author: CODY JULIAN, DO Service: ? 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 HPI: The patient is a 74-year-old female with a past medical history as outlined below. Protein electrophoresis was ordered to workup symptoms of peripheral neuropathy. EMG testing at [facility] suggested left and right peroneal neuropathy with [...] SULTANA with walking. 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 HPI: The patient is a 74-year-old female with a past medical history as outlined below. Protein electrophoresis was ordered to workup symptoms of peripheral neuropathy. EMG testing at [facility] suggested left and right peroneal neuropathy with [...] feet and the toes. Toes are very sensitiveat night when the sheet is on them. [...] 2 Puffs as instructed every 4 hours asneeded for wheezing/shortness of breath.^Disp: 3 Each^Rfl: 2 [...] No jaundice or rash. No petechiae. NEUROLOGIC: automatic print developer II-XII are grossly intact. No focal motor [...] which included preparing to see the patient, tzbs-jt-iffa patient care, completing clinical documentation, performing a medically appropriate examination, counseling and educating the patient/family/caregiver, communicating with other HCPs (not separately reported), and communicating results to the patient/family/caregiver. Cody Julian DO documented in this encounterPaulding County Hospital03-19-2025 History of Present illness Narrative* Melany Carrizales RT(R) - 10/12/2024 7:00 AM EDT Radiology Service Progress Note PATIENT NAME: Lupis Brito DATE OF SERVICE: October 12, 2024 TIME: 7:00 AM PATIENT IDENTITY VERIFICATION COMPLETED USING TWO (2) IDENTIFIERS: Name and Date of confirmedby patient verbally. FALL SCREENING: Has the patient had 2 falls in the last year or 1 fall with injury or currently using an Ambulatory Assistive Device (Walker, Cane, Wheelchair, Crutches, etc.)? No PATIENT GENDER DATA: Assigned female at . status: : No status:NO. PATIENT RELEVANT IMPLANT DATA REVIEWED: Yes PATIENT PRESENTS WITH AN IMPLANTABLE OR ATTACHED GUARD MUSEUM: No RADIOLOGY DEPARTMENT: MR; Exam(s) Completed: Spine: Lumbar spine PERIPHERAL IV DATA: Not applicable SIGNED BY: RT Judy(R) October 12, 2024 7:00 AM documented in this encounterPaulding County Hospital03-19-2025 NoteHNO ID: [id number] Author: MELANY CARRIZALES RT(R) Service: ? Author Type: Technologist Type: Progress [...] PATIENT PRESENTS WITH AN IMPLANTABLE OR ATTACHED GUARD MUSEUM: No RADIOLOGY DEPARTMENT: MR; Exam(s) Completed: Spine: Lumbar spine PERIPHERAL IV DATA: Not applicable SIGNED BY: Cherryfrank Carrizales, RT(R) October 12, 2024 7:00 [facility]03-18-2025 Telephone encounter Note* Telephone Encounter - Jenny Marquis RN - 10/11/2024 10:34 AM EDT Pt returning a call. 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 [facility]03-18-2025 Miscellaneous Notes* Telephone Encounter - Jenny Marquis RN - 10/11/2024 10:34 AM EDT Pt returning a call. 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 * Telephone Encounter - Julissa Brock OCCA - 10/07/2024 2:58 PM EDT TC to patient who verbalized understanding of providers message below. Patient is already scheduledwith PT and would like to move forward with imaging. Please contact patient and assist with scheduling Lumbar MRI. Thank you. PRABHU Jean-Baptiste * Telephone Encounter - Rody Pablo PA-C - 10/07/2024 8:56 AM EDT EMG of the lower extremity shows compression of the S1 nerve but no signs of peroneal neuropathy. Would recommend repeat imaging of the lumbar spine to look for worsening impingement, would also consider PT if patient is amenable as this can relieve some compression on the nerves. documented in this encounterPaulding County Hospital03-14-2025 Telephone encounter Note * Telephone Encounter - Julissa Brock OCCA - 10/07/2024 2:58 PM EDT TC to patient who verbalized understanding of providers message below. Patient is already scheduledwith PT and would like to move forward with imaging. Please contact patient and assist with scheduling Lumbar MRI. Thank you. PRABHU Jean-Baptiste [facility]03-14-2025 Telephone encounter Note* Telephone Encounter - Rody Pablo PA-C - 10/07/2024 8:56 AM EDT EMG of the lower extremity shows compression of the S1 nerve but no signs of peroneal neuropathy. Would recommend repeat imaging of the lumbar spine to look for worsening impingement, would also consider PT if patient is amenable as this can relieve some compression on the nerves. [facility]03-14-2025 NoteHNO ID: [id number] Author: NIEVES HUIZAR DO Service: ? Author [...] of Care Visit completed when applicable. JENNY Page, [facility]03-14-2025 History of Present illness Narrative* Nieves Huizar DO - 10/07/2024 8:09 AM EDT UNIVERSAL PROTOCOL / SAFETY CHECKLIST Procedure to [...] Plan of Care Visit completed when applicable. RYDER PageT Nieves Huizar DO documented in this encounterPaulding [facility] Hospital03-12-2025 NoteHNO ID: [id number] Author: ?, ?, ? Service: ? Author Type: LICENSED NURSE Type: Progress Notes Filed: 10/05/2024 14:22 Note Text: Patient presents for Prolia injection. Denies any problems at this time. Brought own medication. Patient instructed on any SE of medication, verbalized understanding and agreed to proceed with treatment. Tolerated injection well. [facility] History of Present illness Narrative* SUSANNE WEST - 10/05/2024 2:17 PM EDT Patient presents for Prolia injection. Denies any problems at this time. Brought own medication. Patient instructed on any SE of medication, verbalized understanding and agreed to proceed with treatment. Tolerated injection well. Susanne West LPN documented in this encounterPaulding County Hospital03-11-2025 NoteHNO ID: [id number] Author: CODY JULIAN DO Service: ? Author Type: Physician Type: Progress Notes Filed: 10/04/2024 15:55 Note Text: Patient referred by Rody Pablo PA-C for possible monoclonal gammopathy. HPI: The patient is a 74-year-old female with a past medical history as outlined below. Protein electrophoresis was ordered to workup symptoms of peripheral neuropathy. EMG testing at [facility] suggested left and right peroneal neuropathy with [...] or abdominal pain. No (more content not included)...[facility]03-11-2025 History of Present illness Narrative* Cody Julian - 10/04/2024 2:55 PM EDT Patient referred by Rody Pablo PA-C for possible monoclonal gammopathy. HPI: The patient is a 74-year-old female with a past medical history as outlined below. Protein electrophoresis was ordered to workup symptoms of peripheral neuropathy. EMG testing at [facility] suggested left and right peroneal neuropathy with [...] feet and the toes. Toes are very sensitiveat night when the sheet is on them. [...] 2 Puffs as instructed every 4 hours asneeded for wheezing/shortness of breath.^Disp: 3 Each^Rfl: 2 [...] No jaundice or rash. No petechiae. NEUROLOGIC: automatic print developer II-XII are grossly intact. No focal motor [...] which included preparing to see the patient, xbse-cy-tsey patient care, completing clinical documentation, obtaining and/or reviewing separately obtained history, performing a medically appropriate examination, counseling and educating the pat ient/family/caregiver, ordering medications, tests, or procedures, communicating with other HCPs (not separately reported), and communicating results to the patient/family/caregiver. Cody Julian DO documented in this encounterPaulding County Hospital03-03-2025 Telephone encounter Note * Telephone Encounter - Prosper Rodriguez LPN - 09/26/2024 8:15 AM EST Prescription Refill Information The patient has been [...] times a day for 180 days. Prosper Rdoriguez LPN September 26, 2024 8:16 AM [facility]03-03-2025 Miscellaneous Notes* Telephone Encounter - Prosper Rodriguez LPN - 09/26/2024 8:15 AM EST Prescription Refill Information The patient has been [...] 26, 2024 8:16 AM documented in this encounterPaulding County Hospital02-27-2025 Telephone encounter Note * Telephone Encounter - SUSANNE WEST - 09/22/2024 1:28 PM EST Patient scheduled for nurse visit 09/1224 to receive Prolia injection. Please place order at this time. Susanne West LPN [facility]02-27-2025 Miscellaneous Notes* Telephone Encounter - SUSANNE WEST - 09/22/2024 1:28 PM EST Patient scheduled for nurse visit 09/1224 to receive Prolia injection. Please place order at this time. Susanne West LPN documented in this encounterPaulding County Hospital02-24-2025 Telephone encounter Note * Telephone Encounter - Kim Charles LPN - 09/19/2024 4:50 PM EST Patient notified with results. Patient verbalizes understanding. Kim Charles LPN [address]24-2025 Miscellaneous Notes* Telephone Encounter - Kim Charles LPN - 09/19/2024 4:50 PM EST Patient notified with results. Patient verbalizes understanding. Kim Charles LPN * Telephone Encounter - Tacos Hein MD - 09/19/2024 4:31 PM EST Let patient know her bone strength study is stable from 3 years ago and slightly improved. documented in this encounterPaulding County Hospital02-24-2025 Telephone encounter Note * Telephone Encounter - Tacos Hein MD - 09/19/2024 4:31 PM EST Let patient know her bone strength study is stable from 3 years ago and slightly improved. [facility]02-24-20[facility] History of Present illness Narrative* Vida Vanessa RT(R) - 09/19/2024 1:40 PM EST Radiology Service Progress Note PATIENT NAME: Lupis Brito DATE OF SERVICE: September 19, 2024 TIME: 11:32 AM PATIENT IDENTITY VERIFICATION COMPLETED USING TWO (2) IDENTIFIERS: Name and Date of confirmedby patient verbally. FALL SCREENING: Has the patient had 2 falls in the last year or 1 fall with injury or currently using an Ambulatory Assistive Device (Walker, Cane, Wheelchair, Crutches, etc.)? No PATIENT GENDER DATA: Assigned female at . status: : No status:NO. PATIENT RELEVANT IMPLANT DATA REVIEWED: Not Applicable PATIENT PRESENTS WITH AN IMPLANTABLE OR ATTACHED GUARD MUSEUM: No RADIOLOGY DEPARTMENT: Bone Density PERIPHERAL IV DATA: Not applicable SIGNED BY: RT Inés(R) September 19, 2024 11:32 AM documented in this encounterPaulding County Hospital02-24-2025 NoteHNO ID: [id number] Author: VIDA VANESSA RT(Gonzalo) Service: ? Author [...] PATIENT PRESENTS WITH AN IMPLANTABLE OR ATTACHED GUARD MUSEUM: No RADIOLOGY DEPARTMENT: Bone Density PERIPHERAL IV DATA: Not applicable SIGNED BY: RT Inés(R) September 19, 2024 11:32 [facility]02-18-2025 Instructions* Patient Instructions* Rody Pablo PA-C - 09/13/2024 9:29 AM EST Laboratory studies Repeat EMG if labs are normal. Follow up as needed documented in this encounterPaulding County Hospital02-18-2025 NoteHNO ID: [id number] Author: SABA CRUZ LPN Service: ? Author Type: LICENSED NURSE Type: Progress Notes Filed: 09/13/2024 09:52 Note Text:[facility]02-18-2025 History of Present illness Narrative* Saba Cruz LPN - 09/13/2024 8:54 AM EST * Rody Pablo PA-C - 09/13/2024 8:52 AM EST Images from the original note were not included. [facility] Name: Lupis Brito Age: [...] later started on the right. Notes constant atae-bjs-jhhvqhj cammy dull ache to the toes on the bottom which occasionally radiates to the heel but does not go to the top of the foot, ankle or up the leg. Has chronic lumbar issues for which she sees pain managementfor. Had an EMG done at [facility], but does not show any readings, describes a bilateral peroneal neuropathy, patient states occasionally she crosses her legs but nothing consistent.No surgeries to the lower legs, did have 1 lumbar surgery in the past. History is more suggestive of a possible polyneuropathy, stocking glove, does not really have any deficits in the peroneal distribution on the legs bilaterally. Discussed the close of the lumbar and etiology. Does take B complexand has done so for years, discussed obtaining further laboratory studies, previous B12, TSH were normal. Patient is amenable to this, discussed repeating the EMG and she would like to first completelaboratory studies. No falls, trips, signs or symptoms of cord compression. Notes her discomfort iswell-controlled with gabapentin. Patient agreeable to treatment plan [...] the feet. Patient reports about a year agoshe began experiencing some numbness starting on the left foot to the toes and bottom of the foot. Few months later she started experiencing similar symptoms to the left foot. Typically the symptoms are constant to the toes but occasionally will radiate to the entire bottom of the foot to the heel.Does not go to the top of the [...] feet as a dull ache with occasional karr-eyu-zfgzgzf that is worse at nighttime. No symptoms [...] 2 Puffs as instructed every 4 hours asneeded for wheezing/shortness of breath. MELATONIN ORAL Take [...] Skin Biopsy: This note was dictated using TapTap speech recognition software and may contain some errors that were a result of the program not accurately transcribing what was dictated, despite efforts to make corrections. Note that unless urgent, test and MRI results will be discussed at next follow- up visit. PROMIS (Patient-Reported Outcomes Measurement Information System) [...] which included preparing to see the patient, ecbd-ah-rgod patient care, completing clinical documentation, obtaining and/or reviewing separately obtained history, performing a medically appropriate examination, counseling and educating the pat ient/family/caregiver, and ordering medications, tests, or procedures. documented in this encounterPaulding County Hospital02-18-2025 NoteHNO ID: [id number] Author: RODY PABLO PA-C Service: ? Author Type: Physician Vulnerability Assessment Analyst Type: Progress Notes Filed: 09/13/2024 09:52 Note Text: [facility] Name: Lupis Brito Age: [...] later started on the right. Notes constant amaz-wal-rzctxwi and a dull ache to the toes on the bottom which occasionally radiates to the heel but does not go to the top of the foot, ankle or up the leg. Has chronic lumbar issues for which she sees pain management for. Had an EMG done at [facility], but does not show any readings, describes [...] feet as a dull ache with occasional orzz-dbn-pkhtktx that is worse at nighttime. No symptoms [...] Medicare Annual Wellness Visi (more content not included)...[facility]2025 Telephone encounter Note* Telephone Encounter - Kyara Gao RN - 09/01/2024 5:18 PM EST Pt called and is notified of providers results and instructions. Pt voices understanding. Pt statesshe will call back in tomorrow to set up appointment. Kyara Gao RN [facility]2025 Miscellaneous Notes* Telephone Encounter - Kyara Gao RN - 09/01/2024 5:18 PM EST Pt called and is notified of providers results and instructions. Pt voices understanding. Pt statesshe will call back in tomorrow to set up appointment. 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 I have placed a referral to see Neuromuscular. * Telephone Encounter - Prosper Rodriguez LPN - 09/01/2024 7:05 AM EST Received EMG/NCS report from [facility] ordered by PCP. 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 I have placed a referral to see Neuromuscular. [facility]2025 Telephone encounter Note* Telephone Encounter - Prosper Rodriguez LPN - 09/01/2024 7:05 AM EST Received EMG/NCS report from [facility] ordered by PCP. Prosper Rodriguez LPN Scan on 09/01/2024 2:36 AM by ProviderAnn PA-C: Neurology [facility]01-27-2025 Telephone encounter Note* Telephone Encounter - Jeannie Pool MA - 08/22/2024 3:27 PM EST Re-faxed to [facility]. Jeannie Pool MA [facility]01-27-2025 Miscellaneous Notes* Telephone Encounter - Jeannie Pool MA - 08/22/2024 3:27 PM EST Re-faxed to [facility]. Jeannie Pool MA * Telephone Encounter - Leann Leahy LPN - 08/22/2024 11:52 AM EST Last OV: 08/16/24 Pt is calling to report to pcp nurse that she did not get a call from the hospital to schedule nerve conduction study test. Did not see an order for this in pt's chart. Please review and advise. Leann Leahy LPN documented in this encounterPaulding County Hospital01-27-2025 Telephone encounter Note * Telephone Encounter - Leann Leahy LPN - 08/22/2024 11:52 AM EST Last OV: 08/16/24 Pt is calling to report to pcp nurse that she did not get a call from the hospital to schedule nerve conduction study test. Did not see an order for this in pt's chart. Please review and advise. Leann Leahy LPN [facility]01-27-2025 Telephone encounter Note* Telephone Encounter - Jeannie Pool MA - 08/22/2024 9:17 AM EST Prescription Refill Information The patient has been [...] Pool MA August 22, 2024 9:17 AM [facility]01-27-2025 Miscellaneous Notes* Telephone Encounter - Jeannie Pool MA - 08/22/2024 9:17 AM EST Prescription Refill Information The patient has been [...] 22, 2024 9:17 AM documented in this encounterPaulding County Hospital01-22-2025 Telephone encounter Note * Telephone Encounter - Prosper Rodriguez LPN - 08/17/2024 9:59 AM EST Pt notified of same. Prosper Rodriguez LPN [facility]01-22-2025 Miscellaneous Notes* Telephone Encounter - Prosper Rodriguez LPN - 08/17/2024 9:59 AM EST Pt notified of same. Prosper Rodriguez LPN * Telephone Encounter - Tacos Hein MD - 08/17/2024 9:51 AM EST Let patient know her labs from yesterday were ok. documented in this encounterPaulding County Hospital01-22-2025 Telephone encounter Note * Telephone Encounter - Tacos Hein MD - 08/17/2024 9:51 AM EST Let patient know her labs from yesterday were ok. [facility]01-21-2025 Instructions* Patient Instructions* Tacos Hein MD - 08/16/2024 11:26 AM EST Consider getting the RSV vaccine from a local pharmacy. Please bring in copies of your power of sports attorney for health care and living will. Please get lab done on or after 02/03/2025 prior to your next visit. Screening schedule The following prevention plan is recommended: Depression Screening Never done Anxiety Screening Never done RSV Vaccine(1 - Risk 60-74 years 1-dose series) Never done Bone Density Screening due on 03/10/2024 Covid-19 Vaccine( season) due on 03/27/2024 Advance Directive Discussion [...] review all the medicines you take, even qacs-avr-ymmlfqv medicines. As you get older, the way medicines work in your body can change. Some medicines, or combinations of medicines, can make you sleepy or dizzy andcan cause you to fall. 3. Have your [...] have certain medical conditions. documented in this encounterPaulding County Hospital01-21-2025 History of Present illness Narrative* Tacos Hein MD - 08/16/2024 10:40 AM EST Images from the original note were not [...] PCP - General (Family Medicine) Tess Navarrete APRN.JOHANNA as Senior Microstrategy Developer (Family Medicine) Madison Mariee PA-C as Senior Microstrategy Developer (Family Medicine) Dr. Sage: Pulm Medical/Family history [...] HLP, inflammatory arthritis, RLS, insomnia, fibro, osteoporosis, chronicback pains and those as reviewed below. Patient [...] 2 Puffs as instructed every 4 hours asneeded for wheezing/shortness of breath. MELATONIN ORAL Take [...] symmetric. Sensation to light touch and crainal nerves2-12 intact.. Health Maintenance List Depression Screening Never [...] Abs Lymph 1.00 - 4.00 k/uL 2.12 Mcdonough% % 9.7 Abs Mcdonough <0.87 k/uL 0.76 Eosin% % 3.6 Abs Eosin <0.46 k/uL 0.28 Baso% % 1.3 Abs Baso <0.11 k/uL 0.10 Immature Gran % % 0.4 IMMATURE GRANS (ABS) <0.10 k/uL 0.03 NRBC /100 WBC 0.0 Absolute nRBC <0.01 k/uL <0.01 DTYPE Auto Color Yellow Dark Yellow ! Clarity Clear Clear Glucose, Urine Negative Negative Bilirubin, Urine Negative Negative Ketones, Urine Negative Negative Specific [place], Ur 1.005 - 1.030 1.025 Hemoglobin/Blood,Ur Negative [...] ICD10: M81.0 check - DXA-AXIAL SKELETON - BD DXA TRABECULAR BONE SCORE (TBS) 10. Numbness and tingling of both feet - ICD9: 782.0, ICD10: R20.0, R20.2 Check - VITAMIN B12 - THYROID STIMULATING HORMONE - FOLATE, SERUM - T4 FREE/FREE THYROXINE - NCS/EMG at [facility] 11. Encounter for screening examination for other mental health and behavioral disorders - ICD9: V79.8, ICD10: Z13.39 - ANXIETY SCREENING 12. Screening for depression - ICD9: V79.0, ICD10: Z13.31 - DEPRESSION SCREENING F/u in 6 months routine check Lipids. I spent a total of 40 minutes on the date of the service which included preparing to see the patient, gypa-nf-gvvx patient care, completing clinical documentation, performing a medically appropriate examination, counseling and educating the patient/family/caregiver and ordering medications, tests, or procedures. Tacos Hein MD documented in this encounterPaulding County Hospital01-21-2025 NoteHNO ID: [id number] Author: TACOS HEIN MD Service: ? Author [...] General (Family Medicine) Tess Navarrete APRN.CNP as Senior Microstrategy Developer (Family Medicine) Madison Mariee PA-C as Senior Microstrategy Developer (Family Medicine) Dr. Sage: Pulm Medical/Family history [...] File Prior to Visit (more content not included)...[facility]12-05-2024 History of Present illness Narrative* Alona Cruz MD - 06/30/2024 10:00 AM EST Images from the original note were not included. . Respiratory Tendoy Note Patient name: Lupis Brito PCP: Tacos Hein MD CC: Asthma HPI: Lupis Brito 74 year old female never smoker with PMH significant for asthma (positive JEREMIAH),allergic rhinitis, fibromyalgia, osteoporosis presenting for follow-up. Current therapy with Arnuity and as needed albuterol. From a respiratory standpoint she has been doing well. No cough, wheezing, chest pain or shortness of breath. 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 She had previously been on Qvar with good control of her symptoms and no significantvocal issues but insurance deemed change. No thrush [...] 2 Puffs as instructed every 4 hours asneeded for wheezing/shortness of breath. MELATONIN ORAL Take [...] thrush -See #1 Alona Cruz MD Respiratory Tendoy documented in this encounterPaulding County Hospital12-05-2024 NoteHNO ID: [id number] Author: ALONA CRUZ MD Service: ? Author Type: Physician Type: Progress Notes Filed: 06/30/2024 12:43 Note Text: . Respiratory Tendoy Note Patient name: Lupis Brito PCP: Tacos [...] significant dysphonia unable to sing in her yazidi choir. She had previously been on Qvar [...] no masses, lesions, tendernes (more content not included)...[facility]12-03-2024 Telephone encounter Note* Telephone Encounter - Maryana Godinez LPN - 06/28/2024 9:28 AM EST Prescription Refill Information The patient has been [...] Godinez LPN June 28, 2024 9:28 AM [facility]12-03-2024 Miscellaneous Notes* Telephone Encounter - Maryana Godinez LPN - 06/28/2024 9:28 AM EST Prescription Refill Information The patient has been [...] 28, 2024 9:28 AM documented in this encounterPaulding County Hospital12-03-2024 Telephone encounter Note * Telephone Encounter - Maryana Godinez LPN - 06/28/2024 9:27 AM EST Prescription Refill Information The patient has been [...] Godinez LPN June 28, 2024 9:27 AM [facility]12-03-2024 Miscellaneous Notes* Telephone Encounter - Maryana Godinez LPN - 06/28/2024 9:27 AM EST Prescription Refill Information The patient has been [...] 28, 2024 9:27 AM documented in this encounterPaulding County Hospital11-11-2024 Telephone encounter Note * Telephone Encounter - Cassia Santos LPN - 06/06/2024 9:37 AM EST [facility] 12/01/23 Patient phones requesting refills as follows: Requested Prescriptions Pending Prescriptions Disp Refills fluticasone furoate (ARNUITY ELLIPTA) 100 mcg/actuation inhaler 30 Each 5 Sig: Inhale 1 Puff as instructed once daily. Please review and advise. Cassia Santos LPN [facility]11-11-2024 Miscellaneous Notes* Telephone Encounter - Cassia Santos LPN - 06/06/2024 9:37 AM EST [facility] 12/01/23 Patient phones requesting refills as follows: Requested Prescriptions Pending Prescriptions Disp Refills fluticasone furoate (ARNUITY ELLIPTA) 100 mcg/actuation inhaler 30 Each 5 Sig: Inhale 1 Puff as instructed once daily. Please review and advise. Cassia Santos LPN documented in this encounterPaulding County Hospital10-16-2024 Telephone encounter Note * Telephone Encounter - Prosper Rodriguez LPN - 05/11/2024 12:01 PM EDT Prescription Refill Information The patient has been [...] Rodriguez LPN May 11, 2024 12:01 PM [facility]10-16-2024 Miscellaneous Notes* Telephone Encounter - Prosper Rodriguez LPN - 05/11/2024 12:01 PM EDT Prescription Refill Information The patient has been [...] 11, 2024 12:01 PM documented in this encounterPaulding County Hospital09-11-2024 NoteHNO ID: [id number] Author: SUSANNE WEST LPN Service: ? Author Type: LICENSED NURSE Type: Progress Notes Filed: 04/06/2024 09:20 Note Text: Patient presents for Prolia injection. Denies any problems at this time. Brought own medication. Patient instructed on any SE of medication, verbalized understanding and agreed to proceed with treatment. Tolerated injection well. [facility] History of Present illness Narrative* Susanne West LPN - 04/06/2024 9:08 AM EDT Patient presents for Prolia injection. Denies any problems at this time. Brought own medication. Patient instructed on any SE of medication, verbalized understanding and agreed to proceed with treatment. Tolerated injection well. Susanne West LPN documented in this encounterPaulding County Hospital09-09-2024 Telephone encounter Note * Telephone Encounter - Cassia Santos LPN - 04/04/2024 9:52 AM EDT Patient phones requesting refills as follows: ASIM: 12/01/23 Requested Prescriptions Pending Prescriptions Disp Refills fluticasone furoate (ARNUITY ELLIPTA) 100 mcg/actuation inhaler 30 Each 5 Sig: Inhale 1 Puff as instructed once daily. Please review and advise. Cassia Santos LPN [facility]09-09-2024 Miscellaneous Notes* Telephone Encounter - Cassia Santos LPN - 04/04/2024 9:52 AM EDT Patient phones requesting refills as follows: ASIM: 12/01/23 Requested Prescriptions Pending Prescriptions Disp Refills fluticasone furoate (ARNUITY ELLIPTA) 100 mcg/actuation inhaler 30 Each 5 Sig: Inhale 1 Puff as instructed once daily. Please review and advise. Cassia Santos LPN documented in this encounterPaulding County Hospital09-09-2024 Telephone encounter Note * Telephone Encounter - Jeannie Pool MA - 04/04/2024 8:53 AM EDT Prescription was sent to pharmacy on 02/08/2024 180 tablets with 1 additional refill. Jeannie Pool MA [facility]09-09-2024 Miscellaneous Notes* Telephone Encounter - Jeannie Pool MA - 04/04/2024 8:53 AM EDT Prescription was sent to pharmacy on 02/08/2024 180 tablets with 1 additional refill. Jeannie Pool MA documented in this encounterPaulding County Hospital08-14-2024 Telephone encounter Note * Telephone Encounter - Bryan Faustin LPN - 03/09/2024 10:54 AM EDT Prescription Refill Information The patient has been [...] refills. Pt is not due for refill. message to pt notifying of the same. Bryan Faustin LPN March 09, 2024 10:55 AM [facility]08-14-2024 Miscellaneous Notes* Telephone Encounter - Bryan Faustin LPN - 03/09/2024 10:54 AM EDT Prescription Refill Information The patient has been [...] refills. Pt is not due for refill. message to pt notifying of the same. Bryan Faustin LPN March 09, 2024 10:55 AM documented in this encounterPaulding County Hospital08-12-2024 Telephone encounter Note * Telephone Encounter - Jeannie Pool MA - 03/07/2024 9:51 AM EDT Prescription Refill Information The patient has been [...] Pool MA March 07, 2024 9:51 AM [facility]08-12-2024 Miscellaneous Notes* Telephone Encounter - Jeannie Pool MA - 03/07/2024 9:51 AM EDT Prescription Refill Information The patient has been [...] 07, 2024 9:51 AM documented in this encounterPaulding County Hospital08-12-2024 Telephone encounter Note * Telephone Encounter - Cassia Santos LPN - 03/07/2024 8:40 AM EDT [facility] 12/01/23 Patient phones requesting refills as follows: Requested Prescriptions Pending Prescriptions Disp Refills fluticasone furoate (ARNUITY ELLIPTA) 100 mcg/actuation inhaler 30 Each 5 Sig: Inhale 1 Puff as instructed once daily. Please review and advise. Cassia Santos LPN [facility]08-12-2024 Miscellaneous Notes* Telephone Encounter - Cassia Santos LPN - 03/07/2024 8:40 AM EDT ASIM 12/01/23 Patient phones requesting refills as follows: Requested Prescriptions Pending Prescriptions Disp Refills fluticasone furoate (ARNUITY ELLIPTA) 100 mcg/actuation inhaler 30 Each 5 Sig: Inhale 1 Puff as instructed once daily. Please review and advise. Cassia Santos LPN documented in this encounterPaulding [facility]07-24-[facility]24 Telephone encounter Note * Telephone Encounter - Jeannie Pool MA - 02/17/2024 8:18 AM EDT Sent Cholesterol guidelines. Jeannie Pool MA [facility]07-24-2024 Miscellaneous Notes* Telephone Encounter - Jeannie Pool MA - 02/17/2024 8:18 AM EDT Sent Cholesterol guidelines. Jeannie oPol MA documented in this encounterPaulding County Hospital07-24-2024 Telephone encounter Note * Telephone Encounter - Jeannie Pool MA - 02/17/2024 8:16 AM EDT Patient notified and results. She works out 5 days a week. No sure what foods would be good or not good. Mailed cholesterol food guideline. She would like to go that route first. Jeannie Pool MA [facility]07-24-2024 Miscellaneous Notes* Telephone Encounter - Jeannie Pool MA - 02/17/2024 8:16 AM EDT Patient notified and results. She works out 5 days a week. No sure what foods would be good or not good. Mailed cholesterol food guideline. She would like to go that route first. Jeannie Pool MA * Telephone Encounter - Tacos Hein MD - 02/17/2024 1:17 AM EDT Let patient know her lipid panel showed Trigs ok at 143, HDL very good ay 83 and LDL elevated at 152 (goal<130). Her 10 year risk for a heart attack or stroke is only 9%. However is interested we can start a lipid lowering medication to reduce this. Otherwise working on less fat/chol in the dietcan help along with moderate exercise. Her other labs were ok. documented in this encounterPaulding [facility] Hospital07-24-2024 Telephone encounter Note * Telephone Encounter - Tacos Hein MD - 02/17/2024 1:17 AM EDT Let patient know her lipid panel showed Trigs ok at 143, HDL very good ay 83 and LDL elevated at 152 (goal<130). Her 10 year risk for a heart attack or stroke is only 9%. However is interested we can start a lipid lowering medication to reduce this. Otherwise working on less fat/chol in the dietcan help along with moderate exercise. Her other labs were ok. [facility]07-19-2024 Instructions* Patient Instructions* Tacos Hein MD - 02/12/2024 2:42 PM EDT Please get labs and urine test done on or after 08/05/2024 prior to your next visit. documented in this encounterPaulding County Hospital07-19-2024 History of Present illness Narrative* Tacos Hein MD - 02/12/2024 2:00 PM EDT Chief Complaint Patient presents with: Hospital Follow Up HPI Lupis Brito is a 74 year old female who presents here today for Hospital Discharge Follow up.. Patient was admitted to [facility] on on for chest tightness, nausea and Palpitations. There was concern for accelerated Idioventricular junctional rhythm. Overnight monitor showed sinus rhythm and regular. Echocardiogram showed normal ejection fraction. The tachycardia rhythm was considered a side effect of the doxycycline. 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 Since discharge she has not had any plpations and her watch has not warned her of any. No shortnessof breath or chest pain. No leg swelling. [...] 2 Puffs as instructed every 4 hours asneeded for wheezing/shortness of breath. MELATONIN ORAL Take [...] Discontinued Data reviewed Hospital admission papers from [facility]. A/P ASSESSMENT/PLAN: 1. Accelerated atrioventricular junctional rhythm [...] months. Tacos Hein MD documented in this encounterPaulding County Hospital07-19-2024 NoteHNO ID: [id number] Author: TACOS HEIN MD Service: ? Author Type: Physician Type: Progress Notes Filed: 02/21/2024 13:33 Note Text: Chief Complaint Patient presents with: Hospital Follow Up HPI Lupis Brito is a 74 year old female who presents here today for Hospital Discharge Follow up.. Patient was admitted to [facility] on on for chest tightness, nausea and Palpitations. There was concern for accelerated Idioventricular junctional rhythm. Overnight monitor showed sinus rhythm and regular. Echocardiogram showed normal ejection fraction. The tachycardia rhythm was considered a side effect of the doxycycline. 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 Since discharge she [...] bruits. Lungs: Lungs clear (more content not included)...[facility] 02-08-2024 Telephone encounter Note* Telephone Encounter - Maryana Godinez LPN - 02/08/2024 1:44 PM EDT Prescription Refill Information The patient has been [...] Godinez LPN February 08, 2024 1:45 PM [facility]07-15-2024 Miscellaneous Notes* Telephone Encounter - Maryana Godinez LPN - 02/08/2024 1:44 PM EDT Prescription Refill Information The patient has been [...] Godinez LPN February 08, 2024 1:45 PM documented in this encounterPaulding County Hospital07-15-2024 Telephone encounter Note * Telephone Encounter - Cassia Santos LPN - 02/08/2024 1:26 PM EDT ASIM 12/01/23 Patient phones requesting refills as follows: Requested Prescriptions Pending Prescriptions Disp Refills fluticasone furoate (ARNUITY ELLIPTA) 100 mcg/actuation inhaler 1 Each 5 Sig: Inhale 1 Puff as instructed once daily. Please review and advise. Cassia Santos LPN [facility]07-15-2024 Miscellaneous Notes* Telephone Encounter - Cassia Santos LPN - 02/08/2024 1:26 PM EDT ASIM 12/01/23 Patient phones requesting refills as follows: Requested Prescriptions Pending Prescriptions Disp Refills fluticasone furoate (ARNUITY ELLIPTA) 100 mcg/actuation inhaler 1 Each 5 Sig: Inhale 1 Puff as instructed once daily. Please review and advise. Cassia Santos LPN documented in this encounterPaulding County Hospital07-05-2024 [facility] Medical Records Department [address] [place] [id number] Discharge Summary 01/29/24 1523 MR#: [id number] Acct: [id number] Name: LUPIS BRITO Rep #: [id number] : 1950 73 From: Inez Moya MD PCP: Dr. Tacos Hein MD Status:ADM TIAGO Location: [place] [address] Providers Date of Admission: 01/29/24 Date of [...] mg/mL subcutaneous syringe (Prolia) 60 mg subcut .t3jpiid 01/28/24 fluticasone furoate 100 mcg/actuation blister powder [...] medication, patient will follow-up with her outpatient corporate real estate manager regarding change of medications. #Troponin increase: -No [...] % (Auto) 48.1, Lymph % (Auto) 38.1, Mcdonough % (Auto) 9.8, Eos % (Auto) 3.1, Baso % (Auto) 0.8, Absolute Neuts (auto) 3.5, Absolute Lymphs (auto) 2.79, Nucleated RBC % 0, Sodium 140, Potassium 4.1, Chloride (more content not included)...[facility]05-17-2024 Telephone encounter Note* Telephone Encounter - Tacos Hein MD - 12/11/2023 4:08 PM EDT The following approved medication requests have been transmitted electronically. Requested Prescriptions Signed Prescriptions Disp Refills meloxicam (MOBIC) 7.5 mg tablet 90 tablet 0 Sig: Take 1 tablet by mouth once daily. Tacos Hein MD [facility]05-17-2024 Miscellaneous Notes* Telephone Encounter - Tacos Hein MD - 12/11/2023 4:08 PM EDT The following approved medication requests have been transmitted electronically. Requested Prescriptions Signed Prescriptions Disp Refills meloxicam (MOBIC) 7.5 mg tablet 90 tablet 0 Sig: Take 1 tablet by mouth once daily. Tacos Hein MD * Telephone Encounter - Jeannie Pool MA - 12/11/2023 3:47 PM EDT Prescription Refill Information The patient has been [...] 11, 2023 3:48 PM documented in this encounterPaulding County Hospital05-17-2024 Telephone encounter Note * Telephone Encounter - Jeannie Pool MA - 12/11/2023 3:47 PM EDT Prescription Refill Information The patient has been [...] Pool MA December 11, 2023 3:48 PM [facility]05-07-2024 History of Present illness Narrative* Alona Cruz MD - 12/01/2023 10:00 AM EDT Images from the original note were not included. . Respiratory Tendoy Note Patient name: Lupis Brito PCP: Tacos Hein MD CC: Follow-up asthma HPI: Lupis Brito 73 year old female never smoker with PMH significant for asthma, rhinitis, fibromyalgia, osteoporosis. Asthma diagnosed by positive JEREMIAH. At [facility], having issues with breathing through her nose, [...] 2 Puffs as instructed every 4 hours asneeded for wheezing/shortness of breath.^Disp: 3 Each^Rfl: 2 [...] needed OTC antihistamines Alona Cruz MD [facility] documented in this encounterPaulding County Hospital04-24-2024 Telephone encounter Note * Telephone Encounter - Erika Toledo RN - 11/18/2023 2:27 PM EDT Called and spoke with the patient. She states that she is going to reach out to her insurance regarding the Singulair for their preferred alternative. Patient states that she has been out of her inhaler for about a month and asking for a script for the Arnuity be sent. Erika Toledo RN [facility]04-24-2024 Miscellaneous Notes* Telephone Encounter - Erika Toledo RN - 11/18/2023 2:27 PM EDT Called and spoke with the patient. She states that she is going to reach out to her insurance regarding the Singulair for their preferred alternative. Patient states that she has been out of her inhaler for about a month and asking for a script for the Arnuity be sent. Erika Toledo RN documented in this encounterPaulding County Hospital04-04-2024 Miscellaneous Notes* Telephone Encounter - Alona Wolf MA - 10/29/2023 8:30 AM EDT Patient has been identified by name and [...] you. Alona Wolf MA. documented in this encounterPaulding County Hospital03-19-2024 History of Present illness Narrative* Nadia Reddy APRN.JOHANNA - 10/13/2023 9:41 AM EDT This note was created using [employer] Medical Management[employer]. Subjective Lupis Brito is a 73 year [...] history is provided by the patient. No speech language pathologist assistant was used. Eye Problem This is a [...] to 4 weeks ago. The problem occurs constantly.The problem has been gradually worsening. Associated symptoms [...] 2 Puffs as instructed every 4 hours asneeded for wheezing/shortness of breath.^Disp: 3 Each^Rfl: 2 [...] if symptoms persist or worsen. Nadia Reddy APRN.ELL TUTOR documented in this encounterPaulding County Hospital02-23-2024 History of Present illness Narrative* Susanne West LPN - 09/18/2023 1:13 PM EST Patient presents for Prolia injection. Denies any problems at this time. Brought own medication. Patient instructed on any SE of medication, verbalized understanding and agreed to proceed with treatment. Tolerated injection well. Susanne West LPN documented in this encounterPaulding County Hospital02-14-2024 Miscellaneous Notes* Telephone Encounter - Susanne West LPN - 09/09/2023 10:40 AM EST Patient scheduled for nurse visit 09/18/23 to receive Prolia injection. Please place administration order at this time. Susanne West LPN documented in this encounterPaulding County Hospital02-13-2024 Miscellaneous Notes* Telephone Encounter - Leann Leahy LPN - 09/08/2023 2:36 PM EST Pharmacist with [facility] calls to make sure office is aware that pt is having Prolia sent to her home and then bringing it into office to be administered by nurse. Per pt's MC message pt has advised office of this. Leann Leahy LPN documented in this encounterPaulding County Hospital11-01-2023 History of Present illness Narrative* Marilou Rich PA-C - 05/27/2023 10:00 AM EDT Images from the original note were not [...] 2 Puffs as instructed every 4 hours asneeded for wheezing/shortness of breath. fluticasone (FLONASE) 50 [...] above and updated in EMR. IMMUNIZATIONS Prevnar - 01/2019 Pneumovax - 07/2021 Influenza - 05/27/2023 [...] DATE OF EXAM: Feb 17 2023 10:34AM [facility] 0488 - CT SINUS WO IVCON / IMPRESSION: Clear paranasal sinuses. No acute process. DATE OF EXAM: Sep 04 2014 9:00AM [facility] 0347 - CT CHEST W CONTRAST / Findings: CT CHEST FINDINGS: There is some parenchymal scarring or atelectasis in the lingula and in the RIGHT middle lobe whichmay account for the density noted on previous [...] minutes prior to activities associated with shortness ofbreath, and as needed for rescue relief of [...] necessary. Marilou Rich PA-C documented in this encounterPaulding County Hospital09-19-2023 Miscellaneous Notes* Telephone Encounter - TomMargoCassiamery MAYER - 04/14/2023 11:11 AM EDT Flovent non formulary on patient's insurance. Requesting Asmanex Twisthaler, Asmanex HFA, or Qvar Redihaler. Cassia Santos LPN documented in this encounterPaulding County Hospital09-18-2023 History of Present illness Narrative* Alona Cruz MD - 04/13/2023 8:45 AM EDT Images from the original note were not included. . Respiratory Tendoy Note Patient name: Lupis Brito PCP: Tacos [...] whistling noise through her nose and difficulty breathingat night. Symptoms have been occurring over the last several months. Albuterol does help with her shortness of breath but is not long-lasting. She has noted poor vocal quality and phonation especially when trying to sing at [employer]. She has raspy voice and difficulty speaking [...] any allergy symptoms at this time. No significantcough, activity limiting shortness of breath, audible wheezing. [...] 2.50 Monocytes % % 8.1 6.3 Abs Mcdonough <0.87 k/uL 0.50 0.45 Eosinophils % % 2.4 2.6 Abs Eosin <0.46 k/uL 0.15 0.19 Basophils % % 1.0 1.1 Abs Baso <0.11 k/uL 0.06 0.08 Immature Granulocytes % % 0.2 Abs Immature Gran <0.10 k/uL <0.03 NRBC /100 WBC 0.0 Absolute nRBC <0.01 k/uL <0.01 <0.01 Diff Type Auto Imaging / Diagnostic Studies: DATE OF EXAM: Feb 17 2023 10:34AM [facility] 0488 - CT SINUS WO IVCON / IMPRESSION: Clear paranasal sinuses. No acute process. DATE OF EXAM: Sep 04 2014 9:00AM [facility] 0347 - CT CHEST W CONTRAST / Findings: CT CHEST FINDINGS: There is some parenchymal scarring or atelectasis in the lingula and in the RIGHT middle lobe whichmay account for the density noted on previous [...] 2 Puffs as instructed every 4 hours asneeded for wheezing/shortness of breath. Social History Tobacco [...] antihistamines for now Alona Cruz MD [facility] documented in this encounterPaulding County Hospital08-24-2023 Miscellaneous Notes* Telephone Encounter - Tacos Hein MD - 03/19/2023 11:23 AM EDT The following approved medication requests have been [...] 6 months. Authorizing Provider: TACOS HEIN MD * Telephone Encounter - Prosper Rodriguez LPN - 03/19/2023 11:13 AM EDT Spoke with pt. She would like rx for Prolia to go to [facility]. Prosper Rodriguez LPN * Telephone Encounter - Tacos Hein MD - 03/19/2023 10:52 AM EDT Find out from patient if she wants the Prol[facility]? * Telephone Encounter - Prosper Rodriguez LPN - 03/19/2023 8:09 AM EDT Pt is requesting to have refills sent to [facility]. Last refills went to [facility]. [facility] 02/12/23 NOV 08/27/23 Prosper Rodriguez LPN documented in this encounterPaulding County Hospital08-24-2023 Miscellaneous Notes* Telephone Encounter - Prosper Rodriguez LPN - 03/19/2023 8:14 AM EDT This is being addressed in another encounter. Prosper Rodriguez LPN documented in this encounterPaulding County Hospital07-29-2023 History of Present illness Narrative* Josephine Iniguez PA-C - 02/21/2023 2:07 PM EDT Images from the original note were not included. This note was created using [employer]. Subjective Lupis Brito is a 73 year [...] a CT scan for chronic sinusitis and right- sided sinus pain which showed periapical lucency around the maxillary molar. No other rash anywhere else. Notrouble breathing or wheezing. No swelling of her [...] 2 sprays into each nostril once daily 48g 11 meloxicam (MOBIC) 7.5 mg tablet Take 1 tablet by mouth once daily. 90 tablet 1 gabapentin (NEURONTIN) 300 mg capsule Take 1 capsule by mouth twice daily for 180 days. 180 capsule1 montelukast (SINGULAIR) 10 mg tablet Take 1 tablet by mouth daily at bedtime. 90 tablet 1 denosumab (PROLIA) 60 mg/mL 1 milliliter subcutaneously every 6 months. 1 mL 1 MELATONIN ORAL Take by mouth as directed. albuterol HFA (VENTOLIN HFA) 90 mcg/actuation inhaler Inhale 2 Puffs as instructed every 4 hours asneeded for Wheezing/Shortness of Breath. 1 Inhaler 5 [...] of anaphylaxis. I did add this to herlist of allergies. I did review the CT scan of her sinuses which did show the periapical lucency onthe right maxillary molar so I will start her on keflex. She has been on cephalosporins previously.Recommended dental follow-up. Also did discuss she has multiple antibiotic class allergies, may benefit from follow-up with allergy to have penicillin testing to see if she is truly allergic. She wasnot sure what had happened when she took a penicillin and had been so many years. Discussed red flags to be seen in the emergency department. Patient agreeable with plan. Josephine Iniguez PA-C documented in this encounterPaulding County Hospital07-25-2023 History of Present illness Narrative* Kira Villasenor RT(R) - 02/17/2023 10:20 AM EDT Radiology Service Progress Note PATIENT NAME: Lupis Brito DATE OF SERVICE: February 17, 2023 TIME: 1:55 PM PATIENT IDENTITY VERIFICATION COMPLETED USING TWO (2) IDENTIFIERS: Name and Date of confirmedby patient verbally. FALL SCREENING: Has the patient [...] 17, 2023 1:55 PM documented in this encounterPaulding County Hospital07-06-2023 History of Present illness Narrative* Jeannie Pool MA - 01/29/2023 3:34 PM EDT Scan on 01/21/2023 8:22 AM by External Provider, PHUONG: Consultation - PT/OT/Speech Jeannie Pool MA documented in this encounterPaulding County Hospital07-06-2023 History of Present illness Narrative* Susanne West LPN - 01/29/2023 10:05 AM EDT Patient presents for Prolia injection. Denies any problems at this time. Brought own medication. Patient instructed on any SE of medication, verbalized understanding and agreed to proceed with treatment. Tolerated injection well. Susanne West LPN documented in this encounterPaulding County Hospital06-07-2023 History of Present illness Narrative* Nadia Reddy APRN.ELL TUTOR - 12/31/2022 1:47 PM EDT This note was created using NoteWriter. Subjective [...] history is provided by the patient. No speech language pathologist assistant was used. Cough This is a new [...] 2 Puffs as instructed every 4 hours asneeded for Wheezing/Shortness of Breath.^Disp: 1 Inhaler^Rfl: 5 [...] kg (128 lb 3.2 oz) SpO2 97% BMI21.83 kg/m Physical Exam Vitals and nursing note [...] sooner if worsening of symptoms Nadia Reddy APRN.JOHANNA documented in this encounterPaulding County Hospital06-02-2023 Miscellaneous Notes* Telephone Encounter - Martha Rollins Ma - 12/26/2022 8:14 AM EDT Records have been faxed as requested. Confirmation received. * Telephone Encounter - Kira Miles LPN - 12/24/2022 4:01 PM EDT Patient called. Verified name and date of . Patient states she was told by someone when she called into the clinic to call department to get her records and have them sent to [facility], Dr. Calvert. Attention: Brisa- fax to [phone]. Records from June including operative records, x-rays, testing done. Kira Miles LPN documented in this encounterPaulding County Hospital02-17-2023 History of Present illness Narrative* Tess Acosta Pss - 09/12/2022 10:02 AM EST POPULATION HEALTH NAVIGATION OUTREACH Action/FYI: [employer] Care Gaps 09/12/22 Discuss the following due/overdue HM care gaps: ~6 Month follow up (around 02/12/23 w/ SUPERINTENDENT COMPRESSOR [employer]ATIONS.ELL TUTOR per 08/15/22 PCP notes) Outcome: ~Spoke with patient, scheduled with PA per patient request on 02/12/23. Patient Identified by Name and : YES, via phone Outreach Outcome/Action Spoke to patient / parent / legal guardian: Patient scheduled Did you use a PCP flex slot to schedule this appointment? No Reason for Outreach Care Gap or Scheduling/Wellness visits Payer: Payor: [employer] / Plan: AET MEDICARE PPO / Product Type: PPO / Care Gap Reviewed:: Follow-up appointment Reminder: Reminder note to check Health Maintenance for items below Health Maintenance items due: There are no preventive care reminders to display for this patient. Navigation Signature: Tess Acosta Population Health Navigator September 12, 2022 10:02 AM documented in this encounterPaulding County Hospital02-02-2023 Miscellaneous Notes* Telephone Encounter - Josee Berman LPN - 08/28/2022 12:35 PM EST Pt notified an Rx has been sent to the pharmacy for her. Pt voiced understanding. Josee Berman LPN * Telephone Encounter - Tacos Hein MD - 08/28/2022 12:26 PM EST Let patient know [facility] The following approved medication requests have been transmitted electronically. Requested Prescriptions Signed Prescriptions Disp Refills cefADROxil (DURICEF) 500 mg capsule 20 capsule 0 Sig: Take 1 capsule by mouth twice daily. Authorizing Provider: TACOS HEIN MD * Telephone Encounter - Marilou Pereira Pss - 08/28/2022 11:24 AM EST Esme saw Dr. Hein on 08-15-22 for a check up and had some cold symptoms. They have not improved much and she was told that he would call in a script if she let him know her status. Please send to [facility] in [place]. Esme [phone] documented in this encounterPaulding County Hospital01-25-2023 Miscellaneous Notes* Telephone Encounter - Jeannie Pool MA - 08/20/2022 9:05 AM EST Patient notified and voiced understanding. Jeannie Pool MA * Telephone Encounter - Tacos Hein MD - 08/20/2022 8:15 AM EST Let patient know her elevated white blood cell count may be from the steroid injection. I want to repeat the CBC in a month. Order placed. * Telephone Encounter - Kim Charles LPN - 08/19/2022 3:46 PM EST Spoke with pt and information listed below given. Pt verbalizes understanding. Pt got a pain injection about 2 to 3 weeks ago. Pt not scheduled for another injections but they are considering doing a procedure and she is not sure what it is called. Kim Charles LPN * Telephone Encounter - Jeannie Pool MA - 08/18/2022 1:34 PM EST Left message for patient to contact office. Jeannie Pool MA * Telephone Encounter - Tacos Hein MD - 08/18/2022 12:57 PM EST Let patient know her UA, electrolytes, liver [...] to treat with medication. documented in this encounterPaulding County Hospital01-20-2023 Instructions* Patient Instructions* Tacos Hein MD - 08/15/2022 8:12 AM EST Please bring in copies of living davis and durable power of sports attorney's for health care. For Lainey Dr. Cruz Recommend over the counter Astepro nasal spray. He can still use flonase. documented in this encounterPaulding County Hospital01-20-2023 History of Present illness Narrative* Tacos Hein MD - 08/15/2022 8:00 AM EST Medicare Yearly Visit Medical B eligibilty date [...] with patient, and I recommended no further interventionat this time. Functional Ability/Safety Screen 1. Was the patient's timed Up and Go test unsteady or longer than 30 seconds? No 2. Does the patient need help with the phone, transportation, shopping,preparing meals, housework, laundry, medications or managing money? No 3. Does your home have rugs in the hallway, lack of grab bars in the bathroom, lack of handrails onthe stairs or have poor lighting? No Hearing [...] HLP, inflammatory arthritis, RLS, insomnia, fibro, osteoporosis, chronicback pains and those as reviewed below. Patient [...] 2 Puffs as instructed every 4 hours asneeded for Wheezing/Shortness of Breath. VITAMIN B COMPLEX [...] in no acute distress, well-hydrated, well nourished. andThin. Skin: Skin color, texture, turgor normal, no [...] symmetric. Sensation to light touch and crainal nerves2-12 intact.. Health Maintenance List SHINGRIX VACCINE(3 of [...] Abs Lymph 1.00 - 4.00 k/uL 2.17 Mcdonough% % 5.6 Abs Mcdonough <0.87 k/uL 0.35 Eosin% % 2.7 Abs [...] diet of 1000 mg/day for under 50, 1200- 1500 mg/day for 50+ - Follow up for [...] which included preparing to see the patient, [id number] patient care, completing clinical documentation, performing a medically appropriate examination, counseling and educating the patient/family/caregiver and ordering medications, tests, or procedures. Tacos Hein MD documented in this encounterPaulding [facility] Hospital12-30-2022 Miscellaneous Notes* Telephone Encounter - Luciana Alexis RN - 07/25/2022 4:48 PM EST Patient signed medical release form. Operative note faxed. Release form scanned into [employer]. * Telephone Encounter - Luciana Alexis RN - 07/25/2022 9:00 AM EST Phone call to patient. Advised patient to sign release of medical records prior to faxing report. Patient to stop in office and sign release. Release placed at Ortho/Podi/PT PSS desk. * Telephone Encounter - Rosita Jasso - 07/24/2022 2:48 PM EST Patient is requesting the procedure notes from her surgery on 04/10/[address] Burgess. Please fax to [facility] at [phone] attn: Maya Mohan. documented in this encounterPaulding County Hospital12-21-2022 History of Present illness Narrative* Susanne West LPN - 07/16/2022 9:09 AM EST Patient presents for Prolia injection. Denies any problems at this time. Brought own medication. Patient instructed on any SE of medication, verbalized understanding and agreed to proceed with treatment. Tolerated injection well. Susanne West LPN documented in this encounterPaulding County Hospital12-12-2022 Miscellaneous Notes* Telephone Encounter - Tacos Hein MD - 07/07/2022 4:06 PM EST The following approved medication requests have been transmitted electronically. Requested Prescriptions Signed Prescriptions Disp Refills denosumab (PROLIA) 60 mg/mL 1 mL 1 Si milliliter subcutaneously every 6 months. Authorizing Provider: TACOS HEIN MD * Telephone Encounter - Jeannie Pool MA - 07/07/2022 2:15 PM EST Patient has been identified by name and date of : Yes Requested Prescriptions Pending Prescriptions Disp Refills denosumab (PROLIA) 60 mg/mL 1 mL 1 Si milliliter subcutaneously every 6 months. RX INSTRUCTIONS: Patient aware RX will be sent to pharmacy. No need to notify patient. Jeannie Pool MA Asim: 01/2022 Nov: 07/2022 Last refill: 01/2021 documented in this encounterPaulding County Hospital12-12-2022 History of Present illness Narrative* Jose A Burgess MD - 07/07/2022 8:10 AM EST Jose A Burgess MD Department of Orthopaedics Orthopaedics [address] [place] [address] Dept: [phone] Dept July 07, 2022 CHIEF COMPLAINT: Established [...] 2 Puffs as instructed every 4 hours asneeded for Wheezing/Shortness of Breath. VITAMIN B COMPLEX [...] Jose A Burgess MD documented in this encounterPaulding County Hospital12-07-2022 Miscellaneous Notes* Telephone Encounter - Martha Rollins Ma - 07/02/2022 11:03 AM EST Patient has been contacted and appointment moved to 07/07/2022. * Telephone Encounter - Marilou Park - 07/01/2022 5:14 PM EST Pt scheduled an appt for 07/17/22, the soonest appt available at the time of call. She states she is having pain at the site of her surgery done in March along with what looks like a water blister and some redness. She was concerned she should be seen sooner. documented in this encounterPaulding County Hospital12-05-2022 Miscellaneous Notes* Telephone Encounter - Tacos Hein MD - 06/30/2022 5:14 PM EST done * Telephone Encounter - Susanne West LPN - 06/30/2022 1:48 PM EST Patient scheduled for nurse visit 07/16/22 to receive Prolia injection. Please place new administration order at this time. Susanne West LPN documented in this encounterPaulding County Hospital11-12-2022 Miscellaneous Notes* Telephone Encounter - Tacos Hein MD - 06/07/2022 10:32 AM EST The following approved medication requests have been transmitted electronically. Requested Prescriptions Signed Prescriptions Disp Refills fluticasone (FLONASE) 50 mcg/actuation nasal spray 48 g 11 Sig: instill 2 sprays into each nostril once daily Authorizing Provider: TACOS HEIN MD * Telephone Encounter - Bryan Faustin LPN - 06/07/2022 10:07 AM EST Patient phones requesting refills as follows: Requested Prescriptions Pending Prescriptions Disp Refills fluticasone (FLONASE) 50 mcg/actuation nasal spray 48 g 11 Sig: instill 2 sprays into each nostril once daily ASIM 01/28/22 NOV 08/15/22 Please review and advise. Bryan Faustin LPN documented in this encounterPaulding County Hospital09-26-2022 History of Present illness Narrative* Anna Delcid PA-C - 04/21/2022 9:21 AM EDT Anna Delcid PA-C Department of Orthopaedics Orthopaedics [address] [facility] [address] Dept: [phone] Dept April 21, 2022 CHIEF COMPLAINT: Established [...] with the operative hand, encourage gentle motion. Wediscussed scar massage. Follow up as planned. Exam: [...] 2 Puffs as instructed every 4 hours asneeded for Wheezing/Shortness of Breath. VITAMIN B COMPLEX [...] Antibiotics) This note was partially generated using [employer] voice recognition system, and there may be some incorrect words, spellings, and punctuation that were not noted in checking the note before saving. Anna Delcid PA-C * Benita Schwarz RN - 04/21/2022 9:05 AM EDT Patient presents with: Right Hand - Established [...] not having any pain. documented in this encounterPaulding County Hospital08-15-2022 Miscellaneous Notes* Telephone Encounter - Jeannie Pool MA - 03/10/2022 1:14 PM EDT Patient notified and voiced understanding. Jeannie Pool MA * Telephone Encounter - Madison Mariee PA-C - 03/10/2022 11:53 AM EDT Let patient know that bone density still shows osteoporosis however has improved. Continue prolia. Madison Mariee PA-C documented in this encounterPaulding County Hospital08-15-2022 Miscellaneous Notes* Telephone Encounter - Jesus Manuel Frey APRN.CNP - 03/10/2022 12:20 PM EDT PDMP website checked and validated. All prescriptions have been APPROPRIATELY filled. No suspiciousactivity was identified. 03/10/2022 by Jesus Manuel Frey APRN.CNP The following approved medication requests have been transmitted electronically. Requested Prescriptions Signed Prescriptions Disp Refills montelukast (SINGULAIR) 10 mg tablet 30 tablet 5 Sig: Take 1 tablet by mouth daily at bedtime. Authorizing Provider: TACOS HEIN Ordering User: JESUS MANUEL FREY meloxicam (MOBIC) 7.5 mg tablet 90 tablet 1 Sig: Take 1 tablet by mouth once daily. Authorizing Provider: TACOS HENI Ordering User: JESUS MANUEL FREY gabapentin (NEURONTIN) 300 mg capsule 30 capsule 5 Sig: Take 1 capsule by mouth daily at bedtime for 180 days. Authorizing Provider: TACOS HEIN Ordering User: JESUS MANUEL FREY APRN.CNP * Telephone Encounter - Jeannie Pool MA - 03/10/2022 9:33 AM EDT Patient has been identified by name and [...] 07/2022 Last refill: 08/2021 documented in this encounterPaulding County Hospital08-15-2022 History of Present illness Narrative* RT Inés(R) - 03/10/2022 9:30 AM EDT Radiology Service Progress Note PATIENT NAME: Lupis Brito DATE OF SERVICE: March 10, 2022 TIME: 9:32 AM PATIENT IDENTITY VERIFICATION COMPLETED USING TWO (2) IDENTIFIERS: Name and Date of confirmedby patient verbally. FALL SCREENING: Has the patient [...] 10, 2022 9:32 AM documented in this encounterPaulding County Hospital08-05-2022 Miscellaneous Notes* Telephone Encounter - Martha Rollins Ma - 02/28/2022 8:03 AM EDT Surgery has been scheduled as requested. * Telephone Encounter - Rosario Aden Ma - 02/27/2022 1:21 PM EDT Patient scheduled for Right 5th finger excision ganglion cyst on 04/10/22. Surgical request completed. Post op appointment scheduled and mailed to patient. documented in this encounterPaulding County Hospital08-02-2022 Miscellaneous Notes* Telephone Encounter - Madison Mariee PA-C - 02/25/2022 11:49 AM EDT Noted. Madison Mariee PA-C * Telephone Encounter - Ruchi Valenzuela Ma - 02/25/2022 11:26 AM EDT Call to pt and notified of message below. Verbalized understanding. Pt ate about 30 minutes before completing labs. Ruchi Valenzuela Ma * Telephone Encounter - Madison Mariee PA-C - 02/25/2022 11:21 AM EDT Let patient know that cholesterol Is high. LDL at 150 with goal of 100. Glucose was 103. Was she fasting? Rest of labs are normal. Watch diet. documented in this encounterPaulding County Hospital07-28-2022 History of Present illness Narrative* Jose A Burgess MD - 02/20/2022 2:42 PM EDT Patient presents with: Right Hand - New, Pain: 5th finger Jose A Burgess MD Department of Orthopaedics Orthopaedics [facility] [address] [facility] [address] Dept: [phone] Dept February 20, 2022 Consultation requested by [...] 2 Puffs as instructed every 4 hours asneeded for Wheezing/Shortness of Breath. VITAMIN B COMPLEX [...] mail or electronic medical record. Madison Mariee [address] [facility] [address] Tacos Hein MD [address] [place] [address] Jose A Burgess MD documented in this encounterPaulding County Hospital07-05-2022 Instructions* Patient Instructions* Madison Mariee PA-C - 01/28/2022 7:46 AM EDT BONE MINERAL DENSITY PATIENT INSTRUCTIONS Bone mineral density testing measures the amount of calcium in certain parts of your bones. This information determines how strong your bones are. The test is used to detect osteoporosis, a disease in which the bone's mineral content and density are low, increasing a person's risk of fractures. Thelumbar spine (lower back) and the hip are [...] your usual activities immediately. documented in this encounterPaulding County Hospital07-05-2022 History of Present illness Narrative* Madison Mariee PA-C - 01/28/2022 7:28 AM EDT Chief Complaint Patient presents with: F/U 6 Month HPI Lupis Brito is a 71 year old female who presents here today for Chronic Medical Conditions.. Patient with hx of asthma, HLP, inflammatory arthritis, RLS, insomnia, fibro, osteoporosis, chronicback pains and those as below. Patient overall [...] 2 Puffs as instructed every 4 hours asneeded for Wheezing/Shortness of Breath. VITAMIN B COMPLEX [...] tolerated Madison Mariee PA-C documented in this encounterPaulding County Hospital06-21-2022 History of Present illness Narrative* Susanne West LPN - 01/14/2022 10:49 AM EDT Patient presents for Prolia injection. Denies any problems at this time. Brought own medication. Patient instructed on any SE of medication, verbalized understanding and agreed to proceed with treatment. Tolerated injection well. Susanne West LPN documented in this encounterPaulding County Hospital05-24-2022 History of Present illness Narrative* Madison Mariee PA-C - 12/17/2021 8:11 AM EDT Chief Complaint Patient presents with: Derm Problem: [...] 2 Puffs as instructed every 4 hours asneeded for Wheezing/Shortness of Breath. VITAMIN B COMPLEX [...] worsening. Madison Mariee PA-C documented in this encounterPaulding County Hospital04-08-2022 History of Present illness Narrative* Tess Acosta Pss - 11/01/2021 10:40 AM EDT POPULATION HEALTH NAVIGATION OUTREACH Action/FYI: [employer] Care Gaps Discuss/Due: Advance Directives, Colorectal Cancer Screening 01/23/22 or after Outcome: Left message on voice mail and sent [employer] message. Pt identified by name and : [...] 01, 2021 10:40 AM documented in this encounterPaulding County Hospital06-09-2008 History of Past illness Narrative* Problem Noted Date Resolved Date Acute gastritis without mention of hemorrhage 01/01/2015 Other bursitis disorders 08/20/2004 005 documented as of this encounter (statuses as of 11/01/2021) [facility] of [facility] illness Narrative* Problem Noted Date Resolved Date Acute gastritis without mention of hemorrhage 01/01/2015 Other bursitis disorders 08/20/2004 005 documented as of this encounter (statuses as of 12/17/2021) [facility] Narrative* Problem Noted Date Resolved Date Acute gastritis without mention of hemorrhage 01/01/2015 Other bursitis disorders 08/20/2004 005 documented as of this encounter (statuses as of 01/14/2022) [facility] Narrative* Problem Noted Date Resolved Date Acute gastritis without mention of hemorrhage 01/01/2015 Other bursitis disorders 08/20/2004 005 documented as of this encounter (statuses as of 01/28/2022) [facility] Narrative* Problem Noted Date Resolved Date Acute gastritis without mention of hemorrhage 01/01/2015 Other bursitis disorders 08/20/2004 005 documented as of this encounter (statuses as of 02/25/2022) [facility] Narrative* Problem Noted Date Resolved Date Acute gastritis without mention of hemorrhage 01/01/2015 Other bursitis disorders 08/20/2004 005 documented as of this encounter (statuses as of 02/28/2022) [facility] Narrative* Problem Noted Date Resolved Date Acute gastritis without mention of hemorrhage 01/01/2015 Other bursitis disorders 08/20/2004 005 documented as of this encounter (statuses as of 03/04/2022) [facility] Narrative* Problem Noted Date Resolved Date Acute gastritis without mention of hemorrhage 01/01/2015 Other bursitis disorders 08/20/2004 005 documented as of this encounter (statuses as of 03/10/2022) [facility] Narrative* Problem Noted Date Resolved Date Acute gastritis without mention of hemorrhage 01/01/2015 Other bursitis disorders 08/20/2004 005 documented as of this encounter (statuses as of 03/10/2022) [facility]arrative* Problem Noted Date Resolved Date Acute gastritis without mention of hemorrhage 01/01/2015 Other bursitis disorders 08/20/2004 005 documented as of this encounter (statuses as of 03/11/2022) [facility] Narrative* Problem Noted Date Resolved Date Acute gastritis without mention of hemorrhage 01/01/2015 Other bursitis disorders 08/20/2004 005 documented as of this encounter (statuses as of 04/21/2022) [facility]arrative* Problem Noted Date Resolved Date Acute gastritis without mention of hemorrhage 01/01/2015 Other bursitis disorders 08/20/2004 005 documented as of this encounter (statuses as of 06/07/2022) [facility]* Problem Noted Date Resolved Date Acute gastritis without mention of hemorrhage 01/01/2015 Other bursitis disorders 08/20/2004 005 documented as of this encounter (statuses as of 06/30/2022) [facility]arrative* Problem Noted Date Resolved Date Acute gastritis without mention of hemorrhage 01/01/2015 Other bursitis disorders 08/20/2004 005 documented as of this encounter (statuses as of 07/02/2022) [facility]ative* Problem Noted Date Resolved Date Acute gastritis without mention of hemorrhage 01/01/2015 Other bursitis disorders 08/20/2004 005 documented as of this encounter (statuses as of 07/07/2022) [facility]* Problem Noted Date Resolved Date Acute gastritis without mention of hemorrhage 01/01/2015 Other bursitis disorders 08/20/2004 005 documented as of this encounter (statuses as of 07/07/2022) [facility]* Problem Noted Date Resolved Date Acute gastritis without mention of hemorrhage 01/01/2015 Other bursitis disorders 08/20/2004 005 documented as of this encounter (statuses as of 07/16/2022) [facility]* Problem Noted Date Resolved Date Acute gastritis without mention of hemorrhage 01/01/2015 Other bursitis disorders 08/20/2004 005 documented as of this encounter (statuses as of 07/30/2022) [facility]* Problem Noted Date Resolved Date Acute gastritis without mention of hemorrhage 01/01/2015 Other bursitis disorders 08/20/2004 005 documented as of this encounter (statuses as of 08/15/2022) [facility]* Problem Noted Date Resolved Date Acute gastritis without mention of hemorrhage 01/01/2015 Other bursitis disorders 08/20/2004 005 documented as of this encounter (statuses as of 08/20/2022) [facility]* Problem Noted Date Resolved Date Acute gastritis without mention of hemorrhage 01/01/2015 Other bursitis disorders 08/20/2004 005 documented as of this encounter (statuses as of 08/28/2022) [facility]* Problem Noted Date Resolved Date Acute gastritis without mention of hemorrhage 01/01/2015 Other bursitis disorders 08/20/2004 005 documented as of this encounter (statuses as of 09/12/2022) [facility]* Problem Noted Date Resolved Date Acute gastritis without mention of hemorrhage 01/01/2015 Other bursitis disorders 08/20/2004 005 documented as of this encounter (statuses as of 12/26/2022) [facility]* Problem Noted Date Resolved Date Acute gastritis without mention of hemorrhage 01/01/2015 Other bursitis disorders 08/20/2004 005 documented as of this encounter (statuses as of 12/31/2022) [facility]* Problem Noted Date Resolved Date Acute gastritis without mention of hemorrhage 01/01/2015 Other bursitis disorders 08/20/2004 005 documented as of this encounter (statuses as of 01/29/2023) [facility]* Problem Noted Date Resolved Date Acute gastritis without mention of hemorrhage 01/01/2015 Other bursitis disorders 08/20/2004 005 documented as of this encounter (statuses as of 01/30/2023) [facility]* Problem Noted Date Diagnosed Date Resolved Date Acute gastritis without mention of hemorrhage 01/03/20 08 01/01/2015 Other bursitis disorders 08/20/2004 documented as of this encounter (statuses as of 02/21/2023) [facility]* Problem Noted Date Diagnosed Date Resolved Date Acute gastritis without mention of hemorrhage 01/03/20 08 01/01/2015 Other bursitis disorders 08/20/2004 documented as of this encounter (statuses as of 03/19/2023) [facility]* Problem Noted Date Diagnosed Date Resolved Date Acute gastritis without mention of hemorrhage 01/03/20 08 01/01/2015 Other bursitis disorders 08/20/2004 documented as of this encounter (statuses as of 03/19/2023) [facility]* Problem Noted Date Diagnosed Date Resolved Date Acute gastritis without mention of hemorrhage 01/03/20 08 01/01/2015 Other bursitis disorders 08/20/2004 documented as of this encounter (statuses as of 03/19/2023) [facility]* Problem Noted Date Diagnosed Date Resolved Date Acute gastritis without mention of hemorrhage 01/03/20 08 01/01/2015 Other bursitis disorders 08/20/2004 documented as of this encounter (statuses as of 03/26/2023) [facility]* Problem Noted Date Diagnosed Date Resolved Date Acute gastritis without mention of hemorrhage 01/03/20 08 01/01/2015 Other bursitis disorders 08/20/2004 documented as of this encounter (statuses as of 04/13/2023) [facility]* Problem Noted Date Diagnosed Date Resolved Date Acute gastritis without mention of hemorrhage 01/03/20 08 01/01/2015 Other bursitis disorders 08/20/2004 documented as of this encounter (statuses as of 04/15/2023) [facility]* Problem Noted Date Diagnosed Date Resolved Date Acute gastritis without mention of hemorrhage 01/03/20 08 01/01/2015 Other bursitis disorders 08/20/2004 documented as of this encounter (statuses as of 05/27/2023) [facility]* Problem Noted Date Diagnosed Date Resolved Date Acute gastritis without mention of hemorrhage 01/03/20 08 01/01/2015 Other bursitis disorders 08/20/2004 documented as of this encounter (statuses as of 05/31/2023) [facility]* Problem Noted Date Diagnosed Date Resolved Date Acute gastritis without mention of hemorrhage 01/03/20 08 01/01/2015 Other bursitis disorders 08/20/2004 documented as of this encounter (statuses as of 09/08/2023) [facility]* Problem Noted Date Diagnosed Date Resolved Date Acute gastritis without mention of hemorrhage 01/03/20 08 01/01/2015 Other bursitis disorders 08/20/2004 documented as of this encounter (statuses as of 09/09/2023) [address] History of Past illness Narrative* Problem Noted Date Diagnosed Date Resolved Date Acute gastritis without mention of hemorrhage 01/03/20 08 01/01/2015 Other bursitis disorders 08/20/2004 documented as of this encounter (statuses as of 09/18/2023) [address] History of Past illness Narrative* Problem Noted Date Diagnosed Date Resolved Date Acute gastritis without mention of hemorrhage 01/03/20 08 01/01/2015 Other bursitis disorders 08/20/2004 documented as of this encounter (statuses as of 10/13/2023) [address] History of Past illness Narrative* Problem Noted Date Diagnosed Date Resolved Date Acute gastritis without mention of hemorrhage 01/03/20 08 01/01/2015 Other bursitis disorders 08/20/2004 documented as of this encounter (statuses as of 10/29/2023) [address] History of Past illness Narrative* Problem Noted Date Diagnosed Date Resolved Date Acute gastritis without mention of hemorrhage 01/03/20 08 01/01/2015 Other bursitis disorders 08/20/2004 documented as of this encounter (statuses as of 10/29/2023) [place] [address] History of Past illness Narrative* Problem Noted Date Diagnosed Date Resolved Date Acute gastritis without mention of hemorrhage 01/03/20 08 01/01/2015 Other bursitis disorders 08/20/2004 documented as of this encounter (statuses as of 11/06/2023) [facility] noteThere may be information available, but it has not been provided by the sender.[facility] Work Phone: Evaluation noteNo assessment information available [facility] Work Phone: Evaluation note* Diagnosis Fibromyalgia- Primary Mylagia and myositis, unspecified Seborrheic dermatitis of scalp Other seborrheic dermatitis Hand arthritis Unspecified arthropathy, hand Ganglion cyst Ganglion, unspecified documented in this encounter [facility] [place] [facility]* Diagnosis Osteoporosis, unspecified osteoporosis type, unspecified pathological fracture presence- Primary documented in this encounter [facility] note* Diagnosis Dyslipidemia- Primary Other and unspecified [...] fracture Senile osteoporosis documented in this encounter [facility] note* Diagnosis Ganglion cyst of finger of right hand- Primary Ganglion cyst of finger of right hand documented in this encounter [facility] [place] [facility]* Diagnosis Ganglion cyst Ganglion, unspecified Ganglion cyst of finger of right hand documented in this encounter [facility] [facility] [place] [facility]* Diagnosis Osteoporosis, unspecified osteoporosis type, unspecified pathological fracture presence Ganglion cyst of finger of right hand documented in this encounter [facility] [place] [facility]* Diagnosis Ganglion cyst of finger of right hand- Primary [facility] [place] [facility] Diagnosis Osteoporosis, unspecified osteoporosis type, unspecified pathological fracture presence- Primary documented in this encounter [facility] [place] [facility]* Diagnosis Ganglion cyst of finger of right hand- Primary [facility] [place] [facility]* Diagnosis Osteoporosis, unspecified osteoporosis type, unspecified pathological fracture presence documented [facility] this [facility] [place] [facility]* Diagnosis Osteoporosis, unspecified osteoporosis type, unspecified pathological fracture presence- Primary documented [facility] [place] [facility]* Diagnosis Medicare annual wellness visit, subsequent- [...] Unspecified sinusitis (chronic) documented in this encounter [facility] note* Diagnosis Leukocytosis, unspecified type- Primary documented in this encounter [facility] note* Diagnosis Acute otitis media, left- Primary Unspecified otitis media URI, acute Acute upper respiratory infections of unspecified site documented in this encounter [facility] note* Diagnosis Allergic reaction, initial encounter- Primary documented in this encounter [facility] note* Diagnosis Osteoporosis, unspecified osteoporosis type, unspecified pathological fracture presence documented in this encounter [facility] note* Diagnosis Osteoporosis, unspecified osteoporosis type, unspecified pathological fracture presence [facility] [place] [facility]* Diagnosis Dyspnea, unspecified type- Primary documented in this encounter [facility] note* Diagnosis Mild persistent asthma without complication- Primary Unspecified asthma Deviated nasal septum History of seasonal allergies Other allergy, other than to medicinal agents documented in this encounter [facility] note* Diagnosis Mild persistent asthma without complication- Primary Unspecified asthma Need for influenza vaccination Need for prophylactic vaccination and inoculation against influenza Deviated nasal septum History of seasonal allergies Other allergy, other than to medicinal agents documented [facility] [place] [facility]* Diagnosis Chronic sinusitis, unspecified location Chronic pansinusitis Other chronic sinusitis Mass of hard palate Swelling, mass, or lump in head and neck documented in this encounter [facility] note* Diagnosis Osteoporosis, unspecified osteoporosis type, unspecified pathological fracture presence- Primary documented in this encounter [facility] note* Diagnosis Osteoporosis, unspecified osteoporosis type, unspecified pathological fracture presence- Primary documented in this encounter [facility] note* Diagnosis Conjunctivitis of right eye, unspecified conjunctivitis type- Primary Rhinosinusitis Unspecified sinusitis (chronic) documented in this encounter [facility] note* Diagnosis Mild intermittent asthma without complication- Primary Unspecified asthma Seasonal allergies Allergic rhinitis, cause unspecified documented in this encounter [facility] note* Diagnosis Osteoporosis, unspecified osteoporosis type, unspecified pathological fracture presence documented in this encounter [facility] note* Diagnosis Accelerated atrioventricular junctional rhythm- Primary Subclinical hypothyroidism Other specified acquired hypothyroidism Dyslipidemia Other and unspecified hyperlipidemia Medication management Encounter for long-term (current) use of other medications Vitamin D deficiency Unspecified vitamin D deficiency documented in this encounter [facility] note* Diagnosis Osteoporosis, unspecified osteoporosis type, unspecified pathological fracture presence- Primary [facility] [place] [facility] Diagnosis Mild intermittent asthma without complication- Primary Unspecified asthma Hoarseness of voice Dysphonia documented [facility] [place] [facility]* Diagnosis Medicare annual wellness visit, subsequent- [...] Screening for depression documented [facility] this [facility] [place] [facility]* Diagnosis Peroneal neuropathy, unspecified laterality- Primary documented [facility] [place] [facility]* Diagnosis Neuropathy- Primary Mononeuritis of unspecified site Peroneal neuropathy, unspecified laterality documented [facility] this [facility] [place] [facility]* Diagnosis Osteoporosis, unspecified osteoporosis type, unspecified pathological fracture presence- Primary documented [facility] [place] [facility]* Diagnosis Osteoporosis, unspecified osteoporosis type, unspecified pathological fracture presence documented [facility] [place] [facility]* Diagnosis Osteoporosis, unspecified osteoporosis type, unspecified pathological fracture presence- Primary documented [facility] [place] [facility]* Diagnosis Gammopathy, monoclonal- Primary Monoclonal paraproteinemia documented [facility] this [facility] [place] [facility]* Diagnosis Osteoporosis, unspecified osteoporosis type, unspecified pathological fracture presence- Primary documented [facility] [place] [facility]* Diagnosis Radiculopathy, lumbosacral region- Primary Thoracic or lumbosacral neuritis or radiculitis, unspecified Neuropathy Mononeuritis of unspecified site Paresthesia of skin Disturbance of skin sensation documented [facility] [place] [facility]* Diagnosis Spinal stenosis of lumbar region without neurogenic claudication- Primary Spinal stenosis, lumbar region, without neurogenic claudication documented [facility] this [facility] [place] [facility]* Diagnosis Spinal stenosis of lumbar region without neurogenic claudication Spinal stenosis, lumbar region, without neurogenic claudication documented [facility] this [facility] [place] [facility]* Diagnosis Increased immunoglobulin- Primary Other and unspecified nonspecific immunological findings [facility] Diagnosis Spinal stenosis of lumbar region without neurogenic claudication- Primary Spinal stenosis, lumbar region, without neurogenic claudication documented [facility] this [facility] [place] [facility]* Diagnosis Spinal stenosis of lumbar region without neurogenic claudication- Primary Spinal stenosis, lumbar region, without neurogenic claudication documented [facility] this [facility] [place] [facility]* Diagnosis Spinal stenosis of lumbar region without neurogenic claudication- Primary Spinal stenosis, lumbar region, without neurogenic claudication documented [facility] this [facility] [place] [facility]* Diagnosis SI (sacroiliac) pain- Primary Disorders of sacrum Greater trochanteric bursitis of right hip Enthesopathy of hip region Numbness and tingling of both feet documented [facility] [place] [facility]* Diagnosis Spinal stenosis of lumbar region without neurogenic claudication- Primary Spinal stenosis, lumbar region, without neurogenic claudication documented [facility] this [facility] [place] [facility]* Diagnosis Mild intermittent asthma without complication (HCC)- Primary Unspecified asthma documented [facility] this [facility] [place] [facility]* Diagnosis Onset Date Resolution Status Admit Date Asthma chronic December 27, 2024 9:59am Dyslipidemia chronic December 27 9:59am Osteoporosis chronic December 27 9:59am Supraventricular tachycardia chronic December 27, 2024 9:59am [facility] Work Phone: Hospital Discharge instructions Additional Instructions We did speak with your primary care physician's office, you need to follow-up outpatient for stress test CHAD. [facility] any worsening [facility] Work Phone: Instructions* Instruction Description Start Date Completed [facility] Work Phone: Progress note Author Kailee Mcnair [facility] Note Date/Time December 27, 2024 10:43 am [facility] [address] [place] [address]. [address] [place], [place] [address] OFFICE VISIT Date of Service: 12/27/24 MR#: [id number] Acct: [id number] Name: LUPIS BRITO Rep #: [id number] : 1950 Provider: Dr. Jeffry Mcnair MD Age/Sex: 74/F [facility] Status: Signed HPI HPI History of [...] Pulse Source NIBP Intake Visit Reasons: S/P [facility] 11/15 (SELF) [employer] Required: No Accompanied by: Is patient in pain?: Yes (02/02 back pain) Allergies clindamycin Allergy (Mild, Verified [...] denosumab 60 mg/mL subcutaneous 60 mg subcut .[id number] bone health 01/28/24 12/27/24 History syringe (Prolia) [...] the past month, related to back pain) [facility] Medical History (Updated 12/27/24 @ 10:42 by [...] Orders: Orders 12 Lead EKG performed by [facility] Today I47.10 - Supraventricular tachycardia, unspecified, I49.8 [...] Signature: Date (if applicable) CC: Dr. Tacos Hein MD ~ [facility] Work Phone: Reason for referral (narrative)* Outpatient Procedure (Routine) - Authorized Specialty Diagnoses / Procedures Referred By Contac t Referred To Contact [facility] Diagnoses Dyspnea, unspecified type Procedures SPIROMETRY WITH DILATOR IF OBSTRUCTED BRNCDILAT RSPSE SPMTRY PRE&POST-BRNCDILAT Alona Bills MD [address] [place] [address] Respiratory [place] [address] [place] [id number] Referral ID Status Reason Start Date Expiration Date Visits Requested Visits Authorized [id number] Authorized Auto-Generat ed Referral 03/26/2023 04/24/2024 1 1 [facility] for referral (narrative)* Diagnostic Procedure Only (Routine) - Authorized Specialty Diagnoses / Procedures Referred By Contac t Referred To Contact XR IMAGING Diagnoses Osteoporosis, unspecified osteoporosis type, unspecified pathological fracture presence Procedures DXA-AXIAL SKELETON DXA BONE DENSITY STUDY 1/> SITES AXIAL Tacos Mcmanus MD [address] [place] [address] Xr Imaging [facility] Referral ID Status Reason Start Date Expiration Date Visits Requested Visits Authorized [id number] Authorized Auto-Generat ed Referral 08/16/2024 09/15/2025 1 1 [facility] for referral (narrative)No reason for referral information availableWSumma [facility] Work Phone: [facility] N[facility]* Diagnostic Procedure Only (Routine) - Closed Specialty Diagnoses / Procedures Referred By Contac t Referred To Contact XR IMAGING Diagnoses Osteoporosis, unspecified osteoporosis type, unspecified pathological fracture presence Procedures DXA-AXIAL SKELETON DXA BONE DENSITY STUDY 1/> SITES AXIAL Tacos Mcmanus MD [address] [place] [address] Phone: tel: fax: XR IMAGING [facility] Referral ID Status Reason Start Date Expiration Date V isits Requested Visits Authorized [id number] Closed Auto-Generate d Referral 08/16/2024 09/15/2025 1 1 [facility] for visit Narrative* MRI/CT (Routine) - Closed Specialty Diagnoses / Procedures Referred By Contac t Referred To Contact MR IMAGING Diagnoses Spinal stenosis of lumbar region without neurogenic claudication Procedures MRI LUMBAR SPINE WO IVCON MRI SPINAL CANAL LUMBAR W/O CONTRAST MATERIAL Rody Pablo PA-C [address] [place] [address] Phone: tel: fax: [place] [address] Referral ID Status Reason Start Date Expiration Date V isits Requested Visits Authorized [id number] Closed Auto-Generate d Referral 10/07/2024 11/06/2025 1 1 [facility] Chief Complaint Chief Complaint Description Start Date lower back pain Preliminary chief co mplaint data, not yet signed by the author as of Advance Directives No Advanced Directives Records Found Advance Directive Response Recorded Date/ Time Living Will Yes August 03 2:15pm Power of Rn Surgical Pcu Yes August 03, 024 2:15pm Name of Medical Power of Rn Surgical Pcu SPOUSE August 03, 2023 2:15pm Advance Directive Response Recorded Date/ Time Name of Medical Power of Rn Surgical Pcu SPOUSE August 03, 2023 2:15pm Living Will Yes August 03 2:15pm Power of Rn Surgical Pcu Yes August 03, 024 2:15pm Advance Directive Response Recorded Date/ Time Do you have a Healthcare Power of Rn Surgical Pcu? No November 15, 2024 9:02am Family History [...] PALPATIONS November 15, 2024 9:0 2am S/P [facility] 11/15 (SELF) December 27, 2024 9:59 am Reason for Visit Admit Date Asthma December 27, 2024 9:59a m Dyslipidemia December 27, 2024 9:59a m Osteoporosis December 27, 2024 9:59a m Supraventricular tachycardia December 27, 2 025 9:59am Chief Complaint Admit Date PALPATIONS November 15, 2024 9:0 2am S/P [facility] 11/15 (SELF) December 27, 2024 9:59 am INT LABS January 20, 2025 5:58 am Medications Administered Section Inactive Administered Medications - [...] Ganglion cyst Procedures CONSULT TO ORTHOPAEDICS OFFICE/OUTPATIENT [facility] 60-74 MINUTES Madison Mariee PA-C [address] [place] [address] Referral ID Status Reason Start Date Expiration Date Visits Requested Visits Authorized [id number] Pending Review PCP Requested Referral 01/28/2022 01/28/2023 1 1 Specialty Diagnoses / Procedures Referred By Neeraj frias Referred To Contact Ent - Otolaryngology Diagnoses Deviated nasal septum Procedures CONSULT TO ENT Alona Cruz MD [address] [place] [address] Edi Bell [address] [place] [address] Referral ID Status Reason Start Date Expiration Date Visits Requested Visits Authorized [id number] Ref Not Required PCP Requested Referral 04/13/2023 04/12/2024 1 1 Specialty Diagnoses / Procedures Referred By Contac t Referred To Contact CT IMAGING Diagnoses Chronic sinusitis, unspecified location Chronic pansinusitis Mass of hard palate Procedures CT SINUS WO IVCON CT MAXILLOFACIAL W/O CONTRAST MATERIAL Madison Mariee PA-C [address] [place] [address] Ct Imaging [facility] Referral ID Status Reason Start Date Expiration Date V isits Requested Visits Authorized [id number] Closed Auto-Generate d Referral 02/12/2023 03/13/2024 1 1 Specialty Diagnoses / Procedures Referred By Contac t Referred To Contact Neurology Diagnoses Peroneal neuropathy, unspecified laterality Procedures CONSULT TO NEUROLOGY OFFICE/OUTPATIENT [facility] 60 MINUTES Tacos Hein MD [address] [place] [address] Referral ID Status Reason Start Date Expiration Date Visits Requested Visits Authorized [id number] Authorized PCP Requested Referral 09/01/2024 09/01/2025 1 [...] HIGH COMPLEX 45 MINS Rody Pablo PA-C [address] [place] [address] Phone: tel: fax: [facility] [address] [place] [address] Referral ID Status Reason Start Date Expiration Date Visits Requested Visits Authorized [id number] Authorized Auto-Generat ed Referral 07/27/2024 07/26/2025 99 99 Reason Comments PT Progress Note Reason Comments Physical Therapy Reason Comments Appointment Cancelled Reason Comments Imm/Inj Specialty Diagnoses / Procedures Referred By Contac t Referred To Contact Internal Medicine / FAMILY MEDICINE Diagnoses Prolia injection - please see note patient should be expecting by 09/15. Procedures NURSE Tacos Hein MD [address] [place] [address] Nurse, Dara [address] [place] [address] Referral ID Status Reason Start Date Expiration Date Visits Re quested Visits Authorized [id number] Closed 09/18/2023 09/18/2023 1 1 Reason For Visit Description Start Date Test Result Preliminary reason f or visit data, not yet signed by the author as of lower back pain Reason Onset Date Comments Population Health Navigation [...] HIGH MDM 60-74 MINUTES Madison Mariee PA-C [address] [place] [address] Referral ID Status Reason Start Date Expiration Date Visits Requested Visits Authorized [id number] Pending Review PCP Requested Referral 01/28/2022 01/28/2023 [...] W/O CONTRAST MATERIAL Madison Mariee PA-C [address] [place] [address] Ct [address] [facility] Referral ID Status Reason Start Date Expiration Date V isits Requested Visits Authorized [id number] Closed Auto-Generate d Referral 02/12/2023 03/13/2024 1 [...] Neuropathy Specialty Diagnoses / Procedures Referred By Neeraj frias Referred To Contact Neurology Diagnoses Peroneal neuropathy, unspecified laterality Procedures CONSULT TO NEUROLOGY OFFICE/OUTPATIENT NEW HIGH MDM 60 MINUTES Tacos Hein MD [address] [place] [address] Phone: tel: fax: Referral ID Status Reason Start Date Expiration Date V isits Requested Visits Authorized [id number] Closed PCP Requested Referral 09/01/2024 09/01/2025 1 1 Reason Onset Date Comments Refill Request 09/23/2024 Reason Comments New Patient Evaluation Specialty Diagnoses / Procedures Referred By Neeraj frias Referred To Contact Diagnoses Gammopathy, monoclonal Procedures CONSULT TO HEMATOLOGY/ONCOLOGY OFFICE/OUTPATIENT NEW HIGH MDM 60 MINUTES Rody Pablo PA-C [address] [place] [address] Phone: tel: fax: Referral ID Status Reason Start Date Expiration Date V isits Requested Visits Authorized [id number] Closed PCP Requested Referral 09/23/2024 09/23/2025 1 1 Reason Onset Date Comments EMG 10/07/2024 Specialty Diagnoses / Procedures Referred By Neeraj frias Referred To Contact [facility] Diagnoses Neuropathy Procedures EMG(NEURO/NI) NERVE CONDUCTION STUDIES 9-10 STUDIES Rody Pablo PA-C [address] [place] [address] Phone: tel: fax: Neurology [address] [place] [address] Phone: tel: Referral ID Status Reason Start Date Expiration Date V isits Requested Visits Authorized [id number] Closed Auto-Generate d Referral 09/27/2024 07/26/2025 1 1 Reason Onset Date Comments Results 10/07/2024 Reason Comments Established Patient Reason Comments PT Eval Reason Onset Date Comments Refill Request 11/10/2024 Reason Comments [facility] ER f/u Reason Onset Date Comments Results 12/11/2024 Reason Comments Hospital F/U Reason Comments Outside Cardiology Reason Comments Outside [id number] Ordered Source Comments (unrecognize d section and content) In the event this informatio n is protected by the Federal Confidentiality of Alcohol and Drug Abuse Patient Records regulations: The Federal rules restrict any use of the information to criminally investigate or prosecute any alcohol or drug abuse patient.[facility] the event this information is protected by the Federal Confidentiality of Alcohol and Drug Abuse Patient Records regulations: The Federal rules restrict any use of the information to criminally investigate or prosecute any alcohol or drug abuse patient.[facility] the event this information is protected by the Federal Confidentiality of Alcohol and Drug Abuse Patient Records regulations: The Federal rules restrict any use of the information to criminally investigate or prosecute any alcohol or drug abuse patient.[facility] the event this information is protected by the Federal Confidentiality of Alcohol and Drug Abuse Patient Records regulations: The Federal rules restrict any use of the information to criminally investigate or prosecute any alcohol or drug abuse patient.[facility] the event this information is protected by the Federal Confidentiality of Alcohol and Drug Abuse Patient Records regulations: The Federal rules restrict any use of the information to criminally investigate or prosecute any alcohol or drug abuse patient.[facility] the event this information is protected by the Federal Confidentiality of Alcohol and Drug Abuse Patient Records regulations: The Federal rules restrict any use of the information to criminally investigate or prosecute any alcohol or drug abuse patient.[facility] the event this information is protected by the Federal Confidentiality of Alcohol and Drug Abuse Patient Records regulations: The Federal rules restrict any use of the information to criminally investigate or prosecute any alcohol or drug abuse patient.[facility] the event this information is protected by the Federal Confidentiality of Alcohol and Drug Abuse Patient Records regulations: The Federal rules restrict any use of the information to criminally investigate or prosecute any alcohol or drug abuse patient.[facility] the event this information is protected by the Federal Confidentiality of Alcohol and Drug Abuse Patient Records regulations: The Federal rules restrict any use of the information to criminally investigate or prosecute any alcohol or drug abuse patient.[facility] the event this information is protected by the Federal Confidentiality of Alcohol and Drug Abuse Patient Records regulations: The Federal rules restrict any use of the information to criminally investigate or prosecute any alcohol or drug abuse patient.[facility] the event this information is protected by the Federal Confidentiality of Alcohol and Drug Abuse Patient Records regulations: The Federal rules restrict any use of the information to criminally investigate or prosecute any alcohol or drug abuse patient.[facility] the event this information is protected by the Federal Confidentiality of Alcohol and Drug Abuse Patient Records regulations: The Federal rules restrict any use of the information to criminally investigate or prosecute any alcohol or drug abuse patient.[facility]In the event this information is protected by the Federal Confidentiality of Alcohol and Drug Abuse Patient Records regulations: The Federal rules restrict any use of the information to criminally investigate or prosecute any alcohol or drug abuse patient.[facility] the event this information is protected by the Federal Confidentiality of Alcohol and Drug Abuse Patient Records regulations: The Federal rules restrict any use of the information to criminally investigate or prosecute any alcohol or drug abuse patient.[facility] the event this information is protected by the Federal Confidentiality of Alcohol and Drug Abuse Patient Records regulations: The Federal rules restrict any use of the information to criminally investigate or prosecute any alcohol or drug abuse patient.[facility] the event this information is protected by the Federal Confidentiality of Alcohol and Drug Abuse Patient Records regulations: The Federal rules restrict any use of the information to criminally investigate or prosecute any alcohol or drug abuse patient.[facility] HospitalIn the event this information is protected by the Federal Confidentiality of Alcohol and Drug Abuse Patient Records regulations: The Federal rules restrict any use of the information to criminally investigate or prosecute any alcohol or drug abuse patient.[facility]In the event this information is protected by the Federal Confidentiality of Alcohol and Drug Abuse Patient Records regulations: The Federal rules restrict any use of the information to criminally investigate or prosecute any alcohol or drug abuse patient.[facility] HospitalIn the event this information is protected by the Federal Confidentiality of Alcohol and Drug Abuse Patient Records regulations: The Federal rules restrict any use of the information to criminally investigate or prosecute any alcohol or drug abuse patient.[facility] HospitalIn the event this information is protected by the Federal Confidentiality of Alcohol and Drug Abuse Patient Records regulations: The Federal rules restrict any use of the information to criminally investigate or prosecute any alcohol or drug abuse patient.[facility] HospitalIn the event this information is protected by the Federal Confidentiality of Alcohol and Drug Abuse Patient Records regulations: The Federal rules restrict any use of the information to criminally investigate or prosecute any alcohol or drug abuse patient.[facility] HospitalIn the event this information is protected by the Federal Confidentiality of Alcohol and Drug Abuse Patient Records regulations: The Federal rules restrict any use of the information to criminally investigate or prosecute any alcohol or drug abuse patient.[facility] HospitalIn the event this information is protected by the Federal Confidentiality of Alcohol and Drug Abuse Patient Records regulations: The Federal rules restrict any use of the information to criminally investigate or prosecute any alcohol or drug abuse patient.[facility] HospitalIn the event this information is protected by the Federal Confidentiality of Alcohol and Drug Abuse Patient Records regulations: The Federal rules restrict any use of the information to criminally investigate or prosecute any alcohol or drug abuse patient.[facility] HospitalIn the event this information is protected by the Federal Confidentiality of Alcohol and Drug Abuse Patient Records regulations: The Federal rules restrict any use of the information to criminally investigate or prosecute any alcohol or drug abuse patient.[facility] HospitalIn the event this information is protected by the Federal Confidentiality of Alcohol and Drug Abuse Patient Records regulations: The Federal rules restrict any use of the information to criminally investigate or prosecute any alcohol or drug abuse patient.[facility] HospitalIn the event this information is protected by the Federal Confidentiality of Alcohol and Drug Abuse Patient Records regulations: The Federal rules restrict any use of the information to criminally investigate or prosecute any alcohol or drug abuse patient.[facility] HospitalIn the event this information is protected by the Federal Confidentiality of Alcohol and Drug Abuse Patient Records regulations: The Federal rules restrict any use of the information to criminally investigate or prosecute any alcohol or drug abuse patient.[facility] HospitalIn the event this information is protected by the Federal Confidentiality of Alcohol and Drug Abuse Patient Records regulations: The Federal rules restrict any use of the information to criminally investigate or prosecute any alcohol or drug abuse patient.[facility] HospitalIn the event this information is protected by the Federal Confidentiality of Alcohol and Drug Abuse Patient Records regulations: The Federal rules restrict any use of the information to criminally investigate or prosecute any alcohol or drug abuse patient.[facility] HospitalIn the event this information is protected by the Federal Confidentiality of Alcohol and Drug Abuse Patient Records regulations: The Federal rules restrict any use of the information to criminally investigate or prosecute any alcohol or drug abuse patient.[facility] HospitalIn the event this information is protected by the Federal Confidentiality of Alcohol and Drug Abuse Patient Records regulations: The Federal rules restrict any use of the information to criminally investigate or prosecute any alcohol or drug abuse patient.[facility] HospitalIn the event this information is protected by the Federal Confidentiality of Alcohol and Drug Abuse Patient Records regulations: The Federal rules restrict any use of the information to criminally investigate or prosecute any alcohol or drug abuse patient.[facility] HospitalIn the event this information is protected by the Federal Confidentiality of Alcohol and Drug Abuse Patient Records regulations: The Federal rules restrict any use of the information to criminally investigate or prosecute any alcohol or drug abuse patient.[facility] HospitalIn the event this information is protected by the Federal Confidentiality of Alcohol and Drug Abuse Patient Records regulations: The Federal rules restrict any use of the information to criminally investigate or prosecute any alcohol or drug abuse patient.[facility] HospitalIn the event this information is protected by the Federal Confidentiality of Alcohol and Drug Abuse Patient Records regulations: The Federal rules restrict any use of the information to criminally investigate or prosecute any alcohol or drug abuse patient.[facility] HospitalIn the event this information is protected by the Federal Confidentiality of Alcohol and Drug Abuse Patient Records regulations: The Federal rules restrict any use of the information to criminally investigate or prosecute any alcohol or drug abuse patient.[facility] HospitalIn the event this information is protected by the Federal Confidentiality of Alcohol and Drug Abuse Patient Records regulations: The Federal rules restrict any use of the information to criminally investigate or prosecute any alcohol or drug abuse patient.[facility] HospitalIn the event this information is protected by the Federal Confidentiality of Alcohol and Drug Abuse Patient Records regulations: The Federal rules restrict any use of the information to criminally investigate or prosecute any alcohol or drug abuse patient.[facility] HospitalIn the event this information is protected by the Federal Confidentiality of Alcohol and Drug Abuse Patient Records regulations: The Federal rules restrict any use of the information to criminally investigate or prosecute any alcohol or drug abuse patient.[facility] HospitalIn the event this information is protected by the Federal Confidentiality of Alcohol and Drug Abuse Patient Records regulations: The Federal rules restrict any use of the information to criminally investigate or prosecute any alcohol or drug abuse patient.[facility] HospitalIn the event this information is protected by the Federal Confidentiality of Alcohol and Drug Abuse Patient Records regulations: The Federal rules restrict any use of the information to criminally investigate or prosecute any alcohol or drug abuse patient.[facility] HospitalIn the event this information is protected by the Federal Confidentiality of Alcohol and Drug Abuse Patient Records regulations: The Federal rules restrict any use of the information to criminally investigate or prosecute any alcohol or drug abuse patient.[facility] HospitalIn the event this information is protected by the Federal Confidentiality of Alcohol and Drug Abuse Patient Records regulations: The Federal rules restrict any use of the information to criminally investigate or prosecute any alcohol or drug abuse patient.[facility] HospitalIn the event this information is protected by the Federal Confidentiality of Alcohol and Drug Abuse Patient Records regulations: The Federal rules restrict any use of the information to criminally investigate or prosecute any alcohol or drug abuse patient.[facility] HospitalIn the event this information is protected by the Federal Confidentiality of Alcohol and Drug Abuse Patient Records regulations: The Federal rules restrict any use of the information to criminally investigate or prosecute any alcohol or drug abuse patient.[facility] HospitalIn the event this information is protected by the Federal Confidentiality of Alcohol and Drug Abuse Patient Records regulations: The Federal rules restrict any use of the information to criminally investigate or prosecute any alcohol or drug abuse patient.[facility] HospitalIn the event this information is protected by the Federal Confidentiality of Alcohol and Drug Abuse Patient Records regulations: The Federal rules restrict any use of the information to criminally investigate or prosecute any alcohol or drug abuse patient.[facility] HospitalIn the event this information is protected by the Federal Confidentiality of Alcohol and Drug Abuse Patient Records regulations: The Federal rules restrict any use of the information to criminally investigate or prosecute any alcohol or drug abuse patient.[facility] HospitalIn the event this information is protected by the Federal Confidentiality of Alcohol and Drug Abuse Patient Records regulations: The Federal rules restrict any use of the information to criminally investigate or prosecute any alcohol or drug abuse patient.[facility] HospitalIn the event this information is protected by the Federal Confidentiality of Alcohol and Drug Abuse Patient Records regulations: The Federal rules restrict any use of the information to criminally investigate or prosecute any alcohol or drug abuse patient.[facility] HospitalIn the event this information is protected by the Federal Confidentiality of Alcohol and Drug Abuse Patient Records regulations: The Federal rules restrict any use of the information to criminally investigate or prosecute any alcohol or drug abuse patient.[facility] HospitalIn the event this information is protected by the Federal Confidentiality of Alcohol and Drug Abuse Patient Records regulations: The Federal rules restrict any use of the information to criminally investigate or prosecute any alcohol or drug abuse patient.[facility] HospitalIn the event this information is protected by the Federal Confidentiality of Alcohol and Drug Abuse Patient Records regulations: The Federal rules restrict any use of the information to criminally investigate or prosecute any alcohol or drug abuse patient.[facility] HospitalIn the event this information is protected by the Federal Confidentiality of Alcohol and Drug Abuse Patient Records regulations: The Federal rules restrict any use of the information to criminally investigate or prosecute any alcohol or drug abuse patient.[facility] HospitalIn the event this information is protected by the Federal Confidentiality of Alcohol and Drug Abuse Patient Records regulations: The Federal rules restrict any use of the information to criminally investigate or prosecute any alcohol or drug abuse patient.[facility] HospitalIn the event this information is protected by the Federal Confidentiality of Alcohol and Drug Abuse Patient Records regulations: The Federal rules restrict any use of the information to criminally investigate or prosecute any alcohol or drug abuse patient.[facility] HospitalIn the event this information is protected by the Federal Confidentiality of Alcohol and Drug Abuse Patient Records regulations: The Federal rules restrict any use of the information to criminally investigate or prosecute any alcohol or drug abuse patient.[facility] HospitalIn the event this information is protected by the Federal Confidentiality of Alcohol and Drug Abuse Patient Records regulations: The Federal rules restrict any use of the information to criminally investigate or prosecute any alcohol or drug abuse patient.[facility] HospitalIn the event this information is protected by the Federal Confidentiality of Alcohol and Drug Abuse Patient Records regulations: The Federal rules restrict any use of the information to criminally investigate or prosecute any alcohol or drug abuse patient.[facility] HospitalIn the event this information is protected by the Federal Confidentiality of Alcohol and Drug Abuse Patient Records regulations: The Federal rules restrict any use of the information to criminally investigate or prosecute any alcohol or drug abuse patient.[facility] HospitalIn the event this information is protected by the Federal Confidentiality of Alcohol and Drug Abuse Patient Records regulations: The Federal rules restrict any use of the information to criminally investigate or prosecute any alcohol or drug abuse patient.[facility] HospitalIn the event this information is protected by the Federal Confidentiality of Alcohol and Drug Abuse Patient Records regulations: The Federal rules restrict any use of the information to criminally investigate or prosecute any alcohol or drug abuse patient.[facility] HospitalIn the event this information is protected by the Federal Confidentiality of Alcohol and Drug Abuse Patient Records regulations: The Federal rules restrict any use of the information to criminally investigate or prosecute any alcohol or drug abuse patient.[facility] HospitalIn the event this information is protected by the Federal Confidentiality of Alcohol and Drug Abuse Patient Records regulations: The Federal rules restrict any use of the information to criminally investigate or prosecute any alcohol or drug abuse patient.[facility] HospitalIn the event this information is protected by the Federal Confidentiality of Alcohol and Drug Abuse Patient Records regulations: The Federal rules restrict any use of the information to criminally investigate or prosecute any alcohol or drug abuse patient.[facility] HospitalIn the event this information is protected by the Federal Confidentiality of Alcohol and Drug Abuse Patient Records regulations: The Federal rules restrict any use of the information to criminally investigate or prosecute any alcohol or drug abuse patient.[facility] HospitalIn the event this information is protected by the Federal Confidentiality of Alcohol and Drug Abuse Patient Records regulations: The Federal rules restrict any use of the information to criminally investigate or prosecute any alcohol or drug abuse patient.[facility] HospitalIn the event this information is protected by the Federal Confidentiality of Alcohol and Drug Abuse Patient Records regulations: The Federal rules restrict any use of the information to criminally investigate or prosecute any alcohol or drug abuse patient.[facility] HospitalIn the event this information is protected by the Federal Confidentiality of Alcohol and Drug Abuse Patient Records regulations: The Federal rules restrict any use of the information to criminally investigate or prosecute any alcohol or drug abuse patient.[facility] HospitalIn the event this information is protected by the Federal Confidentiality of Alcohol and Drug Abuse Patient Records regulations: The Federal rules restrict any use of the information to criminally investigate or prosecute any alcohol or drug abuse patient.[facility] HospitalIn the event this information is protected by the Federal Confidentiality of Alcohol and Drug Abuse Patient Records regulations: The Federal rules restrict any use of the information to criminally investigate or prosecute any alcohol or drug abuse patient.[facility] HospitalIn the event this information is protected by the Federal Confidentiality of Alcohol and Drug Abuse Patient Records regulations: The Federal rules restrict any use of the information to criminally investigate or prosecute any alcohol or drug abuse patient.[facility] HospitalIn the event this information is protected by the Federal Confidentiality of Alcohol and Drug Abuse Patient Records regulations: The Federal rules restrict any use of the information to criminally investigate or prosecute any alcohol or drug abuse patient.[facility] HospitalIn the event this information is protected by the Federal Confidentiality of Alcohol and Drug Abuse Patient Records regulations: The Federal rules restrict any use of the information to criminally investigate or prosecute any alcohol or drug abuse patient.[facility] HospitalIn the event this information is protected by the Federal Confidentiality of Alcohol and Drug Abuse Patient Records regulations: The Federal rules restrict any use of the information to criminally investigate or prosecute any alcohol or drug abuse patient.[facility] HospitalIn the event this information is protected by the Federal Confidentiality of Alcohol and Drug Abuse Patient Records regulations: The Federal rules restrict any use of the information to criminally investigate or prosecute any alcohol or drug abuse patient.[facility] HospitalIn the event this information is protected by the Federal Confidentiality of Alcohol and Drug Abuse Patient Records regulations: The Federal rules restrict any use of the information to criminally investigate or prosecute any alcohol or drug abuse patient.[facility] HospitalIn the event this information is protected by the Federal Confidentiality of Alcohol and Drug Abuse Patient Records regulations: The Federal rules restrict any use of the information to criminally investigate or prosecute any alcohol or drug abuse patient.[facility] HospitalIn the event this information is protected by the Federal Confidentiality of Alcohol and Drug Abuse Patient Records regulations: The Federal rules restrict any use of the information to criminally investigate or prosecute any alcohol or drug abuse patient.[facility] HospitalIn the event this information is protected by the Federal Confidentiality of Alcohol and Drug Abuse Patient Records regulations: The Federal rules restrict any use of the information to criminally investigate or prosecute any alcohol or drug abuse patient.[facility] HospitalIn the event this information is protected by the Federal Confidentiality of Alcohol and Drug Abuse Patient Records regulations: The Federal rules restrict any use of the information to criminally investigate or prosecute any alcohol or drug abuse patient.[facility] HospitalIn the event this information is protected by the Federal Confidentiality of Alcohol and Drug Abuse Patient Records regulations: The Federal rules restrict any use of the information to criminally investigate or prosecute any alcohol or drug abuse patient.[facility] HospitalIn the event this information is protected by the Federal Confidentiality of Alcohol and Drug Abuse Patient Records regulations: The Federal rules restrict any use of the information to criminally investigate or prosecute any alcohol or drug abuse patient.[facility] HospitalIn the event this information is protected by the Federal Confidentiality of Alcohol and Drug Abuse Patient Records regulations: The Federal rules restrict any use of the information to criminally investigate or prosecute any alcohol or drug abuse patient.[facility] HospitalIn the event this information is protected by the Federal Confidentiality of Alcohol and Drug Abuse Patient Records regulations: The Federal rules restrict any use of the information to criminally investigate or prosecute any alcohol or drug abuse patient.[facility] HospitalIn the event this information is protected by the Federal Confidentiality of Alcohol and Drug Abuse Patient Records regulations: The Federal rules restrict any use of the information to criminally investigate or prosecute any alcohol or drug abuse patient.[facility] HospitalIn the event this information is protected by the Federal Confidentiality of Alcohol and Drug Abuse Patient Records regulations: The Federal rules restrict any use of the information to criminally investigate or prosecute any alcohol or drug abuse patient.[facility] HospitalIn the event this information is protected by the Federal Confidentiality of Alcohol and Drug Abuse Patient Records regulations: The Federal rules restrict any use of the information to criminally investigate or prosecute any alcohol or drug abuse patient.[facility] HospitalIn the event this information is protected by the Federal Confidentiality of Alcohol and Drug Abuse Patient Records regulations: The Federal rules restrict any use of the information to criminally investigate or prosecute any alcohol or drug abuse patient.[facility] HospitalIn the event this information is protected by the Federal Confidentiality of Alcohol and Drug Abuse Patient Records regulations: The Federal rules restrict any use of the information to criminally investigate or prosecute any alcohol or drug abuse patient.[facility] HospitalIn the event this information is protected by the Federal Confidentiality of Alcohol and Drug Abuse Patient Records regulations: The Federal rules restrict any use of the information to criminally investigate or prosecute any alcohol or drug abuse patient.[facility] HospitalIn the event this information is protected by the Federal Confidentiality of Alcohol and Drug Abuse Patient Records regulations: The Federal rules restrict any use of the information to criminally investigate or prosecute any alcohol or drug abuse patient.[facility] HospitalIn the event this information is protected by the Federal Confidentiality of Alcohol and Drug Abuse Patient Records regulations: The Federal rules restrict any use of the information to criminally investigate or prosecute any alcohol or drug abuse patient.[facility] HospitalIn the event this information is protected by the Federal Confidentiality of Alcohol and Drug Abuse Patient Records regulations: The Federal rules restrict any use of the information to criminally investigate or prosecute any alcohol or drug abuse patient.[facility] Care Teams (unrecognized sec tion and content) Television News Producer Relationship Specialty Start Date End Date Tacos Hein MD [address] [place] [id number] PCP - General Family Practice 01/22/21 Television News Producer Relationship Specialty Start Date End Date Tacos Hein MD [address] [place] [address] [id number] PCP - General Family Practice 01/22/21 Television News Producer Relationship Specialty Start Date End Date Tacos Hein MD [address] [place] [id number] PCP - General Family Practice 01/22/21 Television News Producer Relationship Specialty Start Date End Date Tacos Hein MD [address] [place] [address] [id number] PCP - General Family Practice 01/22/21 Television News Producer Relationship Specialty Start Date End Date Tacos Hein MD [address] [place] [id number] PCP - General Family Practice 01/22/21 Television News Producer Relationship Specialty Start Date End Date Tacos Hein MD [address] [place] [address] PCP - General Family Practice 01/22/21 Television News Producer Relationship Specialty Start Date End Date Tacos Hein MD [address] [place] [address] PCP - General Family Practice 01/22/21 Television News Producer Relationship Specialty Start Date End Date Tacos Hein MD [address] [place] [address], [place] [address] PCP - General Family Practice 01/22/21 Television News Producer Relationship Specialty Start Date End Date Tacos Hein MD [address] [place] [address], [place] [address] PCP - General Family Practice 01/22/21 Television News Producer Relationship Specialty Start Date End Date Tacos Hein MD [address] [place] [address], [place] [address] PCP - General Family Medicine 01/22/21 Television News Producer Relationship Specialty Start Date End Date Tacos Hein MD [facility] [place] [address] PCP - General Family Medicine 01/22/21 Television News Producer Relationship Specialty Start Date End Date Tacos Hein MD [facility] [place] [address] PCP - General Family Medicine 01/22/21 Television News Producer Relationship Specialty Start Date End Date Tacos Hein MD [address] [place] [address], [place] [address] PCP - General Family Medicine 01/22/21 Television News Producer Relationship Specialty Start Date End Date Tacos Hein MD [address] [place] [address], [place] [address] PCP - General Family Medicine 01/22/21 Television News Producer Relationship Specialty Start Date End Date Tacos Hein MD [address] [place] [address] PCP - General Family Medicine 01/22/21 Television News Producer Relationship Specialty Start Date End Date Tacos Hein MD [address] [place] [address] PCP - General Family Medicine 01/22/21 Television News Producer Relationship Specialty Start Date End Date Tacos Hein MD [address] [place] [address] PCP - General Family Medicine 01/22/21 Television News Producer Relationship Specialty Start Date End Date Tacos Hein MD [address] [place] [address] PCP - General Family Medicine 01/22/21 Television News Producer Relationship Specialty Start Date End Date Tacos Hein MD [address] [place] [address] PCP - General Family Medicine 01/22/21 Television News Producer Relationship Specialty Start Date End Date Tacos Hein MD [address] [place] [address] PCP - General Family Medicine 01/22/21 Television News Producer Relationship Specialty Start Date End Date Tacos Hein MD [address] [place] [address] PCP - General Family Medicine 01/22/21 Television News Producer Relationship Specialty Start Date End Date Tacos Hein MD [address] [place] [address] PCP - General Family Medicine 01/22/21 Television News Producer Relationship Specialty Start Date End Date Tacos Hein MD [address] [place] [address] PCP - General Family Medicine 01/22/21 Television News Producer Relationship Specialty Start Date End Date Tacos Hein MD [address] [place] [address] PCP - General Family Medicine 01/22/21 Television News Producer Relationship Specialty Start Date End Date Tacos Hein MD [address] [place], [place] [address]371 PCP - General Family Medicine 01/22/21 Team [...] Pro vider, Attending Provider, Referring Provider Active Television News Producer Relationship Specialty Start Date End Date Tacos Hein MD [address] [place] [address] PCP - General Family Medicine 01/22/21 Television News Producer Relationship Specialty Start Date End Date Tacos Hein MD [address] [place] [address] PCP - General Family Medicine 01/22/21 Television News Producer Relationship Specialty Start Date End Date Tacos Hein MD [address] [place] [address] PCP - General Family Medicine 01/22/21 Television News Producer Relationship Specialty Start Date End Date Tacos Hein MD [address] [place] [address] PCP - General Family Medicine 01/22/21 Television News Producer Relationship Specialty Start Date End Date Tacos Hein MD [address] [place] [address] PCP - General Family Medicine 01/22/21 Television News Producer Relationship Specialty Start Date End Date Tacos Hein MD [address] [place] [address] PCP - General Family Medicine 01/22/21 Television News Producer Relationship Specialty Start Date End Date Tacos Hein MD [address] [place] [address] PCP - General Family Medicine 01/22/21 Television News Producer Relationship Specialty Start Date End Date Tacos Hein MD [address] [place] [address] PCP - General Family Medicine 01/22/21 Television News Producer Relationship Specialty Start Date End Date Tacos Hein MD [address] [place] [address] PCP - General Family Medicine 01/22/21 Television News Producer Relationship Specialty Start Date End Date Tacos Hein MD [address] [place] [address] PCP - General Family Medicine 01/22/21 Tess Navarrete, SUPERINTENDENT COMPRESSOR STATIONS.ELL TUTOR [address] [place] [address] Senior Microstrategy Developer Family Medicine 07/02/24 Madison Mariee PA-C [address] [place] [address] Senior Microstrategy Developer Family Medicine 07/02/24 Television News Producer Relationship Specialty Start Date End Date Tacos Hein MD [address] [place] [address] PCP - General Family Medicine 01/22/21 Tess Navarrete, JUANITA.ELL TUTOR [address] [place] [address] Senior Microstrategy Developer Family Medicine 07/02/24 Madison Mariee PA-C [address] [place] [address] Senior Microstrategy Developer Family Medicine 07/02/24 Television News Producer Relationship Specialty Start Date End Date Tacos Hein MD [address] [place] [address] PCP - General Family Medicine 01/22/21 Tess Navarrete, SUPERINTENDENT COMPRESSOR STATIONS.ELL TUTOR [address] [place] [address] Senior Microstrategy Developer Family Medicine 07/02/24 Madison Mariee PA-C [address] [place] [address] Senior Microstrategy Developer Family Medicine 07/02/24 Television News Producer Relationship Specialty Start Date End Date Tacos Hein MD [address] [place] [address] PCP - General Family Medicine 01/22/21 Tess Navarrete APRN.ELL TUTOR [address] [place] [address] Senior Microstrategy Developer Family Medicine 07/02/24 Madison Mariee PA-C [address] [place] [address] Senior Microstrategy Developer Family Medicine 07/02/24 Television News Producer Relationship Specialty Start Date End Date Tacos Hein MD [address] [place] [address] PCP - General Family Medicine 01/22/21 Tess Navarrete APRN.ELL TUTOR [address] [place] [address] Senior Microstrategy Developer Family Medicine 07/02/24 Madison Mariee PA-C [address] [place] [address] Senior Microstrategy Developer Family Medicine 07/02/24 Television News Producer Relationship Specialty Start Date End Date Tacos Hein MD [address] [place] [address] PCP - General Family Medicine 01/22/21 Tess Navarrete APRN.ELL TUTOR [address] [place] [address] Senior Microstrategy Developer Family Medicine 07/02/24 Madison Mariee PA-C [address] [place] [address] [facility] 07/02/24 Television News Producer Relationship Specialty Start Date End Date Tacos Hein MD [address] [place] [address] PCP - General Family Medicine 01/22/21 Tess Navarrete, JUANITA.ELL TUTOR [address] [place] [address] Senior Microstrategy Developer Family [facility] 07/02/24 Madison Mariee PA-C [address] [place] [address] [facility] 07/02/24 Television News Producer Relationship Specialty Start Date End Date Tacos Hein MD [address] [place] [address] PCP - General Family Medicine 01/22/21 Tess Navarrete, SUPERINTENDENT COMPRESSOR STATIONS.ELL TUTOR [address] [place] [address] [facility] 07/02/24 Madison Mariee PA-C [address] [place] [address] [facility] 07/02/24 Television News Producer Relationship Specialty Start Date End Date Tacos Hein MD [address] [place] [address] PCP - General Family Medicine 01/22/21 Tess Navarrete, SUPERINTENDENT COMPRESSOR STATIONS.ELL TUTOR [address] [place] [address] Senior Microstrategy Developer Family Medicine 07/02/24 Madison Mariee PA-C [address] [place] [address] Senior Microstrategy Developer Family Medicine 07/02/24 Rody Pablo PA-C [address] [facility] [place] [address] Neurology 09/26/24 Television News Producer Relationship Specialty Start Date End Date Tacos Hein MD [address] [place] [address] PCP - General Family Medicine 01/22/21 Tess Navarrete, JUANITA.ELL TUTOR [address] [place] [address] Senior Microstrategy Developer Family Medicine 07/02/24 Madison Mariee PA-C [address] [place] [address] Senior Microstrategy Developer Family Medicine 07/02/24 Rody Pablo PA-C [address] [place] [address] Neurology 09/26/24 Television News Producer Relationship Specialty Start Date End Date Tacos Hein MD [address] [place] [address] PCP - General Family Medicine 01/22/21 Tess Navarrete, JUANITA.ELL TUTOR [address] [place] [address] Senior Microstrategy Developer Family Medicine 07/02/24 Madison Mariee PA-C [address] [place] [address] Senior Microstrategy Developer Family Medicine 07/02/24 Rody Pablo PA-C [address] [facility] [place] [address] Neurology 09/26/24 Television News Producer Relationship Specialty Start Date End Date Tacos Hein MD [address] [place] [address] PCP - General Family Medicine 01/22/21 Tess Navarrete, JUANITA.ELL TUTOR [address] [facility] [place] [address] Senior Microstrategy Developer Family Medicine 07/02/24 Madison Mariee PA-C [address] [place] [address] Senior Microstrategy Developer Family Medicine 07/02/24 Rody Pablo PA-C [address] [facility] [place] [address] Neurology 09/26/24 Television News Producer Relationship Specialty Start Date End Date Tacos Hein MD [address] [place] [address] PCP - General Family Medicine 01/22/21 Tess Navarrete, SUPERINTENDENT COMPRESSOR STATIONS.ELL TUTOR [address] [facility] [place] [address] Senior Microstrategy Developer Family Medicine 07/02/24 Madison Mariee PA-C [address] [place] [address] Senior Microstrategy Developer Family Medicine 07/02/24 Rody Pablo PA-C [address] [facility], [place] [address] [phone] Neurology 09/26/24 Television News Producer Relationship Specialty Start Date End Date Tacos Hein MD [address] [place] [address] PCP - General Family Medicine 01/22/21 Tess Navarrete, JUANITA.ELL TUTOR [address] [place] [address] Senior Microstrategy Developer Family Medicine 07/02/24 Madison Mariee PA-C [address] [place] [address] Senior Microstrategy Developer Family Medicine 07/02/24 Rody Pablo PA-C [address] [place] [address] Neurology 09/26/24 Television News Producer Relationship Specialty Start Date End Date Tacos Hein MD [address] [place] [address] PCP - General Family Medicine 01/22/21 Tess Navarrete, SUPERINTENDENT COMPRESSOR STATIONS.ELL TUTOR [address] [place] [address] Senior Microstrategy Developer Family Medicine 07/02/24 Madison Mariee PA-C [address] [place] [address] Senior Microstrategy Developer Family Medicine 07/02/24 Rody Pablo PA-C [address] [place] [address] Neurology 09/26/24 Television News Producer Relationship Specialty Start Date End Date Tacos Hein MD [address] [place] [address] PCP - General Family Medicine 01/22/21 Tess Navarrete APRN.ELL TUTOR [address] [place] [address] Senior Microstrategy Developer Family [facility] 07/02/24 Madison Mariee PA-C [address] [place] [address] Senior Microstrategy Developer Family [facility] 07/02/24 Rody Pablo PA-C [facility] [place] [address] Neurology 09/26/24 Television News Producer Relationship Specialty Start Date End Date Tacos Hein MD [address] [place] [address] PCP - General Family Medicine 01/22/21 Tess Navarrete APRN.ELL TUTOR [address] [place] [address] Senior Microstrategy Developer Family [facility] 07/02/24 Madison Mariee PA-C [facility] [place] [address] Senior [facility]strategy [facility] 07/02/24 Rody Pablo PA-C [facility] [place] [address] Neurology 09/26/24 Team Status: Active Member Role [...] November 15, 2024 End: November 15, 2024 Television News Producer Relationship Specialty Start Date End Date Tacos Hein MD [facility] [place], [place] [address] PCP - General Family Medicine 01/22/21 Tess Navarrete APRN.CNP [address] [place] [phone] [facility] 07/02/24 Madison Mariee PA-C [address] [place] [phone] [facility] 07/02/24 Rody Pablo PA-C [address] [place] [phone] Neurology 09/26/24 Television News Producer Relationship Specialty Start Date End Date Tacos Hein MD [address] [place], [place] [address]86[address] PCP - General Family Medicine 01/22/21 Madison Mariee PA-C [address] [place] [address] Senior Microstrategy Developer Family [facility] 07/02/24 Rody Pablo PA-C [address] [facility] [place] [address] Neurology 09/26/24 Television News Producer Relationship Specialty Start Date End Date Tacos Hein MD [address] [place] [address] PCP - General Family Medicine 01/22/21 Tess Navarrete APRN.ELL TUTOR [address] [place] [address] Senior Microstrategy Developer Family [facility] 07/02/24 12/11/24 Madison Mariee PA-C [address] [place] [address] Senior Microstrategy Developer Family Medicine 07/02/24 Rody Pablo PA-C [address] [facility] [place] [address] Neurology 09/26/24 Television News Producer Relationship Specialty Start Date End Date Tacos Hein MD [address] [place] [address] PCP - General Family Medicine 01/22/21 Rody Pablo PA-C [address] [facility] [place] [address] Neurology 09/26/24 Tess Navarrete APRN.ELL TUTOR [address] [place] [address] Senior Microstrategy Developer Family Medicine 12/26/24 Madison Mariee PA-C [address] [place] [address] Senior Microstrategy Developer Family Medicine 12/26/24 Television News Producer Relationship Specialty Start Date End Date Tacos Hein MD [address] [place] [address] PCP - General Family Medicine 01/22/21 Rody Pablo PA-C [address] [facility] [place] [address] Neurology 09/26/24 Tess Navarrete APRN.ELL TUTOR [address] [place] [address] Senior Microstrategy Developer Family Medicine 12/26/24 Madison Mariee PA-C [address] [place] [address] Senior Microstrategy Developer Family Medicine 12/26/24 Television News Producer Relationship Specialty Start Date End Date Tacos Hein MD [address] [place] [address] PCP - General Family Medicine 01/22/21 Rody Pablo PA-C [address] [facility] [place] [address] Neurology 09/26/24 Tess Navarrete APRN.ELL TUTOR [address] [facility] [place] [address] Senior Microstrategy Developer Family Medicine 12/26/24 Madison Mariee PA-C [address] [place], [place] [phone] [facility] 12/26/24 Television News Producer Relationship Specialty Start Date End Date Tacos Hein MD [address] [place], [place] [id number] PCP - General Family Medicine 01/22/21 Rody Pablo PA-C [address] [place], [place] 9[address] Neurology 09/26/24 Tess Navarrete APRN.ELL TUTOR [address] [place] [address] [phone] [facility] 12/26/24 Madison Mariee PA-C [address] [place], [place] [phone] [facility] 12/26/24 Team Status: Inactive Member Role Status [...] December 27, 2024 End: December 27, 2024 Television News Producer Relationship Specialty Start Date End Date Tacos Hein MD [address] [place], [place] [id number] PCP - General Family Medicine 01/22/21 Rody Pablo PA-C [address] [facility] [place] [address] Neurology 09/26/24 Tess Navarrete APRN.ELL TUTOR [address] [facility] [place], [place] [address] [phone] Senior Microstrategy Developer Family [facility] 12/26/24 Madison Mariee PA-C [address] [place] [address] Senior Microstrategy Developer Family [facility] 12/26/24 Television News Producer Relationship Specialty Start Date End Date Tacos Hein MD [address] [place] [address] PCP - General Family Medicine 01/22/21 Rody Pablo PA-C [address] [facility] [place] [address] Neurology 09/26/24 Tess Navarrete, JUANITA.ELL TUTOR [address] [facility] [place] [address] Senior Microstrategy Developer Family [facility] 12/26/24 Madison Mariee PA-C [address] [place] [address] Senior Microstrategy Developer Family [facility] 12/26/24 Team Status: Active Member Role/Relationship Status Dates Dr. Tacos Hein MD Primary Care Provider Active Team Status: Inactive Member Role/Relationship Status Dates Dr. Tacos Hein MD Primary Care Provider Active Start: November 15, 2024 End: November 15, 2024 Dr. Isai Landeros , Attending Provider Active Start: November 15, 2024 End: November 15, 2024 Dr. Isai Landeros DO Emergency Provider Active Start: November 15, 2024 End: November 15, 2024 Team Status: Inactive Member Role/Relationship Status Dates Dr. Tacos Hein MD Primary Care Provider Active Start: December 27, 2024 End: December 27, 2024 Dr. Tacos Hein MD Referring Provider Active Start: December 27, 2024 End: December 27, 2024 Dr. Kailee Mcnair MD Attending Provider Active Start: December 27, 2024 End: December 27, 2024 Team Status: Inactive Member Role/Relationship Status Dates Dr. Tacos Hein MD Primary Care Provider Active Start: January 20, 2025 End: January 20, 2025 Dr. Kailee Mcnair MD Attending Provider Active Start: January 20, 2025 End: January 20, 2025 Dr. Kailee Mcnair MD Referring Provider Active Start: January 20, 2025 End: January 20, 2025 Goals (unrecognized section and content) Goals may [...] ized section and content) DATE CREATED AUTHOR 01/21/2025 [facility] DATE CREATED AUTHOR AUTHOR'S ORGANIZ ATION 01/27/2025 [facility] FOR RECORDS PERTAINING TO PATIENTS WHO [...] BE BASED ON THE PRIMARY CLINICAL RECORDS. [facility] [email or web address] [facility]. provides no warranty or guarantee of the accuracy or completeness of information in this document.
== END | disposition home or self-care (01) ==
LOC: CVS 13:53
PROVIDERS: PCP Family Medicine; Referring Provider Internal Medicine Cardiovascular Disease; Visit Provider Internal Medicine Cardiovascular Disease
DX: R07.9 Chest pain, unspecified (principal); I49.8 Other specified cardiac arrhythmias; I47.10 Supraventricular tachycardia, unspecified
CPT/HCPCS: 93306

== ENCOUNTER 2025-03-16 16:16 | Observation (INO) | payer MEDICARE, SELFPAY ==
[2025-03-15 08:28] VITALS: BMI 22.3
[2025-03-16] VITALS (9 sets, daily range): BP systolic 105–123; BP diastolic 69–85; PULSE 63–77; RESP 14–18; TEMP 36.2–37.1; O2SAT 95–99
[2025-03-16 08:41] LABS: Hematocrit 39.0 % (37-47); Hemoglobin 13.1 g/dL (12.0-15.0); Mean Corp Hgb Conc 33.6 g/dL (32-36); Mean Corpuscular Volume 91.8 fL (81-99); Mean Platelet Vol. 9.0 fl (6.2-12.0); Platelet Count 253 K/mm3 (150-450); RBC Distribution Width CV 13.3 % (11.6-14.6); RBC Distribution Width SD 45.2 fl (35.1-43.9); Red Blood Count 4.25 M/mm3 (4.2-5.4); White Blood Count 6.0 K/mm3 (4.4-11.0)
[2025-03-16 09:02] LABS: Anion Gap 11 (5-15); BUN 22 mg/dL (4-19); BUN/Creat Ratio 29.6 RATIO (10-20); Calcium,Total 9.4 mg/dL (7.6-11.0); Carbon Dioxide 26.7 mmol/L (21.0-32.0); Chloride 101 mmol/L (98-108); Estimated Creatinine Clearance 54.08 ml/min (50-250); Glucose 93 mg/dL (70-99); Potassium 4.4 mmol/L (3.3-5.1)
--- NOTE | 2025-03-16 11:37 | ELECTROSTU_ITS ---
Electrophysiology Report Electrophysiology Report Lupis Ramirez is a 75 year old female who has a past medical history of osteoporosis, who presented to the [facility] lab for further evaluation regarding SVT. Procedure Summary * Patient prepped and draped in sterile fashion. * Right groin infiltrated with lidocaine. * Right femoral access obtained x3 with ultrasound guidance. * Sheaths inserted into femoral veins via Seldinger technique. * Catheters inserted through right groin. * EPS results listed below in conclusions. * Isuprel testing performed. * Sheaths pulled in lab and hemostasis achieved per protocol. Findings: BASELINE SCL: 950 ms AH: 105 ms HV: 45ms Maximum SNRT: 1346ms CSNRT: 396ms AVBCL: 530ms VABCL: 530ms Decremental Conduction? Y Concentric: Y FP ERP 480ms @ 700ms, SP ERP 300 @ 700ms w/ echo beats VERP 460ms @ 700ms BASELINE Inducible Tachycardia: Y Diagnosis: AVNRT VA interval at Hisduring tachycardia: <70ms Ablation of: slow pathway Ablation Parameters: energy titration Ablation Catheter Used: irrigated RF Results of Ablation Site of Ablation: slow pathway Successful Post Ablation Testing BASELINE ISUPREL SCL: 900ms SCL: 600ms AH: 100ms AH: junctional HV: 45ms HV: 45ms AVBCL: 530ms AVBCL: 330ms AVN ERP N/A AVN ERP <200ms @ 500ms VA BCL: 530ms VA BCL: 320ms Conclusions 1. Baseline rhythm is sinus. 2. Normal sinus node function (longest SNRT 1346ms). 3. Normal AV node function, normal infranodal conduction (HV= 45ms). 4. No evidence of accessory pathway. 5. 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 VA conduction present and is decremental.? 7. No inducible SVT at completion of procedure at baseline and on isuprel testing Recommendations 1. routing sheath management 2. Bedrest for 3 hours 3. The patient can continue to follow-up with Dr. Schofield. 4. Observe overnight 5. Stop metoprolol
[2025-03-16] MEDS: Glycerin/Hypromellose/PEG400 15 ml Bottle 1 DRP EACH EYE (21:35)
[2025-03-16] MEDS: MELATONIN 10 MG TABLET PO (21:42)
[2025-03-17 02:15] VITALS: BP 118/81; PULSE 61; RESP 14; TEMP 36.3; O2SAT 98
[2025-03-17 05:44] LABS: Hematocrit 35.4 % (37-47); Hemoglobin 11.8 g/dL (12.0-15.0); Mean Corp Hgb Conc 33.3 g/dL (32-36); Mean Corpuscular Volume 90.8 fL (81-99); Mean Platelet Vol. 9.2 fl (6.2-12.0); Platelet Count 227 K/mm3 (150-450); RBC Distribution Width CV 13.3 % (11.6-14.6); RBC Distribution Width SD 44.4 fl (35.1-43.9); Red Blood Count 3.90 M/mm3 (4.2-5.4); White Blood Count 6.5 K/mm3 (4.4-11.0)
[2025-03-17 05:54] LABS: Prothrombin Time (Protime)PT. 12.8 SECONDS (11.7-14.9)
[2025-03-17 05:55] LABS: Partial Thromboplast Time 26.7 Seconds (24.1-36.2)
[2025-03-17 06:56] LABS: Anion Gap 13 (5-15); BUN 18 mg/dL (4-19); BUN/Creat Ratio 25.7 RATIO (10-20); Calcium,Total 9.1 mg/dL (7.6-11.0); Carbon Dioxide 23.8 mmol/L (21.0-32.0); Chloride 102 mmol/L (98-108); Estimated Creatinine Clearance 54.08 ml/min (50-250); Glucose 85 mg/dL (70-99); Potassium 4.3 mmol/L (3.3-5.1)
--- NOTE | 2025-03-17 07:01 | DCINST_ITS ---
Discharge Instructions DC O2, CPAP, BIPAP needs Home O2 Discharge instructions: No Dressing / Incision Discharge Activity: Return to Normal Activity Additional Activity Instructions:: You must have someone drive you home. Do not drive until instructed by your doctor. You must have someone stay with you all night after your test. Rest in bed or on the couch until the next morning. Limit the number of times you go up and down stairs the day of your test. Apply pressure to the puncture site if you sneeze or cough. Dressing / Incision Call your doctor if your incision/area has: Increased Pain/ Swelling, Increased Redness, Foul Smelling Discharge and Swelling at the incision site Call your doctor if you observe: Fever of 101 or Higher Additional Dressing/Incision Instructions:: Keep the dressing (bandage) on until the next morning. You may then shower, but do not take a tub bath for 5 days after your test. It is normal to have some tenderness and discomfort at the puncture site. Sometimes bruising also occurs. However, if pain, numbness, or coldness occurs below the puncture site (in your leg, toes, arms or fingers) call your doctor at once. You may have a small, marble sized knot at the puncture site. This is normal. Do not rub it. It will go away in 4-6 weeks. Bleeding can occur from the area where the puncture was done. Blood may spurt or drip from the site. If blood spurts, apply pressure right away to stop bleeding and call 911. Although rare, bleeding into the tissue (hematoma) can also occur. If this happens, a large, firm area goose egg under the skin will appear. If any of these occur, lie down as flat as you can and have someone apply firm pressure to the cath site with a gauze pad or a clean washcloth for 10-15 minutes. Call 911 or go to the Emergency Department. Follow Up Care When: Heart group will call for appointment Test Results: Test results from this visit will be discussed in further detail at your follow- up appointment, if applicable. Discharge Plan Admission Admit Date/Time: 03/16/25 16:16 Attending Provider: Rasta Alejandro Primary Care Provider: Tacos Johnson Discharge Orders/Prescriptions Prescriptions: Continued Calcium Antacid 300 mg (750 mg) tablet,chewable 300 mg PO QDAY melatonin PO HS PRN (Reason: sleep) L.acidoph,saliva-B.bif-S.therm [Acidophilus Probiotic Blend] 1 tab PO DAILY folic acid 800 mcg tablet 0.8 mg PO QDAY multivitamin Tablet 1 tab PO QDAY tizanidine 2 mg tablet 2 - 4 mg PO Q6-8H PRN (Reason: muscle spasticity) albuterol sulfate 90 mcg/actuation HFA aerosol inhaler 2 puff inhalation Q4H PRN (Reason: shortness of breath or wheezing) Prolia 60 mg/mL syringe 60 mg subcut .[id number] gabapentin 300 mg capsule 300 mg PO Q12H meloxicam 7.5 mg tablet 7.5 mg PO DAILY montelukast 10 mg tablet 10 mg PO QHS fluticasone propionate 50 mcg/actuation spray,suspension 2 spray INTRANASAL DAILY cyclosporine [Restasis] 0.05 % dropperette 1 drp ophthalmic (eye) BID Qvar RediHaler 40 mcg/actuation HFA aerosol breath activated 2 inh inhalation BID rosuvastatin [Crestor] 5 mg tablet 5 mg PO QDAY Qty: 30 6RF Discontinued metoprolol succinate 25 mg tablet extended release 24 hr 12.5 mg PO QDAY Qty: 45 3RF Referrals / Follow Up: Tacos Johnson MD [Primary Care Provider] - Disposition Disposition (needs filled in before D/C Order can be placed): Home, Self Care
[2025-03-17 07:30] VITALS: BP 116/72; PULSE 72; RESP 15; TEMP 36.5; O2SAT 97
[2025-03-17] MEDS: Lactobacillis Acidophilus 1 CAP PO (08:12)
[2025-03-17] MEDS: Glycerin/Hypromellose/PEG400 15 ml Bottle 1 DRP EACH EYE (08:12)
[2025-03-17 11:36] VITALS: BP 96/73; PULSE 66; RESP 15; TEMP 36.4; O2SAT 99
== END 2025-03-17 11:40 | disposition home or self-care (01) ==
LOC: CLSP 16:24 → PCU 16:24
PROVIDERS: Internal Medicine; Admitting Provider Internal Medicine Cardiovascular Disease; PCP Family Medicine; Referring Provider Internal Medicine Cardiovascular Disease; Visit Provider Internal Medicine Cardiovascular Disease
DX: I47.10 Supraventricular tachycardia, unspecified (principal); R00.2 Palpitations; E78.5 Hyperlipidemia, unspecified; J45.20 Mild intermittent asthma, uncomplicated; Z79.899 Other long term (current) drug therapy; Z79.51 Long term (current) use of inhaled steroids; M79.7 Fibromyalgia; R42 Dizziness and giddiness; R53.83 Other fatigue; R00.1 Bradycardia, unspecified; I07.1 Rheumatic tricuspid insufficiency; R91.1 Solitary pulmonary nodule
CPT/HCPCS: 36415; 76937; 80048; 85027; 85610; 85730; 93609; 93623; 93653; 99152; 99153; 99221; C1730; C1894; C2630; G0378